=== PATIENT | female | born 1945 | race Caucasian/White ===

== ENCOUNTER 2019-11-27 15:28 | Outpatient (CLI) | payer MEDICARE, SELFPAY ==
--- NOTE | ~2019-11-27 | MR_ITS ---
EXAMINATION: MR brain/brain stem wo/w con EXAM DATE: 11/27/2019 17:00 INDICATION: Trigeminal neuralgia, right facial pain, symptoms 2 months. TECHNIQUE: Multi-sequential, multiplanar MR images of the brain, brainstem, internal auditory canals were obtained without contrast. Whole brain sagittal T1, axial diffusion, gradient echo (T2*), T1, T 2, FLAIR sequences obtained. High resolution coronal 3-D FIESTA, coronal T1 FSE, axial T1 FSPGR of t he internal auditory canals. Patient was then injected with 13 cc Multihance contrast intravenously. Postcontrast axial and coronal T1 weighted whole brain, axial and coronal high resolution T1 IAC seq uences obtained. There is no prior study for comparison. FINDINGS: No evidence of mastoid or middle ear opacification. Prepontine cistern and Meckel's caves are unremarkable. The trigeminal and 7th/8th cranial nerve complexes are symmetric, normal in course and caliber. No cerebellopontine angle masses. Posterior fossa unremarkable. There are no areas of restricted diffusion to suggest acute infarction. There is no acute hemorrhage seen on the T2*, a hemosiderin sensitive sequence. No intraparenchymal brain mass lesion. There is moderate periventricular and subcortical T2/FLAIR signal hyperintensity, nonspecific but probably rel ated to small vessel ischemic disease (microangiopathy). There is mild prominence of the sulci and ventricles related to cerebral atrophy. There are no extra-axial collections. Flow voids are seen in the cerebral arteries on the T2-weighted sequences consistent with their expected patency. Patien t has had bilateral ocular lens surgery. Soft tissue is unremarkable. There are no areas of abnorma l enhancement on the postcontrast images. IMPRESSION: 1. No acute intracranial findings. 2. Chronic age related findings. Reviewed, dictated and finalized at location B. SION TECHNICIAN
[2019-11-27 16:24] LABS: Blood Urea Nitrogen 14 mg/dL (8-26); Estimated Glomerular Filt Rate > 60
== END 2019-11-27 15:29 | disposition home or self-care (01) ==
LOC: ANHIMG 15:33
PROVIDERS: PCP Internal Medicine; Visit Provider Internal Medicine
DX: G50.0 Trigeminal neuralgia (principal)
CPT/HCPCS: 70553; A9577

== ENCOUNTER 2019-12-20 14:14 | Outpatient (CLI) | payer MEDICARE, SELFPAY ==
--- NOTE | ~2019-12-20 | XR_ITS ---
XR lumbar spine 2-3V DATE: 12/20/2019 14:48 INDICATION: Chronic low back pain for years TECHNIQUE: AP, lateral, coned lateral lumbosacral views COMPARISON: 07/16/2015 lumbar spine FINDINGS: There is extensive calcification of the abdominal aorta and iliac arteries. There is mild dextroscoliosis of the lumbar spine. There is degenerative spurring throughout the lowe r thoracic and lumbar spine, with moderate degenerative disc disease of the lumbar and lumbosacral sp ine. No fracture or bone destruction or spondylolisthesis. The lumbar pedicles are intact. The sacroiliac joints appear normal. IMPRESSION: Mild dextro scoliosis Moderate degenerative disc disease of the lumbar spine, degenerative spurring of the lower thoracic s pine Extensive abdominal aortic and iliac arterial calcifications Reviewed, dictated and finalized at location B. ICATION WORKER IMPRESSION: Mild dextro scoliosis Moderate degenerative disc disease of the lumbar spine, degenerative spurring o f the lower thoracic spine Extensive abdominal aortic and iliac arterial calcifications
--- NOTE | ~2019-12-20 | XR_ITS ---
XR hip BI wo pelvis 12/20/2019 14:49 Indication: Bilateral hip pain Procedure: 4 views of each hip Comparison: 07/16/2015 Findings: There is mild bilateral osteoarthritis of the hips. Small loose bodies adjacent to the join t space. There are extensive vascular calcifications. No acute fracture or traumatic malalignment. Pe lvic rings intact. Impression: 1: Mild bilateral symmetric osteoarthritis of the hips. Reviewed, dictated and finalized at location A. MACOLOGY ASSOCIATE Impression: 1: Mild bilateral symmetric osteoarthritis of the hips.
== END 2019-12-20 14:15 | disposition home or self-care (01) ==
LOC: CHSIMG 14:18
PROVIDERS: PCP Internal Medicine; Visit Provider Internal Medicine
DX: M25.512 Pain in left shoulder (principal); M25.511 Pain in right shoulder; J44.9 Chronic obstructive pulmonary disease, unspecified; M25.559 Pain in unspecified hip
CPT/HCPCS: 72100; 73521

== ENCOUNTER 2020-02-05 12:01 | Emergency (ER) | payer MEDICARE, SELFPAY ==
--- NOTE | ~2020-02-05 | XR_ITS ---
EXAMINATION: XR chest 2V EXAM DATE: 02/05/2020 12:43 INDICATION: Cough and congestion. Dyspnea. TECHNIQUE: Frontal and lateral projections of the chest obtained and reviewed. Comparison is made to prior examination from 07/15/2019. FINDINGS: Moderate hyperinflation. Partial right pneumonectomy. No confluent consolidation, pneumoth orax or pleural effusion suspected. Cardiomediastinal silhouette is normal. There is aortic arterial sclerosis. There is tortuosity of the aorta. There are bony degenerative changes. There is no signifi cant interval change. IMPRESSION: No acute cardiopulmonary findings. Reviewed, dictated and finalized at location B.
[2020-02-05 12:14] VITALS: BP 183/98; PULSE 98; RESP 16; TEMP 36.7; O2SAT 96
--- NOTE | 2020-02-05 12:36 | ED.SOB ---
HPI - SOB/Dyspnea General Chief Complaint: Upper Respiratory Infection Stated Complaint: ambulance Source: patient Mode of arrival: EMS Limitations: no limitations History of Present Illness HPI Narrative: 74 y.o. female with COPD has a two days of left anterior chest congestion, increased cough and sputum production- clear/yellow color has not changed. Usually produces 1 - 2 tablespoons/d. At 9:30 today felt more short of breath. She didn't want to be home alone if she was going to have respiratory symptoms. Paramedics describe talking patient into coming to the E.D. NO hx of home 02 use. Smokes 1/2 ppd. Gave herself neb. albuterol this AM; usually 3x/day. Uses Spiriva BID. Does not want to be on steroids. She denies chest/neck/arm pain, leg pain/swelling, fever/chills/sweats. Pt is hungry. has been sheltering at home; son visits periodically. None have been ill with fever/cough and have no known Covid-19 exposure. MD elicited complaint: pain with inspiration (minor left chest discomfort) Severity: mild Exacerbating factors: exertion Relieving factors: oxygen and bronchodilators Known history of: COPD Associated symptoms: denies other symptoms Treatment prior to arrival: oxygen Related Data Home oxygen amount: 2 liters Home Medications Medication Instructions Recorded Confirmed albuterol sulfate 90 mcg INHALATION Q4-5H 02/05/20 02/05/20 alprazolam 0.5 mg PO TID PRN 02/05/20 02/05/20 chlordiazepoxide-clidinium 1 cap PO BID 02/05/20 02/05/20 dicyclomine 10 mg PO BID 02/05/20 02/05/20 escitalopram oxalate 10 mg PO DAILY 02/05/20 02/05/20 montelukast 10 mg PO DAILY 02/05/20 02/05/20 tiotropium bromide [Spiriva with 1 cap INHALATION BID 02/05/20 02/05/20 HandiHaler] Allergies Allergy/AdvReac Type Severity Reaction Status Date / Time atorvastatin Allergy Unknown leg cramps Verified 11/04/17 21:20 ezetimibe Allergy Unknown drowsiness Verified 11/04/17 21:20 fluticasone Allergy Unknown Asthma Verified 11/04/17 21:20 pravastatin Allergy Unknown leg cramps Verified 11/04/17 21:20 rosuvastatin Allergy Unknown muscle Verified 11/04/17 21:20 cramps salmeterol [Advair Diskus] Allergy Unknown Asthma Verified 11/04/17 21:20 Review of Systems Constitutional: Constitutional: Reports no additional constitutional complaints ENT: Denies nasal congestion Cardiovascular: Cardiovascular: Reports no additional cardiovascular complaints Respiratory: Respiratory: Reports no additional respiratory complaints Gastrointestinal: Gastrointestinal: Denies diarrhea, Denies nausea and Denies vomiting Musculoskeletal: Musculoskeletal: Denies muscle cramps Comments: no leg pain or swelling Neurologic: Denies dizziness [facility] Past Medical History Medical History (Updated 02/05/20 @ 13:07 by Felipe Kwong MD) AAA (abdominal aortic aneurysm) COPD (chronic obstructive pulmonary disease) Social History Social History (Updated 02/05/20 @ 12:48 by Felipe Kwong MD) Smoking packs per day: 1 Smoking cigarettes per day: 20.0 Years smoked: 55 Smoking pack-years: 55.00 Smoking status: Current every day smoker Living arrangements: with family Exam Const: General: no acute distress and other (speaks in full sentences without dyspnea. Oxygen sat = 94%. ) Nutritional Appearance: average body habitus Orientation/consciousness: patient oriented x3 HENMT: General nose exam: no nasal discharge noted Throat: posterior oropharynx normal Eyes: Conjunctivae: conjunctivae normal Neck: Neck: no lymphadenopathy Chest: Chest palpation & inspection: normal inspection of the chest Other: no retraction Resp: Other: increased breath sounds left chest. scattered diffuse wheezes. No rales or rhonchi Cardio: Other: very distant heart sounds, unable to adequately auscultate. GI: GI Palp: Yes Soft to palpation and No Tenderness to palpation present (GI) Skin: General skin exam: normal color Neuro: General: patien
[2020-02-05] MEDS: ALPRAZOLAM 0.5 MG TABLET PO (12:55)
[2020-02-05] MEDS: AMOXICILLIN/CLAVULANATE K 875-125 MG TAB 1 TABLET PO (13:05)
[2020-02-05 13:15] VITALS: BP 166/94; O2SAT 94
== END 2020-02-05 13:17 | disposition home or self-care (01) ==
PROVIDERS: Emergency Provider Family Medicine; PCP Internal Medicine
DX: J44.1 Chronic obstructive pulmonary disease with (acute) exacerbation (principal); F17.200 Nicotine dependence, unspecified, uncomplicated
CPT/HCPCS: 71046; 99283; A9270

== ENCOUNTER 2020-04-01 14:45 | Outpatient (CLI) | payer MEDICARE, SELFPAY ==
--- NOTE | ~2020-04-01 | CT_ITS ---
EXAMINATION: CT chest abdomen pelvis w con EXAM DATE: 04/01/2020 15:39 INDICATION: Chronic abdominal pain. Thoracic abdominal aortic aneurysm. History of lung cancer. TECHNIQUE: Spiral CT of the chest, abdomen and pelvis was performed following intravenous injection o f 100 mL Omnipaque 350. Axial, coronal and sagittal images were reviewed. Coronal maximum intensity pixel images of chest reviewed. The dose-length product (DLP) for this examination was 560.75 mGy-c m. The exposure was tailored according to patient size (auto mA exposure control), and iterative rec onstruction (ASIR) was used as additional dose reduction technique. 09/12/2018 FINDINGS: AORTA: There is extensive aortic arterial sclerosis. There is descending thoracic aortic aneurysm abo ve the aortic hiatus measuring up to 6.1 x 4.0 cm in diameter (at this location previously measured 4 .5 x 4.0 cm). Small penetrating ulcers identified within atherosclerotic plaque on both sides lateral ly. Mildly aneurysmal dumbbell shaped mid abdominal aorta, with larger lobulation just below the keara l arteries measuring 3.0 x 2.7 cm and smaller lobulation 2.4 x 2.5 cm. Extensive bilateral iliac vania rial sclerosis as well without aneurysmal dilation. CHEST: Surgical changes from partial right-sided pneumonectomy well without evidence of local recurr ence. There is incidental aberrant right subclavian artery, a normal congenital variant. There is mod erate emphysema. There are no pleural or pericardial effusions. Tracheobronchial tree is patent. There is no mediastinal, hilar or axillary lymphadenopathy. There is no pneumothorax. Heart rebecca l in size. There is moderate coronary arterial calcification, arterial sclerosis. ABDOMEN PELVIS: Bilateral adrenal nodules previously determined to be adenomas, stable. Spleen, pancr eas are unremarkable. There is a 2 cm right liver lobe cyst centrally. Liver is otherwise unremarkabl e. Gallbladder is contracted but otherwise unremarkable. Portal and splenic veins are patent. Kidn eys enhance symmetrically. There is no hydronephrosis. The uterus is not identified and has likely been surgically resected. The bladder is unremarkable. There is no retroperitoneal or pelvic lymph adenopathy. Tiny umbilical fat-containing hernia. The appendix is not positively visualized. There is no pericecal inflammatory change to suggest appe ndicitis. The stomach and small bowel are unremarkable. There is expected amount of colonic stool. There is mild scattered colonic diverticulosis. There is no adjacent inflammatory change to suggest diverticulitis. No free intraperitoneal gas. There are no osteoblastic or osteolytic lesions iden tified. IMPRESSION: 1. Increase in size of lower thoracic descending aortic aneurysm from 5.5 to 6.1 cm 2. Smaller mid abdominal aortic dumbbell shaped aneurysm. 3. Partial right pneumonectomy. Moderate emphysema. 4. Mild colonic diverticulosis. 5. No evidence metastatic disease. Reviewed, dictated and finalized at location A. IMPRESSION: 1. Increase in size of lower thoracic descending aortic aneurysm from 5.5 to 6 .1 cm 2. Smaller mid abdominal aortic dumbbell shaped aneurysm. 3. Partial right pneumonectomy. Moderate emphysema. 4. Mild colonic diverticulosis. 5. No evidence metastatic disease.
== END 2020-04-01 14:46 | disposition home or self-care (01) ==
LOC: CHSIMG 14:46
PROVIDERS: PCP Internal Medicine; Visit Provider Internal Medicine
DX: I71.4 Abdominal aortic aneurysm, without rupture (principal); I71.2 Thoracic aortic aneurysm, without rupture; R10.9 Unspecified abdominal pain; Z85.118 Personal history of other malignant neoplasm of bronchus and lung
CPT/HCPCS: 71260; 74177; Q9965

== ENCOUNTER 2020-04-23 22:09 | Emergency (ER) | payer MEDICARE, SELFPAY ==
--- NOTE | ~2020-04-23 | XR_ITS ---
EXAMINATION: XR chest 2V EXAM DATE: 04/23/2020 22:42 INDICATION: Shortness of breath, productive cough. History COPD. TECHNIQUE: Frontal and lateral projections of the chest obtained and reviewed. Comparison is made to prior examination from 02/05/2020. FINDINGS: Surgical changes from partial right pneumonectomy with some volume loss. The lungs are ce ar. There are no pleural effusions. The cardiomediastinal silhouette is within normal limits. Ther e is no pneumothorax suspected. The bones and soft tissues are unremarkable. There is aortic arter iosclerosis. Mild to moderate thoracolumbar spondylosis. There is no significant interval change. IMPRESSION: No acute cardiopulmonary findings. Reviewed, dictated and finalized at location G.
--- NOTE | 2020-04-23 22:12 | ECG_ITS ---
Measurements Intervals [place] Rate: 90 P: 80 AR: 159 QRS: -16 QRSD: 125 T: 125 QT: 364 QTc: 447 Interpretive Statements SINUS RHYTHM POSSIBLE LEFT ATRIAL ENLARGEMENT LEFT BUNDLE BRANCH BLOCK BASELINE WANDER- I, II, AVR, AVL, V6 ABNORMAL ECG Electronically Signed On 04-24-2020 7:21:16 CDT by Todd Sam D.O.
[2020-04-23 22:17] VITALS: BP 209/112; PULSE 94; RESP 22; TEMP 37.1; O2SAT 94
[2020-04-23 22:41] LABS: Basophils Absolute Auto 0.1 K/mm3 (0.0-0.1); Basophils Percent Auto 0.7 % (0.2-1.2); Eosinophils Absolute Auto 0.1 K/mm3 (0-0.3); Eosinophils Percent Auto 0.8 % (0-4.4); Hematocrit 54.7 % (37.0-47.0); Hemoglobin 19.5 g/dL (12.0-15.0); Immature Granulocyte Absolute 0.03 K/mm3 (0.00-0.031); Immature Granulocyte Percent A 0.4 % (0-0.5); Lymphocytes Absolute Auto 1.64 K/mm3 (0.9-3.2); Lymphocytes Percent Auto 23.2 % (18.3-44.2); Mean Corpuscular HGB Conc 35.6 g/dl (32-36); Mean Corpuscular Hemoglobin 36.8 pg (26-34); Mean Corpuscular Volume 103.2 fl (80-100); Monocytes Absolute Auto 0.7 K/mm3 (0.1-0.6); Monocytes Percent Auto 10.2 % (2.6-8.5); Neutrophils Absolute Auto 4.6 K/mm3 (1.3-6.7); Neutrophils Percent Auto 64.7 % (45.5-73.1); Platelet Count Result 234 k/mm3 (150-375); Red Cell Distribution Width 14.1 % (11.5-14.5); White Blood Count 7.1 K/mm3 (4.5-10.0)
[2020-04-23 23:12] VITALS: BP 179/73; PULSE 89; RESP 18; O2SAT 95
[2020-04-23 23:19] LABS: Blood Urea Nitrogen 12 mg/dL (7-17); Calcium 9.1 mg/dL (8.4-10.2); Carbon Dioxide 29 mmol/L (22-30); Chloride 98 mmol/L (98-107); Estimated CRCL calculation 51 ml/min; Estimated Glomerular Filt Rate > 60; Glucose 103 mg/dL (65-105); Potassium 3.7 mmol/L (3.4-5.0); Sodium 133 mmol/L (137-145)
[2020-04-23] MEDS: methylPREDNISolone SOD SUCC 125 MG VIAL IV PUSH (23:20)
[2020-04-23 23:27] VITALS: O2SAT 95
[2020-04-23] MEDS: ALBUTEROL SULFATE NEB 2.5 MG/0.5 ML INH 10 MG INHALATION (23:28)
[2020-04-23] MEDS: IPRATROPIUM BR 0.02% INH SOLN 0.5 MG/2.5 ML VIAL 1 MG INHALATION (23:29)
[2020-04-23 23:34] VITALS: PULSE 75; RESP 16; O2SAT 94
[2020-04-24 00:45] VITALS: PULSE 82; RESP 18
[2020-04-24 01:08] VITALS: BP 185/83; PULSE 88; RESP 19; O2SAT 100
[2020-04-24 01:31] VITALS: BP 176/86; PULSE 103; RESP 24; O2SAT 93
--- NOTE | 2020-04-24 01:41 | ED.SOB ---
HPI - SOB/Dyspnea General Chief Complaint: Shortness of Breath/Dyspnea Stated Complaint: BREATHING, PROBLEMS IN L SIDE Time Seen by Provider: 04/23/20 23:04 Related Data Home Medications Medication Instructions Recorded Confirmed albuterol sulfate 90 mcg INHALATION Q4-5H 02/05/20 02/05/20 alprazolam 0.5 mg PO TID PRN 02/05/20 02/05/20 chlordiazepoxide-clidinium 1 cap PO BID 02/05/20 02/05/20 dicyclomine 10 mg PO BID 02/05/20 02/05/20 escitalopram oxalate 10 mg PO DAILY 02/05/20 02/05/20 montelukast 10 mg PO DAILY 02/05/20 02/05/20 tiotropium bromide [Spiriva with 1 cap INHALATION BID 02/05/20 02/05/20 HandiHaler] Allergies Allergy/AdvReac Type Severity Reaction Status Date / Time atorvastatin Allergy Unknown leg cramps Verified 11/04/17 21:20 ezetimibe Allergy Unknown drowsiness Verified 11/04/17 21:20 fluticasone Allergy Unknown Asthma Verified 11/04/17 21:20 pravastatin Allergy Unknown leg cramps Verified 11/04/17 21:20 rosuvastatin Allergy Unknown muscle Verified 11/04/17 21:20 cramps salmeterol [Advair Diskus] Allergy Unknown Asthma Verified 11/04/17 21:20 Review of Systems Review of Systems: All systems reviewed & are unremarkable except as noted in HPI and below Constitutional: Constitutional: Denies chills, Denies fever(s) and Denies weakness ENT: Denies nasal congestion and Denies sore throat Cardiovascular: Cardiovascular: Denies chest pain and Denies radiating jaw, neck or arm pain Respiratory: Respiratory: Reports cough, Reports dyspnea and Reports wheezing Gastrointestinal: Gastrointestinal: Reports abdominal pain (Chronic left lower abdominal pain moving into her upper abdomen x2 months), Denies nausea and Denies vomiting PMF Past Medical History Medical History (Updated 04/24/20 @ 02:18 by Levar Ornelas MD) AAA (abdominal aortic aneurysm) COPD (chronic obstructive pulmonary disease) Hypertension IBS (irritable bowel syndrome) Lung cancer Surgical History Surgical History (Updated 04/24/20 @ 01:43 by Levar Ornelas MD) History of appendectomy History of hysterectomy History of lobectomy of lung Social History Social History (Updated 02/05/20 @ 12:48 by Felipe Kwong MD) Smoking packs per day: 1 Smoking cigarettes per day: 20.0 Years smoked: 55 Smoking pack-years: 55.00 Smoking status: Current every day smoker Gender identity (if verbalized by the patient): Male Exam Narrative: Exam Narrative: GENERAL: Well-appearing, well-nourished, and in no acute distress. HEAD: Normocephalic, atraumatic. ENT: Mucous membranes moist. CHEST: Coarse rhonchi throughout. No respiratory distress. HEART: Regular rate and rhythm. Normal peripheral pulses. ABDOMEN: Soft, nontender, nondistended, no pulsatile mass.. EXTREMITIES: Normal range of motion. No edema. SKIN: Warm, dry, no rash. NEURO: Alert and oriented x3. Course Course Emergency Course: Patient up and ambulatory without significant dyspnea, sat 92% the entire time and speaking in full sentences. Still with some rhonchi. Discussed results. Also had a long discussion about her chronic illnesses. She seems to be suffering from depression due to the fact that she is not having limited mobility due to her lung disease and some chronic abdominal issues. Discussed methods to reduce her stress. Also discussed that she should talk to her PCP about potential evaluation and treatment of depression. Daughter present for conversation. Vital Signs Vital signs: Vital Signs Temperature 98.8 F 04/23/20 22:17 Pulse Rate 94 04/23/20 22:17 Respiratory Rate 22 H 04/23/20 22:17 Blood Pressure 209/112 H 04/23/20 22:17 Pulse Oximetry 94 04/23/20 22:17 Temperature 98.8 F 04/23/20 22:17 Pulse Rate 103 H 04/24/20 01:31 Respiratory Rate 24 H 04/24/20 01:31 Blood Pressure 176/86 H 04/24/20 01:31 Pulse Oximetry 93 04/24/20 01:31 MDM - SOB/Dyspnea Lab Data Result diagrams: 04/23/20
[2020-04-24 02:25] VITALS: BP 174/85; PULSE 81; RESP 19; TEMP 36.8; O2SAT 93
== END 2020-04-24 02:27 | disposition home or self-care (01) ==
PROVIDERS: Emergency Provider Emergency Medicine; PCP Internal Medicine
DX: J44.1 Chronic obstructive pulmonary disease with (acute) exacerbation (principal); F17.210 Nicotine dependence, cigarettes, uncomplicated; I10 Essential (primary) hypertension
CPT/HCPCS: 36415; 71046; 80048; 85025; 93005; 96374; 99284; J2930

== ENCOUNTER 2020-06-09 15:22 | Outpatient (CLI) | payer MEDICARE, SELFPAY ==
[2020-06-09 17:10] LABS: Basophils Percent Auto 0.1 % (0.2-1.2); Hematocrit 49.9 % (37.0-47.0); Hemoglobin 17.6 g/dL (12.0-15.0); Immature Granulocyte Absolute 0.04 K/mm3 (0.00-0.031); Immature Granulocyte Percent A 0.6 % (0-0.5); Lymphocytes Absolute Auto 0.58 K/mm3 (0.9-3.2); Lymphocytes Percent Auto 8.2 % (18.3-44.2); Mean Corpuscular HGB Conc 35.3 g/dl (32-36); Mean Corpuscular Hemoglobin 36.5 pg (26-34); Mean Corpuscular Volume 103.5 fl (80-100); Mean Platelet Volume 9.4 fl (7.4-10.4); Monocytes Absolute Auto 0.1 K/mm3 (0.1-0.6); Monocytes Percent Auto 1.8 % (2.6-8.5); Neutrophils Absolute Auto 6.3 K/mm3 (1.3-6.7); Neutrophils Percent Auto 89.3 % (45.5-73.1); Platelet Count Result 213 k/mm3 (150-375); Red Blood Count 4.82 M/mm3 (4.2-5.4); Red Cell Distribution Width 13.4 % (11.5-14.5); White Blood Count 7.1 K/mm3 (4.5-10.0)
[2020-06-09 17:18] LABS: Alanine Aminotransferase 22 U/L (4-35); Albumin Level 4.4 g/dL (3.5-5.1); Alkaline Phosphatase 102 U/L (38-126); Anion Gap 9 mmol/L (8-16); Aspartate Amino Transferase 31 U/L (14-36); Bilirubin,Total 0.9 mg/dL (0.2-1.3); Blood Urea Nitrogen 11 mg/dL (7-17); Calcium 9.4 mg/dL (8.4-10.2); Carbon Dioxide 29 mmol/L (22-30); Chloride 95 mmol/L (98-107); Cholesterol 186 mg/dL (0-200); Estimated Glomerular Filt Rate > 60; Glucose 136 mg/dL (65-105); HDL Direct 68 mg/dL; Sodium 133 mmol/L (137-145); Triglycerides 64 mg/dL (<150)
[2020-06-09 17:25] LABS: NT Pro B Type Natriuretic Pept 713 PG/ML (5-100)
[2020-06-09 17:29] LABS: LDL Cholesterol Direct 102 mg/dL
[2020-06-09 17:47] LABS: Thyroid Stimulating Hormone 0.324 uIU/mL (0.465-4.680)
[2020-06-09 18:06] LABS: Free T4 Free Thyroxine 1.03 ng/mL (0.78-2.19)
== END 2020-06-09 15:23 | disposition home or self-care (01) ==
PROVIDERS: PCP Internal Medicine; Visit Provider Internal Medicine Cardiovascular Disease
DX: I71.2 Thoracic aortic aneurysm, without rupture (principal); D75.1 Secondary polycythemia; R23.2 Flushing; F41.9 Anxiety disorder, unspecified; I20.0 Unstable angina; R06.00 Dyspnea, unspecified
CPT/HCPCS: 36415; 80053; 80061; 83880; 84439; 84443; 85025

== ENCOUNTER 2020-06-18 02:36 | Outpatient (CLI) | payer MEDICARE, SELFPAY ==
[2020-06-18 18:39] LABS: SARS-CoV-2 RNA PCR Negative
== END 2020-06-18 02:37 | disposition home or self-care (01) ==
LOC: ANHCOVIDDT 02:36
PROVIDERS: PCP Internal Medicine; Visit Provider Surgery
DX: Z01.812 Encounter for preprocedural laboratory examination (principal); Z20.828 Contact with and (suspected) exposure to other viral communicable diseases
CPT/HCPCS: 87635; C9803; U0003

== ENCOUNTER 2020-06-20 00:16 | Day surgery (SDC) | payer MEDICARE, SELFPAY ==
[2020-06-11 14:02] VITALS: BMI 26.8
[2020-06-20] VITALS (7 sets, daily range): BP systolic 147–194; BP diastolic 71–102; PULSE 56–96; RESP 16–26; O2SAT 95–98; BMI 26.5
--- NOTE | 2020-06-20 07:43 | WPDANESEPPF ---
Anes - Initial Pre Proc Eval Procedure: Operation Date: 06/20/20 12:00 Proposed Procedures p Esophagogastroduodenoscopy & Screening Colonoscopy - Isaias Hayes DO Date/Time: 06/20/20 07:43 Surgeon: Isaias Hayes DO Pre Op Diagnosis: Gerd/ Hx Of Polyps Patient Data Age: 74 Gender: F Height: 1.6 m Weight: 68.6 kg Allergies Allergy/AdvReac Type Severity Reaction Status Date / Time atorvastatin Allergy Unknown leg cramps Verified 06/11/20 14:00 ezetimibe Allergy Unknown drowsiness Verified 06/11/20 14:00 fluticasone Allergy Unknown Asthma Verified 06/11/20 14:00 pravastatin Allergy Unknown leg cramps Verified 06/11/20 14:00 rosuvastatin Allergy Unknown muscle Verified 06/11/20 14:00 cramps salmeterol [Advair Diskus] Allergy Unknown Asthma Verified 06/11/20 14:00 Home Medications Medication Instructions Recorded Confirmed Type albuterol sulfate 90 mcg INHALATION Q4-5H 02/05/20 06/11/20 History alprazolam 0.5 mg PO TID PRN 02/05/20 06/11/20 History amoxicillin-pot clavulanate 1 tablet PO Q12H #9 tablet 02/05/20 06/11/20 Rx chlordiazepoxide-clidinium 1 cap PO BID 02/05/20 06/11/20 History dicyclomine 10 mg PO BID 02/05/20 06/11/20 History escitalopram oxalate 10 mg PO DAILY 02/05/20 06/11/20 History montelukast 10 mg PO DAILY 02/05/20 06/11/20 History tiotropium bromide [Spiriva with 1 cap INHALATION BID 02/05/20 06/11/20 History HandiHaler] prednisone 20 mg PO BID #14 tablet 04/24/20 06/11/20 Rx aspirin [Adult Low Dose Aspirin] 81 mg PO DAILY 06/11/20 06/11/20 History clonidine HCl 0.1 mg PO DAILY 06/11/20 06/11/20 History metoprolol succinate 25 mg PO BID 06/11/20 06/11/20 History ECG: Date of Service: 04/23/20 Procedure(s): CA 12 lead EKG Accession Number(s): [id number] cc: ~ Measurements Intervals [place] Rate: 90 P: 80 [place]: 159 QRS: -16 QRSD: 125 T: 125 QT: 364 QTc: 447 Interpretive Statements SINUS RHYTHM POSSIBLE LEFT ATRIAL ENLARGEMENT LEFT BUNDLE BRANCH BLOCK BASELINE WANDER- I, II, AVR, AVL, V6 ABNORMAL ECG Electronically Signed On 04-24-2020 7:21:16 CDT by Todd Sam D.O. Dictated By: Todd Sam DO 04/23/20 2218 Other Studies: 04/19 CT: AORTA: There is extensive aortic arterial sclerosis. There is descending thoracic aortic aneurysm above the aortic hiatus measuring up to 6.1 x 4.0 cm in diameter (at this location previously measured 4.5 x 4.0 cm). Small penetrating ulcers identified within atherosclerotic plaque on both sides laterally. Mildly aneurysmal dumbbell shaped mid abdominal aorta, with larger lobulation just below the renal arteries measuring 3.0 x 2.7 cm and smaller lobulation 2.4 x 2.5 cm. Extensive bilateral iliac arterial sclerosis as well without aneurysmal dilation. Patient hx anesthesia problems: none Family hx anesthesia problems: none PMFSH Past Medical History Medical History (Updated 06/20/20 @ 07:46 by Fadi Ling MD) AAA (abdominal aortic aneurysm) Anxiety COPD (chronic obstructive pulmonary disease) emphysema Depression Hypertension IBS (irritable bowel syndrome) Lung cancer Surgical History Surgical History (Updated 04/24/20 @ 01:43 by Levar Ornelas MD) History of appendectomy History of hysterectomy History of lobectomy of lung Social History Social History (Updated 02/05/20 @ 12:48 by Felipe Kwong MD) Smoking packs per day: 1 Smoking cigarettes per day: 20.0 Years smoked: 55 Smoking pack-years: 55.00 Smoking status: Current every day smoker Gender identity (if verbalized by the patient): Female Anes - Eval Final PreProcedure Day of Procedure 06/20/20 07:43 Patient weight: overweight Heart: re
[2020-06-20] MEDS: LACTATED RINGERS 1,000 ML 150 ML IV CONT (11:02)
[2020-06-20] MEDS: LABETALOL HCL INJ 100 MG/20 ML VIAL 10 MG IV PUSH (11:48)
--- NOTE | 2020-06-20 11:53 | PM.IMHP ---
H&P: HPI History of Present Illness Date/Time: 06/20/20 11:53 Chief complaint: Gerd/ Hx Of Polyps Narrative: Hetal Stone is a 74 year old female who presents with LUQ and LLQ pain with nausea and occasional diarrhea. Workup so far has been negative. She denies hematochezia or melena. No fam hx colon cancer. Last colonoscopy done 5 years ago and polyps were removed. Review of Systems Review of Systems: All systems reviewed & are unremarkable except as noted in HPI and below Constitutional: Constitutional: Denies chills, Denies fever(s), Denies headache(s) and Denies weight loss Eyes: Eyes: Denies change in vision ENT: Denies dizziness, Denies headache(s), Denies neck mass and Denies throat swelling Cardiovascular: Cardiovascular: Denies chest pain, Denies lightheadedness and Denies dyspnea Respiratory: Respiratory: Denies cough, Denies dyspnea and Denies wheezing Gastrointestinal: Gastrointestinal: Reports abdominal pain (LLQ, LUQ), Reports change in bowel habits, Reports diarrhea, Reports nausea and Denies vomiting Genitourinary: Genitourinary: Denies hematuria and Denies dysuria Musculoskeletal: Musculoskeletal: Reports as per HPI Integumentary/Breasts: Skin/Breast: Reports as per HPI Neurologic: Denies dizziness and Denies headache(s) Allergic/Immunologic: Allergic/Immunologic: Denies throat swelling and Denies wheezing PMFSH Past Medical History Medical History AAA (abdominal aortic aneurysm) Anxiety COPD (chronic obstructive pulmonary disease) emphysema Depression Hypertension IBS (irritable bowel syndrome) Lung cancer Surgical History Surgical History History of appendectomy History of hysterectomy History of lobectomy of lung Social History Social History Smoking packs per day: 1 Smoking cigarettes per day: 20.0 Years smoked: 55 Smoking pack-years: 55.00 Smoking status: Current every day smoker Gender identity (if verbalized by the patient): Female Meds Home Medications and Allergies Home Medications Medication Instructions Recorded Confirmed Type albuterol sulfate 90 mcg INHALATION Q4-5H 02/05/20 06/11/20 History alprazolam 0.5 mg PO TID PRN 02/05/20 06/11/20 History amoxicillin-pot clavulanate 1 tablet PO Q12H #9 tablet 02/05/20 06/11/20 Rx chlordiazepoxide-clidinium 1 cap PO BID 02/05/20 06/11/20 History dicyclomine 10 mg PO BID 02/05/20 06/11/20 History escitalopram oxalate 10 mg PO DAILY 02/05/20 06/11/20 History montelukast 10 mg PO DAILY 02/05/20 06/11/20 History tiotropium bromide [Spiriva with 1 cap INHALATION BID 02/05/20 06/20/20 History HandiHaler] prednisone 20 mg PO BID #14 tablet 04/24/20 06/11/20 Rx aspirin [Adult Low Dose Aspirin] 81 mg PO DAILY 06/11/20 06/11/20 History clonidine HCl 0.1 mg PO DAILY 06/11/20 06/11/20 History metoprolol succinate 25 mg PO BID 06/11/20 06/11/20 History Allergies Allergy/AdvReac Type Severity Reaction Status Date / Time atorvastatin Allergy Unknown leg cramps Verified 06/20/20 11:50 ezetimibe Allergy Unknown drowsiness Verified 06/20/20 11:50 fluticasone Allergy Unknown Asthma Verified 06/20/20 11:50 pravastatin Allergy Unknown leg cramps Verified 06/20/20 11:50 rosuvastatin Allergy Unknown muscle Verified 06/20/20 11:50 cramps salmeterol [Advair Diskus] Allergy Unknown Asthma Verified 06/20/20 11:50 Vital Signs Vital Signs - 24 hr 06/20/20 10:40 06/20/20 11:48 Pulse Rate 96 96 Respiratory Rate 16 Blood Pressure 184/90 H Pulse Oximetry 95 Exam Const: General: no acute distress and alert Orientation/consciousness: patient oriented x3 HENMT: Head: normocephalic and atraumatic Ears: hearing grossly normal bilaterally General nose exam: Normal nares present Mouth: Yes Normal oral and palatal mucosa present Eyes: Per
== END 2020-06-20 13:39 | disposition home or self-care (01) ==
PROVIDERS: PCP Internal Medicine; Visit Provider Surgery
PROC: 0DJ08ZZ Inspection of Upper Intestinal Tract, Via Natural or Artificial Opening Endoscopic (ICD-10-PCS; CPT 43235; principal; 2020-06-20 12:00)
DX: Z12.11 Encounter for screening for malignant neoplasm of colon (principal); D12.4 Benign neoplasm of descending colon; D12.8 Benign neoplasm of rectum; K62.1 Rectal polyp; K29.80 Duodenitis without bleeding; K29.50 Unspecified chronic gastritis without bleeding; K25.7 Chronic gastric ulcer without hemorrhage or perforation; Z79.82 Long term (current) use of aspirin; I10 Essential (primary) hypertension; J44.9 Chronic obstructive pulmonary disease, unspecified; K58.9 Irritable bowel syndrome, unspecified; F41.8 Other specified anxiety disorders; I71.4 Abdominal aortic aneurysm, without rupture; Z90.2 Acquired absence of lung [part of]; F17.210 Nicotine dependence, cigarettes, uncomplicated
CPT/HCPCS: 45384; 43239; 87081; 88305; J2704; J7120

== ENCOUNTER 2020-06-23 00:42 | Emergency (ER) | payer MEDICARE, SELFPAY ==
--- NOTE | ~2020-06-23 | XR_ITS ---
EXAMINATION: XR chest 2V EXAM DATE: 06/23/2020 01:22 INDICATION: Shortness of breath. TECHNIQUE: Portable AP frontal chest x-ray was obtained. Comparison is made to prior examination from 04/23/2020. FINDINGS: Chronic surgical changes from partial right pneumonectomy. No confluent consolidation, pneu mothorax or pleural effusion suspected. Chronic hyperinflation. Moderate thoracic spondylosis. There is aortic arteriosclerosis. IMPRESSION: 1. No acute cardiopulmonary findings. Reviewed, dictated and finalized at location B.
--- NOTE | ~2020-06-23 | CT_ITS ---
EXAMINATION: CTA chest PE protocol DATE: 06/23/2020 02:25 INDICATION: Lung cancer. Elevated d-dimer. TECHNIQUE: Computed tomography angiography (CTA) of the chest was performed with 100 mL Omnipaque-350 intravenous contrast timed to evaluate the pulmonary arteries. Coronal maximum intensity projection 3D-reconstructions were created by the technologist. Automated exposure control and iterative reconst ruction technique were employed. The dose-length product was 232.52 mGy-cm. COMPARISON: Chest CT 04/01/2020 FINDINGS: There is moderate emphysema. There are changes of right upper lobectomy. A calcified left l larry nodule is consistent with old granulomatous disease. There is mild atelectasis in left lower lobe and lingula. No pleural effusion. The heart size is normal. There are coronary artery calcifications . No pericardial effusion. There is no pulmonary embolus. There is a 1.9 cm cyst in the liver. There is an aberrant right subclavian artery. There is a 4.9 cm fusiform aneurysm of descending thoracic ao rta. Partially visualized is a fusiform aneurysm of infrarenal aorta measuring at least 3.4 cm. There is thoracic levoscoliosis and severe spondylosis. IMPRESSION: 1. No pulmonary embolus. 2. Moderate emphysema. 3. 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 4. Fusiform aneurysm of infrarenal aorta measuring at least 3.4 cm, stable from 04/01/2020. Reviewed, dictated and finalized at location B.
[2020-06-23 00:41] VITALS: BP 197/104; PULSE 84; RESP 20; TEMP 36.2; O2SAT 97
--- NOTE | 2020-06-23 00:44 | ECG_ITS ---
Measurements Intervals [place] Rate: 85 P: 72 [place]: 181 QRS: -25 QRSD: 121 T: 93 QT: 405 QTc: 484 Interpretive Statements SINUS RHYTHM VENTRICULAR COUPLET POSSIBLE LEFT ATRIAL ENLARGEMENT LEFT BUNDLE BRANCH BLOCK BASELINE ARTIFACT- I, II, III, AVR, AVL, AVF, V4-V6 ABNORMAL ECG Electronically Signed On 06-23-2020 7:09:00 CDT by Todd Sam D.O.
[2020-06-23] MEDS: methylPREDNISolone SOD SUCC 125 MG VIAL IV PUSH (01:10)
[2020-06-23 01:11] LABS: Basophils Absolute Auto 0.04 K/mm3 (0.00-0.10); Basophils Percent Auto 0.6 % (0.0-1.0); Eosinophils Absolute Auto 0.02 K/mm3 (0.02-0.50); Eosinophils Percent Auto 0.3 % (1.0-6.0); Hematocrit 49.3 % (35.0-42.0); Hemoglobin 17.4 g/dL (11.7-13.8); Immature Granulocyte Absolute 0.03 K/mm3 (0.00-0.00); Immature Granulocyte Percent A 0.4 % (0.0-0.0); Lymphocytes Absolute Auto 0.91 K/mm3 (1.10-4.50); Mean Corpuscular HGB Conc 35.3 g/dL (32.0-36.0); Mean Corpuscular Hemoglobin 36.3 pg (27.0-31.0); Mean Corpuscular Volume 102.7 fL (78.0-102.0); Mean Platelet Volume 9.7 fl (9.2-11.8); Monocytes Absolute Auto 0.54 K/mm3 (0.10-0.90); Monocytes Percent Auto 7.7 % (2.0-11.0); Neutrophils Absolute Auto 5.5 K/mm3 (1.7-7.2); Platelet Count Result 209 K/mm3 (150-420); Red Cell Distribution Width 12.6 % (11.6-14.4)
[2020-06-23] MEDS: cloNIDine HCL 0.2 MG TABLET PO (01:11)
[2020-06-23 01:13] VITALS: BP 194/95; PULSE 85; RESP 20; O2SAT 97
--- NOTE | 2020-06-23 01:14 | PC.NURSE ---
pt states does not want to do head ct. increases her anxiety going into the machine. dr ochoa notified. ct head cancelled per dr ochoa pt to xray for chest xray per wheelchair with xray staff
--- NOTE | 2020-06-23 01:23 | PC.NURSE ---
pt tested negative for covid-19 last week prior to procedure colonoscopy
[2020-06-23 01:27] LABS: Partial Thromboplastin Time 29.1 SEC (22.3-31.6); Prothrombin Time 10.7 Seconds (9.64-11.0)
[2020-06-23 01:30] LABS: D Dimer 1.13 mg/L (0.19-0.50)
[2020-06-23 01:32] LABS: BNP 39 pg/mL (0-100)
--- NOTE | 2020-06-23 01:33 | PC.NURSE ---
0125 pt returned to room. feeling much better. call from lab related to elevated d-dimer , dr ochoa notified. new orders placed
[2020-06-23 01:34] LABS: Alanine Aminotransferase 27 U/L (14-59); Albumin Level 3.6 g/dL (3.4-5.0); Alkaline Phosphatase 91 U/L (46-116); Anion Gap 11 mmol/L (8-16); Aspartate Amino Transferase 30 U/L (15-37); Bilirubin,Total 0.8 mg/dL (0.00-1.00); Blood Urea Nitrogen 9 mg/dL (7-18); Calcium 8.7 mg/dL (8.5-10.1); Carbon Dioxide 29 mmol/L (21-32); Chloride 99 mmol/L (98-108); Estimated CRCL calculation 36 ml/min; Estimated Glomerular Filt Rate 55; Glucose 116 mg/dL (70-99); Osmolality Calculated 287 mOsm/kg (285-295); Potassium 3.2 mmol/L (3.5-5.1); Sodium 139 mmol/L (136-145); Total Protein 7.1 g/dL (6.4-8.2)
[2020-06-23 01:39] LABS: Troponin I < 0.02 ng/mL (0.00-0.056)
--- NOTE | 2020-06-23 01:50 | PC.NURSE ---
pt continues to decline ct head but agrees to ct chest.
--- NOTE | 2020-06-23 01:52 | PC.NURSE ---
pt to xray per wheelchair for ct of chest
--- NOTE | 2020-06-23 02:18 | PC.NURSE ---
pt returnes from xray. tolerated well. denies shortness of breath at this time
[2020-06-23 02:23] VITALS: BP 167/77; PULSE 92; RESP 20; O2SAT 94
--- NOTE | 2020-06-23 02:37 | PC.NURSE ---
pt sleeping, no respiratory distress. in room with patient
--- NOTE | 2020-06-23 02:39 | ED.SOB ---
HPI - SOB/Dyspnea General Chief Complaint: Shortness of Breath/Dyspnea Stated Complaint: 74 YO Female w/ known h/o DAKOTA, COPD, HTN brought into my ED via EMS c/o SOB and that she had run out of her medications for anxiety. Patient took a breathing treatment and was asymptomaic by the time EMS got to her home. Related Data Home Medications Medication Instructions Recorded Confirmed Spiriva with HandiHaler 1 cap INHALATION BID 02/05/20 06/23/20 albuterol sulfate 90 mcg INHALATION Q4-5H 02/05/20 06/23/20 alprazolam 0.5 mg PO TID PRN 02/05/20 06/23/20 montelukast 10 mg PO DAILY 02/05/20 06/23/20 aspirin [Adult Low Dose Aspirin] 81 mg PO DAILY 06/11/20 06/23/20 metoprolol succinate 12.5 mg PO BID 06/11/20 06/23/20 furosemide 20 mg PO DAILY 06/23/20 06/23/20 isosorbide mononitrate 15 mg PO DAILY 06/23/20 06/23/20 lisinopril 5 mg PO DAILY 06/23/20 06/23/20 Allergies Allergy/AdvReac Type Severity Reaction Status Date / Time atorvastatin Allergy Unknown leg cramps Verified 06/20/20 11:50 ezetimibe Allergy Unknown drowsiness Verified 06/20/20 11:50 fluticasone Allergy Unknown Asthma Verified 06/20/20 11:50 pravastatin Allergy Unknown leg cramps Verified 06/20/20 11:50 rosuvastatin Allergy Unknown muscle Verified 06/20/20 11:50 cramps salmeterol [Advair Diskus] Allergy Unknown Asthma Verified 06/20/20 11:50 Review of Systems Review of Systems: All systems reviewed & are unremarkable except as noted in HPI and below Constitutional: Constitutional: Reports as per HPI, Denies chills, Denies fatigue, Denies fever(s) and Denies weakness Eyes: Eyes: Reports as per HPI ENT: Reports system reviewed and no additional complaints, except as documented Cardiovascular: Cardiovascular: Reports as per HPI and Reports no additional cardiovascular complaints Respiratory: Respiratory: Reports as per HPI, Reports no additional respiratory complaints, Denies chest congestion, Denies cough, Reports dyspnea and Denies wheezing Gastrointestinal: Gastrointestinal: Reports as per HPI and Reports no additional gastrointestinal complaints Genitourinary: Genitourinary: Reports no additional female genitourinary complaints Musculoskeletal: Musculoskeletal: Reports no additional musculoskeletal complaints Integumentary/Breasts: Skin/Breast: Reports system reviewed and no additional complaints, except as docu Neurologic: Reports system reviewed and no additional complaints, except as documented Psychiatric: Psychiatric: Reports no additional psychiatric complaints Endocrine: Endocrine: Reports no additional endocrine complaints [facility] Past Medical History Medical History (Updated 06/23/20 @ 02:51 by Néstor Milner MD) AAA (abdominal aortic aneurysm) Anxiety COPD (chronic obstructive pulmonary disease) emphysema Depression Hypertension IBS (irritable bowel syndrome) Lung cancer Polycythemia Surgical History Surgical History History of appendectomy History of hysterectomy History of lobectomy of lung Social History Social History Smoking packs per day: 1 Smoking cigarettes per day: 20.0 Years smoked: 55 Smoking pack-years: 55.00 Smoking status: Current every day smoker Gender identity (if verbalized by the patient): Female Exam Const: General: healthy appearing, no acute distress and alert Orientation/consciousness: patient oriented x3 HENMT: Head: normal to inspection Eyes: Pupils: Equal, round and reactive pupils present Neck: Neck: normal visual inspection and no lymphadenopathy Chest: Chest palpation & inspection: normal inspection of the chest Resp: Effort & Inspection: normal respiratory effort, not labored, no retractions, not tachypneic and no use of accessory muscles Auscultation: clear to auscultation bilaterally, no crackles, no rales, no rhonchi, no wheezes, breath sounds present and l
[2020-06-23 03:00] VITALS: BP 140/69; PULSE 92; RESP 20; TEMP 36.6; O2SAT 92
--- NOTE | 2020-06-23 03:15 | PCDIET ---
pt assisted to car via wheelchair per rn. no respiratory distress noted
== END 2020-06-23 03:01 | disposition home or self-care (01) ==
PROVIDERS: Emergency Provider Family Medicine; PCP Internal Medicine
DX: F41.9 Anxiety disorder, unspecified (principal); E87.6 Hypokalemia; D75.1 Secondary polycythemia; R06.02 Shortness of breath
CPT/HCPCS: 36415; 71046; 71275; 80053; 83880; 84484; 85025; 85380; 85610; 85730; 93005; 96374; 96375; 99283; 99284; A9270; J2060; J2930; Q9965

== ENCOUNTER 2020-06-25 16:08 | Outpatient (CLI) | payer MEDICARE, SELFPAY ==
--- NOTE | ~2020-06-25 | US_ITS ---
EXAMINATION:US venous doppler LE BI INDICATION:Leg edema TECHNIQUE: Multiple grayscale, color flow and Doppler images of the right and left lower extremity de ep venous systems were obtained and reviewed. COMPARISON:No prior studies for comparison. FINDINGS: The common femoral, superficial femoral and popliteal veins demonstrate normal respiratory variation, augmentation and compressibility. Color flow is also seen within the posterior tibial, pe roneal, greater saphenous and profunda veins. IMPRESSION: 1: No lower extremity deep venous thrombosis. Reviewed, dictated and finalized at location A.
--- NOTE | ~2020-06-25 | US_ITS ---
US arterial ankle brachial ind INDICATION: Leg edema and peripheral arterial disease TECHNIQUE: Segmental pressures and plethysmographic and Doppler waveforms of the brachial and lower e xtremity arteries were obtained. COMPARISON: None. FINDINGS: Right and left brachial artery pressures of 165 mm Hg and 166 mm Hg, respectively, are concordant (no rmal difference <= 30 mmHg). The right ankle-brachial index (GELA) is 0.9 (normal >= 0.9-1.0). The left GELA is 0.58. Toe brachial indices are not performed. IMPRESSION: 1. Diminished left ankle brachial index consistent with moderate peripheral arterial disease. 2: Normal right ankle-brachial index. Reviewed, dictated and finalized at location A. IMPRESSION: 1. Diminished left ankle brachial index consistent with moderate peripheral art erial disease. 2: Normal right ankle-brachial index.
== END 2020-06-25 16:09 | disposition home or self-care (01) ==
LOC: CHSIMG 16:10
PROVIDERS: PCP Internal Medicine; Visit Provider Internal Medicine
DX: R60.0 Localized edema (principal); I73.9 Peripheral vascular disease, unspecified
CPT/HCPCS: 93922; 93970

== ENCOUNTER 2020-07-25 15:30 | Outpatient (CLI) | payer MEDICARE, SELFPAY ==
[2020-07-25 15:45] LABS: Basophils Absolute Auto 0.03 K/mm3 (0.00-0.10); Basophils Percent Auto 0.5 % (0.0-1.0); Eosinophils Absolute Auto 0.02 K/mm3 (0.02-0.50); Eosinophils Percent Auto 0.3 % (1.0-6.0); Hematocrit 51.3 % (35.0-42.0); Hemoglobin 17.9 g/dL (11.7-13.8); Immature Granulocyte Absolute 0.04 K/mm3 (0.00-0.00); Immature Granulocyte Percent A 0.6 % (0.0-0.0); Lymphocytes Percent Auto 20.4 % (18.0-42.0); Mean Corpuscular HGB Conc 34.9 g/dL (32.0-36.0); Mean Corpuscular Hemoglobin 35.4 pg (27.0-31.0); Mean Corpuscular Volume 101.6 fL (78.0-102.0); Mean Platelet Volume 9.6 fl (9.2-11.8); Monocytes Absolute Auto 0.58 K/mm3 (0.10-0.90); Monocytes Percent Auto 9.1 % (2.0-11.0); Neutrophils Absolute Auto 4.4 K/mm3 (1.7-7.2); Neutrophils Percent Auto 69.1 % (50.0-70.0); Platelet Count Result 183 K/mm3 (150-420); Red Blood Count 5.05 M/mm3 (4.20-5.40); Red Cell Distribution Width 12.7 % (11.6-14.4); White Blood Count 6.4 K/mm3 (4.8-10.8)
[2020-07-25 16:13] LABS: Anion Gap 7 mmol/L (8-16); Blood Urea Nitrogen 11 mg/dL (7-18); Calcium 8.8 mg/dL (8.5-10.1); Carbon Dioxide 33 mmol/L (21-32); Chloride 100 mmol/L (98-108); Estimated Glomerular Filt Rate > 60; Glucose 114 mg/dL (70-99); Osmolality Calculated 290 mOsm/kg (285-295); Potassium 3.9 mmol/L (3.5-5.1); Sodium 140 mmol/L (136-145)
== END 2020-07-25 15:31 | disposition home or self-care (01) ==
LOC: CHSLAB 15:31
PROVIDERS: PCP Internal Medicine; Visit Provider Internal Medicine Cardiovascular Disease
DX: R94.39 Abnormal result of other cardiovascular function study (principal)
CPT/HCPCS: 36415; 80048; 85025

== ENCOUNTER 2020-08-18 18:15 | Emergency (ER) | payer MEDICARE, SELFPAY ==
[2020-08-18] VITALS (7 sets, daily range): BP systolic 168–198; BP diastolic 81–87; PULSE 65–96; RESP 18–25; TEMP 36.7; O2SAT 96–97
--- NOTE | ~2020-08-18 | XR_ITS ---
EXAMINATION: XR chest 2V EXAM DATE: 08/18/2020 18:53 INDICATION: Sob/Wheezing, Cardiac Cath Last Week, lt Upper Back/Neck/Arm Pain . TECHNIQUE: Frontal and lateral projections of the chest obtained and reviewed. Comparison is made to prior examination from 06/23/2020. FINDINGS: Surgical changes from partial right-sided pneumonectomy, with some volume loss. There is n o pneumothorax suspected. There are no pleural effusions. Cardiomediastinal silhouette is normal. The arch There are bony degenerative changes. There is no focal acute air space disease. There is no sig nificant interval change. IMPRESSION: Chronic findings and surgical changes. Reviewed, dictated and finalized at location A.
--- NOTE | 2020-08-18 18:21 | ECG_ITS ---
Measurements Intervals [place] Rate: 64 P: 69 [place]: 147 QRS: -20 QRSD: 130 T: 127 QT: 417 QTc: 430 Interpretive Statements SINUS RHYTHM POSSIBLE LEFT ATRIAL ENLARGEMENT LEFT BUNDLE BRANCH BLOCK ABNORMAL ECG Electronically Signed On 08-18-2020 19:31:59 CDT by Todd Sam D.O.
--- NOTE | 2020-08-18 18:33 | ED.SOB ---
HPI - SOB/Dyspnea General Chief Complaint: Shortness of Breath/Dyspnea Stated Complaint: SOB Time Seen by Provider: 08/18/20 18:22 Source: patient Mode of arrival: wheelchair Limitations: no limitations History of Present Illness HPI Narrative: Patient is a 75 yo female who presents with complaints of shortness of breath. Patient has a history of COPD, continues smoking. History of lung cancer with lobectomy. She reports increased shortness of breath since 08/07 after cardiac cath. She reports generalized body aches and weakness. She denies fever, denies exposure to known Covid. She does not wear oxygen at home. Patient also reports headache and cough with thickened sputum. She reports using neb x 2 at home with moderate relief. Patient tearful and reports that everything hurts and no one wants to help me . Patient reports calling pcp today with no response. MD elicited complaint: shortness of breath Pertinent past history: COPD Related Data Home Medications Medication Instructions Recorded Confirmed Spiriva with HandiHaler 1 cap INHALATION BID 02/05/20 06/23/20 albuterol sulfate 90 mcg INHALATION Q4-5H 02/05/20 06/23/20 alprazolam 0.5 mg PO TID PRN 02/05/20 06/23/20 montelukast 10 mg PO DAILY 02/05/20 06/23/20 aspirin [Adult Low Dose Aspirin] 81 mg PO DAILY 06/11/20 06/23/20 metoprolol succinate 12.5 mg PO BID 06/11/20 06/23/20 furosemide 20 mg PO DAILY 06/23/20 06/23/20 isosorbide mononitrate 15 mg PO DAILY 06/23/20 06/23/20 lisinopril 5 mg PO DAILY 06/23/20 06/23/20 Allergies Allergy/AdvReac Type Severity Reaction Status Date / Time atorvastatin Allergy Unknown leg cramps Verified 06/20/20 11:50 ezetimibe Allergy Unknown drowsiness Verified 06/20/20 11:50 fluticasone Allergy Unknown Asthma Verified 06/20/20 11:50 pravastatin Allergy Unknown leg cramps Verified 06/20/20 11:50 rosuvastatin Allergy Unknown muscle Verified 06/20/20 11:50 cramps salmeterol [Advair Diskus] Allergy Unknown Asthma Verified 06/20/20 11:50 Review of Systems Review of Systems: Narrative: CONSTITUTIONAL: Denies fever, chills, or sweats. EYES: Denies visual changes, redness, or discharge. ENT: Denies rhinorrhea, congestion, sore throat, or otalgia. CARDIOVASCULAR: Denies chest pain, palpitations, or edema. RESPIRATORY: Denies cough, reports dyspnea. GASTROINTESTINAL: Denies abdominal pain, nausea, vomiting, or diarrhea. GENITOURINARY: Denies dysuria or hematuria. SKIN: Denies rash or itching. MUSCULOSKELETAL: Denies back pain, joint pain, or myalgia. NEUROLOGIC: Denies headache, numbness, dizziness, or weakness. PSYCHIATRIC: Denies anxiety or depression. [facility] Past Medical History Medical History AAA (abdominal aortic aneurysm) Anxiety COPD (chronic obstructive pulmonary disease) emphysema Depression Hypertension IBS (irritable bowel syndrome) Lung cancer Polycythemia Surgical History Surgical History History of appendectomy History of hysterectomy History of lobectomy of lung Social History Social History Smoking packs per day: 1 Smoking cigarettes per day: 20.0 Years smoked: 55 Smoking pack-years: 55.00 Smoking status: Current every day smoker Gender identity (if verbalized by the patient): Female Exam Narrative: Exam Narrative: GENERAL: Well-appearing, well-nourished, and in no acute distress. HEAD: Normocephalic, atraumatic. EYES: No redness or drainage. ENT: Mucous membranes pink and moist. CHEST: Expiratory wheezes noted bilaterally. HEART: Regular rate and rhythm. No murmur appreciated. Normal peripheral pulses. GI: Soft, nontender without rebound, or guarding. No distention. Bowel sounds normal in all quadrants. MUSCULOSKELETAL: No bony tenderness. EXTREMITIES: Normal range of motion. No edema. SKIN: Warm, dry, no rash. NEUR
[2020-08-18 18:39] LABS: Basophils Percent Auto 0.4 % (0.2-1.2); Eosinophils Percent Auto 0.4 % (0-4.4); Hematocrit 50.4 % (37.0-47.0); Hemoglobin 17.7 g/dL (12.0-15.0); Immature Granulocyte Absolute 0.03 K/mm3 (0.00-0.031); Immature Granulocyte Percent A 0.4 % (0-0.5); Lymphocytes Absolute Auto 1.44 K/mm3 (0.9-3.2); Lymphocytes Percent Auto 21.4 % (18.3-44.2); Mean Corpuscular HGB Conc 35.1 g/dl (32-36); Mean Corpuscular Hemoglobin 34.3 pg (26-34); Mean Corpuscular Volume 97.7 fl (80-100); Mean Platelet Volume 9.4 fl (7.4-10.4); Monocytes Absolute Auto 0.7 K/mm3 (0.1-0.6); Neutrophils Absolute Auto 4.5 K/mm3 (1.3-6.7); Neutrophils Percent Auto 67.4 % (45.5-73.1); Platelet Count Result 234 k/mm3 (150-375); Red Blood Count 5.16 M/mm3 (4.2-5.4); Red Cell Distribution Width 12.7 % (11.5-14.5); White Blood Count 6.7 K/mm3 (4.5-10.0)
--- NOTE | 2020-08-18 19:05 | PC.NURSE ---
REPORT TO МАРИЯ KING AT THIS TIME, HE HAS ASSUMED PT CARE.
[2020-08-18 19:22] LABS: Anion Gap 1 mmol/L (8-16); Blood Urea Nitrogen 10 mg/dL (7-17); Calcium 9.5 mg/dL (8.4-10.2); Carbon Dioxide 37 mmol/L (22-30); Chloride 98 mmol/L (98-107); Estimated CRCL calculation 49 ml/min; Estimated Glomerular Filt Rate > 60; Glucose 98 mg/dL (65-105); Potassium 4.7 mmol/L (3.4-5.0); Sodium 136 mmol/L (137-145)
[2020-08-18 19:35] LABS: NT Pro B Type Natriuretic Pept 323 PG/ML (5-100); Troponin I < 0.012 ng/mL (0.000-0.034)
[2020-08-18] MEDS: ALBUTEROL SULFATE NEB 2.5 MG/0.5 ML INH 5 MG INHALATION (20:11)
[2020-08-18] MEDS: IPRATROPIUM BR 0.02% INH SOLN 0.5 MG/2.5 ML VIAL INHALATION (20:11)
[2020-08-18] MEDS: methylPREDNISolone SOD SUCC 125 MG VIAL IV PUSH (20:17)
--- NOTE | 2020-08-18 20:18 | PCRCNOTE ---
Patient refused ABG. PEDRO Beth notified of refusal.
--- NOTE | 2020-08-18 20:28 | PCRCNOTE ---
Pt had improved air movement with nebulizer treatment but still had inspiratory & expiratory wheezes. I advised the patient that she would benefit from a continuous nebulizer treatment. She refused that treatment because she did not want to stay long enough for an additional treatment. PEDRO Beth was informed.
[2020-08-18] MEDS: IBUPROFEN 600 MG TABLET PO (21:12)
== END 2020-08-18 21:45 | disposition home or self-care (01) ==
PROVIDERS: Emergency Medicine; Emergency Provider Nurse Practitioner; PCP Internal Medicine
DX: J44.1 Chronic obstructive pulmonary disease with (acute) exacerbation (principal); Z85.118 Personal history of other malignant neoplasm of bronchus and lung; Z90.2 Acquired absence of lung [part of]; F17.210 Nicotine dependence, cigarettes, uncomplicated; Z79.82 Long term (current) use of aspirin; F41.9 Anxiety disorder, unspecified; K58.9 Irritable bowel syndrome, unspecified; D75.1 Secondary polycythemia; I44.7 Left bundle-branch block, unspecified
CPT/HCPCS: 36415; 71046; 80048; 83880; 84484; 85025; 93005; 94640; 96374; 96375; 99284; A9270; J0131; J2930

== ENCOUNTER 2020-09-02 16:02 | Outpatient (CLI) | payer MEDICARE, SELFPAY ==
[2020-09-02 16:18] LABS: Basophils Absolute Auto 0.03 K/mm3 (0.00-0.10); Basophils Percent Auto 0.4 % (0.0-1.0); Eosinophils Absolute Auto 0.06 K/mm3 (0.02-0.50); Eosinophils Percent Auto 0.8 % (1.0-6.0); Hematocrit 47.3 % (35.0-42.0); Hemoglobin 15.8 g/dL (11.7-13.8); Immature Granulocyte Absolute 0.04 K/mm3 (0.00-0.00); Immature Granulocyte Percent A 0.5 % (0.0-0.0); Lymphocytes Absolute Auto 1.56 K/mm3 (1.10-4.50); Lymphocytes Percent Auto 20.1 % (18.0-42.0); Mean Corpuscular HGB Conc 33.4 g/dL (32.0-36.0); Mean Corpuscular Hemoglobin 33.1 pg (27.0-31.0); Mean Platelet Volume 9.1 fl (9.2-11.8); Monocytes Absolute Auto 0.56 K/mm3 (0.10-0.90); Monocytes Percent Auto 7.2 % (2.0-11.0); Neutrophils Absolute Auto 5.5 K/mm3 (1.7-7.2); Platelet Count Result 231 K/mm3 (150-420); Red Blood Count 4.78 M/mm3 (4.20-5.40); White Blood Count 7.8 K/mm3 (4.8-10.8)
[2020-09-02 16:58] LABS: Anion Gap 6 mmol/L (8-16); Blood Urea Nitrogen 10 mg/dL (7-18); Calcium 9.1 mg/dL (8.5-10.1); Carbon Dioxide 36 mmol/L (21-32); Chloride 100 mmol/L (98-108); Estimated Glomerular Filt Rate > 60; Glucose 95 mg/dL (70-99); Osmolality Calculated 293 mOsm/kg (285-295); Potassium 3.9 mmol/L (3.5-5.1); Sodium 142 mmol/L (136-145)
== END 2020-09-02 16:03 | disposition home or self-care (01) ==
LOC: CHSLAB 16:05
PROVIDERS: PCP Internal Medicine; Visit Provider Internal Medicine Interventional Cardiology
DX: I20.9 Angina pectoris, unspecified (principal)
CPT/HCPCS: 36415; 80048; 85025

== ENCOUNTER 2020-09-07 00:15 | Emergency (ER) | payer MEDICARE, SELFPAY ==
[2020-09-07] VITALS (21 sets, daily range): BP systolic 140–161; BP diastolic 73–91; PULSE 73–92; RESP 14–26; O2SAT 91–100
--- NOTE | ~2020-09-07 | XR_ITS ---
EXAMINATION: XR chest 2V DATE: 09/07/2020 01:18 INDICATION: Shortness of breath. Chronic obstructive pulmonary disease exacerbation. TECHNIQUE: Frontal and lateral views of the chest were obtained. COMPARISON: Chest 2 views 08/18/2020, chest CT 06/23/2020 FINDINGS: There is volume loss of right lung from right upper lobectomy. A calcified left lung nodule s consistent with old granulomatous disease. There is mild scarring at right lung base. No pleural ef fusion or pneumothorax. The heart size is normal. IMPRESSION: 1. Stable mild scarring at right lung base status post right upper lobectomy. Reviewed, dictated and finalized at location A. 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
--- NOTE | 2020-09-07 00:01 | ED.ABDPAIN ---
HPI - Abdominal Pain General Chief Complaint: Shortness of Breath/Dyspnea Stated Complaint: SOB Source: patient and EMS Mode of arrival: EMS Limitations: no limitations History of Present Illness HPI narrative: The patient is a 75 year old female w/ known h/o DAKOTA, COPD, HTN who presented via EMS for evaluation of shortness of breath. Patient reportedly had some increasing shortness of breath this evening while at home, gave herself a nebulizer treatment which improved her breathing, however patient was still feeling mildly short of breath, that she called an ambulance. The time of their assessment, patient oxygen saturation was 95% on room air, however the ambulance crew states they did place the patient on 2 L oxygen via nasal cannula. Patient arrives in no respiratory distress. She does have some audible wheezing. She is denying any chest pain. Patient with recent stents to mid RCA and LAD on outpatient basis at [facility] for unstable angina. Patient did not require an admission with this. Patient denies any current abdominal pain. She denies fever, chills or increased sputum production. Patient states symptoms seem consistent with a COPD exacerbation. Related Data Home Medications Medication Instructions Recorded Confirmed Spiriva with HandiHaler 1 cap INHALATION BID 02/05/20 06/23/20 albuterol sulfate 90 mcg INHALATION Q4-5H 02/05/20 06/23/20 alprazolam 0.5 mg PO TID PRN 02/05/20 06/23/20 montelukast 10 mg PO DAILY 02/05/20 06/23/20 aspirin [Adult Low Dose Aspirin] 81 mg PO DAILY 06/11/20 06/23/20 metoprolol succinate 12.5 mg PO BID 06/11/20 06/23/20 furosemide 20 mg PO DAILY 06/23/20 06/23/20 isosorbide mononitrate 15 mg PO DAILY 06/23/20 06/23/20 lisinopril 5 mg PO DAILY 06/23/20 06/23/20 Allergies Allergy/AdvReac Type Severity Reaction Status Date / Time atorvastatin Allergy Unknown leg cramps Verified 06/20/20 11:50 ezetimibe Allergy Unknown drowsiness Verified 06/20/20 11:50 fluticasone Allergy Unknown Asthma Verified 06/20/20 11:50 pravastatin Allergy Unknown leg cramps Verified 06/20/20 11:50 rosuvastatin Allergy Unknown muscle Verified 06/20/20 11:50 cramps salmeterol [Advair Diskus] Allergy Unknown Asthma Verified 06/20/20 11:50 Review of Systems Review of Systems: Narrative: CONSTITUTIONAL: Denies fever, chills, or sweats. EYES: Denies visual changes, redness, or discharge. ENT: Denies rhinorrhea, congestion, sore throat, or otalgia. CARDIOVASCULAR: Denies chest pain, palpitations, or edema. RESPIRATORY: Reports cough and shortness of breath GASTROINTESTINAL: Denies abdominal pain, nausea, vomiting, or diarrhea. GENITOURINARY: Denies dysuria or hematuria. SKIN: Denies rash or itching. MUSCULOSKELETAL: Denies back pain, joint pain, or myalgia. NEUROLOGIC: Denies headache, numbness, or weakness. PSYCHIATRIC: Reports history of anxiety PMFSH Past Medical History Medical History AAA (abdominal aortic aneurysm) Anxiety COPD (chronic obstructive pulmonary disease) emphysema Depression Hypertension IBS (irritable bowel syndrome) Lung cancer Polycythemia Surgical History Surgical History History of appendectomy History of hysterectomy History of lobectomy of lung Social History Social History Smoking packs per day: 1 Smoking cigarettes per day: 20.0 Years smoked: 55 Smoking pack-years: 55.00 Smoking status: Current every day smoker Gender identity (if verbalized by the patient): Female Exam Narrative: Exam Narrative: GENERAL: Awake, alert, conversant HEAD: Normocephalic, atraumatic. EYES: PERRLA and EOMI. ENT: Nares clear, no rhinorrhea or epistaxis. Mucous membranes moist. NECK: Supple. CHEST: No respiratory distress, coarse breath sounds with expiratory wheezing at the mid and lower lung zones bilater
--- NOTE | 2020-09-07 00:27 | ECG_ITS ---
Measurements Intervals [place] Rate: 78 P: 76 [place]: 167 QRS: -9 QRSD: 135 T: 111 QT: 421 QTc: 480 Interpretive Statements SINUS RHYTHM POSSIBLE LEFT ATRIAL ENLARGEMENT LEFT BUNDLE BRANCH BLOCK BASELINE ARTIFACT- I, II, III, AVL, V5 ABNORMAL ECG Electronically Signed On 09-07-2020 7:58:18 CUSTOMER SERVICE AGENT by Todd Sam D.O.
[2020-09-07] MEDS: methylPREDNISolone SOD SUCC 125 MG VIAL IV PUSH (00:44)
[2020-09-07] MEDS: MAGNESIUM SULF 2 GM/WATER 50ML 2 GM/50 ML BAG IVPB (00:44)
[2020-09-07 00:51] LABS: Basophils Percent Auto 0.6 % (0.2-1.2); Eosinophils Absolute Auto 0.1 K/mm3 (0-0.3); Eosinophils Percent Auto 1.2 % (0-4.4); Hematocrit 45.5 % (37.0-47.0); Immature Granulocyte Absolute 0.03 K/mm3 (0.00-0.031); Immature Granulocyte Percent A 0.6 % (0-0.5); Lymphocytes Absolute Auto 1.48 K/mm3 (0.9-3.2); Lymphocytes Percent Auto 28.5 % (18.3-44.2); Mean Corpuscular HGB Conc 35.2 g/dl (32-36); Mean Corpuscular Volume 96.6 fl (80-100); Monocytes Absolute Auto 0.5 K/mm3 (0.1-0.6); Monocytes Percent Auto 10.4 % (2.6-8.5); Neutrophils Absolute Auto 3.1 K/mm3 (1.3-6.7); Neutrophils Percent Auto 58.7 % (45.5-73.1); Platelet Count Result 176 k/mm3 (150-375); Red Blood Count 4.71 M/mm3 (4.2-5.4); Red Cell Distribution Width 13.1 % (11.5-14.5); White Blood Count 5.2 K/mm3 (4.5-10.0)
[2020-09-07 01:09] LABS: Prothrombin Time 13.4 Seconds (11.1-14.7)
[2020-09-07 01:09] LABS: Anion Gap 1.99999 mmol/L (8-16); Blood Urea Nitrogen 9 mg/dL (7-17); Calcium 9.2 mg/dL (8.4-10.2); Carbon Dioxide > 40 mmol/L (22-30); Chloride 89 mmol/L (98-107); Estimated CRCL calculation 64 ml/min; Estimated Glomerular Filt Rate > 60; Glucose 96 mg/dL (65-105); Potassium 3.7 mmol/L (3.4-5.0); Sodium 131 mmol/L (137-145)
[2020-09-07 01:10] LABS: Partial Thromboplastin Time 32.8 SECONDS (22.3-36.8)
[2020-09-07 01:31] LABS: NT Pro B Type Natriuretic Pept 141 PG/ML (5-100)
[2020-09-07 01:34] LABS: Troponin I 0.073 ng/mL (0.000-0.034)
[2020-09-07] MEDS: ALBUTEROL SULFATE NEB 2.5 MG/0.5 ML INH 5 MG INHALATION (01:57)
[2020-09-07] MEDS: IPRATROPIUM BR 0.02% INH SOLN 0.5 MG/2.5 ML VIAL INHALATION (01:57)
[2020-09-07] MEDS: LORazepam INJ (*CRX) 2 MG/ML VIAL 0.5 MG IV PUSH (02:33)
[2020-09-07 03:07] LABS: Troponin I 0.066 ng/mL (0.000-0.034)
[2020-09-07] MEDS: ALBUTEROL SULFATE NEB 2.5 MG/0.5 ML INH 10 MG INHALATION (03:25)
== END 2020-09-07 04:26 | disposition home or self-care (01) ==
PROVIDERS: Emergency Provider Emergency Medicine; PCP Internal Medicine
DX: J44.1 Chronic obstructive pulmonary disease with (acute) exacerbation (principal); I10 Essential (primary) hypertension; Z79.82 Long term (current) use of aspirin; Z85.118 Personal history of other malignant neoplasm of bronchus and lung; K58.9 Irritable bowel syndrome, unspecified; F41.1 Generalized anxiety disorder; F32.9 Major depressive disorder, single episode, unspecified; Z90.2 Acquired absence of lung [part of]; F17.210 Nicotine dependence, cigarettes, uncomplicated; I44.7 Left bundle-branch block, unspecified; R94.31 Abnormal electrocardiogram [ECG] [EKG]
CPT/HCPCS: 36415; 71046; 80048; 83880; 84484; 85025; 85610; 85730; 93005; 94640; 96365; 96375; 99284; J2060; J2930; J3475

== ENCOUNTER 2020-10-08 17:41 | Emergency (ER) | payer MEDICARE, SELFPAY ==
--- NOTE | ~2020-10-08 | XR_ITS ---
EXAMINATION: XR chest 1V portable INDICATION: Shortness of breath TECHNIQUE: Portable AP chest at 1900 hours COMPARISON: 09/07/2020 FINDINGS: There are changes of right partial pneumonectomy which include right-sided volume loss, chr onic elevation of the right hemidiaphragm, and suture lines in the right upper lung zone and right hi lum. The lungs are free of acute opacities. There is no pleural effusion or pneumothorax. The heart s ize is normal. IMPRESSION: 1. No acute cardiopulmonary abnormality. Reviewed, dictated and finalized at location A. 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
[2020-10-08 17:44] VITALS: BP 182/84; PULSE 112; RESP 32; TEMP 36.4; O2SAT 92
--- NOTE | 2020-10-08 17:54 | ED.SOB ---
HPI - SOB/Dyspnea General Chief Complaint: Shortness of Breath/Dyspnea Stated Complaint: copd, trouble breathing Time Seen by Provider: 10/08/20 17:54 History of Present Illness HPI Narrative: 75 yo female w/ h/o COPD, CHF presents to the ED for SOB. She has been more SOB x1 day. This is associated with cough and wheezing. She does note increased swelling in the lower extremities, although this is more halfway. No CP, Fever, sick contacts. Related Data Home Medications Medication Instructions Recorded Confirmed Spiriva with HandiHaler 1 cap INHALATION BID 02/05/20 06/23/20 albuterol sulfate 90 mcg INHALATION Q4-5H 02/05/20 06/23/20 alprazolam 0.5 mg PO TID PRN 02/05/20 06/23/20 montelukast 10 mg PO DAILY 02/05/20 06/23/20 aspirin [Adult Low Dose Aspirin] 81 mg PO DAILY 06/11/20 06/23/20 metoprolol succinate 12.5 mg PO BID 06/11/20 06/23/20 furosemide 20 mg PO DAILY 06/23/20 06/23/20 isosorbide mononitrate 15 mg PO DAILY 06/23/20 06/23/20 lisinopril 5 mg PO DAILY 06/23/20 06/23/20 Allergies Allergy/AdvReac Type Severity Reaction Status Date / Time atorvastatin Allergy Unknown leg cramps Verified 06/20/20 11:50 ezetimibe Allergy Unknown drowsiness Verified 06/20/20 11:50 fluticasone Allergy Unknown Asthma Verified 06/20/20 11:50 pravastatin Allergy Unknown leg cramps Verified 06/20/20 11:50 rosuvastatin Allergy Unknown muscle Verified 06/20/20 11:50 cramps salmeterol [Advair Diskus] Allergy Unknown Asthma Verified 06/20/20 11:50 Review of Systems Review of Systems: All systems reviewed & are unremarkable except as noted in HPI and below Constitutional: Constitutional: Denies chills, Denies fever(s) and Denies weakness Cardiovascular: Cardiovascular: Denies chest pain Respiratory: Respiratory: Reports cough, Reports dyspnea and Reports wheezing Gastrointestinal: Gastrointestinal: Denies abdominal pain and Denies nausea Genitourinary: Genitourinary: Denies dysuria Musculoskeletal: Musculoskeletal: Denies back pain Neurologic: Denies confusion, Denies dizziness and Denies weakness [facility] Past Medical History Medical History AAA (abdominal aortic aneurysm) Anxiety COPD (chronic obstructive pulmonary disease) emphysema Depression Hypertension IBS (irritable bowel syndrome) Lung cancer Polycythemia Surgical History Surgical History History of appendectomy History of hysterectomy History of lobectomy of lung Social History Social History Smoking packs per day: 1 Smoking cigarettes per day: 20.0 Years smoked: 55 Smoking pack-years: 55.00 Smoking status: Current every day smoker Gender identity (if verbalized by the patient): Female Exam Const: General: no acute distress, alert and ill appearing chronically Orientation/consciousness: patient oriented x3 HENMT: Head: normal to inspection Neck: Neck: normal visual inspection and no lymphadenopathy Chest: Chest palpation & inspection: no tenderness Resp: Effort & Inspection: labored and tachypneic Auscultation: no rales, no rhonchi and wheezes Cardio: Jugular venous distension: no JVD Rate: regular rate Rhythm: regular rhythm Heart sounds: no murmurs GI: Inspection: non-distended GI Palp: Yes Soft to palpation and No Tenderness to palpation present (GI) Skin: General skin exam: normal color Neuro: General: patient oriented x3 and moves all extremities Speech: normal speech Extrem: General: edema bilateral (worse on the left) Psych: Appearance: well kempt Affect: normal affect Course Vital Signs Vital signs: Vital Signs Temperature 36.4 C L 10/08/20 17:44 Pulse Rate 112 H 10/08/20 17:44 Respiratory Rate 32 H 10/08/20 17:44 Blood Pressure 182/84 H 10/08/20 17:44 Pulse Oximetry 92 10/08/20 17:44 Temperature 36.4 C L 10/08/20
[2020-10-08 18:03] VITALS: BP 182/84; PULSE 112; RESP 20; TEMP 36.4; O2SAT 92
--- NOTE | 2020-10-08 18:17 | ECG_ITS ---
Measurements Intervals [place] Rate: 100 P: 80 [place]: 171 QRS: -17 QRSD: 136 T: 127 QT: 376 QTc: 486 Interpretive Statements SINUS TACHYCARDIA POSSIBLE LEFT ATRIAL ENLARGEMENT LEFT BUNDLE BRANCH BLOCK ABNORMAL ECG Electronically Signed On 10-09-2020 7:10:48 PROGRAM COUNSELOR by Todd Sam D.O.
[2020-10-08 18:35] VITALS: PULSE 112; RESP 20
[2020-10-08] MEDS: IPRATROPIUM BR 0.02% INH SOLN 0.5 MG/2.5 ML VIAL INHALATION (18:35)
[2020-10-08] MEDS: ALBUTEROL SULFATE NEB 2.5 MG/0.5 ML INH 5 MG INHALATION (18:35)
[2020-10-08] MEDS: methylPREDNISolone SOD SUCC 125 MG VIAL IV PUSH (18:40)
[2020-10-08 18:46] VITALS: PULSE 115; RESP 20
[2020-10-08] MEDS: FUROSEMIDE INJ 40 MG/4 ML VIAL IV PUSH (18:57)
[2020-10-08 19:24] LABS: Anion Gap 5 mmol/L (8-16); Blood Urea Nitrogen 7 mg/dL (7-17); Calcium 9.2 mg/dL (8.4-10.2); Carbon Dioxide 36 mmol/L (22-30); Chloride 94 mmol/L (98-107); Estimated CRCL calculation 56 ml/min; Estimated Glomerular Filt Rate > 60; Glucose 88 mg/dL (65-105); Sodium 135 mmol/L (137-145)
[2020-10-08 19:25] LABS: Prothrombin Time 13.8 Seconds (11.1-14.7)
[2020-10-08 19:26] LABS: Partial Thromboplastin Time 32.6 SECONDS (22.3-36.8)
[2020-10-08 19:35] LABS: NT Pro B Type Natriuretic Pept 273 PG/ML (5-100); Troponin I 0.014 ng/mL (0.000-0.034)
[2020-10-08] MEDS: POTASSIUM CHLORIDE 20 MEQ TABLET 40 MEQ PO (19:39)
[2020-10-08 19:42] VITALS: PULSE 98; RESP 20; O2SAT 98
[2020-10-08 19:47] LABS: Basophils Absolute Auto 0.1 K/mm3 (0.0-0.1); Eosinophils Percent Auto 0.7 % (0-4.4); Hematocrit 49.1 % (37.0-47.0); Hemoglobin 17.4 g/dL (12.0-15.0); Immature Granulocyte Absolute 0.03 K/mm3 (0.00-0.031); Immature Granulocyte Percent A 0.5 % (0-0.5); Lymphocytes Absolute Auto 1.52 K/mm3 (0.9-3.2); Lymphocytes Percent Auto 25.7 % (18.3-44.2); Mean Corpuscular HGB Conc 35.4 g/dl (32-36); Mean Corpuscular Hemoglobin 33.2 pg (26-34); Mean Corpuscular Volume 93.7 fl (80-100); Mean Platelet Volume 9.1 fl (7.4-10.4); Monocytes Absolute Auto 0.6 K/mm3 (0.1-0.6); Neutrophils Absolute Auto 3.7 K/mm3 (1.3-6.7); Neutrophils Percent Auto 62.1 % (45.5-73.1); Platelet Count Result 222 k/mm3 (150-375); Red Blood Count 5.24 M/mm3 (4.2-5.4); Red Cell Distribution Width 13.2 % (11.5-14.5); White Blood Count 5.9 K/mm3 (4.5-10.0)
[2020-10-08 20:37] VITALS: BP 182/96; PULSE 88; RESP 18; TEMP 36.4; O2SAT 96
== END 2020-10-08 20:38 | disposition home or self-care (01) ==
PROVIDERS: Emergency Provider Emergency Medicine; PCP Internal Medicine
DX: J44.1 Chronic obstructive pulmonary disease with (acute) exacerbation (principal); I11.0 Hypertensive heart disease with heart failure; I50.9 Heart failure, unspecified; F32.9 Major depressive disorder, single episode, unspecified; Z85.118 Personal history of other malignant neoplasm of bronchus and lung
CPT/HCPCS: 36415; 71045; 80048; 83880; 84484; 85025; 85610; 85730; 93005; 94640; 96374; 96375; 99284; A9270; J1940; J2930

== ENCOUNTER 2020-11-20 14:08 | Outpatient (CLI) | payer MEDICARE, SELFPAY ==
--- NOTE | ~2020-11-20 | CT_ITS ---
EXAMINATION: CTA abd aorta runoff DATE: 11/20/2020 15:27 INDICATION: Abdominal aortic aneurysm, peripheral arterial disease TECHNIQUE: Computed tomographic angiography (CTA) of the abdomen, pelvis, and both lower extremities was performed with 150 mL Omnipaque-350 intravenous contrast. The dose-length product (DLP) was 1064. 06 mGy-cm. Maximum intensity projection 3D-reconstructions of the arteries were created by the techno [employer] on a separate workstation. Automated exposure control and iterative reconstruction technique w ere employed. COMPARISON: 06/23/2020, 04/01/2020 FINDINGS: ABDOMINAL AORTA AND ITS BRANCHES: There is a 5.2 x 3.8 cm fusiform aneurysm of the distal descending thoracic aorta. There is a 3.3 x 2 .8 cm fusiform infrarenal abdominal aortic aneurysm. No aortic dissection is identified. There is mil d atherosclerosis of the celiac axis and superior mesenteric artery at their origins. Single renal ar teries are present. The inferior mesenteric artery is unremarkable. PELVIC VASCULATURE: There is calcified atherosclerosis without significant stenosis of the common iliac arteries. There i s calcified atherosclerosis and moderate stenosis of the bilateral external iliac arteries and mild s tenosis of the bilateral internal iliac arteries. RIGHT LOWER EXTREMITY VASCULATURE: There is calcified atherosclerosis with subsegmental areas of moderate stenosis in the superficial fe moral artery. The popliteal artery and tibioperoneal trunk demonstrate calcified atherosclerosis with out significant stenosis. There are areas of calcified atherosclerosis and mild stenosis in the anter ior tibial and posterior tibial arteries. The peroneal artery is unremarkable. There is a three-vesse l runoff at the ankle. LEFT LOWER EXTREMITY VASCULATURE: There is calcified atherosclerosis of the superficial femoral artery with a 10 cm occluded segment of the mid superficial femoral artery. The popliteal artery and tibial peroneal trunk demonstrate calci fied atherosclerosis without significant stenosis. There is a focal area of calcified atherosclerosis and mild stenosis in the anterior tibial artery. The posterior tibial artery and peroneal artery are unremarkable. There is a three-vessel runoff at the ankle. ADDITIONAL FINDINGS: There is a 1.8 cm cyst of the liver. The spleen, pancreas, and gallbladder are normal. There is chron ic mild nodularity of the adrenal glands. The kidneys are unremarkable. No pathologically enlarged ab dominal or pelvic lymph nodes are identified. There is no free intraperitoneal gas or evidence of bow el obstruction. There is moderate lumbar spondylosis. IMPRESSION: 1. Fusiform aneurysms of the distal descending thoracic aorta and infrarenal abdominal aorta. 2. Approximately 10 cm segment of occluded left superficial femoral artery with additional arterial d isease as detailed above. Reviewed, dictated and finalized at location A. NET AND TRIM INSTALLER IMPRESSION: 1. Fusiform aneurysms of the distal descending thoracic aorta and infrarenal ab dominal aorta. 2. Approximately 10 cm segment of occluded left superficial femoral artery with additional arterial disease as detailed above.
[2020-11-20 15:11] LABS: Estimated Glomerular Filt Rate > 60
== END 2020-11-20 14:09 | disposition home or self-care (01) ==
PROVIDERS: PCP Internal Medicine; Visit Provider Internal Medicine
DX: I73.9 Peripheral vascular disease, unspecified (principal); I71.4 Abdominal aortic aneurysm, without rupture; I77.1 Stricture of artery
CPT/HCPCS: 75635; Q9967

== ENCOUNTER 2020-12-15 | Emergency (ER) | payer MEDICARE, SELFPAY ==
--- NOTE | ~2020-12-15 | XR_ITS ---
EXAMINATION: XR chest 1V portable INDICATION: Shortness of breath TECHNIQUE: Portable AP chest at 0026 hours COMPARISON: 10/08/2020 FINDINGS: Again noted are changes of right partial pneumonectomy. The lungs are free of acute opaciti es. There is no pleural effusion or pneumothorax. The cardiomediastinal silhouette is normal. IMPRESSION: 1. No acute cardiopulmonary abnormality. Reviewed, dictated and finalized at location A. SHAPER
[2020-12-15 00:01] VITALS: BP 172/97; PULSE 103; RESP 24; TEMP 36.6; O2SAT 96
[2020-12-15 00:19] LABS: Basophils Percent Auto 0.5 % (0.2-1.2); Eosinophils Absolute Auto 0.1 K/mm3 (0-0.3); Eosinophils Percent Auto 0.7 % (0-4.4); Hematocrit 52.3 % (37.0-47.0); Hemoglobin 18.1 g/dL (12.0-15.0); Immature Granulocyte Absolute 0.02 K/mm3 (0.00-0.031); Immature Granulocyte Percent A 0.3 % (0-0.5); Lymphocytes Absolute Auto 1.38 K/mm3 (0.9-3.2); Lymphocytes Percent Auto 18.3 % (18.3-44.2); Mean Corpuscular HGB Conc 34.6 g/dl (32-36); Mean Corpuscular Hemoglobin 34.7 pg (26-34); Mean Corpuscular Volume 100.2 fl (80-100); Mean Platelet Volume 9.6 fl (7.4-10.4); Monocytes Absolute Auto 0.8 K/mm3 (0.1-0.6); Monocytes Percent Auto 10.4 % (2.6-8.5); Neutrophils Absolute Auto 5.3 K/mm3 (1.3-6.7); Neutrophils Percent Auto 69.8 % (45.5-73.1); Platelet Count Result 182 k/mm3 (150-375); Red Blood Count 5.22 M/mm3 (4.2-5.4); Red Cell Distribution Width 14.5 % (11.5-14.5); White Blood Count 7.5 K/mm3 (4.5-10.0)
[2020-12-15 00:35] LABS: Alanine Aminotransferase 16 U/L (4-35); Albumin Level 4.1 g/dL (3.5-5.1); Alkaline Phosphatase 102 U/L (38-126); Aspartate Amino Transferase 33 U/L (14-36); Bilirubin,Total 0.9 mg/dL (0.2-1.3); Blood Urea Nitrogen 14 mg/dL (7-17); Calcium 9.1 mg/dL (8.4-10.2); Carbon Dioxide > 40 mmol/L (22-30); Chloride 98 mmol/L (98-107); Estimated CRCL calculation 44 ml/min; Estimated Glomerular Filt Rate > 60; Glucose 99 mg/dL (65-105); Sodium 138 mmol/L (137-145)
[2020-12-15 00:40] LABS: Potassium 3.4 mmol/L (3.4-5.0)
--- NOTE | 2020-12-15 00:43 | ED.SOB ---
HPI - SOB/Dyspnea General Chief Complaint: Shortness of Breath/Dyspnea Stated Complaint: SOB Time Seen by Provider: 12/15/20 00:28 Source: patient Mode of arrival: ambulatory Limitations: no limitations and clinical condition History of Present Illness HPI Narrative: 75 years old white female presents with shortness of breath and swelling of the legs. Patient report edema of the lower extremities started February 2020, currently on Lasix 20 mg twice daily, patient also noticed shortness of breath mainly after eating intermittently for the last 2 to 3 months. Patient cardiology at [facility], scheduled to see him tomorrow. Patient requested a shot of Lasix because that is what she have every time when she come to our emergency room, also would like 1 tablet of Ativan because she ran out of it and currently feeling nervous Related Data Home Medications Medication Instructions Recorded Confirmed Spiriva with HandiHaler 1 cap INHALATION BID 02/05/20 06/23/20 albuterol sulfate 90 mcg INHALATION Q4-5H 02/05/20 06/23/20 alprazolam 0.5 mg PO TID PRN 02/05/20 06/23/20 montelukast 10 mg PO DAILY 02/05/20 06/23/20 aspirin [Adult Low Dose Aspirin] 81 mg PO DAILY 06/11/20 06/23/20 metoprolol succinate 12.5 mg PO BID 06/11/20 06/23/20 furosemide 20 mg PO DAILY 06/23/20 06/23/20 isosorbide mononitrate 15 mg PO DAILY 06/23/20 06/23/20 lisinopril 5 mg PO DAILY 06/23/20 06/23/20 Allergies Allergy/AdvReac Type Severity Reaction Status Date / Time atorvastatin Allergy Unknown leg cramps Verified 06/20/20 11:50 ezetimibe Allergy Unknown drowsiness Verified 06/20/20 11:50 fluticasone Allergy Unknown Asthma Verified 06/20/20 11:50 pravastatin Allergy Unknown leg cramps Verified 06/20/20 11:50 rosuvastatin Allergy Unknown muscle Verified 06/20/20 11:50 cramps salmeterol [Advair Diskus] Allergy Unknown Asthma Verified 06/20/20 11:50 Review of Systems Review of Systems: Narrative: CONSTITUTIONAL: Denies fever, chills, or sweats. EYES: Denies visual changes, redness, or discharge. ENT: Denies rhinorrhea, congestion, sore throat, or otalgia. CARDIOVASCULAR: Denies chest pain, palpitations, or edema. RESPIRATORY: Denies cough or dyspnea. GASTROINTESTINAL: Denies abdominal pain, nausea, vomiting, or diarrhea. GENITOURINARY: Denies dysuria or hematuria. SKIN: Denies rash or itching. MUSCULOSKELETAL: Denies back pain, joint pain, or myalgia. NEUROLOGIC: Denies headache, numbness, or weakness. PSYCHIATRIC: Denies anxiety or depression. [facility] Past Medical History Medical History AAA (abdominal aortic aneurysm) Anxiety COPD (chronic obstructive pulmonary disease) emphysema Depression Hypertension IBS (irritable bowel syndrome) Lung cancer Polycythemia Surgical History Surgical History History of appendectomy History of hysterectomy History of lobectomy of lung Social History Social History Smoking packs per day: 1 Smoking cigarettes per day: 20.0 Years smoked: 55 Smoking pack-years: 55.00 Smoking status: Current every day smoker Gender identity (if verbalized by the patient): Female Exam Narrative: Exam Narrative: General appearance: Well-developed, well-nourished Skin: Normal color, 2+ edema lower extremity up to the knee bilaterally Head: Normocephalic, nontraumatic Eyes: Clear conjunctiva ENT: Oropharynx normal, ears normal, nose normal Neck: Supple, nontender Chest and respiratory: Airway patent, no respiratory distress, no accessory muscle use, 3 L by nasal cannula on Heart: Irregular rhythm Abdomen: Soft, nontender, no organomegaly, quiet bowel sounds Vascular: Normal peripheral pulses, normal capillary refill. Musculoskeletal: Normal range of motion, nontender back Neurologic: Alert and oriented ?3, PHARMACY OPERATIONS SPECIALIST is normal as tested, no gross motor deficit
[2020-12-15 00:44] LABS: NT Pro B Type Natriuretic Pept 172 PG/ML (5-100)
[2020-12-15] MEDS: FUROSEMIDE INJ 40 MG/4 ML VIAL IV PUSH (01:02)
[2020-12-15] MEDS: LORazepam (*CRX) 0.5 MG TABLET PO (01:02)
[2020-12-15 01:07] VITALS: BP 139/84; PULSE 84; RESP 16; TEMP 36.7; O2SAT 96
[2020-12-15 01:29] VITALS: BP 139/84; PULSE 84; RESP 18; TEMP 36.7; O2SAT 96
== END 2020-12-15 01:29 | disposition home or self-care (01) ==
PROVIDERS: Emergency Provider Emergency Medicine; PCP Internal Medicine
DX: R60.0 Localized edema (principal); I50.9 Heart failure, unspecified; J44.9 Chronic obstructive pulmonary disease, unspecified; F32.9 Major depressive disorder, single episode, unspecified; F41.9 Anxiety disorder, unspecified; K58.9 Irritable bowel syndrome, unspecified; Z85.118 Personal history of other malignant neoplasm of bronchus and lung; Z90.2 Acquired absence of lung [part of]; F17.210 Nicotine dependence, cigarettes, uncomplicated
CPT/HCPCS: 36415; 71045; 80053; 83880; 85025; 96374; 99284; A9270; J1940

== ENCOUNTER 2020-12-17 04:04 | Emergency (ER) | payer MEDICARE, SELFPAY ==
--- NOTE | ~2020-12-17 | XR_ITS ---
EXAMINATION: XR chest 1V portable INDICATION: Shortness of breath TECHNIQUE: Portable AP chest at 0459 hours COMPARISON: 12/15/2020 FINDINGS: There are changes of right partial pneumonectomy with volume loss in the right hemithorax a nd elevation of the right hemidiaphragm. No acute airspace opacities are identified. The cardiomedias tinal silhouette is normal. There is no pleural effusion or pneumothorax. IMPRESSION: 1. No acute cardiopulmonary abnormality. Reviewed, dictated and finalized at location A. NAUTICAL RESEARCH ENGINEER
[2020-12-17 04:03] VITALS: PULSE 94; RESP 22; TEMP 36.5; O2SAT 99
--- NOTE | 2020-12-17 04:11 | ED.SOB ---
HPI - SOB/Dyspnea General Chief Complaint: Shortness of Breath/Dyspnea Stated Complaint: sob History of Present Illness HPI Narrative: 75 yo female w/ h/o COPD, CHF, CAD, anxiety presents to the ED for SOB. She is chronically SOB. On supplemental O2 at baseline. Became worse around 0600 today. Then she feels that she began to panic. Nebulizer treatment by EMS provided some relief. She does report increased LE swelling. No CP, fever. Related Data Home Medications Medication Instructions Recorded Confirmed Spiriva with HandiHaler 1 cap INHALATION BID 02/05/20 06/23/20 albuterol sulfate 90 mcg INHALATION Q4-5H 02/05/20 06/23/20 alprazolam 0.5 mg PO TID PRN 02/05/20 06/23/20 montelukast 10 mg PO DAILY 02/05/20 06/23/20 aspirin [Adult Low Dose Aspirin] 81 mg PO DAILY 06/11/20 06/23/20 metoprolol succinate 12.5 mg PO BID 06/11/20 06/23/20 furosemide 20 mg PO DAILY 06/23/20 06/23/20 isosorbide mononitrate 15 mg PO DAILY 06/23/20 06/23/20 lisinopril 5 mg PO DAILY 06/23/20 06/23/20 Allergies Allergy/AdvReac Type Severity Reaction Status Date / Time atorvastatin Allergy Unknown leg cramps Verified 12/17/20 04:14 ezetimibe Allergy Unknown drowsiness Verified 12/17/20 04:14 fluticasone Allergy Unknown Asthma Verified 12/17/20 04:14 pravastatin Allergy Unknown leg cramps Verified 12/17/20 04:14 rosuvastatin Allergy Unknown muscle Verified 12/17/20 04:14 cramps salmeterol [Advair Diskus] Allergy Unknown Asthma Verified 12/17/20 04:14 Review of Systems Review of Systems: All systems reviewed & are unremarkable except as noted in HPI and below Constitutional: Constitutional: Reports fatigue and Denies fever(s) ENT: Denies dizziness Cardiovascular: Cardiovascular: Denies chest pain Respiratory: Respiratory: Reports dyspnea and Reports wheezing Gastrointestinal: Gastrointestinal: Denies diarrhea and Denies nausea Genitourinary: Genitourinary: Denies hematuria and Denies dysuria Neurologic: Denies confusion and Reports weakness Psychiatric: Psychiatric: Reports anxiety PMFSH Past Medical History Medical History AAA (abdominal aortic aneurysm) Anxiety COPD (chronic obstructive pulmonary disease) emphysema Depression Hypertension IBS (irritable bowel syndrome) Lung cancer Polycythemia Surgical History Surgical History History of appendectomy History of hysterectomy History of lobectomy of lung Social History Social History Smoking packs per day: 1 Smoking cigarettes per day: 20.0 Years smoked: 55 Smoking pack-years: 55.00 Smoking status: Current every day smoker Gender identity (if verbalized by the patient): Female Exam Const: General: alert and ill appearing chronically Orientation/consciousness: patient oriented x3 Other: Mild distress HENMT: Head: normal to inspection Neck: Neck: normal visual inspection Chest: Chest palpation & inspection: normal inspection of the chest Resp: Effort & Inspection: tachypneic and uses accessory muscles Auscultation: wheezes throughout Cardio: Rate: regular rate Rhythm: regular rhythm Skin: General skin exam: normal color Neuro: General: patient oriented x3, moves all extremities, no focal motor deficits and CN's II-XI intact bilaterally Speech: normal speech Extrem: General: edema bilateral (2+) Course Vital Signs Vital signs: Vital Signs Temperature 36.5 C 12/17/20 04:03 Pulse Rate 94 12/17/20 04:03 Respiratory Rate 22 H 12/17/20 04:03 Pulse Oximetry 99 12/17/20 04:03 Temperature 36.5 C 12/17/20 04:03 Pulse Rate 100 12/17/20 06:15 Respiratory Rate 21 H 12/17/20 06:15 Blood Pressure 120/96 H 12/17/20 06:15 Pulse Oximetry 99 12/17/20 06:15 MDM - SOB/Dyspnea MDM Narrative Medical decision making narrative: After a breathing treame
[2020-12-17 04:12] VITALS: PULSE 88; O2SAT 97
--- NOTE | 2020-12-17 04:12 | ECG_ITS ---
Measurements Intervals [place] Rate: 89 P: 76 DE: 181 QRS: -29 QRSD: 138 T: 138 QT: 380 QTc: 464 Interpretive Statements SINUS RHYTHM POSSIBLE LEFT ATRIAL ENLARGEMENT LEFT BUNDLE BRANCH BLOCK ANTEROSEPTAL INFARCT OR DUE TO LBBB BASELINE ARTIFACT- I, II, III, AVR, AVL, AVF, V3-V6 ABNORMAL ECG Electronically Signed On 12-17-2020 7:12:55 ASSISTANT MEDIA PLANNER by Todd Sam D.O.
[2020-12-17] MEDS: methylPREDNISolone SOD SUCC 125 MG VIAL IV PUSH (04:19)
[2020-12-17 04:20] VITALS: PULSE 94; RESP 22
[2020-12-17] MEDS: ALBUTEROL SULFATE NEB 2.5 MG/0.5 ML INH 5 MG INHALATION (04:21)
[2020-12-17] MEDS: IPRATROPIUM BR 0.02% INH SOLN 0.5 MG/2.5 ML VIAL INHALATION (04:22)
[2020-12-17] MEDS: LORazepam INJ (*CRX) 2 MG/ML VIAL 0.5 MG IV PUSH (04:26)
--- NOTE | 2020-12-17 04:26 | PCRCNOTE ---
AT 04:24 pt is refusing ABG at this time. Said it hurts too bad. I explained the importance of the ABG pt she refusing.
--- NOTE | 2020-12-17 04:30 | PC.NURSE ---
Pt. refusing ABG. ERP notified.
[2020-12-17 04:35] VITALS: PULSE 88; RESP 21
[2020-12-17 04:45] LABS: Basophils Absolute Auto 0.1 K/mm3 (0.0-0.1); Basophils Percent Auto 0.8 % (0.2-1.2); Eosinophils Absolute Auto 0.1 K/mm3 (0-0.3); Eosinophils Percent Auto 1.1 % (0-4.4); Hematocrit 51.4 % (37.0-47.0); Hemoglobin 17.8 g/dL (12.0-15.0); Immature Granulocyte Absolute 0.02 K/mm3 (0.00-0.031); Immature Granulocyte Percent A 0.3 % (0-0.5); Lymphocytes Absolute Auto 1.55 K/mm3 (0.9-3.2); Lymphocytes Percent Auto 23.7 % (18.3-44.2); Mean Corpuscular HGB Conc 34.6 g/dl (32-36); Mean Corpuscular Hemoglobin 34.6 pg (26-34); Mean Platelet Volume 9.7 fl (7.4-10.4); Monocytes Absolute Auto 0.8 K/mm3 (0.1-0.6); Monocytes Percent Auto 11.8 % (2.6-8.5); Neutrophils Absolute Auto 4.1 K/mm3 (1.3-6.7); Neutrophils Percent Auto 62.3 % (45.5-73.1); Platelet Count Result 180 k/mm3 (150-375); Red Blood Count 5.14 M/mm3 (4.2-5.4); White Blood Count 6.6 K/mm3 (4.5-10.0)
[2020-12-17 04:56] LABS: INR 0.9; Prothrombin Time 13.2 Seconds (11.1-14.7)
[2020-12-17 04:57] LABS: Partial Thromboplastin Time 33.1 SECONDS (22.3-36.8)
[2020-12-17] MEDS: FUROSEMIDE INJ 40 MG/4 ML VIAL IV PUSH (04:57)
[2020-12-17 04:59] LABS: Alanine Aminotransferase 16 U/L (4-35); Alkaline Phosphatase 106 U/L (38-126); Anion Gap 5 mmol/L (8-16); Aspartate Amino Transferase 34 U/L (14-36); Bilirubin,Total 1.4 mg/dL (0.2-1.3); Blood Urea Nitrogen 9 mg/dL (7-17); Calcium 9.1 mg/dL (8.4-10.2); Carbon Dioxide 39 mmol/L (22-30); Chloride 91 mmol/L (98-107); Estimated Glomerular Filt Rate > 60; Glucose 100 mg/dL (65-105); Potassium 3.4 mmol/L (3.4-5.0); Sodium 135 mmol/L (137-145)
[2020-12-17 05:11] LABS: NT Pro B Type Natriuretic Pept 264 PG/ML (5-100); Troponin I 0.024 ng/mL (0.000-0.034)
[2020-12-17 05:13] VITALS: BP 169/87; PULSE 91; RESP 25; O2SAT 97
[2020-12-17 06:15] VITALS: BP 120/96; PULSE 100; RESP 21; O2SAT 99
== END 2020-12-17 06:20 | disposition home or self-care (01) ==
PROVIDERS: Emergency Provider Emergency Medicine; PCP Internal Medicine
DX: I11.0 Hypertensive heart disease with heart failure (principal); I50.9 Heart failure, unspecified; J44.9 Chronic obstructive pulmonary disease, unspecified; F41.9 Anxiety disorder, unspecified; I25.10 Atherosclerotic heart disease of native coronary artery without angina pectoris; K58.9 Irritable bowel syndrome, unspecified; D75.1 Secondary polycythemia; Z85.118 Personal history of other malignant neoplasm of bronchus and lung; Z90.2 Acquired absence of lung [part of]; F17.210 Nicotine dependence, cigarettes, uncomplicated; I44.7 Left bundle-branch block, unspecified; R94.31 Abnormal electrocardiogram [ECG] [EKG]
CPT/HCPCS: 36415; 71045; 80053; 83880; 84484; 85025; 85610; 85730; 93005; 94640; 96374; 96375; 99284; J1940; J2060; J2930

== ENCOUNTER 2021-01-23 00:44 | Emergency (ER) | payer MEDICARE, SELFPAY ==
[2021-01-23] VITALS (12 sets, daily range): BP systolic 137–175; BP diastolic 61–79; PULSE 67–85; RESP 14–22; TEMP 37; O2SAT 100
--- NOTE | ~2021-01-23 | CT_ITS ---
EXAMINATION: CT abdomen pelvis w con DATE: 01/23/2021 02:14 INDICATION: Abdominal pain TECHNIQUE: Computed tomography (CT) of the abdomen and pelvis was performed with 100 cc Omnipaque 350 intravenous contrast. Automated exposure control and iterative reconstruction technique were employe d. Exam dose: 530.22 mGy-cm total exam DLP. COMPARISON: 11/20/2020 CTA abdomen FINDINGS: Emphysematous changes are noted. There is scarring at the right lung base and elevation of the right leaf of the diaphragm. Normal heart size. No pericardial or pleural effusion. Distal descending thoracic aortic aneurysm and mild fusiform infrarenal abdominal aortic aneurysm or again noted. There is extensive calcification of the abdominal aorta and aortic branches. Approximately 1.8 cm hepatic cyst. The liver, gallbladder, bile ducts, pancreas and pancreatic duct a nd spleen are otherwise unremarkable. Approximately 1 cm left renal cyst. No intraperitoneal or retroperitoneal or pelvic mass lesion or adenopathy or ascites. The urinary bladder is unremarkable. Diverticulosis of the colon; no CT evidence of diverticulitis. No bowel obstruction, bowel wall thick ening, pneumatosis or intraperitoneal free air. Diffuse idiopathic skeletal hyperostosis of the thoracic spine. Moderate degenerative disc disease of lumbar and lumbosacral spine and prominent degenerative change at the apophyseal joints. IMPRESSION: Descending thoracic and abdominal aortic aneurysm again noted Emphysema 1.8 cm hepatic cyst 1 cm left renal cyst Diverticulosis of the colon Reviewed, dictated and finalized at Location A. Reviewed, dictated and finalized at location A.
--- NOTE | 2021-01-23 00:56 | ECG_ITS ---
Measurements Intervals [place] Rate: 74 P: 85 SD: 184 QRS: 21 QRSD: 146 T: 69 QT: 468 QTc: 520 Interpretive Statements SINUS RHYTHM POSSIBLE LEFT ATRIAL ENLARGEMENT LEFT BUNDLE BRANCH BLOCK ANTEROSEPTAL INFARCT OR DUE TO LBBB BASELINE ARTIFACT- I, II, III, AVR, AVL, AVF, V1-V5 ABNORMAL ECG Electronically Signed On 01-23-2021 6:41:20 CDT by Todd Sam D.O.
--- NOTE | 2021-01-23 01:07 | ED.GENADULT ---
HPI - General Adult General Chief complaint: Abdominal Pain Stated complaint: abd pain for months Time Seen by Provider: 01/23/21 00:49 History of Present Illness HPI narrative: Patient is a 75-year-old female presents to emergency department with chief complaint of epigastric discomfort and nausea. Patient reports she has history of gastric ulcers that she states were found on a colonoscopy. The patient states that she is on Protonix and has had continual nausea for months and that today she decided at 1:00 in the morning she could not handle it anymore and decided to come to the emergency department. Patient reports she was given Zofran by EMS and feels significantly better after receiving the dose of Zofran. Related Data Home Medications Medication Instructions Recorded Confirmed Spiriva with HandiHaler 1 cap INHALATION BID 02/05/20 06/23/20 albuterol sulfate 90 mcg INHALATION Q4-5H 02/05/20 06/23/20 alprazolam 0.5 mg PO TID PRN 02/05/20 06/23/20 montelukast 10 mg PO DAILY 02/05/20 06/23/20 aspirin [Adult Low Dose Aspirin] 81 mg PO DAILY 06/11/20 06/23/20 metoprolol succinate 12.5 mg PO BID 06/11/20 06/23/20 furosemide 20 mg PO DAILY 06/23/20 06/23/20 isosorbide mononitrate 15 mg PO DAILY 06/23/20 06/23/20 lisinopril 5 mg PO DAILY 06/23/20 06/23/20 Allergies Allergy/AdvReac Type Severity Reaction Status Date / Time atorvastatin Allergy Unknown leg cramps Verified 12/17/20 04:14 ezetimibe Allergy Unknown drowsiness Verified 12/17/20 04:14 fluticasone Allergy Unknown Asthma Verified 12/17/20 04:14 pravastatin Allergy Unknown leg cramps Verified 12/17/20 04:14 rosuvastatin Allergy Unknown muscle Verified 12/17/20 04:14 cramps salmeterol [Advair Diskus] Allergy Unknown Asthma Verified 12/17/20 04:14 Review of Systems Review of Systems: Narrative: A 10 system review of systems was completed on the patient and is negative except for what is stated in the HPI. Nursing and ancillary documentation was reviewed. [facility] Past Medical History Medical History AAA (abdominal aortic aneurysm) Anxiety COPD (chronic obstructive pulmonary disease) emphysema Depression Hypertension IBS (irritable bowel syndrome) Lung cancer Polycythemia Surgical History Surgical History History of appendectomy History of hysterectomy History of lobectomy of lung Social History Social History Smoking packs per day: 1 Smoking cigarettes per day: 20.0 Years smoked: 55 Smoking pack-years: 55.00 Smoking status: Current every day smoker Gender identity (if verbalized by the patient): Female Exam Narrative: Exam Narrative: GENERAL: Well-appearing, well-nourished, and in no acute distress. HEAD: Normocephalic, atraumatic. EYES: PERRLA and EOMI. ENT: Nares clear, no rhinorrhea or epistaxis. Mucous membranes moist. NECK: Supple. CHEST: Clear to auscultation. No respiratory distress. HEART: Regular rate and rhythm. No murmur heard. Normal peripheral pulses. ABDOMEN: Soft, nontender, nondistended, normal active bowel sounds. EXTREMITIES: Normal range of motion. No edema. SKIN: Warm, dry, no rash. NEURO: No focal deficits. Alert and oriented x3. PSYCH: Normal mood and affect. Course Vital Signs Vital signs: Vital Signs Pulse Rate 85 01/23/21 00:52 Respiratory Rate 18 01/23/21 00:52 Blood Pressure 175/79 H 01/23/21 00:52 Pulse Oximetry 100 01/23/21 00:52 Pulse Rate 81 01/23/21 02:31 Respiratory Rate 14 01/23/21 02:31 Blood Pressure 143/61 H 01/23/21 02:31 Pulse Oximetry 100 01/23/21 00:53 Medical Decision Making Vital Signs Vital Signs: Vital Signs Pulse Rate 85 01/23/21 00:52 Respiratory Rate 18 01/23/21 00:52 Blood Pressure 175/79 H 01/23/21 00:52 Pulse Oximetry 100 01/23/21 00:52
[2021-01-23 01:36] LABS: Basophils Percent Auto 0.3 % (0.2-1.2); Eosinophils Percent Auto 0.5 % (0-4.4); Hematocrit 44.4 % (37.0-47.0); Immature Granulocyte Absolute 0.02 K/mm3 (0.00-0.031); Immature Granulocyte Percent A 0.3 % (0-0.5); Lymphocytes Absolute Auto 1.15 K/mm3 (0.9-3.2); Lymphocytes Percent Auto 19.4 % (18.3-44.2); Mean Corpuscular Hemoglobin 34.1 pg (26-34); Mean Corpuscular Volume 94.7 fl (80-100); Mean Platelet Volume 9.7 fl (7.4-10.4); Monocytes Absolute Auto 0.6 K/mm3 (0.1-0.6); Monocytes Percent Auto 10.3 % (2.6-8.5); Neutrophils Absolute Auto 4.1 K/mm3 (1.3-6.7); Neutrophils Percent Auto 69.2 % (45.5-73.1); Platelet Count Result 193 k/mm3 (150-375); Red Blood Count 4.69 M/mm3 (4.2-5.4); White Blood Count 5.9 K/mm3 (4.5-10.0)
[2021-01-23] MEDS: ONDANSETRON INJ 4 MG/2 ML VIAL IV PUSH (01:39)
[2021-01-23] MEDS: SODIUM CHLORIDE 0.9% IV 1,000 ML 999 ML IV CONT (01:39)
[2021-01-23] MEDS: FAMOTIDINE 20 MG/2 ML VIAL IV PUSH (01:39)
[2021-01-23] MEDS: PANTOPRAZOLE SODIUM IV 40 MG VIAL IV PUSH (01:40)
[2021-01-23 01:42] LABS: INR 0.9; Prothrombin Time 12.5 Seconds (11.1-14.7)
[2021-01-23 01:43] LABS: Lactic Acid Reflex 1.3 mmol/L (0.7-2.1)
[2021-01-23 01:47] LABS: Alanine Aminotransferase 16 U/L (4-35); Albumin Level 3.6 g/dL (3.5-5.1); Alkaline Phosphatase 89 U/L (38-126); Aspartate Amino Transferase 34 U/L (14-36); Bilirubin,Total 0.9 mg/dL (0.2-1.3); Blood Urea Nitrogen 11 mg/dL (7-17); Calcium 8.8 mg/dL (8.4-10.2); Carbon Dioxide > 40 mmol/L (22-30); Chloride 78 mmol/L (98-107); Estimated CRCL calculation 59 ml/min; Estimated Glomerular Filt Rate > 60; Glucose 107 mg/dL (65-105); Lipase 110 U/L (23-300); Potassium 2.5 mmol/L (3.4-5.0); Sodium 128 mmol/L (137-145)
[2021-01-23 01:55] LABS: Troponin I 0.017 ng/mL (0.000-0.034)
[2021-01-23] MEDS: ALBUTEROL SULFATE (*SP) INHALER 2 PUFF INHALATION (02:14)
[2021-01-23] MEDS: POTASSIUM CHLORIDE 20 MEQ TABLET 40 MEQ PO (02:37)
[2021-01-23] MEDS: ONDANSETRON HCL ODT 4 MG TABLET PO (04:51)
== END 2021-01-23 05:00 | disposition home or self-care (01) ==
PROVIDERS: Emergency Provider Emergency Medicine; PCP Internal Medicine
DX: E87.6 Hypokalemia (principal); R11.2 Nausea with vomiting, unspecified; I10 Essential (primary) hypertension; J43.9 Emphysema, unspecified; K58.9 Irritable bowel syndrome, unspecified; D75.1 Secondary polycythemia; Z85.118 Personal history of other malignant neoplasm of bronchus and lung; Z90.2 Acquired absence of lung [part of]; F41.9 Anxiety disorder, unspecified; F32.9 Major depressive disorder, single episode, unspecified; F17.210 Nicotine dependence, cigarettes, uncomplicated; I44.7 Left bundle-branch block, unspecified; R94.31 Abnormal electrocardiogram [ECG] [EKG]; I71.4 Abdominal aortic aneurysm, without rupture; I71.2 Thoracic aortic aneurysm, without rupture; N28.1 Cyst of kidney, acquired; K76.89 Other specified diseases of liver; K57.90 Diverticulosis of intestine, part unspecified, without perforation or abscess without bleeding
CPT/HCPCS: 36415; 74177; 80053; 83605; 83690; 84484; 85025; 85610; 85730; 93005; 94640; 96361; 96365; 96366; 96375; 96376; 99284; A9270; C9113; J2405; J3480; J7030; J7060; Q9967

== ENCOUNTER 2021-02-25 17:13 | Emergency (ER) | payer MEDICARE, SELFPAY ==
--- NOTE | 2021-02-25 17:51 | ED.GENADULT ---
HPI - General Adult General Chief complaint: Epistaxis Stated complaint: nose bleed Source: patient Mode of arrival: ambulatory Limitations: no limitations History of Present Illness HPI narrative: Hetal is a pleasant 75F with a PMH of polycythemia, depression/anxiety, COPD, trigeminal neuralgia and a AAA that presented to the ER with a bloody nose. It started last night but then stopped. Later it started this morning. She has had a very dry nose with bloody clots in it lately. She has been shooting saline spray in to break it up. She has also not been using humidified oxygen. No trauma to the area reported. She is on asprin and plavix which were placed last May. Related Data Home Medications Medication Instructions Recorded Confirmed Spiriva with HandiHaler 1 cap INHALATION BID 02/05/20 06/23/20 albuterol sulfate 90 mcg INHALATION Q4-5H 02/05/20 06/23/20 alprazolam 0.5 mg PO TID PRN 02/05/20 06/23/20 aspirin [Adult Low Dose Aspirin] 81 mg PO DAILY 06/11/20 06/23/20 furosemide 20 mg PO DAILY 06/23/20 06/23/20 isosorbide mononitrate 15 mg PO DAILY 06/23/20 06/23/20 albuterol sulfate [ProAir HFA] 2 inh INHALATION Q4H PRN 02/25/21 02/25/21 clonidine HCl 0.1 mg PO HS 02/25/21 02/25/21 clopidogrel 75 mg PO DAILY 02/25/21 02/25/21 duloxetine 60 mg PO DAILY 02/25/21 02/25/21 guaifenesin 600 mg PO BID 02/25/21 02/25/21 ipratropium bromide 1.25 ml INHALATION TID 02/25/21 02/25/21 metolazone 2.5 mg PO EVERY OTHER DAY 02/25/21 02/25/21 pantoprazole 40 mg PO DAILY 02/25/21 02/25/21 rosuvastatin 20 mg PO DAILY 02/25/21 02/25/21 Allergies Allergy/AdvReac Type Severity Reaction Status Date / Time atorvastatin Allergy Unknown leg cramps Verified 02/25/21 18:03 ezetimibe Allergy Unknown drowsiness Verified 02/25/21 18:03 fluticasone Allergy Unknown Asthma Verified 02/25/21 18:03 pravastatin Allergy Unknown leg cramps Verified 02/25/21 18:03 rosuvastatin Allergy Unknown muscle Verified 02/25/21 18:03 cramps salmeterol [Advair Diskus] Allergy Unknown Asthma Verified 02/25/21 18:03 Review of Systems Constitutional: Constitutional: Reports no additional constitutional complaints, Denies chills and Denies fever(s) Eyes: Eyes: Reports no additional eye complaints ENT: Reports as per HPI Cardiovascular: Cardiovascular: Reports no additional cardiovascular complaints Respiratory: Respiratory: Reports no additional respiratory complaints Gastrointestinal: Gastrointestinal: Reports no additional gastrointestinal complaints Genitourinary: Genitourinary: Reports no additional female genitourinary complaints Musculoskeletal: Musculoskeletal: Reports no additional musculoskeletal complaints Integumentary/Breasts: Skin/Breast: Reports system reviewed and no additional complaints, except as docu Neurologic: Reports system reviewed and no additional complaints, except as documented Psychiatric: Psychiatric: Reports no additional psychiatric complaints Endocrine: Endocrine: Reports no additional endocrine complaints Hematologic/Lymphatic: Hematologic/Lymphatic: Reports no additional hematologic/lymphatic complaints Allergic/Immunologic: Allergic/Immunologic: Reports no additional allergic/immunologic complaints [facility] Past Medical History Medical History AAA (abdominal aortic aneurysm) Anxiety COPD (chronic obstructive pulmonary disease) emphysema Depression Hypertension IBS (irritable bowel syndrome) Lung cancer Polycythemia Surgical History Surgical History History of appendectomy History of hysterectomy History of lobectomy of lung Social History Social History Smoking packs per day: 1 Smoking cigarettes per day: 20.0 Years smoked: 55 Smoking pack-years: 55.00 Smoking status: Current every day smoker Gender identity (if verbalized by the patient):
[2021-02-25 17:52] VITALS: BP 123/63; PULSE 90; RESP 20; TEMP 36.7; O2SAT 99
[2021-02-25 18:51] VITALS: BP 128/65; PULSE 88; RESP 20; TEMP 36.8; O2SAT 98
== END 2021-02-25 18:53 | disposition home or self-care (01) ==
PROVIDERS: Emergency Provider Family Medicine; PCP Internal Medicine
DX: R04.0 Epistaxis (principal); J44.9 Chronic obstructive pulmonary disease, unspecified; I10 Essential (primary) hypertension; Z85.118 Personal history of other malignant neoplasm of bronchus and lung; F17.200 Nicotine dependence, unspecified, uncomplicated
CPT/HCPCS: 36415; 80048; 83880; 99282

== ENCOUNTER 2021-02-25 18:52 | Outpatient (CLI) | payer MEDICARE, SELFPAY ==
[2021-02-25 20:20] LABS: Anion Gap 1 mmol/L (8-16); Blood Urea Nitrogen 14 mg/dL (7-18); Calcium 9.8 mg/dL (8.5-10.1); Carbon Dioxide 43 mmol/L (21-32); Chloride 96 mmol/L (98-108); Estimated Glomerular Filt Rate 47; Glucose 112 mg/dL (70-99); NT Pro B Type Natriuretic Pept 251 pg/mL (0-450); Osmolality Calculated 291 mOsm/kg (285-295); Potassium 2.6 mmol/L (3.5-5.1); Sodium 140 mmol/L (136-145)
== END 2021-02-25 18:53 | disposition home or self-care (01) ==
LOC: CHSLAB 18:54
PROVIDERS: PCP Internal Medicine; Visit Provider Internal Medicine
DX: R79.89 Other specified abnormal findings of blood chemistry (principal); I51.9 Heart disease, unspecified; I50.9 Heart failure, unspecified
CPT/HCPCS: 36415; 80048; 83880

== ENCOUNTER 2021-04-18 10:09 | Outpatient (CLI) | payer MEDICARE, SELFPAY ==
--- NOTE | ~2021-04-18 | XR_ITS ---
XR chest 2V DATE: 04/18/2021 11:13 INDICATION: Shortness of breath. TECHNIQUE: PA and lateral views COMPARISON: December 17, 2020 portable AP chest FINDINGS: Status post partial right pneumonectomy. Normal heart size. There is aortic calcification and tortuosity. No hilar or mediastinal enlargement is evident. No pulmonary infiltrate or consolidation, pleural effusion or pulmonary vascular congestion or pneumo thorax is detected. Levoscoliosis and degenerative spurring of the thoracic spine. Osteopenia. IMPRESSION: Status post right partial pneumonectomy Aortic atherosclerosis No active cardiopulmonary disease or significant change since December 17, 2020 Reviewed, dictated and finalized at location A.
[2021-04-18 11:33] LABS: Basophils Percent Auto 0.7 % (0.2-1.2); Eosinophils Absolute Auto 0.1 K/mm3 (0-0.3); Eosinophils Percent Auto 1.3 % (0-4.4); Hemoglobin 13.3 g/dL (12.0-15.0); Immature Granulocyte Absolute 0.03 K/mm3 (0.00-0.031); Immature Granulocyte Percent A 0.5 % (0-0.5); Lymphocytes Absolute Auto 1.33 K/mm3 (0.9-3.2); Lymphocytes Percent Auto 21.7 % (18.3-44.2); Mean Corpuscular HGB Conc 34.1 g/dl (32-36); Mean Corpuscular Hemoglobin 32.3 pg (26-34); Mean Corpuscular Volume 94.7 fl (80-100); Mean Platelet Volume 9.5 fl (7.4-10.4); Monocytes Absolute Auto 0.7 K/mm3 (0.1-0.6); Monocytes Percent Auto 10.6 % (2.6-8.5); Neutrophils Percent Auto 65.2 % (45.5-73.1); Platelet Count Result 234 k/mm3 (150-375); Red Blood Count 4.12 M/mm3 (4.2-5.4); Red Cell Distribution Width 12.6 % (11.5-14.5); White Blood Count 6.1 K/mm3 (4.5-10.0)
[2021-04-18 11:52] LABS: Hemoglobin A1C 5.2 % (<5.7)
[2021-04-18 11:54] LABS: Alanine Aminotransferase 17 U/L (4-35); Albumin Level 3.8 g/dL (3.5-5.1); Alkaline Phosphatase 75 U/L (38-126); Anion Gap 6 mmol/L (8-16); Aspartate Amino Transferase 37 U/L (14-36); Bilirubin,Total 0.8 mg/dL (0.2-1.3); Blood Urea Nitrogen 14 mg/dL (7-17); Calcium 8.9 mg/dL (8.4-10.2); Carbon Dioxide 37 mmol/L (22-30); Chloride 86 mmol/L (98-107); Cholesterol 173 mg/dL (0-200); Estimated Glomerular Filt Rate > 60; Glucose 95 mg/dL (65-105); HDL Direct 59 mg/dL; Potassium 2.9 mmol/L (3.4-5.0); Sodium 129 mmol/L (137-145); Triglycerides 77 mg/dL (<150)
[2021-04-18 12:04] LABS: LDL Cholesterol Direct 78 mg/dL
[2021-04-18 12:55] LABS: Free T4 Free Thyroxine 1.32 ng/mL (0.78-2.19)
[2021-04-22 20:52] LABS: Insulin Level Total 3.5 uIU/mL (<=19.6)
[2021-04-24 19:57] LABS: Erythropoietin (EPO) 15.3 mIU/mL (2.6-18.5)
== END 2021-04-18 10:10 | disposition home or self-care (01) ==
LOC: ANHLAB 10:13
PROVIDERS: PCP Internal Medicine; Visit Provider Internal Medicine
DX: I50.20 Unspecified systolic (congestive) heart failure (principal); J44.9 Chronic obstructive pulmonary disease, unspecified; R53.83 Other fatigue; Z79.899 Other long term (current) drug therapy; R73.09 Other abnormal glucose; Z83.3 Family history of diabetes mellitus; E78.2 Mixed hyperlipidemia; D75.1 Secondary polycythemia; R09.02 Hypoxemia; F32.9 Major depressive disorder, single episode, unspecified; Z90.2 Acquired absence of lung [part of]; I70.0 Atherosclerosis of aorta
CPT/HCPCS: 36415; 71046; 80053; 80061; 82607; 82668; 82728; 82746; 83036; 83525; 84439; 85025

== ENCOUNTER 2021-04-20 13:01 | Outpatient (CLI) | payer MEDICARE, SELFPAY ==
--- NOTE | ~2021-04-20 | US_ITS ---
EXAMINATION: US venous doppler [facility] DATE: 04/20/2021 13:59 INDICATION: Bilateral lower limb swelling TECHNIQUE: Butler scale images without and with compression and Doppler images of the bilateral lower e xtremity veins were obtained. COMPARISON: 06/25/2020 FINDINGS: The right common femoral vein, profunda femoral vein, femoral vein, popliteal vein, peroneal trunk, p osterior tibial veins, and greater saphenous vein are patent. The left common femoral vein, profunda femoral vein, femoral vein, popliteal vein, peroneal trunk, po sterior tibial veins, and greater saphenous vein are patent. IMPRESSION: 1. Patent bilateral lower extremity veins. No evidence of deep venous thrombosis. Reviewed, dictated and finalized at location A. IMPRESSION: 1. Patent bilateral lower extremity veins. No evidence of deep venous thrombosi s.
== END 2021-04-20 13:02 | disposition home or self-care (01) ==
LOC: ANHIMG 13:03
PROVIDERS: PCP Internal Medicine; Visit Provider Internal Medicine
DX: R60.0 Localized edema (principal)
CPT/HCPCS: 93970

== ENCOUNTER 2021-04-25 03:30 | Inpatient (IN) | payer MEDICARE, SELFPAY ==
[2021-04-25] VITALS (21 sets, daily range): BP systolic 114–141; BP diastolic 52–74; PULSE 72–100; RESP 18–27; TEMP 36.3–36.8; O2SAT 92–100
--- NOTE | ~2021-04-25 | XR_ITS ---
XR chest 1V portable 04/25/2021 05:01 Indication: Shortness of breath Procedure: AP portable chest Comparison: Comparison to multiple prior studies sequentially, with oldest reviewed study dated 07/2020. Findings: Heart size normal. There is atherosclerosis and ectasia of the thoracic aorta. There are ch ronic surgical changes of the right lung. No acute focal pneumonia, edema or effusion. No significant change to mediastinal contour dating back to 10/08/2020. Impression: 1: No acute cardiopulmonary disease. Reviewed, dictated and finalized at location A. Impression: 1: No acute cardiopulmonary disease.
--- NOTE | ~2021-04-25 | XR_ITS ---
EXAMINATION: XR chest 1V portable DATE: 04/27/2021 06:22 INDICATION: Worsening shortness of breath TECHNIQUE: frontal view of the chest was obtained. COMPARISON: Chest radiograph dated 04/25/2021 FINDINGS: Again seen are postoperative change of prior partial right pneumonectomy with suture lines, volume lo ss and basilar pleural parenchymal scarring at the right hemithorax. Increased lucency and architectu ral distortion most prominent at the right lower and bilateral upper lung zones consistent with emphy sema. Small calcified nodule left upper lung zone consistent with old granulomatous disease. No other airspace opacities, pulmonary edema, pleural effusion or pneumothorax. Heart size is normal. Mild th oracic levocurvature with bridging osteophytes at multiple levels in the spine consistent with diffus e idiopathic skeletal hyperostosis (DISH). IMPRESSION: 1. Emphysema and postoperative changes of prior partial right pneumonectomy. No acute cardiopulmonary disease. Reviewed, dictated and finalized at location A.
--- NOTE | 2021-04-25 03:40 | ECG_ITS ---
Measurements Intervals [place] Rate: 66 P: [place]: 0 QRS: 2 QRSD: 129 T: 65 QT: 409 QTc: 431 Interpretive Statements SINUS RHYTHM LEFT BUNDLE BRANCH BLOCK BASELINE ARTIFACT- I, II, AVR, AVL, AVF, V3-V6 ABNORMAL ECG Electronically Signed On 04-25-2021 9:45:37 CDT by Todd Sam D.O.
--- NOTE | 2021-04-25 03:43 | ED.SOB ---
HPI - SOB/Dyspnea General Chief Complaint: Shortness of Breath/Dyspnea Stated Complaint: difficulty breathing since yesterday Time Seen by Provider: 04/25/21 03:32 History of Present Illness HPI Narrative: 75 yo female w/ h/o COPD presents to the ED for shortness of breath. SHe has chronic SOB which has been getting progressively worse for the past 2 days. She was started on antibiotics yesterday and has been using her rescue inhaler without relief. She does have chronic BLE edema. No fever chills, chest pain. Related Data Home Medications Medication Instructions Recorded Confirmed albuterol sulfate 90 mcg INHALATION Q4-5H PRN 02/05/20 04/20/21 alprazolam 0.5 mg PO TID PRN 02/05/20 04/20/21 aspirin [Adult Low Dose Aspirin] 81 mg PO DAILY 06/11/20 04/20/21 isosorbide mononitrate 60 mg PO DAILY 06/23/20 04/20/21 albuterol sulfate [ProAir HFA] 2 inh INHALATION Q4H PRN 02/25/21 04/20/21 clonidine HCl 0.1 mg PO HS 02/25/21 04/20/21 clopidogrel 75 mg PO DAILY 02/25/21 04/20/21 pantoprazole 40 mg PO DAILY 02/25/21 04/20/21 folic acid 800 mcg tablet 0.8 mg PO DAILY 04/20/21 04/20/21 furosemide 20 mg tablet 60 mg PO .bid qod tablet 04/20/21 04/20/21 mecobalamin (vitamin B12) 1,000 1,000 mcg SUBLINGUAL DAILY 04/20/21 04/20/21 mcg disintegrating tablet,sublingual nicotine 21 mg/24 hr daily 1 patch TRANSDERMAL DAILY 04/20/21 04/20/21 transdermal patch potassium chloride 20 mEq 40 meq PO BID tablet 04/20/21 04/20/21 tablet,extended release Allergies Allergy/AdvReac Type Severity Reaction Status Date / Time atorvastatin Allergy Unknown leg cramps Verified 04/25/21 03:53 ezetimibe Allergy Unknown drowsiness Verified 04/25/21 03:53 fluticasone Allergy Unknown Asthma Verified 04/25/21 03:53 pravastatin Allergy Unknown leg cramps Verified 04/25/21 03:53 rosuvastatin Allergy Unknown muscle Verified 04/25/21 03:53 cramps salmeterol [Advair Diskus] Allergy Unknown Asthma Verified 04/25/21 03:53 Review of Systems Review of Systems: All systems reviewed & are unremarkable except as noted in HPI and below Constitutional: Constitutional: Denies chills and Denies fever(s) Cardiovascular: Cardiovascular: Denies chest pain Respiratory: Respiratory: Reports cough, Reports dyspnea and Reports wheezing Gastrointestinal: Gastrointestinal: Denies abdominal pain and Denies nausea Neurologic: Denies dizziness and Denies weakness [facility] Past Medical History Medical History AAA (abdominal aortic aneurysm) Anxiety BMI 29.0-29.9,adult COPD (chronic obstructive pulmonary disease) emphysema Depression Edema Elevated glucose Encounter to establish care Family history of diabetes mellitus Fatigue Hypersomnia Hypertension Hypoxia 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 Lung cancer Mixed hyperlipidemia Obstructive sleep apnea On assisted drug therapy Polycythemia Systolic CHF Tobacco abuse Vitamin B12 deficiency Surgical History Surgical History History of appendectomy History of hysterectomy History of lobectomy of lung Social History Social History Smoking packs per day: 1 Smoking cigarettes per day: 20.0 Years smoked: 55 Smoking pack-years: 55.00 Smoking status: Current every day smoker Gender identity (if verbalized by the patient): Female Exam Const: General: alert and ill appearing Orientation/consciousness: patient oriented x3 Other: Mild distress HENMT: Head: normal to inspection Neck: Neck: normal visual inspection Resp: Effort & Inspection: labored and tachypneic Auscultation: wheezes and diminished lung sounds Cardio: Rate: regular rate Rhythm: regular rhythm GI: Inspection: non-distended GI Palp: No Soft to palpation and No Tenderness to palpation present (GI) Skin: General sk
[2021-04-25] MEDS: methylPREDNISolone SOD SUCC 125 MG VIAL IV PUSH (03:53)
[2021-04-25] MEDS: IPRATROPIUM BR 0.02% INH SOLN 0.5 MG/2.5 ML VIAL 1 MG INHALATION (03:56)
[2021-04-25] MEDS: ALBUTEROL SULFATE NEB 2.5 MG/0.5 ML INH 10 MG INHALATION (03:59)
[2021-04-25 04:09] LABS: Basophils Percent Auto 0.3 % (0.2-1.2); Eosinophils Absolute Auto 0.1 K/mm3 (0-0.3); Hematocrit 38.5 % (37.0-47.0); Hemoglobin 13.4 g/dL (12.0-15.0); Immature Granulocyte Absolute 0.04 K/mm3 (0.00-0.031); Immature Granulocyte Percent A 0.6 % (0-0.5); Lymphocytes Absolute Auto 1.06 K/mm3 (0.9-3.2); Lymphocytes Percent Auto 15.3 % (18.3-44.2); Mean Corpuscular HGB Conc 34.8 g/dl (32-36); Mean Corpuscular Hemoglobin 32.7 pg (26-34); Mean Corpuscular Volume 93.9 fl (80-100); Mean Platelet Volume 8.9 fl (7.4-10.4); Monocytes Absolute Auto 0.7 K/mm3 (0.1-0.6); Monocytes Percent Auto 10.5 % (2.6-8.5); Neutrophils Percent Auto 72.3 % (45.5-73.1); Platelet Count Result 229 k/mm3 (150-375); Red Cell Distribution Width 12.8 % (11.5-14.5); White Blood Count 6.9 K/mm3 (4.5-10.0)
--- NOTE | 2021-04-25 04:11 | PC.NURSE ---
Respiratory at bedside.
[2021-04-25 04:19] LABS: Anion Gap 8 mmol/L (8-16); Blood Urea Nitrogen 20 mg/dL (7-17); Calcium 9.3 mg/dL (8.4-10.2); Carbon Dioxide 36 mmol/L (22-30); Chloride 82 mmol/L (98-107); Estimated CRCL calculation 39 ml/min; Estimated Glomerular Filt Rate 48; Glucose 88 mg/dL (65-105); INR 0.9; Potassium 3.8 mmol/L (3.4-5.0); Prothrombin Time 12.9 Seconds (11.1-14.7); Sodium 126 mmol/L (137-145)
[2021-04-25 04:20] LABS: Partial Thromboplastin Time 32.7 SECONDS (22.3-36.8)
[2021-04-25 04:28] LABS: Alveolar/Arterial O2 Gradient 67.8 mmHg; Base Excess ABG 7.9 mEq/l (+/-2.0); Carboxyhemoglobin 3.9 % THb (0-2.0); Device NON-INVASIVE VENT; Fractional Inspired Oxygen 30 %; HCO3 ABG 33.4 mEq/l (22.0-26.0); Methemoglobin ABG 0.2 %THb (0-1.5); Modified Allen's Test Pass; Non-Invasive Expiratory Pressure 6 CMH2O; Non-Invasive Inspiratory Pressure 12 CMH2O; Non-Invasive Vent Rate 4 /MIN; Oxygen Content ABG 18.5 %vol (16.0-22.0); Oxygen Saturation ABG 96.9 % (95.0-100.0); Oxyhemoglobin 92.9 % THb (90.0-100.0); PCO2 ABG 49.7 mmHg (35.0-45.0); PO2 ABG 87.7 mmHg (80.0-100.0); PO2 FiO2 Ratio Arterial Blood 2.92 %; Site Drawn RIGHT RADIAL; Total Hemoglobin 14.1 g/dL (12.0-18.0); pH ABG 7.445 (7.350-7.450)
[2021-04-25 04:32] LABS: NT Pro B Type Natriuretic Pept 69 pg/mL (5-100); Troponin I < 0.012 ng/mL (0.000-0.034)
[2021-04-25] MEDS: diazePAM INJ (*CRX) 10 MG/2 ML SYRINGE 5 MG IV PUSH (06:08)
--- NOTE | 2021-04-25 06:59 | PC.NURSE ---
Attempted to give report to 3rd Med/Surg. Was informed that the receiving nurse was busy with a pt. Will call back.
--- NOTE | 2021-04-25 07:45 | ADMGEN ---
This patient, Hetal Stone, was admitted to [facility] Surg Room 303-01. Patient/family oriented to hospital policies and general routines including ID bracelet, bed and alarms, visiting hours, pain management, procedures, bathroom and other care routines, personal items, smoking policy, room service/diet, and visiting hours. Information on how to activate the Rapid Response Team has been discussed. Patient/Family are encouraged to report perceived risks to care and to ask questions if they do not understand what they are told or what they should do.
[2021-04-25 08:55] LABS: Magnesium 1.4 mg/dL (1.6-2.3)
[2021-04-25 09:07] LABS: Troponin I < 0.012 ng/mL (0.000-0.034)
[2021-04-25] MEDS: IPRATROPIUM BR 0.02% INH SOLN 0.5 MG/2.5 ML VIAL INHALATION ×3 (09:38→20:01)
[2021-04-25] MEDS: ALBUTEROL SULFATE NEB 2.5 MG/0.5 ML INH 5 MG INHALATION (09:39)
[2021-04-25] MEDS: FOLIC ACID 0.4 MG TABLET 0.8 MG PO (10:41)
[2021-04-25] MEDS: FUROSEMIDE 20 MG TABLET 60 MG PO ×2 (10:41→18:10)
[2021-04-25] MEDS: CLOPIDOGREL BISULFATE 75 MG TABLET PO (10:41)
[2021-04-25] MEDS: CYANOCOBALAMIN 1,000 MCG TABLET 1000 MCG PO (10:42)
[2021-04-25] MEDS: ASPIRIN 81 MG ENTERIC TABLET PO (10:42)
[2021-04-25] MEDS: SPIRONOLACTONE 50 MG TABLET PO ×2 (10:42→18:10)
[2021-04-25] MEDS: buPROPion HCL SR (12 HR) 150 MG TAB PO ×2 (12:26→21:18)
[2021-04-25] MEDS: methylPREDNISolone SOD SUCC 125 MG VIAL 60 MG IV PUSH (12:27)
[2021-04-25] MEDS: CYCLOBENZAPRINE HCL 5 MG TABLET PO ×2 (12:32→21:18)
--- NOTE | 2021-04-25 12:45 | PM.CNPUL ---
Assessment and Plan Assessment and plan (1) COPD exacerbation: Code(s): J44.1 - Chronic obstructive pulmonary disease with (acute) exacerbation Status: Acute Assessment and Plan: Patient with a history of COPD On home oxygen 2 L 24 hours a day, panlobular emphysema on her CT a from 06/23/2020. Patient also has a history of non-small cell lung cancer in 1987 status post right lobectomy. She is maintained on triple inhalers with breztri and PRN albuterol. Patient currently has a COPD exacerbation and she is improved and off BiPAP on Solu-Medrol 60 q.6h, inhaled budesonide 500 BID, and albuterol and ipratropium nebulizers. Patient has a change in her phlegm color and increased phlegm production along with shortness of breath and I will add azithromycin for COPD exacerbation with possible tracheobronchitis. patient still has wheezing but she has improved and I will decrease her Solu-Medrol to 40 Q 6 hours today, decrease albuterol dose to 2.5 mg q.6 hours. Patient wears 2 L nasal cannula at home and currently she is on 2 L cannula nasal cannula with saturations 94%. Patient has a blood gas on BiPAP 10/05 of 7.45/50/88 and she also has chronically elevated serum bicarbonate levels greater than 32 dating back to 07/25/2020. Patient does have chronic hypercarbic respiratory failure from her COPD and she would benefit from noninvasive ventilation at night. patient was placed on BiPAP and said she could not tolerate and would not wear BiPAP at home in the future. Diuresis per hospitalist. Patient with COPD exacerbation without complicating issues currently. Treat accordingly, as she improves change to oral prednisone, continue azithromycin for total 5 days and perform overnight oximetry on 2 L and home O2 assessment prior to discharge to determine oxygen needs. Will sign off, call with any questions. History of Present Illness History of Present Illness Consult date: 04/25/21 Reason for consult: COPD Chief complaint: COPD exacerbation Narrative: 75-year-old woman with a history of COPD for 10 years on 2 L oxygen 23/05 with moderate panlobular emphysema on CT scan 06/23/20, coronary artery disease status post stents, CHF who who presents with 2 days worsening cough, phlegm production and shortness of breath. Patient called her primary physician 1 day prior to admission and he prescribed an antibiotic. She does not know the name of this antibiotic. Patient continued to worsen and presented to the emergency department. Patient was in respiratory distress and placed on BiPAP and had a blood gas on BiPAP 12/630% with a pH of 7.45 / 50/88. Patient had a BNP of 69 and a negative troches. Patient had a chest x-ray with no active disease. Patient was started on Solu-Medrol, bronchodilators and admitted to the floor. 04/25 Patient is on 2 L nasal cannula and in no respiratory distress with saturations 94%. Patient states that she has improved cough, phlegm production but the same shit dyspnea on exertion. Patient states that she is 60-70% normal. Baseline patient states that she can walk 50 yd and then has dyspnea on exertion. Patient wears ox home oxygen 2 L nasal cannula 247, patient smoked tobacco 1 pack per day from age 19 to age 70 than half a pack a day for 2-3 years and she is now down to 1 cigarette a day. Patient is continue to try to quit. Patient denies any vaping, illicit drug use, sandblasting, welding, asbestos were, professional painting. 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 Patient was exposed to secondhand smoke from both parents. Patient's last hospitalization was January of 2021 but she has been in the emergency department multiple times with difficulty breathing. DATA: EXAMINATION: CTA chest PE protocol DATE: 06/23/2020 02:25 INDICATION: Lung cancer. Elevated d-dimer. TECHNIQUE: Computed tomography angiography (CTA) of the chest was performed with 100 mL Omnipaque-350 intravenous contrast timed to
[2021-04-25] MEDS: ALBUTEROL SULFATE NEB 2.5 MG/0.5 ML INH INHALATION ×2 (14:24→20:00)
--- NOTE | 2021-04-25 15:18 | PM.IMHP ---
H&P: HPI History of Present Illness Date/Time: 04/25/21 15:18 patient is 75-year-old female with chronic respiratory failure on home oxygen, history of COPD, history of a small cell carcinoma and unfortunately patient still smokes presented emergency department with complaint of cough shortness of breath and wheezing with exacerbation of COPD, emergency depart patient was started on Solu-Medrol and updraft, patient be seen physician office secretary and further recommendation to follow, patient also has history coronary artery disease her EKG abnormal concerning for atrial fibrillation we have consulted coin machine operator for further recommendation, patient left lower extremity with open sore and hyperemic concerning for cellulitics will continue to monitor patient once clinically stable will have a PT OT evaluate the patient. 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 Lung cancer Mixed hyperlipidemia Obstructive sleep apnea On custodial drug therapy Polycythemia Systolic CHF Tobacco abuse Vitamin B12 deficiency Surgical History Surgical History History of appendectomy History of hysterectomy History of lobectomy of lung Social History Social History Smoking packs per day: 0.5 Smoking cigarettes per day: 10.0 Years smoked: 55 Smoking pack-years: 27.50 Smoking status: Former smoker Tobacco type: cigarettes Second hand tobacco smoke exposure: No Alcohol intake: current Substance use: never Gender identity (if verbalized by the patient): Female Sexual Orientation (if Verbalized by the Patient): Straight or Heterosexual Spiritual care concerns: No Meds Home Medications and Allergies Home Medications Medication Instructions Recorded Confirmed Type aspirin [Adult Low Dose Aspirin] 81 mg PO DAILY 06/11/20 04/25/21 History albuterol sulfate [ProAir HFA] 2 inh INHALATION Q4H PRN 02/25/21 04/25/21 History clonidine HCl 0.1 mg PO HS 02/25/21 04/25/21 History clopidogrel 75 mg PO DAILY 02/25/21 04/25/21 History bupropion HCl 75 mg tablet 75 mg PO BID #60 tablet 04/20/21 04/25/21 Rx folic acid 800 mcg tablet 0.8 mg PO DAILY 04/20/21 04/25/21 History furosemide 20 mg tablet 60 mg PO BID tablet 04/20/21 04/25/21 History mecobalamin (vitamin B12) 1,000 1,000 mcg SUBLINGUAL DAILY 04/20/21 04/25/21 History mcg disintegrating tablet,sublingual nicotine 21 mg/24 hr daily 1 patch TRANSDERMAL DAILY 04/20/21 04/25/21 History transdermal patch potassium chloride 20 mEq 40 meq PO BID tablet 04/20/21 04/25/21 History tablet,extended release rosuvastatin 40 mg tablet 40 mg PO DAILY #90 tablet 04/20/21 04/25/21 Rx spironolactone 50 mg tablet 50 mg PO BID #180 tablet 04/20/21 04/25/21 Rx cefdinir 300 mg capsule 300 mg PO Q12H #20 cap 04/24/21 04/25/21 Rx losartan 100 mg tablet 100 mg PO DAILY #90 tablet 04/24/21 04/25/21 Rx [id number]-[id number] 2 inh INHALATION BID 04/25/21 04/25/21 History [[facility]] Allergies Allergy/AdvReac Type Severity Reaction Status Date / Time atorvastatin Allergy Unknown leg cramps Verified 04/25/21 07:59 ezetimibe Allergy Unknown drowsiness Verified 04/25/21 07:59 fluticasone Allergy Unknown Asthma Verified 04/25/21 07:59 pravastatin Allergy Unknown leg cramps Verified 04/25/21 07:59 rosuvastatin Allergy Unknown muscle Verifie
[2021-04-25] MEDS: methylPREDNISolone SOD SUCC 40 MG VIAL IV PUSH ×2 (18:10→23:02)
[2021-04-25] MEDS: NICOTINE (*PBKC) 7 MG PATCH 1 PATCH TRANSDERM (18:58)
[2021-04-25] MEDS: ONDANSETRON HCL ODT 4 MG TABLET PO (19:32)
[2021-04-25] MEDS: cloNIDine HCL 0.1 MG TABLET PO (21:18)
[2021-04-26] VITALS (13 sets, daily range): BP systolic 128–134; BP diastolic 58–63; PULSE 73–89; RESP 18–20; TEMP 36.2–36.6; O2SAT 91–100
--- NOTE | 2021-04-26 01:10 | PC.NURSE ---
patient complained of throbbing pain to neck, back and toes. Called [facility] around 23:00 and received no call back. Patient called nurses station 3+ times and I put out a call to Dr. Mendoza who ordered tylenol and a k-pad at this time
[2021-04-26] MEDS: ACETAMINOPHEN 325 MG TABLET 650 MG PO (01:13)
[2021-04-26] MEDS: ALBUTEROL SULFATE NEB 2.5 MG/0.5 ML INH INHALATION ×2 (01:58→19:35)
[2021-04-26] MEDS: IPRATROPIUM BR 0.02% INH SOLN 0.5 MG/2.5 ML VIAL INHALATION ×2 (01:58→19:36)
--- NOTE | 2021-04-26 02:56 | PC.NURSE ---
patient called nurses station to say she was panicking and that she couldn't catch her breath, patient visibly shaking but 02 sat was normal, patient clearly worked up and anxious, called Dr. Mendoza and she prescribed a one time dose of xanax to hopefully calm her down.
[2021-04-26] MEDS: ALPRAZolam (*CRX) 0.25 MG TABLET PO ×3 (03:01→16:10)
[2021-04-26] MEDS: methylPREDNISolone SOD SUCC 40 MG VIAL IV PUSH ×3 (06:07→18:01)
[2021-04-26] MEDS: CYCLOBENZAPRINE HCL 5 MG TABLET PO ×3 (06:07→21:01)
[2021-04-26 06:12] LABS: Hematocrit 36.3 % (37.0-47.0); Hemoglobin 13.1 g/dL (12.0-15.0); Mean Corpuscular HGB Conc 36.1 g/dl (32-36); Mean Corpuscular Hemoglobin 32.8 pg (26-34); Mean Corpuscular Volume 90.8 fl (80-100); Mean Platelet Volume 9.1 fl (7.4-10.4); Platelet Count Result 238 k/mm3 (150-375); Red Cell Distribution Width 12.1 % (11.5-14.5); White Blood Count 7.4 K/mm3 (4.5-10.0)
[2021-04-26 06:19] LABS: Anion Gap 9 mmol/L (8-16); Blood Urea Nitrogen 29 mg/dL (7-17); Calcium 9.1 mg/dL (8.4-10.2); Carbon Dioxide 37 mmol/L (22-30); Chloride 77 mmol/L (98-107); Estimated CRCL calculation 42 ml/min; Estimated Glomerular Filt Rate 54; Glucose 169 mg/dL (65-105); Magnesium 1.4 mg/dL (1.6-2.3); Potassium 2.9 mmol/L (3.4-5.0); Sodium 123 mmol/L (137-145)
[2021-04-26] MEDS: MAGNESIUM SULF 2 GM/WATER 50ML 2 GM/50 ML BAG IVPB (08:10)
[2021-04-26] MEDS: POTASSIUM CHLORIDE 20 MEQ TABLET 40 MEQ PO (08:15)
[2021-04-26] MEDS: SPIRONOLACTONE 50 MG TABLET PO ×2 (08:16→18:02)
[2021-04-26] MEDS: CLOPIDOGREL BISULFATE 75 MG TABLET PO (08:16)
[2021-04-26] MEDS: CYANOCOBALAMIN 1,000 MCG TABLET 1000 MCG PO (08:16)
[2021-04-26] MEDS: FUROSEMIDE 20 MG TABLET 60 MG PO ×2 (08:16→18:01)
[2021-04-26] MEDS: ASPIRIN 81 MG ENTERIC TABLET PO (08:16)
[2021-04-26] MEDS: FOLIC ACID 0.4 MG TABLET 0.8 MG PO (08:16)
[2021-04-26] MEDS: buPROPion HCL SR (12 HR) 150 MG TAB PO ×2 (08:16→21:01)
[2021-04-26] MEDS: NICOTINE (*PBKC) 7 MG PATCH 1 PATCH TRANSDERM (08:17)
[2021-04-26] MEDS: MAGNESIUM OXIDE 400 MG TABLET PO (08:21)
[2021-04-26] MEDS: guaiFENesin 12 HR 600 MG TABCR PO (08:21)
[2021-04-26] MEDS: BENZONATATE 100 MG CAPSULE 200 MG PO ×3 (08:21→18:01)
--- NOTE | 2021-04-26 10:18 | PCRCNOTE ---
Window of time for administration has passed. See next scheduled administration.
--- NOTE | 2021-04-26 11:27 | PM.IMPN ---
Progress Note: A&P Assessment and Plan (1) COPD exacerbation: Code(s): J44.1 - Chronic obstructive pulmonary disease with (acute) exacerbation Status: Acute Assessment and Plan: 04/26/21 11:27 04/25 patient is 75-year-old female with chronic respiratory failure on home oxygen, history of COPD, history of a small cell carcinoma and unfortunately patient still smokes presented emergency department with complaint of cough shortness of breath and wheezing with exacerbation of COPD, emergency depart patient was started on Solu-Medrol and updraft, patient be seen retail selling floor leader and further recommendation to follow, patient also has history coronary artery disease her EKG abnormal concerning for atrial fibrillation we have consulted production hardener for further recommendation, patient left lower extremity with open sore and hyperemic concerning for cellulitics will continue to monitor patient once clinically stable will have a PT OT evaluate the patient. 04/26 Patient with exacerbation of COPD being treated with Solu-Medrol updraft and azithromycin patient still complains of cough shortness of breath and wheezing denies any fever or chills, will CPM, patient be seen retail selling floor leader further recommendation to follow, patient with abnormal EKG suggesting atrial fibrillation discussed and reviewed the EKG with the cardiology did not suspect atrial fibrillation and no further workup is recommended, patient also complains difficulty breathing with left nostril chronic will give saline spray as will is Flonase, will consult ENT for further recommendation. (2) Edema: Qualifiers: Edema type: unspecified Qualified Code(s): R60.9 - Edema, unspecified Code(s): R60.9 - Edema, unspecified Status: Acute Assessment and Plan: patient appears euvolemic will continue to monitor (3) Tobacco abuse: Code(s): Z72.0 - Tobacco use Status: Acute Assessment and Plan: will start the patient on nicotine patch (4) Obstructive sleep apnea: Code(s): G47.33 - Obstructive sleep apnea (adult) (pediatric) Status: Acute Assessment and Plan: patient seen by retail selling floor leader and further recommendation to follow (5) Atrial fibrillation: Code(s): I48.91 - Unspecified atrial fibrillation Status: Acute Assessment and Plan: EKG showed atrial fibrillation will consult cardiology further recommendation, will do cardiac echo. Subjective Date/time seen: 04/26/21 11:27 04/25 patient is 75-year-old female with chronic respiratory failure on home oxygen, history of COPD, history of a small cell carcinoma and unfortunately patient still smokes presented emergency department with complaint of cough shortness of breath and wheezing with exacerbation of COPD, emergency depart patient was started on Solu-Medrol and updraft, patient be seen retail selling floor leader and further recommendation to follow, patient also has history coronary artery disease her EKG abnormal concerning for atrial fibrillation we have consulted production hardener for further recommendation, patient left lower extremity with open sore and hyperemic concerning for cellulitics will continue to monitor patient once clinically stable will have a PT OT evaluate the patient. 04/26 Patient with exacerbation of COPD being treated with Solu-Medrol updraft and azithromycin patient still complains of cough shortness of breath and wheezing denies any fever or chills, will CPM, patient be seen retail selling floor leader further recommendation to follow, patient with abnormal EKG suggesting atrial fibrillation discussed and reviewed the EKG with the cardiology did not suspect atrial fibrillation and no further workup is recommended, patient also complains difficulty breathing with left nostril chronic will give saline spray as will is Flonase, will consult ENT for further recommendation. Review of Systems Review of Systems: All systems reviewed & are unre
[2021-04-26 15:59] LABS: Anion Gap 10 mmol/L (8-16); Blood Urea Nitrogen 35 mg/dL (7-17); Calcium 9.2 mg/dL (8.4-10.2); Carbon Dioxide 37 mmol/L (22-30); Chloride 77 mmol/L (98-107); Estimated CRCL calculation 47 ml/min; Estimated Glomerular Filt Rate > 60; Glucose 198 mg/dL (65-105); Magnesium 1.8 mg/dL (1.6-2.3); Sodium 124 mmol/L (137-145)
[2021-04-26] MEDS: ONDANSETRON HCL ODT 4 MG TABLET PO (16:13)
[2021-04-26] MEDS: cloNIDine HCL 0.1 MG TABLET PO (21:00)
--- NOTE | 2021-04-26 21:02 | PC.NURSE ---
Patient called the desk and was screaming about how she was panicking. Walked in and patient SCREAMED that NOBODY IS HELPING ME and demanded xanax. I explained that her xanax is only every 8 hours and she cannot have it again until 00:00. She continued to yell and cry about how YOU ARE NOT LISTENING and swearing, telling me to shut up and that she was leaving. I offered to call her to help calm her down, and to get her AMA papers if that is the route she wants to go, and she continued to yell and cry. She took most of her 2100 meds (refused mucinex).. and I told her I would leave her alone to calm down. She was continually yelling bullshit and bullcrap into the hallway... Will allow her to calm down and then check on her. She is safe and in bed, has water and snacks at this time and in no physical distress.
[2021-04-27] VITALS (14 sets, daily range): BP systolic 104–147; BP diastolic 46–75; PULSE 65–101; RESP 18–24; TEMP 36.7–36.8; O2SAT 96–100
--- NOTE | 2021-04-27 | ECHO_ITS ---
Patient Info Name: Hetal Stone Age: 75 years : 1945 Gender: Female Ht: 63 in Wt: 169 lbs BSA: 1.87 m2 HR: 83 bpm BP: 128 / 60 mmHg Technical Quality: Fair Exam Date: 04/27/2021 8:12 AM Exam Location: [facility] Pulmonary Patient Status: Inpatient Admit Date: 04/25/2021 Staff Ordering Physician: Anjum Garcia MD [employer]: [employer] Attending Provider: oRsana Mendoza MD Exam Type: CA echo doppler color flow Study Info Indications R06.02 - Shortness of breath Complete two-dimensional, color flow and Doppler transthoracic echocardiogram is performed. Summary 1. Complete two-dimensional, color flow and Doppler transthoracic echocardiogram is performed. 2. Technically suboptimal study due to poor sonographic images. 3. Left ventricular chamber dimension is normal. 4. Left ventricular systolic function is hyperdynamic, estimated at >70%. 5. There is moderately increased left ventricular wall thickness. 6. Left ventricular septal wall motion is abnormal with septal motion related to bundle branch block. 7. The left ventricular diastolic function is grade I diastolic dysfunction. 8. E/e' 13 is mildly elevated. 9. There is mild aortic valve sclerosis. 10. No pulmonary hypertension, estimated pulmonary arterial systolic pressure is 34 mmHg. Left Ventricle E/e' 13 is mildly elevated. Technically suboptimal study due to poor sonographic images. Left ventricular chamber dimension is normal. Left ventricular systolic function is hyperdynamic, estimated at >70%. There is moderately increased left ventricular wall thickness. Left ventricular septal wall motion is abnormal with septal motion related to bundle branch block. The left ventricular diastolic function is grade I diastolic dysfunction. Right Ventricle Right ventricular systolic function is normal and with normal TAPSE 2.1 cm.. Right ventricular chamber dimension is normal. Left Atria Left atrial chamber dimension is normal. Right Atria Right atrial chamber dimension is normal. Aortic Valve The aortic valve is trileaflet. There is mild aortic valve sclerosis. There is no aortic valve stenosis. There is no aortic valve regurgitation. Pulmonic Valve There is no pulmonic regurgitation. Mitral Valve There is no mitral valve stenosis. There is no mitral valve regurgitation. Tricuspid Valve There is no tricuspid valve regurgitation. No pulmonary hypertension, estimated pulmonary arterial systolic pressure is 34 mmHg. Pericardium/Pleural There is no pericardial effusion. Inferior Vena Cava Normal inferior vena cava with >50% collapse upon inspiration consistent with normal right atrial pressure, 5 mmHg. Aorta The aortic root size at the sinus of Valsalva is normal. Left Ventricular Outflow Tract Name Value Normal LVOT 2D LVOT Diameter 1.6 cm LVOT Doppler LVOT Peak Velocity 149 cm/s LVOT Peak Gradient 9 mmHg LVOT Mean Gradient 5 mmHg LVOT VTI 30 cm LVOT VTI/AV VTI Ratio 0.9
[2021-04-27] MEDS: methylPREDNISolone SOD SUCC 40 MG VIAL IV PUSH ×2 (00:29→06:12)
[2021-04-27] MEDS: ALPRAZolam (*CRX) 0.25 MG TABLET PO ×2 (00:29→09:03)
--- NOTE | 2021-04-27 01:43 | PC.NURSE ---
Patient called for her xanax around 00:30, audibly mumbling they are fine with me dying in here etc.. I went into give her the medication shortly and she was visibly angry stating if you only knew how to read I would have my medication on time .. She was in no physical distress at this time so I left her to calm down and will continue to check in.
[2021-04-27] MEDS: ALBUTEROL SULFATE NEB 2.5 MG/0.5 ML INH INHALATION ×4 (01:54→20:47)
[2021-04-27] MEDS: IPRATROPIUM BR 0.02% INH SOLN 0.5 MG/2.5 ML VIAL INHALATION ×4 (01:55→20:47)
--- NOTE | 2021-04-27 06:06 | PC.NURSE ---
patient stated that she couldn't catch her breath this morning, 02 sat 98% on 3L. Called Dr. Mendoza and she ordered a stat ABG and chest xray to rule out further c02 retention
[2021-04-27 06:09] LABS: Hematocrit 37.9 % (37.0-47.0); Hemoglobin 13.5 g/dL (12.0-15.0); Mean Corpuscular HGB Conc 35.6 g/dl (32-36); Mean Corpuscular Hemoglobin 32.5 pg (26-34); Mean Corpuscular Volume 91.1 fl (80-100); Platelet Count Result 261 k/mm3 (150-375); Red Blood Count 4.16 M/mm3 (4.2-5.4); Red Cell Distribution Width 12.2 % (11.5-14.5); White Blood Count 8.9 K/mm3 (4.5-10.0)
[2021-04-27] MEDS: CYCLOBENZAPRINE HCL 5 MG TABLET PO ×3 (06:12→21:14)
[2021-04-27 06:30] LABS: Blood Urea Nitrogen 42 mg/dL (7-17); Calcium 8.6 mg/dL (8.4-10.2); Carbon Dioxide > 40 mmol/L (22-30); Chloride 76 mmol/L (98-107); Estimated CRCL calculation 47 ml/min; Estimated Glomerular Filt Rate > 60; Glucose 138 mg/dL (65-105); Potassium 3.7 mmol/L (3.4-5.0); Sodium 124 mmol/L (137-145)
[2021-04-27] MEDS: buPROPion HCL SR (12 HR) 150 MG TAB PO ×2 (09:03→20:16)
[2021-04-27] MEDS: guaiFENesin 12 HR 600 MG TABCR PO ×2 (09:03→20:16)
[2021-04-27] MEDS: FUROSEMIDE 20 MG TABLET 60 MG PO ×2 (09:03→16:20)
[2021-04-27] MEDS: ONDANSETRON HCL ODT 4 MG TABLET PO (09:03)
[2021-04-27] MEDS: BENZONATATE 100 MG CAPSULE 200 MG PO ×3 (09:03→16:20)
[2021-04-27] MEDS: MAGNESIUM OXIDE 400 MG TABLET PO (09:04)
[2021-04-27] MEDS: FOLIC ACID 0.4 MG TABLET 0.8 MG PO (09:04)
[2021-04-27] MEDS: CLOPIDOGREL BISULFATE 75 MG TABLET PO (09:04)
[2021-04-27] MEDS: ASPIRIN 81 MG ENTERIC TABLET PO (09:04)
[2021-04-27] MEDS: CYANOCOBALAMIN 1,000 MCG TABLET 1000 MCG PO (09:04)
[2021-04-27] MEDS: SPIRONOLACTONE 50 MG TABLET PO ×2 (09:04→16:20)
[2021-04-27] MEDS: NICOTINE (*PBKC) 7 MG PATCH 1 PATCH TRANSDERM (09:05)
[2021-04-27] MEDS: ROSUVASTATIN 10 MG TABLET 40 MG PO (09:05)
--- NOTE | 2021-04-27 11:49 | PM.IMPN ---
Progress Note: A&P Assessment and Plan (1) COPD exacerbation: Code(s): J44.1 - Chronic obstructive pulmonary disease with (acute) exacerbation Status: Acute Assessment and Plan: 04/27/21 11:49 04/25 patient is 75-year-old female with chronic respiratory failure on home oxygen, history of COPD, history of a small cell carcinoma and unfortunately patient still smokes presented emergency department with complaint of cough shortness of breath and wheezing with exacerbation of COPD, emergency depart patient was started on Solu-Medrol and updraft, patient be seen peanut farmer and further recommendation to follow, patient also has history coronary artery disease her EKG abnormal concerning for atrial fibrillation we have consulted sports health club membership advisors for further recommendation, patient left lower extremity with open sore and hyperemic concerning for cellulitics will continue to monitor patient once clinically stable will have a PT OT evaluate the patient. 04/26 Patient with exacerbation of COPD being treated with Solu-Medrol updraft and azithromycin patient still complains of cough shortness of breath and wheezing denies any fever or chills, will CPM, patient be seen peanut farmer further recommendation to follow, patient with abnormal EKG suggesting atrial fibrillation discussed and reviewed the EKG with the cardiology did not suspect atrial fibrillation and no further workup is recommended, patient also complains difficulty breathing with left nostril chronic will give saline spray as will is Flonase, will consult ENT for further recommendation. 04/27 Today patient states see history of anxiety is getting worse in the hospital, patient takes and 0.5 mg every 6 hours at home as needed patient has been given every 8 hours in the hospital will go ahead switch over to Xanax 0.5 mg every 6 hours as needed, patient breathing is improved will go end taper Solu-Medrol to prednisone 50 mg q.day, will continue to monitor patient, the PT OT evaluate the patient, will reassess tomorrow and possibly discharge the patient. upon arrival there was a concern of abnormal EKG which I reviewed with cardiology he does not suspect any cardiac pathology however cardiac echo has been ordered and is pending will follow-up. (2) Edema: Qualifiers: Edema type: unspecified Qualified Code(s): R60.9 - Edema, unspecified Code(s): R60.9 - Edema, unspecified Status: Acute Assessment and Plan: patient appears euvolemic will continue to monitor (3) Tobacco abuse: Code(s): Z72.0 - Tobacco use Status: Acute Assessment and Plan: will start the patient on nicotine patch (4) Obstructive sleep apnea: Code(s): G47.33 - Obstructive sleep apnea (adult) (pediatric) Status: Acute Assessment and Plan: patient seen by peanut farmer and further recommendation to follow (5) Atrial fibrillation: Code(s): I48.91 - Unspecified atrial fibrillation Status: Acute Assessment and Plan: EKG showed atrial fibrillation will consult cardiology further recommendation, will do cardiac echo. Subjective Date/time seen: 04/27/21 11:49 04/25 patient is 75-year-old female with chronic respiratory failure on home oxygen, history of COPD, history of a small cell carcinoma and unfortunately patient still smokes presented emergency department with complaint of cough shortness of breath and wheezing with exacerbation of COPD, emergency depart patient was started on Solu-Medrol and updraft, patient be seen peanut farmer and further recommendation to follow, patient also has history coronary artery disease her EKG abnormal concerning for atrial fibrillation we have consulted sports health club membership advisors for further recommendation, patient left lower extremity with open sore and hyperemic concerning for cellulitics will continue to monitor patient once clinically stable will have a PT OT evaluate the patient. 04/26 Patient with
[2021-04-27] MEDS: ALPRAZolam (*CRX) 0.5 MG TABLET PO ×2 (14:52→20:17)
[2021-04-27] MEDS: cloNIDine HCL 0.1 MG TABLET PO (20:16)
[2021-04-28] VITALS (17 sets, daily range): BP systolic 105–130; BP diastolic 52–79; PULSE 64–96; RESP 18–24; TEMP 36.1–36.8; O2SAT 93–100
[2021-04-28] MEDS: ALPRAZolam (*CRX) 0.5 MG TABLET PO ×3 (02:14→18:35)
[2021-04-28] MEDS: CYCLOBENZAPRINE HCL 5 MG TABLET PO ×3 (05:18→23:04)
[2021-04-28 06:26] LABS: Hematocrit 39.9 % (37.0-47.0); Hemoglobin 13.7 g/dL (12.0-15.0); Mean Corpuscular HGB Conc 34.3 g/dl (32-36); Mean Corpuscular Hemoglobin 32.3 pg (26-34); Mean Corpuscular Volume 94.1 fl (80-100); Mean Platelet Volume 8.9 fl (7.4-10.4); Platelet Count Result 253 k/mm3 (150-375); Red Blood Count 4.24 M/mm3 (4.2-5.4); Red Cell Distribution Width 12.6 % (11.5-14.5); White Blood Count 8.9 K/mm3 (4.5-10.0)
[2021-04-28 06:50] LABS: Blood Urea Nitrogen 47 mg/dL (7-17); Calcium 8.8 mg/dL (8.4-10.2); Carbon Dioxide > 40 mmol/L (22-30); Chloride 78 mmol/L (98-107); Estimated CRCL calculation 42 ml/min; Estimated Glomerular Filt Rate 54; Glucose 98 mg/dL (65-105); Magnesium 2.1 mg/dL (1.6-2.3); Potassium 2.7 mmol/L (3.4-5.0); Sodium 125 mmol/L (137-145)
--- NOTE | 2021-04-28 07:32 | P.CDI_ITS ---
CDI Query Clarification Request - patient left lower extremity with open sore and hyperemic concerning for cellulitis has been documented. -Pt is on Azithromycin and Ceftriaxone -Coders cannot code concerning for as a diagnosis. Please clarify if cellulitis has been: * Ruled in/possible * Ruled out * Unable to determine
--- NOTE | 2021-04-28 08:06 | PM.IMPN ---
Progress Note: A&P Assessment and Plan (1) COPD exacerbation: Code(s): J44.1 - Chronic obstructive pulmonary disease with (acute) exacerbation Status: Acute Assessment and Plan: 04/27/21 11:49 04/25 patient is 75-year-old female with chronic respiratory failure on home oxygen, history of COPD, history of a small cell carcinoma and unfortunately patient still smokes presented emergency department with complaint of cough shortness of breath and wheezing with exacerbation of COPD, emergency depart patient was started on Solu-Medrol and updraft, patient be seen nursing support worker and further recommendation to follow, patient also has history coronary artery disease her EKG abnormal concerning for atrial fibrillation we have consulted offbearer sewer pipe for further recommendation, patient left lower extremity with open sore and hyperemic concerning for cellulitics will continue to monitor patient once clinically stable will have a PT OT evaluate the patient. 04/26 Patient with exacerbation of COPD being treated with Solu-Medrol updraft and azithromycin patient still complains of cough shortness of breath and wheezing denies any fever or chills, will CPM, patient be seen nursing support worker further recommendation to follow, patient with abnormal EKG suggesting atrial fibrillation discussed and reviewed the EKG with the cardiology did not suspect atrial fibrillation and no further workup is recommended, patient also complains difficulty breathing with left nostril chronic will give saline spray as will is Flonase, will consult ENT for further recommendation. 04/27 Today patient states see history of anxiety is getting worse in the hospital, patient takes and 0.5 mg every 6 hours at home as needed patient has been given every 8 hours in the hospital will go ahead switch over to Xanax 0.5 mg every 6 hours as needed, patient breathing is improved will go end taper Solu-Medrol to prednisone 50 mg q.day, will continue to monitor patient, the PT OT evaluate the patient, will reassess tomorrow and possibly discharge the patient. upon arrival there was a concern of abnormal EKG which I reviewed with cardiology he does not suspect any cardiac pathology however cardiac echo has been ordered and is pending will follow-up. 04/28: patient feeling better on prednisone 50 mg daily which will continue she will hypokalemic today will replace and recheck and monitor . magnesium is normal. chronic hyponatremia which is stable. Continue inhaler. Alprazolam p.r.n. for anxiety vital signs stable continue diuretics. Chronic hypercapnic respiratory failure with compensated metabolic alkalosis. Continue azithromycin day 4 today continue ceftriaxone. Recheck labs in the morning . Reviewed echo (2) Edema: Qualifiers: Edema type: unspecified Qualified Code(s): R60.9 - Edema, unspecified Code(s): R60.9 - Edema, unspecified Status: Acute Assessment and Plan: patient appears euvolemic will continue to monitor (3) Tobacco abuse: Code(s): Z72.0 - Tobacco use Status: Acute Assessment and Plan: will start the patient on nicotine patch (4) Obstructive sleep apnea: Code(s): G47.33 - Obstructive sleep apnea (adult) (pediatric) Status: Acute Assessment and Plan: patient seen by nursing support worker and further recommendation to follow (5) Atrial fibrillation: Code(s): I48.91 - Unspecified atrial fibrillation Status: Acute Assessment and Plan: EKG showed atrial fibrillation will consult cardiology further recommendation, will do cardiac echo. Additional Plan 04/28: Labs today with severe hypokalemia being replaced. Recheck potassium in the evening and replace as needed. Hyponatremia chronic stable Metabolic alkalosis from chronic respiratory failure Chest x-ray with emphysema and postoperative changes at the prior partial right pneumonectomy with no acute cardiopulmonary disease done on 04/27/2021
[2021-04-28] MEDS: ROSUVASTATIN 10 MG TABLET 40 MG PO (08:17)
[2021-04-28] MEDS: MAGNESIUM OXIDE 400 MG TABLET PO (08:17)
[2021-04-28] MEDS: FUROSEMIDE 20 MG TABLET 60 MG PO ×2 (08:18→18:37)
[2021-04-28] MEDS: CLOPIDOGREL BISULFATE 75 MG TABLET PO (08:18)
[2021-04-28] MEDS: FOLIC ACID 0.4 MG TABLET 0.8 MG PO (08:18)
[2021-04-28] MEDS: buPROPion HCL SR (12 HR) 150 MG TAB PO ×2 (08:18→21:03)
[2021-04-28] MEDS: guaiFENesin 12 HR 600 MG TABCR PO ×2 (08:18→21:03)
[2021-04-28] MEDS: SPIRONOLACTONE 50 MG TABLET PO ×2 (08:18→18:36)
[2021-04-28] MEDS: ASPIRIN 81 MG ENTERIC TABLET PO (08:18)
[2021-04-28] MEDS: CYANOCOBALAMIN 1,000 MCG TABLET 1000 MCG PO (08:19)
[2021-04-28] MEDS: predniSONE 40 MG, predniSONE 10 MG 50 MG PO (08:19)
[2021-04-28] MEDS: BENZONATATE 100 MG CAPSULE 200 MG PO ×3 (08:20→18:36)
[2021-04-28] MEDS: NICOTINE (*PBKC) 7 MG PATCH 1 PATCH TRANSDERM (08:20)
[2021-04-28] MEDS: ALBUTEROL SULFATE NEB 2.5 MG/0.5 ML INH INHALATION ×3 (08:58→19:40)
[2021-04-28] MEDS: IPRATROPIUM BR 0.02% INH SOLN 0.5 MG/2.5 ML VIAL INHALATION ×3 (08:58→19:40)
[2021-04-28] MEDS: POTASSIUM CHLORIDE 20 MEQ TABLET 40 MEQ PO (16:40)
[2021-04-28 19:01] LABS: Potassium 3.7 mmol/L (3.4-5.0)
[2021-04-28] MEDS: ONDANSETRON HCL ODT 4 MG TABLET PO (20:06)
[2021-04-28] MEDS: cloNIDine HCL 0.1 MG TABLET PO (21:03)
[2021-04-29] VITALS (14 sets, daily range): BP systolic 124–148; BP diastolic 61–71; PULSE 77–103; RESP 16–22; TEMP 36.4–36.9; O2SAT 94–100
[2021-04-29] MEDS: ALPRAZolam (*CRX) 0.5 MG TABLET PO ×2 (00:53→08:58)
[2021-04-29] MEDS: ALBUTEROL SULFATE NEB 2.5 MG/0.5 ML INH INHALATION ×4 (02:23→19:34)
[2021-04-29] MEDS: IPRATROPIUM BR 0.02% INH SOLN 0.5 MG/2.5 ML VIAL INHALATION ×4 (02:24→19:34)
[2021-04-29] MEDS: CYCLOBENZAPRINE HCL 5 MG TABLET PO ×3 (05:42→21:01)
[2021-04-29 06:19] LABS: Basophils Percent Auto 0.1 % (0.2-1.2); Eosinophils Percent Auto 0.1 % (0-4.4); Hematocrit 40.4 % (37.0-47.0); Hemoglobin 14.3 g/dL (12.0-15.0); Immature Granulocyte Absolute 0.05 K/mm3 (0.00-0.031); Immature Granulocyte Percent A 0.6 % (0-0.5); Lymphocytes Absolute Auto 1.52 K/mm3 (0.9-3.2); Lymphocytes Percent Auto 18.6 % (18.3-44.2); Mean Corpuscular HGB Conc 35.4 g/dl (32-36); Mean Corpuscular Hemoglobin 32.5 pg (26-34); Mean Corpuscular Volume 91.8 fl (80-100); Mean Platelet Volume 8.8 fl (7.4-10.4); Monocytes Absolute Auto 0.6 K/mm3 (0.1-0.6); Monocytes Percent Auto 7.3 % (2.6-8.5); Neutrophils Percent Auto 73.3 % (45.5-73.1); Platelet Count Result 269 k/mm3 (150-375); Red Cell Distribution Width 12.2 % (11.5-14.5); White Blood Count 8.2 K/mm3 (4.5-10.0)
[2021-04-29 06:47] LABS: Alanine Aminotransferase 24 U/L (4-35); Alkaline Phosphatase 66 U/L (38-126); Aspartate Amino Transferase 36 U/L (14-36); Bilirubin,Total 0.3 mg/dL (0.2-1.3); Blood Urea Nitrogen 45 mg/dL (7-17); Calcium 8.8 mg/dL (8.4-10.2); Carbon Dioxide > 40 mmol/L (22-30); Chloride 80 mmol/L (98-107); Estimated CRCL calculation 42 ml/min; Estimated Glomerular Filt Rate 54; Glucose 134 mg/dL (65-105); Potassium 2.6 mmol/L (3.4-5.0); Sodium 129 mmol/L (137-145)
[2021-04-29] MEDS: POTASSIUM CHLORIDE 20 MEQ TABLET 80 MEQ PO (08:46)
[2021-04-29] MEDS: NICOTINE (*PBKC) 7 MG PATCH 1 PATCH TRANSDERM (08:46)
[2021-04-29] MEDS: ROSUVASTATIN 10 MG TABLET 40 MG PO (08:47)
[2021-04-29] MEDS: ASPIRIN 81 MG ENTERIC TABLET PO (08:49)
[2021-04-29] MEDS: predniSONE 40 MG, predniSONE 10 MG 50 MG PO (08:49)
[2021-04-29] MEDS: buPROPion HCL SR (12 HR) 150 MG TAB PO ×2 (08:49→21:01)
[2021-04-29] MEDS: CLOPIDOGREL BISULFATE 75 MG TABLET PO (08:50)
[2021-04-29] MEDS: SPIRONOLACTONE 50 MG TABLET PO ×2 (08:50→17:07)
[2021-04-29] MEDS: guaiFENesin 12 HR 600 MG TABCR PO ×2 (08:50→21:01)
[2021-04-29] MEDS: MAGNESIUM OXIDE 400 MG TABLET PO (08:50)
[2021-04-29] MEDS: FOLIC ACID 0.4 MG TABLET 0.8 MG PO (08:50)
[2021-04-29] MEDS: CYANOCOBALAMIN 1,000 MCG TABLET 1000 MCG PO (08:50)
[2021-04-29] MEDS: FUROSEMIDE 20 MG TABLET 60 MG PO ×2 (08:50→17:08)
[2021-04-29] MEDS: BENZONATATE 100 MG CAPSULE 200 MG PO ×3 (08:51→17:08)
[2021-04-29] MEDS: OLANZapine 5 MG TABLET PO (12:31)
[2021-04-29 13:27] LABS: Potassium 4.2 mmol/L (3.4-5.0)
--- NOTE | 2021-04-29 14:58 | PM.IMPN ---
Progress Note: A&P Assessment and Plan (1) COPD exacerbation: Code(s): J44.1 - Chronic obstructive pulmonary disease with (acute) exacerbation Status: Acute Assessment and Plan: 04/27/21 11:49 04/25 patient is 75-year-old female with chronic respiratory failure on home oxygen, history of COPD, history of a small cell carcinoma and unfortunately patient still smokes presented emergency department with complaint of cough shortness of breath and wheezing with exacerbation of COPD, emergency depart patient was started on Solu-Medrol and updraft, patient be seen mattress specialist and further recommendation to follow, patient also has history coronary artery disease her EKG abnormal concerning for atrial fibrillation we have consulted industrial designer for further recommendation, patient left lower extremity with open sore and hyperemic concerning for cellulitics will continue to monitor patient once clinically stable will have a PT OT evaluate the patient. 04/26 Patient with exacerbation of COPD being treated with Solu-Medrol updraft and azithromycin patient still complains of cough shortness of breath and wheezing denies any fever or chills, will CPM, patient be seen mattress specialist further recommendation to follow, patient with abnormal EKG suggesting atrial fibrillation discussed and reviewed the EKG with the cardiology did not suspect atrial fibrillation and no further workup is recommended, patient also complains difficulty breathing with left nostril chronic will give saline spray as will is Flonase, will consult ENT for further recommendation. 04/27 Today patient states see history of anxiety is getting worse in the hospital, patient takes and 0.5 mg every 6 hours at home as needed patient has been given every 8 hours in the hospital will go ahead switch over to Xanax 0.5 mg every 6 hours as needed, patient breathing is improved will go end taper Solu-Medrol to prednisone 50 mg q.day, will continue to monitor patient, the PT OT evaluate the patient, will reassess tomorrow and possibly discharge the patient. upon arrival there was a concern of abnormal EKG which I reviewed with cardiology he does not suspect any cardiac pathology however cardiac echo has been ordered and is pending will follow-up. 04/28: patient feeling better on prednisone 50 mg daily which will continue she will hypokalemic today will replace and recheck and monitor . magnesium is normal. chronic hyponatremia which is stable. Continue inhaler. Alprazolam p.r.n. for anxiety vital signs stable continue diuretics. Chronic hypercapnic respiratory failure with compensated metabolic alkalosis. Continue azithromycin day 4 today continue ceftriaxone. Recheck labs in the morning . Reviewed echo 04/29: Feeling better. Nasal obstruction noted already on Flonase and saline spray. Will add Afrin nasal spray for few days. After 3 days. Continue prednisone 50 mg a day. Hypokalemic severely on oral supplement. Magnesium level is normal. Hyponatremia has improved 129 today. Renal function is stable azithromycin Diederich 5 today will stop after finishing 5 days course. Continue ceftriaxone. Labs in a.m. (2) Edema: Qualifiers: Edema type: unspecified Qualified Code(s): R60.9 - Edema, unspecified Code(s): R60.9 - Edema, unspecified Status: Acute Assessment and Plan: patient appears euvolemic will continue to monitor (3) Tobacco abuse: Code(s): Z72.0 - Tobacco use Status: Acute Assessment and Plan: will start the patient on nicotine patch (4) Obstructive sleep apnea: Code(s): G47.33 - Obstructive sleep apnea (adult) (pediatric) Status: Acute Assessment and Plan: patient seen by mattress specialist and further recommendation to follow (5) Atrial fibrillation: Code(s): I48.91 - Unspecified atrial fibrillation Status: Acute Assessment and Plan: EKG showed atrial fibrillation will consult
[2021-04-29] MEDS: LOSARTAN POTASSIUM 100 MG TABLET PO (15:25)
[2021-04-29] MEDS: buPROPion HCL 75 MG TABLET PO (17:08)
[2021-04-29] MEDS: POTASSIUM CHLORIDE 20 MEQ TABLET.ER 40 MEQ PO (17:08)
[2021-04-29] MEDS: cloNIDine HCL 0.1 MG TABLET PO (21:01)
[2021-04-29] MEDS: OXYMETAZOLINE HCL 0.05% NAS 15 ML BTL (*BKC) 1 SPRAY NASAL (21:03)
[2021-04-30] VITALS (12 sets, daily range): BP systolic 127–142; BP diastolic 47–75; PULSE 53–92; RESP 14–20; TEMP 36.5–36.6; O2SAT 91–99
[2021-04-30] MEDS: ALPRAZolam (*CRX) 0.5 MG TABLET PO ×3 (00:38→22:02)
[2021-04-30] MEDS: IPRATROPIUM BR 0.02% INH SOLN 0.5 MG/2.5 ML VIAL INHALATION ×4 (01:30→20:05)
[2021-04-30] MEDS: ALBUTEROL SULFATE NEB 2.5 MG/0.5 ML INH INHALATION ×4 (01:30→20:05)
[2021-04-30] MEDS: CYCLOBENZAPRINE HCL 5 MG TABLET PO ×3 (05:55→21:03)
[2021-04-30 06:25] LABS: Alanine Aminotransferase 24 U/L (4-35); Albumin Level 3.9 g/dL (3.5-5.1); Alkaline Phosphatase 64 U/L (38-126); Aspartate Amino Transferase 31 U/L (14-36); Bilirubin,Total 0.4 mg/dL (0.2-1.3); Blood Urea Nitrogen 38 mg/dL (7-17); Calcium 9.3 mg/dL (8.4-10.2); Carbon Dioxide > 40 mmol/L (22-30); Chloride 87 mmol/L (98-107); Estimated CRCL calculation 39 ml/min; Estimated Glomerular Filt Rate 48; Glucose 89 mg/dL (65-105); Potassium 4.1 mmol/L (3.4-5.0); Sodium 133 mmol/L (137-145)
[2021-04-30 06:30] LABS: Eosinophils Percent Auto 0.5 % (0-4.4); Hematocrit 40.7 % (37.0-47.0); Hemoglobin 13.9 g/dL (12.0-15.0); Immature Granulocyte Absolute 0.04 K/mm3 (0.00-0.031); Immature Granulocyte Percent A 0.5 % (0-0.5); Lymphocytes Absolute Auto 1.46 K/mm3 (0.9-3.2); Lymphocytes Percent Auto 19.2 % (18.3-44.2); Mean Corpuscular HGB Conc 34.2 g/dl (32-36); Mean Corpuscular Hemoglobin 32.3 pg (26-34); Mean Corpuscular Volume 94.4 fl (80-100); Mean Platelet Volume 8.8 fl (7.4-10.4); Monocytes Absolute Auto 0.8 K/mm3 (0.1-0.6); Monocytes Percent Auto 10.4 % (2.6-8.5); Neutrophils Absolute Auto 5.3 K/mm3 (1.3-6.7); Neutrophils Percent Auto 69.4 % (45.5-73.1); Platelet Count Result 248 k/mm3 (150-375); Red Blood Count 4.31 M/mm3 (4.2-5.4); Red Cell Distribution Width 12.4 % (11.5-14.5); White Blood Count 7.6 K/mm3 (4.5-10.0)
[2021-04-30] MEDS: buPROPion HCL 75 MG TABLET PO ×2 (09:52→17:28)
[2021-04-30] MEDS: LOSARTAN POTASSIUM 100 MG TABLET PO (09:53)
[2021-04-30] MEDS: ROSUVASTATIN 10 MG TABLET 40 MG PO (09:54)
[2021-04-30] MEDS: NICOTINE (*PBKC) 7 MG PATCH 1 PATCH TRANSDERM (09:54)
[2021-04-30] MEDS: BENZONATATE 100 MG CAPSULE 200 MG PO ×3 (09:54→17:27)
[2021-04-30] MEDS: FOLIC ACID 0.4 MG TABLET 0.8 MG PO (09:55)
[2021-04-30] MEDS: FUROSEMIDE 20 MG TABLET 60 MG PO ×2 (09:55→17:25)
[2021-04-30] MEDS: OLANZapine 5 MG TABLET PO (09:55)
[2021-04-30] MEDS: POTASSIUM CHLORIDE 20 MEQ TABLET.ER 40 MEQ PO ×2 (09:56→17:28)
[2021-04-30] MEDS: CLOPIDOGREL BISULFATE 75 MG TABLET PO (09:56)
[2021-04-30] MEDS: MAGNESIUM OXIDE 400 MG TABLET PO (09:56)
[2021-04-30] MEDS: guaiFENesin 12 HR 600 MG TABCR PO ×2 (09:56→21:03)
[2021-04-30] MEDS: CYANOCOBALAMIN 1,000 MCG TABLET 1000 MCG PO (09:56)
[2021-04-30] MEDS: SPIRONOLACTONE 50 MG TABLET PO ×2 (09:56→17:26)
[2021-04-30] MEDS: predniSONE 40 MG, predniSONE 10 MG 50 MG PO (09:56)
[2021-04-30] MEDS: ASPIRIN 81 MG ENTERIC TABLET PO (09:57)
--- NOTE | 2021-04-30 15:14 | PM.IMPN ---
Progress Note: A&P Assessment and Plan (1) COPD exacerbation: Code(s): J44.1 - Chronic obstructive pulmonary disease with (acute) exacerbation Status: Acute Assessment and Plan: 04/27/21 11:49 04/25 patient is 75-year-old female with chronic respiratory failure on home oxygen, history of COPD, history of a small cell carcinoma and unfortunately patient still smokes presented emergency department with complaint of cough shortness of breath and wheezing with exacerbation of COPD, emergency depart patient was started on Solu-Medrol and updraft, patient be seen pest management supervisor and further recommendation to follow, patient also has history coronary artery disease her EKG abnormal concerning for atrial fibrillation we have consulted histology technologist for further recommendation, patient left lower extremity with open sore and hyperemic concerning for cellulitics will continue to monitor patient once clinically stable will have a PT OT evaluate the patient. 04/26 Patient with exacerbation of COPD being treated with Solu-Medrol updraft and azithromycin patient still complains of cough shortness of breath and wheezing denies any fever or chills, will CPM, patient be seen pest management supervisor further recommendation to follow, patient with abnormal EKG suggesting atrial fibrillation discussed and reviewed the EKG with the cardiology did not suspect atrial fibrillation and no further workup is recommended, patient also complains difficulty breathing with left nostril chronic will give saline spray as will is Flonase, will consult ENT for further recommendation. 04/27 Today patient states see history of anxiety is getting worse in the hospital, patient takes and 0.5 mg every 6 hours at home as needed patient has been given every 8 hours in the hospital will go ahead switch over to Xanax 0.5 mg every 6 hours as needed, patient breathing is improved will go end taper Solu-Medrol to prednisone 50 mg q.day, will continue to monitor patient, the PT OT evaluate the patient, will reassess tomorrow and possibly discharge the patient. upon arrival there was a concern of abnormal EKG which I reviewed with cardiology he does not suspect any cardiac pathology however cardiac echo has been ordered and is pending will follow-up. 04/28: patient feeling better on prednisone 50 mg daily which will continue she will hypokalemic today will replace and recheck and monitor . magnesium is normal. chronic hyponatremia which is stable. Continue inhaler. Alprazolam p.r.n. for anxiety vital signs stable continue diuretics. Chronic hypercapnic respiratory failure with compensated metabolic alkalosis. Continue azithromycin day 4 today continue ceftriaxone. Recheck labs in the morning . Reviewed echo 04/29: Feeling better. Nasal obstruction noted already on Flonase and saline spray. Will add Afrin nasal spray for few days. After 3 days. Continue prednisone 50 mg a day. Hypokalemic severely on oral supplement. Magnesium level is normal. Hyponatremia has improved 129 today. Renal function is stable azithromycin day 5 today will stop after finishing 5 days course. Continue ceftriaxone. Labs in a.m. 04/30 she is about the same as yesterday. Hypokalemia has resolved continue on prednisone apnea link was unremarkable last night will stop azithromycin today. Will add to her nasal inhalation for mucolytic action. Continue on benzonatate and guaifenesin. Continue Lasix and prednisone 50 mg a day. Start to taper at discharge will do oxygen evaluation with rest and activity today potential discharge is planned in the morning if remains stable discussed with patient about discharge. Home health arrangement implants (2) Edema: Qualifiers: Edema type: unspecified Qualified Code(s): R60.9 - Edema, unspecified Code(s): R60.9 - Edema, unspecified Status: Acute Assessment and Plan: patient appears euvolemic will continue to monitor (3) Tobacco abuse:
[2021-04-30] MEDS: DORNASE ALFA INH SOLN 1 MG/ML 2.5 ML AMP 2.5 MG INHALATION (20:06)
[2021-04-30] MEDS: DOCUSATE SODIUM 100 MG CAPSULE PO (21:03)
[2021-04-30] MEDS: cloNIDine HCL 0.1 MG TABLET PO (21:04)
[2021-05-01] VITALS (11 sets, daily range): BP systolic 125; BP diastolic 61; PULSE 67–92; RESP 18–20; TEMP 36.6; O2SAT 86–97
[2021-05-01] MEDS: IPRATROPIUM BR 0.02% INH SOLN 0.5 MG/2.5 ML VIAL INHALATION ×2 (02:05→07:46)
[2021-05-01] MEDS: ALBUTEROL SULFATE NEB 2.5 MG/0.5 ML INH INHALATION ×2 (02:05→07:46)
[2021-05-01] MEDS: CYCLOBENZAPRINE HCL 5 MG TABLET PO (05:37)
[2021-05-01 06:11] LABS: Basophils Percent Auto 0.1 % (0.2-1.2); Eosinophils Absolute Auto 0.1 K/mm3 (0-0.3); Eosinophils Percent Auto 1.2 % (0-4.4); Hematocrit 42.6 % (37.0-47.0); Hemoglobin 14.1 g/dL (12.0-15.0); Immature Granulocyte Absolute 0.04 K/mm3 (0.00-0.031); Immature Granulocyte Percent A 0.5 % (0-0.5); Lymphocytes Absolute Auto 1.53 K/mm3 (0.9-3.2); Lymphocytes Percent Auto 18.1 % (18.3-44.2); Mean Corpuscular HGB Conc 33.1 g/dl (32-36); Mean Corpuscular Hemoglobin 32.3 pg (26-34); Mean Corpuscular Volume 97.5 fl (80-100); Monocytes Absolute Auto 0.8 K/mm3 (0.1-0.6); Monocytes Percent Auto 9.8 % (2.6-8.5); Neutrophils Absolute Auto 5.9 K/mm3 (1.3-6.7); Neutrophils Percent Auto 70.3 % (45.5-73.1); Platelet Count Result 231 k/mm3 (150-375); Red Blood Count 4.37 M/mm3 (4.2-5.4); Red Cell Distribution Width 12.5 % (11.5-14.5); White Blood Count 8.4 K/mm3 (4.5-10.0)
[2021-05-01 06:23] LABS: Blood Urea Nitrogen 34 mg/dL (7-17); Calcium 9.8 mg/dL (8.4-10.2); Carbon Dioxide > 40 mmol/L (22-30); Chloride 89 mmol/L (98-107); Estimated CRCL calculation 42 ml/min; Estimated Glomerular Filt Rate 54; Glucose 91 mg/dL (65-105); Potassium 4.2 mmol/L (3.4-5.0); Sodium 133 mmol/L (137-145)
[2021-05-01] MEDS: DORNASE ALFA INH SOLN 1 MG/ML 2.5 ML AMP 2.5 MG INHALATION (07:45)
--- NOTE | 2021-05-01 09:30 | PM.DS ---
DS: Admitting Diagnosis Admitting Diagnosis Admitting Diagnosis: Shortness of breath DS: Discharge Diagnosis Discharge Diagnosis (1) Atrial fibrillation: Code(s): I48.91 - Unspecified atrial fibrillation Status: Acute (2) COPD exacerbation: Code(s): J44.1 - Chronic obstructive pulmonary disease with (acute) exacerbation Status: Acute (3) Anxiety: Code(s): F41.9 - Anxiety disorder, unspecified Status: Acute (4) Depression: Qualifiers: Depression Type: unspecified Qualified Code(s): F32.9 - Major depressive disorder, single episode, unspecified Code(s): F32.9 - Major depressive disorder, single episode, unspecified Status: Acute (5) Mixed hyperlipidemia: Code(s): E78.2 - Mixed hyperlipidemia Status: Acute (6) Edema: Qualifiers: Edema type: unspecified Qualified Code(s): R60.9 - Edema, unspecified Code(s): R60.9 - Edema, unspecified Status: Acute (7) Vitamin B12 deficiency: Code(s): E53.8 - Deficiency of other specified B group vitamins Status: Acute (8) Acute and chronic respiratory failure with hypoxia: Code(s): J96.21 - Acute and chronic respiratory failure with hypoxia Status: Acute DS: Summary Hospital Course Hospital Course: known this is a 75-year-old female with chronic respiratory failure on home oxygen, history of COPD, history of small cell carcinoma with continued smoking presented on 04/25/2021 with complaint of cough shortness of breath and wheezing. She was admitted with acute on chronic respiratory failure with exacerbation of COPD. She was given Solu-Medrol and bronchodilators. she was also started on antibiotics. Pulmonary was consulted. her her improvement was slow with added component of anxiety. There was a concern of abnormal EKG on admission which reviewed with cardiology and he did not suspect any cardiac path pathology. Cardiac echocardiogram was done which showed left ventricular systolic function hyperdynamic it more than 70%, moderately increased left ventricular wall thickness, left ventricular septal wall motion is normal related to bundle branch block, grade 1 diastolic dysfunction and mild aortic valve sclerosis, estimated pulmonary artery systolic pressure to be 34 mm Hg. She was also noted to have hypercapnia on ABG analysis. She also has chronic hyponatremia always remained stable. She also had intermittent high as severe hypo kalemia during the hospital stay which is managed with the potassium supplementation. She was given additional mucolytics with benzonatate go off a Kyrie and also Pulmozyme while hospital stay. She has albuterol and ipratropium nebulization at home and has a nebulizer at home. We also did an apnea link test to rule out sleep apnea which came back negative. She will be switched to antibiotic cefdinir at the time of discharge to continue for few more days along with slow taper of her prednisone at discharge. She was evaluated with home oxygen evaluation by respiratory therapy and she was at her baseline level by the time of discharge. She is advised to follow-up with primary care doctor in week. Status at Discharge Functional status at discharge: independent ambulation Overall status at discharge: patient is progressing back to baseline Time Spent with Patient Time attestation: Total time spent providing and/or coordinating discharge services: 50 minutes Exam Narrative: Exam Narrative: Exam Narrative: Patient is comfortable, NAD HEENT: eyes are clear and none icteric LUNGS: bilateral poor air entry with expiratory wheezing slightly improved from yesterday HEART: RR S1S2 ABD: BS+, Soft and nontender Lower extremities: no edema, left lower extremitiy along gallo open sore and hyperemic. SKIN: nonjaundiced Neuro: grossly intact. alert and oriented x 3 DS: Data Data Completed and Pending Labs on day of discharge: Labs from last 24 hours
[2021-05-01] MEDS: FOLIC ACID 0.4 MG TABLET 0.8 MG PO (10:27)
[2021-05-01] MEDS: DOCUSATE SODIUM 100 MG CAPSULE PO (10:27)
[2021-05-01] MEDS: BENZONATATE 100 MG CAPSULE 200 MG PO (10:27)
[2021-05-01] MEDS: NICOTINE (*PBKC) 7 MG PATCH 1 PATCH TRANSDERM (10:28)
[2021-05-01] MEDS: SPIRONOLACTONE 50 MG TABLET PO (10:28)
[2021-05-01] MEDS: predniSONE 40 MG, predniSONE 10 MG 50 MG PO (10:28)
[2021-05-01] MEDS: FUROSEMIDE 20 MG TABLET 60 MG PO (10:28)
[2021-05-01] MEDS: POTASSIUM CHLORIDE 20 MEQ TABLET.ER 40 MEQ PO (10:28)
[2021-05-01] MEDS: ROSUVASTATIN 10 MG TABLET 40 MG PO (10:28)
[2021-05-01] MEDS: CYANOCOBALAMIN 1,000 MCG TABLET 1000 MCG PO (10:29)
[2021-05-01] MEDS: MAGNESIUM OXIDE 400 MG TABLET PO (10:29)
[2021-05-01] MEDS: LOSARTAN POTASSIUM 100 MG TABLET PO (10:29)
[2021-05-01] MEDS: ASPIRIN 81 MG ENTERIC TABLET PO (10:29)
[2021-05-01] MEDS: CLOPIDOGREL BISULFATE 75 MG TABLET PO (10:29)
[2021-05-01] MEDS: guaiFENesin 12 HR 600 MG TABCR PO (10:29)
[2021-05-01] MEDS: buPROPion HCL 75 MG TABLET PO (10:30)
--- NOTE | 2021-05-01 11:11 | PCRCNOTE ---
HOME O2 EVAL COMPLETE, NO CHANGE IN HOME SETTINGS. 2 LITERS AT REST AND WITH ACTIVITY
[2021-05-01] MEDS: ALPRAZolam (*CRX) 0.5 MG TABLET PO (13:08)
== END 2021-05-01 13:20 | disposition home health service (06) | DRG 190 ==
LOC: ANHED 06:20 → ANH3MEDSUR 10:17
PROVIDERS: Family Medicine; Internal Medicine; Admitting Provider Internal Medicine; Emergency Provider Emergency Medicine; PCP Internal Medicine; Visit Provider Internal Medicine
DX: J43.9 Emphysema, unspecified (principal); J96.21 Acute and chronic respiratory failure with hypoxia; I50.22 Chronic systolic (congestive) heart failure; E87.1 Hypo-osmolality and hyponatremia; J96.12 Chronic respiratory failure with hypercapnia; I11.0 Hypertensive heart disease with heart failure; Z99.81 Dependence on supplemental oxygen; E87.6 Hypokalemia; F41.9 Anxiety disorder, unspecified; G47.33 Obstructive sleep apnea (adult) (pediatric); I25.10 Atherosclerotic heart disease of native coronary artery without angina pectoris; I48.91 Unspecified atrial fibrillation; R60.9 Edema, unspecified; F17.210 Nicotine dependence, cigarettes, uncomplicated; E78.2 Mixed hyperlipidemia; F32.9 Major depressive disorder, single episode, unspecified; E53.8 Deficiency of other specified B group vitamins; Z79.82 Long term (current) use of aspirin; Z79.899 Other long term (current) drug therapy; Z85.118 Personal history of other malignant neoplasm of bronchus and lung; Z90.2 Acquired absence of lung [part of]
CPT/HCPCS: 36415; 36600; 71045; 80048; 80053; 82375; 82805; 83050; 83735; 83880; 84132; 84484; 85025; 85027; 85610; 85730; 93005; 93306; 94618; 94640; 94762; 96374; 99285; A9270; J0456; J0696; J2920; J2930; J3360; J3475; J3480; J7060; J7512

== ENCOUNTER 2021-05-28 16:31 | Outpatient (CLI) | payer MEDICARE, SELFPAY ==
--- NOTE | ~2021-05-28 | CT_ITS ---
EXAMINATION: CT diagnostic chest wo con DATE: 05/28/2021 16:56 INDICATION: Thoracic aortic aneurysm TECHNIQUE: Computed tomography (CT) of the chest was performed without intravenous contrast. The dose -length product (DLP) was 184.26 mGy-cm. Automated exposure control and iterative reconstruction tech nique were employed. 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 There are changes of right upper lobectomy. Moderate emphysema is noted. Calcified pulmonary nodules are consistent with old gra nulomatous disease. There is no pleural effusion or pneumothorax. The heart size is normal. There is 1.7 cm cyst of the liver. An aberrant right subclavian artery is again noted. There is severe thoraci c spondylosis. IMPRESSION: 1. 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 Reviewed, dictated and finalized at location A. IMPRESSION: 1. 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
== END 2021-05-28 16:32 | disposition home or self-care (01) ==
LOC: ANHIMG 16:32
PROVIDERS: PCP Internal Medicine
DX: I71.2 Thoracic aortic aneurysm, without rupture (principal)
CPT/HCPCS: 71250

== ENCOUNTER 2021-06-04 17:37 | Inpatient (IN) | payer MEDICARE, SELFPAY ==
[2021-06-04] VITALS (13 sets, daily range): BP systolic 91–140; BP diastolic 58–83; PULSE 95–114; RESP 17–24; TEMP 36.6; O2SAT 98–100; BMI 27.4
--- NOTE | 2021-06-04 | ECG_ITS ---
Measurements Intervals [place] Rate: 103 P: 84 WI: 173 QRS: 17 QRSD: 126 T: 119 QT: 372 QTc: 489 Interpretive Statements SINUS TACHYCARDIA LEFT BUNDLE BRANCH BLOCK BASELINE ARTIFACT- AVR, AVL, AVF ABNORMAL ECG Electronically Signed On 06-05-2021 8:13:22 CDT by Todd Sam D.O.
--- NOTE | ~2021-06-04 | XR_ITS ---
EXAMINATION: XR chest 1V portable DATE: 06/04/2021 17:56 INDICATION: Shortness of breath. TECHNIQUE: A single frontal view of the chest was obtained. COMPARISON: Chest single view 04/27/2021, chest CT 05/28/2021 FINDINGS: There is volume loss of right lung with staple lines from right upper lobectomy. There is s table mild elevation of right hemidiaphragm. There are lucencies in the lungs, consistent with emphys jonathan. No pleural effusion or pneumothorax. The heart size is normal. IMPRESSION: 1. Emphysema. 2. Right upper lobectomy. Reviewed, dictated and finalized at location A.
[2021-06-04 17:48] LABS: Basophils Percent Auto 0.5 % (0.2-1.2); Eosinophils Percent Auto 0.5 % (0-4.4); Hemoglobin 11.9 g/dL (12.0-15.0); Immature Granulocyte Absolute 0.05 K/mm3 (0.00-0.031); Immature Granulocyte Percent A 0.6 % (0-0.5); Lymphocytes Absolute Auto 1.41 K/mm3 (0.9-3.2); Lymphocytes Percent Auto 18.2 % (18.3-44.2); Mean Corpuscular HGB Conc 33.1 g/dl (32-36); Mean Corpuscular Hemoglobin 31.4 pg (26-34); Mean Platelet Volume 9.2 fl (7.4-10.4); Monocytes Absolute Auto 1.1 K/mm3 (0.1-0.6); Monocytes Percent Auto 13.7 % (2.6-8.5); Neutrophils Absolute Auto 5.2 K/mm3 (1.3-6.7); Neutrophils Percent Auto 66.5 % (45.5-73.1); Platelet Count Result 269 k/mm3 (150-375); Red Blood Count 3.79 M/mm3 (4.2-5.4); Red Cell Distribution Width 15.3 % (11.5-14.5); White Blood Count 7.8 K/mm3 (4.5-10.0)
[2021-06-04 17:58] LABS: Anion Gap 6 mmol/L (8-16); Blood Urea Nitrogen 16 mg/dL (7-17); Calcium 9.3 mg/dL (8.4-10.2); Carbon Dioxide 36 mmol/L (22-30); Chloride 99 mmol/L (98-107); Estimated CRCL calculation 30 ml/min; Estimated Glomerular Filt Rate 37; Glucose 93 mg/dL (65-110); INR 0.9; Potassium 2.9 mmol/L (3.4-5.0); Prothrombin Time 12.5 Seconds (11.1-14.7); Sodium 141 mmol/L (137-145)
[2021-06-04 18:10] LABS: Troponin I < 0.012 ng/mL (0.000-0.034)
[2021-06-04] MEDS: IPRATROPIUM BR 0.02% INH SOLN 0.5 MG/2.5 ML VIAL INHALATION (18:12)
[2021-06-04] MEDS: ALBUTEROL SULFATE NEB 2.5 MG/0.5 ML INH 5 MG INHALATION (18:13)
[2021-06-04] MEDS: POTASSIUM CHLORIDE 20 MEQ TABLET 40 MEQ PO (18:23)
[2021-06-04 18:26] LABS: Magnesium 2.3 mg/dL (1.6-2.3)
--- NOTE | 2021-06-04 18:26 | PCRCNOTE ---
Patient refused ABG, provider is aware, stated order will be cancelled.
[2021-06-04 18:44] LABS: Alanine Aminotransferase 25 U/L (4-35); Albumin Level 3.9 g/dL (3.5-5.1); Alkaline Phosphatase 102 U/L (38-126); Aspartate Amino Transferase 34 U/L (14-36); Bilirubin,Total 0.8 mg/dL (0.2-1.3)
--- NOTE | 2021-06-04 18:46 | ED.CHESTPAIN ---
HPI - Chest Pain General Chief Complaint: Chest Pain Stated Complaint: CP Source: patient, RN notes reviewed and old records reviewed Mode of arrival: EMS Limitations: no limitations History of Present Illness HPI narrative: This is 75 year old female with history of COPD, home oxygen 2 L NC, CAD with stents who presents from home for evaluation of chest tightness. She reports earlier this afternoon she develop chest tightness across her chest when she was walking to the bathroom. She states she took her isosorbide and she waited on her to return home. Her chest tightness has been constant for a couple hours. She states her isosorbide did not help with her chest tightness. She reports worsening shortness of breath with her tightness. She denies previous history of angina but she does have coronary stents in place. She denies fever, chills, vomiting or worsening cough. She was given aspirin 324 mg by EMS. Related Data Home Medications Medication Instructions Recorded Confirmed aspirin [Adult Low Dose Aspirin] 81 mg PO DAILY 06/11/20 06/05/21 albuterol sulfate [ProAir HFA] 2 inh INHALATION Q4H PRN 02/25/21 06/05/21 clonidine HCl 0.1 mg PO HS 02/25/21 06/05/21 clopidogrel 75 mg PO DAILY 02/25/21 06/05/21 folic acid 800 mcg tablet 0.8 mg PO DAILY 04/20/21 06/05/21 mecobalamin (vitamin B12) 1,000 1,000 mcg SUBLINGUAL DAILY 04/20/21 06/05/21 mcg disintegrating tablet,sublingual potassium chloride 20 mEq 40 meq PO BID tablet 04/20/21 06/05/21 tablet,extended release Breztri Aerosphere 2 inh INHALATION BID 04/25/21 06/05/21 albuterol sulfate 2.5 mg INHALATION Q6H PRN 06/05/21 06/05/21 guaifenesin 600 mg PO BID PRN 06/05/21 06/05/21 ipratropium bromide 0.5 mg INHALATION Q6H PRN 06/05/21 06/05/21 ondansetron 4 mg TRANSLINGUAL Q8H PRN 06/05/21 06/05/21 plecanatide [Trulance] 3 mg PO DAILY PRN 06/05/21 06/05/21 spironolactone 50 mg PO BID 06/05/21 06/05/21 Allergies Allergy/AdvReac Type Severity Reaction Status Date / Time atorvastatin Allergy Unknown leg cramps Verified 06/04/21 17:47 ezetimibe Allergy Unknown drowsiness Verified 06/04/21 17:47 fluticasone Allergy Unknown Asthma Verified 06/04/21 17:47 pravastatin Allergy Unknown leg cramps Verified 06/04/21 17:47 salmeterol [Advair Diskus] Allergy Unknown Asthma Verified 06/04/21 17:47 rosuvastatin AdvReac Unknown muscle Verified 06/04/21 17:47 cramps Review of Systems Review of Systems: All systems reviewed & are unremarkable except as noted in HPI and below PMFSH Past Medical History Medical History AAA (abdominal aortic aneurysm) Abdominal pain Anxiety BMI 28.0-28.9,adult BMI 29.0-29.9,adult Constipation COPD (chronic obstructive pulmonary disease) emphysema Depression Edema Elevated glucose Encounter to establish care Family history of diabetes mellitus Fatigue History of gastric ulcer History of lung cancer Hospital discharge follow-up Hypersomnia Hypertension Hypoxia IBS (irritable bowel syndrome) alf current use of therapeutic drug Lung cancer Mixed hyperlipidemia Nausea Obstructive sleep apnea 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 Personal history of nicotine dependence Polycythemia Systolic CHF Tobacco abuse Vitamin B12 deficiency Surgical History Surgical History History of appendectomy History of hysterectomy History of lobectomy of lung Social History Social History Smoking packs per day: 0.5 Smoking cigarettes per day: 10.0 Years smoked: 55 Smoking pack-years: 27.50 Smoking status: Former smoker Tobacco type: cigarettes Second hand tobacco smoke exposure: Yes Additional smoking assessment comments: She states she quit 1 month ago Alcohol intake: former Drinks per week: 1 Substance use: never Gender identity (if verbalized by the patien
[2021-06-04 18:53] LABS: NT Pro B Type Natriuretic Pept 367 pg/mL (5-100)
[2021-06-04] MEDS: SODIUM CHLORIDE 0.9% IV 500 ML 999 ML IV CONT (19:26)
[2021-06-04] MEDS: ALPRAZolam (*CRX) 0.25 MG TABLET 0.5 MG PO (20:04)
[2021-06-04] MEDS: ALBUTEROL SULFATE NEB 2.5 MG/0.5 ML INH (21:24)
[2021-06-04] MEDS: IPRATROPIUM BR 0.02% INH SOLN 0.5 MG/2.5 ML VIAL (21:25)
[2021-06-04 21:58] LABS: Troponin I 0.015 ng/mL (0.000-0.034)
[2021-06-05] VITALS (22 sets, daily range): BP systolic 97–138; BP diastolic 54–75; PULSE 68–105; RESP 14–25; TEMP 36.4–36.9; O2SAT 92–100
[2021-06-05 00:10] LABS: Troponin I 0.017 ng/mL (0.000-0.034)
[2021-06-05] MEDS: ONDANSETRON HCL ODT 4 MG TABLET PO ×2 (00:20→17:31)
[2021-06-05] MEDS: guaiFENesin 12 HR 600 MG TABCR PO ×2 (00:35→20:12)
[2021-06-05] MEDS: FAMOTIDINE 20 MG TABLET 40 MG PO ×2 (00:36→08:33)
[2021-06-05] MEDS: IPRATROPIUM BR 0.02% INH SOLN 0.5 MG/2.5 ML VIAL INHALATION ×6 (01:22→23:11)
[2021-06-05] MEDS: ALBUTEROL SULFATE NEB 2.5 MG/0.5 ML INH 5 MG INHALATION (01:23)
--- NOTE | 2021-06-05 01:23 | PM.IMHP ---
H&P: HPI History of Present Illness Date/Time: 06/05/21 01:23 Chief Complaint: shortness of breath Narrative: This is a 75-year-old female with past medical history significant for COPD /emphysema, hypertension, congestive heart failure, grade 1 diastolic dysfunction,dyslipidemia, coronary artery disease, Former tobacco use. She presented to the emergency room due to shortness of breath, chest tightness wheezing. She denies any fevers ,rigors ,chills. her she uses 2 L by nasal cannula of supplemental oxygen at home. In emergency room patient received a breathing treatments at the time of my visit she denied any discomfort. preliminary workup has been pretty much unrevealing. she had a prior admission to the hospital does in March where she was treated for worsening respiratory failure and discharged home. she denies any cough with sputum production or changes in phlegm and quality no fevers no rigors no chills. patient states that she always wheezes. Decision has been made to place the patient in observation. Review of Systems Review of Systems: patient presented to emergency room via EMS due to acute shortness of breath and chest tightness Constitutional: Constitutional: Denies chills, Denies fatigue and Denies fever(s) Eyes: Eyes: Denies change in vision ENT: Denies dysphagia, Denies dizziness, Denies nasal congestion, Denies nasal discharge, Denies nasal obstruction and Denies odynophagia Cardiovascular: Cardiovascular: Denies chest pain, Denies leg edema, Denies radiating jaw, neck or arm pain, Denies palpitations and Reports dyspnea Respiratory: Respiratory: Denies cough, Reports dyspnea and Reports wheezing Gastrointestinal: Gastrointestinal: Denies dyspepsia, Denies nausea and Denies vomiting Genitourinary: Genitourinary: Reports no additional female genitourinary complaints Musculoskeletal: Musculoskeletal: Reports no additional musculoskeletal complaints Integumentary/Breasts: Skin/Breast: Reports system reviewed and no additional complaints, except as docu Neurologic: Reports system reviewed and no additional complaints, except as documented Psychiatric: Psychiatric: Reports no additional psychiatric complaints Endocrine: Endocrine: Reports no additional endocrine complaints Hematologic/Lymphatic: Hematologic/Lymphatic: Reports no additional hematologic/lymphatic complaints Allergic/Immunologic: Allergic/Immunologic: Reports no additional allergic/immunologic complaints PMFSH Past Medical History Medical History AAA (abdominal aortic aneurysm) Abdominal pain Anxiety BMI 28.0-28.9,adult BMI 29.0-29.9,adult Constipation COPD (chronic obstructive pulmonary disease) emphysema Depression Edema Elevated glucose Encounter to establish care Family history of diabetes mellitus Fatigue History of gastric ulcer History of lung cancer Hospital discharge follow-up Hypersomnia Hypertension Hypoxia IBS (irritable bowel syndrome) snf current use of therapeutic drug Lung cancer Mixed hyperlipidemia Nausea Obstructive sleep apnea 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 Personal history of nicotine dependence Polycythemia Systolic CHF Tobacco abuse Vitamin B12 deficiency Surgical History Surgical History History of appendectomy History of hysterectomy History of lobectomy of lung Social History Social History (Updated 06/04/21 @ 18:51 by Malena Velazco MD) Smoking packs per day: 0.5 Smoking cigarettes per day: 10.0 Years smoked: 55 Smoking pack-years: 27.50 Smoking status: Former smoker Tobacco type: cigarettes Second hand tobacco smoke exposure: Yes Additional smoking assessment comments: She states she quit 1 month ago Alcohol intake: former Drinks per week: 1 Substance use: never Gender identity (if verbalized by the patient): Female Spiritual care concerns: No Med
[2021-06-05] MEDS: ALPRAZolam (*CRX) 0.5 MG TABLET PO ×3 (02:52→23:36)
[2021-06-05] MEDS: methylPREDNISolone SOD SUCC 125 MG VIAL 60 MG IV PUSH ×4 (05:20→23:36)
[2021-06-05 05:24] LABS: Basophils Percent Auto 0.6 % (0.2-1.2); Eosinophils Percent Auto 0.7 % (0-4.4); Hematocrit 34.1 % (37.0-47.0); Hemoglobin 10.6 g/dL (12.0-15.0); Immature Granulocyte Absolute 0.03 K/mm3 (0.00-0.031); Immature Granulocyte Percent A 0.6 % (0-0.5); Lymphocytes Absolute Auto 1.22 K/mm3 (0.9-3.2); Lymphocytes Percent Auto 22.4 % (18.3-44.2); Mean Corpuscular HGB Conc 31.1 g/dl (32-36); Mean Corpuscular Hemoglobin 32.2 pg (26-34); Mean Corpuscular Volume 103.6 fl (80-100); Mean Platelet Volume 9.3 fl (7.4-10.4); Monocytes Absolute Auto 0.6 K/mm3 (0.1-0.6); Neutrophils Absolute Auto 3.5 K/mm3 (1.3-6.7); Neutrophils Percent Auto 64.7 % (45.5-73.1); Platelet Count Result 180 k/mm3 (150-375); Red Blood Count 3.29 M/mm3 (4.2-5.4); Red Cell Distribution Width 15.6 % (11.5-14.5); White Blood Count 5.4 K/mm3 (4.5-10.0)
[2021-06-05 05:32] LABS: Anion Gap 5 mmol/L (8-16); Blood Urea Nitrogen 20 mg/dL (7-17); Calcium 8.5 mg/dL (8.4-10.2); Carbon Dioxide 32 mmol/L (22-30); Chloride 98 mmol/L (98-107); Estimated CRCL calculation 31 ml/min; Estimated Glomerular Filt Rate 37; Glucose 86 mg/dL (65-110); Potassium 3.2 mmol/L (3.4-5.0); Sodium 135 mmol/L (137-145)
[2021-06-05] MEDS: ASPIRIN 81 MG ENTERIC TABLET PO (08:32)
[2021-06-05] MEDS: buPROPion HCL 75 MG TABLET 150 MG PO ×2 (08:33→17:34)
[2021-06-05] MEDS: POTASSIUM CHLORIDE 20 MEQ TABLET.ER 40 MEQ PO ×2 (08:33→17:34)
[2021-06-05] MEDS: CLOPIDOGREL BISULFATE 75 MG TABLET PO (08:33)
[2021-06-05] MEDS: POTASSIUM CHLORIDE 20 MEQ TABLET 40 MEQ PO (08:33)
[2021-06-05] MEDS: FOLIC ACID 0.4 MG TABLET 0.8 MG PO (08:33)
[2021-06-05] MEDS: CYANOCOBALAMIN 1,000 MCG TABLET 1000 MCG PO (08:33)
[2021-06-05] MEDS: DOCUSATE SODIUM 100 MG CAPSULE PO (08:33)
[2021-06-05] MEDS: MAGNESIUM OXIDE 400 MG TABLET PO (08:34)
[2021-06-05] MEDS: ROSUVASTATIN 10 MG TABLET 40 MG PO (08:34)
[2021-06-05] MEDS: NICOTINE (*PBKC) 21 MG PATCH 1 PATCH TRANSDERM (08:43)
[2021-06-05] MEDS: ALBUTEROL SULFATE NEB 2.5 MG/0.5 ML INH INHALATION ×5 (09:36→23:12)
--- NOTE | 2021-06-05 14:29 | WPDGICN ---
Assessment and Plan Assessment and plan (1) Abdominal pain: Code(s): R10.9 - Unspecified abdominal pain Status: Acute Assessment and Plan: her pain is chronic. Perhaps it is related to her constipation. I doubt mesenteric insufficiency, as it is not related to meals, although I am sure that she has some vascular compromise (2) Chronic respiratory failure with hypoxia: Code(s): J96.11 - Chronic respiratory failure with hypoxia Status: Acute Assessment and Plan: she had an exacerbation again yesterday but feels better now (3) Peptic ulcer disease: Code(s): K27.9 - Peptic ulcer, site unspecified, unspecified as acute or chronic, without hemorrhage or perforation Status: Acute Assessment and Plan: ulcers were found on endoscopy last year. She was to have been started on pantoprazole yesterday but apparently that prescription did not get to her pharmacy. We will schedule her for endoscopy in the near future to verify that the ulcers have or have not healed (4) Constipation: Qualifiers: Constipation type: unspecified constipation type Qualified Code(s): K59.00 - Constipation, unspecified Code(s): K59.00 - Constipation, unspecified Status: Acute Assessment and Plan: she has picked up her prescription for Trulance, but has not yet started it. GI Consult Note Consult date/time: 06/05/21 14:29 HPI: Hetal Stone is a 75 year old female Was admitted with shortness of breath and chest pressure. She does have a history of COPD. She stopped smoking about 2 months ago. She states that now her main complaint is her abdomen. In her words it all starts with my stomach . For the past couple years she has had a discomfort that seems to be constant but gets worse from time to time without any pattern. Is a pain across her stomach but primarily on the left side at the waistline and also in the left lower thorax near the costal margin. She had an EGD and colonoscopy 1 year ago which showed several small gastric antral ulcers. H pylori was negative. She was told by the physician who did the procedures rather curtly your problems are all because you smoke she took omeprazole for 2 months but did not feel that she got relief from that. Just yesterday she was seen by Ms. jasmine in our office regarding that pain and also her chronic constipation. She was to be started on pantoprazole but apparently that order was not received by her pharmacy. She was also started on Trulance for constipation. She states that she has use Linzess in the past but without any results. She is known have a abdominal aortic aneurysm and she states that recent CT was done to assess that. she has a thoracic aortic aneurysm and also an infrarenal aortic aneurysm. Her weight is stable. Her appetite is good. She does have polycythemia and because of that she would have phlebotomy every month for awhile but no longer needs that . 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
--- NOTE | 2021-06-05 15:02 | PHAR ---
PT'S HOME MED (Dhlzndjfdg-Kcuqmhls-Dyuacpatck [Breztri Aerosphere] 160-9-4.8 mcg/actuation verified by pharmacy
--- NOTE | 2021-06-05 15:36 | PHAR ---
RX [id number] IDENTIFIED TO CONTAIN DRUG NAME: MINDY INGREDIENTS: PLECANATIDE -- 3 MG RELATED DOCUMENTS: DRUGDEX EVALUATIONS - PLECANATIDE COLOR: WHITE TO OFF-WHITE SHAPE: [place] IMPRINT: 3 , SP FORM: ORAL TABLET
--- NOTE | 2021-06-05 16:05 | PC.NURSE ---
This patient, Hetal Stone, was transferred to [[id number]] on 06/05/21 at 1605. Personal belongings sent with patient. Report given to [Monique HSIEH]. Appropriate documentation sent with patient.
--- NOTE | 2021-06-05 16:16 | PM.IMPN ---
Progress Note: A&P Assessment and Plan (1) Acute exacerbation of chronic obstructive pulmonary disease: Code(s): J44.1 - Chronic obstructive pulmonary disease with (acute) exacerbation Status: Acute Assessment and Plan: breathing treatments continues pulse oximetry systemic steroids 06/05 patient with exacerbation of COPD being treated with Solu-Medrol and DuoNeb unfortunately patient is still smokes place the patient on nicotine patch, patient states feeling little better compared to when she arrived, patient clinically stable will transfer patient out of ICU, patient has a history of peptic ulcer disease seen by GI recommending Protonix, will continue to monitor the patient will have a PT OT evaluate the patient and further recommendation to follow. (2) Chronic respiratory failure with hypoxia: Code(s): J96.11 - Chronic respiratory failure with hypoxia Status: Acute Assessment and Plan: continue to monitor continue supplemental oxygen by nasal cannula (3) Tobacco abuse: Code(s): Z72.0 - Tobacco use Status: Acute Assessment and Plan: nicotine patch as needed (4) Diastolic heart failure: Code(s): I50.30 - Unspecified diastolic (congestive) heart failure Status: Acute Assessment and Plan: continue spironolactone and lasix monitor intake and output daily Subjective Date/time seen: 06/05/21 16:16 Chief Complaint: shortness of breath Narrative: This is a 75-year-old female with past medical history significant for COPD /emphysema, hypertension, congestive heart failure, grade 1 diastolic dysfunction,dyslipidemia, coronary artery disease, Former tobacco use. She presented to the emergency room due to shortness of breath, chest tightness wheezing. She denies any fevers ,rigors ,chills. her she uses 2 L by nasal cannula of supplemental oxygen at home. In emergency room patient received a breathing treatments at the time of my visit she denied any discomfort. preliminary workup has been pretty much unrevealing. she had a prior admission to the hospital does in March where she was treated for worsening respiratory failure and discharged home. she denies any cough with sputum production or changes in phlegm and quality no fevers no rigors no chills. patient states that she always wheezes. Decision has been made to place the patient in observation. 06/05 patient with exacerbation of COPD being treated with Solu-Medrol and DuoNeb unfortunately patient is still smokes place the patient on nicotine patch, patient states feeling little better compared to when she arrived, patient clinically stable will transfer patient out of ICU, patient has a history of peptic ulcer disease seen by GI recommending Protonix, will continue to monitor the patient will have a PT OT evaluate the patient and further recommendation to follow. Review of Systems Review of Systems: All systems reviewed & are unremarkable except as noted in HPI and below Exam Narrative: Patient is comfortable, NAD HEENT: eyes are clear and none icteric LUNGS: bilateral poor air entry with rhonchi and wheezing HEART: RR S1S2 ABD: BS+, Soft and nontender Lower extremities: no edema SKIN: nonjaundiced Neuro: grossly intact. Objective Data Vital Signs Vital Signs: Vital Signs - 24 hr 06/04/21 17:31 06/04/21 17:41 06/04/21 17:42 Temperature 97.8 F Pulse Rate 108 H 108 H 107 H Respiratory Rate 17 24 H Blood Pressure 140/83 140/83 Pulse Oximetry 99 99 100 06/04/21 18:01 06/04/21 18:13 06/04/21 18:20 Temperature Pulse Rate 107 H 108 H 100 Respiratory Rate 21 H 21 H 21 H Blood Pressure 102/76 Pulse Oximetry 98 06/04/21 18:31 06/04/21 18:46 06/04/21 19:01 Temperature Pulse Rate 102 H 100 104 H Respiratory Rate 20 23 H 20 Blood Pressure 103/63 95/63 L 91/64 L Pulse Oximetry 98 100 98 06/04/21 19:29 06/04/21 20:06 06/04/21 20:54 Temperature Pul
[2021-06-06] VITALS (10 sets, daily range): BP systolic 121–133; BP diastolic 58–75; PULSE 76–104; RESP 16–22; TEMP 36.4–36.7; O2SAT 92–100
[2021-06-06] MEDS: methylPREDNISolone SOD SUCC 125 MG VIAL 60 MG IV PUSH ×3 (06:18→21:15)
--- NOTE | 2021-06-06 09:04 | PCRCNOTE ---
PT. DOES NOT WANT BREATHING TX AT THIS TIME; STATES HER TELLS HER ONLY TO TAKE TXS WHEN HER BREATHING GETS BAD. WHEN COMES AROUND R.N. WILL ASK TO HAVE CHANGED TO PRN. PT. STATES SHE WILL CALL IF SHE NEEDS ONE.
[2021-06-06] MEDS: NICOTINE (*PBKC) 21 MG PATCH 1 PATCH TRANSDERM (09:28)
[2021-06-06] MEDS: ALPRAZolam (*CRX) 0.5 MG TABLET PO ×2 (09:29→16:55)
[2021-06-06] MEDS: buPROPion HCL 75 MG TABLET 150 MG PO ×2 (09:29→16:56)
[2021-06-06] MEDS: ROSUVASTATIN 10 MG TABLET 40 MG PO (09:29)
[2021-06-06] MEDS: CYANOCOBALAMIN 1,000 MCG TABLET 1000 MCG PO (09:30)
[2021-06-06] MEDS: POTASSIUM CHLORIDE 20 MEQ TABLET.ER 40 MEQ PO ×2 (09:30→16:57)
[2021-06-06] MEDS: BENZONATATE 100 MG CAPSULE 200 MG PO ×2 (09:30→23:56)
[2021-06-06] MEDS: CLOPIDOGREL BISULFATE 75 MG TABLET PO (09:31)
[2021-06-06] MEDS: ASPIRIN 81 MG ENTERIC TABLET PO (09:31)
[2021-06-06] MEDS: guaiFENesin 12 HR 600 MG TABCR PO ×2 (09:32→23:57)
[2021-06-06] MEDS: PANTOPRAZOLE 40 MG TABLET PO (09:32)
[2021-06-06] MEDS: FOLIC ACID 0.4 MG TABLET 0.8 MG PO (09:32)
[2021-06-06] MEDS: MAGNESIUM OXIDE 400 MG TABLET PO (09:32)
[2021-06-06] MEDS: IPRATROPIUM BR 0.02% INH SOLN 0.5 MG/2.5 ML VIAL INHALATION ×2 (12:41→19:35)
[2021-06-06] MEDS: ALBUTEROL SULFATE NEB 2.5 MG/0.5 ML INH INHALATION ×2 (12:41→19:35)
[2021-06-06 12:48] LABS: Hematocrit 34.2 % (37.0-47.0); Hemoglobin 11.4 g/dL (12.0-15.0); Mean Corpuscular HGB Conc 33.3 g/dl (32-36); Mean Corpuscular Hemoglobin 31.9 pg (26-34); Mean Corpuscular Volume 95.8 fl (80-100); Mean Platelet Volume 9.3 fl (7.4-10.4); Platelet Count Result 298 k/mm3 (150-375); Red Blood Count 3.57 M/mm3 (4.2-5.4); Red Cell Distribution Width 15.4 % (11.5-14.5); White Blood Count 15.4 K/mm3 (4.5-10.0)
[2021-06-06 13:00] LABS: Anion Gap 5 mmol/L (8-16); Blood Urea Nitrogen 25 mg/dL (7-17); Calcium 9.8 mg/dL (8.4-10.2); Carbon Dioxide 28 mmol/L (22-30); Chloride 102 mmol/L (98-107); Estimated CRCL calculation 36 ml/min; Estimated Glomerular Filt Rate 44; Glucose 126 mg/dL (65-110); Magnesium 2.5 mg/dL (1.6-2.3); Potassium 4.4 mmol/L (3.4-5.0); Sodium 135 mmol/L (137-145)
--- NOTE | 2021-06-06 14:33 | PM.IMPN ---
Progress Note: A&P Assessment and Plan (1) Acute exacerbation of chronic obstructive pulmonary disease: Code(s): J44.1 - Chronic obstructive pulmonary disease with (acute) exacerbation Status: Acute Assessment and Plan: Continue steroids, nebs Clincally improved. 06/06 Reduce IV methylprednisolone from 60 q 6h to 60mg q 12 hr D/w pt and Dr. Macario (latter by phone) 06/06 (2) Chronic respiratory failure with hypoxia: Code(s): J96.11 - Chronic respiratory failure with hypoxia Status: Acute Assessment and Plan: continue to monitor continue supplemental oxygen by nasal cannula (3) Tobacco abuse: Code(s): Z72.0 - Tobacco use Status: Acute Assessment and Plan: Quit smoking in 03/2021 Using nicotine patch (4) Diastolic heart failure: Code(s): I50.30 - Unspecified diastolic (congestive) heart failure Status: Acute Assessment and Plan: Clinically stable. continue spironolactone and lasix monitor intake and output daily (5) Peptic ulcer disease: Code(s): K27.9 - Peptic ulcer, site unspecified, unspecified as acute or chronic, without hemorrhage or perforation Status: Acute Assessment and Plan: Continue PPI Plan for f/u EGD 06/08 (6) CAD (coronary artery disease): Code(s): I25.10 - Atherosclerotic heart disease of [place] coronary artery without angina pectoris Status: Acute Assessment and Plan: Clinically stable (7) Stented coronary artery: Code(s): Z95.5 - Presence of coronary angioplasty implant and graft Status: Acute Assessment and Plan: Clincally stable (8) Chronic depression: Code(s): F32.9 - Major depressive disorder, single episode, unspecified Status: Acute Assessment and Plan: Continue bupropion Encouraged participation in outpatient CBT 06/06 as sleep is problematic, add low dose olanzapine 2.5mg at hs Subjective Date/time seen: 06/06/21 14:33 Interval history: Admitted 06/04 with SOB, COPD exacerbation. 06/06 visit: Breathing better. Less wheezing. Very anxious. No tears at this time but cries and gets angry easily. Eats small amounts several times per day. 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 Review of Systems Review of Systems: All systems reviewed & are unremarkable except as noted in HPI and below Exam Narrative: HEEENT: PERRL, sclerae nonicteric, pharyngeal mucosa pink and intact NECK: No JVD, adenopathy, or thyromegaly CHEST: DIMINISHED BS THROUGHOUT, INCR APD, MILD HYPERRROSONANCE Normal effort. HEART: NL S1/S2, regular, no murmur ABDOMEN: BS+, soft, nontender, no mass, no bruits EXTREMITIES: No cyanosis, edema, or clubbing NEUROLOGIC: CN intact and symmetric to inspection. MUSCULOSKELETAL: Tone and strength symmetric. PSYCH: Alert. Oriented to person, place, and time. Objective Data Vital Signs Vital Signs: Vital Signs - 24 hr 06/05/21 16:10 06/05/21 16:41 06/05/21 16:49 Temperature 97.6 F Pulse Rate 105 H 80 84 Respiratory Rate 18 18 18 Blood Pressure 138/75 Pulse Oximetry 100 06/05/21 20:00 06/05/21 20:33 06/05/21 20:47 Temperature Pulse Rate 86 89 Respiratory Rate 14 14 Blood Pressure Pulse Oximetry 92 06/05/21 22:00 06/05/21 23:13 06/05/21 23:29 Temperature 97.6 F Pulse Rate 105 H 74 79 Respiratory Rate 20 15 16 Blood Pressure 133/64 Pulse Oximetry 98 06/06/21 06:00 06/06/21 08:00 06/06/21 08:51 Temperature 97.7 F Pulse Rate 82 Respiratory Rate 20 Blood Pressure 121/58 L Pulse Oximetry 100 92 98 06/06/21 12:42 06/06/21 12:50 Temperature Pulse Rate 76 80 Respiratory Rate 16 16 Blood Pressure Pulse Oximetry Intake/Output Intake/Output: Intake & Output 06/03/21 06/04/21 06/05/21 06/06/21 23:59 23:59
[2021-06-06] MEDS: OLANZapine 2.5 MG TABLET PO (23:57)
[2021-06-07] VITALS (12 sets, daily range): BP systolic 97–141; BP diastolic 44–72; PULSE 73–95; RESP 16–22; TEMP 36.3–36.6; O2SAT 96–100
[2021-06-07 07:42] LABS: Hematocrit 31.9 % (37.0-47.0); Mean Corpuscular HGB Conc 31.3 g/dl (32-36); Mean Corpuscular Hemoglobin 30.6 pg (26-34); Mean Corpuscular Volume 97.6 fl (80-100); Mean Platelet Volume 9.3 fl (7.4-10.4); Platelet Count Result 249 k/mm3 (150-375); Red Blood Count 3.27 M/mm3 (4.2-5.4); Red Cell Distribution Width 15.9 % (11.5-14.5); White Blood Count 13.4 K/mm3 (4.5-10.0)
[2021-06-07 07:59] LABS: Anion Gap 6 mmol/L (8-16); Blood Urea Nitrogen 26 mg/dL (7-17); Calcium 8.9 mg/dL (8.4-10.2); Carbon Dioxide 24 mmol/L (22-30); Chloride 100 mmol/L (98-107); Estimated CRCL calculation 36 ml/min; Estimated Glomerular Filt Rate 44; Glucose 130 mg/dL (65-110); Potassium 4.8 mmol/L (3.4-5.0); Sodium 130 mmol/L (137-145)
[2021-06-07] MEDS: PANTOPRAZOLE 40 MG TABLET PO (08:05)
[2021-06-07] MEDS: ALBUTEROL SULFATE NEB 2.5 MG/0.5 ML INH INHALATION ×3 (09:15→20:42)
[2021-06-07] MEDS: IPRATROPIUM BR 0.02% INH SOLN 0.5 MG/2.5 ML VIAL INHALATION ×3 (09:16→20:42)
[2021-06-07] MEDS: POTASSIUM CHLORIDE 20 MEQ TABLET.ER 40 MEQ PO ×2 (09:59→17:16)
[2021-06-07] MEDS: DOCUSATE SODIUM 100 MG CAPSULE PO (10:00)
[2021-06-07] MEDS: guaiFENesin 12 HR 600 MG TABCR PO ×2 (10:00→21:56)
[2021-06-07] MEDS: MAGNESIUM OXIDE 400 MG TABLET PO (10:00)
[2021-06-07] MEDS: ROSUVASTATIN 10 MG TABLET 40 MG PO (10:00)
[2021-06-07] MEDS: FOLIC ACID 0.4 MG TABLET 0.8 MG PO (10:01)
[2021-06-07] MEDS: CLOPIDOGREL BISULFATE 75 MG TABLET PO (10:01)
[2021-06-07] MEDS: buPROPion HCL 75 MG TABLET 150 MG PO ×2 (10:01→17:17)
[2021-06-07] MEDS: CYANOCOBALAMIN 1,000 MCG TABLET 1000 MCG PO (10:01)
[2021-06-07] MEDS: ASPIRIN 81 MG ENTERIC TABLET PO (10:02)
[2021-06-07] MEDS: NICOTINE (*PBKC) 21 MG PATCH 1 PATCH TRANSDERM (10:02)
[2021-06-07] MEDS: methylPREDNISolone SOD SUCC 125 MG VIAL 60 MG IV PUSH ×2 (10:02→21:56)
[2021-06-07] MEDS: ALPRAZolam (*CRX) 0.5 MG TABLET PO ×2 (10:15→17:20)
[2021-06-07] MEDS: ONDANSETRON HCL ODT 4 MG TABLET PO (13:53)
--- NOTE | 2021-06-07 15:34 | PM.IMPN ---
Progress Note: A&P Assessment and Plan (1) Acute exacerbation of chronic obstructive pulmonary disease: Code(s): J44.1 - Chronic obstructive pulmonary disease with (acute) exacerbation Status: Acute Assessment and Plan: Continue steroids, nebs Clincally improved. 06/06 Reduce IV methylprednisolone from 60 q 6h to 60mg q 12 hr 06/07 Continue current therapy. (2) Chronic respiratory failure with hypoxia: Code(s): J96.11 - Chronic respiratory failure with hypoxia Status: Acute Assessment and Plan: continue to monitor continue supplemental oxygen by nasal cannula (3) Tobacco abuse: Code(s): Z72.0 - Tobacco use Status: Acute Assessment and Plan: Quit smoking in 03/2021 Using nicotine patch (4) Diastolic heart failure: Code(s): I50.30 - Unspecified diastolic (congestive) heart failure Status: Acute Assessment and Plan: Clinically stable. continue spironolactone and lasix monitor intake and output daily (5) Peptic ulcer disease: Code(s): K27.9 - Peptic ulcer, site unspecified, unspecified as acute or chronic, without hemorrhage or perforation Status: Acute Assessment and Plan: Continue PPI Multiple small feedings Plan for f/u EGD 06/08 (6) CAD (coronary artery disease): Code(s): I25.10 - Atherosclerotic heart disease of [place] coronary artery without angina pectoris Status: Acute Assessment and Plan: Clinically stable (7) Stented coronary artery: Code(s): Z95.5 - Presence of coronary angioplasty implant and graft Status: Acute Assessment and Plan: Clincally stable (8) Chronic depression: Code(s): F32.9 - Major depressive disorder, single episode, unspecified Status: Acute Assessment and Plan: Continue bupropion Encouraged participation in outpatient CBT 06/06 as sleep is problematic, add low dose olanzapine 2.5mg at hs Subjective Date/time seen: 06/07/21 15:34 Interval history: Admitted 06/04 with SOB, COPD exacerbation. 06/07 visit: Breathing better. Less wheezing. Continues to c/o abdominal bloating and discomfort. Worsened by food. To have f/u EGD 8/9 AM (per Dr. Nance and Dr. Macario). 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 Review of Systems Review of Systems: All systems reviewed & are unremarkable except as noted in HPI and below Exam Narrative: HEEENT: PERRL, sclerae nonicteric, pharyngeal mucosa pink and intact NECK: No JVD, adenopathy, or thyromegaly CHEST: DIMINISHED BS THROUGHOUT WITH ANT & POST EXPIRATORY WHEEZES AND PROLONGED EXPIRATORY PHASE, INCR APD HEART: NL S1/S2, regular, no murmur ABDOMEN: BS+, soft, nontender, no mass, no bruits EXTREMITIES: No cyanosis, edema, or clubbing NEUROLOGIC: CN intact and symmetric to inspection. MUSCULOSKELETAL: Tone and strength symmetric. PSYCH: Alert. Oriented to person, place, and time. Objective Data Vital Signs Vital Signs: Vital Signs - 24 hr 06/06/21 19:38 06/06/21 19:46 06/06/21 19:51 Temperature Pulse Rate 104 H 94 94 Respiratory Rate 16 16 16 Blood Pressure Pulse Oximetry 99 99 06/06/21 22:00 06/07/21 06:00 06/07/21 08:00 Temperature 98.0 F 97.3 F L Pulse Rate 104 H 82 95 Respiratory Rate 22 H 20 16 Blood Pressure 129/75 97/44 L Pulse Oximetry 95 100 96 06/07/21 09:18 06/07/21 09:23 06/07/21 09:26 Temperature Pulse Rate 86 95 Respiratory Rate 16 16 Blood Pressure Pulse Oximetry 96 06/07/21 14:00 06/07/21 14:28 06/07/21 14:30 Temperature 97.9 F Pulse Rate 73 89 Respiratory Rate 16 16 Blood Pressure 120/72 Pulse Oximetry 99 97 06/07/21 14:35 Temperature Pulse Rate 92 Respiratory Rate 16 Blood Pressure Pulse Oximetry Intake/Output Intake/Output: Intake & Output 08/0
[2021-06-07] MEDS: OLANZapine 2.5 MG TABLET PO (21:56)
[2021-06-08] VITALS (11 sets, daily range): BP systolic 102–159; BP diastolic 59–110; PULSE 60–102; RESP 16–28; TEMP 35.4–36.7; O2SAT 93–100
[2021-06-08 06:49] LABS: Hematocrit 35.2 % (37.0-47.0); Hemoglobin 11.1 g/dL (12.0-15.0); Mean Corpuscular HGB Conc 31.5 g/dl (32-36); Mean Corpuscular Hemoglobin 31.8 pg (26-34); Mean Corpuscular Volume 100.9 fl (80-100); Mean Platelet Volume 9.2 fl (7.4-10.4); Platelet Count Result 245 k/mm3 (150-375); Red Blood Count 3.49 M/mm3 (4.2-5.4); Red Cell Distribution Width 15.9 % (11.5-14.5)
[2021-06-08 07:09] LABS: Anion Gap 6 mmol/L (8-16); Blood Urea Nitrogen 25 mg/dL (7-17); Calcium 9.1 mg/dL (8.4-10.2); Carbon Dioxide 21 mmol/L (22-30); Chloride 105 mmol/L (98-107); Estimated CRCL calculation 36 ml/min; Estimated Glomerular Filt Rate 44; Glucose 137 mg/dL (65-110); Potassium 5.4 mmol/L (3.4-5.0); Sodium 132 mmol/L (137-145)
[2021-06-08] MEDS: IPRATROPIUM BR 0.02% INH SOLN 0.5 MG/2.5 ML VIAL INHALATION (08:26)
[2021-06-08] MEDS: ALBUTEROL SULFATE NEB 2.5 MG/0.5 ML INH INHALATION (08:26)
[2021-06-08] MEDS: PANTOPRAZOLE 40 MG TABLET PO (09:17)
[2021-06-08] MEDS: buPROPion HCL 75 MG TABLET 150 MG PO (09:17)
--- NOTE | 2021-06-08 11:09 | PC.NURSE ---
to GI lab per gonzalo. with patient
[2021-06-08] MEDS: LACTATED RINGERS 1,000 ML 150 ML IV CONT (11:25)
--- NOTE | 2021-06-08 11:26 | WPDANESEPPF ---
Anes - Initial Pre Proc Eval Procedure: Operation Date: 06/08/21 14:30 Proposed Procedures p Esophagogastroduodenoscopy - Bill Nance MD Date/Time: 06/08/21 11:26 Surgeon: Rosana Mendoza MD Pre Op Diagnosis: chest pain, COPD exacerbation, anxiety Patient Data Age: 75 Gender: F Height: 1.63 m Weight: 74.4 kg Last Vital Signs Temp 35.4 C L 06/08/21 11:20 Pulse 98 06/08/21 11:20 Resp 20 06/08/21 11:20 BP 102/84 06/08/21 11:20 Pulse Ox 96 06/08/21 11:20 Allergies Allergy/AdvReac Type Severity Reaction Status Date / Time atorvastatin Allergy Unknown leg cramps Verified 06/08/21 11:16 ezetimibe Allergy Unknown drowsiness Verified 06/08/21 11:16 fluticasone Allergy Unknown Asthma Verified 06/08/21 11:16 pravastatin Allergy Unknown leg cramps Verified 06/08/21 11:16 salmeterol [Advair Diskus] Allergy Unknown Asthma Verified 06/08/21 11:16 rosuvastatin AdvReac Unknown muscle Verified 06/08/21 11:16 cramps Home Medications Medication Instructions Recorded Confirmed Type aspirin [Adult Low Dose Aspirin] 81 mg PO DAILY 06/11/20 06/08/21 History albuterol sulfate [ProAir HFA] 2 inh INHALATION Q4H PRN 02/25/21 06/08/21 History clonidine HCl 0.1 mg PO HS 02/25/21 06/08/21 History clopidogrel 75 mg PO DAILY 02/25/21 06/08/21 History folic acid 800 mcg tablet 0.8 mg PO DAILY 04/20/21 06/08/21 History mecobalamin (vitamin B12) 1,000 1,000 mcg SUBLINGUAL DAILY 04/20/21 06/08/21 History mcg disintegrating tablet,sublingual potassium chloride 20 mEq 40 meq PO BID tablet 04/20/21 06/08/21 History tablet,extended release rosuvastatin 40 mg tablet 40 mg PO DAILY #90 tablet 04/20/21 06/08/21 Rx losartan 100 mg tablet 100 mg PO DAILY #90 tablet 04/24/21 06/08/21 Rx Breztri Aerosphere 2 inh INHALATION BID 04/25/21 06/08/21 History docusate sodium 100 mg PO Q12HR #60 cap 05/01/21 06/08/21 Rx magnesium oxide 400 mg PO QAM #30 tablet 05/01/21 06/08/21 Rx alprazolam 0.5 mg tablet 0.5 mg PO TID PRN #90 tablet 05/12/21 06/08/21 Rx bupropion HCl 75 mg tablet 150 mg PO BID #120 tablet 05/13/21 06/08/21 Rx famotidine 40 mg tablet 40 mg PO BID #180 tablet 05/13/21 06/08/21 Rx furosemide 40 mg tablet 60 mg PO BID #270 tablet 05/18/21 06/08/21 Rx albuterol sulfate 2.5 mg INHALATION Q6H PRN 06/05/21 06/08/21 History guaifenesin 600 mg PO BID PRN 06/05/21 06/08/21 History ipratropium bromide 0.5 mg INHALATION Q6H PRN 06/05/21 06/08/21 History ondansetron 4 mg TRANSLINGUAL Q8H PRN 06/05/21 06/08/21 History plecanatide [Trulance] 3 mg PO DAILY PRN 06/05/21 06/08/21 History spironolactone 50 mg PO BID 06/05/21 06/08/21 History Laboratory Tests 06/08/21 06/08/21 06:37 06:37 WBC 11.0 K/mm3 H K/mm3 (4.5-10.0) RBC 3.49 M/mm3 L M/mm3 (4.2-5.4) Hgb 11.1 g/dL L g/dL (12.0-15.0) Hct 35.2 % L % (37.0-47.0) MCV 100.9 fl H fl (80-100) MCH 31.8 pg pg (26-34) MCHC 31.5 g/dl L g/dl (32-36) RDW 15.9 % H % (11.5-14.5) Plt Count 245 k/mm3 k/mm3 (150-375) MPV 9.2 fl fl (7.4-10.4) Sodium 132 mmol/L L mmol/L (137-145) Potassium 5.4 mmol/L H mmol/L (3.4-5.0) Chloride 105 mmol/L mmol/L (98-107) Carbon Dioxide 21 mmol/L L mmol/L (22-30) Anion Gap 6 mmol/L L mmol/L (8-16) BUN 25 mg/dL H mg/dL (7-17) Creatinine 1.20 mg/dL H mg/dL (0.7-1.0) Estim Creat Clear Calc 36 ml/min ml/min Estimated GFR 44 L (59 - ) Glucose 137 mg/dL H mg/dL (65-110) Calcium 9.1 mg/dL mg/dL (8.4-10.2) Patient hx anesthesia problems: none Family hx anesthesia problems: none [facility] Past Medical History Medical History AAA (abdominal aortic aneurysm) Abdominal pain Anxiety BMI 28.0-28.9,adult BMI 29.0-29.9,adult CAD (coronary artery disease) Chronic depression Constipation COPD (chronic obstructive pulmonary d
[2021-06-08] MEDS: BENZOCAINE (*SP) 60 ML SPRAY CAN (HURRICAINE) 1 SPRAY MUCOUS MEM (12:03)
--- NOTE | 2021-06-08 13:36 | SUR.PHASEII ---
pt became very upset in postop after hearing results from dr gomes. pt crying, stating no one will listen to her, no one can found anything wrong with her and she wanted more answers. tried to reassure pt that having negative test results will rule out problems but she wanted definitive answers. spent several minutes with pt. bp was high but came back down to 140s over 80s prior to transfer. pulse ox remained in high 90s - 100 % on 2 liters of O2. pt taken back to floor, assisted her to bed. nurse rios came in room, updated report on pt. remains at bedside.
[2021-06-08] MEDS: ALPRAZolam (*CRX) 0.5 MG TABLET PO (13:39)
[2021-06-08] MEDS: methylPREDNISolone SOD SUCC 125 MG VIAL 60 MG IV PUSH (13:40)
[2021-06-08] MEDS: NICOTINE (*PBKC) 21 MG PATCH 1 PATCH TRANSDERM (13:40)
--- NOTE | 2021-06-08 14:55 | PM.DS ---
DS: Admitting Diagnosis Admitting Diagnosis Chief Complaint: shortness of breath DS: Discharge Diagnosis Discharge Diagnosis (1) Acute exacerbation of chronic obstructive pulmonary disease: Code(s): J44.1 - Chronic obstructive pulmonary disease with (acute) exacerbation Status: Acute Assessment and Plan: Continue steroids, nebs Clincally improved. 06/06 Reduce IV methylprednisolone from 60 q 6h to 60mg q 12 hr 06/07 Continue current therapy. (2) Chronic respiratory failure with hypoxia: Code(s): J96.11 - Chronic respiratory failure with hypoxia Status: Acute Assessment and Plan: continue to monitor continue supplemental oxygen by nasal cannula (3) Tobacco abuse: Code(s): Z72.0 - Tobacco use Status: Acute Assessment and Plan: Quit smoking in 03/2021 Using nicotine patch (4) Diastolic heart failure: Code(s): I50.30 - Unspecified diastolic (congestive) heart failure Status: Acute Assessment and Plan: Clinically stable. continue spironolactone and lasix monitor intake and output daily (5) Peptic ulcer disease: Code(s): K27.9 - Peptic ulcer, site unspecified, unspecified as acute or chronic, without hemorrhage or perforation Status: Acute Assessment and Plan: Continue PPI Multiple small feedings Plan for f/u EGD 06/08 (6) CAD (coronary artery disease): Code(s): I25.10 - Atherosclerotic heart disease of [place] coronary artery without angina pectoris Status: Acute Assessment and Plan: Clinically stable (7) Stented coronary artery: Code(s): Z95.5 - Presence of coronary angioplasty implant and graft Status: Acute Assessment and Plan: Clincally stable (8) Chronic depression: Code(s): F32.9 - Major depressive disorder, single episode, unspecified Status: Acute Assessment and Plan: Continue bupropion Encouraged participation in outpatient CBT 06/06 as sleep is problematic, add low dose olanzapine 2.5mg at hs DS: Summary Hospital Course Reason for hospitalization: Chief Complaint: shortness of breath Narrative: This is a 75-year-old female with past medical history significant for COPD /emphysema, hypertension, congestive heart failure, grade 1 diastolic dysfunction,dyslipidemia, coronary artery disease, Former tobacco use. She presented to the emergency room due to shortness of breath, chest tightness wheezing. She denies any fevers ,rigors ,chills. her she uses 2 L by nasal cannula of supplemental oxygen at home. In emergency room patient received a breathing treatments at the time of my visit she denied any discomfort. preliminary workup has been pretty much unrevealing. she had a prior admission to the hospital does in March where she was treated for worsening respiratory failure and discharged home. she denies any cough with sputum production or changes in phlegm and quality no fevers no rigors no chills. patient states that she always wheezes. Decision has been made to place the patient in observation. Hospital Course: Patient is discharged on 06/08/2021 patient with exacerbation of COPD being treated with Solu-Medrol and DuoNeb unfortunately patient is still smokes place the patient on nicotine patch, patient states feeling little better compared to when she arrived, patient clinically stable will transfer patient out of ICU, patient has a history of peptic ulcer disease seen by GI recommending Protonix, will continue to monitor the patient will have a PT OT evaluate the patient and further recommendation to follow. (2) Chronic respiratory failure with hypoxia: Patient remains clinically stable, her symptoms are improving and methylprednisone was tapered, seen by Dr. Craven suspect some of her symptoms are stemming from anxeity and recommended to change her medication, she discussed with her primary care. Status at Discharge Functional status at discharge: uses cane/walker
--- NOTE | 2021-06-08 15:17 | PM.CNPUL ---
Assessment and Plan Assessment and plan (1) Chronic respiratory failure with hypoxia: Code(s): J96.11 - Chronic respiratory failure with hypoxia Status: Acute Assessment and Plan: She has been on O2 since last year after stents, (2) COPD (chronic obstructive pulmonary disease): Qualifiers: COPD type: unspecified COPD Qualified Code(s): J44.9 - Chronic obstructive pulmonary disease, unspecified Code(s): J44.9 - Chronic obstructive pulmonary disease, unspecified Status: Acute Assessment and Plan: SHe has long standing COPD and chronic respiratory failure, COPD, is using nebulizer (3) Chronic depression: Code(s): F32.9 - Major depressive disorder, single episode, unspecified Status: Acute Assessment and Plan: I talked with Dr Macario about adding fluoxetine to her bupropion to treat depression and anxiety that is exacerbating her abdominal pain. He is going to do this after she is discharged, maybe at 10 mg a day. 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 I explained that abdominal pain is common and can increase with anxiety / depression. She has quite a bit. History of Present Illness History of Present Illness Consult date: 06/09/21 Requesting physician: Anjum Garcia MD Reason for consult: COPD Chief complaint: chest pain, COPD exacerbation, anxiety Narrative: NEW: Hetal Stone is a 75 year old female with COPD, chronic respiratory failure on O2 for a year, 2 L/min around the clock, 3 L/min with shortness of breath. She has CHF, history of polycythemia 6 years ago treated with phlebotomy Q 3 weeks x a year; has a 2 year history of constant left sided abdominal pain with extensive workup, had peptic ulcers in 2019, which have resolved. She was admitted She had an EGD today showing normal exam. She describes intense constant left sided abdominal pain that often works its way up her substernal area and around the left side of her chest causing increased shortness of breath and discomfort on the left chest. She has been worked up extensively, now un danita the care of Dr Macario who has seen her in t office once. 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 Lung cancer Mixed hyperlipidemia Nausea Obstructive sleep apnea 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 Personal history of nicotine dependence Polycythemia Systolic CHF Tobacco abuse Vitamin B12 deficiency Surgical History Surgical History History of appendectomy History of hysterectomy History of lobectomy of lung Stented coronary artery Social History Social History Smoking packs per day: 0.5 Smoking cigarettes per day: 10.0 Years smoked: 55 Smoking pack-years: 27.50 Smoking status: Former smoker Tobacco type: cigarettes Second hand tobacco smoke exposure: Yes Additional smoking assessment comments: She states she quit 1 month ago Alcohol intake: former Drinks per week: 1 Substance use: never Gender identity (if verbalized by the patient): Female Spiritual care concerns: No Meds Home Medications and Allergies Home Medicat
== END 2021-06-08 16:00 | disposition home health service (06) | DRG 191 ==
LOC: ANHED 20:17 → ANHICU 22:39 → ANH3MEDSUR 06-08 09:07 → ANHICU 06-10 13:52
PROVIDERS: Emergency Medicine; Internal Medicine; Internal Medicine Gastroenterology; Admitting Provider Internal Medicine; Emergency Provider General Practice; PCP Internal Medicine; Visit Provider Family Medicine
PROC: 0DJ08ZZ Inspection of Upper Intestinal Tract, Via Natural or Artificial Opening Endoscopic (ICD-10-PCS; CPT 43235; principal; 2021-06-08 14:30)
DX: J43.9 Emphysema, unspecified (principal); I50.30 Unspecified diastolic (congestive) heart failure; J96.11 Chronic respiratory failure with hypoxia; I11.0 Hypertensive heart disease with heart failure; K29.70 Gastritis, unspecified, without bleeding; K27.9 Peptic ulcer, site unspecified, unspecified as acute or chronic, without hemorrhage or perforation; K21.9 Gastro-esophageal reflux disease without esophagitis; Z99.81 Dependence on supplemental oxygen; F17.210 Nicotine dependence, cigarettes, uncomplicated; I25.10 Atherosclerotic heart disease of native coronary artery without angina pectoris; E78.2 Mixed hyperlipidemia; E87.6 Hypokalemia; G47.33 Obstructive sleep apnea (adult) (pediatric); K59.00 Constipation, unspecified; F41.8 Other specified anxiety disorders; F32.9 Major depressive disorder, single episode, unspecified; Z79.82 Long term (current) use of aspirin; Z79.899 Other long term (current) drug therapy; Z95.5 Presence of coronary angioplasty implant and graft
CPT/HCPCS: 36415; 71045; 80048; 80076; 83735; 83880; 84484; 85025; 85027; 85610; 85730; 87081; 93005; 94640; 96374; 96376; 99285; A9270; G0378; J2704; J2930; J7040; J7120

== ENCOUNTER 2021-07-30 11:36 | Outpatient (CLI) | payer MEDICARE, SELFPAY ==
[2021-07-30 12:11] LABS: Blood Urea Nitrogen 11 mg/dL (7-17)
[2021-07-30 12:22] LABS: Anion Gap 5 mmol/L (8-16); Calcium 9.7 mg/dL (8.4-10.2); Carbon Dioxide 34 mmol/L (22-30); Chloride 92 mmol/L (98-107); Estimated Glomerular Filt Rate 48; Glucose 104 mg/dL (65-110); Potassium 4.4 mmol/L (3.4-5.0); Sodium 131 mmol/L (137-145)
== END 2021-07-30 11:37 | disposition home or self-care (01) ==
LOC: ANHLAB 11:39
PROVIDERS: PCP Internal Medicine; Visit Provider Internal Medicine
DX: I10 Essential (primary) hypertension (principal); Z79.899 Other long term (current) drug therapy
CPT/HCPCS: 36415; 80048

== ENCOUNTER 2021-08-27 13:27 | Outpatient (CLI) | payer MEDICARE, SELFPAY ==
--- NOTE | 2021-08-28 08:33 | WPDPFTINT ---
PFT Procedure Performed PFT Procedure Performed Spirometry with Pre/Post Bronchodilator Plethysmography (Lung Vol) Diffusing Cap (DLCO) Flow Vol Loop PFT Interpretation This is a pulmonary function test with pre and post-bronchodilator spirometry, plethysmography and diffusing capacity. The test was performed and results interpreted in accordance with the 2019 and 2005 ATS/ERS Task Force guidelines respectively using the Global Lung Function Initiative-2012 reference equations. Patient demonstrated good effort and cooperation. Reproducibility criteria were met. The quality of the pre bronchodilator spirometry maneuver was Grade A and post bronchodilator spirometry maneuver was Grade A. of note the patient was on her 2 L nasal cannula oxygen continuously. Patient was very short of breath and had audible wheezing throughout the testing. Findings: Spirometry: There is decreased maximal expiratory airflow at all lung volumes with concave expiratory flow tracing. The contour the inspiratory flow tracing is normal. The pre bronchodilator FVC is 1.74 L, 68% predicted. The pre bronchodilator FEV1 is 0.61 L, 31% predicted. The FEV1: FVC ratio is 35%. The post bronchodilator FVC is 1.86 L, representing a 7% increase. The post bronchodilator FEV1 is 0.57 L, representing a 6% decrease. Plethysmography: The total lung capacity is 7.67 L, 156% predicted. the functional residual capacity is 6.39 L, 227% predicted. The residual volume is 5.93 L, 263% predicted. Diffusing capacity: The absolute diffusion capacity is 9.3, 48% predicted. Diffusing capacity corrected for alveolar volume is 2.69, 63% predicted. Impression: There is a very severe obstructive abnormality without significant improvement after inhaling a single dose of albuterol. The increase in residual volume is consistent with air trapping from an obstructive abnormality. Hyperinflation is present is demonstrated by the increase in functional residual capacity and total lung capacity and is consistent with an obstructive abnormality. The absolute diffusing capacity is moderately decreased and remains mildly decreased when corrected for alveolar volume. There are no prior studies for comparison
== END 2021-08-27 13:28 | disposition home or self-care (01) ==
LOC: ANHPFT 13:29
PROVIDERS: PCP Internal Medicine; Visit Provider Internal Medicine
DX: I27.20 Pulmonary hypertension, unspecified (principal); R94.2 Abnormal results of pulmonary function studies
CPT/HCPCS: 94060; 94726; 94729

== ENCOUNTER 2021-09-27 19:54 | Inpatient (IN) | payer MEDICARE, SELFPAY ==
--- NOTE | ~2021-09-27 | US_ITS ---
EXAMINATION: US retroperitoneal duplex ltd DATE: 10/02/2021 16:23 [facility]OROR[facility] MOTHER INDICATION: Acute renal insufficiency TECHNIQUE: Sonographic imaging of the kidneys was performed with a 3.5 MHz transducer. Retroperitone al duplex sonogram of the renal arteries also obtained. FINDINGS: No focal flow abnormalities are seen in the renal arteries on color Doppler. The peak syst olic velocity ranges of the right and left renal arteries and aorta are 128 cm per second, 123 cm per second, and 96 cm per second, respectively. The velocities and renal to aortic ratios are within nor mal limits. IMPRESSION: 1. No Doppler evidence of renal artery stenosis. Reviewed, dictated and finalized at location A. [facility]
--- NOTE | ~2021-09-27 | CT_ITS ---
EXAMINATION: CTA chest PE protocol EXAM DATE: 09/29/2021 09:46 INDICATION: R pleuritic chest pain. TECHNIQUE: Spiral CTA of the chest (pulmonary arteries) was performed with 100 cc Omnipaque 350 intr avenous contrast injection. Images were acquired during the pulmonary arterial phase. Coronal maxi mum intensity projection 3D-reconstructions were created by the technologist on dedicated workstation . Axial, coronal and sagittal reformatted images were reviewed. The dose-length product (DLP) for t his examination was 830.54 mGy-cm. The exposure was tailored according to patient size (auto mA exp osure control), and iterative reconstruction (ASIR) was used as additional dose reduction technique. Comparison is made to prior examination from 06/23/2020. FINDINGS: The main, central pulmonary arteries are dilated which can indicate elevated pulmonary vania rial pressure, pulmonary arterial hypertension. There are no pulmonary emboli in the 1st through 3rd order (central and interlobar) pulmonary arteries. Some loss of attenuation in the segmental pulmon shalini arteries from respiratory motion, some segmental regions not confidently evaluated. No intralumin al filling defects identified. There is descending thoracic aortic aneurysm above the hiatus which is difficult to measure due to it s tortuosity, but between 5 and 6 cm. This has demonstrated mild interval increase in size compared t o 06/23/2020, is large enough to consider vascular intervention. No thoracic aortic dissection. There is an aberrant right subclavian artery, congenital variant. There is moderate emphysema. No acute airspace disease. There are no pleural or pericardial effusions . Tracheobronchial tree is patent. There is no mediastinal, hilar or axillary lymphadenopathy. There is no pneumothorax. Heart normal in size. There is mild coronary arterial calcification, ar terial sclerosis. Small cyst in the liver medially. There is moderate thoracic spondylosis without osteoblastic or osteolytic lesions identified. IMPRESSION: 1. Limited segmental evaluation. No central pulmonary emboli. 2. Descending thoracic aortic aneurysm with mild interval increase in size suspected. Consider nonem ergent vascular consult. 3. Emphysema. Reviewed, dictated and finalized at location A. HER EARLY CHILDHOOD DEVELOPMENT IMPRESSION: 1. Limited segmental evaluation. No central pulmonary emboli. 2. Descending thoracic aortic aneurysm with mild interval increase in size noble pected. Consider nonemergent vascular consult. 3. Emphysema.
--- NOTE | ~2021-09-27 | XR_ITS ---
EXAMINATION: XR chest 1V portable DATE: 10/03/2021 12:06 INDICATION: Shortness of breath TECHNIQUE: frontal view of the chest was obtained. COMPARISON: Chest radiograph and CT dated 09/29/2021 FINDINGS: Volume loss the right hemithorax with elevation the right hemidiaphragm and suture lines at the later al right upper lung zone and at the right hilum consistent with prior partial right upper lobectomy. Unchanged mild bibasilar opacities and favor atelectasis over pneumonia. Small calcified nodules in t he left upper lung zone consistent with old granulomatous disease. The cardiomediastinal silhouette i s within normal limits for AP technique. Tortuous and atherosclerotic thoracic aorta. IMPRESSION: 1. No significant change in mild bibasilar atelectasis/scarring. 2. Postoperative change of prior partial right upper lobectomy. Reviewed, dictated and finalized at location A. ERY STOCK CLERK
--- NOTE | ~2021-09-27 | US_ITS ---
EXAMINATION: US art doppler w press LE BI DATE: 10/02/2021 16:08 INDICATION: Arterial occlusive disease. TECHNIQUE: Segmental pressures and plethysmographic and Doppler waveforms of the brachial and lower e xtremity arteries were obtained. COMPARISON: ABIs 06/25/2020 FINDINGS: Left brachial artery pressure is 145 mm Hg. The right brachial artery pressure was not measured. The right ankle-brachial index (GELA) is 0.65 (normal >= 0.9-1.0). The right great toe-brachial index (TBI) is 0.71 (normal >= 0.65). Arterial Doppler waveforms are biphasic from common femoral artery to the ankle. The left GELA is 0.42. The left TBI is 0.86. Arterial Doppler waveforms are biphasic from common femor al artery to the ankle. IMPRESSION: 1. Moderately decreased right GELA and severely decreased left GELA, consistent with arterial occlusive disease, worsened from 06/25/2020. Reviewed, dictated and finalized at location A. LABORER IMPRESSION: 1. Moderately decreased right GELA and severely decreased left GELA, consistent w ith arterial occlusive disease, worsened from 06/25/2020.
--- NOTE | ~2021-09-27 | XR_ITS ---
XR chest 1V portable 09/29/2021 00:35 Indication: Right pleuritic chest pain Procedure: AP portable chest Comparison: Comparison to multiple prior studies sequentially, with oldest reviewed study dated 04/25. Findings: Chronic surgical changes of the right thorax, consistent with partial pneumonectomy. There is chronic scarring of the right lung base. No acute focal pneumonia, edema, effusion or pneumothorax . Heart size is normal. There is atherosclerosis. Impression: 1: No acute cardiopulmonary disease. No significant interval change allowing for differences of techn ique. Reviewed, dictated and finalized at location D. R HAND Impression: 1: No acute cardiopulmonary disease. No significant interval change allowing fo r differences of technique.
--- NOTE | ~2021-09-27 | US_ITS ---
EXAMINATION: US renal BI EXAM DATE: 09/30/2021 12:42 INDICATION: Acute kidney insufficiency. TECHNIQUE: Multiple grayscale and Doppler images of the kidneys were obtained (by a technologist who performed the scan) and subsequently reviewed. Comparison is made to prior examination from 08/02/2015 . FINDINGS: Right kidney: There is normal contour and echogenicity. It measures 9.3 x 4.1 x 5.7 centimeters. Th ere are no focal renal lesions identified. There is no hydronephrosis. Left kidney: There is normal contour and echogenicity. It measures 10.0 x 5.1 x 5.5 centimeters. Th ere are no focal renal lesions identified. There is no hydronephrosis. Bladder unremarkable. IMPRESSION: 1. Sonographically unremarkable kidneys. Reviewed, dictated and finalized at location A. POND OPERATOR
--- NOTE | ~2021-09-27 | US_ITS ---
EXAMINATION:US venous doppler LE BI INDICATION:Leg pain and edema TECHNIQUE: Multiple grayscale, color flow and Doppler images of the right and left lower extremity de ep venous systems were obtained and reviewed. COMPARISON:04/20/2021 FINDINGS: The common femoral, superficial femoral and popliteal veins demonstrate normal respiratory variation, augmentation and compressibility. Color flow is also seen within the posterior tibial, pe roneal, greater saphenous and profunda veins. IMPRESSION: 1: No lower extremity deep venous thrombosis. Reviewed, dictated and finalized at location A. THOLOGY TEACHER
--- NOTE | ~2021-09-27 | CT_ITS ---
EXAMINATION: CT brain wo con EXAM DATE: 10/05/2021 15:04 INDICATION: Right lower extremity weakness. TECHNIQUE: Spiral CT of the head was performed without contrast. Axial, coronal and sagittal images were reviewed. The dose-length product (DLP) for this examination was 681.00 mGy-cm. The exposure w as tailored according to patient size, and iterative reconstruction (ASIR) was used as additional dos e reduction technique. There is no prior study for comparison. FINDINGS: There is no acute intraparenchymal hemorrhage. No evidence of intraparenchymal brain mass lesion. No evidence of acute infarction. Please note that initial head CT has limited sensitivity f or small or acute infarctions. There is moderate periventricular and subcortical hypodensity, nonspe cific but probably related to small vessel ischemic disease. There is moderate prominence of the lopez lci and ventricles related to cerebral atrophy. There is intracranial carotid arteriosclerosis. Th ere are no extra-axial collections. There is no mass effect or midline shift. Patient has had bilat eral ocular lens surgery. Soft tissue is unremarkable. The visualized sinuses and mastoid air cells are well aerated. IMPRESSION: 1. No acute intracranial findings. 2. Chronic age related findings. Reviewed, dictated and finalized at location A. ENT AMBASSADOR
--- NOTE | ~2021-09-27 | XR_ITS ---
XR chest 1V portable 09/27/2021 20:42 Indication: Shortness of breath and wheezing. COPD. CHF. Lung cancer. Procedure: AP portable chest Comparison: Comparison to multiple prior studies sequentially, with oldest reviewed study dated 04/18. Findings: There are surgical changes of partial right pneumonectomy. Chronic blunting right lateral c ostophrenic recess. Heart size normal. No focal air space disease, pulmonary edema, pleural effusion or suspected pneumothorax. Impression: 1: No acute cardiopulmonary disease. Reviewed, dictated and finalized at location A. AL CLERK Impression: 1: No acute cardiopulmonary disease.
[2021-09-27 19:53] VITALS: BP 150/97; PULSE 98; RESP 22; O2SAT 96
[2021-09-27 20:00] VITALS: O2SAT 97
--- NOTE | 2021-09-27 20:01 | ECG_ITS ---
Measurements Intervals [place] Rate: 95 P: 65 [place]: 177 QRS: -14 QRSD: 126 T: 118 QT: 351 QTc: 442 Interpretive Statements SINUS RHYTHM VENTRICULAR PREMATURE COMPLEXES POSSIBLE LEFT ATRIAL ENLARGEMENT LEFT BUNDLE BRANCH BLOCK ANTEROSEPTAL INFARCT OR DUE TO LBBB BASELINE ARTIFACT- V1-V2 ABNORMAL ECG Electronically Signed On 09-28-2021 6:52:44 CAN PILER by Todd Sam D.O.
--- NOTE | 2021-09-27 20:02 | ECG_ITS ---
Measurements Intervals [place] Rate: 91 P: 12 [place]: 140 QRS: 75 QRSD: 129 T: -58 QT: 374 QTc: 461 Interpretive Statements SINUS RHYTHM VENTRICULAR TRIGEMINY LEFT BUNDLE BRANCH BLOCK ANTEROSEPTAL INFARCT OR DUE TO LBBB BASELINE ARTIFACT- V2-V6 ABNORMAL ECG Electronically Signed On 09-28-2021 6:51:07 ATTENDING RADIOLOGIST by Todd Sam D.O.
[2021-09-27] MEDS: ALBUTEROL SULFATE NEB 2.5 MG/0.5 ML INH 15 MG INHALATION (20:11)
[2021-09-27] MEDS: IPRATROPIUM BR 0.02% INH SOLN 0.5 MG/2.5 ML VIAL 1.5 MG INHALATION (20:12)
[2021-09-27 20:16] LABS: Basophils Percent Auto 0.5 % (0.2-1.2); Eosinophils Percent Auto 0.3 % (0-4.4); Hematocrit 44.8 % (37.0-47.0); Hemoglobin 15.6 g/dL (12.0-15.0); Immature Granulocyte Absolute 0.05 K/mm3 (0.00-0.031); Immature Granulocyte Percent A 0.6 % (0-0.5); Lymphocytes Absolute Auto 1.09 K/mm3 (0.9-3.2); Lymphocytes Percent Auto 13.9 % (18.3-44.2); Mean Corpuscular HGB Conc 34.8 g/dl (32-36); Mean Corpuscular Hemoglobin 32.2 pg (26-34); Mean Corpuscular Volume 92.4 fl (80-100); Mean Platelet Volume 9.4 fl (7.4-10.4); Monocytes Percent Auto 12.5 % (2.6-8.5); Neutrophils Absolute Auto 5.7 K/mm3 (1.3-6.7); Neutrophils Percent Auto 72.2 % (45.5-73.1); Platelet Count Result 220 k/mm3 (150-375); Red Blood Count 4.85 M/mm3 (4.2-5.4); Red Cell Distribution Width 13.7 % (11.5-14.5); White Blood Count 7.8 K/mm3 (4.5-10.0)
[2021-09-27 20:19] VITALS: PULSE 97; RESP 24
[2021-09-27 20:53] LABS: Alanine Aminotransferase 22 U/L (4-35); Albumin Level 4.3 g/dL (3.5-5.1); Alkaline Phosphatase 95 U/L (38-126); Anion Gap 6 mmol/L (8-16); Aspartate Amino Transferase 35 U/L (14-36); Blood Urea Nitrogen 9 mg/dL (7-17); Calcium 9.6 mg/dL (8.4-10.2); Carbon Dioxide 28 mmol/L (22-30); Chloride 88 mmol/L (98-107); Estimated CRCL calculation 65 ml/min; Estimated Glomerular Filt Rate > 60; Glucose 109 mg/dL (65-110); Potassium 4.5 mmol/L (3.4-5.0); Sodium 122 mmol/L (137-145)
[2021-09-27 21:02] LABS: NT Pro B Type Natriuretic Pept 331 pg/mL (5-100)
--- NOTE | 2021-09-27 21:53 | ED.SOB ---
HPI - SOB/Dyspnea General Chief Complaint: Shortness of Breath/Dyspnea Stated Complaint: DIFFICULTY BREATHING Time Seen by Provider: 09/27/21 19:54 History of Present Illness HPI Narrative: Patient is a 76-year-old female who presents ER with shortness of breath. Has chronic shortness of breath related to COPD and wears 3 L of oxygen at baseline. Over the last 2 weeks she has had more difficulty breathing. She has been using nebulizers without improvement. EMS came out to her house a few days ago and help stabilize her but she was worsening today and came in. No fevers or chills. Reports persistent cough that is worsening. No nausea or vomiting. Related Data Home Medications Medication Instructions Recorded Confirmed aspirin [Adult Low Dose Aspirin] 81 mg PO DAILY 06/11/20 07/31/21 albuterol sulfate [ProAir HFA] 2 inh INHALATION Q4H PRN 02/25/21 07/31/21 clopidogrel 75 mg PO DAILY 02/25/21 07/31/21 folic acid 800 mcg tablet 0.8 mg PO DAILY 04/20/21 07/31/21 mecobalamin (vitamin B12) 1,000 1,000 mcg SUBLINGUAL DAILY 04/20/21 07/31/21 mcg disintegrating tablet,sublingual potassium chloride 20 mEq 40 meq PO BID tablet 04/20/21 07/31/21 tablet,extended release Trulance 3 mg PO DAILY PRN 06/05/21 07/31/21 albuterol sulfate 2.5 mg INHALATION Q6H PRN 06/05/21 07/31/21 ipratropium bromide 0.5 mg INHALATION Q6H PRN 06/05/21 07/31/21 ondansetron 4 mg TRANSLINGUAL Q8H PRN 06/05/21 07/31/21 spironolactone 50 mg PO BID 06/05/21 07/31/21 Allergies Allergy/AdvReac Type Severity Reaction Status Date / Time atorvastatin Allergy Unknown leg cramps Verified 07/30/21 10:58 ezetimibe Allergy Unknown drowsiness Verified 07/30/21 10:58 fluticasone Allergy Unknown Asthma Verified 07/30/21 10:58 pravastatin Allergy Unknown leg cramps Verified 07/30/21 10:58 salmeterol [Advair Diskus] Allergy Unknown Asthma Verified 07/30/21 10:58 rosuvastatin AdvReac Unknown muscle Verified 07/30/21 10:58 cramps Review of Systems Review of Systems: All systems reviewed & are unremarkable except as noted in HPI and below Constitutional: Constitutional: Denies chills, Denies fever(s) and Denies weakness ENT: Denies nasal congestion and Denies sore throat Cardiovascular: Cardiovascular: Denies chest pain, Denies rapid heart rate and Denies radiating jaw, neck or arm pain Respiratory: Respiratory: Denies chest congestion, Reports cough, Reports dyspnea and Reports wheezing Gastrointestinal: Gastrointestinal: Denies abdominal pain, Denies nausea and Denies vomiting [facility] Past Medical History Medical History AAA (abdominal aortic aneurysm) Abdominal pain Anxiety ASHD (arteriosclerotic heart disease) Benign essential hypertension BMI 27.0-27.9,adult BMI 28.0-28.9,adult BMI 29.0-29.9,adult CAD (coronary artery disease) Chronic depression Constipation COPD (chronic obstructive pulmonary disease) emphysema Depression Edema Elevated glucose Encounter to establish care Family history of diabetes mellitus Fatigue GERD (gastroesophageal reflux disease) History of gastric ulcer History of lung cancer History of tobacco abuse Hospital discharge follow-up Hypersomnia Hypertension Hypoxia IBS (irritable bowel syndrome) retirement current use of therapeutic drug Lung cancer Mixed hyperlipidemia Nausea Need for influenza vaccination Obstructive sleep apnea 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
[2021-09-27 22:10] VITALS: PULSE 106; RESP 24
--- NOTE | 2021-09-27 22:37 | PM.IMHP ---
H&P: HPI History of Present Illness Date/Time: 09/27/21 22:37 Chief Complaint: Shortness of breath Narrative: This is a 76-year-old female with past medical history significant for COPD patient with severe obstructive disease sees on 2 L of oxygen by nasal cannula continuous. Patient presented to the emergency room due to worsening shortness of breath increasingly progressive in the last 3 days or so had been increasing her usual oxygen to 6 L and was much worse with activity like walking to her bathroom walking short distances within the house she has also noticed no change in her sputum states that is about the same amount and is of whitish phlegm. She denies any rigors, any chills, any fevers, any nausea, vomiting,abdominal pain or diarrhea, no leg swelling, she has had a persistent cough as well and out evil wheezing however patient states that she always has audible wheezing she was recently started on a new medication Trelegy Ellipta but states that so far no changes. Preliminary workup was significant for chest x-ray showed no acute cardiopulmonary abnormality. Patient has been admitted for further management assessment and treatment. Review of Systems Review of Systems: Worsening shortness of breath, increase oxygen supplementation by nasal cannula, persistent cough ,audible wheezing, decreased stamina, fatigue, worse with minimal exertion. Constitutional: Constitutional: Denies chills, Denies fatigue, Denies fever(s) and Denies weakness Eyes: Eyes: Denies change in vision ENT: Denies dysphagia, Denies nasal congestion, Denies nasal discharge, Reports nasal obstruction (Left-sided) and Denies odynophagia Cardiovascular: Cardiovascular: Denies chest pain, Denies irregular heart rhythm, Denies claudication, Denies leg ulcers, Denies leg edema, Denies lightheadedness, Denies radiating jaw, neck or arm pain and Denies palpitations Respiratory: Respiratory: Denies change in phlegm color, Reports cough, Denies excessive phlegm production, Reports dyspnea, Reports dyspnea on exertion and Reports wheezing Gastrointestinal: Gastrointestinal: Denies abdominal pain, Denies dyspepsia, Denies heartburn, Denies diarrhea, Denies nausea and Denies vomiting Genitourinary: Genitourinary: Denies dysuria Musculoskeletal: Musculoskeletal: Denies arthralgias, Denies joint swelling and Denies muscle weakness Integumentary/Breasts: Skin/Breast: Denies rash Neurologic: Denies focal weakness and Denies Sensory deficit (Neuro) Psychiatric: Psychiatric: Reports no additional psychiatric complaints and Reports as per HPI Endocrine: Endocrine: Reports no additional endocrine complaints and Reports as per HPI Hematologic/Lymphatic: Hematologic/Lymphatic: Reports no additional hematologic/lymphatic complaints and Reports as per HPI [facility] Past Medical History Medical History AAA (abdominal aortic aneurysm) Abdominal pain Anxiety ASHD (arteriosclerotic heart disease) Benign essential hypertension BMI 27.0-27.9,adult BMI 28.0-28.9,adult BMI 29.0-29.9,adult CAD (coronary artery disease) Chronic depression Constipation COPD (chronic obstructive pulmonary disease) emphysema Depression Edema Elevated glucose Encounter to establish care Family history of diabetes mellitus Fatigue GERD (gastroesophageal reflux disease) History of gastric ulcer History of lung cancer History of tobacco abuse Hospital discharge follow-up Hypersomnia Hypertension Hypoxia IBS (irritable bowel syndrome) snf current use of therapeutic drug Lung cancer Mixed hyperlipidemia Nausea Need for influenza vaccination Obstructive sleep apnea On residential drug therapy Personal history of nicotine dependence Polycythemia Pulmonary hypertension Systolic CHF Tobacco abuse Vitamin B12 deficiency Weakness Surgical History Surgical History History of appendectomy
[2021-09-28] VITALS (17 sets, daily range): BP systolic 116–152; BP diastolic 46–73; PULSE 73–97; RESP 18–22; TEMP 35.9–36.3; O2SAT 93–99; BMI 29.5
--- NOTE | 2021-09-28 01:06 | PC.NURSE ---
This patient, Hetal Stone, was admitted to 3 Med Surg Room 322-01 @ 0105. Patient/family oriented to hospital policies and general routines including ID bracelet, bed and alarms, visiting hours, pain management, procedures, bathroom and other care routines, personal items, smoking policy, room service/diet, and visiting hours. Information on how to activate the Rapid Response Team has been discussed. Patient/Family are encouraged to report perceived risks to care and to ask questions if they do not understand what they are told or what they should do.
[2021-09-28] MEDS: HYDROcodone/acetaminophen (*CRX) 5-325 MG TABLET 1 TAB PO (02:23)
[2021-09-28] MEDS: methylPREDNISolone SOD SUCC 125 MG VIAL 60 MG IV PUSH ×4 (02:23→17:00)
--- NOTE | 2021-09-28 03:07 | PCRCNOTE ---
pt refusing UPD stating that her headache is too bad to take the treatment currently. therapist reminded pt of PRN order and told pt to call nurse if she needed treatment in the near future.
--- NOTE | 2021-09-28 03:40 | PHAR ---
KIANA LOTT D/C XOPENEX ALBUTEROL NEB Q4H JOSE. ALBUTEROL MDI [id number] D/[facility]
[2021-09-28] MEDS: ONDANSETRON INJ 4 MG/2 ML VIAL IV PUSH (06:09)
[2021-09-28] MEDS: MORPHINE SULFATE (*CRX) 4 MG/ML INJ IV PUSH ×3 (06:09→21:42)
[2021-09-28] MEDS: ENOXAPARIN 40 MG/0.4 ML SYRINGE SUB-Q (08:28)
[2021-09-28] MEDS: FLUTICASONE/UMECLIDIN/VILANTER 200-62.5-25 MCG ELLIPTA 1 PUFF INHALATION (08:28)
[2021-09-28] MEDS: NICOTINE (*PBKC) 21 MG PATCH 1 PATCH TRANSDERM (08:29)
[2021-09-28] MEDS: CLOPIDOGREL BISULFATE 75 MG TABLET PO (08:29)
[2021-09-28] MEDS: LOSARTAN POTASSIUM 100 MG TABLET PO (08:29)
[2021-09-28] MEDS: buPROPion HCL 75 MG TABLET 150 MG PO ×2 (08:30→21:47)
[2021-09-28] MEDS: ROSUVASTATIN 10 MG TABLET 40 MG PO (08:30)
[2021-09-28] MEDS: ALBUTEROL SULFATE NEB 2.5 MG/3 ML INH INHALATION ×5 (08:48→20:56)
--- NOTE | 2021-09-28 12:56 | PM.IMPN ---
Progress Note: A&P Assessment and Plan (1) Acute and chronic respiratory failure with hypoxia: Code(s): J96.21 - Acute and chronic respiratory failure with hypoxia Status: Acute Assessment and Plan: Patient with chronic respiratory on 2-3L at rest and up to 4L with exertion. She presents with SOB with ABG 7.44/50/88 on BiPAP. She had elevated carboxyhemo 3.9%. She said she no longer smokes since March. She has been weaned to 2.5L but still wheezing and without the sense of improvement. Will continue Albuterol, Trelegy and Daliresp. Continue Solu-Medrol. Pulmonary consult. (2) COPD exacerbation: Code(s): J44.1 - Chronic obstructive pulmonary disease with (acute) exacerbation Status: Acute Assessment and Plan: As above. PFTs in July 2021 showing very severe obstructive abnormality without significant improvement after inhaling a single dose of albuterol. Probably nearing end-stage. Continue Albuterol, Trelegy, Daliresp and Solu-Medrol. (3) Hyponatremia: Code(s): E87.1 - Hypo-osmolality and hyponatremia Status: Acute Assessment and Plan: Sodium 122 on admission. Repeat now and check urine Na. Suspect SIADH from her lung disease but consider from dehydration (4) Obstructive sleep apnea: Code(s): G47.33 - Obstructive sleep apnea (adult) (pediatric) Status: Acute Assessment and Plan: Patient denies that she has obstructive sleep apnea. (5) Polycythemia: Code(s): D75.1 - Secondary polycythemia Status: Acute Assessment and Plan: Patient has chronic polycythemia. She has been told it related to chronic hypoxia from her COPD. Hemoglobin is Fifteen. Continue to monitor. (6) AAA (abdominal aortic aneurysm): Qualifiers: Presence of rupture: without rupture Qualified Code(s): I71.4 - Abdominal aortic aneurysm, without rupture Code(s): I71.4 - Abdominal aortic aneurysm, without rupture Status: Acute Assessment and Plan: Noted to have AAA. CTA abd and LE Oct 2020 showing a 5.2 x 3.8 cm fusiform aneurysm of the distal descending thoracic aorta and a 3.3 x 2.8 cm fusiform infrarenal abdominal aortic aneurysm. She also has PAD with CTA showing: -- moderate stenosis of the bilateral external iliac arteries and mild stenosis of the bilateral internal iliac arteries. -- moderate stenosis in the Right superficial femoral artery. The popliteal artery and tibioperoneal trunk demonstrate calcified atherosclerosis without significant stenosis. There is a three-vessel runoff at the ankle. -- there is a 10 cm occluded segment of the Left mid superficial femoral artery. The popliteal artery and tibial peroneal trunk demonstrate calcified atherosclerosis without significant stenosis. There is a three-vessel runoff at the ankle. Continue Plavix/ASA. No smoking is imperative. Contiue Crestor. (7) GERD (gastroesophageal reflux disease): Qualifiers: Esophagitis presence: esophagitis presence not specified Qualified Code(s): K21.9 - Gastro-esophageal reflux disease without esophagitis Code(s): K21.9 - Gastro-esophageal reflux disease without esophagitis Status: Acute Assessment and Plan: She is having bloating which is probably inhibiting diaphragmatic excursion resulting in SOB. Start PPI (8) Tobacco abuse: Code(s): Z72.0 - Tobacco use Status: Acute Assessment and Plan: Patient states she quit tobacco in March 2021. Nicotine patch available. (9) DVT prophylaxis: Code(s): Z29.9 - Encounter for prophylactic measures, unspecified Status: Acute Assessment and Plan: Lovenox Subjective Date/time seen: 09/28/21 12:56 Interval history: 76yo female with COPD and chronic respiratory failure here for increasing SOB. Assuming care. Chart reviewed. She does no feel much better. She has many complaints. She complains of left nares congested that
[2021-09-28 15:39] LABS: Sodium 119 mmol/L (137-145)
[2021-09-28] MEDS: ALPRAZolam (*CRX) 0.5 MG TABLET PO ×2 (15:49→21:42)
--- NOTE | 2021-09-28 15:53 | PM.CNPUL ---
Assessment and Plan Assessment and plan (1) COPD exacerbation: Code(s): J44.1 - Chronic obstructive pulmonary disease with (acute) exacerbation Status: Acute Assessment and Plan: 76-year-old female with a history of very severe COPD chronic hypoxemic respiratory failure on supplemental oxygen, history of frequent COPD exacerbations, is being treated for another exacerbation. Patient stated that breathing seems to be getting better. She is on appropriate treatment; I would continue with current regimen, consisting of IV steroids, short-acting bronchodilators and her maintenance bronchodilators. Continue DVT prophylaxis, out of bed to chair. (2) Oxygen dependent: Code(s): Z99.81 - Dependence on supplemental oxygen Status: Acute (3) History of tobacco abuse: Code(s): Z87.891 - Personal history of nicotine dependence Status: Acute (4) Chronic respiratory failure with hypoxia: Code(s): J96.11 - Chronic respiratory failure with hypoxia Status: Acute (5) Acute and chronic respiratory failure with hypoxia: Code(s): J96.21 - Acute and chronic respiratory failure with hypoxia Status: Acute (6) History of lung cancer: Code(s): Z85.118 - Personal history of other malignant neoplasm of bronchus and lung Status: Acute History of Present Illness History of Present Illness Consult date: 09/28/21 Chief complaint: COPD Exacerbation Narrative: this 76-year-old female presented with 1 week of progressively increasing shortness of breath the patient has history of COPD and chronic hypoxemic respiratory failure on supplemental oxygen 2 liters/minute. She was in her usual state of health until approximately 1 week ago when she started having cough productive of clear sputum and shortness of breath along with wheezing. Shortness of breast progressively increased over the ensuing days and patient was brought into the emergency room. She denied having fever chills hemoptysis chest pain palpitations or lower extremity edema. Her past medical history significant for lung resection surgery 1986 for cancer. She has been on Trelegy short-acting bronchodilators and Daliresp. She has had approximately 2-3 COPD exacerbations over the last year. She quit smoking in March of 2021. Pulmonary function testing 1 month ago showed FEV1 of 0.61 L or 31% predicted FEV1 to FVC ratio 35%, with evidence of hyperinflation and air trapping on lung volumes and severely reduced lung diffusion capacity 48% predicted. She had no response to bronchodilators. Review of Systems Review of Systems: patient reports no significant weight changes. She has some eye problems for which she is seeing nothing maladies. She sleeps on 3 pillows at night. She has no acid reflux disease. She denied having nausea vomiting diarrhea constipation or abdominal pain. She has no urinary complaints. She has been complaining of knee and left elbow pain. She has history of lower extremity edema and has been on a diuretic. She has history of depression. She was treated in the past for polycythemia with frequent venesections. The remainder of the 12 point system review is negative. [facility] Past Medical History Medical History AAA (abdominal aortic aneurysm) Abdominal pain Anxiety ASHD (arteriosclerotic heart disease) Benign essential hypertension BMI 27.0-27.9,adult BMI 28.0-28.9,adult BMI 29.0-29.9,adult CAD (coronary artery disease) Chronic depression Constipation COPD (chronic obstructive pulmonary disease) emphysema Depression Edema Elevated glucose Encounter to establish care Family history of diabetes mellitus Fatigue GERD (gastroesophageal reflux disease) History of gastric ulcer History of lung cancer History of tobacco abuse Hospital discharge follow-up Hypersomnia Hypertension Hypoxia IBS (irritable bowel syndrome) jail current use of thera
[2021-09-28 18:39] LABS: Creatinine Urine 221.7 mg/dL
[2021-09-28 18:40] LABS: Sodium Urine Random 6 meq/L
[2021-09-28] MEDS: SODIUM CHLORIDE 0.9% IV 1,000 ML 70 ML IV CONT (18:59)
[2021-09-28 20:02] LABS: Sodium 117 mmol/L (137-145)
--- NOTE | 2021-09-28 21:01 | PCRCNOTE ---
Pt states they do not woke up for treatments. they say they do not sleep good so when they actually sleep they do not woke up for treatments.
[2021-09-28] MEDS: BENZONATATE 100 MG CAPSULE 200 MG PO (21:47)
[2021-09-29] VITALS (11 sets, daily range): BP systolic 102–129; BP diastolic 55–65; PULSE 76–92; RESP 16–20; TEMP 35.8–36.2; O2SAT 91–96
[2021-09-29] MEDS: methylPREDNISolone SOD SUCC 125 MG VIAL 60 MG IV PUSH ×4 (00:17→20:00)
[2021-09-29 02:06] LABS: Sodium 120 mmol/L (137-145)
[2021-09-29] MEDS: FUROSEMIDE INJ 40 MG/4 ML VIAL 20 MG IV PUSH (02:36)
[2021-09-29] MEDS: MORPHINE SULFATE (*CRX) 4 MG/ML INJ IV PUSH ×6 (02:36→19:56)
[2021-09-29] MEDS: LEVALBUTEROL NEB 1.25 MG/3 ML 0.63 MG INHALATION ×3 (03:50→20:41)
[2021-09-29 07:36] LABS: Albumin Level 4.7 g/dL (3.5-5.1); Anion Gap 11 mmol/L (8-16); Blood Urea Nitrogen 30 mg/dL (7-17); Calcium 9.7 mg/dL (8.4-10.2); Carbon Dioxide 25 mmol/L (22-30); Chloride 84 mmol/L (98-107); Estimated CRCL calculation 46 ml/min; Estimated Glomerular Filt Rate 54; Glucose 153 mg/dL (65-110); Phosphorus 5.2 mg/dL (2.5-4.5); Potassium 4.5 mmol/L (3.4-5.0); Sodium 120 mmol/L (137-145)
--- NOTE | 2021-09-29 08:10 | PM.PNPUL ---
Subjective Date/time seen: 09/29/21 08:10 Objective Data Vital Signs Vital Signs: Vital Signs - 24 hr 09/28/21 08:49 09/28/21 08:50 09/28/21 08:55 Temperature Pulse Rate 88 91 Respiratory Rate 20 22 H Blood Pressure Pulse Oximetry 96 09/28/21 14:00 09/28/21 14:13 09/28/21 14:20 Temperature 36.3 C L Pulse Rate 73 85 88 Respiratory Rate 20 20 20 Blood Pressure 116/46 L Pulse Oximetry 97 96 09/28/21 16:23 09/28/21 16:35 09/28/21 20:56 Temperature Pulse Rate 77 80 81 Respiratory Rate 20 20 20 Blood Pressure Pulse Oximetry 09/28/21 21:04 09/28/21 21:50 09/28/21 22:00 Temperature 35.9 C L Pulse Rate 76 85 Respiratory Rate 20 18 Blood Pressure 130/56 L Pulse Oximetry 93 93 09/29/21 03:51 09/29/21 04:00 09/29/21 06:00 Temperature 36.2 C L Pulse Rate 84 79 76 Respiratory Rate 20 20 18 Blood Pressure 123/55 L Pulse Oximetry 93 Intake/Output Intake/Output: Intake & Output 09/26/21 09/27/21 09/28/21 09/29/21 23:59 23:59 23:59 23:59 Intake Total 1360 750 Output Total 100 900 Balance 1260 -150 Meds/Results Medications: Active Medications Generic Name Dose Route Start Last Admin Trade Name Freq PRN Reason Stop Dose Admin Albuterol 2 puff 09/28/21 02:39 Albuterol Sulfate (*Sp) Aerosol 1 Puff INHALATION Q2HRT PRN Shortness Of Breath Alprazolam 0.5 mg 09/28/21 02:39 09/28/21 21:42 Alprazolam (*Crx) 0.5 Mg Tablet PO 0.5 mg TID PRN Administration anxiety Benzonatate 200 mg 09/28/21 02:39 09/28/21 21:47 Benzonatate 100 Mg Capsule PO 200 mg TID PRN Administration Cough Bupropion HCl 150 mg 09/28/21 09:00 09/28/21 21:47 Bupropion Hcl 75 Mg Tablet PO 150 mg Q12HR JOSE Administration Clopidogrel Bisulfate 75 mg 09/28/21 09:00 09/28/21 08:29 Clopidogrel Bisulfate 75 Mg Tablet PO 75 mg DAILY JOSE Administration Enoxaparin Sodium 40 mg 09/28/21 09:00 09/28/21 08:28 Enoxaparin 40 Mg/0.4 Ml Syringe SUB-Q 40 mg DAILY JOSE Administration Fluticasone Propionate 1 spray 09/28/21 21:00 09/28/21 21:20 Fluticasone Propionate 0.05% Na Spr 16 Gm Btl (*Bkc) NASAL Not Given Q12HR JOSE Fluticasone/Umeclidinium/Vilanterol 1 puff 09/28/21 08:00 09/28/21 08:28 Fluticasone/Umeclidin/Vilanter 200-62.5-25 Mcg Ellipta INHALATION 1 puff DAILYRT JOSE Administration Guaifenesin 200 mg 09/28/21 02:39 Guaifenesin 200 Mg/10 Ml Udc PO Q4H PRN Cough Sodium Chloride 1,000 mls @ 70 mls/hr 09/28/21 17:45 09/28/21 18:59 Normal Saline Iv IV CONT 70 mls/hr .[id number] JOSE Administration Ipratropium [place] 0.5 mg 09/28/21 08:00 Ipratropium Br 0.02% Inh Soln 0.5 Mg/2.5 Ml Vial INHALATION Q6HRT PRN Shortness Of Breath Or Wheezin Levalbuterol HCl 0.63 mg 09/29/21 04:00 09/29/21 03:50 Levalbuterol Neb 1.25 Mg/3 Ml INHALATION 0.63 mg Q6HRT JOSE Administration Losartan Potassium 100 mg 09/28/21 09:00 09/28/21 08:29 Losartan Potassium 100 Mg Tablet PO 100 mg DAILY JOSE Administration Methylprednisolone Sodium Succinate 60 mg 09/28/21 00:00 09/29/21 06:19 Methylprednisolone Sod Succ 125 Mg Vial IV PUSH 60 mg Q6HR JOSE Administration Miscellaneous Information 0 each 09/28/21 00:01 Plecanatide Nonform Can Pt Bring From Home? XX 10/28/21 00:00 CLARIFY JOSE Morphine Sulfate 4 mg 09/27/21 22:57 09/29/21 06:17 Morphine Sulfate (*Crx) 4 Mg/Ml Inj IV PUSH 4 mg Q2H PRN Administration Pain Rated 7-10 Nicotine 1 patch 09/28/21 09:00 09/28/21 08:29 Nicotine (*Adal) 21 Mg Patch TRANSDERM 1 patch DAILY JOSE Administration Non-Formulary Medication 3 mg 09/28/21 02:39 Plecanatide [Trulance] PO DAILY PRN Constipation Nonformulary Drug 250 mcg 09/28/21 09:00 09/28/21 08:29 Roflumilast [ PO 10/28/21 08:59 250 mcg Daliresp] 250 Mcg DAILY JOSE Administration Tablet Ondanset
--- NOTE | 2021-09-29 08:11 | PM.PNPUL ---
Progress Note: A&P Assessment and Plan (1) Acute exacerbation of chronic obstructive pulmonary disease: Code(s): J44.1 - Chronic obstructive pulmonary disease with (acute) exacerbation Status: Acute Assessment and Plan: patient has had right chest pain since last night, received morphine for pain control. Patient's chest x-ray today showed small effusion on right, question right lower lobe infiltrate. physical exam essentially unchanged showing expiratory wheezing as yesterday. Will proceed with a chest CT to exclude pulmonary embolus. Would recommend a tranquilizer p.r.n. to control anxiety. I have decreased IV steroids. further recommendations following chest CT PA. (2) Chronic respiratory failure with hypoxia: Code(s): J96.11 - Chronic respiratory failure with hypoxia Status: Acute (3) Pleural effusion: Code(s): J90 - Pleural effusion, not elsewhere classified Status: Acute Subjective Date/time seen: 09/29/21 08:11 Patient complaining of right chest pain with some worsening with deep inspirations since last night. Shortness of breath about the same. She has no other respiratory symptoms such as fever chills or change in cough. She received morphine for chest pain. She is very anxious this a.m. Review of Systems Review of Systems: All systems reviewed & are unremarkable except as noted in HPI and below (H and P and below) Exam Narrative: GENERAL APPEARANCE: Well developed, well nourished, alert and cooperative, and appears to be in in mild respiratory distress while on supplemental oxygen. SKIN: Inspection of the skin reveals no rashes, ulcerations or petechiae. HEENT: Sclerae anicteric and conjunctivae pink and moist. Extraocular movements were intact and pupils were equal, round; Dry oral mucosa NECK: Supple. There was no thyroid enlargement, and no tenderness, or masses were felt. CHEST: increased AP diameter and normal contour without any kyphoscoliosis. LUNGS: Auscultation of the lungs revealed distant breath sounds with expiratory wheezing bilaterally. CARDIAC: There was a regular rate and rhythm without any murmurs, gallops, rubs. ABDOMEN: Soft and nontender with normal bowel sounds. EXTREMITIES: No cyanosis, clubbing or edema. NEUROLOGIC: Alert and oriented x 3. Normal affect. Objective Data Vital Signs Vital Signs: Vital Signs - 24 hr 09/28/21 08:49 09/28/21 08:50 09/28/21 08:55 Temperature Pulse Rate 88 91 Respiratory Rate 20 22 H Blood Pressure Pulse Oximetry 96 09/28/21 14:00 09/28/21 14:13 09/28/21 14:20 Temperature 36.3 C L Pulse Rate 73 85 88 Respiratory Rate 20 20 20 Blood Pressure 116/46 L Pulse Oximetry 97 96 09/28/21 16:23 09/28/21 16:35 09/28/21 20:56 Temperature Pulse Rate 77 80 81 Respiratory Rate 20 20 20 Blood Pressure Pulse Oximetry 09/28/21 21:04 09/28/21 21:50 09/28/21 22:00 Temperature 35.9 C L Pulse Rate 76 85 Respiratory Rate 20 18 Blood Pressure 130/56 L Pulse Oximetry 93 93 09/29/21 03:51 09/29/21 04:00 09/29/21 06:00 Temperature 36.2 C L Pulse Rate 84 79 76 Respiratory Rate 20 20 18 Blood Pressure 123/55 L Pulse Oximetry 93 Intake/Output Intake/Output: Intake & Output 09/26/21 09/27/21 09/28/21 09/29/21 23:59 23:59 23:59 23:59 Intake Total 1360 750 Output Total 100 900 Balance 1260 -150 Meds/Results Medications: Active Medications Generic Name Dose Route Start Last Admin Trade Name Freq PRN Reason Stop Dose Admin Albuterol 2 puff 09/28/21 02:39 Albuterol Sulfate (*Sp) Aerosol 1 Puff INHALATION Q2HRT PRN Shortness Of Breath Alprazolam 0.5 mg 09/28/21 02:39 09/28/21 21:42 Alprazolam (*Crx) 0.5 Mg Tablet PO 0.5 mg TID PRN Administration anxiety Benzonatate 200 mg 09/28/21 02:39 09/28/21 21:47 Benzonatate 100 Mg Capsule PO 200 mg TID PRN Administration Cough Bupropion HCl 150 mg
[2021-09-29] MEDS: ALPRAZolam (*CRX) 0.5 MG TABLET PO ×2 (08:39→19:56)
[2021-09-29] MEDS: NICOTINE (*PBKC) 21 MG PATCH 1 PATCH TRANSDERM (08:40)
[2021-09-29] MEDS: ENOXAPARIN 40 MG/0.4 ML SYRINGE SUB-Q (08:41)
[2021-09-29] MEDS: buPROPion HCL 75 MG TABLET 150 MG PO ×2 (08:41→19:59)
[2021-09-29] MEDS: ROSUVASTATIN 10 MG TABLET 40 MG PO (08:41)
[2021-09-29] MEDS: CLOPIDOGREL BISULFATE 75 MG TABLET PO (08:41)
[2021-09-29] MEDS: PANTOPRAZOLE 40 MG TABLET PO ×2 (08:41→20:01)
[2021-09-29] MEDS: LOSARTAN POTASSIUM 100 MG TABLET PO (08:41)
[2021-09-29] MEDS: SALINE 0.65% NAS SOLN 44 ML BTL 1 SPRAY NASAL (08:42)
[2021-09-29] MEDS: BENZONATATE 100 MG CAPSULE 200 MG PO (08:42)
[2021-09-29] MEDS: FLUTICASONE/UMECLIDIN/VILANTER 200-62.5-25 MCG ELLIPTA 1 PUFF INHALATION (09:00)
[2021-09-29] MEDS: SODIUM CHLORIDE 0.9% IV 1,000 ML 70 ML IV CONT (10:46)
--- NOTE | 2021-09-29 12:01 | PM.IMPN ---
Progress Note: A&P Assessment and Plan (1) Acute and chronic respiratory failure with hypoxia: Code(s): J96.21 - Acute and chronic respiratory failure with hypoxia Status: Acute Assessment and Plan: Patient with chronic respiratory on 2-3L at rest and up to 4L with exertion. She presents with SOB with ABG 7.44/50/88 on BiPAP. She had elevated carboxyhemo 3.9%. She said she no longer smokes since March and has electric furnace and a working CO monitor. She has been weaned to 2L but still wheezing and without the sense of improvement. CTA chest negative for PE. Solu-Medrol dose decreased. Will continue Albuterol, Trelegy and Daliresp. Pulmonary following and appreciate their input. (2) COPD exacerbation: Code(s): J44.1 - Chronic obstructive pulmonary disease with (acute) exacerbation Status: Acute Assessment and Plan: As above. PFTs in July 2021 showing very severe obstructive abnormality without significant improvement after inhaling a single dose of albuterol. Probably nearing end-stage COPD. Continue Albuterol, Trelegy, Daliresp and Solu-Medrol. Chest pain probably musculoskeletal pain from coughing. No rash to suggest shingles. Heating pad (3) Hyponatremia: Code(s): E87.1 - Hypo-osmolality and hyponatremia Status: Acute Assessment and Plan: Sodium 122 on admission. Urine Na 6 with FEN1 0.016%. Probably dehydration related to Lasix and insensible losses. Lasix on hold. Na dropped to 117 but improved to 120 with IV fluids. Continue to monitor closely. (4) Obstructive sleep apnea: Code(s): G47.33 - Obstructive sleep apnea (adult) (pediatric) Status: Acute Assessment and Plan: Patient denies that she has obstructive sleep apnea. (5) Polycythemia: Code(s): D75.1 - Secondary polycythemia Status: Acute Assessment and Plan: Patient has chronic polycythemia. She has been told it related to chronic hypoxia from her COPD. Hemoglobin is Fifteen. Continue to monitor. (6) AAA (abdominal aortic aneurysm): Qualifiers: Presence of rupture: without rupture Qualified Code(s): I71.4 - Abdominal aortic aneurysm, without rupture Code(s): I71.4 - Abdominal aortic aneurysm, without rupture Status: Acute Assessment and Plan: Noted to have AAA. CTA abd and LE Oct 2020 showing a 5.2 x 3.8 cm fusiform aneurysm of the distal descending thoracic aorta and a 3.3 x 2.8 cm fusiform infrarenal abdominal aortic aneurysm. She also has PAD with CTA showing: -- moderate stenosis of the bilateral external iliac arteries and mild stenosis of the bilateral internal iliac arteries. -- moderate stenosis in the Right superficial femoral artery. The popliteal artery and tibioperoneal trunk demonstrate calcified atherosclerosis without significant stenosis. There is a three-vessel runoff at the ankle. -- there is a 10 cm occluded segment of the Left mid superficial femoral artery. The popliteal artery and tibial peroneal trunk demonstrate calcified atherosclerosis without significant stenosis. There is a three-vessel runoff at the ankle. CTA of the chest today showing enlarging aneurysm. She received contrast today so will plan to repeat the CT A/P tomorrow. Continue Plavix/ASA. No smoking is imperative. Continue Crestor. (7) GERD (gastroesophageal reflux disease): Qualifiers: Esophagitis presence: esophagitis presence not specified Qualified Code(s): K21.9 - Gastro-esophageal reflux disease without esophagitis Code(s): K21.9 - Gastro-esophageal reflux disease without esophagitis Status: Acute Assessment and Plan: She is having bloating which is probably inhibiting diaphragmatic excursion resulting in SOB. Continue PPI (8) Tobacco abuse: Code(s): Z72.0 - Tobacco use Status: Acute Assessment and Plan: Patient states she quit tobacco in March 2021. Nicotine patch available. (9)
[2021-09-29] MEDS: SODIUM CHLORIDE 500 MG TABLET PO ×2 (12:55→19:59)
[2021-09-29 12:56] LABS: Sodium 119 mmol/L (137-145)
--- NOTE | 2021-09-29 15:32 | PC.NURSE ---
On 09/29/21, the student, [Analia Hurley ], provided care and completed [facility] documentation on this patient. I have reviewed the student's documentation and agree with the findings.
--- NOTE | 2021-09-29 18:08 | PCRCNOTE ---
Window of time for administration has passed. See next scheduled administration.
[2021-09-29 18:54] LABS: Sodium 118 mmol/L (137-145)
--- NOTE | 2021-09-29 18:57 | PC.NURSE ---
Awaiting call back regarding critical sodium 118, called MD Omer.
[2021-09-29] MEDS: FLUTICASONE PROPIONATE 0.05% NA SPR 16 GM BTL (*BKC) 1 SPRAY NASAL (20:00)
[2021-09-30] VITALS (11 sets, daily range): BP systolic 121–144; BP diastolic 55–72; PULSE 58–112; RESP 16–20; TEMP 35.5–36.6; O2SAT 90–100
[2021-09-30 00:45] LABS: Sodium 118 mmol/L (137-145)
[2021-09-30] MEDS: SODIUM CHLORIDE 0.9% IV 1,000 ML 70 ML IV CONT (02:31)
[2021-09-30] MEDS: LEVALBUTEROL NEB 1.25 MG/3 ML 0.63 MG INHALATION ×3 (03:42→14:49)
[2021-09-30] MEDS: MORPHINE SULFATE (*CRX) 4 MG/ML INJ IV PUSH ×2 (05:02→21:03)
[2021-09-30] MEDS: ALPRAZolam (*CRX) 0.5 MG TABLET PO ×2 (05:06→17:42)
[2021-09-30 06:39] LABS: Basophils Percent Auto 0.1 % (0.2-1.2); Hemoglobin 14.2 g/dL (12.0-15.0); Immature Granulocyte Absolute 0.29 K/mm3 (0.00-0.031); Immature Granulocyte Percent A 1.9 % (0-0.5); Lymphocytes Absolute Auto 0.35 K/mm3 (0.9-3.2); Lymphocytes Percent Auto 2.3 % (18.3-44.2); Mean Corpuscular Hemoglobin 32.6 pg (26-34); Mean Corpuscular Volume 98.6 fl (80-100); Monocytes Absolute Auto 1.2 K/mm3 (0.1-0.6); Monocytes Percent Auto 7.8 % (2.6-8.5); Neutrophils Absolute Auto 13.2 K/mm3 (1.3-6.7); Neutrophils Percent Auto 87.9 % (45.5-73.1); Platelet Count Result 250 k/mm3 (150-375); Red Blood Count 4.36 M/mm3 (4.2-5.4); Red Cell Distribution Width 15.2 % (11.5-14.5)
[2021-09-30 07:15] LABS: Albumin Level 4.4 g/dL (3.5-5.1); Anion Gap 11 mmol/L (8-16); Blood Urea Nitrogen 51 mg/dL (7-17); Carbon Dioxide 20 mmol/L (22-30); Chloride 88 mmol/L (98-107); Estimated CRCL calculation 22 ml/min; Estimated Glomerular Filt Rate 22; Glucose 122 mg/dL (65-110); Magnesium 2.2 mg/dL (1.6-2.3); Phosphorus 7.5 mg/dL (2.5-4.5); Sodium 119 mmol/L (137-145)
[2021-09-30 08:33] LABS: CRP < 0.5 mg/dL (<1.0); Creatine Kinase 1483 U/L (30-135)
[2021-09-30 08:42] LABS: Complement C3 93 mg/dL (88-165)
[2021-09-30] MEDS: SODIUM CHLORIDE 500 MG TABLET PO (09:36)
[2021-09-30] MEDS: buPROPion HCL 75 MG TABLET 150 MG PO ×2 (09:36→21:01)
[2021-09-30] MEDS: CLOPIDOGREL BISULFATE 75 MG TABLET PO (09:36)
[2021-09-30] MEDS: ENOXAPARIN 30 MG/0.3 ML SYRINGE SUB-Q (09:37)
[2021-09-30] MEDS: ROSUVASTATIN 10 MG TABLET 40 MG PO (09:38)
[2021-09-30] MEDS: PANTOPRAZOLE 40 MG TABLET PO ×2 (09:39→21:01)
[2021-09-30] MEDS: methylPREDNISolone SOD SUCC 125 MG VIAL 60 MG IV PUSH (09:40)
[2021-09-30] MEDS: FLUTICASONE PROPIONATE 0.05% NA SPR 16 GM BTL (*BKC) 1 SPRAY NASAL ×2 (09:41→21:00)
[2021-09-30] MEDS: NICOTINE (*PBKC) 21 MG PATCH 1 PATCH TRANSDERM (09:49)
[2021-09-30 10:55] LABS: Add Urine Microscopic? YES; Appearance Urine Cloudy (Clear); Bacteria Urine Trace /hpf; Bilirubin Urine Negative (Negative); Blood Urine Negative (Negative); Color Urine Yellow (Yellow); Glucose Urine UA Negative (Negative); Ketones Urine Negative (Negative); Leukocyte Esterase Ur Negative LEU/UL (Negative); Mucus Urine Rare /lpf; Nitrate Urine Negative (Negative); Protein Urine Negative (Negative); Squamous Epithelial Cell Urine Rare /hpf (Few); Urobilinogen Urine Negative mg/dL (<2.0); WBC Urine 0-3 /hpf
[2021-09-30 11:02] LABS: Specific Grav Ur 1.042 (1.001-1.035)
[2021-09-30 11:13] LABS: Sodium Urine Random < 5 meq/L
[2021-09-30 11:53] LABS: Eosinophil Urine None Seen % (None Seen)
--- NOTE | 2021-09-30 12:06 | PM.PNPUL ---
Progress Note: A&P Assessment and Plan (1) Acute exacerbation of chronic obstructive pulmonary disease: Code(s): J44.1 - Chronic obstructive pulmonary disease with (acute) exacerbation Status: Acute Assessment and Plan: Respiratory status unchanged over the last 24 hours. Right chest pleuritic pain abated. No pulmonary embolism on chest CT. Continue with same treatment for COPD exacerbation. IV steroids were decreased to 60 mg Solu-Medrol daily. Adjust lovenox sc to GFR. (2) Chronic respiratory failure with hypoxia: Code(s): J96.11 - Chronic respiratory failure with hypoxia Status: Acute (3) Acute renal failure: Qualifiers: Acute renal failure type: unspecified Qualified Code(s): N17.9 - Acute kidney failure, unspecified Code(s): N17.9 - Acute kidney failure, unspecified Status: Acute Assessment and Plan: Probably related to IV contrast she received for CT PA. no recent drop in blood pressure. Patient currently on IV fluids. CPK elevated for unclear etiology. check troponin. Subjective Date/time seen: 09/30/21 12:06 Patient doing any better. Continues to have shortness of breath. No longer complaining of right chest pleuritic chest pain. Creatinine and BUN elevated today. Started on IV fluids. Review of Systems Review of Systems: All systems reviewed & are unremarkable except as noted in HPI and below (H and P and below) Exam Narrative: GENERAL APPEARANCE: Well developed, well nourished, alert and cooperative, and appears to be in in mild respiratory distress while on supplemental oxygen. SKIN: Inspection of the skin reveals no rashes, ulcerations or petechiae. HEENT: Sclerae anicteric and conjunctivae pink and moist. Extraocular movements were intact and pupils were equal, round; Dry oral mucosa NECK: Supple. There was no thyroid enlargement, and no tenderness, or masses were felt. CHEST: increased AP diameter and normal contour without any kyphoscoliosis. LUNGS: Auscultation of the lungs revealed distant breath sounds with expiratory wheezing bilaterally. CARDIAC: There was a regular rate and rhythm without any murmurs, gallops, rubs. ABDOMEN: Soft and nontender with normal bowel sounds. EXTREMITIES: No cyanosis, clubbing or edema. NEUROLOGIC: Alert and oriented x 3. Normal affect. Objective Data Vital Signs Vital Signs: Vital Signs - 24 hr 09/29/21 14:00 09/29/21 20:00 09/29/21 20:41 Temperature 36.2 C L Pulse Rate 92 81 Respiratory Rate 16 20 Blood Pressure 129/65 Pulse Oximetry 91 91 09/29/21 20:42 09/29/21 20:51 09/29/21 22:00 Temperature 35.8 C L Pulse Rate 76 90 Respiratory Rate 20 18 Blood Pressure 102/55 L Pulse Oximetry 94 95 09/30/21 03:40 09/30/21 06:00 09/30/21 08:00 Temperature 35.5 C L Pulse Rate 80 58 L Respiratory Rate 20 16 Blood Pressure 121/65 Pulse Oximetry 100 100 09/30/21 11:06 09/30/21 11:17 Temperature Pulse Rate 84 84 Respiratory Rate 20 20 Blood Pressure Pulse Oximetry 91 Intake/Output Intake/Output: Intake & Output 09/27/21 09/28/21 09/29/21 09/30/21 23:59 23:59 23:59 23:59 Intake Total 1360 2530 1500 Output Total 100 1100 100 Balance 1260 1430 1400 Meds/Results Medications: Active Medications Generic Name Dose Route Start Last Admin Trade Name Freq PRN Reason Stop Dose Admin Albuterol 2 puff 09/28/21 02:39 Albuterol Sulfate (*Sp) Aerosol 1 Puff INHALATION Q2HRT PRN Shortness Of Breath Alprazolam 0.5 mg 09/28/21 02:39 09/30/21 05:06 Alprazolam (*Crx) 0.5 Mg Tablet PO 0.5 mg TID PRN Administration anxiety Benzonatate 200 mg 09/28/21 02:39 09/29/21 08:42 Benzonatate 100 Mg Capsule PO 200 mg TID PRN Administration Cough Bupropion HCl 150 mg 09/28/21 09:00 09/30/21 09:36 Bupropion Hcl 75 Mg Tablet PO 150 mg Q12HR JOSE Administration Clopidogrel Bisulfate 75 mg 09/28/21 09:00 12
--- NOTE | 2021-09-30 12:16 | PM.IMPN ---
Progress Note: A&P Assessment and Plan (1) Acute renal failure: Qualifiers: Acute renal failure type: unspecified Qualified Code(s): N17.9 - Acute kidney failure, unspecified Code(s): N17.9 - Acute kidney failure, unspecified Status: Acute Assessment and Plan: Patient's renal function with BUN 9, Cr 0.7 and CrCl 65 on admission. Yesterday, BUN 30,Cr 1.0 and CrCl 46 despite IV fluids. BUN elevation from steroids. Crestor resumed on admission. She had a CTA yesterday as well. BUN 51 and Cr now 2.2. Probably multifactorial from rhabdomyolysis, dehydration, contrast and/or Lasix dose overnight. Will advance IV fluids. Urine studies consistent with pre-renal and Ueos negative; complement normal; UA clear except for 3-5 RBC (from the rhabdo). Nephrology consult. Hold Cozaar. Place [place] (no evidence of urine retention). Check Renal US. (2) Rhabdomyolysis: Code(s): M62.82 - Rhabdomyolysis Status: Acute Assessment and Plan: Patient with ANEL as above. TCK ordered and elevated to 1483. Possibly playing a part in her ANEL. Will increase IV fluid rate. Daily TCK levels. Stop Crestor (3) Acute and chronic respiratory failure with hypoxia: Code(s): J96.21 - Acute and chronic respiratory failure with hypoxia Status: Acute Assessment and Plan: Patient with chronic respiratory failure on 2-3L at rest and up to 4L with exertion. She presents with SOB with ABG 7.44/50/88 on BiPAP. She had elevated carboxyhemo 3.9%. She said she no longer smokes since March and has electric furnace and a working CO monitor. She has been weaned to 2-3L but still wheezing and without the sense of improvement. CTA chest negative for PE. Continue Solu-Medrol and neb treatments. Pulmonary following and appreciate their input. (4) COPD exacerbation: Code(s): J44.1 - Chronic obstructive pulmonary disease with (acute) exacerbation Status: Acute Assessment and Plan: As above. PFTs in July 2021 showing very severe obstructive abnormality without significant improvement after inhaling a single dose of albuterol. Probably nearing end-stage COPD. Continue Albuterol, Trelegy, Daliresp and Solu-Medrol. Still with extensive wheezing and feeling poorly. Follow. Appreciate Pulmonary input. (5) Hyponatremia: Code(s): E87.1 - Hypo-osmolality and hyponatremia Status: Acute Assessment and Plan: Sodium 122 on admission. Urine Na 6 with FEN1 0.016%. Probably dehydration related to Lasix and insensible losses. Lasix on hold. Na dropped to 117 but improved to 123 with IV fluids and NaCl tablets. Repeat Urine Na still low. Continue to monitor closely. (6) Obstructive sleep apnea: Code(s): G47.33 - Obstructive sleep apnea (adult) (pediatric) Status: Acute Assessment and Plan: Patient denies that she has obstructive sleep apnea. Pulmonary following. (7) Polycythemia: Code(s): D75.1 - Secondary polycythemia Status: Acute Assessment and Plan: Patient has chronic polycythemia. She has been told it related to chronic hypoxia from her COPD. Hemoglobin is 14. Continue to monitor. (8) AAA (abdominal aortic aneurysm): Qualifiers: Presence of rupture: without rupture Qualified Code(s): I71.4 - Abdominal aortic aneurysm, without rupture Code(s): I71.4 - Abdominal aortic aneurysm, without rupture Status: Acute Assessment and Plan: Noted to have AAA. CTA abd and LE Oct 2020 showing a 5.2 x 3.8 cm fusiform aneurysm of the distal descending thoracic aorta and a 3.3 x 2.8 cm fusiform infrarenal abdominal aortic aneurysm. She also has PAD with CTA showing: -- moderate stenosis of the bilateral external iliac arteries and mild stenosis of the bilateral internal iliac arteries. -- moderate stenosis in the Right superficial femoral artery. The popliteal artery and tibioperoneal trunk demonstrate calcified atherosclerosi
--- NOTE | 2021-09-30 12:17 | PC.NURSE ---
patient to ultrasound per stretcher with oxygen
[2021-09-30 12:26] LABS: Sodium 123 mmol/L (137-145)
--- NOTE | 2021-09-30 12:51 | PC.NURSE ---
patient returning to bed from ultrasound
[2021-09-30 13:56] LABS: Troponin I 0.022 ng/mL (0.000-0.034)
[2021-09-30] MEDS: SODIUM CHLORIDE 0.9% IV 1,000 ML 125 ML IV CONT (14:52)
[2021-09-30 20:22] LABS: Sodium 119 mmol/L (137-145)
--- NOTE | 2021-09-30 21:13 | PM.CNNEP ---
Assessment and Plan Assessment and plan (1) Acute renal failure: Qualifiers: Acute renal failure type: unspecified Qualified Code(s): N17.9 - Acute kidney failure, unspecified Code(s): N17.9 - Acute kidney failure, unspecified Status: Acute Assessment and Plan: The patient has acute renal failure. This is probably multifactorial. She has an elevated CPK. Although usually takes a higher CK to affect the kidneys, this may be additive. Will repeat the CK to see which direction it is going. The patient has received contrast. Her creatinine was normal when she received the contrast. The patient may be pre renal. Urine sodium is low. Renal ultrasound is normal which rules out obstruction. I doubt if she has glomerulonephritis or interstitial nephritis in this clinical scenario. The patient has received some IV fluids. Unfortunately her IV is not working very well right now and keeps alarming. She did already receive 3L of fluid yesterday and 4L of fluid today so I think she has had enough IV fluids. Will hold off on the IV fluids and repeat her creatinine tomorrow. (2) Hyponatremia: Code(s): E87.1 - Hypo-osmolality and hyponatremia Status: Acute Assessment and Plan: The patient has hyponatremia. 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 I would guess that her severe emphysema is the reason for this. She also has had several cancers in the past. Other things cause hyponatremia as well: Hormonal: Will check a TSH and cortisol. Medicines: She is on furosemide as an outpatient. Perhaps this is contributing. It does not look like she is on any other medicines as an outpatient that would cause hyponatremia. Cancer: She does not have any active cancers right now but she has had cancers in the past. Pulmonary disease: This is the most likely cause of her hyponatremia [employer]PER[employer]ENT: She had a brain MRI in the past which was okay. She does not have any neurologic symptoms. Her acute hyponatremia could be from the pre renal azotemia that she had on admission. She has been getting IV fluids. Even though the these are isotonic fluids, her SIADH may allow her sodium to fall in spite of the fluids. So I am going to fluid restrict her, give her some Lasix, and give her salt tablets to help bring her sodium level up. The Lasix helps by reducing her urine osmolality.. (3) Rhabdomyolysis: Code(s): M62.82 - Rhabdomyolysis Status: Acute Assessment and Plan: The patient has an elevated CK. Mentioned above I do not think this is high enough to affect her kidneys. Will repeat a CK in the morning. (4) Benign essential hypertension: Code(s): I10 - Essential (primary) hypertension Status: Acute Assessment and Plan: Patient has chronic hypertension. Her blood pressure is under good control. (5) Chronic respiratory failure with hypoxia: Code(s): J96.11 - Chronic respiratory failure with hypoxia Status: Acute Assessment and Plan: She is getting inhalers, steroids, and supportive care. (6) ASHD (arteriosclerotic heart disease): Code(s): I25.10 - Atherosclerotic heart disease of [place] coronary artery without angina pectoris Status: Acute Assessment and Plan: She is not having any chest pain (7) Atrial fibrillation: Code(s): I48.91 - Unspecified atrial fibrillation Status: Acute Assessment and Plan: She is in sinus rhythm now. Heart rate is good. History of Present Illness Reason for Consult Consult date: 09/30/21 Chief Complaint Chief complaint: COPD Exacerbation History of Present Illness Narrative: Hetal is a very pleasant and very anxious 76-year-old lady who has multiple medical problems including COPD, pulmonary hypertension, sleep apnea, anxiety, depression, edema, GERD, gastric ulcer, irritable bowel syndrome, B12 deficiency. AAA, atherosclerot
[2021-10-01] VITALS (9 sets, daily range): BP systolic 111–152; BP diastolic 56–88; PULSE 92–114; RESP 16–22; TEMP 36.7–36.9; O2SAT 94–100
[2021-10-01] MEDS: SODIUM CHLORIDE 1 GM TABLET PO ×3 (00:03→21:23)
[2021-10-01] MEDS: FUROSEMIDE 10 MG TABLET PO ×3 (00:03→13:48)
--- NOTE | 2021-10-01 01:27 | PCRCNOTE ---
Window of time for administration has passed. See next scheduled administration.
[2021-10-01] MEDS: LEVALBUTEROL NEB 1.25 MG/3 ML 0.63 MG INHALATION ×3 (01:28→20:53)
[2021-10-01 02:35] LABS: Sodium 125 mmol/L (137-145)
[2021-10-01 07:02] LABS: Alanine Aminotransferase 52 U/L (4-35); Albumin Level 4.6 g/dL (3.5-5.1); Alkaline Phosphatase 61 U/L (38-126); Anion Gap 14 mmol/L (8-16); Aspartate Amino Transferase 126 U/L (14-36); Blood Urea Nitrogen 64 mg/dL (7-17); Calcium 8.9 mg/dL (8.4-10.2); Carbon Dioxide 18 mmol/L (22-30); Chloride 90 mmol/L (98-107); Creatine Kinase 2314 U/L (30-135); Estimated CRCL calculation 16 ml/min; Estimated Glomerular Filt Rate 16; Glucose 91 mg/dL (65-110); Magnesium 2.4 mg/dL (1.6-2.3); Potassium 5.3 mmol/L (3.4-5.0); Sodium 122 mmol/L (137-145)
--- NOTE | 2021-10-01 08:41 | PM.IMPN ---
Progress Note: A&P Assessment and Plan (1) Acute renal failure: Qualifiers: Acute renal failure type: unspecified Qualified Code(s): N17.9 - Acute kidney failure, unspecified Code(s): N17.9 - Acute kidney failure, unspecified Status: Acute Assessment and Plan: Patient's renal function normal with BUN 9, Cr 0.7 and CrCl 65 on admission. BUN elevation from steroids. Crestor resumed on admission. She had a CTA 09/29. Probably multifactorial from rhabdomyolysis, dehydration, contrast and/or Lasix. Urine studies consistent with pre-renal and Ueos negative; complement normal; UA clear except for 3-5 RBC (from the rhabdo); Renal US normal. Nephrology consulted. Cozaar held. Treated with IV fluids but stopped; low dose Lasix IV started 09/30. BUN 64 and Cr 2.9 now; UOP 100; metabolic acidosis with plasma bicarb at 18 and normal gap. Will continue Lasix. Consider ischemic changes to the kidneys from her vascular disease and/or aortic anerysm given now her thigh pain and worsening renal function. Discussed case with radiology who reviewed old CTA from October and recent CTA chest 09/29/21. No signifincat change in the atherosclerotic findings of the renal arteries. He felt the biggest aortic aneurysmal changes was seen by the CTA on 09/29 and that it was only slightly worsened. He did not recommend further imaging since felt to be low yield. Will continue to treat as outlined for now. (2) Rhabdomyolysis: Code(s): M62.82 - Rhabdomyolysis Status: Acute Assessment and Plan: Patient with ANEL as above. TCK climbing still to 2314. Related to Crestor? Related to ischemia? Rhabdo possibly playing a part in her ANEL. IV fluids stopped. LFTs higher felt related to the rhabdo and less likely relatd to liver pathology. Continue daily TCK levels and LFTs.. (3) Acute and chronic respiratory failure with hypoxia: Code(s): J96.21 - Acute and chronic respiratory failure with hypoxia Status: Acute Assessment and Plan: Patient with chronic respiratory failure on 2-3L at rest and up to 4L with exertion. She presents with SOB with ABG 7.44/50/88 on BiPAP. She had elevated carboxyhemo 3.9%. She said she no longer smokes since March and has electric furnace and a working CO monitor. She has been weaned to 2-3L but still wheezing with improved air exchange but without the sense of improvement. CTA chest negative for PE. Continue Solu-Medrol and neb treatments. Pulmonary following and appreciate their input. Discussed with pulmonary. (4) COPD exacerbation: Code(s): J44.1 - Chronic obstructive pulmonary disease with (acute) exacerbation Status: Acute Assessment and Plan: As above. PFTs in July 2021 showing very severe obstructive abnormality without significant improvement after a dose of albuterol. Probably nearing end-stage COPD. Continue Albuterol, Trelegy, Daliresp and Solu-Medrol. Still with extensive wheezing but improved air exchange Follow. Appreciate Pulmonary input. (5) Hyponatremia: Code(s): E87.1 - Hypo-osmolality and hyponatremia Status: Acute Assessment and Plan: Sodium 122 on admission. Urine Na 6 with FEN1 0.016%. Probably dehydration related to Lasix and insensible losses. Lasix was on hold. Na level up and down. Could be related to obstructive process if aneurysm has expanded. IV fluids stopped. Continue NaCl tablets. Follow (6) Obstructive sleep apnea: Code(s): G47.33 - Obstructive sleep apnea (adult) (pediatric) Status: Acute Assessment and Plan: Patient denies that she has obstructive sleep apnea. Pulmonary following. (7) Polycythemia: Code(s): D75.1 - Secondary polycythemia Status: Acute Assessment and Plan: Patient has chronic polycythemia. She has been told it related to chronic hypoxia from her COPD. Continue to monitor. (8) AAA (abdominal aortic aneurysm): Qualifiers:
[2021-10-01] MEDS: MORPHINE SULFATE (*CRX) 4 MG/ML INJ IV PUSH ×2 (08:50→13:54)
[2021-10-01] MEDS: FLUTICASONE PROPIONATE 0.05% NA SPR 16 GM BTL (*BKC) 1 SPRAY NASAL ×2 (08:51→21:23)
[2021-10-01] MEDS: buPROPion HCL 75 MG TABLET 150 MG PO ×2 (08:51→21:23)
[2021-10-01] MEDS: ENOXAPARIN 30 MG/0.3 ML SYRINGE SUB-Q (08:51)
[2021-10-01] MEDS: CLOPIDOGREL BISULFATE 75 MG TABLET PO (08:52)
[2021-10-01] MEDS: NICOTINE (*PBKC) 21 MG PATCH 1 PATCH TRANSDERM (08:53)
[2021-10-01] MEDS: PANTOPRAZOLE 40 MG TABLET PO ×2 (08:53→21:23)
[2021-10-01] MEDS: methylPREDNISolone SOD SUCC 125 MG VIAL 60 MG IV PUSH (08:53)
--- NOTE | 2021-10-01 09:05 | PM.PNPUL ---
Progress Note: A&P Assessment and Plan (1) Acute exacerbation of chronic obstructive pulmonary disease: Code(s): J44.1 - Chronic obstructive pulmonary disease with (acute) exacerbation Status: Acute Assessment and Plan: Respiratory status unchanged over the last 24 hours. Right chest pleuritic pain abated. No pulmonary embolism on chest CT. Expiratory wheezing less on today's auscultation. IV steroids were discontinued patient was placed on oral prednisone. Continue with same treatment for COPD exacerbation. (2) Chronic respiratory failure with hypoxia: Code(s): J96.11 - Chronic respiratory failure with hypoxia Status: Acute (3) Acute renal failure: Qualifiers: Acute renal failure type: unspecified Qualified Code(s): N17.9 - Acute kidney failure, unspecified Code(s): N17.9 - Acute kidney failure, unspecified Status: Acute Assessment and Plan: Urinary output has decreased over the last 24 hours. CK higher today. patient was evaluated by fuse cup expander. (4) Peripheral vascular disease: Code(s): I73.9 - Peripheral vascular disease, unspecified Status: Acute Assessment and Plan: Patient has on clinical grounds peripheral vascular disease with worsening of bluish discoloration of lower extremities from mid thighs down to toes. This is probably the source of the elevated CK. Discussed with Dr. Omer the need to get vascular surgery consultation. Subjective Date/time seen: 10/01/21 09:05 Patient without any new respiratory symptoms. Still complaining of shortness of breath. No fever chills. Shortness of breath worse with any activity. Undergoing workup for acute renal failure. Complaining of thigh pain. She no longer has chest pain. Review of Systems Review of Systems: Patient complaining of some thigh pain. Discoloration of lower extremities with worsening over the last couple days. Exam Narrative: GENERAL APPEARANCE: Well developed, well nourished, alert and cooperative, and appears to be in in mild respiratory distress while on supplemental oxygen. HEENT: Sclerae anicteric and conjunctivae pink and moist. Extraocular movements were intact and pupils were equal, round; Dry oral mucosa NECK: Supple. There was no thyroid enlargement, and no tenderness, or masses were felt. CHEST: increased AP diameter and normal contour without any kyphoscoliosis. LUNGS: Auscultation of the lungs revealed distant breath sounds with expiratory wheezing bilaterally. Less wheezing than before. CARDIAC: There was a regular rate and rhythm without any murmurs, gallops, rubs. ABDOMEN: Soft and nontender with normal bowel sounds. EXTREMITIES: Bluish discoloration of lower extremities from mid thigh down to toes. Extremities feel cold. NEUROLOGIC: Alert and oriented x 3. Normal affect. Objective Data Vital Signs Vital Signs: Vital Signs - 24 hr 09/30/21 11:06 09/30/21 11:17 09/30/21 12:51 Temperature 36.6 C Pulse Rate 84 84 Respiratory Rate 20 20 Blood Pressure Pulse Oximetry 91 09/30/21 14:00 09/30/21 14:49 09/30/21 14:54 Temperature 36.2 C L Pulse Rate 96 112 H 102 H Respiratory Rate 20 16 16 Blood Pressure 126/72 Pulse Oximetry 90 09/30/21 21:00 09/30/21 21:36 10/01/21 01:30 Temperature 36.6 C Pulse Rate 99 96 Respiratory Rate 20 16 Blood Pressure 144/55 H Pulse Oximetry 92 92 10/01/21 05:31 Temperature 36.7 C Pulse Rate 95 Respiratory Rate 18 Blood Pressure 111/88 Pulse Oximetry 100 Intake/Output Intake/Output: Intake & Output 09/28/21 09/29/21 09/30/21 10/01/21 23:59 23:59 23:59 23:59 Intake Total 1360 2530 3675 Output Total 100 1100 200 200 Balance 1260 1430 3475 -200 Meds/Results Medications: Active Medications Generic Name Dose Route Start Last Admin Trade Name Freq PRN Reason Stop Dose Admin Albuterol 2 puff 09/28/21 02:39 Albuterol Sulfate (*Sp) Aerosol 1
[2021-10-01 10:22] LABS: Basophils Percent Auto 0.1 % (0.2-1.2); Hematocrit 40.1 % (37.0-47.0); Hemoglobin 13.6 g/dL (12.0-15.0); Immature Granulocyte Absolute 0.18 K/mm3 (0.00-0.031); Lymphocytes Absolute Auto 0.51 K/mm3 (0.9-3.2); Lymphocytes Percent Auto 2.9 % (18.3-44.2); Mean Corpuscular HGB Conc 33.9 g/dl (32-36); Mean Corpuscular Hemoglobin 31.8 pg (26-34); Mean Corpuscular Volume 93.7 fl (80-100); Mean Platelet Volume 8.5 fl (7.4-10.4); Monocytes Absolute Auto 2.2 K/mm3 (0.1-0.6); Monocytes Percent Auto 12.4 % (2.6-8.5); Neutrophils Absolute Auto 14.7 K/mm3 (1.3-6.7); Neutrophils Percent Auto 83.6 % (45.5-73.1); Platelet Count Result 261 k/mm3 (150-375); Red Blood Count 4.28 M/mm3 (4.2-5.4); Red Cell Distribution Width 15.5 % (11.5-14.5); White Blood Count 17.6 K/mm3 (4.5-10.0)
--- NOTE | 2021-10-01 11:22 | PCRCNOTE ---
Window of time for administration has passed. See next scheduled administration.
--- NOTE | 2021-10-01 11:25 | PCRCNOTE ---
Window of time for administration has passed. See next scheduled administration.
[2021-10-01] MEDS: DOCUSATE SODIUM 100 MG CAPSULE PO ×2 (11:31→21:23)
--- NOTE | 2021-10-01 13:54 | PM.PNNEP ---
Progress Note: A&P Assessment and Plan (1) Acute renal failure: Qualifiers: Acute renal failure type: unspecified Qualified Code(s): N17.9 - Acute kidney failure, unspecified Code(s): N17.9 - Acute kidney failure, unspecified Status: Acute Assessment and Plan: The patient has acute renal failure. CK is elevated at 2314 urine electrolytes are pre renal renal sonogram is unremarkable This is probably multifactorial., due to contrast, possibly CPK, pre renal factors. Will try fluids once again. Will use bicarbonate in the fluid. Because she has some swelling I am going to nikki that with Lasix. This will also help with her sodium. (2) Hyponatremia: Code(s): E87.1 - Hypo-osmolality and hyponatremia Status: Acute Assessment and Plan: The patient has hyponatremia. she has had this in the past frequently. Cortisol level is low but she is on steroids TSH was not done. Will reorder. Serum, urine osmolality and SPEP are pending urine electrolytes are pre renal Sodium level is up to 125. Will try fluids plus diuretics. (3) Rhabdomyolysis: Code(s): M62.82 - Rhabdomyolysis Status: Acute Assessment and Plan: The patient has an elevated CK. Since this judy will give her bicarbonate fluids. (4) Benign essential hypertension: Code(s): I10 - Essential (primary) hypertension Status: Acute Assessment and Plan: Patient has chronic hypertension. Her blood pressure is under good control. (5) Chronic respiratory failure with hypoxia: Code(s): J96.11 - Chronic respiratory failure with hypoxia Status: Acute Assessment and Plan: She is getting inhalers, steroids, and supportive care. (6) ASHD (arteriosclerotic heart disease): Code(s): I25.10 - Atherosclerotic heart disease of [place] coronary artery without angina pectoris Status: Acute Assessment and Plan: She is not having any chest pain (7) Atrial fibrillation: Code(s): I48.91 - Unspecified atrial fibrillation Status: Acute Assessment and Plan: She is in sinus rhythm now. Heart rate is good. Subjective Date/time seen: 10/01/21 13:54 Interval history: Patient is feeling about the same. She has a little bit of swelling. No chest pain. She is confused about fluids. I try to clarify the situation. Fluid restriction is appropriate currently because of the low sodium. Review of Systems Cardiovascular: Cardiovascular: Reports no additional cardiovascular complaints Respiratory: Respiratory: Reports no additional respiratory complaints Gastrointestinal: Gastrointestinal: Reports no additional gastrointestinal complaints Genitourinary: Genitourinary: Reports no additional female genitourinary complaints Exam Narrative: WDWN in NAD skin no rash head ncat lungs symmetric and wheezy cor reg no rub abd BS+ nontender and soft ext no edema. Objective Data Vital Signs Vital Signs: Vital Signs - 24 hr 09/30/21 14:00 09/30/21 14:49 09/30/21 14:54 Temperature 36.2 C L Pulse Rate 96 112 H 102 H Respiratory Rate 20 16 16 Blood Pressure 126/72 Pulse Oximetry 90 09/30/21 21:00 09/30/21 21:36 10/01/21 01:30 Temperature 36.6 C Pulse Rate 99 96 Respiratory Rate 20 16 Blood Pressure 144/55 H Pulse Oximetry 92 92 10/01/21 05:31 10/01/21 10:36 10/01/21 11:43 Temperature 36.7 C Pulse Rate 95 92 Respiratory Rate 18 18 Blood Pressure 111/88 Pulse Oximetry 100 100 10/01/21 11:54 Temperature Pulse Rate 96 Respiratory Rate 18 Blood Pressure Pulse Oximetry Intake/Output Intake/Output: Intake & Output 09/28/21 09/29/21 09/30/21 10/01/21 23:59 23:59 23:59 23:59 Intake Total 1360 2530 3675 120 Output Total 100 1100 200 200 Balance 1260 1430 3475 -80 Meds/Results Medications: Active Medications Generic Name Dose Route Start Last A
[2021-10-01] MEDS: SODIUM BICARBONATE 8.4% 150 MEQ in DEXTROSE 5% 1,000 ML 950 ML 50 MEQ IV CONT (15:00)
[2021-10-01] MEDS: ALBUTEROL SULFATE (*SP) AEROSOL 1 PUFF 2 PUFF INHALATION (15:00)
[2021-10-01 16:00] LABS: Sodium 119 mmol/L (137-145)
[2021-10-01 17:16] LABS: Thyroid Stimulating Hormone Reflex 0.832 uIU/mL (0.465-4.68)
--- NOTE | 2021-10-01 20:31 | PHAR ---
HOME MED VERIFIED BY PHARMACY TRULANCE 3MG TABLET TAKE 1 TABLET PO DAILY PRN CONSTIPATION RX#[id number]
[2021-10-01] MEDS: ALPRAZolam (*CRX) 0.5 MG TABLET PO (21:23)
[2021-10-01] MEDS: FUROSEMIDE 20 MG TABLET PO (21:24)
[2021-10-01 21:27] LABS: Sodium 120 mmol/L (137-145)
[2021-10-02] MEDS: LEVALBUTEROL NEB 1.25 MG/3 ML 0.63 MG INHALATION ×4 (03:16→22:41)
[2021-10-02 05:28] VITALS: BP 144/70; PULSE 97; RESP 20; TEMP 36.9; O2SAT 91
[2021-10-02] MEDS: FUROSEMIDE 20 MG TABLET PO ×3 (06:29→20:12)
[2021-10-02 06:53] LABS: Basophils Percent Auto 0.2 % (0.2-1.2); Hematocrit 39.1 % (37.0-47.0); Hemoglobin 13.1 g/dL (12.0-15.0); Immature Granulocyte Absolute 0.11 K/mm3 (0.00-0.031); Immature Granulocyte Percent A 0.9 % (0-0.5); Lymphocytes Percent Auto 3.9 % (18.3-44.2); Mean Corpuscular HGB Conc 33.5 g/dl (32-36); Mean Corpuscular Hemoglobin 32.2 pg (26-34); Mean Corpuscular Volume 96.1 fl (80-100); Mean Platelet Volume 8.7 fl (7.4-10.4); Monocytes Absolute Auto 1.7 K/mm3 (0.1-0.6); Monocytes Percent Auto 13.7 % (2.6-8.5); Neutrophils Absolute Auto 10.4 K/mm3 (1.3-6.7); Neutrophils Percent Auto 81.3 % (45.5-73.1); Platelet Count Result 195 k/mm3 (150-375); Red Blood Count 4.07 M/mm3 (4.2-5.4); Red Cell Distribution Width 15.4 % (11.5-14.5); White Blood Count 12.7 K/mm3 (4.5-10.0)
[2021-10-02 07:22] LABS: Alanine Aminotransferase 59 U/L (4-35); Albumin Level 4.4 g/dL (3.5-5.1); Alkaline Phosphatase 61 U/L (38-126); Anion Gap 9 mmol/L (8-16); Aspartate Amino Transferase 126 U/L (14-36); Bilirubin,Total 0.9 mg/dL (0.2-1.3); Blood Urea Nitrogen 82 mg/dL (7-17); Calcium 8.8 mg/dL (8.4-10.2); Carbon Dioxide 27 mmol/L (22-30); Chloride 88 mmol/L (98-107); Creatine Kinase 1380 U/L (30-135); Estimated CRCL calculation 18 ml/min; Estimated Glomerular Filt Rate 17; Glucose 102 mg/dL (65-110); Phosphorus 6.5 mg/dL (2.5-4.5); Potassium 4.6 mmol/L (3.4-5.0); Sodium 124 mmol/L (137-145)
[2021-10-02] MEDS: MORPHINE SULFATE (*CRX) 4 MG/ML INJ IV PUSH ×2 (08:38→20:12)
[2021-10-02] MEDS: ALPRAZolam (*CRX) 0.5 MG TABLET PO ×3 (08:38→23:10)
--- NOTE | 2021-10-02 09:11 | PM.IMPN ---
Progress Note: A&P Assessment and Plan (1) Acute renal failure: Qualifiers: Acute renal failure type: unspecified Qualified Code(s): N17.9 - Acute kidney failure, unspecified Code(s): N17.9 - Acute kidney failure, unspecified Status: Acute Assessment and Plan: Patient's renal function normal with BUN 9, Cr 0.7 and CrCl 65 on admission. She had a CTA 09/29. Her oliguric ANEL probably multifactorial from rhabdomyolysis, dehydration, contrast, Lasix and/or renal artery stenosis. Urine studies consistent with pre-renal and Ueos negative; complement normal; UA clear except for 3-5 RBC (from the rhabdo); Renal US normal. Nephrology consulted. Cozaar and Crestor held. Treated with IV fluids initially, held initially then resumed with bicarb. Lasix IV started. BUN higher at 82 but Cr slightly better at 2.7 now; UOP 400; metabolic acidosis with plasma bicarb at 18 that has improved with bicarb. Will continue Lasix. Consider ischemic changes to the kidneys so will add renal artery US. (2) Rhabdomyolysis: Code(s): M62.82 - Rhabdomyolysis Status: Acute Assessment and Plan: Patient with ANEL as above. TCK peaked at 2314. Related to Crestor? Related to ischemia? Rhabdo possibly playing a part in her ANEL. IV fluids were stopped but now resumed with bicarb added. LFTs about the same and related to the rhabdo and less likely related to liver pathology. Continue daily TCK levels and LFTs. Continue to hold Crestor (3) Acute and chronic respiratory failure with hypoxia: Code(s): J96.21 - Acute and chronic respiratory failure with hypoxia Status: Acute Assessment and Plan: Patient with chronic respiratory failure on 2-3L at rest and up to 4L with exertion at home. She presents with SOB with ABG 7.44/50/88 on BiPAP. She had elevated carboxyhemo 3.9%. She said she no longer smokes since March and has electric furnace and a working CO monitor. She was weaned to 2-3L but now up to 4L; wheezing improved. CTA chest negative for PE. Continue steroids and neb treatments. Pulmonary following and appreciate their input. (4) AAA (abdominal aortic aneurysm): Qualifiers: Presence of rupture: without rupture Qualified Code(s): I71.4 - Abdominal aortic aneurysm, without rupture Code(s): I71.4 - Abdominal aortic aneurysm, without rupture Status: Acute Assessment and Plan: Noted to have AAA. CTA abd and LE Oct 2020 showing a 5.2 x 3.8 cm fusiform aneurysm of the distal descending thoracic aorta and a 3.3 x 2.8 cm fusiform infrarenal abdominal aortic aneurysm. She also has PAD with CTA showing: -- moderate stenosis of the bilateral external iliac arteries and mild stenosis of the bilateral internal iliac arteries. -- moderate stenosis in the Right superficial femoral artery. The popliteal artery and tibioperoneal trunk demonstrate calcified atherosclerosis without significant stenosis. There is a three-vessel runoff at the ankle. -- there is a 10 cm occluded segment of the Left mid superficial femoral artery. The popliteal artery and tibial peroneal trunk demonstrate calcified atherosclerosis without significant stenosis. There is a three-vessel runoff at the ankle. CTA of the chest 09/29/21 showing enlarging aneurysm. She now has ANEL so no plans to check aorta until ANEL resolves. Continue Plavix/ASA. No smoking is imperative. Hold Crestor due to rhabdo. Anup discuss with radiology about best test to see if aneurysm is affecting the kidneys. Discussed case with radiology who reviewed old CTA from October and recent CTA chest 09/29/21. No significant change in the atherosclerotic findings of the renal arteries. He felt the biggest aortic aneurysmal changes was seen by the CTA on 09/29 and that it was only slightly worsened. Legs look worse possibly related to them being dependent but having more pain now. Will check arterial US LE. (5) COPD exacerbation: Code(s): J44.1 - Chronic obst
[2021-10-02] MEDS: PANTOPRAZOLE 40 MG TABLET PO ×2 (09:44→20:11)
[2021-10-02] MEDS: predniSONE 20 MG TABLET 40 MG PO (09:44)
[2021-10-02] MEDS: buPROPion HCL 75 MG TABLET 150 MG PO ×2 (09:44→20:11)
[2021-10-02] MEDS: DOCUSATE SODIUM 100 MG CAPSULE PO ×2 (09:45→20:11)
[2021-10-02] MEDS: ENOXAPARIN 30 MG/0.3 ML SYRINGE SUB-Q (09:45)
[2021-10-02] MEDS: SODIUM CHLORIDE 1 GM TABLET PO ×2 (09:45→20:12)
[2021-10-02] MEDS: CLOPIDOGREL BISULFATE 75 MG TABLET PO (09:45)
[2021-10-02] MEDS: FLUTICASONE PROPIONATE 0.05% NA SPR 16 GM BTL (*BKC) 1 SPRAY NASAL ×2 (09:45→20:11)
[2021-10-02] MEDS: NICOTINE (*PBKC) 21 MG PATCH 1 PATCH TRANSDERM (09:45)
--- NOTE | 2021-10-02 09:52 | PM.PNPUL ---
Progress Note: A&P Assessment and Plan (1) Acute exacerbation of chronic obstructive pulmonary disease: Code(s): J44.1 - Chronic obstructive pulmonary disease with (acute) exacerbation Status: Acute Assessment and Plan: Respiratory status unchanged over the last 24 hours. Expiratory wheezing less on today's auscultation. IV steroids were discontinued, patient was placed on oral prednisone. Continue with same treatment for COPD exacerbation. (2) Chronic respiratory failure with hypoxia: Code(s): J96.11 - Chronic respiratory failure with hypoxia Status: Acute (3) Acute renal failure: Qualifiers: Acute renal failure type: unspecified Qualified Code(s): N17.9 - Acute kidney failure, unspecified Code(s): N17.9 - Acute kidney failure, unspecified Status: Acute Assessment and Plan: Urinary output has decreased over the last 24 hours. CK higher today. patient was evaluated by product marketing engineer. (4) Peripheral vascular disease: Code(s): I73.9 - Peripheral vascular disease, unspecified Status: Acute Assessment and Plan: Patient has on clinical grounds peripheral vascular disease with worsening of bluish discoloration of lower extremities from mid thighs down to toes. This is probably the source of the elevated CK. Discussed with Dr. Omer the need to get vascular surgery consultation. Subjective Date/time seen: 10/02/21 09:52 Patient without any new respiratory symptoms. Afebrile, with less shortness of breath. complaining of pain around her knees bilaterally. Lower extremities still with bluish discoloration, especially when seated Review of Systems Review of Systems: All systems reviewed & are unremarkable except as noted in HPI and below (H and P and below) Exam Narrative: GENERAL APPEARANCE: Well developed, well nourished, alert and cooperative, and appears to be in in mild respiratory distress while on supplemental oxygen. HEENT: Sclerae anicteric and conjunctivae pink and moist. Extraocular movements were intact and pupils were equal, round; Dry oral mucosa NECK: Supple. There was no thyroid enlargement, and no tenderness, or masses were felt. CHEST: increased AP diameter and normal contour without any kyphoscoliosis. LUNGS: Auscultation of the lungs revealed distant breath sounds with expiratory wheezing bilaterally. Less wheezing than before. CARDIAC: There was a regular rate and rhythm without any murmurs, gallops, rubs. ABDOMEN: Soft and nontender with normal bowel sounds. EXTREMITIES: Bluish discoloration of lower extremities from mid thigh down to toes. Extremities feel cold. NEUROLOGIC: Alert and oriented x 3. Normal affect. Objective Data Vital Signs Vital Signs: Vital Signs - 24 hr 10/01/21 10:36 10/01/21 11:43 10/01/21 11:54 Temperature Pulse Rate 92 96 Respiratory Rate 18 18 Blood Pressure Pulse Oximetry 100 10/01/21 14:38 10/01/21 20:00 10/01/21 20:53 Temperature 36.9 C Pulse Rate 92 114 H Respiratory Rate 22 H 18 Blood Pressure 126/56 L Pulse Oximetry 95 94 94 10/01/21 21:43 10/02/21 05:28 Temperature 36.7 C 36.9 C Pulse Rate 113 H 97 Respiratory Rate 20 20 Blood Pressure 152/78 H 144/70 H Pulse Oximetry 94 91 Intake/Output Intake/Output: Intake & Output 09/29/21 09/30/21 10/01/21 10/02/21 23:59 23:59 23:59 23:59 Intake Total 2530 3675 600 Output Total 1100 200 400 200 Balance 1430 3475 200 -200 Meds/Results Medications: Active Medications Generic Name Dose Route Start Last Admin Trade Name Freq PRN Reason Stop Dose Admin Albuterol 2 puff 09/28/21 02:39 10/01/21 15:00 Albuterol Sulfate (*Sp) Aerosol 1 Puff INHALATION 2 puff Q2HRT PRN Administration Shortness Of Breath Alprazolam 0.5 mg 09/28/21 02:39 10/02/21 08:38 Alprazolam (*Crx) 0.5 Mg Tablet PO 0.5 mg TID PRN Administration anxiety Benzonatate 200 mg 09/28/21 02:3
[2021-10-02 10:00] VITALS: O2SAT 92
[2021-10-02 10:20] VITALS: PULSE 108; RESP 20
[2021-10-02] MEDS: FLUTICASONE/UMECLIDIN/VILANTER 200-62.5-25 MCG ELLIPTA 1 PUFF INHALATION (10:20)
[2021-10-02 12:35] LABS: Sodium 122 mmol/L (137-145)
--- NOTE | 2021-10-02 12:59 | PCPTNOTE ---
Patient declined PT stating she had increased SOB today. PT will continue to follow per plan of care.
--- NOTE | 2021-10-02 13:30 | WPDCDIQUERY2 ---
CDI Query Clarification Request -Rhabdomyolysis has been documented Please further specify if rhabdomyolysis is traumatic, non traumatic or unable to determine.
--- NOTE | 2021-10-02 14:46 | PM.PNNEP ---
Progress Note: A&P Assessment and Plan (1) Acute renal failure: Qualifiers: Acute renal failure type: unspecified Qualified Code(s): N17.9 - Acute kidney failure, unspecified Code(s): N17.9 - Acute kidney failure, unspecified Status: Acute Assessment and Plan: The patient has acute renal failure. CK is elevated at 2314 yesterday, but now down to 13 80. urine electrolytes are pre renal renal sonogram is unremarkable This is probably multifactorial., due to contrast, possibly CPK, pre renal factors. Getting IV fluids with bicarb now. Swelling seems to be about the same. (2) Hyponatremia: Code(s): E87.1 - Hypo-osmolality and hyponatremia Status: Acute Assessment and Plan: The patient has hyponatremia. she has had this in the past frequently. Cortisol level is low but she is on steroids TSH was not done. Will reorder. Serum, urine osmolality and SPEP are pending urine electrolytes are pre renal Sodium level is up and down in the low 20s. She is getting fluids plus diuretics. (3) Rhabdomyolysis: Code(s): M62.82 - Rhabdomyolysis Status: Acute Assessment and Plan: The patient has an elevated CK. This is better. (4) Benign essential hypertension: Code(s): I10 - Essential (primary) hypertension Status: Acute Assessment and Plan: Patient has chronic hypertension. Her blood pressure is under good control. (5) Chronic respiratory failure with hypoxia: Code(s): J96.11 - Chronic respiratory failure with hypoxia Status: Acute Assessment and Plan: She is getting inhalers, steroids, and supportive care. (6) ASHD (arteriosclerotic heart disease): Code(s): I25.10 - Atherosclerotic heart disease of [place] coronary artery without angina pectoris Status: Acute Assessment and Plan: She is not having any chest pain (7) Atrial fibrillation: Code(s): I48.91 - Unspecified atrial fibrillation Status: Acute Assessment and Plan: She is in sinus rhythm now. Heart rate is good. Subjective Date/time seen: 10/02/21 14:46 Interval history: Patient is feeling about the same. Generally uncomfortable. Frequently short of breath. She has a little bit of swelling. No chest pain. Exam Narrative: WDWN in NAD skin no rash or subQ nodules. Violaceous hands and feet head ncat lungs symmetric and wheezy cor reg no rub or gallop abd BS+ nontender and soft ext 1+ edema. Objective Data Vital Signs Vital Signs: Vital Signs - 24 hr 10/01/21 20:00 10/01/21 20:53 10/01/21 21:43 Temperature 36.7 C Pulse Rate 114 H 113 H Respiratory Rate 18 20 Blood Pressure 152/78 H Pulse Oximetry 94 94 94 10/02/21 05:28 10/02/21 10:00 10/02/21 10:20 Temperature 36.9 C Pulse Rate 97 108 H Respiratory Rate 20 20 Blood Pressure 144/70 H Pulse Oximetry 91 92 Intake/Output Intake/Output: Intake & Output 09/29/21 09/30/21 10/01/21 10/02/21 23:59 23:59 23:59 23:59 Intake Total 2530 3675 600 200 Output Total 1100 200 400 200 Balance 1430 3475 200 0 Meds/Results Medications: Active Medications Generic Name Dose Route Start Last Admin Trade Name Freq PRN Reason Stop Dose Admin Albuterol 2 puff 09/28/21 02:39 10/01/21 15:00 Albuterol Sulfate (*Sp) Aerosol 1 Puff INHALATION 2 puff Q2HRT PRN Administration Shortness Of Breath Alprazolam 0.5 mg 09/28/21 02:39 10/02/21 08:38 Alprazolam (*Crx) 0.5 Mg Tablet PO 0.5 mg TID PRN Administration anxiety Benzonatate 200 mg 09/28/21 02:39 09/29/21 08:42 Benzonatate 100 Mg Capsule PO 200 mg TID PRN Administration Cough Bisacodyl 10 mg 10/01/21 09:27 Bisacodyl 10 Mg Suppository RECTAL QAM PRN Constipation Bupropion HCl 150 mg 09/28/21 09:00 10/02/21 09:44 Bupropion Hcl 75 Mg Tablet PO 150 mg Q12HR JOSE Administration
[2021-10-02 16:29] VITALS: BP 154/74; PULSE 100; RESP 24; TEMP 36.1; O2SAT 92
[2021-10-02 18:44] LABS: Sodium 126 mmol/L (137-145)
[2021-10-02 20:00] VITALS: O2SAT 92
[2021-10-02 22:00] VITALS: BP 143/90; PULSE 100; RESP 22; TEMP 36; O2SAT 91
[2021-10-02] MEDS: SODIUM BICARBONATE 8.4% 150 MEQ in DEXTROSE 5% 1,000 ML 950 ML 50 MEQ IV CONT (23:36)
[2021-10-03] VITALS (12 sets, daily range): BP systolic 144–160; BP diastolic 62–69; PULSE 78–106; RESP 18–22; TEMP 35.5–36.4; O2SAT 91–98
[2021-10-03 01:05] LABS: Sodium 127 mmol/L (137-145)
[2021-10-03] MEDS: MORPHINE SULFATE (*CRX) 4 MG/ML INJ IV PUSH ×5 (03:35→19:00)
[2021-10-03] MEDS: LEVALBUTEROL NEB 1.25 MG/3 ML 0.63 MG INHALATION ×3 (03:38→20:43)
[2021-10-03] MEDS: ALPRAZolam (*CRX) 0.5 MG TABLET PO ×3 (05:40→21:10)
[2021-10-03] MEDS: FUROSEMIDE 20 MG TABLET PO ×3 (05:40→21:10)
[2021-10-03 07:24] LABS: Basophils Percent Auto 0.1 % (0.2-1.2); Eosinophils Percent Auto 0.2 % (0-4.4); Hematocrit 38.7 % (37.0-47.0); Hemoglobin 12.9 g/dL (12.0-15.0); Immature Granulocyte Absolute 0.05 K/mm3 (0.00-0.031); Immature Granulocyte Percent A 0.5 % (0-0.5); Lymphocytes Absolute Auto 0.65 K/mm3 (0.9-3.2); Lymphocytes Percent Auto 6.3 % (18.3-44.2); Mean Corpuscular HGB Conc 33.3 g/dl (32-36); Mean Corpuscular Hemoglobin 31.7 pg (26-34); Mean Corpuscular Volume 95.1 fl (80-100); Mean Platelet Volume 9.1 fl (7.4-10.4); Monocytes Absolute Auto 1.5 K/mm3 (0.1-0.6); Monocytes Percent Auto 14.5 % (2.6-8.5); Neutrophils Absolute Auto 8.1 K/mm3 (1.3-6.7); Neutrophils Percent Auto 78.4 % (45.5-73.1); Platelet Count Result 196 k/mm3 (150-375); Red Blood Count 4.07 M/mm3 (4.2-5.4); Red Cell Distribution Width 14.7 % (11.5-14.5); White Blood Count 10.4 K/mm3 (4.5-10.0)
[2021-10-03 07:35] LABS: Alanine Aminotransferase 69 U/L (4-35); Albumin Level 4.2 g/dL (3.5-5.1); Alkaline Phosphatase 74 U/L (38-126); Anion Gap 8 mmol/L (8-16); Aspartate Amino Transferase 130 U/L (14-36); Bilirubin,Total 0.9 mg/dL (0.2-1.3); Blood Urea Nitrogen 65 mg/dL (7-17); Calcium 8.9 mg/dL (8.4-10.2); Carbon Dioxide 30 mmol/L (22-30); Chloride 89 mmol/L (98-107); Creatine Kinase 1478 U/L (30-135); Estimated CRCL calculation 33 ml/min; Estimated Glomerular Filt Rate 37; Glucose 112 mg/dL (65-110); Magnesium 2.5 mg/dL (1.6-2.3); Phosphorus 3.5 mg/dL (2.5-4.5); Potassium 3.6 mmol/L (3.4-5.0); Sodium 127 mmol/L (137-145)
[2021-10-03] MEDS: ENOXAPARIN 30 MG/0.3 ML SYRINGE SUB-Q (08:59)
[2021-10-03] MEDS: DOCUSATE SODIUM 100 MG CAPSULE PO ×2 (08:59→21:10)
[2021-10-03] MEDS: CLOPIDOGREL BISULFATE 75 MG TABLET PO (08:59)
[2021-10-03] MEDS: FLUTICASONE PROPIONATE 0.05% NA SPR 16 GM BTL (*BKC) 1 SPRAY NASAL (09:00)
[2021-10-03] MEDS: predniSONE 20 MG TABLET 40 MG PO (09:00)
[2021-10-03] MEDS: buPROPion HCL 75 MG TABLET 150 MG PO ×2 (09:00→21:10)
[2021-10-03] MEDS: NICOTINE (*PBKC) 21 MG PATCH 1 PATCH TRANSDERM (09:00)
[2021-10-03] MEDS: PANTOPRAZOLE 40 MG TABLET PO ×2 (09:01→21:10)
[2021-10-03] MEDS: SODIUM CHLORIDE 1 GM TABLET PO ×2 (09:01→21:10)
--- NOTE | 2021-10-03 09:51 | PM.IMPN ---
Progress Note: A&P Assessment and Plan (1) Acute renal failure: Qualifiers: Acute renal failure type: unspecified Qualified Code(s): N17.9 - Acute kidney failure, unspecified Code(s): N17.9 - Acute kidney failure, unspecified Status: Acute Assessment and Plan: Probably multifactorial related to contrast induced and rhabdomyolysis treated with bicarb drip currently also on oral Lasix Nephrology follow-up Ultrasound renal no significant finding. (2) Rhabdomyolysis: Code(s): M62.82 - Rhabdomyolysis Status: Acute Assessment and Plan: Patient with ANEL as above. TCK peaked at 2314. Most likely related to rhabdomyolysis probably worsened by Crestor Continue to hold Crestor (3) Acute and chronic respiratory failure with hypoxia: Code(s): J96.21 - Acute and chronic respiratory failure with hypoxia Status: Acute Assessment and Plan: Was likely related to COPD exacerbation Patient with chronic respiratory failure on 2-3L at rest and up to 4L with exertion at home. She presents with SOB with ABG 7.44/50/88 on BiPAP. She had elevated carboxyhemo 3.9%. She said she no longer smokes since March and has electric furnace and a working CO monitor. She was weaned to 2-3L but now up to 4L; wheezing improved. CTA chest negative for PE. Continue steroids and neb treatments. Pulmonary following and appreciate their input. (4) AAA (abdominal aortic aneurysm): Qualifiers: Presence of rupture: without rupture Qualified Code(s): I71.4 - Abdominal aortic aneurysm, without rupture Code(s): I71.4 - Abdominal aortic aneurysm, without rupture Status: Acute Assessment and Plan: Noted to have AAA. CTA abd and LE Oct 2020 showing a 5.2 x 3.8 cm fusiform aneurysm of the distal descending thoracic aorta and a 3.3 x 2.8 cm fusiform infrarenal abdominal aortic aneurysm. She also has PAD with CTA showing: -- moderate stenosis of the bilateral external iliac arteries and mild stenosis of the bilateral internal iliac arteries. -- moderate stenosis in the Right superficial femoral artery. The popliteal artery and tibioperoneal trunk demonstrate calcified atherosclerosis without significant stenosis. There is a three-vessel runoff at the ankle. -- there is a 10 cm occluded segment of the Left mid superficial femoral artery. The popliteal artery and tibial peroneal trunk demonstrate calcified atherosclerosis without significant stenosis. There is a three-vessel runoff at the ankle. CTA of the chest 09/29/21 showing enlarging aneurysm. She now has ANEL so no plans to check aorta until ANEL resolves. Continue Plavix/ASA. No smoking is imperative. Hold Crestor due to rhabdo. Anup discuss with radiology about best test to see if aneurysm is affecting the kidneys. Discussed case with radiology who reviewed old CTA from October and recent CTA chest 09/29/21. No significant change in the atherosclerotic findings of the renal arteries. He felt the biggest aortic aneurysmal changes was seen by the CTA on 09/29 and that it was only slightly worsened. Legs look worse possibly related to them being dependent but having more pain now. Will check arterial US LE. (5) COPD exacerbation: Code(s): J44.1 - Chronic obstructive pulmonary disease with (acute) exacerbation Status: Acute Assessment and Plan: Probably nearing end-stage COPD. Continue Xopenex, Trelegy, Daliresp and Prednisone. No feeling of improvement but less wheezing today with improved air exchange. Follow. Appreciate Pulmonary input. (6) Hyponatremia: Code(s): E87.1 - Hypo-osmolality and hyponatremia Status: Acute Assessment and Plan: Sodium 122 on admission. Probably related to dehydration treated with IV fluid nephrology following. (7) Obstructive sleep apnea: Code(s): G47.33 - Obstructive sleep apnea (adult) (pediatric) Status: Acute Assessment and Plan: Patient
--- NOTE | 2021-10-03 10:17 | PCRCNOTE ---
Window of time for administration has passed. See next scheduled administration.
--- NOTE | 2021-10-03 13:27 | P.PNNP_ITS ---
Progress Note: A&P Assessment and Plan (1) Acute renal failure: Qualifiers: Acute renal failure type: unspecified Qualified Code(s): N17.9 - Acute kidney failure, unspecified Code(s): N17.9 - Acute kidney failure, unspecified Status: Acute Assessment and Plan: * improving * multifactorial etiology: * contrast exposure * pre-renal factors * elevated CPK * evaluation to date: * urine electrolytes are pre-renal * mildly elevated CPK (but down trending) * renal ultrasound normal * s/p bicarb IVFs * follow repeat labs and UOP (2) Hyponatremia: Code(s): E87.1 - Hypo-osmolality and hyponatremia Status: Chronic Assessment and Plan: * somewhat of a chronic issue/problem * testing to date: * cortisol low but on steroids * TSH okay * urine electrolytes prerenal * SPEP/UPEP/serum + urine osmolality pending * on low dose diuretics and salt tablets * holding IVFs given concerns of volume overload * follow trend of sodium level (3) Rhabdomyolysis: Code(s): M62.82 - Rhabdomyolysis Status: Acute Assessment and Plan: * improving * CPK elevated but trending down * follow trend (4) Chronic respiratory failure with hypoxia: Code(s): J96.11 - Chronic respiratory failure with hypoxia Status: Chronic Assessment and Plan: * conitnue inhalers and steroids * continue supportive therapy (5) Benign essential hypertension: Code(s): I10 - Essential (primary) hypertension Status: Chronic Assessment and Plan: * reasonable control at this time * follow trend of hemodynamics Will continue to follow. Subjective Date/time seen: 10/03/21 13:27 Major complaints is that of swelling/edema in upper arms and lower extremities; sodium seems to be doing better; respiratory status seems stable (albeit tenuous); no other acute issues/events overnight or earlier this morning; no acute distress voiced. Exam Narrative: General: elderly female in NAD Heart: normal S1 and S2; no rub Lungs: coarse with wheezes noted Abdomen: soft, nontender, nondistended, positive bowel sounds Extremities: no cyanosis or clubbing; 1 - 2+ edema Skin: warm and dry Objective Data Vital Signs Vital Signs: Vital Signs Temp Pulse Resp BP Pulse Ox 10/03/21 08:00 100 22 H 91 10/03/21 06:00 36.4 C 100 22 H 160/62 H 91 10/03/21 03:48 100 18 10/03/21 03:38 96 18 10/02/21 22:00 36.0 C L 100 22 H 143/90 H 91 10/02/21 20:00 92 10/02/21 16:29 36.1 C L 100 24 H 154/74 H 92 Intake/Output Intake/Output: Intake & Output 09/30/21 10/01/21 10/02/21 10/03/21 23:59 23:59 23:59 23:59 Intake Total 3675 600 1680 140 Output Total 377 500 7174 1600 Balance 3475 200 680 -1460 Meds/Results Medications: Active Medications Generic Name Dose Route Start Last Admin Trade Name Freq PRN Reason Stop Dose Admin Albuterol 2 puff 09/28/21 02:39 10/01/21 15:00 Albuterol Sulfate (*Sp) Aerosol 1 Puff INHALATION 2 puff Q2HRT PRN Administration Shortness Of Breath Alprazolam 0.5 mg 09/28/21 02:39 10/03/21 05:40 Alprazolam (*Crx) 0.5 Mg
--- NOTE | 2021-10-03 13:27 | PM.PNNEP ---
Progress Note: A&P Assessment and Plan (1) Acute renal failure: Qualifiers: Acute renal failure type: unspecified Qualified Code(s): N17.9 - Acute kidney failure, unspecified Code(s): N17.9 - Acute kidney failure, unspecified Status: Acute Assessment and Plan: improving multifactorial etiology: contrast exposure pre-renal factors elevated CPK evaluation to date: urine electrolytes are pre-renal mildly elevated CPK (but down trending) renal ultrasound normal s/p bicarb IVFs follow repeat labs and UOP (2) Hyponatremia: Code(s): E87.1 - Hypo-osmolality and hyponatremia Status: Chronic Assessment and Plan: somewhat of a chronic issue/problem testing to date: cortisol low but on steroids TSH okay urine electrolytes prerenal SPEP/UPEP/serum + urine osmolality pending on low dose diuretics and salt tablets holding IVFs given concerns of volume overload follow trend of sodium level (3) Rhabdomyolysis: Code(s): M62.82 - Rhabdomyolysis Status: Acute Assessment and Plan: improving CPK elevated but trending down follow trend (4) Chronic respiratory failure with hypoxia: Code(s): J96.11 - Chronic respiratory failure with hypoxia Status: Chronic Assessment and Plan: conitnue inhalers and steroids continue supportive therapy (5) Benign essential hypertension: Code(s): I10 - Essential (primary) hypertension Status: Chronic Assessment and Plan: reasonable control at this time follow trend of hemodynamics Will continue to follow. Subjective Date/time seen: 10/03/21 13:27 Major complaints is that of swelling/edema in upper arms and lower extremities; sodium seems to be doing better; respiratory status seems stable (albeit tenuous); no other acute issues/events overnight or earlier this morning; no acute distress voiced. Exam Narrative: General: elderly female in NAD Heart: normal S1 and S2; no rub Lungs: coarse with wheezes noted Abdomen: soft, nontender, nondistended, positive bowel sounds Extremities: no cyanosis or clubbing; 1 - 2+ edema Skin: warm and dry Objective Data Vital Signs Vital Signs: Vital Signs Temp Pulse Resp BP Pulse Ox 10/03/21 08:00 100 22 H 91 10/03/21 06:00 36.4 C 100 22 H 160/62 H 91 10/03/21 03:48 100 18 10/03/21 03:38 96 18 10/02/21 22:00 36.0 C L 100 22 H 143/90 H 91 10/02/21 20:00 92 10/02/21 16:29 36.1 C L 100 24 H 154/74 H 92 Intake/Output Intake/Output: Intake & Output 09/30/21 10/01/21 10/02/21 10/03/21 23:59 23:59 23:59 23:59 Intake Total 3675 600 1680 140 Output Total 737 530 9742 1600 Balance 3475 200 680 -1460 Meds/Results Medications: Active Medications Generic Name Dose Route Start Last Admin Trade Name Freq PRN Reason Stop Dose Admin Albuterol 2 puff 09/28/21 02:39 10/01/21 15:00 Albuterol Sulfate (*Sp) Aerosol 1 Puff INHALATION 2 puff Q2HRT PRN Administration Shortness Of Breath Alprazolam 0.5 mg 09/28/21 02:39 10/03/21 05:40 Alprazolam (*Crx) 0.5 Mg Tablet PO 0.5 mg TID PRN Administration anxiety Benzonatate 200 mg 09/28/21 02:39 09/29/21 08:42 Benzonatate 100 Mg Capsule PO 200 mg TID PRN Administration Cough Bisacodyl 10 mg 10/01/21 09:27 Bisacodyl 10 Mg Suppository RECTAL QAM PRN Constipation Bupropion HCl 150 mg 09/28/21 09:00 10/03/21 09:00 Bupropion Hcl 75 Mg Tablet PO 150 mg Q12HR JOSE Administration Clopidogrel Bisulfate 75 mg 09/28/21 09:00 10/03/21 08:59 Clopidogrel Bisulfate 75 Mg Tablet PO 75 mg DAILY JOSE Administration Docusate Sodium 100 mg 10/01/21 09:30 10/03/21 08:59 Docusate Sodium 100 Mg Capsule PO 100 mg Q12HR JOSE Administration Enoxaparin Sodium 30 mg 09/30/21 09:00 10/03/21 08:59 Enoxaparin 30 Mg/0.3 Ml Syringe
--- NOTE | 2021-10-03 19:59 | PM.PNPUL ---
Progress Note: A&P Assessment and Plan (1) Acute exacerbation of chronic obstructive pulmonary disease: Code(s): J44.1 - Chronic obstructive pulmonary disease with (acute) exacerbation Status: Acute Assessment and Plan: Respiratory status unchanged over the last 2 days. Expiratory wheezing is still present. V steroids were discontinued, patient was placed on oral prednisone. Continue with same treatment for COPD exacerbation. (2) Chronic respiratory failure with hypoxia: Code(s): J96.11 - Chronic respiratory failure with hypoxia Status: Chronic Assessment and Plan: Has been on O2 prior to this admission. (3) Acute renal failure: Qualifiers: Acute renal failure type: unspecified Qualified Code(s): N17.9 - Acute kidney failure, unspecified Code(s): N17.9 - Acute kidney failure, unspecified Status: Acute Assessment and Plan: Urinary output has decreased over the last 24 hours. CK similar, 1380-->1478; BUN is lower now 65; patient was evaluated by engine house helper. Rhabdomyolysis is better. (4) Peripheral vascular disease: Code(s): I73.9 - Peripheral vascular disease, unspecified Status: Acute Assessment and Plan: Patient has on clinical grounds peripheral vascular disease with worsening of bluish discoloration of lower extremities from mid thighs down to toes. This is probably the source of the elevated CK. Discussed with Dr. Omer the need to get vascular surgery consultation. Subjective Date/time seen: 10/03/21 19:59 76 yo female seen in f/u for COPD exacerbation; has anxiety. Patient without any new respiratory symptoms. Afebrile, with less shortness of breath. complaining of pain around her knees bilaterally. Lower extremities still with bluish discoloration, especially when seated. Review of Systems Review of Systems: Anxious, short of breath, not feeling well at all. Exam Narrative: GENERAL APPEARANCE: Well developed, well nourished, alert and cooperative, and appears to be in in mild respiratory distress while on supplemental oxygen. HEENT: Sclerae anicteric and conjunctivae pink and moist. Extraocular movements were intact and pupils were equal, round; Dry oral mucosa CHEST: increased AP diameter and normal contour without any kyphoscoliosis. LUNGS: Auscultation of the lungs revealed distant breath sounds with expiratory wheezing bilaterally. Less wheezing than before. CARDIAC: There was a regular rate and rhythm without any murmurs, gallops, rubs. EXTREMITIES: Bluish discoloration of lower extremities from mid thigh down to toes. Extremities feel cold. NEUROLOGIC: Alert and oriented x 3. Normal affect. Objective Data Vital Signs Vital Signs: Vital Signs - 24 hr 10/02/21 20:00 10/02/21 22:00 10/03/21 03:38 Temperature 36.0 C L Pulse Rate 100 96 Respiratory Rate 22 H 18 Blood Pressure 143/90 H Pulse Oximetry 92 91 10/03/21 03:48 10/03/21 06:00 10/03/21 08:00 Temperature 36.4 C Pulse Rate 100 100 100 Respiratory Rate 18 22 H 22 H Blood Pressure 160/62 H Pulse Oximetry 91 91 10/03/21 14:15 10/03/21 14:17 10/03/21 16:28 Temperature 36.4 C Pulse Rate 78 98 Respiratory Rate 18 18 Blood Pressure 144/69 H Pulse Oximetry 95 94 Intake/Output Intake/Output: Intake & Output 09/30/21 10/01/21 10/02/21 10/03/21 23:59 23:59 23:59 23:59 Intake Total 3675 600 1680 700 Output Total 762 931 8836 1600 Balance 3475 200 680 -900 Meds/Results Medications: Active Medications Generic Name Dose Route Start Last Admin Trade Name Freq PRN Reason Stop
[2021-10-04] VITALS (9 sets, daily range): BP systolic 137–168; BP diastolic 63–73; PULSE 58–101; RESP 16–22; TEMP 36–36.1; O2SAT 94–100
[2021-10-04] MEDS: MORPHINE SULFATE (*CRX) 4 MG/ML INJ IV PUSH ×5 (02:32→21:48)
[2021-10-04] MEDS: LEVALBUTEROL NEB 1.25 MG/3 ML 0.63 MG INHALATION (02:43)
[2021-10-04 05:05] LABS: Osmolality, Urine 376 mOsm/kg (50-1200)
[2021-10-04] MEDS: FUROSEMIDE 20 MG TABLET PO ×3 (06:34→21:23)
[2021-10-04 07:25] LABS: Creatine Kinase 780 U/L (30-135)
[2021-10-04] MEDS: ONDANSETRON INJ 4 MG/2 ML VIAL IV PUSH (08:29)
[2021-10-04] MEDS: ALPRAZolam (*CRX) 0.5 MG TABLET PO ×3 (08:29→21:44)
[2021-10-04] MEDS: NICOTINE (*PBKC) 21 MG PATCH 1 PATCH TRANSDERM (08:45)
[2021-10-04] MEDS: predniSONE 20 MG TABLET 40 MG PO (08:46)
[2021-10-04] MEDS: PANTOPRAZOLE 40 MG TABLET PO ×2 (08:46→21:20)
[2021-10-04] MEDS: CLOPIDOGREL BISULFATE 75 MG TABLET PO (08:47)
[2021-10-04] MEDS: buPROPion HCL 75 MG TABLET 150 MG PO ×2 (08:47→21:21)
[2021-10-04] MEDS: DOCUSATE SODIUM 100 MG CAPSULE PO ×2 (08:47→21:20)
[2021-10-04] MEDS: SODIUM CHLORIDE 1 GM TABLET PO ×2 (08:47→21:23)
[2021-10-04] MEDS: FLUTICASONE/UMECLIDIN/VILANTER 200-62.5-25 MCG ELLIPTA 1 PUFF INHALATION (09:39)
[2021-10-04 10:12] LABS: Anion Gap 8 mmol/L (8-16); Blood Urea Nitrogen 45 mg/dL (7-17); Carbon Dioxide 37 mmol/L (22-30); Chloride 84 mmol/L (98-107); Estimated CRCL calculation 51 ml/min; Estimated Glomerular Filt Rate > 60; Glucose 110 mg/dL (65-110); Potassium 3.2 mmol/L (3.4-5.0); Sodium 129 mmol/L (137-145)
--- NOTE | 2021-10-04 10:37 | PM.IMPN ---
Progress Note: A&P Assessment and Plan (1) Acute renal failure: Qualifiers: Acute renal failure type: unspecified Qualified Code(s): N17.9 - Acute kidney failure, unspecified Code(s): N17.9 - Acute kidney failure, unspecified Status: Acute Assessment and Plan: Probably multifactorial related to contrast induced and rhabdomyolysis treated with bicarb drip currently also on oral Lasix Discussed with nephrology bicarb drip was discontinued Ultrasound renal no significant finding. (2) Rhabdomyolysis: Code(s): M62.82 - Rhabdomyolysis Status: Acute Assessment and Plan: Patient with ANEL as above. TCK peaked at 2314. Most likely related to rhabdomyolysis probably worsened by Crestor Continue to hold Crestor improved (3) Acute and chronic respiratory failure with hypoxia: Code(s): J96.21 - Acute and chronic respiratory failure with hypoxia Status: Acute Assessment and Plan: Most likely likely related to COPD exacerbation Patient with chronic respiratory failure on 2-3L at rest and up to 4L with exertion at home. She presents with SOB with ABG 7.44/50/88 on BiPAP. She had elevated carboxyhemo 3.9%. She said she no longer smokes since March and has electric furnace and a working CO monitor. She was weaned to 2-3L but now up to 4L; wheezing improved. CTA chest negative for PE. Continue steroids and neb treatments. Pulmonary following and appreciate their input. (4) AAA (abdominal aortic aneurysm): Qualifiers: Presence of rupture: without rupture Qualified Code(s): I71.4 - Abdominal aortic aneurysm, without rupture Code(s): I71.4 - Abdominal aortic aneurysm, without rupture Status: Acute Assessment and Plan: Noted to have AAA. CTA abd and LE Oct 2020 showing a 5.2 x 3.8 cm fusiform aneurysm of the distal descending thoracic aorta and a 3.3 x 2.8 cm fusiform infrarenal abdominal aortic aneurysm. She also has PAD with CTA showing: -- moderate stenosis of the bilateral external iliac arteries and mild stenosis of the bilateral internal iliac arteries. -- moderate stenosis in the Right superficial femoral artery. The popliteal artery and tibioperoneal trunk demonstrate calcified atherosclerosis without significant stenosis. There is a three-vessel runoff at the ankle. -- there is a 10 cm occluded segment of the Left mid superficial femoral artery. The popliteal artery and tibial peroneal trunk demonstrate calcified atherosclerosis without significant stenosis. There is a three-vessel runoff at the ankle. CTA of the chest 09/29/21 showing enlarging aneurysm. She now has ANEL so no plans to check aorta until ANEL resolves. Continue Plavix/ASA. No smoking is imperative. Hold Crestor due to rhabdo. Anup discuss with radiology about best test to see if aneurysm is affecting the kidneys. Discussed case with radiology who reviewed old CTA from October and recent CTA chest 09/29/21. No significant change in the atherosclerotic findings of the renal arteries. He felt the biggest aortic aneurysmal changes was seen by the CTA on 09/29 and that it was only slightly worsened. Legs look worse possibly related to them being dependent but having more pain now. Will check arterial US LE. (5) COPD exacerbation: Code(s): J44.1 - Chronic obstructive pulmonary disease with (acute) exacerbation Status: Acute Assessment and Plan: Probably nearing end-stage COPD. Continue Xopenex, Trelegy, Daliresp and Prednisone. No feeling of improvement but less wheezing today with improved air exchange. Follow. Appreciate Pulmonary input. (6) Hyponatremia: Code(s): E87.1 - Hypo-osmolality and hyponatremia Status: Chronic Assessment and Plan: Sodium 122 on admission. Probably related to dehydration treated with IV bicarb drip which was discontinued on 10/03/2021 nephrology following. (7) Obstructive sleep apnea: Code(s): G47.33 - Obstruc
--- NOTE | 2021-10-04 12:53 | PM.PNNEP ---
Progress Note: A&P Assessment and Plan (1) Acute renal failure: Qualifiers: Acute renal failure type: unspecified Qualified Code(s): N17.9 - Acute kidney failure, unspecified Code(s): N17.9 - Acute kidney failure, unspecified Status: Acute Assessment and Plan: resolved multifactorial etiology: contrast exposure pre-renal factors elevated CPK evaluation to date: urine electrolytes are pre-renal mildly elevated CPK (but down trending) renal ultrasound normal follow repeat labs and UOP (2) Hyponatremia: Code(s): E87.1 - Hypo-osmolality and hyponatremia Status: Chronic Assessment and Plan: somewhat of a chronic issue/problem testing to date: cortisol low but on steroids TSH okay urine electrolytes prerenal SPEP/UPEP/serum + urine osmolality pending on low dose diuretics and salt tablets follow trend of sodium level (3) Rhabdomyolysis: Code(s): M62.82 - Rhabdomyolysis Status: Acute Assessment and Plan: improving due to statin(?) CPK elevated but trending down s/p bicarb IVFs follow trend (4) Chronic respiratory failure with hypoxia: Code(s): J96.11 - Chronic respiratory failure with hypoxia Status: Chronic Assessment and Plan: conitnue inhalers and steroids Pulmonary following continue supportive therapy (5) Benign essential hypertension: Code(s): I10 - Essential (primary) hypertension Status: Chronic Assessment and Plan: reasonable control at this time follow trend of hemodynamics Will continue to follow. Subjective Date/time seen: 10/04/21 12:53 Sodium seems to be slowly improving with current interventions to date and renal function now normal; still complaining of terrible swelling in upper and lower extremities (upper extremity edema seems secondary severe bruising/ecchymoses; lower extremity edema seems more dependent); breathing/respiratory status seems stable at the time of my visit. Exam Narrative: General: elderly female in NAD Heart: normal S1 and S2; no rub Lungs: coarse with wheezes noted Abdomen: soft, nontender, nondistended, positive bowel sounds Extremities: no cyanosis or clubbing; 1 - 2+ edema Skin: warm and dry Objective Data Vital Signs Vital Signs: Vital Signs Temp Pulse Resp BP Pulse Ox 10/04/21 09:40 95 10/04/21 08:00 100 22 H 95 10/04/21 06:00 36.1 C L 100 22 H 168/71 H 100 10/04/21 02:52 98 18 10/04/21 02:43 101 H 20 10/03/21 22:00 35.5 C L 106 H 20 145/69 H 98 10/03/21 20:57 96 18 10/03/21 20:48 92 18 10/03/21 20:44 93 10/03/21 20:00 98 Intake/Output Intake/Output: Intake & Output 10/01/21 10/02/21 10/03/21 10/04/21 23:59 23:59 23:59 23:59 Intake Total 600 1680 700 620 Output Total 400 1000 1600 2500 Balance 200 658 -900 1880 Meds/Results Medications: Active Medications Generic Name Dose Route Start Last Admin Trade Name Freq PRN Reason Stop Dose Admin Albuterol 2 puff 09/28/21 02:39 10/01/21 15:00 Albuterol Sulfate (*Sp) Aerosol 1 Puff INHALATION 2 puff Q2HRT PRN Administration Shortness Of Breath Alprazolam 0.5 mg 09/28/21 02:39 10/04/21 15:42 Alprazolam (*Crx) 0.5 Mg Tablet PO 0.5 mg TID PRN Administration anxiety Benzonatate 200 mg 09/28/21 02:39 09/29/21 08:42 Benzonatate 100 Mg Capsule PO 200 mg TID PRN Administration Cough Bisacodyl 10 mg 10/01/21 09:27 Bisacodyl 10 Mg Suppository RECTAL QAM PRN Constipation Bupropion HCl 150 mg 09/28/21 09:00 10/04/21 08:47 Bupropion Hcl 75 Mg Tablet PO 150 mg Q12HR JOSE Administration Clopidogrel Bisulfate 75 mg 09/28/21 09:00 10/04/21 08:47 Clopidogrel Bisulfate 75 Mg Tablet PO 75 mg DAILY JOSE Administration Docusate Sodium 100 mg 10/01/21 09:30 10/04/21 08:47 Docusate Sodium 10
--- NOTE | 2021-10-04 12:53 | P.PNNP_ITS ---
Progress Note: A&P Assessment and Plan (1) Acute renal failure: Qualifiers: Acute renal failure type: unspecified Qualified Code(s): N17.9 - Acute kidney failure, unspecified Code(s): N17.9 - Acute kidney failure, unspecified Status: Acute Assessment and Plan: * resolved * multifactorial etiology: * contrast exposure * pre-renal factors * elevated CPK * evaluation to date: * urine electrolytes are pre-renal * mildly elevated CPK (but down trending) * renal ultrasound normal * follow repeat labs and UOP (2) Hyponatremia: Code(s): E87.1 - Hypo-osmolality and hyponatremia Status: Chronic Assessment and Plan: * somewhat of a chronic issue/problem * testing to date: * cortisol low but on steroids * TSH okay * urine electrolytes prerenal * SPEP/UPEP/serum + urine osmolality pending * on low dose diuretics and salt tablets * follow trend of sodium level (3) Rhabdomyolysis: Code(s): M62.82 - Rhabdomyolysis Status: Acute Assessment and Plan: * improving * due to statin(?) * CPK elevated but trending down * s/p bicarb IVFs * follow trend (4) Chronic respiratory failure with hypoxia: Code(s): J96.11 - Chronic respiratory failure with hypoxia Status: Chronic Assessment and Plan: * conitnue inhalers and steroids * Pulmonary following * continue supportive therapy (5) Benign essential hypertension: Code(s): I10 - Essential (primary) hypertension Status: Chronic Assessment and Plan: * reasonable control at this time * follow trend of hemodynamics Will continue to follow. Subjective Date/time seen: 10/04/21 12:53 Sodium seems to be slowly improving with current interventions to date and renal function now normal; still complaining of terrible swelling in upper and lower extremities (upper extremity edema seems secondary severe bruising/ecchymoses; lower extremity edema seems more dependent); breathing/respiratory status seems stable at the time of my visit. Exam Narrative: General: elderly female in NAD Heart: normal S1 and S2; no rub Lungs: coarse with wheezes noted Abdomen: soft, nontender, nondistended, positive bowel sounds Extremities: no cyanosis or clubbing; 1 - 2+ edema Skin: warm and dry Objective Data Vital Signs Vital Signs: Vital Signs Temp Pulse Resp BP Pulse Ox 10/04/21 09:40 95 12/05/21 08:00 100 22 H 95 10/04/21 06:00 36.1 C L 100 22 H 168/71 H 100 10/04/21 02:52 98 18 10/04/21 02:43 101 H 20 10/03/21 22:00 35.5 C L 106 H 20 145/69 H 98 10/03/21 20:57 96 18 10/03/21 20:48 92 18 10/03/21 20:44 93 10/03/21 20:00 98 Intake/Output Intake/Output: Intake & Output 10/01/21 10/02/21 10/03/21 10/04/21 23:59 23:59 23:59 23:59 Intake Total 600 1680 700 620 Output Total 400 1000 1600 2500 Balance 200 680 900 -1880 Meds/Results Medications: Active Medications Generic Name Dose Route Start Last Admin Trade Name Freq PRN Reason Stop Dose Admin Albuterol 2 puff 09/28/21 02:39 10/01/21 15:00 Albuterol Sulfate (*Sp) Aerosol 1 Puff INHAL
--- NOTE | 2021-10-04 14:00 | PCPTNOTE ---
Attempted to see patient for Physical Therapy treatment. Patient refused at this time. Will attempt at a later date/time.
[2021-10-04] MEDS: MAGNES & ALUM HYD/SIMETH/DIPHENHYD/LIDOCAINE 119 ML MOUTHWASH BY MOUTH ×3 (15:42→21:28)
[2021-10-04] MEDS: MAGNESIUM CITRATE 300 ML BTL 150 ML PO (15:42)
[2021-10-04] MEDS: NEOMYCIN/POLYMYXIN/BACITRACIN OINTMENT 15 GM TUBE 1 APPLIC TOPICAL ×2 (15:42→16:49)
--- NOTE | 2021-10-04 16:35 | PM.PNPUL ---
Progress Note: A&P Assessment and Plan (1) Acute exacerbation of chronic obstructive pulmonary disease: Code(s): J44.1 - Chronic obstructive pulmonary disease with (acute) exacerbation Status: Acute Assessment and Plan: Respiratory status unchanged over the last 2 days. Decreased expiratory wheezing is still present. IV steroids were discontinued, patient was placed on oral prednisone. Continue with same treatment for COPD exacerbation. She is on bupropion, and this can have a stimulant effect. She may be better on SSRI or SNRI. She is on alprazolam, and may be better on clonazepam, lasts longer, less abuse potential. She is a bag of nerves. This is a huge part of her issues. She is restless and anxious. (2) Chronic respiratory failure with hypoxia: Code(s): J96.11 - Chronic respiratory failure with hypoxia Status: Chronic Assessment and Plan: Has been on O2 prior to this admission. (3) Acute renal failure: Qualifiers: Acute renal failure type: unspecified Qualified Code(s): N17.9 - Acute kidney failure, unspecified Code(s): N17.9 - Acute kidney failure, unspecified Status: Acute Assessment and Plan: Urinary output has decreased over the last 24 hours. CK similar, 1380-->1478; BUN is lower now 65; patient was evaluated by manufacturing machine operator. Rhabdomyolysis is better. (4) Peripheral vascular disease: Code(s): I73.9 - Peripheral vascular disease, unspecified Status: Acute Assessment and Plan: Patient has on clinical grounds peripheral vascular disease with worsening of bluish discoloration of lower extremities from mid thighs down to toes. This is probably the source of the elevated CK. Subjective Date/time seen: 10/04/21 16:35 76 yo female seen in f/u for COPD exacerbation; has anxiety. She is not as distressed. Patient without any new respiratory symptoms. Afebrile, with less shortness of breath. Lower extremities still with bluish discoloration. She says that she does not feel well enough to go home, does not want to go home too early. Exam Narrative: GENERAL APPEARANCE: Well developed, well nourished, alert and cooperative, and appears to be in in mild respiratory distress while on supplemental oxygen. HEENT: Sclerae anicteric and conjunctivae pink and moist. Extraocular movements were intact and pupils were equal, round; Dry oral mucosa CHEST: increased AP diameter and normal contour without any kyphoscoliosis. LUNGS: Auscultation of the lungs revealed distant breath sounds with expiratory wheezing bilaterally. Less wheezing than before. CARDIAC: There was a regular rate and rhythm without any murmurs, gallops, rubs. EXTREMITIES: Bluish discoloration of lower extremities from mid thigh down to toes. Extremities feel cold. NEUROLOGIC: Alert and oriented x 3. Normal affect. Objective Data Vital Signs Vital Signs: Vital Signs - 24 hr 10/03/21 20:00 10/03/21 20:44 10/03/21 20:48 Temperature Pulse Rate 92 Respiratory Rate 18 Blood Pressure Pulse Oximetry 98 93 10/03/21 20:57 10/03/21 22:00 10/04/21 02:43 Temperature 35.5 C L Pulse Rate 96 106 H 101 H Respiratory Rate 18 20 20 Blood Pressure 145/69 H Pulse Oximetry 98 10/04/21 02:52 10/04/21 06:00 10/04/21 08:00 Temperature 36.1 C L Pulse Rate 98 100 100 Respiratory Rate 18 22 H 22 H Blood Pressure 168/71 H Pulse Oximetry 100 95 10/04/21 09:40 10/04/21 15:24 Temperature 36.0 C L Pulse Rate 58 L Respiratory Rate 16 Blood Pressure 137/73 Pulse Oximetry 95 94 Intake/Output Intake/Output: Intake & Output 10/01/21 10/02/21 10/03/21 10/04/21 23:59 23:59 23:59 23:59
[2021-10-04] MEDS: FLUTICASONE PROPIONATE 0.05% NA SPR 16 GM BTL (*BKC) 1 SPRAY NASAL (21:19)
[2021-10-04] MEDS: OXYMETAZOLINE HCL 0.05% NAS 15 ML BTL (*BKC) 1 SPRAY NASAL (21:22)
[2021-10-05] MEDS: MAGNES & ALUM HYD/SIMETH/DIPHENHYD/LIDOCAINE 119 ML MOUTHWASH BY MOUTH ×6 (01:24→21:45)
[2021-10-05] MEDS: FUROSEMIDE 20 MG TABLET PO ×3 (04:51→21:45)
[2021-10-05] MEDS: ALBUTEROL SULFATE (*SP) AEROSOL 1 PUFF 2 PUFF INHALATION ×3 (05:12→14:25)
[2021-10-05 05:19] VITALS: BP 168/72; PULSE 107; RESP 20; TEMP 36.3; O2SAT 98
[2021-10-05 07:12] LABS: Basophils Percent Auto 0.1 % (0.2-1.2); Eosinophils Percent Auto 0.3 % (0-4.4); Hematocrit 40.6 % (37.0-47.0); Hemoglobin 13.4 g/dL (12.0-15.0); Immature Granulocyte Absolute 0.04 K/mm3 (0.00-0.031); Immature Granulocyte Percent A 0.5 % (0-0.5); Lymphocytes Percent Auto 12.6 % (18.3-44.2); Mean Corpuscular Hemoglobin 31.9 pg (26-34); Mean Corpuscular Volume 96.7 fl (80-100); Mean Platelet Volume 9.3 fl (7.4-10.4); Monocytes Absolute Auto 1.6 K/mm3 (0.1-0.6); Monocytes Percent Auto 18.3 % (2.6-8.5); Neutrophils Percent Auto 68.2 % (45.5-73.1); Platelet Count Result 224 k/mm3 (150-375); Red Cell Distribution Width 14.5 % (11.5-14.5); White Blood Count 8.8 K/mm3 (4.5-10.0)
[2021-10-05 07:50] LABS: Alanine Aminotransferase 68 U/L (4-35); Albumin Level 3.9 g/dL (3.5-5.1); Alkaline Phosphatase 69 U/L (38-126); Aspartate Amino Transferase 80 U/L (14-36); Bilirubin,Total 1.2 mg/dL (0.2-1.3); Blood Urea Nitrogen 29 mg/dL (7-17); Calcium 9.1 mg/dL (8.4-10.2); Carbon Dioxide > 40 mmol/L (22-30); Chloride 81 mmol/L (98-107); Estimated CRCL calculation 51 ml/min; Estimated Glomerular Filt Rate > 60; Glucose 93 mg/dL (65-110); Phosphorus 1.1 mg/dL (2.5-4.5); Potassium 3.2 mmol/L (3.4-5.0); Sodium 134 mmol/L (137-145)
[2021-10-05 08:00] VITALS: O2SAT 98
[2021-10-05] MEDS: buPROPion HCL 75 MG TABLET 150 MG PO ×2 (08:08→21:46)
[2021-10-05] MEDS: ENOXAPARIN 30 MG/0.3 ML SYRINGE SUB-Q (08:08)
[2021-10-05] MEDS: CLOPIDOGREL BISULFATE 75 MG TABLET PO (08:08)
[2021-10-05] MEDS: NICOTINE (*PBKC) 21 MG PATCH 1 PATCH TRANSDERM (08:09)
[2021-10-05] MEDS: SODIUM CHLORIDE 1 GM TABLET PO ×2 (08:09→21:45)
[2021-10-05] MEDS: OXYMETAZOLINE HCL 0.05% NAS 15 ML BTL (*BKC) 1 SPRAY NASAL ×2 (08:10→21:45)
[2021-10-05] MEDS: DOCUSATE SODIUM 100 MG CAPSULE PO ×2 (08:10→21:45)
[2021-10-05] MEDS: predniSONE 20 MG TABLET 40 MG PO (08:11)
[2021-10-05] MEDS: NEOMYCIN/POLYMYXIN/BACITRACIN OINTMENT 15 GM TUBE 1 APPLIC TOPICAL ×2 (08:11→17:25)
[2021-10-05] MEDS: FLUTICASONE PROPIONATE 0.05% NA SPR 16 GM BTL (*BKC) 1 SPRAY NASAL ×2 (08:11→21:45)
[2021-10-05] MEDS: PANTOPRAZOLE 40 MG TABLET PO ×2 (08:11→21:45)
[2021-10-05] MEDS: ALPRAZolam (*CRX) 0.5 MG TABLET PO ×3 (08:19→21:45)
[2021-10-05] MEDS: MORPHINE SULFATE (*CRX) 4 MG/ML INJ IV PUSH ×4 (08:19→21:47)
[2021-10-05] MEDS: FLUTICASONE/UMECLIDIN/VILANTER 200-62.5-25 MCG ELLIPTA 1 PUFF INHALATION (08:46)
[2021-10-05 08:47] VITALS: O2SAT 94
--- NOTE | 2021-10-05 10:48 | PM.IMPN ---
Progress Note: A&P Assessment and Plan (1) Acute renal failure: Qualifiers: Acute renal failure type: unspecified Qualified Code(s): N17.9 - Acute kidney failure, unspecified Code(s): N17.9 - Acute kidney failure, unspecified Status: Acute Assessment and Plan: Patient's renal function normal with BUN 9, Cr 0.7 and CrCl 65 on admission. She had a CTA 09/29. Her oliguric ANEL probably multifactorial from rhabdomyolysis, dehydration, contrast, Lasix. Urine studies consistent with pre-renal and Ueos negative; complement normal; UA clear except for 3-5 RBC (from the rhabdo); Renal US normal. Nephrology consulted. Cozaar and Crestor held. Treated with IV fluids but stopped now. Lasix resumed. BUN peaked at 82 and Cr at 2.9. ANEL has now resolved. Potassium and Phos low and replacement has been ordered. Plan for discharge tomorrow. Okay to remove Timmons. (2) Rhabdomyolysis: Code(s): M62.82 - Rhabdomyolysis Status: Acute Assessment and Plan: Patient with ANEL as above. TCK peaked at 2314. Related to Crestor? Related to ischemia? Rhabdo possibly playing a part in her ANEL. Treated with IV fluids with bicarb but stopped now. Mildly elevated LFTs felt related to the rhabdo. Complains of right hip pain and RLE weakness. Probably related to the rhabdo. TCK has dropped to 780. Continue to hold Crestor. Check CT brain to exclude new CVA. (3) Acute and chronic respiratory failure with hypoxia: Code(s): J96.21 - Acute and chronic respiratory failure with hypoxia Status: Acute Assessment and Plan: Patient with chronic respiratory failure on 2-3L at rest and up to 4L with exertion at home. She presents with SOB with ABG 7.44/50/88 on BiPAP. She had elevated carboxyhemo 3.9%. CTA chest negative for PE. She said she no longer smokes since March and has electric furnace and a working CO monitor. She was weaned to 3L now. Continue steroids and neb treatments. Pulmonary following and appreciate their input. (4) AAA (abdominal aortic aneurysm): Qualifiers: Presence of rupture: without rupture Qualified Code(s): I71.4 - Abdominal aortic aneurysm, without rupture Code(s): I71.4 - Abdominal aortic aneurysm, without rupture Status: Acute Assessment and Plan: Noted to have AAA. CTA abd and LE Oct 2020 showing a 5.2 x 3.8 cm fusiform aneurysm of the distal descending thoracic aorta and a 3.3 x 2.8 cm fusiform infrarenal abdominal aortic aneurysm. She also has PAD with CTA showing: -- moderate stenosis of the bilateral external iliac arteries and mild stenosis of the bilateral internal iliac arteries. -- moderate stenosis in the Right superficial femoral artery. The popliteal artery and tibioperoneal trunk demonstrate calcified atherosclerosis without significant stenosis. There is a three-vessel runoff at the ankle. -- there is a 10 cm occluded segment of the Left mid superficial femoral artery. The popliteal artery and tibial peroneal trunk demonstrate calcified atherosclerosis without significant stenosis. There is a three-vessel runoff at the ankle. CTA of the chest 09/29/21 showing enlarging aneurysm. Continue Plavix/ASA. No smoking is imperative. Crestor held due to rhabdo. Discussed case with radiology who felt no significant change in the atherosclerotic findings of the renal arteries. He felt the biggest aortic aneurysmal changes that was seen by the CTA on 09/29 was only slightly worsened. Legs look worse possibly related to them being dependent. Arterial US LE showing minimal changes on the left. Will need to see vascular surgeon after discharge. (5) COPD exacerbation: Code(s): J44.1 - Chronic obstructive pulmonary disease with (acute) exacerbation Status: Acute Assessment and Plan: As above. PFTs in July 2021 showing very severe obstructive abnormality without significant improvement after a dose of albuterol. Probably nearing end-stage COPD. Contin
--- NOTE | 2021-10-05 10:55 | PCNWS ---
Weekly nutritional screen. Patient is tolerating current diet with adequate intake of at least 50% of meals. BMI of 29.5. No weight loss reported. No nutritional needs at this time.
--- NOTE | 2021-10-05 11:06 | P.PNNP_ITS ---
Progress Note: A&P Assessment and Plan (1) Acute renal failure: Qualifiers: Acute renal failure type: unspecified Qualified Code(s): N17.9 - Acute kidney failure, unspecified Code(s): N17.9 - Acute kidney failure, unspecified Status: Acute Assessment and Plan: * resolved (2) Hyponatremia: Code(s): E87.1 - Hypo-osmolality and hyponatremia Status: Chronic Assessment and Plan: * somewhat of a chronic issue/problem * testing to date: * cortisol low but on steroids * TSH okay * urine electrolytes prerenal * SPEP/UPEP/serum + urine osmolality pending * on low dose diuretics and salt tablets * sodium level has improved. * Will increase free water a lot meant [id number] (3) Rhabdomyolysis: Code(s): M62.82 - Rhabdomyolysis Status: Acute Assessment and Plan: * improving * less level down to 780. * due to statin(?) * CPK elevated but trending down * Off the fluids now. * follow trend (4) Chronic respiratory failure with hypoxia: Code(s): J96.11 - Chronic respiratory failure with hypoxia Status: Chronic Assessment and Plan: * conitnue inhalers and steroids * Pulmonary following * continue supportive therapy (5) Benign essential hypertension: Code(s): I10 - Essential (primary) hypertension Status: Chronic Assessment and Plan: * SBP 140-160. * follow trend of hemodynamics Will continue to follow. Subjective Date/time seen: 10/05/21 11:06 Interval history: Patient is feeling about the same. Generally uncomfortable. still has shortness of breath with any movement. Still has swelling. Exam Narrative: General: elderly female in NAD Heart: normal S1 and S2; no rub or gallop Lungs: coarse with wheezes noted Abdomen: soft, nontender, nondistended, positive bowel sounds Extremities: no cyanosis or clubbing; 1 - 2+ edema Skin: No rash although extremities still somewhat violaceous Objective Data Vital Signs Vital Signs: Vital Signs - 24 hr 10/04/21 15:24 10/04/21 20:08 10/04/21 20:45 Temperature 36.0 C L Pulse Rate 58 L 101 H Respiratory Rate 16 18 Blood Pressure 137/73 Pulse Oximetry 94 94 100 10/04/21 22:00 10/05/21 05:19 10/05/21 08:00 Temperature 36.0 C L 36.3 C L Pulse Rate 101 H 107 H Respiratory Rate 18 20 Blood Pressure 151/63 H 168/72 H Pulse Oximetry 100 98 98 10/05/21 08:47 Temperature Pulse Rate Respiratory Rate Blood Pressure Pulse Oximetry 94 Intake/Output Intake/Output: Intake & Output 10/02/21 10/03/21 10/04/21 10/05/21 23:59 23:59 23:59 23:59 Intake Total 1680 700 860 340 Output Total 1000 1600 3300 Balance 351 -726 -4574 340 Meds/Results Medications: Active Medications Generic Name Dose Route Start Last Admin Trade Name Freq PRN Reason Stop Dose Admin Albuterol 2 puff 09/28/21 02:39 10/05/21 05:12 Albuterol Sulfate (*Sp) Aerosol 1 Puff INHALATION 2 puff Q2HRT PRN Administration Shortness Of Breath Alprazolam 0.5 mg 09/28/21 02:39 10/05/21 08:19
--- NOTE | 2021-10-05 11:06 | PM.PNNEP ---
Progress Note: A&P Assessment and Plan (1) Acute renal failure: Qualifiers: Acute renal failure type: unspecified Qualified Code(s): N17.9 - Acute kidney failure, unspecified Code(s): N17.9 - Acute kidney failure, unspecified Status: Acute Assessment and Plan: resolved (2) Hyponatremia: Code(s): E87.1 - Hypo-osmolality and hyponatremia Status: Chronic Assessment and Plan: somewhat of a chronic issue/problem testing to date: cortisol low but on steroids TSH okay urine electrolytes prerenal SPEP/UPEP/serum + urine osmolality pending on low dose diuretics and salt tablets sodium level has improved. Will increase free water a lot meant [id number] (3) Rhabdomyolysis: Code(s): M62.82 - Rhabdomyolysis Status: Acute Assessment and Plan: improving less level down to 780. due to statin(?) CPK elevated but trending down Off the fluids now. follow trend (4) Chronic respiratory failure with hypoxia: Code(s): J96.11 - Chronic respiratory failure with hypoxia Status: Chronic Assessment and Plan: conitnue inhalers and steroids Pulmonary following continue supportive therapy (5) Benign essential hypertension: Code(s): I10 - Essential (primary) hypertension Status: Chronic Assessment and Plan: SBP 140-160. follow trend of hemodynamics Will continue to follow. Subjective Date/time seen: 10/05/21 11:06 Interval history: Patient is feeling about the same. Generally uncomfortable. still has shortness of breath with any movement. Still has swelling. Exam Narrative: General: elderly female in NAD Heart: normal S1 and S2; no rub or gallop Lungs: coarse with wheezes noted Abdomen: soft, nontender, nondistended, positive bowel sounds Extremities: no cyanosis or clubbing; 1 - 2+ edema Skin: No rash although extremities still somewhat violaceous Objective Data Vital Signs Vital Signs: Vital Signs - 24 hr 10/04/21 15:24 10/04/21 20:08 10/04/21 20:45 Temperature 36.0 C L Pulse Rate 58 L 101 H Respiratory Rate 16 18 Blood Pressure 137/73 Pulse Oximetry 94 94 100 10/04/21 22:00 10/05/21 05:19 10/05/21 08:00 Temperature 36.0 C L 36.3 C L Pulse Rate 101 H 107 H Respiratory Rate 18 20 Blood Pressure 151/63 H 168/72 H Pulse Oximetry 100 98 98 10/05/21 08:47 Temperature Pulse Rate Respiratory Rate Blood Pressure Pulse Oximetry 94 Intake/Output Intake/Output: Intake & Output 10/02/21 10/03/21 10/04/21 10/05/21 23:59 23:59 23:59 23:59 Intake Total 1680 700 860 340 Output Total 1000 1600 3300 Balance 003 -168 -7275 340 Meds/Results Medications: Active Medications Generic Name Dose Route Start Last Admin Trade Name Freq PRN Reason Stop Dose Admin Albuterol 2 puff 09/28/21 02:39 10/05/21 05:12 Albuterol Sulfate (*Sp) Aerosol 1 Puff INHALATION 2 puff Q2HRT PRN Administration Shortness Of Breath Alprazolam 0.5 mg 09/28/21 02:39 10/05/21 08:19 Alprazolam (*Crx) 0.5 Mg Tablet PO 0.5 mg TID PRN Administration anxiety Benzonatate 200 mg 09/28/21 02:39 09/29/21 08:42 Benzonatate 100 Mg Capsule PO 200 mg TID PRN Administration Cough Bisacodyl 10 mg 10/01/21 09:27 Bisacodyl 10 Mg Suppository RECTAL QAM PRN Constipation Bupropion HCl 150 mg 09/28/21 09:00 10/05/21 08:08 Bupropion Hcl 75 Mg Tablet PO 150 mg Q12HR JOSE Administration Clopidogrel Bisulfate 75 mg 09/28/21 09:00 10/05/21 08:08 Clopidogrel Bisulfate 75 Mg Tablet PO 75 mg DAILY JOSE Administration Docusate Sodium 100 mg 10/01/21 09:30 10/05/21 08:10 Docusate Sodium 100 Mg Capsule PO 100 mg Q12HR JOSE Administration Enoxaparin Sodium 30 mg 09/30/21 09:00 10/05/21 08:08 Enoxaparin 30 Mg/0.3 Ml Syringe SUB-Q 30 mg DAILY JOSE Administration Fluticasone
[2021-10-05] MEDS: POTASSIUM PHOS/SODIUM PHOS 250 MG TABLET PO ×3 (11:08→17:25)
[2021-10-05] MEDS: POTASSIUM CHLORIDE 20 MEQ TABLET 40 MEQ PO (11:08)
--- NOTE | 2021-10-05 13:59 | PM.PNPUL ---
Progress Note: A&P Assessment and Plan (1) Acute exacerbation of chronic obstructive pulmonary disease: Code(s): J44.1 - Chronic obstructive pulmonary disease with (acute) exacerbation Status: Acute Assessment and Plan: 10/04 Respiratory status unchanged over the last 2 days. Decreased expiratory wheezing is still present. IV steroids were discontinued, patient was placed on oral prednisone. Continue with same treatment for COPD exacerbation. She is on bupropion, and this can have a stimulant effect. She may be better on SSRI or SNRI. She is on alprazolam, and may be better on clonazepam, lasts longer, less abuse potential. She is a bag of nerves. This is a huge part of her issues. She is restless and anxious. 10/05 patient is slowly improving. patient is on prednisone 40 mg p.o. q.day, trilogy 200-60 2.5-25 at 1 puff q.day and daliresp 250 mg PO Q day. Will add levalbuterol 1.25 mg nebs q.6 hours standing and ipratropium 0.5 mg nebs q.6 hours standing to for her wheezing. (2) Chronic respiratory failure with hypoxia: Code(s): J96.11 - Chronic respiratory failure with hypoxia Status: Chronic Assessment and Plan: Has been on O2 prior to this admission At 2 L nasal cannula 24-7. 10/05 currently patient is on 3 L nasal cannula saturations 98%. (3) Peripheral vascular disease: Code(s): I73.9 - Peripheral vascular disease, unspecified Status: Acute Assessment and Plan: Patient has on clinical grounds peripheral vascular disease with worsening of bluish discoloration of lower extremities from mid thighs down to toes. This is probably the source of the elevated CK. Subjective Date/time seen: 10/05/21 13:59 Interval history: 10/04/21 16:35 76 yo female seen in f/u for COPD exacerbation; has anxiety. She is not as distressed. Patient without any new respiratory symptoms. Afebrile, with less shortness of breath. Lower extremities still with bluish discoloration. She says that she does not feel well enough to go home, does not want to go home too early. 10/05 Patient states that she is slowly improving but not ready to go home today. Patient does 3 L nasal cannula saturation 98%. At home she wears 2 L 24-7. She does have expiratory wheezes today. She is on prednisone 40 mg q.day. she does have lower extremity edema with negative lower extremity Dopplers and she is on Lasix per the hospitalist and renal teams. Review of Systems Review of Systems: All systems reviewed & are unremarkable except as noted in HPI and below Eyes: Eyes: Reports no additional eye complaints ENT: Reports system reviewed and no additional complaints, except as documented Cardiovascular: Cardiovascular: Reports no additional cardiovascular complaints Respiratory: Respiratory: Reports no additional respiratory complaints Gastrointestinal: Gastrointestinal: Reports no additional gastrointestinal complaints Musculoskeletal: Musculoskeletal: Reports no additional musculoskeletal complaints Integumentary/Breasts: Skin/Breast: Reports system reviewed and no additional complaints, except as docu Neurologic: Reports system reviewed and no additional complaints, except as documented and Reports behavioral changes Psychiatric: Psychiatric: Reports no additional psychiatric complaints Endocrine: Endocrine: Reports no additional endocrine complaints Exam Const: General: cooperative and healthy appearing Orientation/consciousness: oriented to person, oriented to place and oriented to time HENMT: Head: normal to inspection Ears: hearing grossly normal bilaterally Mouth: Yes Normal oral and palatal mucosa present Throat: tonsils absent Eyes: General: appearance normal, both eyes and all related stru
--- NOTE | 2021-10-05 14:03 | PCNSR ---
On 10/05/21, the student,Jaquelin Peterson, provided care and completed [facility] documentation on this patient. I have reviewed the student's documentation and agree with the findings.
[2021-10-05 14:15] VITALS: BP 147/81; PULSE 99; RESP 14; TEMP 36.6; O2SAT 94
--- NOTE | 2021-10-05 14:44 | PC.NURSE ---
patient to ct per w/c
--- NOTE | 2021-10-05 15:53 | PCPTNOTE ---
Patient declined PT this afternoon. Patient states her legs hurt after walking and does not want to do therapy at this time. She states I have been moving around by my bed today many times. PT will continue to follow per plan of care.
[2021-10-05 20:00] VITALS: O2SAT 3
[2021-10-05 21:16] VITALS: BP 177/81; PULSE 102; RESP 18; TEMP 36.3; O2SAT 96
--- NOTE | 2021-10-06 05:12 | PCRCNOTE ---
Patient refuses nebulizer treatments stating they give her nose bleeds.
[2021-10-06 06:00] VITALS: BP 175/72; PULSE 102; RESP 20; TEMP 36.4; O2SAT 93
[2021-10-06 07:13] LABS: Basophils Percent Auto 0.2 % (0.2-1.2); Eosinophils Percent Auto 0.5 % (0-4.4); Hematocrit 37.9 % (37.0-47.0); Hemoglobin 12.7 g/dL (12.0-15.0); Immature Granulocyte Absolute 0.05 K/mm3 (0.00-0.031); Immature Granulocyte Percent A 0.8 % (0-0.5); Lymphocytes Absolute Auto 1.31 K/mm3 (0.9-3.2); Lymphocytes Percent Auto 21.1 % (18.3-44.2); Mean Corpuscular HGB Conc 33.5 g/dl (32-36); Mean Corpuscular Hemoglobin 31.8 pg (26-34); Mean Corpuscular Volume 94.8 fl (80-100); Mean Platelet Volume 8.9 fl (7.4-10.4); Monocytes Absolute Auto 0.9 K/mm3 (0.1-0.6); Monocytes Percent Auto 15.2 % (2.6-8.5); Neutrophils Absolute Auto 3.9 K/mm3 (1.3-6.7); Neutrophils Percent Auto 62.2 % (45.5-73.1); Platelet Count Result 211 k/mm3 (150-375); Red Cell Distribution Width 14.6 % (11.5-14.5); White Blood Count 6.2 K/mm3 (4.5-10.0)
[2021-10-06 07:30] VITALS: PULSE 90; RESP 24; O2SAT 97
[2021-10-06 07:41] LABS: Alanine Aminotransferase 59 U/L (4-35); Albumin Level 3.4 g/dL (3.5-5.1); Alkaline Phosphatase 57 U/L (38-126); Aspartate Amino Transferase 61 U/L (14-36); Blood Urea Nitrogen 21 mg/dL (7-17); Calcium 8.5 mg/dL (8.4-10.2); Carbon Dioxide > 40 mmol/L (22-30); Chloride 81 mmol/L (98-107); Estimated CRCL calculation 57 ml/min; Estimated Glomerular Filt Rate > 60; Glucose 95 mg/dL (65-110); Phosphorus 1.6 mg/dL (2.5-4.5); Potassium 2.7 mmol/L (3.4-5.0); Sodium 130 mmol/L (137-145)
[2021-10-06] MEDS: ENOXAPARIN 30 MG/0.3 ML SYRINGE SUB-Q (08:55)
[2021-10-06] MEDS: DOCUSATE SODIUM 100 MG CAPSULE PO (08:56)
[2021-10-06] MEDS: FUROSEMIDE 20 MG TABLET PO (08:56)
[2021-10-06] MEDS: CLOPIDOGREL BISULFATE 75 MG TABLET PO (08:56)
[2021-10-06] MEDS: POTASSIUM PHOS/SODIUM PHOS 250 MG TABLET PO ×3 (08:56→17:49)
[2021-10-06] MEDS: PANTOPRAZOLE 40 MG TABLET PO ×2 (08:56→21:16)
[2021-10-06] MEDS: predniSONE 20 MG TABLET 40 MG PO (08:56)
[2021-10-06] MEDS: buPROPion HCL 75 MG TABLET 150 MG PO ×2 (08:56→21:15)
[2021-10-06] MEDS: SODIUM CHLORIDE 1 GM TABLET PO ×2 (08:57→21:16)
[2021-10-06] MEDS: FLUTICASONE PROPIONATE 0.05% NA SPR 16 GM BTL (*BKC) 1 SPRAY NASAL ×2 (08:59→21:15)
[2021-10-06] MEDS: NICOTINE (*PBKC) 21 MG PATCH 1 PATCH TRANSDERM (09:00)
[2021-10-06] MEDS: MAGNES & ALUM HYD/SIMETH/DIPHENHYD/LIDOCAINE 119 ML MOUTHWASH BY MOUTH ×4 (09:00→21:17)
[2021-10-06] MEDS: FLUTICASONE/UMECLIDIN/VILANTER 200-62.5-25 MCG ELLIPTA 1 PUFF INHALATION (09:04)
[2021-10-06 09:07] VITALS: O2SAT 95
[2021-10-06 09:37] LABS: Magnesium 2.3 mg/dL (1.6-2.3)
[2021-10-06] MEDS: KCL 20 MEQ/SW 100 ML 100 ML 50 MEQ IVPB ×2 (09:51→11:06)
[2021-10-06] MEDS: ALPRAZolam (*CRX) 0.5 MG TABLET PO ×2 (09:59→21:26)
--- NOTE | 2021-10-06 09:59 | P.PNNP_ITS ---
Progress Note: A&P Assessment and Plan (1) Acute renal failure: Qualifiers: Acute renal failure type: unspecified Qualified Code(s): N17.9 - Acute kidney failure, unspecified Code(s): N17.9 - Acute kidney failure, unspecified Status: Acute Assessment and Plan: * resolved (2) Hyponatremia: Code(s): E87.1 - Hypo-osmolality and hyponatremia Status: Chronic Assessment and Plan: * somewhat of a chronic issue/problem * testing to date: * cortisol low but on steroids * TSH okay * urine electrolytes prerenal * SPEP/UPEP/serum + urine osmolality pending * Most likely due to severe COPD. * She is on morphine as well which could contribute. * On low dose diuretics and salt tablets as well as fluid restriction of 1200cc. * sodium level is up and down in the low 130s. * This may be a chronic baseline for her. Will just continue what we are doing. (3) Rhabdomyolysis: Code(s): M62.82 - Rhabdomyolysis Status: Acute Assessment and Plan: * improving * less level down to 780. * due to statin(?) * Check a CK in the morning (4) Chronic respiratory failure with hypoxia: Code(s): J96.11 - Chronic respiratory failure with hypoxia Status: Chronic Assessment and Plan: * conitnue inhalers and steroids * Pulmonary following * continue supportive therapy (5) Benign essential hypertension: Code(s): I10 - Essential (primary) hypertension Status: Chronic Assessment and Plan: * SBP 140-175 * Anxiety may be playing a role here. * She is on losartan, and Lasix may be helping also. * Will add low-dose diltiazem. Will continue to follow. Subjective Date/time seen: 10/06/21 09:59 Interval history: Patient is feeling about the same. Anxious. Still has swelling. Exam Narrative: General: elderly anxious female in NAD Heart: normal S1 and S2; no rub or gallop Lungs: coarse with wheezes noted Abdomen: soft, nontender, nondistended, positive bowel sounds Extremities: no cyanosis or clubbing; 1+ edema Skin: No rash although extremities still somewhat violaceous Objective Data Vital Signs Vital Signs: Vital Signs - 24 hr 10/05/21 14:15 10/05/21 20:00 10/05/21 21:16 Temperature 36.6 C 36.3 C L Pulse Rate 99 102 H Respiratory Rate 14 18 Blood Pressure 147/81 H 177/81 H Pulse Oximetry 94 3 L 96 10/06/21 06:00 10/06/21 09:07 Temperature 36.4 C L Pulse Rate 102 H Respiratory Rate 20 Blood Pressure 175/72 H Pulse Oximetry 93 95 Intake/Output Intake/Output: Intake & Output 10/03/21 10/04/21 10/05/21 10/06/21 23:59 23:59 23:59 23:59 Intake Total 461 726 0269 Output Total 1600 3300 Balance -900 -2440 1920 Meds/Results Medications: Active Medications Generic Name Dose Route Start Last Admin Trade Name Freq PRN Reason Stop Dose Admin Albuterol 2 puff 09/28/21 02:39 10/05/21 14:25 Albuterol Sulfate (*Sp) Aerosol 1 Puff INHALATION 2 puff Q2HRT PRN Administration Shortness Of Breath Alprazolam 0.5 mg 09/28/21 02:39 10/05/21 21:45 Alprazolam (*Crx) 0.5 Mg Tablet PO 0.5 mg
--- NOTE | 2021-10-06 09:59 | PM.PNNEP ---
Progress Note: A&P Assessment and Plan (1) Acute renal failure: Qualifiers: Acute renal failure type: unspecified Qualified Code(s): N17.9 - Acute kidney failure, unspecified Code(s): N17.9 - Acute kidney failure, unspecified Status: Acute Assessment and Plan: resolved (2) Hyponatremia: Code(s): E87.1 - Hypo-osmolality and hyponatremia Status: Chronic Assessment and Plan: somewhat of a chronic issue/problem testing to date: cortisol low but on steroids TSH okay urine electrolytes prerenal SPEP/UPEP/serum + urine osmolality pending Most likely due to severe COPD. She is on morphine as well which could contribute. On low dose diuretics and salt tablets as well as fluid restriction of 1200cc. sodium level is up and down in the low 130s. This may be a chronic baseline for her. Will just continue what we are doing. (3) Rhabdomyolysis: Code(s): M62.82 - Rhabdomyolysis Status: Acute Assessment and Plan: improving less level down to 780. due to statin(?) Check a CK in the morning (4) Chronic respiratory failure with hypoxia: Code(s): J96.11 - Chronic respiratory failure with hypoxia Status: Chronic Assessment and Plan: conitnue inhalers and steroids Pulmonary following continue supportive therapy (5) Benign essential hypertension: Code(s): I10 - Essential (primary) hypertension Status: Chronic Assessment and Plan: SBP 140-175 Anxiety may be playing a role here. She is on losartan, and Lasix may be helping also. Will add low-dose diltiazem. Will continue to follow. Subjective Date/time seen: 10/06/21 09:59 Interval history: Patient is feeling about the same. Anxious. Still has swelling. Exam Narrative: General: elderly anxious female in NAD Heart: normal S1 and S2; no rub or gallop Lungs: coarse with wheezes noted Abdomen: soft, nontender, nondistended, positive bowel sounds Extremities: no cyanosis or clubbing; 1+ edema Skin: No rash although extremities still somewhat violaceous Objective Data Vital Signs Vital Signs: Vital Signs - 24 hr 10/05/21 14:15 10/05/21 20:00 10/05/21 21:16 Temperature 36.6 C 36.3 C L Pulse Rate 99 102 H Respiratory Rate 14 18 Blood Pressure 147/81 H 177/81 H Pulse Oximetry 94 3 L 96 10/06/21 06:00 10/06/21 09:07 Temperature 36.4 C L Pulse Rate 102 H Respiratory Rate 20 Blood Pressure 175/72 H Pulse Oximetry 93 95 Intake/Output Intake/Output: Intake & Output 10/03/21 10/04/21 10/05/21 10/06/21 23:59 23:59 23:59 23:59 Intake Total 920 094 5648 Output Total 1600 3300 Balance -900 -2440 1920 Meds/Results Medications: Active Medications Generic Name Dose Route Start Last Admin Trade Name Freq PRN Reason Stop Dose Admin Albuterol 2 puff 09/28/21 02:39 10/05/21 14:25 Albuterol Sulfate (*Sp) Aerosol 1 Puff INHALATION 2 puff Q2HRT PRN Administration Shortness Of Breath Alprazolam 0.5 mg 09/28/21 02:39 10/05/21 21:45 Alprazolam (*Crx) 0.5 Mg Tablet PO 0.5 mg TID PRN Administration anxiety Benzonatate 200 mg 09/28/21 02:39 09/29/21 08:42 Benzonatate 100 Mg Capsule PO 200 mg TID PRN Administration Cough Bisacodyl 10 mg 10/01/21 09:27 Bisacodyl 10 Mg Suppository RECTAL QAM PRN Constipation Bupropion HCl 150 mg 09/28/21 09:00 10/06/21 08:56 Bupropion Hcl 75 Mg Tablet PO 150 mg Q12HR JOSE Administration Clopidogrel Bisulfate 75 mg 09/28/21 09:00 10/06/21 08:56 Clopidogrel Bisulfate 75 Mg Tablet PO 75 mg DAILY JOSE Administration Docusate Sodium 100 mg 10/01/21 09:30 10/06/21 08:56 Docusate Sodium 100 Mg Capsule PO 100 mg Q12HR JOSE Administration Enoxaparin Sodium 30 mg 09/30/21 09:00 10/06/21 08:55 Enoxaparin 30 Mg/0.3 Ml Syringe SUB-Q 30 mg DAILY JOSE Administr
--- NOTE | 2021-10-06 10:53 | PM.PNPUL ---
Progress Note: A&P Assessment and Plan (1) Acute exacerbation of chronic obstructive pulmonary disease: Code(s): J44.1 - Chronic obstructive pulmonary disease with (acute) exacerbation Status: Acute Assessment and Plan: 10/04 Respiratory status unchanged over the last 2 days. Decreased expiratory wheezing is still present. IV steroids were discontinued, patient was placed on oral prednisone. Continue with same treatment for COPD exacerbation. She is on bupropion, and this can have a stimulant effect. She may be better on SSRI or SNRI. She is on alprazolam, and may be better on clonazepam, lasts longer, less abuse potential. She is a bag of nerves. This is a huge part of her issues. She is restless and anxious. 10/05 patient is slowly improving. patient is on prednisone 40 mg p.o. q.day, trilogy 200-60 2.5-25 at 1 puff q.day and daliresp 250 mg PO Q day. Will add levalbuterol 1.25 mg nebs q.6 hours standing and ipratropium 0.5 mg nebs q.6 hours standing to for her wheezing. 10/06 Patient states that she has had minimal improvement today and overall has minimal improvement since admission. On further examination patient has been deteriorating at home and is currently only able to walk around her house and requires almost full care from her . When she was admitted she had no fever no chills no rigors and had 2 days worsening dyspnea on exertion with no change in her cough and no change in her chronic phlegm production. She is refusing her nebulization treatments as she states they gave her nose bleed. She has received 7 days of glucocorticoids and She received her prednisone 40 today and I will discontinue it at this time. Will discontinue her lev albuterol and ipratropium nebulizers as she is refusing them. Will continue her trilogy and her Daliresp and order rescue albuterol 2 puffs q.2 hours PRN. She does not want to have a blood gas drawn and states that she would not wear a CPAP or BiPAP mask at night even if she needed at to help her breathe. We had a lengthy discussion and she has had minimal improvement despite maximal treatment and no evidence of pulmonary edema, congestive heart failure (grade 1 diastolic dysfunction),no pulonary hypertension, pneumonia or tracheobronchitis at this time. She has worsening dyspnea on exertion for many years but more so in the last few months and is now very debilitated and relies on her for most of her care. 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 I recommended that she go to inpatient rehabilitation in order to increase her endurance and she adamantly refuses this. She is anxious, she did cry when I told her this. Discussed with Dr. Omer (2) Chronic respiratory failure with hypoxia: Code(s): J96.11 - Chronic respiratory failure with hypoxia Status: Chronic Assessment and Plan: Has been on O2 prior to this admission At 2 L nasal cannula 24-7. 10/05 currently patient is on 3 L nasal cannula saturations 98%. 10/06 Currently she is on 3 L nasal cannula saturations 95% (3) Peripheral vascular disease: Code(s): I73.9 - Peripheral vascular disease, unspecified Status: Acute Assessment and Plan: Patient has on clinical grounds peripheral vascular disease with worsening of bluish discoloration of lower extremities from mid thighs down to toes. This is probably the source of the elevated CK. 10/06 have discussed with hospitalist increasing her dose of diuretics now that her acute renal failure has resolved. Subjective Date/time seen: 10/06/21 10:53 Interval history: 10/04/21 16:35 76 yo female seen in f/u for COPD exacerbation; has anxiety. She is not as distressed. Patient without any new respiratory symptoms. Afebrile, with less shortness of breath. Lower extremitie
[2021-10-06] MEDS: MORPHINE SULFATE (*CRX) 4 MG/ML INJ IV PUSH (11:03)
[2021-10-06 11:52] LABS: Potassium 3.2 mmol/L (3.4-5.0)
--- NOTE | 2021-10-06 11:59 | PM.IMPN ---
Progress Note: A&P Assessment and Plan (1) Acute renal failure: Qualifiers: Acute renal failure type: unspecified Qualified Code(s): N17.9 - Acute kidney failure, unspecified Code(s): N17.9 - Acute kidney failure, unspecified Status: Acute Assessment and Plan: Patient's renal function normal with BUN 9, Cr 0.7 and CrCl 65 on admission. She had a CTA 09/29. Her oliguric ANEL probably multifactorial from rhabdomyolysis, dehydration, contrast, Lasix. Urine studies consistent with pre-renal and Ueos negative; complement normal; UA clear except for 3-5 RBC (from the rhabdo); Renal US and renal doppler normal. Nephrology consulted. Cozaar and Crestor held. Treated with IV fluids but stopped now. Lasix resumed. BUN peaked at 82 and Cr at 2.9 but now ANEL has resolved. Potassium low and IV replacement ordered. Mag normal. Scheduled potassium ordered and will also resume Cozaar. Phos also low but better and remains on oral replacement. Follow. Increase Lasix for the edema back to home dose. (2) Rhabdomyolysis: Code(s): M62.82 - Rhabdomyolysis Status: Acute Assessment and Plan: Patient with ANEL as above. TCK peaked at 2314. Related to Crestor? Related to ischemia? Rhabdo possibly playing a part in her ANEL. Treated with IV fluids with bicarb but stopped now. Mildly elevated LFTs felt related to the rhabdo. Complains of right hip pain and RLE weakness. CT brain showing no acute findings. Probably related to the rhabdo. TCK has dropped to 780. Continue to hold Crestor. Contineu PT/OT (3) Acute and chronic respiratory failure with hypoxia: Code(s): J96.21 - Acute and chronic respiratory failure with hypoxia Status: Acute Assessment and Plan: Patient with chronic respiratory failure on 2-3L at rest and up to 4L with exertion at home. She presents with SOB with ABG 7.44/50/88 on BiPAP. She had elevated carboxyhemo 3.9%. CTA chest negative for PE. She said she no longer smokes since March and has electric furnace and a working CO monitor. She was weaned to 3L now. Continue current treatment plan. Pulmonary following and appreciate their input. (4) AAA (abdominal aortic aneurysm): Qualifiers: Presence of rupture: without rupture Qualified Code(s): I71.4 - Abdominal aortic aneurysm, without rupture Code(s): I71.4 - Abdominal aortic aneurysm, without rupture Status: Acute Assessment and Plan: Noted to have AAA. CTA abd and LE Oct 2020 showing a 5.2 x 3.8 cm fusiform aneurysm of the distal descending thoracic aorta and a 3.3 x 2.8 cm fusiform infrarenal abdominal aortic aneurysm. She also has PAD with CTA showing: -- moderate stenosis of the bilateral external iliac arteries and mild stenosis of the bilateral internal iliac arteries. -- moderate stenosis in the Right superficial femoral artery. The popliteal artery and tibioperoneal trunk demonstrate calcified atherosclerosis without significant stenosis. There is a three-vessel runoff at the ankle. -- there is a 10 cm occluded segment of the Left mid superficial femoral artery. The popliteal artery and tibial peroneal trunk demonstrate calcified atherosclerosis without significant stenosis. There is a three-vessel runoff at the ankle. CTA of the chest 09/29/21 showing enlarging aneurysm. Continue Plavix/ASA. No smoking is imperative. Crestor held due to rhabdo. Discussed case with radiology who felt no significant change in the atherosclerotic findings of the renal arteries. He felt the biggest aortic aneurysmal changes that was seen by the CTA on 09/29 was only slightly worsened. Legs look worse possibly related to them being dependent. Arterial US LE 10/02 showing minimal changes on the left. Will need to see vascular surgeon after discharge. (5) COPD exacerbation: Code(s): J44.1 - Chronic obstructive pulmonary disease with (acute) exacerbation Status: Acute Assessment and Plan: As above. PFTs in [facility]
--- NOTE | 2021-10-06 13:09 | PC.NURSE ---
On 10/06/21, the student, [Nir Cole ], provided care and completed [facility] documentation on this patient. I have reviewed the student's documentation and agree with the findings.
[2021-10-06] MEDS: FUROSEMIDE 40 MG TABLET PO ×2 (13:23→21:16)
[2021-10-06 14:00] VITALS: BP 161/78; PULSE 103; RESP 22; TEMP 36.1; O2SAT 100
--- NOTE | 2021-10-06 15:05 | PCPTNOTE ---
Patient refused treatment this session due to c/o fatigue, SOB, leg weakness, and LE discomfort following activity. Educated patient in the importance of participating in therapy to improve mobility, strength, and endurance. Patient continue to decline stating she was not ready for rehab. Patient also states that she does not want to go to a rehab facility and plans to return home with her at discharge.
[2021-10-06] MEDS: POTASSIUM CHLORIDE 20 MEQ TABLET.ER PO (17:49)
[2021-10-06 20:00] VITALS: O2SAT 97
[2021-10-06] MEDS: ALBUTEROL SULFATE (*SP) AEROSOL 1 PUFF 2 PUFF INHALATION (20:09)
[2021-10-06] MEDS: MORPHINE SULFATE (*CRX) 2 MG/ML INJ IV PUSH (21:25)
[2021-10-06 22:00] VITALS: BP 149/69; PULSE 88; RESP 20; TEMP 37.8; O2SAT 99
[2021-10-07] VITALS (13 sets, daily range): BP systolic 138–164; BP diastolic 68–77; PULSE 84–108; RESP 18–24; TEMP 36.4–36.6; O2SAT 86–100
[2021-10-07] MEDS: ALBUTEROL SULFATE (*SP) AEROSOL 1 PUFF 2 PUFF INHALATION (00:52)
--- NOTE | 2021-10-07 02:22 | PCRCNOTE ---
pt refusing nebulizers stating they have made her nose bleed. pt will call for PRN if needed
[2021-10-07] MEDS: ALPRAZolam (*CRX) 0.5 MG TABLET PO ×2 (06:17→20:51)
[2021-10-07] MEDS: MAGNES & ALUM HYD/SIMETH/DIPHENHYD/LIDOCAINE 119 ML MOUTHWASH BY MOUTH ×5 (06:19→20:55)
[2021-10-07] MEDS: FUROSEMIDE 40 MG TABLET PO ×2 (08:53→13:36)
[2021-10-07] MEDS: ENOXAPARIN 40 MG/0.4 ML SYRINGE SUB-Q (08:53)
[2021-10-07] MEDS: DOCUSATE SODIUM 100 MG CAPSULE PO (08:53)
[2021-10-07] MEDS: PANTOPRAZOLE 40 MG TABLET PO ×2 (08:53→20:55)
[2021-10-07] MEDS: FLUTICASONE PROPIONATE 0.05% NA SPR 16 GM BTL (*BKC) 1 SPRAY NASAL ×2 (08:53→20:54)
[2021-10-07] MEDS: buPROPion HCL 75 MG TABLET 150 MG PO ×2 (08:54→20:54)
[2021-10-07] MEDS: SODIUM CHLORIDE 1 GM TABLET PO ×2 (08:54→20:56)
[2021-10-07] MEDS: POTASSIUM CHLORIDE 20 MEQ TABLET.ER PO (08:54)
[2021-10-07] MEDS: CLOPIDOGREL BISULFATE 75 MG TABLET PO (08:54)
[2021-10-07] MEDS: NICOTINE (*PBKC) 21 MG PATCH 1 PATCH TRANSDERM (08:55)
[2021-10-07] MEDS: FLUTICASONE/UMECLIDIN/VILANTER 200-62.5-25 MCG ELLIPTA 1 PUFF INHALATION (09:11)
--- NOTE | 2021-10-07 10:16 | PM.PNPUL ---
Progress Note: A&P Assessment and Plan (1) Acute exacerbation of chronic obstructive pulmonary disease: Code(s): J44.1 - Chronic obstructive pulmonary disease with (acute) exacerbation Status: Acute Assessment and Plan: 10/04 Respiratory status unchanged over the last 2 days. Decreased expiratory wheezing is still present. IV steroids were discontinued, patient was placed on oral prednisone. Continue with same treatment for COPD exacerbation. She is on bupropion, and this can have a stimulant effect. She may be better on SSRI or SNRI. She is on alprazolam, and may be better on clonazepam, lasts longer, less abuse potential. She is a bag of nerves. This is a huge part of her issues. She is restless and anxious. 10/05 patient is slowly improving. patient is on prednisone 40 mg p.o. q.day, trilogy 200-60 2.5-25 at 1 puff q.day and daliresp 250 mg PO Q day. Will add levalbuterol 1.25 mg nebs q.6 hours standing and ipratropium 0.5 mg nebs q.6 hours standing to for her wheezing. 10/06 Patient states that she has had minimal improvement today and overall has minimal improvement since admission. On further examination patient has been deteriorating at home and is currently only able to walk around her house and requires almost full care from her . When she was admitted she had no fever no chills no rigors and had 2 days worsening dyspnea on exertion with no change in her cough and no change in her chronic phlegm production. She is refusing her nebulization treatments as she states they gave her nose bleed. She has received 7 days of glucocorticoids and She received her prednisone 40 today and I will discontinue it at this time. Will discontinue her lev albuterol and ipratropium nebulizers as she is refusing them. Will continue her trilogy and her Daliresp and order rescue albuterol 2 puffs q.2 hours PRN. She does not want to have a blood gas drawn and states that she would not wear a CPAP or BiPAP mask at night even if she needed at to help her breathe. We had a lengthy discussion and she has had minimal improvement despite maximal treatment and no evidence of pulmonary edema, congestive heart failure (grade 1 diastolic dysfunction),no pulonary hypertension, pneumonia or tracheobronchitis at this time. She has worsening dyspnea on exertion for many years but more so in the last few months and is now very debilitated and relies on her for most of her care. 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 I recommended that she go to inpatient rehabilitation in order to increase her endurance and she adamantly refuses this. She is anxious, she did cry when I told her this. Discussed with Dr. Omer. 10/07 Patient remains stable overnight from a pulmonary perspective on trelegy, dalirap and only used her rescue albuterol 1 time in the last 24 hours. She has no wheezes on exam. She is severely limited but refusing inpatient rehabilitation. Care coordination should talk to her about in-home services. Patient has refused arterial blood gas to determine if she is hypercarbic. Patient states she would not wear CPAP or BiPAP mask at home even if she were hypercarbic and even if this would help her breathe in the future. If she remains in the hospital today I will perform an overnight oximetry on 3 L nasal cannula. Patient is suitable for discharge from a pulmonary perspective on these pulmonary medications. Trelegy 200-62.5-25 at 1 puff q.day. Daliresp 500 mcg p.o. q.day rescue albuterol 2 puffs q.4 hours p.r.n. shortness of breath and wheezing rescue albuterol nebulized 2.5 mg Q 4 hours p.r.n. shortness of breath or wheezing home O2 oxygen per formal assessment which I have ordered for today. Oxygen at night at the same level as required with ambulation or If remains in hospital tonight will perform overnight oximetry on 3 L (2) Ch
--- NOTE | 2021-10-07 11:02 | PCRCNOTE ---
Addendum entered by Kristan English CRTT 10/07/21 11:34: O2 AT 2 LITERS AT REST AND WITH ACTIVITY Original Note: HOME O2 EVAL COMPLETE, NO CHANGES IN HOME SETTING. PT HAS HOME CONCENTRATOR FOR DISCHARGE.
[2021-10-07 11:53] LABS: Basophils Percent Auto 0.1 % (0.2-1.2); Eosinophils Percent Auto 0.2 % (0-4.4); Hematocrit 38.1 % (37.0-47.0); Hemoglobin 13.1 g/dL (12.0-15.0); Immature Granulocyte Absolute 0.09 K/mm3 (0.00-0.031); Lymphocytes Absolute Auto 0.91 K/mm3 (0.9-3.2); Lymphocytes Percent Auto 10.1 % (18.3-44.2); Mean Corpuscular HGB Conc 34.4 g/dl (32-36); Mean Corpuscular Hemoglobin 31.9 pg (26-34); Mean Corpuscular Volume 92.7 fl (80-100); Mean Platelet Volume 8.9 fl (7.4-10.4); Monocytes Absolute Auto 0.9 K/mm3 (0.1-0.6); Monocytes Percent Auto 9.6 % (2.6-8.5); Neutrophils Absolute Auto 7.1 K/mm3 (1.3-6.7); Platelet Count Result 230 k/mm3 (150-375); Red Blood Count 4.11 M/mm3 (4.2-5.4); Red Cell Distribution Width 14.1 % (11.5-14.5)
[2021-10-07 12:07] LABS: Alanine Aminotransferase 57 U/L (4-35); Albumin Level 3.6 g/dL (3.5-5.1); Alkaline Phosphatase 66 U/L (38-126); Aspartate Amino Transferase 50 U/L (14-36); Bilirubin,Total 1.1 mg/dL (0.2-1.3); Blood Urea Nitrogen 18 mg/dL (7-17); Calcium 8.7 mg/dL (8.4-10.2); Carbon Dioxide > 40 mmol/L (22-30); Chloride 83 mmol/L (98-107); Creatine Kinase 161 U/L (30-135); Estimated CRCL calculation 57 ml/min; Estimated Glomerular Filt Rate > 60; Glucose 134 mg/dL (65-110); Phosphorus 1.3 mg/dL (2.5-4.5); Potassium 2.9 mmol/L (3.4-5.0); Sodium 127 mmol/L (137-145)
[2021-10-07] MEDS: LOSARTAN POTASSIUM 100 MG TABLET PO (13:35)
--- NOTE | 2021-10-07 15:06 | PM.IMPN ---
Progress Note: A&P Assessment and Plan (1) Acute renal failure: Qualifiers: Acute renal failure type: unspecified Qualified Code(s): N17.9 - Acute kidney failure, unspecified Code(s): N17.9 - Acute kidney failure, unspecified Status: Acute Assessment and Plan: Patient's renal function normal with BUN 9, Cr 0.7 and CrCl 65 on admission. She had a CTA 09/29. Her oliguric ANEL probably multifactorial from rhabdomyolysis, dehydration, contrast, and/or Lasix. Urine studies consistent with pre-renal and Ueos negative; complement normal; UA clear except for 3-5 RBC (from the rhabdo); Renal US and renal doppler normal. Nephrology consulted. Cozaar and Crestor held. BUN peaked at 82 and Cr at 2.9. Treated with IV fluids but stopped now. ANEL resolved. Lasix resumed. Potassium low and IV replacement ordered but she resumed. Phos still low. Continue scheduled potassium ordered. Replace with Phos IV. Follow. Change Lasix back to home regiment 60mg IV bid. Repeat electrolytes later tonight and continue to replace. Check UA with complaints of dysuria. (2) Rhabdomyolysis: Code(s): M62.82 - Rhabdomyolysis Status: Acute Assessment and Plan: Patient with ANEL as above. TCK peaked at 2314. Related to Crestor? Related to ischemia? Rhabdo possibly playing a part in her ANEL. Treated with IV fluids with bicarb but stopped now. Mildly elevated LFTs felt related to the rhabdo. Complains of right hip pain and RLE weakness. CT brain showing no acute findings. Probably related to the rhabdo. TCK has dropped to 161. Continue to hold Crestor. Continue PT/OT (3) Acute and chronic respiratory failure with hypoxia: Code(s): J96.21 - Acute and chronic respiratory failure with hypoxia Status: Acute Assessment and Plan: Patient with chronic respiratory failure on 2-3L at rest and up to 4L with exertion at home. She presents with SOB with ABG 7.44/50/88 on BiPAP. She had elevated carboxyhemo 3.9%. CTA chest negative for PE. She said she no longer smokes since March and has electric furnace and a working CO monitor. She was weaned to 1-2L now. Continue current treatment plan. Pulmonary following and appreciate their input. (4) AAA (abdominal aortic aneurysm): Qualifiers: Presence of rupture: without rupture Qualified Code(s): I71.4 - Abdominal aortic aneurysm, without rupture Code(s): I71.4 - Abdominal aortic aneurysm, without rupture Status: Acute Assessment and Plan: Noted to have AAA. CTA abd and LE Oct 2020 showing a 5.2 x 3.8 cm fusiform aneurysm of the distal descending thoracic aorta and a 3.3 x 2.8 cm fusiform infrarenal abdominal aortic aneurysm. She also has PAD with CTA showing: -- moderate stenosis of the bilateral external iliac arteries and mild stenosis of the bilateral internal iliac arteries. -- moderate stenosis in the Right superficial femoral artery. The popliteal artery and tibioperoneal trunk demonstrate calcified atherosclerosis without significant stenosis. There is a three-vessel runoff at the ankle. -- there is a 10 cm occluded segment of the Left mid superficial femoral artery. The popliteal artery and tibial peroneal trunk demonstrate calcified atherosclerosis without significant stenosis. There is a three-vessel runoff at the ankle. CTA of the chest 09/29/21 showing enlarging aneurysm. Discussed case with radiology who felt no significant change in the atherosclerotic findings of the renal arteries. He felt the biggest aortic aneurysmal changes that was seen by the CTA on 09/29 was only slightly worsened. Legs clinically look worse possibly related to them being dependent. Arterial US LE 10/02 showing minimal changes on the left. Continue Plavix/ASA. No smoking is imperative. Crestor held due to rhabdo. Will need to see vascular surgeon after discharge. (5) COPD exacerbation: Code(s): J44.1 - Chronic obstructive pulmonary disease with (acute) exacerbatio
[2021-10-07] MEDS: SODIUM PHOSPHATE 20 MM in DEXTROSE 5% IN WATER 250 ML 50 MM IVPB (16:54)
[2021-10-07] MEDS: POTASSIUM CHLORIDE 20 MEQ TABLET 40 MEQ PO (16:57)
[2021-10-07 19:14] LABS: Add Urine Microscopic? YES; Appearance Urine Clear (Clear); Bilirubin Urine Negative (Negative); Blood Urine Negative (Negative); Color Urine Yellow (Yellow); Glucose Urine UA Negative (Negative); Ketones Urine Negative (Negative); Leukocyte Esterase Ur Negative LEU/UL (Negative); Mucus Urine Rare /lpf; Nitrate Urine Negative (Negative); Protein Urine Negative (Negative); Squamous Epithelial Cell Urine Rare /hpf (Few)
[2021-10-07 20:03] LABS: Magnesium 2.1 mg/dL (1.6-2.3); Phosphorus 2.1 mg/dL (2.5-4.5)
[2021-10-07 20:08] LABS: Potassium 2.7 mmol/L (3.4-5.0)
[2021-10-07] MEDS: MORPHINE SULFATE (*CRX) 2 MG/ML INJ IV PUSH (20:52)
[2021-10-08] MEDS: MAGNES & ALUM HYD/SIMETH/DIPHENHYD/LIDOCAINE 119 ML MOUTHWASH BY MOUTH ×5 (01:21→23:10)
[2021-10-08 06:50] VITALS: BP 158/72; PULSE 97; RESP 18; TEMP 36.6; O2SAT 98
[2021-10-08 07:06] LABS: Hematocrit 41.8 % (37.0-47.0); Hemoglobin 14.2 g/dL (12.0-15.0); Mean Corpuscular Hemoglobin 31.9 pg (26-34); Mean Corpuscular Volume 93.9 fl (80-100); Mean Platelet Volume 9.1 fl (7.4-10.4); Platelet Count Result 277 k/mm3 (150-375); Red Blood Count 4.45 M/mm3 (4.2-5.4); Red Cell Distribution Width 14.1 % (11.5-14.5)
[2021-10-08 07:22] LABS: Albumin Level 3.9 g/dL (3.5-5.1); Anion Gap 7 mmol/L (8-16); Blood Urea Nitrogen 17 mg/dL (7-17); Calcium 8.9 mg/dL (8.4-10.2); Carbon Dioxide 38 mmol/L (22-30); Chloride 88 mmol/L (98-107); Estimated CRCL calculation 46 ml/min; Estimated Glomerular Filt Rate 54; Glucose 112 mg/dL (65-110); Magnesium 2.1 mg/dL (1.6-2.3); Phosphorus 2.3 mg/dL (2.5-4.5); Potassium 2.9 mmol/L (3.4-5.0); Sodium 133 mmol/L (137-145)
[2021-10-08 08:00] VITALS: O2SAT 94
--- NOTE | 2021-10-08 08:52 | PM.PNPUL ---
Progress Note: A&P Assessment and Plan (1) Acute exacerbation of chronic obstructive pulmonary disease: Code(s): J44.1 - Chronic obstructive pulmonary disease with (acute) exacerbation Status: Acute Assessment and Plan: 10/04 Respiratory status unchanged over the last 2 days. Decreased expiratory wheezing is still present. IV steroids were discontinued, patient was placed on oral prednisone. Continue with same treatment for COPD exacerbation. She is on bupropion, and this can have a stimulant effect. She may be better on SSRI or SNRI. She is on alprazolam, and may be better on clonazepam, lasts longer, less abuse potential. She is a bag of nerves. This is a huge part of her issues. She is restless and anxious. 10/05 patient is slowly improving. patient is on prednisone 40 mg p.o. q.day, trilogy 200-60 2.5-25 at 1 puff q.day and daliresp 250 mg PO Q day. Will add levalbuterol 1.25 mg nebs q.6 hours standing and ipratropium 0.5 mg nebs q.6 hours standing to for her wheezing. 10/06 Patient states that she has had minimal improvement today and overall has minimal improvement since admission. On further examination patient has been deteriorating at home and is currently only able to walk around her house and requires almost full care from her . When she was admitted she had no fever no chills no rigors and had 2 days worsening dyspnea on exertion with no change in her cough and no change in her chronic phlegm production. She is refusing her nebulization treatments as she states they gave her nose bleed. She has received 7 days of glucocorticoids and She received her prednisone 40 today and I will discontinue it at this time. Will discontinue her lev albuterol and ipratropium nebulizers as she is refusing them. Will continue her trilogy and her Daliresp and order rescue albuterol 2 puffs q.2 hours PRN. She does not want to have a blood gas drawn and states that she would not wear a CPAP or BiPAP mask at night even if she needed at to help her breathe. We had a lengthy discussion and she has had minimal improvement despite maximal treatment and no evidence of pulmonary edema, congestive heart failure (grade 1 diastolic dysfunction),no pulonary hypertension, pneumonia or tracheobronchitis at this time. She has worsening dyspnea on exertion for many years but more so in the last few months and is now very debilitated and relies on her for most of her care. 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 I recommended that she go to inpatient rehabilitation in order to increase her endurance and she adamantly refuses this. She is anxious, she did cry when I told her this. Discussed with Dr. Omer. 10/07 Patient remains stable overnight from a pulmonary perspective on [facility] and only used her rescue albuterol 1 time in the last 24 hours. She has no wheezes on exam. She is severely limited but refusing inpatient rehabilitation. Care coordination should talk to her about in-home services. Patient has refused arterial blood gas to determine if she is hypercarbic. Patient states she would not wear CPAP or BiPAP mask at home even if she were hypercarbic and even if this would help her breathe in the future. If she remains in the hospital today I will perform an overnight oximetry on 3 L nasal cannula. 10/08 Patient tells me that she is breathing back at her baseline. She has few end expiratory wheezes and her left lung but none on the right. The lung she states she had trouble sleeping last night due to frequent urination and dry mouth. Being diuresed and states that her edema is better. Patient had an overnight oximetry on 3 L nasal cannula with an average saturation 98%, lowest saturation 88%. Time with saturation less than or equal to 88% was 0 minutes.home O2 assessment demonstrated patient requires 2 L nasal cannula with rest and with ambulation. Patient is suitable for discharge from a
[2021-10-08] MEDS: FLUTICASONE PROPIONATE 0.05% NA SPR 16 GM BTL (*BKC) 1 SPRAY NASAL ×2 (10:21→21:00)
[2021-10-08] MEDS: ENOXAPARIN 40 MG/0.4 ML SYRINGE SUB-Q (10:21)
[2021-10-08] MEDS: busPIRone HCL 5 MG TABLET PO ×2 (10:22→21:30)
[2021-10-08] MEDS: CLOPIDOGREL BISULFATE 75 MG TABLET PO (10:22)
[2021-10-08] MEDS: clonazePAM (*CRX) 0.25 MG TABLET PO (10:22)
[2021-10-08] MEDS: NICOTINE (*PBKC) 21 MG PATCH 1 PATCH TRANSDERM (10:23)
[2021-10-08] MEDS: FUROSEMIDE 20 MG TABLET 60 MG PO (10:23)
[2021-10-08] MEDS: LOSARTAN POTASSIUM 100 MG TABLET PO (10:25)
[2021-10-08] MEDS: buPROPion HCL 75 MG TABLET 150 MG PO ×2 (10:25→21:31)
[2021-10-08] MEDS: SODIUM CHLORIDE 1 GM TABLET PO ×2 (10:26→21:30)
[2021-10-08] MEDS: PANTOPRAZOLE 40 MG TABLET PO ×2 (10:26→21:30)
[2021-10-08] MEDS: POTASSIUM/PHOSPHORUS/SODIUM 1.5 GM PACKET 1 PACKET PO (10:27)
[2021-10-08] MEDS: POTASSIUM CHLORIDE 20 MEQ TABLET.ER 40 MEQ PO ×2 (10:32→16:58)
[2021-10-08 11:43] LABS: Potassium 2.7 mmol/L (3.4-5.0)
--- NOTE | 2021-10-08 11:48 | PCRCNOTE ---
Window of time for administration has passed. See next scheduled administration.
--- NOTE | 2021-10-08 12:07 | P.PNNP_ITS ---
Progress Note: A&P Assessment and Plan (1) Acute renal failure: Qualifiers: Acute renal failure type: unspecified Qualified Code(s): N17.9 - Acute kidney failure, unspecified Code(s): N17.9 - Acute kidney failure, unspecified Status: Acute Assessment and Plan: * resolved (2) Hyponatremia: Code(s): E87.1 - Hypo-osmolality and hyponatremia Status: Chronic Assessment and Plan: * somewhat of a chronic issue/problem * testing to date: * cortisol low but on steroids * TSH okay * urine electrolytes prerenal * SPEP/UPEP/serum + urine osmolality pending * Most likely due to severe COPD. * She is on morphine as well which could contribute. * On low dose diuretics and salt tablets as well as fluid restriction of 1200cc. * for some reason the sodium dropped to 127. * She is tired of the fluid restriction. * Will decrease diuretics. The chest x-ray does not look a lot like fluid. Her swelling may just be because of her right-sided failure because of her severe COPD. * I will add demeclocycline as well. (3) Rhabdomyolysis: Code(s): M62.82 - Rhabdomyolysis Status: Acute Assessment and Plan: * improving * less level down to One [place]-one (4) Chronic respiratory failure with hypoxia: Code(s): J96.11 - Chronic respiratory failure with hypoxia Status: Chronic Assessment and Plan: * conitnue inhalers and steroids * Pulmonary following * continue supportive therapy (5) Benign essential hypertension: Code(s): I10 - Essential (primary) hypertension Status: Chronic Assessment and Plan: * SBP 130-175 * Anxiety may be playing a role here. * patient is back on losartan. Subjective Date/time seen: 10/08/21 12:07 Interval history: Patient is feeling about the same. Still very anxious and very frustrated with her situation. She is very thirsty. Still has swelling. This is about the same Exam Narrative: General: elderly anxious female in NAD Heart: normal S1 and S2; no rub or gallop Lungs: coarse with wheezes noted Abdomen: soft, nontender, nondistended, positive bowel sounds Extremities: 1+ edema Skin: No rash although extremities still somewhat violaceous Objective Data Vital Signs Vital Signs: Vital Signs - 24 hr 10/07/21 14:00 10/07/21 20:00 10/07/21 22:00 Temperature 36.4 C L 36.6 C Pulse Rate 108 H 88 Respiratory Rate 24 H 18 Blood Pressure 164/70 H 138/68 Pulse Oximetry 99 97 100 10/07/21 22:24 10/08/21 06:50 10/08/21 08:00 Temperature 36.6 C Pulse Rate 97 Respiratory Rate 18 Blood Pressure 158/72 H Pulse Oximetry 94 98 94 Intake/Output Intake/Output: Intake & Output 10/05/21 10/06/21 10/07/21 10/08/21 23:59 23:59 23:59 23:59 Intake Total 2249 656 0533 240 Output Total 1999 Balance 1920 920 -176 240 Meds/Results Medications: Active Medications Generic Name Dose Route Start Last Admin Trade Name Freq PRN Reason Stop Dose Admin Albuterol 2 puff 09/28/21 02:39 10/07/21 00:52 Albuterol Sulfate (*Sp) Aerosol 1 Puff INHALATION 2 puff Q2HRT PRN Administration
--- NOTE | 2021-10-08 12:07 | PM.PNNEP ---
Progress Note: A&P Assessment and Plan (1) Acute renal failure: Qualifiers: Acute renal failure type: unspecified Qualified Code(s): N17.9 - Acute kidney failure, unspecified Code(s): N17.9 - Acute kidney failure, unspecified Status: Acute Assessment and Plan: resolved (2) Hyponatremia: Code(s): E87.1 - Hypo-osmolality and hyponatremia Status: Chronic Assessment and Plan: somewhat of a chronic issue/problem testing to date: cortisol low but on steroids TSH okay urine electrolytes prerenal SPEP/UPEP/serum + urine osmolality pending Most likely due to severe COPD. She is on morphine as well which could contribute. On low dose diuretics and salt tablets as well as fluid restriction of 1200cc. for some reason the sodium dropped to 127. She is tired of the fluid restriction. Will decrease diuretics. The chest x-ray does not look a lot like fluid. Her swelling may just be because of her right-sided failure because of her severe COPD. I will add demeclocycline as well. (3) Rhabdomyolysis: Code(s): M62.82 - Rhabdomyolysis Status: Acute Assessment and Plan: improving less level down to One hundred sixty-one (4) Chronic respiratory failure with hypoxia: Code(s): J96.11 - Chronic respiratory failure with hypoxia Status: Chronic Assessment and Plan: conitnue inhalers and steroids Pulmonary following continue supportive therapy (5) Benign essential hypertension: Code(s): I10 - Essential (primary) hypertension Status: Chronic Assessment and Plan: SBP 130-175 Anxiety may be playing a role here. patient is back on losartan. Subjective Date/time seen: 10/08/21 12:07 Interval history: Patient is feeling about the same. Still very anxious and very frustrated with her situation. She is very thirsty. Still has swelling. This is about the same Exam Narrative: General: elderly anxious female in NAD Heart: normal S1 and S2; no rub or gallop Lungs: coarse with wheezes noted Abdomen: soft, nontender, nondistended, positive bowel sounds Extremities: 1+ edema Skin: No rash although extremities still somewhat violaceous Objective Data Vital Signs Vital Signs: Vital Signs - 24 hr 10/07/21 14:00 10/07/21 20:00 10/07/21 22:00 Temperature 36.4 C L 36.6 C Pulse Rate 108 H 88 Respiratory Rate 24 H 18 Blood Pressure 164/70 H 138/68 Pulse Oximetry 99 97 100 10/07/21 22:24 10/08/21 06:50 10/08/21 08:00 Temperature 36.6 C Pulse Rate 97 Respiratory Rate 18 Blood Pressure 158/72 H Pulse Oximetry 94 98 94 Intake/Output Intake/Output: Intake & Output 10/05/21 10/06/21 10/07/21 10/08/21 23:59 23:59 23:59 23:59 Intake Total 1728 178 2895 240 Output Total 1999 Balance 1920 920 -730 240 Meds/Results Medications: Active Medications Generic Name Dose Route Start Last Admin Trade Name Freq PRN Reason Stop Dose Admin Albuterol 2 puff 09/28/21 02:39 10/07/21 00:52 Albuterol Sulfate (*Sp) Aerosol 1 Puff INHALATION 2 puff Q2HRT PRN Administration Shortness Of Breath Benzonatate 200 mg 09/28/21 02:39 09/29/21 08:42 Benzonatate 100 Mg Capsule PO 200 mg TID PRN Administration Cough Bisacodyl 10 mg 10/01/21 09:27 Bisacodyl 10 Mg Suppository RECTAL QAM PRN Constipation Bupropion HCl 150 mg 09/28/21 09:00 10/08/21 10:25 Bupropion Hcl 75 Mg Tablet PO 150 mg Q12HR JOSE Administration Buspirone HCl 5 mg 10/08/21 09:00 10/08/21 10:22 Buspirone Hcl 5 Mg Tablet PO 5 mg Q12HR JOSE Administration Clonazepam 0.25 mg 10/08/21 09:00 10/08/21 10:22 Clonazepam (*Crx) 0.25 Mg Tablet PO 0.25 mg Q12HR JOSE Administration Clopidogrel Bisulfate 75 mg 09/28/21 09:00 10/08/21 10:22 Clopidogrel Bisulfate 75 Mg Tablet PO 75 mg DAILY JOSE Administrati
[2021-10-08 14:00] VITALS: BP 144/91; PULSE 106; RESP 24; TEMP 36.6; O2SAT 98
--- NOTE | 2021-10-08 14:21 | PM.IMPN ---
Progress Note: A&P Assessment and Plan (1) Hypokalemia: Code(s): E87.6 - Hypokalemia Status: Acute Assessment and Plan: Potassium low and IV replacement ordered but she refused IV. Phos still low and this is being replaced. Continue scheduled potassium ordered but increase frequency and dose. Repeat level tonight. (2) Acute renal failure: Qualifiers: Acute renal failure type: unspecified Qualified Code(s): N17.9 - Acute kidney failure, unspecified Code(s): N17.9 - Acute kidney failure, unspecified Status: Acute Assessment and Plan: Patient's renal function normal with BUN 9, Cr 0.7 and CrCl 65 on admission. She had a CTA 09/29. Her oliguric ANEL probably multifactorial from rhabdomyolysis, dehydration, contrast, and/or Lasix. Urine studies consistent with pre-renal and Ueos negative; complement normal; UA clear except for 3-5 RBC (from the rhabdo); Renal US and renal doppler normal. Nephrology consulted. Cozaar and Crestor held. BUN peaked at 82 and Cr at 2.9. Treated with IV fluids but stopped now. ANEL resolved. Lasix resumed. Potassium and Phos still low. UA clear. As above. Continue Lasix home regiment 60mg IV bid. (3) Rhabdomyolysis: Code(s): M62.82 - Rhabdomyolysis Status: Acute Assessment and Plan: Patient with ANEL as above. TCK peaked at 2314. Related to Crestor? Related to ischemia? Rhabdo possibly playing a part in her ANEL. Treated with IV fluids with bicarb but stopped now. Mildly elevated LFTs felt related to the rhabdo. Complains of right hip pain and RLE weakness. CT brain showing no acute findings. Probably related to the rhabdo. TCK has dropped to 161. Continue to hold Crestor. Continue PT/OT. Resolved (4) Acute and chronic respiratory failure with hypoxia: Code(s): J96.21 - Acute and chronic respiratory failure with hypoxia Status: Acute Assessment and Plan: Patient with chronic respiratory failure on 2-3L at rest and up to 4L with exertion at home. She presents with SOB with ABG 7.44/50/88 on BiPAP. She had elevated carboxyhemo 3.9%. CTA chest negative for PE. She said she no longer smokes since March and has electric furnace and a working CO monitor. She was weaned to 2L now. Continue current treatment plan. Pulmonary following and appreciate their input. (5) Anxiety and depression: Code(s): F41.9 - Anxiety disorder, unspecified; F32.9 - Major depressive disorder, single episode, unspecified Status: Acute Assessment and Plan: patient takes alprazolam and WB at home. Pulmonary recommnends clonazepam and possibly changing off of WB. Her alprazolam fell off the DEC so will start clonazepam today. Continue WB but add Buspar. (6) AAA (abdominal aortic aneurysm): Qualifiers: Presence of rupture: without rupture Qualified Code(s): I71.4 - Abdominal aortic aneurysm, without rupture Code(s): I71.4 - Abdominal aortic aneurysm, without rupture Status: Acute Assessment and Plan: Noted to have AAA. CTA abd and LE Oct 2020 showing a 5.2 x 3.8 cm fusiform aneurysm of the distal descending thoracic aorta and a 3.3 x 2.8 cm fusiform infrarenal abdominal aortic aneurysm. She also has PAD with CTA showing: -- moderate stenosis of the bilateral external iliac arteries and mild stenosis of the bilateral internal iliac arteries. -- moderate stenosis in the Right superficial femoral artery. The popliteal artery and tibioperoneal trunk demonstrate calcified atherosclerosis without significant stenosis. There is a three-vessel runoff at the ankle. -- there is a 10 cm occluded segment of the Left mid superficial femoral artery. The popliteal artery and tibial peroneal trunk demonstrate calcified atherosclerosis without significant stenosis. There is a three-vessel runoff at the ankle. CTA of the chest 09/29/21 showing enlarging aneurysm. Discussed case with radiology who felt no significant change in the ather
[2021-10-08] MEDS: POTASSIUM CHLORIDE 20 MEQ TABLET 40 MEQ PO (15:56)
[2021-10-08] MEDS: DEMECLOCYCLINE HCL 150 MG TABLET PO ×3 (15:56→21:30)
[2021-10-08] MEDS: ALPRAZolam (*CRX) 0.5 MG TABLET PO (16:58)
[2021-10-08] MEDS: FUROSEMIDE 20 MG TABLET PO (16:58)
[2021-10-08 19:23] LABS: Potassium 3.4 mmol/L (3.4-5.0)
[2021-10-08 20:00] VITALS: O2SAT 97
[2021-10-08 20:54] VITALS: BP 152/90; PULSE 64; RESP 22; TEMP 36; O2SAT 100
[2021-10-08] MEDS: MORPHINE SULFATE (*CRX) 2 MG/ML INJ IV PUSH (21:31)
[2021-10-09] MEDS: ALBUTEROL SULFATE (*SP) AEROSOL 1 PUFF 2 PUFF INHALATION ×2 (01:43→06:18)
[2021-10-09 04:12] VITALS: BP 154/67; PULSE 93; RESP 18; TEMP 36; O2SAT 100
[2021-10-09] MEDS: MAGNES & ALUM HYD/SIMETH/DIPHENHYD/LIDOCAINE 119 ML MOUTHWASH BY MOUTH ×3 (05:55→16:47)
--- NOTE | 2021-10-09 06:19 | PCRCNOTE ---
Debbie Garcia, RCT gave treatment. Unable to document due to computer issues.
[2021-10-09 07:55] LABS: Albumin Level 3.5 g/dL (3.5-5.1); Anion Gap 5 mmol/L (8-16); Blood Urea Nitrogen 17 mg/dL (7-17); Calcium 8.9 mg/dL (8.4-10.2); Carbon Dioxide 38 mmol/L (22-30); Chloride 94 mmol/L (98-107); Estimated CRCL calculation 51 ml/min; Estimated Glomerular Filt Rate > 60; Glucose 109 mg/dL (65-110); Magnesium 1.9 mg/dL (1.6-2.3); Phosphorus 2.4 mg/dL (2.5-4.5); Sodium 137 mmol/L (137-145)
[2021-10-09] MEDS: FLUTICASONE/UMECLIDIN/VILANTER 200-62.5-25 MCG ELLIPTA 1 PUFF INHALATION (08:54)
[2021-10-09 08:55] VITALS: O2SAT 95
[2021-10-09] MEDS: POTASSIUM CHLORIDE 20 MEQ TABLET PO (10:31)
[2021-10-09] MEDS: FUROSEMIDE 20 MG TABLET PO ×2 (10:31→16:47)
[2021-10-09] MEDS: PANTOPRAZOLE 40 MG TABLET PO (10:32)
[2021-10-09] MEDS: FLUTICASONE PROPIONATE 0.05% NA SPR 16 GM BTL (*BKC) 1 SPRAY NASAL (10:32)
[2021-10-09] MEDS: POTASSIUM CHLORIDE 20 MEQ TABLET.ER 40 MEQ PO ×2 (10:32→16:47)
[2021-10-09] MEDS: NICOTINE (*PBKC) 21 MG PATCH 1 PATCH TRANSDERM (10:32)
[2021-10-09] MEDS: SODIUM CHLORIDE 1 GM TABLET PO (10:33)
[2021-10-09] MEDS: busPIRone HCL 5 MG TABLET PO (10:33)
[2021-10-09] MEDS: CLOPIDOGREL BISULFATE 75 MG TABLET PO (10:33)
[2021-10-09] MEDS: DEMECLOCYCLINE HCL 150 MG TABLET PO ×2 (10:33→16:46)
[2021-10-09] MEDS: LOSARTAN POTASSIUM 100 MG TABLET PO (10:34)
[2021-10-09] MEDS: buPROPion HCL 75 MG TABLET 150 MG PO (10:34)
[2021-10-09] MEDS: ENOXAPARIN 40 MG/0.4 ML SYRINGE SUB-Q (10:34)
[2021-10-09] MEDS: POTASSIUM/PHOSPHORUS/SODIUM 1.5 GM PACKET 1 PACKET PO (10:38)
[2021-10-09] MEDS: MORPHINE SULFATE (*CRX) 2 MG/ML INJ IV PUSH (10:46)
--- NOTE | 2021-10-09 12:27 | PM.PNNEP ---
Progress Note: A&P Assessment and Plan (1) Acute renal failure: Qualifiers: Acute renal failure type: unspecified Qualified Code(s): N17.9 - Acute kidney failure, unspecified Code(s): N17.9 - Acute kidney failure, unspecified Status: Acute Assessment and Plan: resolved (2) Hyponatremia: Code(s): E87.1 - Hypo-osmolality and hyponatremia Status: Chronic Assessment and Plan: somewhat of a chronic issue/problem testing to date: cortisol low but on steroids TSH okay urine electrolytes prerenal SPEP/UPEP/serum + urine osmolality pending Most likely due to severe COPD. She is on morphine as well which could contribute. On demeclocycline, low dose diuretics and salt tablets as well as fluid restriction of 1800cc. her sodium judy to 137. According to Dr. Macario note, she is on Lasix 60 mg twice a day, potassium 40 mEq twice a day, spironolactone 50 mg twice a day and her sodium was ranging in the low 130s. I think would be reasonable to discharge her on this. I told her to drink if she is thirsty but not if she is not. She says that she has a tiny bottle of water at home which she sips on so she does not really drink all that much fluid at home anyway. I asked her to see Dr. Macario next week and have some blood work done so He knows how her sodium and potassium are. I discussed with Dr. Omer. I agree with him that the acute kidney injury and adjustments of Medicine in response there to is what messed up the electrolytes. He is calling the to make sure of what meds the patient was on before she came in. (3) Rhabdomyolysis: Code(s): M62.82 - Rhabdomyolysis Status: Acute Assessment and Plan: improved less level down to One hundred sixty-one (4) Chronic respiratory failure with hypoxia: Code(s): J96.11 - Chronic respiratory failure with hypoxia Status: Chronic Assessment and Plan: conitnue inhalers and steroids Pulmonary following continue supportive therapy (5) Benign essential hypertension: Code(s): I10 - Essential (primary) hypertension Status: Chronic Assessment and Plan: SBP 130-175 Anxiety may be playing a role here. patient is back on losartan. Subjective Date/time seen: 10/09/21 12:27 Interval history: Patient is feeling about the same. She is very excited about going home today. Exam Narrative: General: elderly anxious female in NAD Heart: normal S1 and S2; no rub or gallop Lungs: coarse with wheezes noted Abdomen: soft, nontender, nondistended, positive bowel sounds Extremities: 1+ edema Skin: No acute rash Objective Data Vital Signs Vital Signs: Vital Signs - 24 hr 10/08/21 14:00 10/08/21 20:00 10/08/21 20:54 Temperature 36.6 C 36.0 C L Pulse Rate 106 H 64 Respiratory Rate 24 H 22 H Blood Pressure 144/91 H 152/90 H Pulse Oximetry 98 97 100 10/09/21 04:12 10/09/21 08:55 Temperature 36.0 C L Pulse Rate 93 Respiratory Rate 18 Blood Pressure 154/67 H Pulse Oximetry 100 95 Intake/Output Intake/Output: Intake & Output 10/06/21 10/07/21 10/08/21 10/09/21 23:59 23:59 23:59 23:59 Intake Total 920 1322 1260 120 Output Total 2000 900 300 Balance 920 -258 360 -180 Meds/Results Medications: Active Medications Generic Name Dose Route Start Last Admin Trade Name Freq PRN Reason Stop Dose Admin Albuterol 2 puff 09/28/21 02:39 10/09/21 06:18 Albuterol Sulfate (*Sp) Aerosol 1 Puff INHALATION 2 puff Q2HRT PRN Administration Shortness Of Breath Alprazolam 0.5 mg 10/08/21 14:52 10/08/21 16:58 Alprazolam (*Crx) 0.5 Mg Tablet PO 0.5 mg TID PRN Administration Anxiety Benzonatate 200 mg 09/28/21 02:39 09/29/21 08:42 Benzonatate 100 Mg Capsule PO 200 mg TID PRN Administration Cough Bisacodyl 10 mg 10/01/21 09:27 Bisacodyl 10 Mg Suppository
[2021-10-09] MEDS: ALPRAZolam (*CRX) 0.5 MG TABLET PO ×2 (12:38→16:46)
--- NOTE | 2021-10-09 14:33 | PM.DS ---
DS: Admitting Diagnosis Discharge Date 10/09/21 Admitting Diagnosis Shortness of breath DS: Discharge Diagnosis Discharge Diagnosis (1) Hypokalemia: Code(s): E87.6 - Hypokalemia Status: Acute Assessment and Plan: Potassium became low during her hospital course and IV replacement ordered but she refused IV. Phosphorous was also low and this was replaced. Levels improved. (2) Acute renal failure: Qualifiers: Acute renal failure type: unspecified Qualified Code(s): N17.9 - Acute kidney failure, unspecified Code(s): N17.9 - Acute kidney failure, unspecified Status: Acute Assessment and Plan: Patient's renal function normal with BUN 9, Cr 0.7 and CrCl 65 on admission. She had a CTA 09/29. Her oliguric ANEL probably multifactorial from rhabdomyolysis, dehydration, contrast, and/or Lasix. Urine studies consistent with pre-renal and Ueos negative; complement normal; UA clear except for 3-5 RBC (from the rhabdo); Renal US and renal doppler normal. Nephrology consulted. Cozaar and Crestor held. BUN peaked at 82 and Cr at 2.9. Treated with IV fluids. ANEL resolved. IV fluids stopped and Lasix was ultimately resumed. UA was repeated close to discharge and was clear. Her Lasix home regiment was 60mg IV bid but last filled in March for 3 months so concern for noncompliance. Will use Lasix 40mg daily and potassium 20mEq and repeat renal panel in 1 week with further adjustment per primary care provider (3) Rhabdomyolysis: Code(s): M62.82 - Rhabdomyolysis Status: Acute Assessment and Plan: Patient with ANEL as above. TCK peaked at 2314. Related to Crestor? Related to ischemia? Rhabdo possibly playing a part in her ANEL. Treated with IV fluids with bicarb but stopped now. Mildly elevated LFTs felt related to the rhabdo. Complains of right hip pain and RLE weakness but CT brain showing no acute findings. Pain probably related to the rhabdo. TCK has dropped to 161. She worked with PT/OT and was walking to the door. Continue to hold Crestor. (4) Acute and chronic respiratory failure with hypoxia: Code(s): J96.21 - Acute and chronic respiratory failure with hypoxia Status: Acute Assessment and Plan: Patient with chronic respiratory failure on 2-3L at rest and up to 4L with exertion at home. She presents with SOB with ABG 7.44/50/88 on BiPAP. She had elevated carboxyhemo 3.9%. CTA chest negative for PE. She said she no longer smokes since March and has electric furnace and a working CO monitor. She was weaned to 2L now. Pulmonary followed along and appreciate their input. (5) Anxiety and depression: Code(s): F41.9 - Anxiety disorder, unspecified; F32.9 - Major depressive disorder, single episode, unspecified Status: Acute Assessment and Plan: Patient takes alprazolam and WB at home. Pulmonary recommended clonazepam and possibly changing off of WB. Her alprazolam fell off the DEC so we started clonazepam but patient had a serious panic attack. She was changed back to alprazolam. We continued wellbutrin. We did add Buspar which she seemed to tolerate. (6) AAA (abdominal aortic aneurysm): Qualifiers: Presence of rupture: without rupture Qualified Code(s): I71.4 - Abdominal aortic aneurysm, without rupture Code(s): I71.4 - Abdominal aortic aneurysm, without rupture Status: Acute Assessment and Plan: Noted to have AAA and PVD. CTA abd and LE Oct 2020 showing a 5.2 x 3.8 cm fusiform aneurysm of the distal descending thoracic aorta and a 3.3 x 2.8 cm fusiform infrarenal abdominal aortic aneurysm. She also has PAD with CTA showing: -- moderate stenosis of the bilateral external iliac arteries and mild stenosis of the bilateral internal iliac arteries. -- moderate stenosis in the Right superficial femoral artery. The popliteal artery and tibioperoneal trunk demonstrate calcified atherosclerosis without significant stenosis.
[2021-10-09 15:11] VITALS: BP 74/61; PULSE 92; RESP 18; TEMP 36.6; O2SAT 100
[2021-10-09 15:32] VITALS: BP 157/64
== END 2021-10-09 17:45 | disposition home health service (06) | DRG 191 ==
LOC: ANHED 20:16 → ANH3MEDSUR 23:41
PROVIDERS: Internal Medicine; Internal Medicine Nephrology; Internal Medicine Pulmonary Disease; Admitting Provider Internal Medicine; Emergency Provider Emergency Medicine; PCP Internal Medicine; Visit Provider Internal Medicine
DX: J44.1 Chronic obstructive pulmonary disease with (acute) exacerbation (principal); J96.11 Chronic respiratory failure with hypoxia; N17.9 Acute kidney failure, unspecified; I50.22 Chronic systolic (congestive) heart failure; E87.1 Hypo-osmolality and hyponatremia; I11.0 Hypertensive heart disease with heart failure; E87.6 Hypokalemia; G47.33 Obstructive sleep apnea (adult) (pediatric); D75.1 Secondary polycythemia; I25.10 Atherosclerotic heart disease of native coronary artery without angina pectoris; I48.91 Unspecified atrial fibrillation; I71.4 Abdominal aortic aneurysm, without rupture; G50.0 Trigeminal neuralgia; K21.9 Gastro-esophageal reflux disease without esophagitis; E78.2 Mixed hyperlipidemia; I73.9 Peripheral vascular disease, unspecified; F41.9 Anxiety disorder, unspecified; F32.9 Major depressive disorder, single episode, unspecified; Z99.81 Dependence on supplemental oxygen; Z79.82 Long term (current) use of aspirin; Z79.899 Other long term (current) drug therapy; Z85.118 Personal history of other malignant neoplasm of bronchus and lung; Z87.891 Personal history of nicotine dependence
CPT/HCPCS: 36415; 70450; 71045; 71275; 76775; 80053; 80069; 81001; 82533; 82550; 82570; 82607; 83605; 83735; 83880; 83930; 83935; 84100; 84132; 84295; 84300; 84443; 84484; 85025; 85027; 85999; 86140; 86160; 93005; 93923; 93970; 93976; 94618; 94640; 94762; 96365; 96372; 96375; 96376; 97110; 97116; 97162; 97165; 97530; 99285; A9270; G0378; J0131; J1650; J1940; J2270; J2405; J2930; J3480; J7030; J7050; J7060; J7070; J7512; Q9967

== ENCOUNTER 2021-11-03 17:47 | Outpatient (NON) | payer MEDICARE, SELFPAY ==
[2021-11-03 18:09] LABS: Hematocrit 38.5 % (37.0-47.0); Hemoglobin 12.4 g/dL (12.0-15.0); Mean Corpuscular HGB Conc 32.2 g/dl (32-36); Mean Corpuscular Hemoglobin 32.5 pg (26-34); Mean Corpuscular Volume 100.8 fl (80-100); Mean Platelet Volume 9.5 fl (7.4-10.4); Platelet Count Result 266 k/mm3 (150-375); Red Blood Count 3.82 M/mm3 (4.2-5.4); White Blood Count 7.1 K/mm3 (4.5-10.0)
[2021-11-03 18:19] LABS: Alanine Aminotransferase 13 U/L (4-35); Alkaline Phosphatase 105 U/L (38-126); Anion Gap 8 mmol/L (8-16); Aspartate Amino Transferase 28 U/L (14-36); Bilirubin,Total 1.4 mg/dL (0.2-1.3); Blood Urea Nitrogen 13 mg/dL (7-17); Calcium 9.4 mg/dL (8.4-10.2); Carbon Dioxide 35 mmol/L (22-30); Chloride 95 mmol/L (98-107); Cholesterol 196 mg/dL (0-200); Estimated Glomerular Filt Rate 54; Glucose 92 mg/dL (65-110); HDL Direct 56 mg/dL; Potassium 3.4 mmol/L (3.4-5.0); Sodium 138 mmol/L (137-145); Triglycerides 104 mg/dL (<150)
[2021-11-03 18:30] LABS: LDL Cholesterol Direct 109 mg/dL
[2021-11-03 18:50] LABS: Free T4 Free Thyroxine 1.53 ng/mL (0.78-2.19)
[2021-11-03 18:53] LABS: Hemoglobin A1C 5.1 % (<5.7)
== END 2021-11-03 17:48 | disposition home or self-care (01) ==
LOC: HOME HLTH 17:57
PROVIDERS: PCP Internal Medicine; Visit Provider Internal Medicine
DX: N17.9 Acute kidney failure, unspecified (principal); M62.82 Rhabdomyolysis; J96.21 Acute and chronic respiratory failure with hypoxia; J44.1 Chronic obstructive pulmonary disease with (acute) exacerbation; I71.4 Abdominal aortic aneurysm, without rupture; E87.1 Hypo-osmolality and hyponatremia; D75.1 Secondary polycythemia; I25.10 Atherosclerotic heart disease of native coronary artery without angina pectoris; I48.91 Unspecified atrial fibrillation; I10 Essential (primary) hypertension; I73.9 Peripheral vascular disease, unspecified; G47.33 Obstructive sleep apnea (adult) (pediatric); K21.9 Gastro-esophageal reflux disease without esophagitis; Z99.81 Dependence on supplemental oxygen; Z85.118 Personal history of other malignant neoplasm of bronchus and lung; Z87.891 Personal history of nicotine dependence; Z51.81 Encounter for therapeutic drug level monitoring; Z79.891 Long term (current) use of opiate analgesic; Z79.82 Long term (current) use of aspirin; Z79.02 Long term (current) use of antithrombotics/antiplatelets
CPT/HCPCS: 80053; 80061; 83036; 84439; 84443; 85027

== ENCOUNTER 2022-01-23 18:49 | Emergency (ER) | payer MEDICARE, SELFPAY ==
[2022-01-23] VITALS (11 sets, daily range): BP systolic 101–135; BP diastolic 55–116; PULSE 78–114; RESP 16–27; TEMP 36.4–36.5; O2SAT 99–100
--- NOTE | ~2022-01-23 | CT_ITS ---
EXAMINATION: CT abdomen pelvis w con EXAM DATE: 01/23/2022 20:16 INDICATION: Abdominal pain. TECHNIQUE: Spiral CT of the abdomen and pelvis was performed following intravenous injection of 100 m L Omnipaque 350. Axial, coronal and sagittal images of the abdomen and pelvis were reviewed. The do se-length product (DLP) for this examination was 1082.51 mGy-cm. The exposure was tailored according to patient size (auto mA exposure control), and iterative reconstruction (ASIR) was used as addition al dose reduction technique. Comparison is made to prior examination from 01/23/2021. FINDINGS: There is distal thoracic aortic aneurysm, measuring up to 6.0 cm transverse by 4.0 cm AP, a ppears unchanged compared to prior study. Again there is mild uniform dilation of the infrarenal abdo temitope aorta up to 3.4 cm. There is bilateral adrenal gland hyperplasia unchanged. Small right liver lobe cyst. Pancreas, spleen are unremarkable. Gallbladder is unremarkable. No biliary obstruction. Portal and splenic veins a re patent. Kidneys enhance symmetrically. There is no hydronephrosis. The uterus is not identifie d and has likely been surgically resected. The bladder is unremarkable. There is no retroperitoneal or pelvic lymphadenopathy. There is extensive scattered arterial sclerotic disease. Small umbilica l fat-containing hernia. The appendix is not positively visualized. There is no pericecal inflammatory change to suggest appe ndicitis. There is mild sigmoid colonic diverticulosis. There is no adjacent inflammatory change to suggest diverticulitis. The stomach and small bowel are unremarkable. There is expected amount of c olonic stool. No free intraperitoneal gas. The heart is normal in size. There are no pericardial or pleural effusions. The lung bases are unremarkable. There are no osteoblastic or osteolytic les ions identified. IMPRESSION: 1. No acute intra-abdominal findings. 2. Descending thoracic aortic 6 x 4 cm aneurysm. 3. Infrarenal 3.4 cm aneurysm. 4. Mild sigmoid diverticulosis. 5. Adrenal hyperplasia. 6. Small umbilical fat-containing hernia. Reviewed, dictated and finalized at location G.
[2022-01-23 19:09] LABS: Basophils Percent Auto 0.4 % (0.2-1.2); Eosinophils Absolute Auto 0.1 K/mm3 (0-0.3); Eosinophils Percent Auto 0.4 % (0-4.4); Hematocrit 34.5 % (37.0-47.0); Hemoglobin 10.3 g/dL (12.0-15.0); Immature Granulocyte Absolute 0.08 K/mm3 (0.00-0.031); Immature Granulocyte Percent A 0.7 % (0-0.5); Lymphocytes Absolute Auto 0.96 K/mm3 (0.9-3.2); Lymphocytes Percent Auto 8.4 % (18.3-44.2); Mean Corpuscular HGB Conc 29.9 g/dl (32-36); Mean Corpuscular Hemoglobin 27.8 pg (26-34); Mean Corpuscular Volume 93.2 fl (80-100); Mean Platelet Volume 9.3 fl (7.4-10.4); Monocytes Absolute Auto 1.1 K/mm3 (0.1-0.6); Monocytes Percent Auto 9.4 % (2.6-8.5); Neutrophils Absolute Auto 9.2 K/mm3 (1.3-6.7); Neutrophils Percent Auto 80.7 % (45.5-73.1); Platelet Count Result 330 k/mm3 (150-375); Red Cell Distribution Width 15.7 % (11.5-14.5); White Blood Count 11.4 K/mm3 (4.5-10.0)
--- NOTE | 2022-01-23 19:16 | PC.NURSE ---
Report received from МАРИЯ Remy. This nurse assumed care of patient at this time.
[2022-01-23] MEDS: LACTATED RINGERS 1,000 ML 250 ML IV CONT (19:17)
[2022-01-23 19:18] LABS: Alanine Aminotransferase 15 U/L (4-35); Albumin Level 3.8 g/dL (3.5-5.1); Alkaline Phosphatase 112 U/L (38-126); Anion Gap 6 mmol/L (8-16); Aspartate Amino Transferase 31 U/L (14-36); Bilirubin,Total 0.7 mg/dL (0.2-1.3); Blood Urea Nitrogen 25 mg/dL (7-17); Calcium 8.5 mg/dL (8.4-10.2); Carbon Dioxide 32 mmol/L (22-30); Chloride 99 mmol/L (98-107); Estimated CRCL calculation 42 ml/min; Estimated Glomerular Filt Rate 54; Glucose 111 mg/dL (65-110); Lipase 115 U/L (23-300); Potassium 3.6 mmol/L (3.4-5.0); Sodium 137 mmol/L (137-145)
[2022-01-23 19:25] LABS: INR 1.1; Prothrombin Time 13.3 Seconds (11.1-14.7)
[2022-01-23 19:26] LABS: Partial Thromboplastin Time 28.4 SECONDS (22.3-36.8)
--- NOTE | 2022-01-23 19:27 | ED.ABDPAIN ---
HPI - Abdominal Pain General Chief Complaint: Abdominal Pain Stated Complaint: abd pain Time Seen by Provider: 01/23/22 19:02 Source: patient Mode of arrival: ambulatory Limitations: no limitations History of Present Illness HPI narrative: Patient is a seven 6-year-old female complaining of left lower quadrant pain, sharp, was 8 out of 10 yesterday but now down to 2 out of 10, nonradiating, started yesterday. Patient also states that she had 2 bouts of nausea and vomiting, nonbilious nonbloody yesterday but none today. Patient denies any chest pain, shortness of breath, diarrhea, urinary symptoms, fever or chills. Related Data Home Medications Medication Instructions Recorded Confirmed aspirin [Adult Low Dose Aspirin] 81 mg PO DAILY 06/11/20 11/16/21 Trulance 3 mg PO DAILY PRN 06/05/21 11/16/21 albuterol sulfate 2.5 mg INHALATION Q6H PRN 06/05/21 11/16/21 guaifenesin 200 mg PO Q4H PRN 09/28/21 11/16/21 guaifenesin [Mucus Relief ER] 600 mg PO Q12HR PRN 09/28/21 11/16/21 Allergies Allergy/AdvReac Type Severity Reaction Status Date / Time atorvastatin Allergy Unknown leg cramps Verified 01/23/22 18:59 ezetimibe Allergy Unknown drowsiness Verified 01/23/22 18:59 fluticasone Allergy Unknown Asthma Verified 01/23/22 18:59 pravastatin Allergy Unknown leg cramps Verified 01/23/22 18:59 salmeterol [Advair Diskus] Allergy Unknown Asthma Verified 01/23/22 18:59 rosuvastatin AdvReac Unknown muscle Verified 01/23/22 18:59 cramps hydrocodone AdvReac Vomiting Verified 01/23/22 18:59 Review of Systems Review of Systems: All systems reviewed & are unremarkable except as noted in HPI and below Constitutional: Constitutional: Denies body ache(s), Denies chills, Denies excessive sweating, Denies fatigue, Denies fever(s), Denies headache(s), Denies lethargy, Denies malaise, Denies weakness and Denies weight loss Eyes: Eyes: Denies blurry vision, Denies change in vision and Denies loss of vision ENT: Denies dizziness, Denies ear discharge, Denies headache(s), Denies lip swelling, Denies epistaxis, Denies nasal congestion, Denies neck pain, Denies throat swelling and Denies tongue swelling Cardiovascular: Cardiovascular: Denies chest pain, Denies chest pain at rest, Denies chest pain with activity, Denies diaphoresis, Denies rapid heart rate, Denies edema, Denies irregular heart rhythm, Denies lightheadedness, Denies palpitations, Denies dyspnea and Denies dyspnea on exertion Respiratory: Respiratory: Denies chest congestion, Denies cough, Denies hemoptysis, Denies dyspnea and Denies dyspnea on exertion Gastrointestinal: Gastrointestinal: Denies melena, Denies hematochezia, Denies diarrhea, Denies nausea, Denies vomiting and Denies hematemesis Musculoskeletal: Musculoskeletal: Denies abnormal gait, Denies deformity, Denies joint swelling, Denies limited range of motion, Denies neck pain and Denies numbness Neurologic: Denies Abnormal speech present, Denies abnormal gait, Denies confusion, Denies dizziness, Denies headache(s), Denies focal weakness, Denies loss of vision, Denies numbness, Denies Other visual disturbances, Denies Sensory deficit (Neuro) and Denies weakness Psychiatric: Psychiatric: Denies confusion, Denies depression, Denies auditory hallucinations, Denies homicidal ideation and Denies suicidal ideation Endocrine: Endocrine: Denies cold intolerance, Denies excessive sweating, Denies fatigue, Denies heat intolerance and Denies palpitations Hematologic/Lymphatic: Hematologic/Lymphatic: Denies easy bleeding and Denies easy bruising Allergic/Immunologic: Allergic/Immunologic: Denies lip swelling, Denies throat swelling and Denies tongue swelling [facility] Past Medical History Medical History AAA (abdominal aortic aneurysm) Abdominal pain ASHD (arteriosclerotic heart disease) Benign essential hypertension BMI 27.0-27.9,adult BMI 28.0-28.9,adult BMI 29.0-29.9,adult CAD (coronary
[2022-01-23 19:28] LABS: Platelet Estimate Adequate (Adequate)
[2022-01-23 19:29] LABS: Anisocytosis 1+ (NORMAL); Hypochromasia 1+ (NORMAL); Stomatocytes 1+ (NORMAL)
[2022-01-23 19:33] LABS: Lactic Acid Reflex 1.2 mmol/L (0.7-2.1)
[2022-01-23] MEDS: LORazepam (*CRX) 1 MG TABLET PO (19:34)
[2022-01-23 19:51] LABS: Add Urine Microscopic? YES; Appearance Urine Cloudy (Clear); Bilirubin Urine Negative (Negative); Blood Urine Negative (Negative); Color Urine Amber (Yellow); Glucose Urine UA Negative (Negative); Ketones Urine Negative (Negative); Leukocyte Esterase Ur Negative LEU/UL (Negative); Mucus Urine Moderate /lpf; Nitrate Urine Negative (Negative); Protein Urine Negative (Negative); RBC Urine 0-2 /hpf (0-2); Specific Grav Ur 1.025 (1.001-1.035); Squamous Epithelial Cell Urine Few /hpf (Few); WBC Urine 0-3 /hpf
--- NOTE | 2022-01-23 19:53 | PC.NURSE ---
Patient taken to CT via stretcher at this time.
== END 2022-01-23 21:14 | disposition home or self-care (01) ==
PROVIDERS: Emergency Provider Emergency Medicine; PCP Internal Medicine
DX: R10.32 Left lower quadrant pain (principal); I25.10 Atherosclerotic heart disease of native coronary artery without angina pectoris; J43.9 Emphysema, unspecified; K21.9 Gastro-esophageal reflux disease without esophagitis; Z85.118 Personal history of other malignant neoplasm of bronchus and lung; K58.9 Irritable bowel syndrome, unspecified; G47.33 Obstructive sleep apnea (adult) (pediatric); I27.20 Pulmonary hypertension, unspecified; I50.20 Unspecified systolic (congestive) heart failure; I11.0 Hypertensive heart disease with heart failure; E53.8 Deficiency of other specified B group vitamins; E55.9 Vitamin D deficiency, unspecified; Z90.2 Acquired absence of lung [part of]; Z95.5 Presence of coronary angioplasty implant and graft; Z79.82 Long term (current) use of aspirin; Z87.891 Personal history of nicotine dependence; I71.2 Thoracic aortic aneurysm, without rupture; I71.4 Abdominal aortic aneurysm, without rupture; K57.30 Diverticulosis of large intestine without perforation or abscess without bleeding; E27.8 Other specified disorders of adrenal gland; K42.9 Umbilical hernia without obstruction or gangrene
CPT/HCPCS: 36415; 74177; 80053; 81001; 83605; 83690; 85025; 85610; 85730; 96360; 96361; 99284; A9270; J7120; Q9967

== ENCOUNTER 2022-04-30 07:36 | Inpatient (IN) | payer MEDICARE, SELFPAY ==
[2022-04-30] VITALS (21 sets, daily range): BP systolic 109–157; BP diastolic 43–93; PULSE 75–100; RESP 17–32; TEMP 36.1–36.9; O2SAT 94–100; BMI 34.3; BMI 28.5
--- NOTE | ~2022-04-30 | XR_ITS ---
XR chest 2V 04/30/2022 09:43 Indication: Shortness of breath Procedure: 2 view chest Comparison: Comparison to multiple prior studies sequentially, with oldest reviewed study dated 02/2021. Findings: Borderline heart size. There is a hiatal hernia. There is chronic right basilar scarring wi th blunting right lateral costophrenic recess which may represent pleural thickening or small effusio n. There are surgical changes consistent with partial right pneumonectomy. No acute focal pneumonia, edema or effusion. No acute osseous abnormality. Impression: 1: No acute cardiopulmonary disease. Reviewed, dictated and finalized at location A. Impression: 1: No acute cardiopulmonary disease.
--- NOTE | 2022-04-30 07:42 | ED.SOB ---
HPI - SOB/Dyspnea General Chief Complaint: Shortness of Breath/Dyspnea Stated Complaint: labored breathing Time Seen by Provider: 04/30/22 07:42 Source: patient History of Present Illness HPI Narrative: 76 years old white female came to the ED from home by ambulance with her complaining of increased shortness of breath over the last 24 hours. Similar to her previous history of COPD exacerbation and on exam. Patient denies any fever, chills, nausea, vomiting, chest pain, leg pain. Last nebulizer treatment 2 PM yesterday. Patient denies increased the frequency and amount of coughing. Related Data Home Medications Medication Instructions Recorded Confirmed aspirin 81 mg tablet,delayed 81 mg PO DAILY 06/11/20 03/17/22 release (Adult Low Dose Aspirin) albuterol sulfate 2.5 mg/3 mL 2.5 mg inhalation Q6H PRN 06/05/21 03/17/22 (0.083 %) solution for nebulization Shortness Of Breath Or Wheezing plecanatide 3 mg tablet (Trulance) 3 mg PO DAILY PRN Constipation 06/05/21 03/17/22 guaifenesin 600 mg tablet, 600 mg PO Q12HR PRN Allergy 09/28/21 03/17/22 extended release 12 hr (Mucus Symptoms Relief ER) Allergies Allergy/AdvReac Type Severity Reaction Status Date / Time atorvastatin Allergy Unknown leg cramps Verified 04/30/22 08:30 ezetimibe Allergy Unknown drowsiness Verified 04/30/22 08:30 fluticasone Allergy Unknown Asthma Verified 04/30/22 08:30 pravastatin Allergy Unknown leg cramps Verified 04/30/22 08:30 salmeterol [Advair Diskus] Allergy Unknown Asthma Verified 04/30/22 08:30 rosuvastatin AdvReac Unknown muscle Verified 04/30/22 08:30 cramps hydrocodone AdvReac Vomiting Verified 04/30/22 08:30 melatonin AdvReac Unknown Verified 04/30/22 08:30 Review of Systems Review of Systems: All systems reviewed & are unremarkable except as noted in HPI and below PMFSH Past Medical History Medical History AAA (abdominal aortic aneurysm) Abdominal pain ASHD (arteriosclerotic heart disease) Benign essential hypertension BMI 27.0-27.9,adult BMI 28.0-28.9,adult BMI 29.0-29.9,adult CAD (coronary artery disease) Cataract Cervical radiculopathy Cervicalgia Chronic depression Constipation COPD (chronic obstructive pulmonary disease) emphysema COPD (chronic obstructive pulmonary disease) Depression Descending thoracic aortic aneurysm Edema Elevated glucose Encounter for routine adult health examination with abnormal findings Encounter to establish care Family history of diabetes mellitus Fatigue Follow up GERD (gastroesophageal reflux disease) History of gastric ulcer History of lung cancer History of tobacco abuse Hospital discharge follow-up Hypersomnia Hypertension Hypoxia IBS (irritable bowel syndrome) Left shoulder pain rn long term care current use of therapeutic drug Lung cancer Mixed hyperlipidemia Nausea Need for influenza vaccination Obstructive sleep apnea 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 Personal history of nicotine dependence Polycythemia Pulmonary hypertension PVD (peripheral vascular disease) SOB (shortness of breath) Systolic CHF Tobacco abuse Vitamin B12 deficiency Vitamin D deficiency Weakness Surgical History Surgical History History of appendectomy History of hysterectomy History of lobectomy of lung Stented coronary artery Social History Social History Smoking packs per day: 0.5 Smoking cigarettes per day: 10.0 Years smoked: 55 Smoking pack-years: 27.50 Smoking status: Former smoker Tobacco type: cigarettes Second hand tobacco smoke exposure: Yes Additional smoking assessment comments: She states she quit 1 month ago Alcohol intake: former Drinks per week: 1 Substance use: never Gender identity (if verbalized by the patient): Female Sexual Orientation (if Verbalized by the Patient): Straight or Heterosexual
--- NOTE | 2022-04-30 07:44 | ECG_ITS ---
Measurements Intervals [place] Rate: 87 P: 83 SD: 148 QRS: 12 QRSD: 126 T: 131 QT: 399 QTc: 483 Interpretive Statements SINUS RHYTHM VENTRICULAR TRIGEMINY LEFT BUNDLE BRANCH BLOCK BASELINE ARTIFACT- I, II, III, AVR, AVL, V1-V3 ABNORMAL ECG Electronically Signed On 04-30-2022 8:10:21 CDT by Todd Sam D.O.
[2022-04-30] MEDS: IPRATROPIUM BR 0.02% INH SOLN 0.5 MG/2.5 ML VIAL INHALATION (08:08)
[2022-04-30] MEDS: ALBUTEROL SULFATE NEB 2.5 MG/3 ML INH 5 MG INHALATION ×3 (08:08→08:42)
[2022-04-30 08:31] LABS: Basophils Absolute Auto 0.1 K/mm3 (0.0-0.1); Basophils Percent Auto 0.9 % (0.2-1.2); Eosinophils Absolute Auto 0.1 K/mm3 (0-0.3); Eosinophils Percent Auto 1.2 % (0-4.4); Hematocrit 28.1 % (37.0-47.0); Hemoglobin 7.6 g/dL (12.0-15.0); Immature Granulocyte Absolute 0.03 K/mm3 (0.00-0.031); Immature Granulocyte Percent A 0.5 % (0-0.5); Lymphocytes Percent Auto 12.3 % (18.3-44.2); Mean Corpuscular Hemoglobin 19.6 pg (26-34); Mean Corpuscular Volume 72.4 fl (80-100); Mean Platelet Volume 9.3 fl (7.4-10.4); Monocytes Absolute Auto 0.6 K/mm3 (0.1-0.6); Neutrophils Percent Auto 76.1 % (45.5-73.1); Platelet Count Result 291 k/mm3 (150-375); Red Blood Count 3.88 M/mm3 (4.2-5.4); Red Cell Distribution Width 18.2 % (11.5-14.5); White Blood Count 6.5 K/mm3 (4.5-10.0)
[2022-04-30 08:42] LABS: INR 1.1; Partial Thromboplastin Time 30.8 SECONDS (22.3-36.8); Prothrombin Time 13.7 Seconds (11.1-14.7)
[2022-04-30] MEDS: predniSONE 20 MG TABLET 60 MG PO (08:42)
[2022-04-30 08:50] LABS: Platelet Estimate Adequate (Adequate)
[2022-04-30 08:51] LABS: Hypochromasia 2+ (NORMAL); Ovalocytes 1+ (NORMAL)
[2022-04-30 09:42] LABS: Alanine Aminotransferase 11 U/L (6-35); Albumin Level 3.4 g/dL (3.5-5.1); Alkaline Phosphatase 68 U/L (38-126); Anion Gap 2 mmol/L (8-16); Aspartate Amino Transferase 23 U/L (14-36); Bilirubin,Total 0.5 mg/dL (0.2-1.3); Blood Urea Nitrogen 12 mg/dL (7-17); Calcium 8.2 mg/dL (8.4-10.2); Carbon Dioxide 32 mmol/L (22-30); Chloride 101 mmol/L (98-107); Estimated Glomerular Filt Rate > 60; Glucose 114 mg/dL (65-110); Potassium 4.1 mmol/L (3.4-5.0); Sodium 135 mmol/L (137-145)
[2022-04-30 09:54] LABS: NT Pro B Type Natriuretic Pept 1560 pg/mL (5-100); Troponin I < 0.012 ng/mL (0.000-0.034)
[2022-04-30] MEDS: PANTOPRAZOLE SODIUM IV 40 MG VIAL IV PUSH ×2 (10:54→22:19)
--- NOTE | 2022-04-30 12:25 | PC.NURSE ---
Pt to GI lab
[2022-04-30 12:26] LABS: Hematocrit 28.9 % (37.0-47.0); Hemoglobin 7.7 g/dL (12.0-15.0)
--- NOTE | 2022-04-30 12:47 | PC.NURSE ---
3 [facility] STATES THEY WILL HAVE NURSE CALL BACK STEVEN
--- NOTE | 2022-04-30 12:52 | PC.NURSE ---
[facility] WAS MADE AWARE THAT THE PT IS IN GI LAB AND IF THEY WANT REPORT FROM US THEY CAN CALL BACK. OTHERWISE THE PT WILL BE COMING DIRECTLY FROM GI LAB AND CAN GET REPORT FROM THEM.
[2022-04-30] MEDS: LACTATED RINGERS 1,000 ML 150 ML IV CONT (12:55)
--- NOTE | 2022-04-30 13:07 | WPDGICN ---
Assessment and Plan Assessment and plan (1) GI bleed: Code(s): K92.2 - Gastrointestinal hemorrhage, unspecified Status: Acute Assessment and Plan: drop her blood count suggest that she may have recurrent ulcers with gradual bleeding. She has not seen blood in her stools. She states her stools have been dark from time to time. (2) COPD (chronic obstructive pulmonary disease): Qualifiers: COPD type: unspecified COPD Qualified Code(s): J44.9 - Chronic obstructive pulmonary disease, unspecified Code(s): J44.9 - Chronic obstructive pulmonary disease, unspecified Status: Acute Assessment and Plan: This is a chronic problem for which she uses oxygen. She denies having been on steroids recently. She is on multiple inhalers (3) Anemia: Code(s): D64.9 - Anemia, unspecified Status: Acute Assessment and Plan: Her blood counts have gradually dropped since October of this year. I suspect that her anemia may be multifactorial but given her history of ulcers I think that it is imperative that we rule out recurrent ulcers. It has also been several years, about 7 since her last colonoscopy and we may need to consider that as well. (4) Peptic ulcer disease: Code(s): K27.9 - Peptic ulcer, site unspecified, unspecified as acute or chronic, without hemorrhage or perforation Status: Acute Assessment and Plan: multiple gastric ulcers were found 2 years ago. Given that history will schedule her for EGD today suspected recurrence of ulcers tripping to her anemia GI Consult Note Consult date/time: 04/30/22 13:07 HPI: Hetal Stone is a 76 year old female Who presented to the emergency room today with shortness of breath. She does have chronic obstructive lung disease and assumed that this was an exacerbation. She was found however to be anemic with a hemoglobin of 7.7. It was 12 in October of this year. She has not seen any blood in her stools. Her stools are sometimes dark. She states she has had a great deal of difficulty with constipation. This of course is a chronic problem she often needs to strain to have a bowel movement then might pass some mucus. She however does not see any bright red blood in her stool . Two years ago she had endoscopy elsewhere also found to have multiple gastric ulcers. EGD done about 1 year ago revealed mild localized gastritis. Assess for H pylori was negative at that time. She does take 1 aspirin tablet daily. Otherwise she does not use anti-inflammatory medications. She has chronic abdominal pain. She states that begins in the lower abdomen it comes up in a C-shaped towards her chest and into the left shoulder. At times she feels that in her neck or substernally. Who she has had no weight loss. She does have excessive bruising which is a chronic problem particularly a on her upper extremities. Review of Systems Review of Systems: All systems reviewed & are unremarkable except as noted in HPI and below [facility] Past Medical History Medical History AAA (abdominal aortic aneurysm) Abdominal pain ASHD (arteriosclerotic heart disease) Benign essential hypertension BMI 27.0-27.9,adult BMI 28.0-28.9,adult BMI 29.0-29.9,adult CAD (coronary artery disease) Cataract Cervical radiculopathy Cervicalgia Chronic depression Constipation COPD (chronic obstructive pulmonary disease) emphysema COPD (chronic obstructive pulmonary disease) Depression Descending thoracic aortic aneurysm Edema Elevated glucose Encounter for routine adult health examination with abnormal findings Encounter to establish care Family history of diabetes mellitus Fatigue Follow up GERD (gastroesophageal reflux disease) History of gastric ulcer History of lung cancer History of tobacco abuse Hospital discharge follow-up Hypersomnia Hypertension Hypoxia IBS (irritable bowel syndrome) Le
--- NOTE | 2022-04-30 13:12 | WPDANESEPPF ---
Anes - Initial Pre Proc Eval Procedure: Operation Date: 04/30/22 15:00 Proposed Procedures p Esophagogastroduodenoscopy - Bill Nance MD Date/Time: 04/30/22 13:12 Surgeon: Neil Omer MD Pre Op Diagnosis: GI Bleed/Anemia/Dyspnea Patient Data Age: 76 Gender: F Height: 1.6 m Weight: 75 kg Last Vital Signs Temp 97.5 F L 04/30/22 12:49 Pulse 89 04/30/22 12:49 Resp 20 04/30/22 12:49 BP 140/66 04/30/22 12:49 Pulse Ox 99 04/30/22 12:49 O2 Del Method Room Air 04/30/22 12:49 O2 Flow Rate 2 04/30/22 08:00 Allergies Allergy/AdvReac Type Severity Reaction Status Date / Time atorvastatin Allergy Unknown leg cramps Verified 04/30/22 12:42 ezetimibe Allergy Unknown drowsiness Verified 04/30/22 12:42 fluticasone Allergy Unknown Asthma Verified 04/30/22 12:42 pravastatin Allergy Unknown leg cramps Verified 04/30/22 12:42 salmeterol [Advair Diskus] Allergy Unknown Asthma Verified 04/30/22 12:42 rosuvastatin AdvReac Unknown muscle Verified 04/30/22 12:42 cramps hydrocodone AdvReac Vomiting Verified 04/30/22 12:42 melatonin AdvReac Unknown Verified 04/30/22 12:42 Home Medications Medication Instructions Recorded Confirmed Type aspirin 81 mg tablet,delayed 81 mg PO DAILY 06/11/20 03/17/22 History release (Adult Low Dose Aspirin) rosuvastatin 40 mg tablet 40 mg PO DAILY #90 tabs 04/20/21 03/17/22 Rx bupropion HCl 75 mg tablet 150 mg PO BID #120 tabs 05/13/21 03/17/22 Rx albuterol sulfate 2.5 mg/3 mL 2.5 mg inhalation Q6H PRN 06/05/21 03/17/22 History (0.083 %) solution for nebulization Shortness Of Breath Or Wheezing plecanatide 3 mg tablet (Trulance) 3 mg PO DAILY PRN Constipation 06/05/21 03/17/22 History nicotine 21 mg/24 hr daily 1 patch transdermal DAILY #28 ea 06/08/21 03/17/22 Rx transdermal patch (Nicoderm CQ) guaifenesin 600 mg tablet, 600 mg PO Q12HR PRN Allergy 09/28/21 03/17/22 History extended release 12 hr (Mucus Symptoms Relief ER) fluticasone propionate 50 1 spray intranasal Q12HR #1 g 10/09/21 03/17/22 Rx mcg/actuation nasal spray,suspension furosemide 40 mg tablet 40 mg PO DAILY 0 days #270 tabs 10/09/21 03/17/22 Rx buspirone 10 mg tablet 10 mg PO TID #90 tabs 12/24/21 03/17/22 Rx tramadol 50 mg tablet 50 mg PO Q6H PRN pain #30 tabs 01/04/22 03/17/22 Rx fluticasone fur. 200 mcg-umeclid See Rx Instructions .Route 01/25/22 03/17/22 Rx 62.5 mcg-vilant 25 mcg .COMPLEX #60 ea inhalat.powder (Trelegy Ellipta) promethazine 25 mg tablet See Rx Instructions .Route 02/01/22 03/17/22 Rx .COMPLEX #30 tabs losartan 100 mg tablet See Rx Instructions .Route 02/08/22 03/17/22 Rx .COMPLEX #90 tabs pantoprazole 40 mg tablet,delayed 40 mg PO BID #180 tabs 02/18/22 03/17/22 Rx release alprazolam 0.5 mg tablet 0.5 mg PO TID #90 tabs 03/08/22 03/17/22 Rx potassium chloride 20 mEq See Rx Instructions .Route 03/22/22 Rx tablet,extended release .COMPLEX #30 tabs benzonatate 200 mg capsule See Rx Instructions .Route 04/14/22 Rx .COMPLEX #45 caps cyclobenzaprine 5 mg tablet 5 mg PO TID PRN muscle spasm #30 04/19/22 Rx tabs roflumilast 250 mcg tablet See Rx Instructions .Route 04/19/22 Rx (Daliresp) .COMPLEX #30 tabs albuterol sulfate 90 mcg/actuation See Rx Instructions .Route 04/28/22 Rx aerosol inhaler .COMPLEX #18 ea clopidogrel 75 mg tablet See Rx Instructions .Route 04/29/22 04/30/22 Rx .COMPLEX #30 tabs Laboratory Tests 04/30/22 04/30/22 04/30/22 07:59 07:59 07:59 WBC 6.5 K/mm3 K/mm3 (4.5-10.0) RBC 3.88 M/mm3 L M/mm3 (4.2-5.4) Hgb 7.6 g/dL L g/dL (12.0-15.0) Hct 28.1 % L % (37.0-47.0) MCV 72.4 fl L fl (80-100) MCH 19.6 pg L pg (26-34) MCHC 27.0 g/dl L g/dl (32-36) RDW 18.2 % H % (11.5-14.5) Plt Count 291 k/mm3 k/mm3 (150-375) MPV 9.3 fl fl (7.4-10.4) Immature Gran % (Auto) 0.5 % %
--- NOTE | 2022-04-30 15:21 | SUR.PREOP ---
Pt assisted to the bathroom via wheelchair
--- NOTE | 2022-04-30 15:46 | PM.IMHP ---
H&P: HPI History of Present Illness Date/Time: 04/30/22 15:46 Chief Complaint: Shortness of breath Narrative: 76yo female with hx of COPD, CAD, chronic respiratory failure and lung cancer who presents to the emergency room with complaints of shortness of breath. Patient has been having increasing shortness of breath over the past 2 days. She wears 2L at rest and 3L with exertion and at sleep without change. She does not wear NIV. She uses the Albuterol neb treatments once daily and frequent use of albuerol inhaler 2puffs when she exerts herself (even going to the bedside commode). She has had occasional dry cough. Chest pain. No nausea or vomiting but has had upper abdominal pain. Diarrhea or constipation issues past few days but does have symptoms off and on related to her irritable bowel syndrome. No melena or hematochezia. No dysuria hematuria. She stopped her diuretic therapy about a month ago but did start this back 2 days ago because of the increasing shortness of breath. She has increasing weakness. No fever or chills. She quit smoking 1 year ago. No chest pain. Her last colonoscopy listed here was May 2020 which showed descending colon polyp and rectal polyp. EGD at that time showed duodenitis, gastritis and chronic gastric ulcer. Patient was hospitalized here in May 2021 for abdominal pain with EGD at that time showing nonerosive reflux disease and mild antral gastritis. Due to the increasing shortness of breath, patient presented to the emergency room for evaluation. In the emergency room, patient was hemodynamically stable. White count and platelet count were normal. Hemoglobin was 7.6 with microcytosis. She had a normal hemoglobin up until December of this year when she had a hemoglobin of 10.3. BNP was 1560. Renal function was normal. Troponin was negative. Chest x-ray was clear. EKG showed normal sinus rhythm with left bundle branch block and trigeminy. Left bundle branch block is chronic. She was given nebulizer treatments and a dose of prednisone. She was started on Protonix. She was admitted for further care. GI was consulted and patient taken down for EGD. Review of Systems Review of Systems: All systems reviewed & are unremarkable except as noted in HPI and below PMFSH Past Medical History Medical History AAA (abdominal aortic aneurysm) CAD (coronary artery disease) Cataract Cervical radiculopathy Cervicalgia Constipation COPD (chronic obstructive pulmonary disease) emphysema Depression Descending thoracic aortic aneurysm Encounter for routine adult health examination with abnormal findings GERD (gastroesophageal reflux disease) History of gastric ulcer History of lung cancer History of tobacco abuse Hypersomnia Hypertension Hypoxia IBS (irritable bowel syndrome) 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 Lung cancer Rt lobectomy but no chemo or XRT Mixed hyperlipidemia Obstructive sleep apnea On skilled nursing drug therapy Polycythemia Pulmonary hypertension PVD (peripheral vascular disease) Systolic CHF Tobacco abuse Vitamin B12 deficiency Vitamin D deficiency Weakness Surgical History Surgical History History of appendectomy History of hysterectomy History of lobectomy of lung Stented coronary artery stent x2 to RCA and LAD 2-3 years ago Family History Family History (Updated 04/30/22 @ 18:22 by Andres Omer MD) Father Heart disease Sibling Heart disease Social History Social History (Updated 04/30/22 @ 18:24 by Andres Omer MD) Social History: Smoked tobacco 1ppd x 55 yrs but quit 1 year ago. Lives at home with her with family that live near by who are helpful. Drinks 1-2 drinks per day. Denies drug use. Full code. She nominates Her to be the 1 to make medical decisions for her if she is unable. Years smoked
[2022-04-30 17:58] LABS: Hematocrit 29.3 % (37.0-47.0); Hemoglobin 7.8 g/dL (12.0-15.0)
--- NOTE | 2022-04-30 18:35 | ADMGEN ---
This patient, Hetal Stone, was admitted to Medical Room 343-01. Patient/family oriented to hospital policies and general routines including ID bracelet, bed and alarms, visiting hours, pain management, procedures, bathroom and other care routines, personal items, smoking policy, room service/diet, and visiting hours. Information on how to activate the Rapid Response Team has been discussed. Patient/Family are encouraged to report perceived risks to care and to ask questions if they do not understand what they are told or what they should do.
[2022-04-30 18:36] LABS: Iron 25 ug/dL (37-170)
[2022-04-30 18:46] LABS: Percent Iron Saturation 5 % (20-50)
[2022-04-30 19:13] LABS: Ferritin 8.83 ng/mL (11.1-264)
[2022-04-30 19:16] LABS: Folic Acid 5.5 ng/mL (2.76->20)
[2022-04-30] MEDS: traMADol HCL (*CRX) 50 MG TABLET PO (19:37)
[2022-04-30] MEDS: SODIUM CHLORIDE 0.9% IV 1,000 ML 75 ML IV CONT (19:38)
[2022-04-30] MEDS: ALPRAZolam (*CRX) 0.5 MG TABLET PO (19:40)
[2022-04-30] MEDS: busPIRone HCL 10 MG TABLET PO (22:18)
[2022-04-30] MEDS: FUROSEMIDE INJ 40 MG/4 ML VIAL 20 MG IV PUSH (22:20)
[2022-04-30] MEDS: buPROPion HCL 75 MG TABLET 150 MG PO (22:24)
[2022-04-30 23:53] LABS: Hematocrit 28.5 % (37.0-47.0); Hemoglobin 7.6 g/dL (12.0-15.0)
[2022-05-01 00:52] VITALS: BP 131/59; PULSE 88; RESP 20; TEMP 37.1; O2SAT 100
[2022-05-01 04:54] VITALS: BP 151/92; PULSE 110; RESP 22; TEMP 37.1; O2SAT 94
[2022-05-01 05:36] LABS: Basophils Percent Auto 0.3 % (0.2-1.2); Hematocrit 29.9 % (37.0-47.0); Hemoglobin 7.9 g/dL (12.0-15.0); Immature Granulocyte Absolute 0.04 K/mm3 (0.00-0.031); Immature Granulocyte Percent A 0.6 % (0-0.5); Lymphocytes Absolute Auto 0.95 K/mm3 (0.9-3.2); Mean Corpuscular HGB Conc 26.4 g/dl (32-36); Mean Corpuscular Hemoglobin 19.2 pg (26-34); Mean Corpuscular Volume 72.7 fl (80-100); Mean Platelet Volume 9.3 fl (7.4-10.4); Monocytes Absolute Auto 0.9 K/mm3 (0.1-0.6); Monocytes Percent Auto 13.7 % (2.6-8.5); Neutrophils Absolute Auto 4.8 K/mm3 (1.3-6.7); Neutrophils Percent Auto 71.4 % (45.5-73.1); Platelet Count Result 333 k/mm3 (150-375); Red Blood Count 4.11 M/mm3 (4.2-5.4); White Blood Count 6.8 K/mm3 (4.5-10.0)
[2022-05-01 05:38] LABS: Anion Gap 6 mmol/L (8-16); Blood Urea Nitrogen 15 mg/dL (7-17); Calcium 8.6 mg/dL (8.4-10.2); Carbon Dioxide 31 mmol/L (22-30); Chloride 99 mmol/L (98-107); Estimated CRCL calculation 45 ml/min; Estimated Glomerular Filt Rate > 60; Glucose 93 mg/dL (65-110); Magnesium 2.2 mg/dL (1.6-2.3); Phosphorus 4.6 mg/dL (2.5-4.5); Potassium 4.1 mmol/L (3.4-5.0); Sodium 136 mmol/L (137-145)
[2022-05-01 05:52] LABS: Anisocytosis 1+ (NORMAL); Hypochromasia 3+ (NORMAL); Microcytosis 1+ (NORMAL); Platelet Estimate Adequate (Adequate)
[2022-05-01 08:00] VITALS: O2SAT 99
--- NOTE | 2022-05-01 08:02 | WPDANESPN ---
Anes - Prog Note Post-Op Date/Time: 05/01/22 08:02 Vital Signs: Last Vital Signs Temp 37.1 C 05/01/22 04:54 Pulse 110 H 05/01/22 04:54 Resp 22 H 05/01/22 04:54 BP 151/92 H 05/01/22 04:54 Pulse Ox 94 05/01/22 04:54 O2 Del Method Nasal Cannula 04/30/22 20:00 O2 Flow Rate 2 04/30/22 20:00 Pain Score (VAS): 12/10 I/O: Intake & Output 04/30/22 05/01/22 05/01/22 23:59 07:59 15:59 Intake Total 700 100 Output Total 900 Balance 700 -800 Laboratory Tests 05/01/22 05:10 05/01/22 05:10 04/30/22 04/30/22 04/30/22 07:59 07:59 07:59 WBC 6.5 RBC 3.88 L Hgb 7.6 L Hct 28.1 L MCV 72.4 L MCH 19.6 L MCHC 27.0 L RDW 18.2 H Plt Count 291 MPV 9.3 Immature Gran % (Auto) 0.5 Neut % (Auto) 76.1 H Lymph % (Auto) 12.3 L [place] % (Auto) 9.0 H Eos % (Auto) 1.2 Baso % (Auto) 0.9 Lymph # (Auto) 0.80 L [place] # (Auto) 0.6 Eos # (Auto) 0.1 Baso # (Auto) 0.1 Abs Immat Gran (auto) 0.03 Absolute Neuts (auto) 5.0 Absolute Nucleated RBC 0.0 Nucleated RBC % 0.0 Platelet Estimate Adequate Hypochromasia 2+ Anisocytosis Microcytosis Ovalocytes 1+ PT 13.7 INR 1.1 APTT 30.8 Sodium 135 L Potassium 4.1 Chloride 101 Carbon Dioxide 32 H Anion Gap 2 L BUN 12 D Creatinine 0.90 Estim Creat Clear Calc Not Reportable Estimated GFR > 60 Glucose 114 H Calcium 8.2 L Phosphorus Magnesium Iron TIBC % Saturation Ferritin Total Bilirubin 0.5 AST 23 ALT 11 Alkaline Phosphatase 68 Troponin I < 0.012 NT-Pro-B Natriuret Pep 1560 H Total Protein 6.0 L Albumin 3.4 L Vitamin B12 Folate 04/30/22 04/30/22 04/30/22 12:20 17:43 17:43 WBC RBC Hgb 7.7 L 7.8 L Hct 28.9 L 29.3 L MCV MCH MCHC RDW Plt Count MPV Immature Gran % (Auto) Neut % (Auto) Lymph % (Auto) [place] % (Auto) Eos % (Auto) Baso % (Auto) Lymph # (Auto) [place] # (Auto) Eos # (Auto) Baso # (Auto) Abs Immat Gran (auto) Absolute Neuts (auto) Absolute Nucleated RBC Nucleated RBC % Platelet Estimate Hypochromasia Anisocytosis Microcytosis Ovalocytes PT INR APTT Sodium Potassium Chloride Carbon Dioxide Anion Gap BUN Creatinine Estim Creat Clear Calc Estimated GFR Glucose Calcium Phosphorus Magnesium Iron 25 L TIBC 513 H % Saturation 5 L Ferritin 8.83 L Total Bilirubin AST ALT Alkaline Phosphatase Troponin I NT-Pro-B Natriuret Pep Total Protein Albumin Vitamin B12 Folate 04/30/22 04/30/22 05/01/22 17:43 23:39 05:10 WBC RBC Hgb 7.6 L Hct 28.5 L MCV MCH MCHC RDW Plt Count MPV Immature Gran % (Auto) Neut % (Auto) Lymph % (Auto) [place] % (Auto) Eos % (Auto) Baso % (Auto) Lymph # (Auto) [place] # (Auto) Eos # (Auto) Baso # (Auto) Abs Immat Gran (auto) Absolute Neuts (auto) Absolute Nucleated RBC Nucleated RBC % Platelet Estimate Hypochromasia Anisocytosis Microcytosis Ovalocytes PT INR APTT Sodium 136 L Potassium 4.1 Chloride 99 Carbon Dioxide 31 H Anion Gap 6 L BUN 15 Creatinine 0.90 Estim Creat Clear Calc 45 Estimated GFR > 60 Glucose 93 Calcium 8.6 Phosphorus 4.6 H Magnesium 2.2 Iron TIBC % Saturation Ferritin Total Bilirubin AST ALT Alkaline Phosphatase Troponin I NT-Pro-B Natriuret Pep Total Protein Albumin 4.0 Vitamin B12 812.0 Folate 5.5 05/01/22 05:10 WBC 6.8 RBC 4.11 L Hgb 7.9 L Hct 29.9 L MCV 72.7 L MCH 19.2 L MCHC 26.4 L RDW 18.0 H Plt Count 333 MPV 9.3 Immature Gran % (Auto) 0.6 H Neut % (Auto) 71.4 Lymph % (Auto) 14.0 L Mo
[2022-05-01] MEDS: FLUTICASONE/UMECLIDIN/VILANTER 200-62.5-25 MCG ELLIPTA 1 PUFF INHALATION (08:04)
[2022-05-01 08:05] VITALS: O2SAT 91
[2022-05-01] MEDS: FLUTICASONE PROPIONATE 0.05% NA SPR 16 GM BTL (*BKC) 1 SPRAY NASAL (08:45)
[2022-05-01] MEDS: BENZONATATE 100 MG CAPSULE 200 MG PO (08:46)
[2022-05-01] MEDS: POTASSIUM CHLORIDE 20 MEQ TABLET.ER BY MOUTH (08:47)
[2022-05-01] MEDS: ALPRAZolam (*CRX) 0.5 MG TABLET PO ×2 (08:48→12:29)
[2022-05-01] MEDS: busPIRone HCL 10 MG TABLET PO ×2 (08:48→12:29)
[2022-05-01] MEDS: buPROPion HCL 75 MG TABLET 150 MG PO (08:49)
[2022-05-01] MEDS: PANTOPRAZOLE SODIUM IV 40 MG VIAL IV PUSH (08:49)
[2022-05-01] MEDS: LOSARTAN POTASSIUM 100 MG TABLET BY MOUTH (08:49)
[2022-05-01] MEDS: IRON SUCROSE COMPLEX 100 MG in SODIUM CHLORIDE 0.9% IV 50 ML 220 MG IVPB (08:50)
[2022-05-01] MEDS: FUROSEMIDE INJ 40 MG/4 ML VIAL IV PUSH (10:35)
--- NOTE | 2022-05-01 13:56 | WPDGIPROGNO ---
Progress Note: A&P Assessment and Plan (1) Anemia: Code(s): D64.9 - Anemia, unspecified Status: Acute Assessment and Plan: hb low but stable patient denies active bleeding egd yesterday showed moderate gastritis without active bleeding continue with ppi daily and avoid nsaid's had colonoscopy 05/2020 with only small polyps, no need to repeat [place], call if questions (2) Erosive gastritis: Code(s): K29.60 - Other gastritis without bleeding Status: Acute Assessment and Plan: on ppi (3) Chronic respiratory failure with hypoxia: Code(s): J96.11 - Chronic respiratory failure with hypoxia Status: Chronic (4) Acute exacerbation of chronic obstructive pulmonary disease: Code(s): J44.1 - Chronic obstructive pulmonary disease with (acute) exacerbation Status: Acute Assessment and Plan: on treatment h/o lung surgery and quit smoking 1 year ago Subjective Date/time seen: 05/01/22 13:56 Interval history: she is breathing better today. EGD showed moderate gastritis without active bleeding Review of Systems Review of Systems: All systems reviewed & are unremarkable except as noted in HPI and below Exam Const: General: alert Orientation/consciousness: patient oriented x3 HENMT: General nose exam: Normal nares present Eyes: General: appearance normal, both eyes and all related structures Neck: Neck: supple Resp: Auscultation: wheezes Cardio: Rhythm: regular rhythm GI: GI Palp: Yes Soft to palpation, No Tenderness to palpation present (GI) and No Guarding due to palpation present (GI) Auscultation: normal bowel sounds Skin: General skin exam: no rashes or lesions noted Neuro: General: patient oriented x3 Psych: Mental Status: mental status grossly normal Objective Data Vital Signs Vital Signs: Vital Signs - 24 hr 04/30/22 16:48 04/30/22 16:58 04/30/22 17:08 Temperature Pulse Rate 94 95 95 Respiratory Rate 24 H 22 H 22 H Blood Pressure 140/72 157/77 H 142/77 H Pulse Oximetry 97 100 100 Oxygen Delivery Nasal Cannula Nasal Cannula Nasal Cannula Oxygen Flow Rate 4 2 2 04/30/22 17:30 04/30/22 18:00 04/30/22 18:30 Temperature 97.7 F 96.9 F L 98.1 F Pulse Rate 94 92 93 Respiratory Rate 20 20 20 Blood Pressure 151/67 H 150/72 H 153/68 H Pulse Oximetry 100 100 100 Oxygen Delivery Oxygen Flow Rate 04/30/22 19:42 04/30/22 20:00 05/01/22 00:52 Temperature 98.5 F 98.8 F Pulse Rate 95 95 88 Respiratory Rate 20 20 20 Blood Pressure 153/82 H 131/59 L Pulse Oximetry 99 99 100 Oxygen Delivery Nasal Cannula Oxygen Flow Rate 2 05/01/22 04:54 05/01/22 08:05 05/01/22 08:00 Temperature 98.7 F Pulse Rate 110 H Respiratory Rate 22 H Blood Pressure 151/92 H Pulse Oximetry 94 91 99 Oxygen Delivery Nasal Cannula Nasal Cannula Oxygen Flow Rate 2 2 05/01/22 10:17 05/01/22 11:16 Temperature Pulse Rate Respiratory Rate Blood Pressure Pulse Oximetry Oxygen Delivery Nasal Cannula Nasal Cannula Oxygen Flow Rate 2 2 Intake/Output Intake/Output: Intake & Output 04/28/22 04/29/22 04/30/22 05/01/22 23:59 23:59 23:59 23:59 Intake Total 800 1115 Output Total 900 Balance 800 215 Meds/Results Medications: Active Medications Generic Name Dose Route Start Last Admin Trade Name Freq PRN Reason Stop Dose Admin Albuterol 2.5 mg 04/30/22 18:37 Albuterol Sulfate Neb 2.5 Mg/3 Ml Inh INHALATION Q6H PRN Shortness Of Breath Or Wheezing Alprazolam 0.5 mg 04/30/22 18:50 05/01/22 12:29 Alprazolam (*Crx) 0.5 Mg Tablet PO 0.5 mg TID JOSE Administration Benzonatate 200 mg 04/30/22 19:12 05/01/22 08:46 Benzonatate 100 Mg Capsule PO 200 mg TID PRN Administration Cough Bupropion HCl 150 mg 04/30/22 18:50 05/01/22 08:49 Bupropion Hcl 75 Mg Tablet PO 150 mg BID JOSE Administration Buspirone HCl 10 mg 04/30/22 18:50
[2022-05-01 15:00] VITALS: BP 108/59; PULSE 89; RESP 20; TEMP 36.4; O2SAT 99
--- NOTE | 2022-05-01 15:22 | PM.DS ---
DS: Admitting Diagnosis Discharge Date 05/01/22 Admitting Diagnosis Shortness of breath DS: Discharge Diagnosis Discharge Diagnosis (1) Anemia: Code(s): D64.9 - Anemia, unspecified Status: Acute (2) Dyspnea: Code(s): R06.00 - Dyspnea, unspecified Status: Acute (3) Erosive gastritis: Code(s): K29.60 - Other gastritis without bleeding Status: Acute (4) GI bleed: Code(s): K92.2 - Gastrointestinal hemorrhage, unspecified Status: Acute (5) Chronic respiratory failure with hypoxia: Code(s): J96.11 - Chronic respiratory failure with hypoxia Status: Chronic (6) COPD (chronic obstructive pulmonary disease): Qualifiers: COPD type: unspecified COPD Qualified Code(s): J44.9 - Chronic obstructive pulmonary disease, unspecified Code(s): J44.9 - Chronic obstructive pulmonary disease, unspecified Status: Acute (7) Hypertension: Code(s): I10 - Essential (primary) hypertension Status: Acute (8) CAD (coronary artery disease): Qualifiers: Coronary Disease-Associated Artery/Lesion type: unspecified vessel or lesion type [place] vs. transplanted heart: [place] heart Associated angina: unspecified whether angina present Qualified Code(s): I25.10 - Atherosclerotic heart disease of [place] coronary artery without angina pectoris Code(s): I25.10 - Atherosclerotic heart disease of [place] coronary artery without angina pectoris Status: Acute DS: Summary Hospital Course Reason for hospitalization: 76yo female with hx of COPD, CAD, chronic respiratory failure and lung cancer who presents to the emergency room with complaints of shortness of breath.??Please see H&P for details. Hospital Course: Patient presents with increasing shortness of breath and found to be anemic with a hemoglobin is 7.6. Suspect dyspnea related to the anemia worsened by the chronic respiratory failure and that she is off her Lasix. She probably has very little reserve. Normal hemoglobin in October. History of peptic ulcer disease. She takes aspirin and Plavix but is also on pantoprazole b.i.d.. Stool was guaiac positive. Suspect small, chronic blood loss since microcytic. GI was consulted and EGD performed. EGD showing nonerosive reflux disease and gastritis. Serial Hgb was stable. Iron studies showing irn deficiency. She receied IV iron x 1. She was started on oral iron. We resumed Lasix as IV. We resumed inhalers and other home medications. GI did not feel a colonoscopy was warranted since she had one n 2020. Hgb stable and no pans for further GI workup at this time. Will discharge home on oral iron and increase her PPI to BID. She remained stable on her 2L oxygen. Status at Discharge Cognitive/behavioral status at discharge: Stable Time Spent with Patient Time attestation: Total time spent providing and/or coordinating discharge services: 34 minutes Time spent: Greater than 30 minutes Exam Narrative: AF 97.5 108/59 89 20 99% 2L Gen - NARD sitting up in bed Chest -few scattered end expiratory wheezes. nml RR CV - RRR. Distant S1-S2. Abd - soft, obese, NT, +BS Ext - no pedal edema Psych - Pleasant and cooperative. Skin - warm and dry DS: Data Data Completed and Pending Labs on day of discharge: Labs from last 24 hours 05/01/22 05/01/22 04/30/22 05:10 05:10 23:39 WBC 6.8 RBC 4.11 L Hgb 7.9 L 7.6 L Hct 29.9 L 28.5 L MCV 72.7 L MCH 19.2 L MCHC 26.4 L RDW 18.0 H Plt Count 333 MPV 9.3 Immature Gran % (Auto) 0.6 H Neut % (Auto) 71.4 Lymph % (Auto) 14.0 L Nicholas % (Auto) 13.7 H Eos % (Auto) 0.0 Baso % (Auto) 0.3 Lymph # (Auto) 0.95 Nicholas # (Auto) 0.9 H Eos # (Auto) 0.0 Baso # (Auto) 0.0 Abs Immat Gran (auto) 0.04 H Absolute Neuts (auto) 4.8 Absolute Nucleated RBC 0.0 Nucleated RBC % 0.0 Platelet Estimate Adequate Hypochromasia
== END 2022-05-01 16:30 | disposition home or self-care (01) | DRG 378 ==
LOC: ANHED 11:26 → ANH3MED 12:20
PROVIDERS: Internal Medicine Gastroenterology; Admitting Provider Internal Medicine; Emergency Provider Emergency Medicine; PCP Internal Medicine; Visit Provider Internal Medicine
PROC: 0DJ08ZZ Inspection of Upper Intestinal Tract, Via Natural or Artificial Opening Endoscopic (ICD-10-PCS; CPT 43235; principal; 2022-04-30 15:00)
DX: K29.61 Other gastritis with bleeding (principal); I50.20 Unspecified systolic (congestive) heart failure; J44.1 Chronic obstructive pulmonary disease with (acute) exacerbation; J96.11 Chronic respiratory failure with hypoxia; D64.9 Anemia, unspecified; I10 Essential (primary) hypertension; I25.10 Atherosclerotic heart disease of native coronary artery without angina pectoris; I73.9 Peripheral vascular disease, unspecified; G47.33 Obstructive sleep apnea (adult) (pediatric); Z85.118 Personal history of other malignant neoplasm of bronchus and lung; E78.2 Mixed hyperlipidemia; E53.8 Deficiency of other specified B group vitamins; E55.9 Vitamin D deficiency, unspecified; K21.9 Gastro-esophageal reflux disease without esophagitis; I27.20 Pulmonary hypertension, unspecified; Z99.81 Dependence on supplemental oxygen; Z90.2 Acquired absence of lung [part of]; Z79.899 Other long term (current) drug therapy; Z79.82 Long term (current) use of aspirin; Z87.891 Personal history of nicotine dependence
CPT/HCPCS: 36415; 71046; 80053; 80069; 82607; 82728; 82746; 83540; 83550; 83735; 83880; 84484; 85014; 85018; 85025; 85610; 85730; 87081; 93005; 94640; 97161; 97165; A9270; C9113; J0131; J1756; J1940; J2001; J2704; J7030; J7120; J7512

== ENCOUNTER 2022-05-17 12:31 | Emergency (ER) | payer MEDICARE, SELFPAY ==
[2022-05-17] VITALS (27 sets, daily range): BP systolic 126–144; BP diastolic 70–80; PULSE 62–105; RESP 18–32; TEMP 36.3; O2SAT 86–100
--- NOTE | ~2022-05-17 | XR_ITS ---
EXAMINATION: XR chest 2V DATE: 05/17/2022 13:10 INDICATION: Shortness of breath. Hypotension. TECHNIQUE: PA and lateral views of the chest were obtained. COMPARISON: Chest radiograph dated 04/30/[address] dated 09/29/2021 FINDINGS: Increased lucency and architectural nodules in the left upper lung zone consistent with presumable be tter appreciated on prior CT. Postoperative change of prior partial pneumonectomy with suture lines a t the medial and lateral right upper lung zone and volume loss and chronic pleural parenchymal scarri ng along the elevated right hemidiaphragm. Calcified nodules in the left upper lung zone consistent w ith old granulomatous disease. No new airspace opacities, pulmonary edema, pleural effusion or pneumo thorax. Heart size is normal. Aneurysmal dilation of the thoracic aorta at the thoracic hiatus. Moder ate degenerative skeletal changes in the spine and at both shoulders. IMPRESSION: 1. Emphysema and postoperative change of prior partial right pneumonectomy. No acute cardiopulmonary disease. 2. Aneurysmal dilation of the distal descending thoracic aorta. Reviewed, dictated and finalized at location A.
--- NOTE | 2022-05-17 12:40 | ECG_ITS ---
Measurements Intervals [place] Rate: 92 P: 77 HI: 173 QRS: -18 QRSD: 129 T: 117 QT: 374 QTc: 463 Interpretive Statements SINUS RHYTHM FREQUENT VENTRICULAR PREMATURE COMPLEXES POSSIBLE LEFT ATRIAL ENLARGEMENT LEFT BUNDLE BRANCH BLOCK BASELINE WANDER- V6 ABNORMAL ECG Electronically Signed On 05-17-2022 18:41:40 CDT by Todd Sam D.O.
--- NOTE | 2022-05-17 12:40 | PC.NURSE ---
Pt placed on 6L/NC O2 in triage. SPO2 improved to 93%.
[2022-05-17 13:20] LABS: Basophils Absolute Auto 0.1 K/mm3 (0.0-0.1); Eosinophils Absolute Auto 0.1 K/mm3 (0-0.3); Eosinophils Percent Auto 1.3 % (0-4.4); Hematocrit 36.5 % (37.0-47.0); Hemoglobin 9.8 g/dL (12.0-15.0); Immature Granulocyte Absolute 0.04 K/mm3 (0.00-0.031); Immature Granulocyte Percent A 0.7 % (0-0.5); Lymphocytes Absolute Auto 0.85 K/mm3 (0.9-3.2); Lymphocytes Percent Auto 14.3 % (18.3-44.2); Mean Corpuscular HGB Conc 26.8 g/dl (32-36); Mean Corpuscular Hemoglobin 21.7 pg (26-34); Mean Corpuscular Volume 80.8 fl (80-100); Mean Platelet Volume 10.3 fl (7.4-10.4); Monocytes Absolute Auto 0.5 K/mm3 (0.1-0.6); Monocytes Percent Auto 8.2 % (2.6-8.5); Neutrophils Absolute Auto 4.4 K/mm3 (1.3-6.7); Neutrophils Percent Auto 74.5 % (45.5-73.1); Platelet Count Result 340 k/mm3 (150-375); Red Blood Count 4.52 M/mm3 (4.2-5.4); Red Cell Distribution Width 27.4 % (11.5-14.5)
[2022-05-17 13:30] LABS: Alanine Aminotransferase 12 U/L (6-35); Albumin Level 3.9 g/dL (3.5-5.1); Alkaline Phosphatase 66 U/L (38-126); Anion Gap 7 mmol/L (8-16); Aspartate Amino Transferase 28 U/L (14-36); Bilirubin,Total 0.6 mg/dL (0.2-1.3); Blood Urea Nitrogen 14 mg/dL (7-17); Calcium 9.2 mg/dL (8.4-10.2); Carbon Dioxide 31 mmol/L (22-30); Chloride 100 mmol/L (98-107); Estimated CRCL calculation 26 ml/min; Estimated Glomerular Filt Rate 31; Glucose 94 mg/dL (65-110); Potassium 3.7 mmol/L (3.4-5.0); Sodium 138 mmol/L (137-145)
[2022-05-17 13:59] LABS: Anisocytosis 2+ (NORMAL); Poikilocytosis 1+ (NORMAL)
[2022-05-17 14:00] LABS: Hypochromasia 1+ (NORMAL); Platelet Estimate Adequate (Adequate)
--- NOTE | 2022-05-17 15:13 | ED.GENADULT ---
HPI - General Adult General Chief complaint: Shortness of Breath/Dyspnea Stated complaint: shortness of breath and low blood pressure Time Seen by Provider: 05/17/22 14:54 History of Present Illness HPI narrative: 76-year-old female history of COPD with an oxygen requirement of 2 to 3 L by nasal cannula at home presents to the emergency department for evaluation of of a low pulse ox at home. Patient was evaluated by home health and they stated that she was saturating at 85% on 5 L. Patient states she does have a history of COPD. Patient does have a history of a partial lobectomy due to prior lung cancer. Patient states that she is not very active at baseline and states that she has no worsening shortness of breath compared to baseline. Patient previously had been using nebulized albuterol along with an albuterol rescue inhaler but she was told to stop using the nebulized albuterol and only use the albuterol inhaler. Patient states she does not use a spacer with the albuterol inhaler. Related Data Home Medications Medication Instructions Recorded Confirmed aspirin 81 mg tablet,delayed 81 mg PO DAILY 06/11/20 05/05/22 release (Adult Low Dose Aspirin) plecanatide 3 mg tablet (Trulance) 3 mg PO DAILY PRN Constipation 06/05/21 05/05/22 fluticasone propionate 50 1 spray intranasal DAILY 04/30/22 05/05/22 mcg/actuation nasal spray,suspension albuterol sulfate 90 mcg/actuation 2 inh inhalation Q4-6H PRN 05/05/22 05/05/22 aerosol inhaler Shortness Of Breath Or Wheezing bupropion HCl 75 mg tablet 75 mg PO BID 05/05/22 05/05/22 clopidogrel 75 mg tablet 75 mg PO DAILY 05/05/22 05/05/22 cyanocobalamin (vitamin B-12) 1,000 mcg PO DAILY 05/05/22 05/05/22 1,000 mcg tablet ferrous sulfate 325 mg (65 mg 325 mg PO BIDWM 05/05/22 05/05/22 iron) tablet fluticasone fur. 200 mcg-umeclid 1 inh inhalation DAILY 05/05/22 05/05/22 62.5 mcg-vilant 25 mcg inhalat.powder (Trelegy Ellipta) losartan 100 mg tablet 100 mg PO DAILY 05/05/22 05/05/22 potassium chloride 20 mEq 20 meq PO DAILY 05/05/22 05/05/22 tablet,extended release roflumilast 250 mcg tablet 250 mcg PO DAILY 05/05/22 05/05/22 (Daliresp) tramadol 50 mg tablet 50 mg PO Q6H PRN Pain (Scale Score 05/05/22 05/05/22 4-6) Allergies Allergy/AdvReac Type Severity Reaction Status Date / Time ezetimibe Allergy Unknown drowsiness Verified 04/30/22 12:42 fluticasone Allergy Unknown Asthma Verified 04/30/22 12:42 pravastatin Allergy Unknown leg cramps Verified 04/30/22 12:42 salmeterol [Advair Diskus] Allergy Unknown Asthma Verified 04/30/22 12:42 atorvastatin AdvReac Unknown leg cramps Verified 05/05/22 12:47 rosuvastatin AdvReac Unknown muscle Verified 04/30/22 12:42 cramps hydrocodone AdvReac Vomiting Verified 04/30/22 12:42 melatonin AdvReac Nausea Verified 05/05/22 12:47 Review of Systems Review of Systems: CONSTITUTIONAL: Denies fever, chills, or sweats. EYES: Denies visual changes, redness, or discharge. ENT: Denies rhinorrhea, congestion, sore throat, or otalgia. CARDIOVASCULAR: Denies chest pain, palpitations, or edema. RESPIRATORY: Reports shortness of breath at her baseline. GASTROINTESTINAL: Denies abdominal pain, nausea, vomiting, or diarrhea. GENITOURINARY: Denies dysuria or hematuria. SKIN: Denies rash or itching. MUSCULOSKELETAL: Denies back pain, joint pain, or myalgia. NEUROLOGIC: Denies headache, numbness, or weakness. [facility] Past Medical History Medical History (Updated 05/17/22 @ 17:17 by Sam Tena MD) AAA (abdominal aortic aneurysm) CAD (coronary artery disease) Cataract Cervical radiculopathy Cervicalgia Constipation COPD (chronic obstructive pulmonary disease) emphysema Depression Descending thoracic aortic aneurysm Encounter for routine adult health examination with abnormal findings Erosive gastritis GERD (gastroesophageal reflux disease) History of gastric ulcer History of lung cancer History of tobacco abuse Hypersomni
[2022-05-17] MEDS: ALBUTEROL SULFATE NEB 2.5 MG/3 ML INH 5 MG INHALATION (15:35)
[2022-05-17 16:28] LABS: SARS-CoV-2 RNA PCR Negative
== END 2022-05-17 17:30 | disposition home or self-care (01) ==
PROVIDERS: Emergency Medicine; Emergency Provider Emergency Medicine; PCP Internal Medicine
DX: J43.9 Emphysema, unspecified (principal); R09.02 Hypoxemia; Z20.822 Contact with and (suspected) exposure to COVID-19; I25.10 Atherosclerotic heart disease of native coronary artery without angina pectoris; I50.20 Unspecified systolic (congestive) heart failure; I11.0 Hypertensive heart disease with heart failure; K58.9 Irritable bowel syndrome, unspecified; E78.2 Mixed hyperlipidemia; G47.33 Obstructive sleep apnea (adult) (pediatric); I27.20 Pulmonary hypertension, unspecified; I49.3 Ventricular premature depolarization; E55.9 Vitamin D deficiency, unspecified; E53.8 Deficiency of other specified B group vitamins; K21.9 Gastro-esophageal reflux disease without esophagitis; Z85.118 Personal history of other malignant neoplasm of bronchus and lung; Z99.81 Dependence on supplemental oxygen; Z90.2 Acquired absence of lung [part of]; Z95.5 Presence of coronary angioplasty implant and graft; Z87.891 Personal history of nicotine dependence; I44.7 Left bundle-branch block, unspecified; R94.31 Abnormal electrocardiogram [ECG] [EKG]
CPT/HCPCS: 36415; 71046; 80053; 83605; 85025; 87040; 93005; 94640; 99284; C9803; U0003; U0005

== ENCOUNTER 2022-08-19 16:13 | Outpatient (CLI) | payer MEDICARE, SELFPAY ==
[2022-08-19 16:56] LABS: Basophils Percent Auto 0.5 % (0.2-1.2); Eosinophils Absolute Auto 0.1 K/mm3 (0-0.3); Eosinophils Percent Auto 1.2 % (0-4.4); Hematocrit 37.1 % (37.0-47.0); Hemoglobin 11.9 g/dL (12.0-15.0); Immature Granulocyte Absolute 0.05 K/mm3 (0.00-0.031); Immature Granulocyte Percent A 0.7 % (0-0.5); Lymphocytes Absolute Auto 0.88 K/mm3 (0.9-3.2); Lymphocytes Percent Auto 11.9 % (18.3-44.2); Mean Corpuscular HGB Conc 32.1 g/dl (32-36); Mean Corpuscular Hemoglobin 31.1 pg (26-34); Mean Corpuscular Volume 96.9 fl (80-100); Mean Platelet Volume 9.3 fl (7.4-10.4); Monocytes Absolute Auto 0.6 K/mm3 (0.1-0.6); Monocytes Percent Auto 7.8 % (2.6-8.5); Neutrophils Absolute Auto 5.8 K/mm3 (1.3-6.7); Neutrophils Percent Auto 77.9 % (45.5-73.1); Platelet Count Result 284 k/mm3 (150-375); Red Blood Count 3.83 M/mm3 (4.2-5.4); Red Cell Distribution Width 14.7 % (11.5-14.5); White Blood Count 7.4 K/mm3 (4.5-10.0)
[2022-08-19 17:05] LABS: Alanine Aminotransferase 15 U/L (6-35); Albumin Level 4.1 g/dL (3.5-5.1); Alkaline Phosphatase 114 U/L (38-126); Anion Gap 7 mmol/L (8-16); Aspartate Amino Transferase 25 U/L (14-36); Bilirubin,Total 0.6 mg/dL (0.2-1.3); Blood Urea Nitrogen 14 mg/dL (7-17); Calcium 9.3 mg/dL (8.4-10.2); Carbon Dioxide 37 mmol/L (22-30); Chloride 96 mmol/L (98-107); Cholesterol 232 mg/dL (0-200); Estimated Glomerular Filt Rate > 60; Glucose 114 mg/dL (65-110); HDL Direct 76 mg/dL; Potassium 3.5 mmol/L (3.4-5.0); Sodium 140 mmol/L (137-145); Triglycerides 124 mg/dL (<150)
[2022-08-19 17:15] LABS: LDL Cholesterol Direct 123 mg/dL
[2022-08-19 17:23] LABS: Hemoglobin A1C 4.8 % (<5.7)
[2022-08-19 18:26] LABS: Vitamin D 25 Hydroxy < 12.8 ng/mL
== END 2022-08-19 16:14 | disposition home or self-care (01) ==
PROVIDERS: PCP Internal Medicine; Visit Provider Internal Medicine
DX: E78.2 Mixed hyperlipidemia (principal); Z13.1 Encounter for screening for diabetes mellitus; R73.09 Other abnormal glucose; Z13.29 Encounter for screening for other suspected endocrine disorder; F41.9 Anxiety disorder, unspecified; E55.9 Vitamin D deficiency, unspecified; I10 Essential (primary) hypertension; Z79.899 Other long term (current) drug therapy
CPT/HCPCS: 36415; 80053; 80061; 82306; 83036; 84439; 84443; 85025

== ENCOUNTER 2022-08-26 14:50 | Outpatient (CLI) | payer MEDICARE, SELFPAY ==
--- NOTE | ~2022-08-26 | CT_ITS ---
EXAMINATION: CTA abdomen pelvis DATE: 08/26/2022 15:34 INDICATION: Abdominal aortic aneurysm TECHNIQUE: Computed tomographic angiography (CTA) of the abdomen and pelvis was performed with 100 mL Omnipaque-350 intravenous contrast. Maximum intensity projection 3D-reconstructions of the aorta and other arteries were constructed by the technologist on a separate workstation. The dose-length produ ct (DLP) was 1064.47 mGy-cm. Automated exposure control and iterative reconstruction technique were e mployed. COMPARISON: 11/20/2020 FINDINGS: There is a stable 5.2 x 3.8 cm fusiform aneurysm of the distal descending thoracic aorta. T here is a stable 3.2 x 2.8 cm fusiform infrarenal abdominal aortic aneurysm. There is no evidence of dissection. There is calcified atherosclerosis of the aorta and many of the other arteries. There is mild atherosclerosis of the celiac axis and superior mesenteric artery at their origins single renal arteries are present. The inferior artery is unremarkable. A stone is present in the nondistended gal lbladder. There is a 1.8 cm cyst of the liver. The spleen and pancreas are normal. Again noted is chr onic mild nodularity of the adrenal glands. The kidneys are unremarkable. There is no free intraperit reaves gas or evidence of bowel obstruction. No pathologically enlarged abdominal or pelvic lymph node s are identified. Colonic diverticulosis is present without evidence of diverticulitis. There is mode rate lumbar spondylosis. A fat-containing umbilical hernia is noted. IMPRESSION: 1. Stable fusiform aneurysms of the distal descending thoracic aorta and infrarenal abdominal aorta. Reviewed, dictated and finalized at location A. IMPRESSION: 1. Stable fusiform aneurysms of the distal descending thoracic aorta and infrar enal abdominal aorta.
== END 2022-08-26 14:51 | disposition home or self-care (01) ==
PROVIDERS: PCP Internal Medicine; Visit Provider Internal Medicine
DX: I71.40 Abdominal aortic aneurysm, without rupture, unspecified (principal)
CPT/HCPCS: 74174; Q9967

== ENCOUNTER 2022-11-06 19:43 | Emergency (ER) | payer MEDICARE, SELFPAY ==
--- NOTE | ~2022-11-06 | XR_ITS ---
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 shortness of breath. Comparison: 05/17/22. RESULT: Lines, tubes, and devices: Surgical staple lines in the right hilum and right upper lung. Lungs and pleura: Chronic pleural parenchymal scarring in the right lower thorax. Senescent and emph ysematous change. Cardiomediastinal silhouette: Stable. Other: No acute osseous or upper abdominal finding. IMPRESSION: No acute cardiopulmonary process. Reviewed, dictated and finalized at location K. BOX OPERATOR
--- NOTE | 2022-11-06 19:50 | ED.SOB ---
HPI - SOB/Dyspnea General Chief Complaint: Upper Respiratory Infection Stated Complaint: ambulance Time Seen by Provider: 11/06/22 19:45 Source: patient, EMS and RN notes reviewed Mode of arrival: EMS Limitations: no limitations History of Present Illness HPI Narrative: patient states she was diagnosed with COVID 6 days ago. She has gotten more short of breath over the last 3 days. She has a history of chronic COPD. She is on 3 L of oxygen constantly at home. She is already being treated with Paxlovid. She is not on any steroids. She has nebulizer treatments at home. MD elicited complaint: shortness of breath Pertinent past history: COPD and other ( COVID) Onset (ago): day(s) (3) Context: recent illness ( COVID) and anxiety Timing: constant Severity: moderate Known history of: COPD Treatment prior to arrival: bronchodilator (at home) Related Data Home oxygen amount: 3 liters Home Medications Medication Instructions Recorded Confirmed aspirin 81 mg tablet,delayed 81 mg PO DAILY 06/11/20 11/06/22 release (Adult Low Dose Aspirin) fluticasone propionate 50 1 spray intranasal DAILY 04/30/22 11/06/22 mcg/actuation nasal spray,suspension clopidogrel 75 mg tablet 75 mg PO DAILY 05/05/22 11/06/22 cyanocobalamin (vitamin B-12) 1,000 mcg PO DAILY 05/05/22 11/06/22 1,000 mcg tablet cholecalciferol (vitamin D3) 50 50 mcg PO DAILY 08/23/22 11/06/22 mcg (2,000 unit) capsule Allergies Allergy/AdvReac Type Severity Reaction Status Date / Time ezetimibe Allergy Unknown drowsiness Verified 11/06/22 20:51 fluticasone Allergy Unknown Asthma Verified 11/06/22 20:51 pravastatin Allergy Unknown leg cramps Verified 11/06/22 20:51 salmeterol [Advair Diskus] Allergy Unknown Asthma Verified 11/06/22 20:51 atorvastatin AdvReac Unknown leg cramps Verified 11/06/22 20:51 rosuvastatin AdvReac Unknown muscle Verified 11/06/22 20:51 cramps hydrocodone AdvReac Vomiting Verified 11/06/22 20:51 melatonin AdvReac Nausea Verified 11/06/22 20:51 [facility] Past Medical History Medical History (Updated 11/06/22 @ 21:28 by Jose Rice MD) AAA (abdominal aortic aneurysm) BMI 32.0-32.9,adult BMI 33.0-33.9,adult CAD (coronary artery disease) Cataract Cervical radiculopathy Cervicalgia Chronic low back pain Constipation COPD (chronic obstructive pulmonary disease) emphysema Depression Descending thoracic aortic aneurysm Edema Encounter for routine adult health examination with abnormal findings Erosive gastritis GERD (gastroesophageal reflux disease) History of gastric ulcer History of lung cancer History of tobacco abuse Hypersomnia Hypertension Hypoxia IBS (irritable bowel syndrome) Left shoulder pain correction current use of therapeutic drug Lung cancer Rt lobectomy but no chemo or XRT Mixed hyperlipidemia Obstructive sleep apnea On skilled nursing drug therapy Other specified diseases of anus and rectum Polycythemia Pulmonary hypertension PVD (peripheral vascular disease) Systolic CHF Tobacco abuse Vitamin B12 deficiency Vitamin D deficiency Weakness Surgical History Surgical History History of appendectomy History of hysterectomy History of lobectomy of lung Hx of pneumonectomy Stented coronary artery stent x2 to RCA and LAD 2-3 years ago Family History Family History Father Heart disease Sibling Heart disease Social History Social History Social History: Smoked tobacco 1ppd x 55 yrs but quit 1 year ago. Lives at home with her with family that live near by who are helpful. Drinks 1-2 drinks per day. Denies drug use. Full code. She nominates Her to be the 1 to make medical decisions for her if she is unable. Smoking packs per day: 1 Smoking cigarettes per day: 20.0 Years smoked: 50 Smoking pack-years: 50.00 [place]
[2022-11-06 19:51] VITALS: O2SAT 100
[2022-11-06 19:52] VITALS: BP 142/73; PULSE 77; RESP 16; TEMP 36.6; O2SAT 100
[2022-11-06 20:25] LABS: Base Excess ABG 17.3 mmol/L (0-2); HCO3 ABG 43.2 mmol/L (23-29); Oxygen Content ABG 18.9 %vol (16.0-22.0); Oxygen Saturation ABG 97.6 % (95-97); Oxyhemoglobin 97.1 % (94-100); PCO2 ABG 55.1 mmHg (35-45); PO2 ABG 101.1 mmHg (75-85); Total Hemoglobin 13.8 g/dL (12.0-18.0); pH ABG 7.51 (7.35-7.45)
[2022-11-06 20:33] LABS: Device NASAL CANNULA; Modified Allen's Test Pass; Site Drawn LEFT RADIAL
[2022-11-06 20:37] LABS: Basophils Absolute Auto 0.01 K/mm3 (0.00-0.10); Basophils Percent Auto 0.1 % (0.0-1.0); Eosinophils Absolute Auto 0.06 K/mm3 (0.02-0.50); Eosinophils Percent Auto 0.7 % (1.0-6.0); Hematocrit 38.7 % (35.0-42.0); Hemoglobin 12.7 g/dL (11.7-13.8); Immature Granulocyte Absolute 0.03 K/mm3 (0.00-0.00); Immature Granulocyte Percent A 0.3 % (0.0-0.0); Lymphocytes Absolute Auto 0.86 K/mm3 (1.10-4.50); Mean Corpuscular HGB Conc 32.8 g/dL (32.0-36.0); Mean Corpuscular Hemoglobin 30.5 pg (27.0-31.0); Mean Corpuscular Volume 92.8 fL (78.0-102.0); Mean Platelet Volume 10.3 fl (9.2-11.8); Monocytes Absolute Auto 0.68 K/mm3 (0.10-0.90); Monocytes Percent Auto 7.9 % (2.0-11.0); Platelet Count Result 224 K/mm3 (150-420); Red Blood Count 4.17 M/mm3 (4.20-5.40); Red Cell Distribution Width 13.4 % (11.6-14.4); White Blood Count 8.6 K/mm3 (4.8-10.8)
[2022-11-06 20:43] VITALS: BP 123/101; PULSE 99; RESP 20; TEMP 36.7; O2SAT 99
[2022-11-06 20:52] LABS: Magnesium 2.4 mg/dL (1.8-2.4)
[2022-11-06 20:57] LABS: Lactic Acid Reflex 1.3 mmol/L (0.4-2.0)
[2022-11-06 21:17] LABS: Blood Urea Nitrogen 35 mg/dL (7-18); Carbon Dioxide > 45 mmol/L (21-32); Chloride 95 mmol/L (98-108); Estimated Glomerular Filt Rate 30; Sodium 144 mmol/L (136-145)
[2022-11-06 21:18] LABS: Alanine Aminotransferase 29 U/L (14-59); Albumin Level 3.4 g/dL (3.4-5.0); Alkaline Phosphatase 70 U/L (46-116); Aspartate Amino Transferase 28 U/L (15-37); Bilirubin,Total 0.5 mg/dL (0.00-1.00); Calcium 9.5 mg/dL (8.5-10.1); Glucose 123 mg/dL (70-99); Osmolality Calculated 307 mOsm/kg (285-295); Total Protein 7.3 g/dL (6.4-8.2)
[2022-11-06 21:19] LABS: Potassium 2.1 mmol/L (3.5-5.1)
[2022-11-06] MEDS: POTASSIUM BICARBONATE 25 MEQ TABEF 50 MEQ PO (21:23)
[2022-11-06] MEDS: traZODone HCL 50 MG TABLET PO (21:34)
[2022-11-06 21:43] VITALS: BP 121/81; PULSE 69; RESP 20; TEMP 36.7; O2SAT 100
== END 2022-11-06 21:45 | disposition home or self-care (01) ==
PROVIDERS: Emergency Provider Emergency Medicine; PCP Internal Medicine
DX: J44.9 Chronic obstructive pulmonary disease, unspecified (principal); U07.1 COVID-19; E87.6 Hypokalemia; Z99.81 Dependence on supplemental oxygen; I11.0 Hypertensive heart disease with heart failure; I50.20 Unspecified systolic (congestive) heart failure; I25.10 Atherosclerotic heart disease of native coronary artery without angina pectoris; I71.40 Abdominal aortic aneurysm, without rupture, unspecified; K21.9 Gastro-esophageal reflux disease without esophagitis; E78.2 Mixed hyperlipidemia; G47.33 Obstructive sleep apnea (adult) (pediatric); I49.3 Ventricular premature depolarization; E55.9 Vitamin D deficiency, unspecified; E53.8 Deficiency of other specified B group vitamins; Z95.5 Presence of coronary angioplasty implant and graft; Z85.118 Personal history of other malignant neoplasm of bronchus and lung; Z90.2 Acquired absence of lung [part of]; Z87.891 Personal history of nicotine dependence; Z79.82 Long term (current) use of aspirin; Z79.02 Long term (current) use of antithrombotics/antiplatelets; Z79.51 Long term (current) use of inhaled steroids
CPT/HCPCS: 36415; 36600; 71045; 80053; 82805; 83605; 83735; 85025; 96372; 99283; A9270; J1100

== ENCOUNTER 2022-11-16 15:09 | Outpatient (CLI) | payer MEDICARE, SELFPAY ==
--- NOTE | ~2022-11-16 | XR_ITS ---
EXAMINATION: XR abdomen/kub 1V DATE: 11/16/2022 15:50 INDICATION: Gaseous abdominal distention. Abdominal pain. TECHNIQUE: A supine view of the abdomen on 2 radiographs was obtained. COMPARISON: CT abdomen and pelvis 08/26/2022 FINDINGS: There are no dilated loops of bowel. There is a small volume of stool in the colon. There a re vascular calcifications in the abdomen and pelvis. There is chronic scarring at right lung base. IMPRESSION: 1. Normal bowel gas pattern. Reviewed, dictated and finalized at location A. EL DINKEY OPERATOR
== END 2022-11-16 15:10 | disposition home or self-care (01) ==
PROVIDERS: PCP Internal Medicine; Visit Provider Internal Medicine Gastroenterology
DX: R14.0 Abdominal distension (gaseous) (principal)
CPT/HCPCS: 74018

== ENCOUNTER 2022-11-18 06:06 | Emergency (ER) | payer MEDICARE, SELFPAY ==
[2022-11-18] VITALS (10 sets, daily range): BP systolic 135–155; BP diastolic 58–91; PULSE 69–89; RESP 18–20; TEMP 36.2–37; O2SAT 95–100
--- NOTE | ~2022-11-18 | CT_ITS ---
Non-contrast CT scan of the Abdomen and Pelvis Clinical indication: Abdominal pain Technique: 5 mm axial scans were obtained through the abdomen and pelvis without intravenous or oral contrast. Dose reduction technique was used on this scan by utilizing automated exposure control and iterative reconstruction technique. The dose-length product (DLP) was 467.72 mGy-cm. COMPARISON: 08/26/2022 Findings: Images through the lung bases reveal stable basilar scarring. Stable aneurysmal dilatation of the distal descending thoracic aorta at the aortic hiatus region is present. There is no evidence of renal or ureteral calculi. The kidneys and the ureters are nondilated. Stable hepatic cyst noted. Small calcified gallstone present. Stable low-density right adrenal nodule , compatible with adenoma. The spleen, pancreas, and left adrenal gland appear normal. There is minim al aneurysmal dilatation of the infrarenal abdominal aorta which measures up to maximum of 3.4 cm in transverse dimension. There is no evidence of bowel obstruction. Images through the pelvis were performed. There is no evidence of ascites or lymphadenopathy. Urinary bladder unremarkable. Patient is status post hysterectomy. No pelvic mass evident. Impression: Stable aneurysmal dilatation of the distal descending thoracic aorta. Stable mild aneurysmal dilatation of the infrarenal abdominal aorta. Cholelithiasis. Reviewed, dictated and finalized at location . NESS OBJECTS ARCHITECT Impression: Stable aneurysmal dilatation of the distal descending thoracic aorta. Stable mild aneurysmal dilatation of the infrarenal abdominal aorta. Cholelithiasis.
--- NOTE | ~2022-11-18 | XR_ITS ---
Clinical Indication: Shortness of breath AP and lateral views of the chest: Comparison: 11/06/2022 Findings: Stable blunting of the right costophrenic angle noted. Stable suture lines in the right graham g. Left lung clear.. Cardiomediastinal silhouette is within normal limits. Bones and soft tissues ar e unremarkable. Impression: Probable chronic changes in the left lung including suture lines and probable chronic blunting of the right costophrenic angle. Small right pleural effusion not excluded. No definite acute abnormality seen. Reviewed, dictated and finalized at location M. OWN MACHINE OPERATOR Impression: Probable chronic changes in the left lung including suture lines and probable c hronic blunting of the right costophrenic angle. Small right pleural effusion n ot excluded. No definite acute abnormality seen.
--- NOTE | 2022-11-18 06:08 | ED.ABDPAIN ---
HPI - Abdominal Pain General Chief Complaint: Abdominal Pain <Vaughn Soliz MD - Last Filed: 11/27/22 07:09> Stated Complaint: Abd Pain <Vaughn Soliz MD - Last Filed: 11/27/22 07:09> Time Seen by Provider: 11/18/22 06:07 <Vaughn Soliz MD - Last Filed: 11/27/22 07:09> Source: patient <Vaughn Soliz MD - Last Filed: 11/27/22 07:09> Mode of arrival: ambulatory <Vaughn Soliz MD - Last Filed: 11/27/22 07:09> Limitations: no limitations <Vaughn Soliz MD - Last Filed: 11/27/22 07:09> History of Present Illness HPI narrative: 77-year-old female, ex-smoker with a history of anxiety/ depression, hypertension, DEBBIE, lung cancer status post right lobectomy, COPD on home oxygen, coronary artery disease status post RCA / lad stent, atrial fibrillation, CHF, peripheral vascular disease, gastritis, constipation, AAA presents to the ER with a 12 hour history of -- diffuse abdominal pain. No radiation of the pain. No exacerbating or relieving factors. -- Nausea with multiple episodes of vomiting. No diarrhea. No fever. The patient has chronic abdominal pain. She was seen by GI specialist on 11/16/2022 and noted to have gastritis. She had an abdominal KUB which was unremarkable. The patient tested positive for COVID on 10/31/2022 and was treated with Paxlovid. She presented with shortness of breath and presented to the ER on 11/06/2022. She was noted to have acute renal failure. <Vaughn Soliz MD - Last Filed: 11/27/22 07:09> MD elicited complaint: abdominal pain <Vaughn Soliz MD - Last Filed: 11/27/22 07:09> Pertinent past history: constipation and gastritis <Vaughn Soliz MD - Last Filed: 11/27/22 07:09> Onset (ago): hour(s) ( She has chronic abdominal pain. Her current episode of abdominal pain started after supper last night) <Vaughn Soliz MD - Last Filed: 11/27/22 07:09> Pain Consistency: constant <Vaughn Soliz MD - Last Filed: 11/27/22 07:09> Location: diffuse <Vaughn Soliz MD - Last Filed: 11/27/22 07:09> Severity: moderate <Vaughn Soliz MD - Last Filed: 11/27/22 07:09> Quality: aching <Vaughn Soliz MD - Last Filed: 11/27/22 07:09> Radiation: none <Vaughn Soliz MD - Last Filed: 11/27/22 07:09> Migration to: no migration <Vaughn Soliz MD - Last Filed: 11/27/22 07:09> Exacerbating factors: nothing <Vaughn Soliz MD - Last Filed: 11/27/22 07:09> Relieving factors: nothing <Vaughn Soliz MD - Last Filed: 11/27/22 07:09> Associated symptoms: nausea and vomiting <Vaughn Soliz MD - Last Filed: 11/27/22 07:09> Related Data Home Medications: Home Medications Medication Instructions Recorded Confirmed aspirin 81 mg tablet,delayed 81 mg PO DAILY 06/11/20 11/18/22 release (Adult Low Dose Aspirin) fluticasone propionate 50 1 spray intranasal DAILY 04/30/22 11/18/22 mcg/actuation nasal spray,suspension clopidogrel 75 mg tablet 75 mg PO DAILY 05/05/22 11/18/22 cyanocobalamin (vitamin B-12) 1,000 mcg PO DAILY 05/05/22 11/18/22 1,000 mcg tablet cholecalciferol (vitamin D3) 50 50 mcg PO DAILY 08/23/22 11/18/22 mcg (2,000 unit) capsule <Vaughn Soliz MD - Last Filed: 11/27/22 07:09> Allergies/Adverse Reactions: Allergies Allergy/AdvReac Type Severity Reaction Status Date / Time fluticasone Allergy Unknown Asthma Verified 11/23/22 09:03 pravastatin Allergy Unknown leg cramps Verified 11/23/22 09:03 salmeterol [Advair Diskus] Allergy Unknown Asthma Verified 11/23/22 09:03 atorvastatin AdvReac Unknown leg cramps Verified 11/23/22 09:03 ezetimibe AdvReac Unknown drowsiness Verified 11/23/22 09:03 rosuvastatin AdvReac Unknown muscle Verified 11/23/22 09:03 cramps hydrocodone AdvReac Vomiting Verified 11/23/22 09:03 melatonin AdvReac Nausea Verified 11/23/22 09:03 Chuckie Thrasher
[2022-11-18] MEDS: MORPHINE SULFATE (*CRX) 4 MG/ML INJ IM (06:27)
[2022-11-18] MEDS: ONDANSETRON HCL ODT 4 MG TABLET PO (06:29)
--- NOTE | 2022-11-18 06:40 | PC.NURSE ---
req to start IV x2 patient refused, stating in too much pain to have IV. changed meds to IM & PO
[2022-11-18 06:43] LABS: Basophils Absolute Auto 0.02 K/mm3 (0.00-0.10); Basophils Percent Auto 0.2 % (0.0-1.0); Eosinophils Absolute Auto 0.05 K/mm3 (0.02-0.50); Eosinophils Percent Auto 0.4 % (1.0-6.0); Hematocrit 39.7 % (35.0-42.0); Hemoglobin 13.5 g/dL (11.7-13.8); Immature Granulocyte Absolute 0.12 K/mm3 (0.00-0.00); Immature Granulocyte Percent A 0.9 % (0.0-0.0); Lymphocytes Absolute Auto 0.49 K/mm3 (1.10-4.50); Lymphocytes Percent Auto 3.8 % (18.0-42.0); Mean Corpuscular Hemoglobin 30.8 pg (27.0-31.0); Mean Corpuscular Volume 90.6 fL (78.0-102.0); Mean Platelet Volume 10.3 fl (9.2-11.8); Monocytes Absolute Auto 0.53 K/mm3 (0.10-0.90); Monocytes Percent Auto 4.1 % (2.0-11.0); Neutrophils Absolute Auto 11.7 K/mm3 (1.7-7.2); Neutrophils Percent Auto 90.6 % (50.0-70.0); Platelet Count Result 271 K/mm3 (150-420); Red Blood Count 4.38 M/mm3 (4.20-5.40); Red Cell Distribution Width 13.4 % (11.6-14.4); White Blood Count 12.9 K/mm3 (4.8-10.8)
[2022-11-18 06:58] LABS: Prothrombin Time 10.5 Seconds (9.50-12.10)
[2022-11-18 07:02] LABS: Alanine Aminotransferase 53 U/L (14-59); Albumin Level 3.3 g/dL (3.4-5.0); Alkaline Phosphatase 82 U/L (46-116); Aspartate Amino Transferase 31 U/L (15-37); Blood Urea Nitrogen 26 mg/dL (7-18); Calcium 9.1 mg/dL (8.5-10.1); Chloride 90 mmol/L (98-108); Estimated CRCL calculation 26 ml/min; Estimated Glomerular Filt Rate 28; Glucose 203 mg/dL (70-99); Lipase 43 U/L (16-77); Osmolality Calculated 306 mOsm/kg (285-295); Sodium 143 mmol/L (136-145); Total Protein 6.4 g/dL (6.4-8.2)
[2022-11-18 07:04] LABS: Lactic Acid Reflex 1.9 mmol/L (0.4-2.0); Potassium 1.7 mmol/L (3.5-5.1)
[2022-11-18 07:05] LABS: Troponin I 160.3 ng/L (0.00-60.4)
--- NOTE | 2022-11-18 07:10 | ECG_ITS ---
Measurements Intervals [place] Rate: 80 P: 93 UT: 176 QRS: 40 QRSD: 142 T: 118 QT: 458 QTc: 530 Interpretive Statements SINUS RHYTHM VENTRICULAR COUPLET AND VENTRICULAR PREMATURE COMPLEXES LEFT BUNDLE BRANCH BLOCK BASELINE ARTIFACT- I, III, AVL, AVF, V1, V4-V6 ABNORMAL ECG COMPARED TO ECG 05/17/2022 13:00:41 NO SIGNIFICANT CHANGES Electronically Signed On 11-18-2022 7:54:31 COIL WINDER REPAIR by Todd Sam D.O.
[2022-11-18 07:12] LABS: Carbon Dioxide > 45 mmol/L (21-32)
[2022-11-18] MEDS: PANTOPRAZOLE SODIUM IV 40 MG VIAL IV PUSH (07:27)
[2022-11-18] MEDS: LACTATED RINGERS 500 ML 999 ML IV CONT (07:27)
[2022-11-18] MEDS: KCL 20 MEQ/SW 100 ML 100 ML 50 MEQ IVPB (07:28)
[2022-11-18 07:33] LABS: CRP < 0.5 mg/dL (0.0-0.9)
[2022-11-18 07:34] LABS: SARS-CoV-2 RNA PCR Negative (Negative)
[2022-11-18 07:45] LABS: Add Urine Microscopic? YES; Appearance Urine Clear (Clear); Bilirubin Urine Negative (Negative); Blood Urine Trace-Intact (Negative); Color Urine Light Yellow (Yellow); Glucose Urine UA Negative (Negative); Ketones Urine Negative (Negative); Leukocyte Esterase Ur Trace LEU/UL (Negative); Nitrate Urine Negative (Negative); Protein Urine Negative (Negative); Urobilinogen Urine 0.2 mg/dL (0.2-1.0)
--- NOTE | 2022-11-18 07:45 | PC.NURSE ---
pt strongly refuses iv potassium. pt educated on administration tech with fluids in tandem to reduce discomfort. informed of need for this medication. pt continues to refuse. erp at bedside providing risks and benefits.
[2022-11-18 07:49] LABS: RBC Urine 0-2 /hpf (0-2); WBC Urine 0-3 /hpf (0-3)
[2022-11-18 07:50] LABS: Bacteria Urine Trace /hpf; Squamous Epithelial Cell Urine Few /hpf (Few)
[2022-11-18] MEDS: POTASSIUM BICARBONATE 25 MEQ TABEF 50 MEQ PO ×2 (08:06→10:07)
[2022-11-18] MEDS: MORPHINE SULFATE (*CRX) 2 MG/ML INJ IV PUSH (10:07)
--- NOTE | 2022-11-18 10:51 | PC.NURSE ---
[facility] house nursing animal trainer supervisor called. bed assignment delayed, waiting for discharges at this time. may be a few hours. will call back when bed opens up.
[2022-11-18] MEDS: ONDANSETRON INJ 4 MG/2 ML VIAL IV PUSH (11:28)
[2022-11-18] MEDS: HYDROmorphone HCL INJ (*CRX) 2 MG/ML VIAL 0.5 MG IV PUSH (13:21)
--- NOTE | 2022-11-18 13:38 | PC.NURSE ---
[facility] paged for transfer. pt informed of impending transfer. no emesis since last zofran dose.
== END 2022-11-18 14:01 | disposition short-term general hospital (02) ==
PROVIDERS: Internal Medicine Critical Care Medicine; Emergency Provider Emergency Medicine; PCP Internal Medicine
DX: R10.9 Unspecified abdominal pain (principal); F41.9 Anxiety disorder, unspecified; J44.9 Chronic obstructive pulmonary disease, unspecified; I25.10 Atherosclerotic heart disease of native coronary artery without angina pectoris; I48.91 Unspecified atrial fibrillation; I11.0 Hypertensive heart disease with heart failure; I50.9 Heart failure, unspecified; Z85.118 Personal history of other malignant neoplasm of bronchus and lung; Z99.81 Dependence on supplemental oxygen; Z87.891 Personal history of nicotine dependence; Z20.822 Contact with and (suspected) exposure to COVID-19; Z79.82 Long term (current) use of aspirin
CPT/HCPCS: 36415; 71046; 74176; 80053; 81001; 83605; 83690; 84484; 85025; 85610; 86140; 93005; 96361; 96365; 96372; 96375; 99285; A9270; C9113; J1170; J2270; J2405; J3480; J7120; U0003; U0005

== ENCOUNTER 2022-11-18 14:55 | Inpatient (IN) | payer MEDICARE, SELFPAY ==
--- NOTE | ~2022-11-18 | US_ITS ---
EXAMINATION: US renal BI DATE: 11/18/2022 20:52 INDICATION: Acute renal failure. TECHNIQUE: Multiple ultrasound grayscale images of the kidneys were obtained. COMPARISON: CT abdomen and pelvis 11/18/22 FINDINGS: The right kidney measures 9.5 x 3.8 x 4.7 cm. The left kidney measures 9.0 x 4.4 x 4.6 cm. The kidney s demonstrate normal parenchymal echogenicity. There is no hydronephrosis. The bladder is decompresse d. IMPRESSION: 1. Normal kidneys. No hydronephrosis. Reviewed, dictated and finalized at location A. RESSIONAL REPRESENTATIVE
--- NOTE | ~2022-11-18 | US_ITS ---
EXAMINATION: US right upper quadrant DATE: 11/20/2022 08:27 INDICATION: Abdominal pain. TECHNIQUE: Multiple grayscale and Doppler ultrasound images of the abdomen were obtained. COMPARISON: CT abdomen and pelvis 11/18/22 FINDINGS: The visualized portions of the head and body of the pancreas are normal. There is a 1.9 cm cyst in the liver. There is normal flow in main portal vein. The gallbladder is normal in size and co ntains a gallstone. No gallbladder wall thickening or sonographic Denney sign. The common duct is nor mal and measures 4 mm. IMPRESSION: 1. Cholelithiasis. No evidence of acute cholecystitis. Reviewed, dictated and finalized at location A. TENANCE MAN
--- NOTE | ~2022-11-18 | NM_ITS ---
EXAMINATION: NM hepatobiliary wo pharm DATE: 11/26/2022 11:38 INDICATION: Cholelithiasis. Abdominal pain and bloating. COMPARISON: CT abdomen and pelvis 11/18/22, ultrasound 11/20/2022 TECHNIQUE: 4.0 mCi Tc-99m mebrofenin (Choletec) was administered intravenously. Scintigraphic images of the abdomen were obtained for one hour. FINDINGS: There is normal clearance of radiotracer from the blood pool. There is homogeneous tracer u ptake by the liver. Activity progresses to the bowel and gallbladder. IMPRESSION: 1. Patent cystic duct and common duct. No evidence of acute cholecystitis. Reviewed, dictated and finalized at location A. ING ENGINEER
--- NOTE | 2022-11-18 14:57 | ADMGEN ---
This patient, Hetal Stone, was admitted to [facility] Surg Room 315-01. Patient/family oriented to hospital policies and general routines including ID bracelet, bed and alarms, visiting hours, pain management, procedures, bathroom and other care routines, personal items, smoking policy, room service/diet, and visiting hours. Information on how to activate the Rapid Response Team has been discussed. Patient/Family are encouraged to report perceived risks to care and to ask questions if they do not understand what they are told or what they should do.
[2022-11-18 15:15] VITALS: BMI 29.5
[2022-11-18 15:39] VITALS: O2SAT 92
--- NOTE | 2022-11-18 15:59 | PM.IMHP ---
H&P: HPI History of Present Illness Date/Time: 11/18/22 15:59 Chief Complaint: Abdominal pain Narrative: This is a 77-year-old female patient who resides with her . She has a history of obstructive sleep apnea hypertension depression and lung cancer. She has had a right lobectomy and COPD with chronic oxygen 2-3 L at home. The patient has chronic abdominal pain she does see a GI specialist and the last time she saw her GI specialist was 11/16/2022. The patient had tested positive for COVID on 10/31/2022 and was treated with Paxlovid. The patient was also feeling short of breath. The patient stated that she is always low on potassium. Patient's potassium level was found to be 1.7. Troponin was elevated to 160.3. As per [place] lab value. Her WBCs are 12.9. Her creatinine was 1.7 with a baseline summer between 1.2-1.66. [facility] attempted to give her IV potassium and the patient could not tolerated. The patient stated that it was burning severely and she could not he had all the IV solution. The patient was given p.o. potassium. The patient's CT was read as stable aneurysmal dilation of the distal descending thoracic aorta. Stable mild aneurysmal dilation of the infrarenal abdominal aorta. Cholelithiasis. She denies any nausea vomiting or diarrhea. Chest x-ray was read as probable chronic changes in the left lung including suture lines and probable chronic blunting of the right costophrenic angle. Small right pleural effusion not excluded. No definite acute abnormality seen. The patient is a direct admit from [place] S inpatient admission on the date of service of 11/18/2022. Review of Systems Review of Systems: See HPI All systems reviewed & are unremarkable except as noted in HPI and below Constitutional: Constitutional: Reports as per HPI and Reports no additional constitutional complaints Eyes: Eyes: Reports as per HPI and Reports no additional eye complaints ENT: Reports system reviewed and no additional complaints, except as documented and Reports Normal hearing present Cardiovascular: Cardiovascular: Reports no additional cardiovascular complaints Respiratory: Respiratory: Reports no additional respiratory complaints and Reports no additional respiratory complaints Gastrointestinal: Gastrointestinal: Reports as per HPI and Reports no additional gastrointestinal complaints Musculoskeletal: Musculoskeletal: Reports no additional musculoskeletal complaints Integumentary/Breasts: Skin/Breast: Reports system reviewed and no additional complaints, except as docu and Reports as per HPI Neurologic: Reports system reviewed and no additional complaints, except as documented, Reports as per HPI and Reports Normal hearing present Psychiatric: Psychiatric: Reports no additional psychiatric complaints and Reports as per HPI Endocrine: Endocrine: Reports no additional endocrine complaints Hematologic/Lymphatic: Hematologic/Lymphatic: Reports no additional hematologic/lymphatic complaints Allergic/Immunologic: Allergic/Immunologic: Reports no additional allergic/immunologic complaints [facility] Past Medical History Medical History AAA (abdominal aortic aneurysm) BMI 32.0-32.9,adult BMI 33.0-33.9,adult CAD (coronary artery disease) Cataract Cervical radiculopathy Cervicalgia Chronic low back pain Constipation COPD (chronic obstructive pulmonary disease) emphysema Depression Descending thoracic aortic aneurysm Edema Encounter for routine adult health examination with abnormal findings Erosive gastritis GERD (gastroesophageal reflux disease) History of gastric ulcer History of lung cancer History of tobacco abuse Hypersomnia Hypertension Hypoxia IBS (irritable bowel syndrome) 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
[2022-11-18 16:00] VITALS: BP 131/94; PULSE 91; PULSE 96; RESP 20; TEMP 36; O2SAT 90
[2022-11-18] MEDS: POTASSIUM CHLORIDE 20 MEQ PACKET (FOR LIQUID) 40 MEQ PO ×2 (17:09→23:35)
[2022-11-18 18:13] LABS: Magnesium 2.2 mg/dL (1.6-2.3)
[2022-11-18 18:20] LABS: Blood Urea Nitrogen 35 mg/dL (7-17); Calcium 8.4 mg/dL (8.4-10.2); Carbon Dioxide > 40 mmol/L (22-30); Chloride 81 mmol/L (98-107); Estimated CRCL calculation 28 ml/min; Estimated Glomerular Filt Rate 34; Glucose 108 mg/dL (65-110); Potassium 2.5 mmol/L (3.4-5.0); Sodium 137 mmol/L (137-145)
[2022-11-18] MEDS: PANTOPRAZOLE 40 MG TABLET BY MOUTH (18:25)
[2022-11-18] MEDS: busPIRone HCL 10 MG TABLET BY MOUTH (18:25)
[2022-11-18] MEDS: buPROPion HCL 75 MG TABLET BY MOUTH (18:25)
[2022-11-18 20:00] VITALS: BP 108/88; PULSE 112; PULSE 93; RESP 14; TEMP 37.2; O2SAT 95; O2SAT 96
[2022-11-18] MEDS: ALPRAZolam (*CRX) 0.5 MG TABLET PO (20:59)
[2022-11-18 22:22] LABS: Blood Urea Nitrogen 34 mg/dL (7-17); Calcium 8.3 mg/dL (8.4-10.2); Carbon Dioxide > 40 mmol/L (22-30); Chloride 83 mmol/L (98-107); Estimated CRCL calculation 22 ml/min; Estimated Glomerular Filt Rate 26; Glucose 169 mg/dL (65-110); Potassium 2.7 mmol/L (3.4-5.0); Sodium 136 mmol/L (137-145)
[2022-11-19] VITALS (9 sets, daily range): BP systolic 114–129; BP diastolic 47–97; PULSE 70–106; RESP 14–20; TEMP 35.9–36.6; O2SAT 92–100
[2022-11-19] MEDS: SUCRALFATE 1 GM TABLET 2 GM BY MOUTH ×2 (05:56→16:39)
[2022-11-19 06:11] LABS: Basophils Percent Auto 0.1 % (0.2-1.2); Eosinophils Percent Auto 0.2 % (0-4.4); Hematocrit 31.4 % (37.0-47.0); Hemoglobin 10.3 g/dL (12.0-15.0); Immature Granulocyte Absolute 0.07 K/mm3 (0.00-0.031); Immature Granulocyte Percent A 0.7 % (0-0.5); Lymphocytes Absolute Auto 0.87 K/mm3 (0.9-3.2); Lymphocytes Percent Auto 8.4 % (18.3-44.2); Mean Corpuscular HGB Conc 32.8 g/dl (32-36); Mean Corpuscular Hemoglobin 30.2 pg (26-34); Mean Corpuscular Volume 92.1 fl (80-100); Mean Platelet Volume 10.5 fl (7.4-10.4); Monocytes Absolute Auto 0.7 K/mm3 (0.1-0.6); Monocytes Percent Auto 6.9 % (2.6-8.5); Neutrophils Absolute Auto 8.7 K/mm3 (1.3-6.7); Neutrophils Percent Auto 83.7 % (45.5-73.1); Platelet Count Result 221 k/mm3 (150-375); Red Blood Count 3.41 M/mm3 (4.2-5.4); Red Cell Distribution Width 13.9 % (11.5-14.5); White Blood Count 10.3 K/mm3 (4.5-10.0)
[2022-11-19 06:48] LABS: Alanine Aminotransferase 38 U/L (6-35); Alkaline Phosphatase 56 U/L (38-126); Aspartate Amino Transferase 34 U/L (14-36); Bilirubin,Total 0.9 mg/dL (0.2-1.3); Blood Urea Nitrogen 36 mg/dL (7-17); Calcium 7.9 mg/dL (8.4-10.2); Carbon Dioxide > 40 mmol/L (22-30); Chloride 82 mmol/L (98-107); Estimated CRCL calculation 24 ml/min; Estimated Glomerular Filt Rate 27; Glucose 104 mg/dL (65-110); Lactic Acid Reflex 1.1 mmol/L (0.7-2.0); Potassium 2.6 mmol/L (3.4-5.0); Sodium 130 mmol/L (137-145)
[2022-11-19 07:27] LABS: Erythrocyte Sedimentation Rate 16 mm/hr (0-20)
[2022-11-19 07:52] LABS: Thyroid Stimulating Hormone Reflex 0.133 uIU/mL (0.465-4.68)
[2022-11-19] MEDS: CHOLECALCIFEROL 1,000 UNITS TABLET 2000 UNITS PO (08:16)
[2022-11-19] MEDS: CYANOCOBALAMIN 1,000 MCG TABLET 1000 MCG PO (08:16)
[2022-11-19] MEDS: ASPIRIN 81 MG ENTERIC TABLET PO (08:16)
[2022-11-19] MEDS: FERROUS SULFATE 324 MG TABLET PO ×2 (08:17→16:39)
[2022-11-19] MEDS: busPIRone HCL 10 MG TABLET BY MOUTH ×3 (08:17→16:39)
[2022-11-19] MEDS: POTASSIUM CHLORIDE 20 MEQ PACKET (FOR LIQUID) 40 MEQ PO ×3 (08:17→16:38)
[2022-11-19] MEDS: FLUTICASONE PROPIONATE 0.05% NA SPR 16 GM BTL (*BKC) 1 SPRAY NASAL (08:17)
[2022-11-19] MEDS: buPROPion HCL 75 MG TABLET BY MOUTH ×2 (08:17→16:39)
[2022-11-19] MEDS: CLOPIDOGREL BISULFATE 75 MG TABLET PO (08:17)
[2022-11-19] MEDS: KCL 40 MEQ/0.9% SOD CHL 1,000 ML 75 ML IV CONT ×2 (08:22→22:23)
[2022-11-19 08:44] LABS: Free T4 Free Thyroxine Reflex 1.75 ng/dL (0.78-2.19)
[2022-11-19] MEDS: FLUTICASONE/UMECLIDIN/VILANTER 200-62.5-25 MCG ELLIPTA 1 PUFF INHALATION (09:24)
[2022-11-19] MEDS: PANTOPRAZOLE 40 MG TABLET BY MOUTH ×2 (10:17→16:39)
[2022-11-19 11:15] LABS: Total Triiodothyronine (T3) 0.95 NG/ML (0.97-1.69)
--- NOTE | 2022-11-19 13:05 | PM.IMPN ---
Progress Note: A&P Assessment and Plan (1) Hypokalemia due to loss of potassium: Code(s): E87.6 - Hypokalemia Status: Acute (2) GERD (gastroesophageal reflux disease): Qualifiers: Esophagitis presence: esophagitis presence not specified Qualified Code(s): K21.9 - Gastro-esophageal reflux disease without esophagitis Code(s): K21.9 - Gastro-esophageal reflux disease without esophagitis Status: Acute (3) Acute renal failure: Qualifiers: Acute renal failure type: unspecified Qualified Code(s): N17.9 - Acute kidney failure, unspecified Code(s): N17.9 - Acute kidney failure, unspecified Status: Acute (4) Hypertension: Code(s): I10 - Essential (primary) hypertension Status: Acute (5) Abdominal distension: Code(s): R14.0 - Abdominal distension (gaseous) Status: Acute (6) AAA (abdominal aortic aneurysm): Qualifiers: Presence of rupture: without rupture Qualified Code(s): I71.4 - Abdominal aortic aneurysm, without rupture Code(s): I71.4 - Abdominal aortic aneurysm, without rupture Status: Acute (7) Atrial fibrillation: Code(s): I48.91 - Unspecified atrial fibrillation Status: Acute (8) Acute and chronic respiratory failure with hypoxia: Code(s): J96.21 - Acute and chronic respiratory failure with hypoxia Status: Acute Plan CRF And gentle hydration. Avoid nephrotoxic drugs. Monitor antihypertensive drugs Avoid NSAIDs. Routine CMP monitor GFR. Monitor electrolytes potassium levels. Potassium level of 1.7 critically low will replace IV and p.o. Dose antibiotics depending on creatinine clearance Routine follow-up with PCP and restorative care technician recommended Patient advice to quit smoking. Bronchodilators. Spirometry and chest x-ray 2D echo cardiac catheterization done 02/11/2022 ejection fraction 60% Coronary angiogram showed LAD lesion 80% status post angioplasty for severe coronary disease due to multiple drug allergies not on statins, Alex, beta-alyssa, Continue with aspirin and Plavix Keeping BMI less than 25. Routine exercises. Pneumoniae and flu vaccines as advised Pulmonary rehab if indicated. For disease management to follow GOLD guidelines. Screen for Vitamine D deficency. Evaluation for home O2 if saturations less than 88% on room air Aneurysm is stable continue to monitor. Monitor blood pressure abdominal pain and cholelithiasis able get ultrasound of the gallbladder Subjective Date/time seen: 11/19/22 13:05 Interval history: In seen very anxious and not sure why she is in the hospital the does complain of some abdominal pain recently seen by GI 2 days prior to admission has also been tested positive for COVID on October 31, 2022 finish her course of paxlovid. CT of the abdomen shows cholelithiasis no signs of acute cholecystitis Exam Narrative: GENERAL: Well appearing, well-nourished, non-toxic, in no acute distress. HEAD: Normocephalic, atraumatic. NECK: Supple. No adenopathy, no masses. RESPIRATORY: Airway patent, respirations nonlabored. Clear to auscultation bilaterally, no rales, rhonchi, wheezing. CARDIOVASCULAR: Regular rate and rhythm without murmurs, rubs, or gallops. Peripheral pulses 2+ and equal bilaterally. ABDOMINAL: Soft, nontender, nondistended, no hepatosplenomegaly. Normoactive BS. MUSCULOSKELETAL: no Epigastric and no hypochondrial tenderness SKIN: Warm, dry, normal color. No rashes. NEURO: A&O X3. Moves all extremities PSYCHIATRIC: Appropriate mood and affect. Normal interaction. Objective Data Vital Signs Vital Signs: Vital Signs - 24 hr 11/18/22 15:39 11/18/22 16:00 11/18/22 16:00 Temperature 36.0 C L Pulse Rate 96 91 Respiratory Rate 20 Blood Pressure 131/94 H Pulse Oximetry 92 90 Oxygen Delivery Nasal Cannula Oxygen Flow Rate 3 11/18/22 20:00 11/19/22 00:00 11/18/22 20:00 Temperature 37.2 C 36.3 C L Puls
[2022-11-19 14:47] LABS: Complement C3 88 mg/dL (88-165)
[2022-11-19 15:21] LABS: Creatine Kinase 43 U/L (30-135); Magnesium 2.2 mg/dL (1.6-2.3); Phosphorus 3.6 mg/dL (2.5-4.5)
[2022-11-19] MEDS: HYDROmorphone HCL INJ (*CRX) 1 MG/ML SYR IV PUSH (17:58)
[2022-11-19] MEDS: ALPRAZolam (*CRX) 0.5 MG TABLET PO (22:24)
[2022-11-20] VITALS (8 sets, daily range): BP systolic 109–139; BP diastolic 50–76; PULSE 56–96; RESP 18–24; TEMP 35.6–36.3; O2SAT 90–96
[2022-11-20 03:11] LABS: Hepatitis B Surface Antigen Negative (Negative)
[2022-11-20 03:16] LABS: Hepatitis B Core IgM Result Negative (Negative)
[2022-11-20 03:28] LABS: Hepatitis B Surface Anti Res Negative; Hepatitis C Virus Antibody Negative (Negative)
[2022-11-20 05:12] LABS: HIV 1/2 Ab P24 Ag Result Negative (Negative)
--- NOTE | 2022-11-20 05:14 | PC.NURSE ---
Pt has been NPO since midnight. Pt had nosebleed early in the shift. It was stopped and bubbler was offered to pt. Pt refused bubbler and requested a fan. Pt stated that she wanted pain medication so nurse pulled tramadol. Pt refused and tramadol was returned to the [facility] with Petey HSIEH as a witness. Pt has no complaint and is sleeping at this time. Will continue to monitor pt.
[2022-11-20] MEDS: busPIRone HCL 10 MG TABLET BY MOUTH ×3 (08:48→16:05)
[2022-11-20] MEDS: FLUTICASONE PROPIONATE 0.05% NA SPR 16 GM BTL (*BKC) 1 SPRAY NASAL (08:48)
[2022-11-20] MEDS: POTASSIUM CHLORIDE 20 MEQ PACKET (FOR LIQUID) 40 MEQ PO ×3 (08:48→16:06)
[2022-11-20] MEDS: FERROUS SULFATE 324 MG TABLET PO ×2 (08:48→16:05)
[2022-11-20] MEDS: buPROPion HCL 75 MG TABLET BY MOUTH ×2 (08:48→16:05)
[2022-11-20] MEDS: ASPIRIN 81 MG ENTERIC TABLET PO (08:48)
[2022-11-20] MEDS: CLOPIDOGREL BISULFATE 75 MG TABLET PO (08:48)
[2022-11-20] MEDS: PANTOPRAZOLE 40 MG TABLET BY MOUTH ×2 (08:48→16:05)
[2022-11-20] MEDS: CHOLECALCIFEROL 1,000 UNITS TABLET 2000 UNITS PO (08:48)
[2022-11-20] MEDS: CYANOCOBALAMIN 1,000 MCG TABLET 1000 MCG PO (08:48)
[2022-11-20] MEDS: FLUTICASONE/UMECLIDIN/VILANTER 200-62.5-25 MCG ELLIPTA 1 PUFF INHALATION (08:52)
[2022-11-20 08:56] LABS: Hematocrit 33.4 % (37.0-47.0); Hemoglobin 10.4 g/dL (12.0-15.0); Mean Corpuscular HGB Conc 31.1 g/dl (32-36); Mean Corpuscular Hemoglobin 30.2 pg (26-34); Mean Corpuscular Volume 97.1 fl (80-100); Mean Platelet Volume 9.9 fl (7.4-10.4); Platelet Count Result 213 k/mm3 (150-375); Red Blood Count 3.44 M/mm3 (4.2-5.4); Red Cell Distribution Width 14.5 % (11.5-14.5); White Blood Count 7.9 K/mm3 (4.5-10.0)
[2022-11-20 09:18] LABS: Alanine Aminotransferase 36 U/L (6-35); Albumin Level 3.3 g/dL (3.5-5.1); Alkaline Phosphatase 63 U/L (38-126); Aspartate Amino Transferase 34 U/L (14-36); Bilirubin,Total 0.9 mg/dL (0.2-1.3); Blood Urea Nitrogen 25 mg/dL (7-17); Calcium 8.2 mg/dL (8.4-10.2); Carbon Dioxide > 40 mmol/L (22-30); Chloride 94 mmol/L (98-107); Estimated CRCL calculation 32 ml/min; Estimated Glomerular Filt Rate 40; Glucose 101 mg/dL (65-110); Potassium 4.7 mmol/L (3.4-5.0); Sodium 134 mmol/L (137-145)
[2022-11-20] MEDS: HYDROmorphone HCL INJ (*CRX) 1 MG/ML SYR IV PUSH (09:58)
--- NOTE | 2022-11-20 11:22 | PM.IMPN ---
Progress Note: A&P Assessment and Plan (1) Hypokalemia due to loss of potassium: Code(s): E87.6 - Hypokalemia Status: Acute (2) GERD (gastroesophageal reflux disease): Qualifiers: Esophagitis presence: esophagitis presence not specified Qualified Code(s): K21.9 - Gastro-esophageal reflux disease without esophagitis Code(s): K21.9 - Gastro-esophageal reflux disease without esophagitis Status: Acute (3) Acute renal failure: Qualifiers: Acute renal failure type: unspecified Qualified Code(s): N17.9 - Acute kidney failure, unspecified Code(s): N17.9 - Acute kidney failure, unspecified Status: Acute (4) Hypertension: Code(s): I10 - Essential (primary) hypertension Status: Acute (5) Abdominal distension: Code(s): R14.0 - Abdominal distension (gaseous) Status: Acute (6) AAA (abdominal aortic aneurysm): Qualifiers: Presence of rupture: without rupture Qualified Code(s): I71.4 - Abdominal aortic aneurysm, without rupture Code(s): I71.4 - Abdominal aortic aneurysm, without rupture Status: Acute (7) Atrial fibrillation: Code(s): I48.91 - Unspecified atrial fibrillation Status: Acute (8) Acute and chronic respiratory failure with hypoxia: Code(s): J96.21 - Acute and chronic respiratory failure with hypoxia Status: Acute Plan CRF And gentle hydration. Avoid nephrotoxic drugs. Monitor antihypertensive drugs Avoid NSAIDs. Routine CMP monitor GFR. Monitor electrolytes potassium levels. Potassium level of 4.7 critically low will replace p.o. Dose antibiotics depending on creatinine clearance Routine follow-up with PCP and rn primary care recommended Patient advice to quit smoking. Bronchodilators. Spirometry and chest x-ray 2D echo cardiac catheterization done 02/11/2022 ejection fraction 60% Coronary angiogram showed LAD lesion 80% status post angioplasty for severe coronary disease due to multiple drug allergies not on statins, Alex, beta-alyssa, Continue with aspirin and Plavix Keeping BMI less than 25. Routine exercises. Pneumoniae and flu vaccines as advised Pulmonary rehab if indicated. For disease management to follow GOLD guidelines. Screen for Vitamine D deficency. Evaluation for home O2 if saturations less than 88% on room air Aneurysm is stable continue to monitor. Monitor blood pressure abdominal pain and cholelithiasis on ultrasound No acute cholecystitis Subjective Date/time seen: 11/20/22 11:22 Interval history: Patient is very anxious. Patient's IV site is out does not want any more IVs because of multiple bruises on her arm she is okay to take potassium orally still complains of vague abdominal pain which is relieved with Dilaudid. Exam Narrative: GENERAL: Well appearing, well-nourished, non-toxic, in no acute distress. HEAD: Normocephalic, atraumatic. NECK: Supple. No adenopathy, no masses. RESPIRATORY: Airway patent, respirations nonlabored. Clear to auscultation bilaterally, no rales, rhonchi, wheezing. CARDIOVASCULAR: Regular rate and rhythm without murmurs, rubs, or gallops. Peripheral pulses 2+ and equal bilaterally. ABDOMINAL: Soft, nontender, nondistended, no hepatosplenomegaly. Normoactive BS. MUSCULOSKELETAL: no Epigastric and no hypochondrial tenderness SKIN: Warm, dry, normal color. No rashes. NEURO: A&O X3. Moves all extremities PSYCHIATRIC: Appropriate mood and affect. Normal interaction. Objective Data Vital Signs Vital Signs: Vital Signs - 24 hr 11/19/22 12:00 11/19/22 12:00 11/19/22 16:00 Temperature 36.4 C Pulse Rate 85 93 86 Respiratory Rate 20 Blood Pressure 114/76 Pulse Oximetry 98 Oxygen Delivery Oxygen Flow Rate 11/19/22 16:00 11/19/22 21:01 11/19/22 21:25 Temperature 35.9 C L Pulse Rate 70 Respiratory Rate 20 Blood Pressure 123/93 H Pulse Oximetry 92 98 97 Oxygen Delivery Nasal Cannu
[2022-11-20] MEDS: ALPRAZolam (*CRX) 0.25 MG TABLET PO ×2 (13:33→19:56)
[2022-11-20] MEDS: ALBUTEROL SULFATE (*SP) AEROSOL 1 PUFF 2 PUFF INHALATION (13:48)
[2022-11-20] MEDS: SUCRALFATE 1 GM TABLET 2 GM BY MOUTH (16:05)
[2022-11-20] MEDS: traMADol HCL (*CRX) 50 MG TABLET 100 MG PO (18:46)
--- NOTE | 2022-11-20 18:53 | PC.NURSE ---
Spoke with Dr Delgado regarding patient receiving a new IV, stated he doesn't want her to receive an iv. Give her tylenol and not Dilaudid. Order for tylenol entered.
[2022-11-20] MEDS: CYCLOBENZAPRINE HCL 5 MG TABLET PO (19:56)
[2022-11-20] MEDS: BELLADONNA ALK/PHENOB ELIX 10 ML, MAG HYDROX/ALUMINUM HYD/SIMETH 30 ML, LIDOCAINE HCL 2... PO (23:33)
[2022-11-21] VITALS (8 sets, daily range): BP systolic 118–138; BP diastolic 82–109; PULSE 53–117; RESP 20–24; TEMP 35.1–36.3; O2SAT 90–94
[2022-11-21] MEDS: HYDROmorphone HCL INJ (*CRX) 1 MG/ML SYR 0.5 MG IV PUSH ×2 (00:57→04:49)
--- NOTE | 2022-11-21 01:01 | PM.EVENT ---
Event Note Event Note Event Note: S: I received several calls about the patient from her nurse this evening. The patient continues to complain of severe, diffuse abdominal pain which she has difficulties describing. She does not indicate that there was 1 particular area that is worse than another. She has not noticed any pattern as to when this pain occurs but this time she has been having symptoms for several days. She complains of significant nausea and reports having some episodes of nonbilious, nonbloody emesis though not in significant quantities. At times her stool is formed, sometimes it is small and hard, and today she has had watery dark yellow/brown colored stools. She has not noticed any blood or mucus in the stool. She denies hematemesis. She has had usual amounts of belching and flatus. She does feel as though her abdomen is somewhat bloated. She has not had fever, chills, or sweats. No chest pain. O: Chronically ill-appearing female. She does not appear toxic. Vital signs are stable. She occasionally moans in pain and seems anxious. She has only mild tenderness to deeper palpation throughout the upper abdomen, she does not grimace with palpation when distracted. Bowel sounds are slightly hypoactive. No rebound tenderness. A: Abdominal pain. P: Etiology of the abdominal pain is not entirely clear. Possible gallbladder dysfunction though CT of the abdomen and pelvis and right upper quadrant ultrasound in the last couple of days showed no evidence of cholecystitis, only cholelithiasis. With reports of watery, bile like stools today it may be prudent to obtain a HIDA scan though I am not sure that is what is causing her problems here. She may be suffering from irritable bowel syndrome. Abdominal migraine considered. I think anxiety is playing a part.
--- NOTE | 2022-11-21 01:53 | PC.NURSE ---
Pt. was in a lot of pain yelling and calling out in pain.I called hospitalist to get some pain medication nothing that I gave showed any relief of pain. Calli assessed the pt we bladder scanned her and strait cathed her with no concerning finds. pt. was then given dilaudid 0.5mg and is now more showing some relief.
[2022-11-21] MEDS: SUCRALFATE 1 GM TABLET 2 GM BY MOUTH ×2 (06:00→18:01)
[2022-11-21] MEDS: FLUTICASONE/UMECLIDIN/VILANTER 200-62.5-25 MCG ELLIPTA 1 PUFF INHALATION (08:58)
[2022-11-21] MEDS: ALBUTEROL SULFATE (*SP) AEROSOL 1 PUFF 2 PUFF INHALATION (09:17)
[2022-11-21] MEDS: ASPIRIN 81 MG ENTERIC TABLET PO (10:33)
[2022-11-21] MEDS: FERROUS SULFATE 324 MG TABLET PO ×2 (10:33→18:02)
[2022-11-21] MEDS: CYANOCOBALAMIN 1,000 MCG TABLET 1000 MCG PO (10:34)
[2022-11-21] MEDS: CLOPIDOGREL BISULFATE 75 MG TABLET PO (10:34)
[2022-11-21] MEDS: buPROPion HCL 75 MG TABLET BY MOUTH ×2 (10:34→18:01)
[2022-11-21] MEDS: POTASSIUM CHLORIDE 20 MEQ PACKET (FOR LIQUID) 40 MEQ PO ×2 (10:34→18:02)
[2022-11-21] MEDS: PANTOPRAZOLE 40 MG TABLET BY MOUTH ×2 (10:34→18:02)
[2022-11-21] MEDS: CHOLECALCIFEROL 1,000 UNITS TABLET 2000 UNITS PO (10:34)
[2022-11-21] MEDS: FLUTICASONE PROPIONATE 0.05% NA SPR 16 GM BTL (*BKC) 1 SPRAY NASAL (10:34)
[2022-11-21] MEDS: busPIRone HCL 10 MG TABLET BY MOUTH ×3 (10:34→18:01)
[2022-11-21] MEDS: ALPRAZolam (*CRX) 0.25 MG TABLET PO ×3 (10:35→18:07)
--- NOTE | 2022-11-21 10:48 | PC.NURSE ---
Patient is very anxious. Yelled at current RN saying we will not give her the pain medication dilaudid and that is the only thing that works for her! Spoke with hospitalist regarding this situation and he is aware.
--- NOTE | 2022-11-21 11:03 | PC.NURSE ---
RN was in room with Hospitalist Shaina. Patient stating she will not leave if discharged because she needs dilaudid and cannot go home. If we discharge her she will go to [facility] so she can recieve dilaudid. Patient is stating she is not in pain at this time but in 10 minutes she will be. Patient is on phone with now screaming for him to come up here so she can get dilaudid. Spoke with hospitalist and GI consult to be put in.
--- NOTE | 2022-11-21 11:50 | PM.IMPN ---
Progress Note: A&P Assessment and Plan (1) Hypokalemia due to loss of potassium: Code(s): E87.6 - Hypokalemia Status: Acute (2) GERD (gastroesophageal reflux disease): Qualifiers: Esophagitis presence: esophagitis presence not specified Qualified Code(s): K21.9 - Gastro-esophageal reflux disease without esophagitis Code(s): K21.9 - Gastro-esophageal reflux disease without esophagitis Status: Acute (3) Acute renal failure: Qualifiers: Acute renal failure type: unspecified Qualified Code(s): N17.9 - Acute kidney failure, unspecified Code(s): N17.9 - Acute kidney failure, unspecified Status: Acute (4) Hypertension: Code(s): I10 - Essential (primary) hypertension Status: Acute (5) Abdominal distension: Code(s): R14.0 - Abdominal distension (gaseous) Status: Acute (6) AAA (abdominal aortic aneurysm): Qualifiers: Presence of rupture: without rupture Qualified Code(s): I71.4 - Abdominal aortic aneurysm, without rupture Code(s): I71.4 - Abdominal aortic aneurysm, without rupture Status: Acute (7) Atrial fibrillation: Code(s): I48.91 - Unspecified atrial fibrillation Status: Acute (8) Acute and chronic respiratory failure with hypoxia: Code(s): J96.21 - Acute and chronic respiratory failure with hypoxia Status: Acute Plan CRF And gentle hydration. Avoid nephrotoxic drugs. Monitor antihypertensive drugs Avoid NSAIDs. Routine CMP monitor GFR. Monitor electrolytes potassium levels. Potassium level of 4.7 was critically low will replace p.o. 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 Bronchodilators. Spirometry and chest x-ray 2D echo cardiac catheterization done 02/11/2022 ejection fraction 60% Coronary angiogram showed LAD lesion 80% status post angioplasty for severe coronary disease due to multiple drug allergies not on statins, Alex, beta-alyssa, Continue with aspirin and Plavix Keeping BMI less than 25. Routine exercises. Pneumoniae and flu vaccines as advised Pulmonary rehab if indicated. For disease management to follow GOLD guidelines. Screen for Vitamine D deficency. Evaluation for home O2 if saturations less than 88% on room air Aneurysm is stable continue to monitor. Monitor blood pressure abdominal pain and cholelithiasis on ultrasound No acute cholecystitis Demanding IV Dilaudid which was denied by the MD. spoke to patient family and the nursing staff in detail will get a GI consult it appears that patient is drug-seeking. Very anxious will give Ativan IV x1 Threatening to leave AMA if narcotics given Subjective Date/time seen: 11/21/22 11:50 Interval history: Patient still complaining of abdominal pain demanding IV Dilaudid refuses to take IV morphine refused to take tramadol orally refused to take [place] orally. Very anxious dividing to leave AMA spoke to the patient try to calm her down also spoke to patient's on the phone. All the findings have been discussed with patient in detail ultrasound of the gallbladder was negative CT of the abdomen is negative no known pathology for abdominal pain patient appears to be seeking narcotics IV only. Exam Narrative: GENERAL: Well appearing, well-nourished, non-toxic, in no acute distress. HEAD: Normocephalic, atraumatic. NECK: Supple. No adenopathy, no masses. RESPIRATORY: Airway patent, respirations nonlabored. Clear to auscultation bilaterally, no rales, rhonchi, wheezing. CARDIOVASCULAR: Regular rate and rhythm without murmurs, rubs, or gallops. Peripheral pulses 2+ and equal bilaterally. ABDOMINAL: Soft, nontender, nondistended, no hepatosplenomegaly. Normoactive BS. MUSCULOSKELETAL: no Epigastric and no hypochondrial tenderness SKIN: Warm, dry, normal color. No rashes. NEURO: A&O X3. Moves all extremitie
--- NOTE | 2022-11-21 13:02 | PC.NURSE ---
Patient refusing to take Tylenol and will only take one Tramadol not two. Patient is making threats at nurse to leave and go to [facility].
[2022-11-21] MEDS: traMADol HCL (*CRX) 50 MG TABLET 100 MG PO ×2 (13:06→19:39)
[2022-11-21] MEDS: ONDANSETRON INJ 4 MG/2 ML VIAL IV PUSH (18:08)
[2022-11-21] MEDS: CYCLOBENZAPRINE HCL 5 MG TABLET PO (19:39)
[2022-11-21] MEDS: hydrALAZINE HCL 20 MG/ML VIAL 10 MG IV PUSH (20:25)
[2022-11-21] MEDS: ACETAMINOPHEN 500 MG TABLET 1000 MG PO (21:10)
[2022-11-22 00:15] VITALS: BP 154/62; PULSE 113; RESP 22; TEMP 36.1; O2SAT 99
[2022-11-22] MEDS: SUCRALFATE 1 GM TABLET 2 GM BY MOUTH ×2 (06:37→16:45)
[2022-11-22] MEDS: traMADol HCL (*CRX) 50 MG TABLET 100 MG PO ×2 (06:37→21:39)
[2022-11-22 07:58] LABS: Hematocrit 38.2 % (37.0-47.0); Hemoglobin 11.6 g/dL (12.0-15.0); Mean Corpuscular HGB Conc 30.4 g/dl (32-36); Mean Corpuscular Hemoglobin 30.3 pg (26-34); Mean Corpuscular Volume 99.7 fl (80-100); Mean Platelet Volume 10.8 fl (7.4-10.4); Platelet Count Result 260 k/mm3 (150-375); Red Blood Count 3.83 M/mm3 (4.2-5.4); White Blood Count 21.2 K/mm3 (4.5-10.0)
[2022-11-22 08:00] VITALS: BP 147/99; PULSE 57; RESP 20; TEMP 36.4; O2SAT 96; O2SAT 97
[2022-11-22] MEDS: ALBUTEROL SULFATE (*SP) AEROSOL 1 PUFF 2 PUFF INHALATION ×2 (08:26→15:22)
[2022-11-22] MEDS: FLUTICASONE/UMECLIDIN/VILANTER 200-62.5-25 MCG ELLIPTA 1 PUFF INHALATION (08:26)
[2022-11-22 08:27] VITALS: RESP 20
[2022-11-22] MEDS: ONDANSETRON INJ 4 MG/2 ML VIAL IV PUSH ×2 (08:49→16:47)
[2022-11-22] MEDS: CYCLOBENZAPRINE HCL 5 MG TABLET PO ×2 (08:49→21:39)
[2022-11-22] MEDS: buPROPion HCL 75 MG TABLET BY MOUTH (08:55)
[2022-11-22] MEDS: CYANOCOBALAMIN 1,000 MCG TABLET 1000 MCG PO (08:55)
[2022-11-22] MEDS: busPIRone HCL 10 MG TABLET BY MOUTH ×2 (08:55→14:10)
[2022-11-22] MEDS: PANTOPRAZOLE 40 MG TABLET BY MOUTH (08:55)
[2022-11-22] MEDS: CLOPIDOGREL BISULFATE 75 MG TABLET PO (08:56)
[2022-11-22] MEDS: POTASSIUM CHLORIDE 20 MEQ PACKET (FOR LIQUID) 40 MEQ PO (08:56)
[2022-11-22] MEDS: FERROUS SULFATE 324 MG TABLET PO (08:56)
[2022-11-22] MEDS: CHOLECALCIFEROL 1,000 UNITS TABLET 2000 UNITS PO (08:57)
[2022-11-22] MEDS: FLUTICASONE PROPIONATE 0.05% NA SPR 16 GM BTL (*BKC) 1 SPRAY NASAL (08:57)
[2022-11-22] MEDS: ASPIRIN 81 MG ENTERIC TABLET PO (08:57)
[2022-11-22] MEDS: ALPRAZolam (*CRX) 0.25 MG TABLET PO ×2 (09:21→16:47)
[2022-11-22 11:43] LABS: Alanine Aminotransferase 92 U/L (6-35); Albumin Level 3.8 g/dL (3.5-5.1); Alkaline Phosphatase 70 U/L (38-126); Anion Gap 5 mmol/L (8-16); Aspartate Amino Transferase 68 U/L (14-36); Bilirubin,Total 1.6 mg/dL (0.2-1.3); Blood Urea Nitrogen 36 mg/dL (7-17); Carbon Dioxide 30 mmol/L (22-30); Chloride 95 mmol/L (98-107); Estimated CRCL calculation 28 ml/min; Estimated Glomerular Filt Rate 34; Glucose 92 mg/dL (65-110); Potassium 6.6 mmol/L (3.4-5.0); Sodium 130 mmol/L (137-145)
--- NOTE | 2022-11-22 12:32 | PM.IMPN ---
Progress Note: A&P Assessment and Plan (1) Hypokalemia due to loss of potassium: Code(s): E87.6 - Hypokalemia Status: Acute Assessment and Plan: pt is hyperkalemic today potassium is over 6 pt has been on potassium supplements (2) GERD (gastroesophageal reflux disease): Qualifiers: Esophagitis presence: esophagitis presence not specified Qualified Code(s): K21.9 - Gastro-esophageal reflux disease without esophagitis Code(s): K21.9 - Gastro-esophageal reflux disease without esophagitis Status: Acute Assessment and Plan: pt is on protonix and sucralfate pt to complains of gerd complaints consult gi pt may need scopes (3) Acute renal failure: Qualifiers: Acute renal failure type: unspecified Qualified Code(s): N17.9 - Acute kidney failure, unspecified Code(s): N17.9 - Acute kidney failure, unspecified Status: Acute Assessment and Plan: Ld creat is 1.5 And gentle hydration. Avoid nephrotoxic drugs. Monitor antihypertensive drugs Avoid NSaids (4) Hypertension: Code(s): I10 - Essential (primary) hypertension Status: Acute Assessment and Plan: bp chronic and stable (5) Abdominal distension: Code(s): R14.0 - Abdominal distension (gaseous) Status: Acute Assessment and Plan: Aneurysm is stable continue to monitor. abdominal pain and cholelithiasis on ultrasound No acute cholecystitis order cdiff toxin pt complains of loose stool and abdominal pains (6) AAA (abdominal aortic aneurysm): Qualifiers: Presence of rupture: without rupture Qualified Code(s): I71.4 - Abdominal aortic aneurysm, without rupture Code(s): I71.4 - Abdominal aortic aneurysm, without rupture Status: Acute Assessment and Plan: Aneurysm is stable continue to monitor. abdominal pain and cholelithiasis on ultrasound No acute cholecystitis (7) Atrial fibrillation: Code(s): I48.91 - Unspecified atrial fibrillation Status: Acute Assessment and Plan: 2D echo cardiac catheterization done 02/11/2022 ejection fraction 60% Coronary angiogram showed LAD lesion 80% status post angioplasty for severe coronary disease due to multiple drug allergies not on statins, Alex, beta-layssa, Continue with aspirin and Plavix (8) Acute and chronic respiratory failure with hypoxia: Code(s): J96.21 - Acute and chronic respiratory failure with hypoxia Status: Acute Assessment and Plan: resolved Subjective Date/time seen: 11/22/22 12:32 pt admitted with abdominal pain, hypokalemia history of aaa, ld Possible gallbladder dysfunction though CT of the abdomen and pelvis and right upper quadrant ultrasound in the last couple of days showed no evidence of cholecystitis, only cholelithiasis. pt complains of nausea and loose stools I have ordered Cdiff stool test and Gi consultation today pt potassium is over 6 today has been receiving potassium supplementation here Review of Systems Review of Systems: nausea abdominal pains and loose stools Exam Narrative: GENERAL: Well appearing, well-nourished, non-toxic, in no acute distress. HEAD: Normocephalic, atraumatic. NECK: Supple. No adenopathy, no masses. RESPIRATORY: Airway patent, respirations nonlabored. Clear to auscultation bilaterally, no rales, rhonchi, wheezing. CARDIOVASCULAR: Regular rate and rhythm without murmurs, rubs, or gallops. Peripheral pulses 2+ and equal bilaterally. ABDOMINAL: Soft, nontender, nondistended, no hepatosplenomegaly. Normoactive BS. MUSCULOSKELETAL: no Epigastric and no hypochondrial tenderness SKIN: Warm, dry, normal color. No rashes. NEURO: A&O X3. Moves all extremities PSYCHIATRIC: Appropriate mood and affect. Normal interaction. Objective Data Vital Signs Vital Signs: Vital Signs - 24 hr 11/21/22 16:00 11/21/22 20:00 11/22/22 00:15 Temperature 36.3 C L 36.1 C L 36.1 C L Pu
--- NOTE | 2022-11-22 15:12 | WPDGICN ---
Assessment and Plan Assessment and plan (1) Abdominal distension: Code(s): R14.0 - Abdominal distension (gaseous) Status: Acute Assessment and Plan: Her main complaint is abdominal distension and discomfort.? When asked where she runs her hands across and around the entire abdomen.? She attributes this to her ?ulcer? I explained her that she does not have an ulcer.? Last year on endoscopy we found some gastritis.? She then said that that is what she is feeling.? I told her that she would not have pain throughout the abdomen or distention throughout the abdomen due to gastritis.? (2) Abdominal pain: Code(s): R10.9 - Unspecified abdominal pain Status: Acute Assessment and Plan: She has been on pantoprazole 40 mg twice a day and Carafate for several months.? I told her that with that combination she would not have an ulcer.? She said that she was told that she has had ulcer for the past 2 years.? She does not use NSAIDs but she does take a coated 81 mg aspirin each morning she she she has had no significant change in bowel habits but they are erratic.? She has had red blood her stools once or twice.? She said that she thought that would be from her bleeding ulcers. given the lack of a good explanation for symptoms, I will schedule her for EGD to be done tomorrow she is distraught that opioids have been discontinued other than oral tramadol which she states does not do me any good (3) Edema: Code(s): R60.9 - Edema, unspecified Status: Acute Assessment and Plan: last week in the office, She wanted to show me several times however her legs are uncomfortable and tight because of all the fluid she is retaining.? I told her that I do not think that she is retaining fluid in her abdomen.? She was seen a which she can do about her legs stating that nobody seems to be helping her with that. she has been on diuretics. Unfortunately she has had fluctuations or potassium at times being too low in today being too high. (4) Thoracic aortic aneurysm without rupture: Code(s): I71.20 - Thoracic aortic aneurysm, without rupture, unspecified Status: Acute Assessment and Plan: This is stable but she is concerned ab (5) COPD (chronic obstructive pulmonary disease): Qualifiers: COPD type: unspecified COPD Qualified Code(s): J44.9 - Chronic obstructive pulmonary disease, unspecified Code(s): J44.9 - Chronic obstructive pulmonary disease, unspecified Status: Acute Assessment and Plan: out it. She is tachypneic and dyspneic and cannot complete a sentence without stopping to catch her breath. (6) Hyperkalemia: Code(s): E87.5 - Hyperkalemia Status: Acute Assessment and Plan: Today her potassium was 6.6 (7) Erosive gastritis: Code(s): K29.60 - Other gastritis without bleeding Status: Acute Assessment and Plan: she is under the impression that she has an ulcer. I told her that to try to investigate her symptoms I will perform EGD tomorrow (8) Transaminitis: Code(s): R74.01 - Elevation of levels of liver transaminase levels Status: Acute Assessment and Plan: today her bilirubin is up to 1.6, AST doubled at 68 and ALT up to92. This may be due to chronic passive congestion. I doubt that she has significant chronic liver disease as these parameters were normal just a few days ago. We will follow and trend these while she is here GI Consult Note Consult date/time: 11/22/22 15:12 HPI: Hetal Stone is a 77 year old female who was admitted because of abdominal pain on transfer from [facility] last week. I had seen her Tuesday in the office with complaints of severe abdominal pain due to ulcers . I had explained to her that time that her last endoscopy only showed some mild gastritis. Her complaint was that her abdomen is large in tight. I performed a KUB that day which was negati
[2022-11-22 15:23] VITALS: RESP 20
[2022-11-22 17:02] LABS: Albumin 2.9 g/dL (3.8-4.8); Alpha 1 Globulin 0.3 g/dL (0.2-0.3); Alpha 2 Globulin 0.6 g/dL (0.5-0.9); Beta 1 Globulin 0.3 g/dL (0.4-0.6); Gamma Globulin 0.5 g/dL (0.8-1.7); Protein, Total 4.9 g/dL (6.1-8.1)
[2022-11-22 20:00] VITALS: O2SAT 93
[2022-11-22 20:56] LABS: SM Antibody <1.0; SM/RNP Antibody <1.0
[2022-11-22] MEDS: ACETAMINOPHEN 500 MG TABLET 1000 MG PO (21:38)
[2022-11-22 22:11] VITALS: BP 165/76; PULSE 110; RESP 22; TEMP 36.1; O2SAT 93
[2022-11-23] VITALS (10 sets, daily range): BP systolic 116–144; BP diastolic 55–92; PULSE 73–112; RESP 16–22; TEMP 36.1–36.3; O2SAT 91–100
[2022-11-23] MEDS: ALBUTEROL SULFATE (*SP) AEROSOL 1 PUFF 2 PUFF INHALATION (02:18)
[2022-11-23] MEDS: SUCRALFATE 1 GM TABLET 2 GM BY MOUTH ×2 (06:45→16:31)
[2022-11-23 06:48] LABS: Anion Gap 1 mmol/L (8-16); Blood Urea Nitrogen 34 mg/dL (7-17); Calcium 8.9 mg/dL (8.4-10.2); Carbon Dioxide 35 mmol/L (22-30); Chloride 94 mmol/L (98-107); Estimated CRCL calculation 28 ml/min; Estimated Glomerular Filt Rate 34; Glucose 64 mg/dL (65-110); Potassium 5.2 mmol/L (3.4-5.0); Sodium 130 mmol/L (137-145)
[2022-11-23] MEDS: busPIRone HCL 10 MG TABLET BY MOUTH ×3 (08:36→16:32)
[2022-11-23] MEDS: FLUTICASONE PROPIONATE 0.05% NA SPR 16 GM BTL (*BKC) 1 SPRAY NASAL (08:37)
[2022-11-23] MEDS: buPROPion HCL 75 MG TABLET BY MOUTH ×2 (08:37→16:32)
[2022-11-23] MEDS: FERROUS SULFATE 324 MG TABLET PO ×2 (08:37→16:31)
[2022-11-23] MEDS: CHOLECALCIFEROL 1,000 UNITS TABLET 2000 UNITS PO (08:37)
[2022-11-23] MEDS: CYANOCOBALAMIN 1,000 MCG TABLET 1000 MCG PO (08:37)
[2022-11-23] MEDS: ASPIRIN 81 MG ENTERIC TABLET PO (08:37)
[2022-11-23] MEDS: CLOPIDOGREL BISULFATE 75 MG TABLET PO (08:37)
[2022-11-23] MEDS: ALPRAZolam (*CRX) 0.25 MG TABLET PO ×2 (08:42→18:42)
--- NOTE | 2022-11-23 09:04 | WPDANESEPPF ---
Anes - Initial Pre Proc Eval Procedure: Operation Date: 11/23/22 11:00 Proposed Procedures p Esophagogastroduodenoscopy - Yossi Yousif MD Date/Time: 11/23/22 09:04 Surgeon: Anjum Garcia MD Pre Op Diagnosis: abdominal pain Patient Data Age: 77 Gender: F Height: 1.61 m Weight: 77 kg Last Vital Signs Temp 36.1 C L 11/23/22 06:06 Pulse 73 11/23/22 06:06 Resp 22 H 11/23/22 06:06 BP 144/71 H 11/23/22 06:06 Pulse Ox 91 11/23/22 06:06 O2 Del Method Nasal Cannula 11/22/22 20:00 O2 Flow Rate 3 11/22/22 20:00 Allergies Allergy/AdvReac Type Severity Reaction Status Date / Time fluticasone Allergy Unknown Asthma Verified 11/23/22 09:03 pravastatin Allergy Unknown leg cramps Verified 11/23/22 09:03 salmeterol [Advair Diskus] Allergy Unknown Asthma Verified 11/23/22 09:03 atorvastatin AdvReac Unknown leg cramps Verified 11/23/22 09:03 ezetimibe AdvReac Unknown drowsiness Verified 11/23/22 09:03 rosuvastatin AdvReac Unknown muscle Verified 11/23/22 09:03 cramps hydrocodone AdvReac Vomiting Verified 11/23/22 09:03 melatonin AdvReac Nausea Verified 11/23/22 09:03 Home Medications Medication Instructions Recorded Confirmed Type aspirin 81 mg tablet,delayed 81 mg PO DAILY 06/11/20 11/18/22 History release (Adult Low Dose Aspirin) cyclobenzaprine 5 mg tablet 5 mg PO TID PRN muscle spasm #30 04/19/22 11/18/22 Rx tabs fluticasone propionate 50 1 spray intranasal DAILY 04/30/22 11/18/22 History mcg/actuation nasal spray,suspension clopidogrel 75 mg tablet 75 mg PO DAILY 05/05/22 11/18/22 History cyanocobalamin (vitamin B-12) 1,000 mcg PO DAILY 05/05/22 11/18/22 History 1,000 mcg tablet buspirone 10 mg tablet See Rx Instructions .Route 08/09/22 11/18/22 Rx .COMPLEX #90 tabs benzonatate 200 mg capsule 200 mg PO TID PRN cough #30 caps 08/12/22 11/18/22 Rx pantoprazole 40 mg tablet,delayed See Rx Instructions .Route 08/16/22 11/18/22 Rx release .COMPLEX #180 tabs cholecalciferol (vitamin D3) 50 50 mcg PO DAILY 08/23/22 11/18/22 History mcg (2,000 unit) capsule fluticasone fur. 200 mcg-umeclid See Rx Instructions .Route 08/23/22 11/18/22 Rx 62.5 mcg-vilant 25 mcg .COMPLEX #60 ea inhalat.powder (Trelegy Ellipta) potassium chloride 20 mEq See Rx Instructions .Route 08/23/22 11/18/22 Rx tablet,extended release .COMPLEX #30 tabs ferrous sulfate 325 mg (65 mg 325 mg PO BIDWM #60 tabs 08/24/22 11/18/22 Rx iron) tablet losartan 100 mg tablet See Rx Instructions .Route 08/27/22 11/18/22 Rx .COMPLEX #90 tabs ERASTO thigh high hose #4 ea 09/15/22 11/18/22 Rx furosemide 80 mg tablet 80 mg PO QAM #90 tabs 09/15/22 11/18/22 Rx metolazone 2.5 mg tablet 2.5 mg PO .3x/week #45 tabs 09/15/22 11/18/22 Rx benzocaine 15 mg lozenges 15 mg mucous membrane Q3H PRN 09/28/22 11/18/22 Rx mouth irritation #18 ea bupropion HCl 75 mg tablet See Rx Instructions .Route 09/30/22 11/18/22 Rx .COMPLEX #180 tabs alprazolam 0.5 mg tablet 0.5 mg PO TID PRN anxiety #90 tabs 10/04/22 11/18/22 Rx tramadol 50 mg tablet 100 mg PO Q6H PRN pain #60 tabs 10/04/22 11/18/22 Rx albuterol sulfate 90 mcg/actuation See Rx Instructions .Route 10/18/22 11/18/22 Rx aerosol inhaler .COMPLEX #18 ea roflumilast 250 mcg tablet 250 mcg PO DAILY #28 tabs 10/18/22 11/18/22 Rx (Daliresp) sucralfate 1 gram tablet (Carafate) See Rx Instructions .Route 11/03/22 11/18/22 Rx .COMPLEX #60 tabs dexamethasone 4 mg tablet See Rx Instructions .Route 11/06/22 11/18/22 Rx .COMPLEX #21 tabs Laboratory Tests 11/19/22 11/19/22 11/19/22 06:01 06:01 06:01 Sodium Potassium Chloride Carbon Dioxide Anion Gap BUN Creatinine Estim Creat Clear Calc Estimated GFR Glucose Serum Osmolality 287 mOsm/kg mOsm/kg (278-305) Calcium Total Bilirubin
[2022-11-23] MEDS: LACTATED RINGERS 1,000 ML 150 ML IV CONT (09:19)
[2022-11-23] MEDS: BENZOCAINE (*SP) 60 ML SPRAY CAN (HURRICAINE) 1 SPRAY MUCOUS MEM (09:20)
--- NOTE | 2022-11-23 11:52 | PM.IMPN ---
Progress Note: A&P Assessment and Plan (1) Hypokalemia due to loss of potassium: Code(s): E87.6 - Hypokalemia Status: Acute Assessment and Plan: pt is hyperkalemic today potassium is over 5 pt has been on potassium supplements (2) GERD (gastroesophageal reflux disease): Qualifiers: Esophagitis presence: esophagitis presence not specified Qualified Code(s): K21.9 - Gastro-esophageal reflux disease without esophagitis Code(s): K21.9 - Gastro-esophageal reflux disease without esophagitis Status: Acute Assessment and Plan: pt is on protonix and sucralfate pt to complains of gerd complaints consult gi pt going for egd today (3) Acute renal failure: Qualifiers: Acute renal failure type: unspecified Qualified Code(s): N17.9 - Acute kidney failure, unspecified Code(s): N17.9 - Acute kidney failure, unspecified Status: Acute Assessment and Plan: Ld creat is 1.5 And gentle hydration. Avoid nephrotoxic drugs. Monitor antihypertensive drugs Avoid NSaids (4) Hypertension: Code(s): I10 - Essential (primary) hypertension Status: Acute Assessment and Plan: bp chronic and stable (5) Abdominal distension: Code(s): R14.0 - Abdominal distension (gaseous) Status: Acute Assessment and Plan: Aneurysm is stable continue to monitor. abdominal pain and cholelithiasis on ultrasound No acute cholecystitis I did order cdiff toxin pt complains of loose stool and abdominal pains Cdiff can be cancelled stools are not so watery (6) AAA (abdominal aortic aneurysm): Qualifiers: Presence of rupture: without rupture Qualified Code(s): I71.4 - Abdominal aortic aneurysm, without rupture Code(s): I71.4 - Abdominal aortic aneurysm, without rupture Status: Acute Assessment and Plan: Aneurysm is stable continue to monitor. abdominal pain and cholelithiasis on ultrasound No acute cholecystitis (7) Atrial fibrillation: Code(s): I48.91 - Unspecified atrial fibrillation Status: Acute Assessment and Plan: 2D echo cardiac catheterization done 02/11/2022 ejection fraction 60% Coronary angiogram showed LAD lesion 80% status post angioplasty for severe coronary disease due to multiple drug allergies not on statins, Alex, beta-alyssa, Continue with aspirin and Plavix (8) Acute and chronic respiratory failure with hypoxia: Code(s): J96.21 - Acute and chronic respiratory failure with hypoxia Status: Acute Assessment and Plan: Resolved pt has history of copd Subjective Date/time seen: 11/23/22 11:52 Pt admitted with abdominal pain, pt has history of hypokalemia history of aaa, ld, copd Possible gallbladder dysfunction though CT of the abdomen and pelvis and right upper quadrant ultrasound in the last couple of days showed no evidence of cholecystitis, only cholelithiasis. Pt seen by GI going for EGD Pt has history of gastritis and possible ulcer Review of Systems Review of Systems: Pt complains of nausea and loose stools All systems reviewed & are unremarkable except as noted in HPI and below Exam Narrative: GENERAL: Well appearing, well-nourished, non-toxic, in no acute distress. HEAD: Normocephalic, atraumatic. NECK: Supple. No adenopathy, no masses. RESPIRATORY: Airway patent, respirations nonlabored. Clear to auscultation bilaterally, no rales, rhonchi, wheezing. CARDIOVASCULAR: Regular rate and rhythm without murmurs, rubs, or gallops. Peripheral pulses 2+ and equal bilaterally. ABDOMINAL: Soft, nontender, nondistended, no hepatosplenomegaly. Normoactive BS. MUSCULOSKELETAL: no Epigastric and no hypochondrial tenderness SKIN: Warm, dry, normal color. No rashes. NEURO: A&O X3. Moves all extremities PSYCHIATRIC: Appropriate mood and affect. Normal interaction. Objective Data Vital Signs Vital Signs: Vital Signs - 24 hr 11/22/22 15
[2022-11-23] MEDS: SODIUM ZIRCONIUM CYCLOSILICATE 10 GM POWD.PACK PO (12:14)
[2022-11-23 15:15] LABS: Glucose Point of Care 37 mg/dl (65-105)
[2022-11-23] MEDS: traMADol HCL (*CRX) 50 MG TABLET 100 MG PO (16:36)
[2022-11-23 19:40] LABS: Anion Gap 3 mmol/L (8-16); Blood Urea Nitrogen 31 mg/dL (7-17); Calcium 8.9 mg/dL (8.4-10.2); Carbon Dioxide 34 mmol/L (22-30); Chloride 94 mmol/L (98-107); Estimated CRCL calculation 30 ml/min; Estimated Glomerular Filt Rate 36; Glucose 62 mg/dL (65-110); Potassium 4.6 mmol/L (3.4-5.0); Sodium 131 mmol/L (137-145)
[2022-11-23 19:46] LABS: Anti Streptolysin O Screen <50 IU/mL (<200)
[2022-11-23] MEDS: CYCLOBENZAPRINE HCL 5 MG TABLET PO (20:10)
[2022-11-23] MEDS: ACETAMINOPHEN 500 MG TABLET 1000 MG PO (20:10)
[2022-11-24] VITALS (7 sets, daily range): BP systolic 114–147; BP diastolic 54–80; PULSE 53–110; RESP 12–18; TEMP 35.8–36.2; O2SAT 81–100; BMI 29.5
[2022-11-24] MEDS: SUCRALFATE 1 GM TABLET 2 GM BY MOUTH ×2 (05:30→16:46)
--- NOTE | 2022-11-24 06:17 | WPDGIPROGNO ---
Progress Note: A&P Assessment and Plan (1) Abdominal distension: Code(s): R14.0 - Abdominal distension (gaseous) Status: Acute Assessment and Plan: Her main complaint is abdominal distension and discomfort.? When asked where she runs her hands across and around the entire abdomen.? She attributes this to her ?ulcer? I explained her that she does not have an ulcer.? Last year on endoscopy we found some gastritis.? She then said that that is what she is feeling.? I told her that she would not have pain throughout the abdomen or distention throughout the abdomen due to gastritis.? her abdomen is actually soft today. She is not complaining as I palpate her abdomen during conversation. (2) Abdominal pain: Code(s): R10.9 - Unspecified abdominal pain Status: Acute Assessment and Plan: She has been on pantoprazole 40 mg twice a day and Carafate for several months.? I told her that with that combination she would not have an ulcer.? She said that she was told that she has had ulcer for the past 2 years.? She does not use NSAIDs but she does take a coated 81 mg aspirin each morning she she she has had no significant change in bowel habits but they are erratic.? She has had red blood her stools once or twice.? She said that she thought that would be from her bleeding ulcers. given the lack of a good explanation for symptoms, I will schedule her for EGD to be done tomorrow she is distraught that opioids have been discontinued other than oral tramadol which she states does not do me any good 11/24/2022 she is not complaining of abdominal pain this morning. All of her complaints center around her extremities and breathing. I discussed with her the results of the EGD yesterday which was basically unremarkable. H pylori was negative (3) Edema: Code(s): R60.9 - Edema, unspecified Status: Acute Assessment and Plan: last week in the office, She wanted to show me several times however her legs are uncomfortable and tight because of all the fluid she is retaining.? I told her that I do not think that she is retaining fluid in her abdomen.? She was seen a which she can do about her legs stating that nobody seems to be helping her with that. she has been on diuretics. Unfortunately she has had fluctuations or potassium at times being too low in today being too high. (4) COPD (chronic obstructive pulmonary disease): Qualifiers: COPD type: unspecified COPD Qualified Code(s): J44.9 - Chronic obstructive pulmonary disease, unspecified Code(s): J44.9 - Chronic obstructive pulmonary disease, unspecified Status: Acute Assessment and Plan: She is tachypneic and dyspneic and cannot complete a sentence without stopping to catch her breath. she states that she had not been on home oxygen until after her coronary stents were placed little over a year ago. 11/24/2022 she was in a talkative but not complaining mood today. Therefore it engage her in conversation for a while, talking about her past history, coronary disease, how she quit smoking and her can discern that her lungs are getting worse despite the fact she no longer smokes. (5) Hyperkalemia: Code(s): E87.5 - Hyperkalemia Status: Acute Assessment and Plan: Her potassium had been as high as 6.6 she expresses frustration that her electrolytes especially potassium jump up and down. (6) Erosive gastritis: Code(s): K29.60 - Other gastritis without bleeding Status: Acute Assessment and Plan: she is under the impression that she has an ulcer. I told her that to try to investigate her symptoms I will perform EGD tomorrow 11/24/2022 discussed results of her EGD done yesterday by Dr. Somers. No ulcer and no significant gastritis or other source of gastrointestinal/abdominal symptoms (7) Transaminitis: Code(s): R74.01 - Elevation of levels of liver transaminase levels
[2022-11-24 07:15] LABS: Basophils Percent Auto 0.2 % (0.2-1.2); Eosinophils Absolute Auto 0.1 K/mm3 (0-0.3); Eosinophils Percent Auto 0.9 % (0-4.4); Hematocrit 30.5 % (37.0-47.0); Hemoglobin 9.5 g/dL (12.0-15.0); Immature Granulocyte Absolute 0.04 K/mm3 (0.00-0.031); Immature Granulocyte Percent A 0.7 % (0-0.5); Lymphocytes Absolute Auto 0.55 K/mm3 (0.9-3.2); Mean Corpuscular HGB Conc 31.1 g/dl (32-36); Mean Corpuscular Hemoglobin 30.4 pg (26-34); Mean Corpuscular Volume 97.8 fl (80-100); Mean Platelet Volume 10.3 fl (7.4-10.4); Monocytes Absolute Auto 0.4 K/mm3 (0.1-0.6); Monocytes Percent Auto 6.3 % (2.6-8.5); Neutrophils Absolute Auto 4.5 K/mm3 (1.3-6.7); Neutrophils Percent Auto 81.9 % (45.5-73.1); Platelet Count Result 192 k/mm3 (150-375); Red Blood Count 3.12 M/mm3 (4.2-5.4); Red Cell Distribution Width 15.5 % (11.5-14.5); White Blood Count 5.5 K/mm3 (4.5-10.0)
--- NOTE | 2022-11-24 07:42 | P.PNAN_ITS ---
Anes - Prog Note Post-Op Date/Time: 11/24/22 07:42 Cardiovascular status: normal Respiratory status: normal Airway patency: baseline Mental status: baseline Post-Op hydration status: normal Vital Signs: Last Vital Signs Temp 97.2 F L 11/24/22 06:00 Pulse 94 11/24/22 06:00 Resp 18 11/24/22 06:00 BP 128/65 11/24/22 06:00 Pulse Ox 93 11/24/22 06:00 O2 Del Method Nasal Cannula 11/23/22 20:00 O2 Flow Rate 3 11/23/22 20:00 Pain Score (VAS): 0 I/O: Intake & Output 11/23/22 11/23/22 11/24/22 15:59 23:59 07:59 Intake Total 50 890 Output Total 1150 200 Balance 50 -260 -200 Laboratory Tests 11/24/22 06:59 11/23/22 18:53 11/19/22 11/23/22 11/23/22 06:01 15:09 18:53 WBC RBC Hgb Hct MCV MCH MCHC RDW Plt Count MPV Immature Gran % (Auto) Neut % (Auto) Lymph % (Auto) [place] % (Auto) Eos % (Auto) Baso % (Auto) Lymph # (Auto) [place] # (Auto) Eos # (Auto) Baso # (Auto) Abs Immat Gran (auto) Absolute Neuts (auto) Absolute Nucleated RBC Nucleated RBC % Sodium 131 L Potassium 4.6 Chloride 94 L Carbon Dioxide 34 H Anion Gap 3 L BUN 31 H Creatinine 1.40 H Estim Creat Clear Calc 30 Estimated GFR 36 L Glucose 62 L POC Capillary Glucose 37 L* Calcium 8.9 Procalcitonin Anti-Streptolysin Scrn <50 11/24/22 11/24/22 06:59 06:59 WBC 5.5 RBC 3.12 L Hgb 9.5 L Hct 30.5 L MCV 97.8 MCH 30.4 MCHC 31.1 L RDW 15.5 H Plt Count 192 MPV 10.3 Immature Gran % (Auto) 0.7 H Neut % (Auto) 81.9 H Lymph % (Auto) 10.0 L [place] % (Auto) 6.3 Eos % (Auto) 0.9 Baso % (Auto) 0.2 Lymph # (Auto) 0.55 L [place] # (Auto) 0.4 Eos # (Auto) 0.1 Baso # (Auto) 0.0 Abs Immat Gran (auto) 0.04 H Absolute Neuts (auto) 4.5 Absolute Nucleated RBC 0.0 Nucleated RBC % 0.0 Sodium Potassium Chloride Carbon Dioxide Anion Gap BUN Creatinine Estim Creat Clear Calc Estimated GFR Glucose POC Capillary Glucose Calcium Procalcitonin Pending Anti-Streptolysin Scrn Post-procedural complaints: none Patient Feedback: Patient satisfied with anesthetic care.
[2022-11-24 07:44] LABS: Procalcitonin 0.2 ng/mL
[2022-11-24] MEDS: traMADol HCL (*CRX) 50 MG TABLET 100 MG PO ×2 (09:32→23:06)
[2022-11-24] MEDS: ASPIRIN 81 MG ENTERIC TABLET PO (09:33)
[2022-11-24] MEDS: CHOLECALCIFEROL 1,000 UNITS TABLET 2000 UNITS PO (09:33)
[2022-11-24] MEDS: ALPRAZolam (*CRX) 0.25 MG TABLET PO ×2 (09:33→19:26)
[2022-11-24] MEDS: busPIRone HCL 10 MG TABLET BY MOUTH ×3 (09:33→16:46)
[2022-11-24] MEDS: FERROUS SULFATE 324 MG TABLET PO ×2 (09:34→16:46)
[2022-11-24] MEDS: CLOPIDOGREL BISULFATE 75 MG TABLET PO (09:34)
[2022-11-24] MEDS: buPROPion HCL 75 MG TABLET BY MOUTH ×2 (09:34→16:46)
[2022-11-24] MEDS: FLUTICASONE PROPIONATE 0.05% NA SPR 16 GM BTL (*BKC) 1 SPRAY NASAL (09:34)
[2022-11-24] MEDS: CYANOCOBALAMIN 1,000 MCG TABLET 1000 MCG PO (09:34)
[2022-11-24] MEDS: FLUTICASONE/UMECLIDIN/VILANTER 200-62.5-25 MCG ELLIPTA 1 PUFF INHALATION (11:11)
[2022-11-24] MEDS: SODIUM ZIRCONIUM CYCLOSILICATE 10 GM POWD.PACK PO (11:39)
[2022-11-24] MEDS: CYCLOBENZAPRINE HCL 5 MG TABLET PO (13:36)
[2022-11-24 13:44] LABS: Glucose Point of Care 125 mg/dl (65-105)
[2022-11-24 13:44] LABS: Complement Total CH50 56 U/mL (31-60)
--- NOTE | 2022-11-24 17:32 | PM.IMPN ---
Progress Note: A&P Assessment and Plan (1) Hypokalemia due to loss of potassium: Code(s): E87.6 - Hypokalemia Status: Acute Assessment and Plan: pt i presented with severe hypokalemia replaced continue to monitor (2) GERD (gastroesophageal reflux disease): Qualifiers: Esophagitis presence: esophagitis presence not specified Qualified Code(s): K21.9 - Gastro-esophageal reflux disease without esophagitis Code(s): K21.9 - Gastro-esophageal reflux disease without esophagitis Status: Acute Assessment and Plan: pt is on protonix and sucralfate pt to complains of gerd complaints consulted GI underwent EGD on 11/23/2022. Gastritis mildly in the antrum no ulcers or erosions. Biopsies were taken (3) Acute renal failure: Qualifiers: Acute renal failure type: unspecified Qualified Code(s): N17.9 - Acute kidney failure, unspecified Code(s): N17.9 - Acute kidney failure, unspecified Status: Acute Assessment and Plan: Ld creat is 1.5 And gentle hydration. Avoid nephrotoxic drugs. Monitor antihypertensive drugs Avoid NSaids This is resolved (4) Hypertension: Code(s): I10 - Essential (primary) hypertension Status: Acute Assessment and Plan: bp chronic and stable (5) Abdominal distension: Code(s): R14.0 - Abdominal distension (gaseous) Status: Acute Assessment and Plan: Aneurysm is stable continue to monitor. abdominal pain and cholelithiasis on ultrasound No acute cholecystitis this has been chronic and nonspecific with negative workup so far H pylori was negative (6) AAA (abdominal aortic aneurysm): Qualifiers: Presence of rupture: without rupture Qualified Code(s): I71.4 - Abdominal aortic aneurysm, without rupture Code(s): I71.4 - Abdominal aortic aneurysm, without rupture Status: Acute Assessment and Plan: Aneurysm is stable continue to monitor. abdominal pain and cholelithiasis on ultrasound No acute cholecystitis (7) Atrial fibrillation: Code(s): I48.91 - Unspecified atrial fibrillation Status: Acute Assessment and Plan: 2D echo cardiac catheterization done 02/11/2022 ejection fraction 60% Coronary angiogram showed LAD lesion 80% status post angioplasty for severe coronary disease due to multiple drug allergies not on statins, Alex, beta-alyssa, Continue with aspirin and Plavix (8) Acute and chronic respiratory failure with hypoxia: Code(s): J96.21 - Acute and chronic respiratory failure with hypoxia Status: Acute Assessment and Plan: Resolved pt has history of copd Plan Cervical spinal stenosis is to see pain management. she has received injections in her neck in the past Has been referred to Neurosurgery. CKD stage 3 with mild LD on admission. Improving history of right lobectomy Cor COPD with chronic oxygen 2-3 L Chronic abdominal pain CTA done showed stable 3.2 x 2.8 cm fusiform infrarenal abdominal aortic aneurysm. No evidence of dissection calcified atherosclerosis of the aorta and many of the other arteries. Mild atherosclerosis of the celiac axis and superior mesenteric artery at their origins inferior mesenteric artery unremarkable. hypoglycemia noted in the labs. Random blood sugar checked today of 125 unclear etiology. Does not have diabetes. Subjective Date/time seen: 11/24/22 17:32 Interval history: patient has multiple complaints. Reports left shoulder is hurting and tingles and numb throughout her left upper extremity. She also have intermittent abdominal pain which has been recurrent without any obvious etiology found so far. Patient has been seeking IV narcotics several times during the hospital stay. Review of Systems Review of Systems: All systems reviewed & are unremarkable except as noted in HPI and below Exam Narrative: GENERAL: Well appearing, well-nourished, non-toxic,
[2022-11-24 19:41] LABS: Strep DNASE B Antibody <95 U/mL (<301)
[2022-11-24] MEDS: TROLAMINE SALICYLATE 10% (*BKC) 113 GM CREAM 1 APPLIC TOPICAL (20:10)
[2022-11-24 20:13] LABS: Anti Glomerular Basement Memb <1.0 AI (<1.0)
[2022-11-25] VITALS (9 sets, daily range): BP systolic 119–149; BP diastolic 57–74; PULSE 69–109; RESP 18–20; TEMP 35.9–36.3; O2SAT 97–100
[2022-11-25] MEDS: ALPRAZolam (*CRX) 0.25 MG TABLET PO ×2 (01:23→20:54)
[2022-11-25] MEDS: SUCRALFATE 1 GM TABLET 2 GM BY MOUTH ×2 (06:01→17:01)
[2022-11-25] MEDS: traMADol HCL (*CRX) 50 MG TABLET 100 MG PO ×2 (06:04→20:54)
[2022-11-25 06:10] LABS: Basophils Percent Auto 0.2 % (0.2-1.2); Eosinophils Percent Auto 0.7 % (0-4.4); Hematocrit 26.9 % (37.0-47.0); Hemoglobin 8.7 g/dL (12.0-15.0); Immature Granulocyte Absolute 0.03 K/mm3 (0.00-0.031); Immature Granulocyte Percent A 0.7 % (0-0.5); Lymphocytes Absolute Auto 0.44 K/mm3 (0.9-3.2); Mean Corpuscular HGB Conc 32.3 g/dl (32-36); Mean Corpuscular Hemoglobin 30.4 pg (26-34); Mean Corpuscular Volume 94.1 fl (80-100); Monocytes Absolute Auto 0.3 K/mm3 (0.1-0.6); Monocytes Percent Auto 7.7 % (2.6-8.5); Neutrophils Absolute Auto 3.5 K/mm3 (1.3-6.7); Neutrophils Percent Auto 80.7 % (45.5-73.1); Platelet Count Result 161 k/mm3 (150-375); Red Blood Count 2.86 M/mm3 (4.2-5.4); Red Cell Distribution Width 15.6 % (11.5-14.5); White Blood Count 4.4 K/mm3 (4.5-10.0)
[2022-11-25 06:33] LABS: Alanine Aminotransferase 45 U/L (6-35); Alkaline Phosphatase 74 U/L (38-126); Anion Gap 1 mmol/L (8-16); Aspartate Amino Transferase 29 U/L (14-36); Bilirubin,Total 0.7 mg/dL (0.2-1.3); Blood Urea Nitrogen 18 mg/dL (7-17); Calcium 8.3 mg/dL (8.4-10.2); Carbon Dioxide 35 mmol/L (22-30); Chloride 94 mmol/L (98-107); Estimated CRCL calculation 32 ml/min; Estimated Glomerular Filt Rate 40; Glucose 118 mg/dL (65-110); Magnesium 2.2 mg/dL (1.6-2.3); Potassium 3.5 mmol/L (3.4-5.0); Sodium 130 mmol/L (137-145)
[2022-11-25] MEDS: CHOLECALCIFEROL 1,000 UNITS TABLET 2000 UNITS PO (09:20)
[2022-11-25] MEDS: FLUTICASONE PROPIONATE 0.05% NA SPR 16 GM BTL (*BKC) 1 SPRAY NASAL (09:20)
[2022-11-25] MEDS: buPROPion HCL 75 MG TABLET BY MOUTH ×2 (09:20→17:01)
[2022-11-25] MEDS: CYANOCOBALAMIN 1,000 MCG TABLET 1000 MCG PO (09:21)
[2022-11-25] MEDS: busPIRone HCL 10 MG TABLET BY MOUTH ×3 (09:21→17:01)
[2022-11-25] MEDS: CLOPIDOGREL BISULFATE 75 MG TABLET PO (09:21)
[2022-11-25] MEDS: ASPIRIN 81 MG ENTERIC TABLET PO (09:22)
[2022-11-25] MEDS: FERROUS SULFATE 324 MG TABLET PO ×2 (09:23→17:01)
[2022-11-25] MEDS: SODIUM ZIRCONIUM CYCLOSILICATE 10 GM POWD.PACK PO (09:35)
[2022-11-25] MEDS: FLUTICASONE/UMECLIDIN/VILANTER 200-62.5-25 MCG ELLIPTA 1 PUFF INHALATION (10:18)
[2022-11-25 11:57] LABS: Iron 41 ug/dL (37-170)
[2022-11-25 12:06] LABS: Percent Iron Saturation 16 % (20-50)
[2022-11-25 13:03] LABS: Folic Acid 3.4 ng/mL (2.76->20)
[2022-11-25] MEDS: CYCLOBENZAPRINE HCL 5 MG TABLET PO ×2 (13:28→20:54)
--- NOTE | 2022-11-25 13:41 | PC.NURSE ---
Patient is refusing new placement of IV. Bilateral arms are bruised and very sore. Patient is not currently getting any IV medication. Will notify .
--- NOTE | 2022-11-25 14:13 | PM.IMPN ---
Progress Note: A&P Assessment and Plan (1) Hypokalemia due to loss of potassium: Code(s): E87.6 - Hypokalemia Status: Acute Assessment and Plan: pt i presented with severe hypokalemia replaced continue to monitor (2) GERD (gastroesophageal reflux disease): Qualifiers: Esophagitis presence: esophagitis presence not specified Qualified Code(s): K21.9 - Gastro-esophageal reflux disease without esophagitis Code(s): K21.9 - Gastro-esophageal reflux disease without esophagitis Status: Acute Assessment and Plan: pt is on protonix and sucralfate pt to complains of gerd complaints consulted GI underwent EGD on 11/23/2022. Gastritis mildly in the antrum no ulcers or erosions. Biopsies were taken (3) Acute renal failure: Qualifiers: Acute renal failure type: unspecified Qualified Code(s): N17.9 - Acute kidney failure, unspecified Code(s): N17.9 - Acute kidney failure, unspecified Status: Acute Assessment and Plan: Ld creat is 1.5 And gentle hydration. Avoid nephrotoxic drugs. Monitor antihypertensive drugs Avoid NSaids This is resolved (4) Hypertension: Code(s): I10 - Essential (primary) hypertension Status: Acute Assessment and Plan: bp chronic and stable (5) Abdominal distension: Code(s): R14.0 - Abdominal distension (gaseous) Status: Acute Assessment and Plan: Aneurysm is stable continue to monitor. abdominal pain and cholelithiasis on ultrasound No acute cholecystitis this has been chronic and nonspecific with negative workup so far H pylori was negative with intermittent pains, wonder if this is biliary colic. which makes these gall stones symptomatic, without any evdience of cholecysttiis. will consult general surgery for evaluation and if cholecystectomy would be helpful (6) AAA (abdominal aortic aneurysm): Qualifiers: Presence of rupture: without rupture Qualified Code(s): I71.4 - Abdominal aortic aneurysm, without rupture Code(s): I71.4 - Abdominal aortic aneurysm, without rupture Status: Acute Assessment and Plan: Aneurysm is stable continue to monitor. abdominal pain and cholelithiasis on ultrasound No acute cholecystitis (7) Atrial fibrillation: Code(s): I48.91 - Unspecified atrial fibrillation Status: Acute Assessment and Plan: 2D echo cardiac catheterization done 02/11/2022 ejection fraction 60% Coronary angiogram showed LAD lesion 80% status post angioplasty for severe coronary disease due to multiple drug allergies not on statins, Alex, beta-alyssa, Continue with aspirin and Plavix (8) Acute and chronic respiratory failure with hypoxia: Code(s): J96.21 - Acute and chronic respiratory failure with hypoxia Status: Acute Assessment and Plan: Resolved pt has history of copd Plan Cervical spinal stenosis is to see pain management. she has received injections in her neck in the past Has been referred to Neurosurgery. CKD stage 3 with mild LD on admission. Improving history of right lobectomy Cor COPD with chronic oxygen 2-3 L Chronic abdominal pain CTA done showed stable 3.2 x 2.8 cm fusiform infrarenal abdominal aortic aneurysm. No evidence of dissection calcified atherosclerosis of the aorta and many of the other arteries. Mild atherosclerosis of the celiac axis and superior mesenteric artery at their origins inferior mesenteric artery unremarkable. follows with vascular surgeron in [facility] area hypoglycemia noted in the labs. Random blood sugar checked today of 125 unclear etiology. Does not have diabetes. Subjective Date/time seen: 11/25/22 14:13 Interval history: no new complaints. feels okay. husbaand at bedside. she having recurrent abdominal pain. upon discussion, no obvious etiology evident. gall stone found but unclear whether or not this is the problem. gi findings and evaluation reviewed.
--- NOTE | 2022-11-25 15:03 | PC.NURSE ---
Patient states that she ripped out her IV last night because it was hurting and bothering her. No IV access today. Bilateral arms are very bruised and hardened. Patient refused new IV today. Dr. Silva put in order for HIDA scan, requiring IV access. Patient states she would be willing to let ultrasound nurse try for IV. Maritza Aguiar RN states that she will come up at 7am tomorrow to try to get IV access. Nuc Med aware and will come get patient for HIDA scan shortly after. Dr. Silva aware. Dr. silva states that if patient refuses IV again she can be discharged from his stand point. Patient to be NPO after midnight with no narcotics after this time. Will inform night nurse.
--- NOTE | 2022-11-25 15:16 | PM.CNGS ---
Assessment and Plan Assessment and plan (1) Epigastric abdominal pain: Code(s): R10.13 - Epigastric pain Status: Acute Assessment and Plan: Present on admission and the reason she came to the emergency room in [place]. Came on after a fatty meal and resolved after narcotic analgesics. Associated with nausea and vomiting. Patient has gallstones by imaging but no evidence of cholecystitis. Sounds suspicious for gallstones and chronic cholecystitis. HIDA scan is pending, to be done tomorrow after IV access placed. Patient is a difficult IV stick. (2) Cholelithiasis: Code(s): K80.20 - Calculus of gallbladder without cholecystitis without obstruction Status: Chronic Assessment and Plan: Noted on ultrasound and CT scan. No evidence of gallbladder inflammation however. Please see above. (3) Stented coronary artery: Code(s): Z95.5 - Presence of coronary angioplasty implant and graft Status: Chronic Assessment and Plan: Placed to 2 or 3 years ago. (4) Antiplatelet or antithrombotic long-term use: Code(s): Z79.02 - USP (current) use of antithrombotics/antiplatelets Status: Chronic Assessment and Plan: If surgery is indicated, patient would half to have her clopidogrel gel stopped for 5-6 days before surgery. It is currently being given while in the hospital. Aspirin may be continued while clopidogrel gel has been stopped. (5) Chronic respiratory failure with hypoxia: Code(s): J96.11 - Chronic respiratory failure with hypoxia Status: Chronic Assessment and Plan: On 2-3 L per nasal cannula home oxygen (6) COPD (chronic obstructive pulmonary disease): Code(s): J44.9 - Chronic obstructive pulmonary disease, unspecified Status: Chronic (7) Personal history of malignant neoplasm of bronchus and lung: Code(s): Z85.118 - Personal history of other malignant neoplasm of bronchus and lung Status: Chronic Assessment and Plan: Probably right upper lobectomy was performed. Patient did not have chemotherapy or radiation therapy. Procedure was performed in 1986. History of Present Illness Consult details Consult date: 11/25/22 Reason for consult: abdominal pain Requesting physician: Chepe Colbert MD Narrative: Patient is a 77-year-old woman who 7 or 8 days ago, she was not sure, had a supper consisting of mesh potatoes and gravy, sausage, and corn. Soon thereafter she experienced severe epigastric abdominal pain. She went to the emergency room in [place]. Besides having abdominal pain she was also noted to have a very low serum potassium. She was given pain medicine for the abdominal pain and then transferred to [place] for inpatient treatment. Her potassium was corrected and in fact her potassium went too high a couple of days later. Her abdominal pain subsided after having 2 or 3 rounds of narcotic analgesics. Since then, she has not had any recurrence of this pain. She has had pain, predominantly in the upper abdomen, but mostly nausea for a couple of years. She had thought this was from ulcer disease. She was seen by Gastroenterology on this admission. They clarified that her previous EGD had shown only gastritis, not an ulcer. She also had another EGD yesterday or the day before and this was negative for any type of gastritis or ulcer disease. Patient reports that when she did have this severe pain that brought her to the hospital, she also had nausea and vomiting. Her initial CT scan on admission showed gallstones but no signs of cholecystitis. Five days ago she had an ultrasound of the right upper quadrant which also showed gallstones but no signs of inflammation. She also describes bloating and abdominal distention. She is seen now in consultation regarding her gallstones and this episode of severe epigastric abdominal pain after a fatty meal that brought her to the hospital. She has other significant maren
[2022-11-25 22:31] LABS: ANCA Screen Negative (Negative)
[2022-11-26] VITALS (7 sets, daily range): BP systolic 124–166; BP diastolic 70–85; PULSE 60–113; RESP 16–20; TEMP 35.9–36.8; O2SAT 80–100
[2022-11-26] MEDS: SUCRALFATE 1 GM TABLET 2 GM BY MOUTH ×2 (05:29→16:30)
[2022-11-26 06:17] LABS: Glucose Point of Care 93 mg/dl (65-105)
--- NOTE | 2022-11-26 06:33 | PM.PNGS ---
Progress Note: A&P Assessment and Plan (1) Epigastric abdominal pain: Code(s): R10.13 - Epigastric pain Status: Acute Assessment and Plan: No recurrence of pain. Suspicious for biliary colic as described in consultation. Patient to have HIDA scan today after IV access obtained. (2) Cholelithiasis: Code(s): K80.20 - Calculus of gallbladder without cholecystitis without obstruction Status: Chronic Assessment and Plan: Imaging shows gallstones but no gallbladder wall inflammation or signs of cholecystitis. 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 This will need to be stopped before she has surgery for at least 5 days. Subjective Subjective Date/Time Seen: 11/26/22 06:33 Patient reports: no new complaints (Had a quiet night.), pain is less (No recurrence of epigastric pain.) and afebrile Review of Systems Review of Systems: All systems reviewed & are unremarkable except as noted in HPI and below (HPI and those items noted below) Constitutional: Constitutional: Denies chills and Denies fever(s) Cardiovascular: Cardiovascular: Denies chest pain, Denies diaphoresis, Denies dyspnea and Denies paroxysmal nocturnal dyspnea Respiratory: Respiratory: Denies chest congestion, Denies cough and Denies dyspnea Integumentary/Breasts: Skin/Breast: Denies lesions and Denies rash Exam Const: General: comfortable and no acute distress; No confusion Orientation/consciousness: patient oriented x3 and No confusion GI: Inspection: normal to inspection, non-distended, scar and no visible herniation GI Palp: Yes Soft to palpation, No Tenderness to palpation present (GI), No Guarding due to palpation present (GI) and No Rebound tenderness present Auscultation: normal bowel sounds Neuro: General: patient oriented x3, no focal motor deficits and No confusion Extrem: General: no calf tenderness and no edema Psych: Affect: normal affect Insight: Good insight present (Psych) Judgement: Good judgement present (Psych) Objective Data Vital Signs Vital Signs: Vital Signs - 24 hr 11/25/22 08:00 11/25/22 10:20 11/25/22 12:00 Temperature 35.9 C L 36.0 C L Pulse Rate 95 69 94 Respiratory Rate 20 20 20 Blood Pressure 133/73 132/59 L Pulse Oximetry 100 100 Oxygen Delivery Oxygen Flow Rate Fraction of Inspired Oxygen 11/25/22 10:30 11/25/22 12:58 11/25/22 09:17 Temperature Pulse Rate 70 69 Respiratory Rate 20 20 Blood Pressure Pulse Oximetry 98 98 Oxygen Delivery Nasal Cannula Nasal Cannula Oxygen Flow Rate 3 3 Fraction of Inspired Oxygen 32 11/25/22 16:00 11/25/22 20:00 11/25/22 20:00 Temperature 36.2 C L 36.1 C L Pulse Rate 109 H 99 Respiratory Rate 20 19 Blood Pressure 119/65 130/57 L Pulse Oximetry 100 97 100 Oxygen Delivery Nasal Cannula Oxygen Flow Rate 3 Fraction of Inspired Oxygen 11/26/22 04:00 Temperature 35.9 C L Pulse Rate 90 Respiratory Rate 19 Blood Pressure 166/77 H Pulse Oximetry 100 Oxygen Delivery Oxygen Flow Rate Fraction of Inspired Oxygen Intake/Output Intake/Output: Intake & Output 11/23/22 11/24/22 11/25/22 11/26/22 23:59 23:59 23:59 23:59 Intake Total 940 1122 2084 Output Total 1500 200 900 200 Balance -899 373 3864 -200 Meds/Results Medications: Active Medications Generic Name Dose Route Start Last Admin Trade Name Freq PRN Reason Stop Dose Admin Acetaminophen 1,000 mg 11/20/22 18:55 11/23/22 20:10 Acetaminophen 500 Mg Tablet PO 1,000 mg Q6H PRN Administration Mild Pain (1-3) or Fever Albuterol 2 puff 11/18/22 17:05 11/23/22 02:18 Albuterol Sulfate (*Sp) Aerosol 1 Puff INHALATION 2 puff Q4HRT PRN Administration SHORTNESS OF BREATH/WEEZING Alprazolam 0.25 mg 11/20/22 11:38 11/25/22 20:54
[2022-11-26 06:42] LABS: Basophils Percent Auto 0.3 % (0.2-1.2); Eosinophils Percent Auto 0.8 % (0-4.4); Hematocrit 30.2 % (37.0-47.0); Hemoglobin 9.7 g/dL (12.0-15.0); Immature Granulocyte Absolute 0.03 K/mm3 (0.00-0.031); Immature Granulocyte Percent A 0.8 % (0-0.5); Lymphocytes Absolute Auto 0.44 K/mm3 (0.9-3.2); Lymphocytes Percent Auto 11.3 % (18.3-44.2); Mean Corpuscular HGB Conc 32.1 g/dl (32-36); Mean Corpuscular Hemoglobin 30.4 pg (26-34); Mean Corpuscular Volume 94.7 fl (80-100); Monocytes Absolute Auto 0.3 K/mm3 (0.1-0.6); Monocytes Percent Auto 8.8 % (2.6-8.5); Platelet Count Result 173 k/mm3 (150-375); Red Blood Count 3.19 M/mm3 (4.2-5.4); White Blood Count 3.9 K/mm3 (4.5-10.0)
[2022-11-26 06:52] LABS: Alanine Aminotransferase 42 U/L (6-35); Albumin Level 3.3 g/dL (3.5-5.1); Alkaline Phosphatase 67 U/L (38-126); Anion Gap 2 mmol/L (8-16); Aspartate Amino Transferase 31 U/L (14-36); Bilirubin,Total 0.8 mg/dL (0.2-1.3); Blood Urea Nitrogen 16 mg/dL (7-17); Calcium 8.3 mg/dL (8.4-10.2); Carbon Dioxide 36 mmol/L (22-30); Chloride 96 mmol/L (98-107); Estimated CRCL calculation 32 ml/min; Estimated Glomerular Filt Rate 40; Glucose 86 mg/dL (65-110); Magnesium 2.2 mg/dL (1.6-2.3); Potassium 3.5 mmol/L (3.4-5.0); Sodium 134 mmol/L (137-145)
[2022-11-26] MEDS: ALBUTEROL SULFATE (*SP) AEROSOL 1 PUFF 2 PUFF INHALATION (08:25)
[2022-11-26] MEDS: FLUTICASONE/UMECLIDIN/VILANTER 200-62.5-25 MCG ELLIPTA 1 PUFF INHALATION (08:25)
[2022-11-26] MEDS: ALPRAZolam (*CRX) 0.25 MG TABLET PO ×2 (09:35→16:27)
--- NOTE | 2022-11-26 10:24 | PC.NURSE ---
Pt NPO for HIDA scan, will administer medication after HIDA is complete.
[2022-11-26] MEDS: FLUTICASONE PROPIONATE 0.05% NA SPR 16 GM BTL (*BKC) 1 SPRAY NASAL (12:09)
[2022-11-26] MEDS: busPIRone HCL 10 MG TABLET BY MOUTH ×2 (12:09→16:30)
[2022-11-26] MEDS: CHOLECALCIFEROL 1,000 UNITS TABLET 2000 UNITS PO (12:09)
[2022-11-26] MEDS: ASPIRIN 81 MG ENTERIC TABLET PO (12:09)
[2022-11-26] MEDS: FERROUS SULFATE 324 MG TABLET PO ×2 (12:09→16:30)
[2022-11-26] MEDS: CLOPIDOGREL BISULFATE 75 MG TABLET PO (12:09)
[2022-11-26] MEDS: CYANOCOBALAMIN 1,000 MCG TABLET 1000 MCG PO (12:09)
[2022-11-26] MEDS: buPROPion HCL 75 MG TABLET BY MOUTH ×2 (12:09→16:30)
--- NOTE | 2022-11-26 15:25 | PM.IMPN ---
Progress Note: A&P Assessment and Plan (1) Hypokalemia due to loss of potassium: Code(s): E87.6 - Hypokalemia Status: Acute Assessment and Plan: pt i presented with severe hypokalemia replaced continue to monitor (2) GERD (gastroesophageal reflux disease): Qualifiers: Esophagitis presence: esophagitis presence not specified Qualified Code(s): K21.9 - Gastro-esophageal reflux disease without esophagitis Code(s): K21.9 - Gastro-esophageal reflux disease without esophagitis Status: Acute Assessment and Plan: pt is on protonix and sucralfate pt to complains of gerd complaints consulted GI underwent EGD on 11/23/2022. Gastritis mildly in the antrum no ulcers or erosions. Biopsies were taken (3) Acute renal failure: Qualifiers: Acute renal failure type: unspecified Qualified Code(s): N17.9 - Acute kidney failure, unspecified Code(s): N17.9 - Acute kidney failure, unspecified Status: Acute Assessment and Plan: Ld creat is 1.5 And gentle hydration. Avoid nephrotoxic drugs. Monitor antihypertensive drugs Avoid NSaids This is resolved (4) Hypertension: Code(s): I10 - Essential (primary) hypertension Status: Acute Assessment and Plan: bp chronic and stable (5) Abdominal distension: Code(s): R14.0 - Abdominal distension (gaseous) Status: Acute Assessment and Plan: Aneurysm is stable continue to monitor. abdominal pain and cholelithiasis on ultrasound No acute cholecystitis this has been chronic and nonspecific with negative workup so far H pylori was negative with intermittent pains, wonder if this is biliary colic. which makes these gall stones symptomatic, without any evdience of cholecysttiis. consulted general surgery for evaluation and if cholecystectomy would be helpful hida scan is normal which rules out acute cholecystitis await further gen surg recs will check her cardiac history which is not able to be obtained currently ,if no recent stents, should be able to stop her clopidogrel. (6) AAA (abdominal aortic aneurysm): Qualifiers: Presence of rupture: without rupture Qualified Code(s): I71.4 - Abdominal aortic aneurysm, without rupture Code(s): I71.4 - Abdominal aortic aneurysm, without rupture Status: Acute Assessment and Plan: Aneurysm is stable continue to monitor. abdominal pain and cholelithiasis on ultrasound No acute cholecystitis (7) Atrial fibrillation: Code(s): I48.91 - Unspecified atrial fibrillation Status: Acute Assessment and Plan: 2D echo cardiac catheterization done 02/11/2022 ejection fraction 60% Coronary angiogram showed LAD lesion 80% status post angioplasty for severe coronary diseaseThis was on 2019 due to multiple drug allergies not on statins, Alex, beta-alyssa, Continue with aspirin and Plavix Will hold Plavix since the last and was 3 years ago on 09/04/2020 (8) Acute and chronic respiratory failure with hypoxia: Code(s): J96.21 - Acute and chronic respiratory failure with hypoxia Status: Acute Assessment and Plan: Resolved pt has history of copd Plan Cervical spinal stenosis is to see pain management. she has received injections in her neck in the past Has been referred to Neurosurgery. CKD stage 3 with mild LD on admission. Improving history of right lobectomy Cor COPD with chronic oxygen 2-3 L Chronic abdominal pain CTA done showed stable 3.2 x 2.8 cm fusiform infrarenal abdominal aortic aneurysm. No evidence of dissection calcified atherosclerosis of the aorta and many of the other arteries. Mild atherosclerosis of the celiac axis and superior mesenteric artery at their origins inferior mesenteric artery unremarkable. follows with vascular surgeron in [facility] area hypoglycemia noted in the labs. Random blood sugar checked today of 125 unclear etiology. Does not have diabetes. S
[2022-11-26 18:33] LABS: IFOB Positive Control Positive; Immunochemical Fecal Occult Bl Negative (N)
[2022-11-26] MEDS: CYCLOBENZAPRINE HCL 5 MG TABLET PO (18:52)
[2022-11-27] VITALS (7 sets, daily range): BP systolic 110–144; BP diastolic 79–88; PULSE 87–105; RESP 18–20; TEMP 35.7–36.3; O2SAT 90–100
[2022-11-27] MEDS: ALPRAZolam (*CRX) 0.25 MG TABLET PO ×3 (04:39→21:20)
[2022-11-27] MEDS: SUCRALFATE 1 GM TABLET 2 GM BY MOUTH ×2 (05:22→16:50)
[2022-11-27 06:48] LABS: Basophils Percent Auto 0.6 % (0.2-1.2); Eosinophils Percent Auto 1.2 % (0-4.4); Hemoglobin 8.8 g/dL (12.0-15.0); Immature Granulocyte Absolute 0.01 K/mm3 (0.00-0.031); Immature Granulocyte Percent A 0.3 % (0-0.5); Lymphocytes Absolute Auto 0.43 K/mm3 (0.9-3.2); Lymphocytes Percent Auto 12.7 % (18.3-44.2); Mean Corpuscular HGB Conc 31.4 g/dl (32-36); Mean Corpuscular Volume 98.6 fl (80-100); Mean Platelet Volume 9.8 fl (7.4-10.4); Monocytes Absolute Auto 0.4 K/mm3 (0.1-0.6); Monocytes Percent Auto 11.2 % (2.6-8.5); Neutrophils Absolute Auto 2.5 K/mm3 (1.3-6.7); Platelet Count Result 160 k/mm3 (150-375); Red Blood Count 2.84 M/mm3 (4.2-5.4); Red Cell Distribution Width 16.5 % (11.5-14.5); White Blood Count 3.4 K/mm3 (4.5-10.0)
[2022-11-27 06:59] LABS: Alanine Aminotransferase 34 U/L (6-35); Albumin Level 2.8 g/dL (3.5-5.1); Alkaline Phosphatase 75 U/L (38-126); Anion Gap 1 mmol/L (8-16); Aspartate Amino Transferase 28 U/L (14-36); Bilirubin,Total 0.5 mg/dL (0.2-1.3); Blood Urea Nitrogen 15 mg/dL (7-17); Calcium 8.1 mg/dL (8.4-10.2); Carbon Dioxide 34 mmol/L (22-30); Chloride 100 mmol/L (98-107); Estimated CRCL calculation 35 ml/min; Estimated Glomerular Filt Rate 44; Glucose 109 mg/dL (65-110); Potassium 3.4 mmol/L (3.4-5.0); Sodium 135 mmol/L (137-145)
[2022-11-27] MEDS: CYANOCOBALAMIN 1,000 MCG TABLET 1000 MCG PO (08:08)
[2022-11-27] MEDS: FERROUS SULFATE 324 MG TABLET PO ×2 (08:08→16:50)
[2022-11-27] MEDS: busPIRone HCL 10 MG TABLET BY MOUTH ×3 (08:08→16:50)
[2022-11-27] MEDS: ACETAMINOPHEN 500 MG TABLET 1000 MG PO ×2 (08:08→14:08)
[2022-11-27] MEDS: buPROPion HCL 75 MG TABLET BY MOUTH ×2 (08:08→16:50)
[2022-11-27] MEDS: CYCLOBENZAPRINE HCL 5 MG TABLET PO ×3 (08:08→21:20)
[2022-11-27] MEDS: ASPIRIN 81 MG ENTERIC TABLET PO (08:08)
[2022-11-27] MEDS: CHOLECALCIFEROL 1,000 UNITS TABLET 2000 UNITS PO (08:08)
[2022-11-27] MEDS: FLUTICASONE PROPIONATE 0.05% NA SPR 16 GM BTL (*BKC) 1 SPRAY NASAL (08:09)
[2022-11-27] MEDS: FLUTICASONE/UMECLIDIN/VILANTER 200-62.5-25 MCG ELLIPTA 1 PUFF INHALATION (08:50)
[2022-11-27] MEDS: ALBUTEROL SULFATE (*SP) AEROSOL 1 PUFF 2 PUFF INHALATION (08:50)
--- NOTE | 2022-11-27 13:19 | PM.IMPN ---
Progress Note: A&P Assessment and Plan (1) Hypokalemia due to loss of potassium: Code(s): E87.6 - Hypokalemia Status: Acute Assessment and Plan: pt i presented with severe hypokalemia replaced continue to monitor (2) GERD (gastroesophageal reflux disease): Qualifiers: Esophagitis presence: esophagitis presence not specified Qualified Code(s): K21.9 - Gastro-esophageal reflux disease without esophagitis Code(s): K21.9 - Gastro-esophageal reflux disease without esophagitis Status: Acute Assessment and Plan: pt is on protonix and sucralfate pt to complains of gerd complaints consulted GI underwent EGD on 11/23/2022. Gastritis mildly in the antrum no ulcers or erosions. Biopsies were taken (3) Acute renal failure: Qualifiers: Acute renal failure type: unspecified Qualified Code(s): N17.9 - Acute kidney failure, unspecified Code(s): N17.9 - Acute kidney failure, unspecified Status: Acute Assessment and Plan: Ld creat is 1.5 And gentle hydration. Avoid nephrotoxic drugs. Monitor antihypertensive drugs Avoid NSaids This is resolved (4) Hypertension: Code(s): I10 - Essential (primary) hypertension Status: Acute Assessment and Plan: bp chronic and stable (5) Abdominal distension: Code(s): R14.0 - Abdominal distension (gaseous) Status: Acute Assessment and Plan: Aneurysm is stable continue to monitor. abdominal pain and cholelithiasis on ultrasound No acute cholecystitis this has been chronic and nonspecific with negative workup so far H pylori was negative with intermittent pains, wonder if this is biliary colic. which makes these gall stones symptomatic, without any evdience of cholecysttiis. consulted general surgery for evaluation and if cholecystectomy would be helpful hida scan is normal which rules out acute cholecystitis await further gen surg recs will check her cardiac history which is not able to be obtained currently ,if no recent stents, should be able to stop her clopidogrel. General surgery recommends no cholecystectomy currently and to follow-up as an outpatient if another similar attack happens (6) AAA (abdominal aortic aneurysm): Qualifiers: Presence of rupture: without rupture Qualified Code(s): I71.4 - Abdominal aortic aneurysm, without rupture Code(s): I71.4 - Abdominal aortic aneurysm, without rupture Status: Acute Assessment and Plan: Aneurysm is stable continue to monitor. abdominal pain and cholelithiasis on ultrasound No acute cholecystitis (7) Atrial fibrillation: Code(s): I48.91 - Unspecified atrial fibrillation Status: Acute Assessment and Plan: 2D echo cardiac catheterization done 02/11/2022 ejection fraction 60% Coronary angiogram showed LAD lesion 80% status post angioplasty for severe coronary diseaseThis was on 2020 due to multiple drug allergies not on statins, Alex, beta-alyssa, Continue with aspirin and Plavix Will hold Plavix since the last and was 3 years ago on 09/04/2020. May restart and have her follow-up with Cardiology if continued Plavix dizzy needed. They have not followed up with cardiology since 2019. (8) Acute and chronic respiratory failure with hypoxia: Code(s): J96.21 - Acute and chronic respiratory failure with hypoxia Status: Acute Assessment and Plan: Resolved pt has history of copd Plan Cervical spinal stenosis is to see pain management. she has received injections in her neck in the past Has been referred to Neurosurgery. CKD stage 3 with mild LD on admission. Improving history of right lobectomy Cor COPD with chronic oxygen 2-3 L Chronic abdominal pain CTA done showed stable 3.2 x 2.8 cm fusiform infrarenal abdominal aortic aneurysm. No evidence of dissection calcified atherosclerosis of the aorta and many of the other arteries. Mild atherosclerosis of the celiac
[2022-11-27] MEDS: traMADol HCL (*CRX) 50 MG TABLET 100 MG PO (21:20)
[2022-11-28] MEDS: ACETAMINOPHEN 500 MG TABLET 1000 MG PO (02:10)
[2022-11-28] MEDS: ALPRAZolam (*CRX) 0.25 MG TABLET PO ×2 (04:31→15:21)
[2022-11-28] MEDS: traMADol HCL (*CRX) 50 MG TABLET 100 MG PO (04:31)
[2022-11-28] MEDS: SUCRALFATE 1 GM TABLET 2 GM BY MOUTH (05:48)
[2022-11-28 06:00] VITALS: BP 153/78; PULSE 100; RESP 20; TEMP 36.4; O2SAT 100
[2022-11-28 06:01] LABS: Basophils Percent Auto 0.5 % (0.2-1.2); Eosinophils Absolute Auto 0.1 K/mm3 (0-0.3); Eosinophils Percent Auto 1.3 % (0-4.4); Hematocrit 26.4 % (37.0-47.0); Hemoglobin 8.4 g/dL (12.0-15.0); Immature Granulocyte Absolute 0.03 K/mm3 (0.00-0.031); Immature Granulocyte Percent A 0.8 % (0-0.5); Lymphocytes Absolute Auto 0.53 K/mm3 (0.9-3.2); Lymphocytes Percent Auto 13.6 % (18.3-44.2); Mean Corpuscular HGB Conc 31.8 g/dl (32-36); Mean Corpuscular Hemoglobin 29.8 pg (26-34); Mean Corpuscular Volume 93.6 fl (80-100); Mean Platelet Volume 9.7 fl (7.4-10.4); Monocytes Absolute Auto 0.4 K/mm3 (0.1-0.6); Monocytes Percent Auto 10.3 % (2.6-8.5); Neutrophils Absolute Auto 2.9 K/mm3 (1.3-6.7); Neutrophils Percent Auto 73.5 % (45.5-73.1); Platelet Count Result 163 k/mm3 (150-375); Red Blood Count 2.82 M/mm3 (4.2-5.4); White Blood Count 3.9 K/mm3 (4.5-10.0)
[2022-11-28 06:13] LABS: Chloride 100 mmol/L (98-107)
[2022-11-28 06:17] LABS: Alanine Aminotransferase 31 U/L (6-35); Albumin Level 2.8 g/dL (3.5-5.1); Alkaline Phosphatase 73 U/L (38-126); Anion Gap 4 mmol/L (8-16); Aspartate Amino Transferase 26 U/L (14-36); Bilirubin,Total 0.6 mg/dL (0.2-1.3); Blood Urea Nitrogen 17 mg/dL (7-17); Calcium 8.1 mg/dL (8.4-10.2); Carbon Dioxide 32 mmol/L (22-30); Estimated CRCL calculation 38 ml/min; Estimated Glomerular Filt Rate 48; Glucose 102 mg/dL (65-110); Magnesium 2.2 mg/dL (1.6-2.3); Potassium 3.1 mmol/L (3.4-5.0); Sodium 136 mmol/L (137-145)
[2022-11-28] MEDS: FLUTICASONE/UMECLIDIN/VILANTER 200-62.5-25 MCG ELLIPTA 1 PUFF INHALATION (07:41)
[2022-11-28 07:43] VITALS: O2SAT 92
[2022-11-28] MEDS: ASPIRIN 81 MG ENTERIC TABLET PO (09:07)
[2022-11-28] MEDS: FERROUS SULFATE 324 MG TABLET PO (09:07)
[2022-11-28] MEDS: CHOLECALCIFEROL 1,000 UNITS TABLET 2000 UNITS PO (09:07)
[2022-11-28] MEDS: buPROPion HCL 75 MG TABLET BY MOUTH (09:07)
[2022-11-28] MEDS: busPIRone HCL 10 MG TABLET BY MOUTH ×2 (09:07→15:21)
[2022-11-28] MEDS: FLUTICASONE PROPIONATE 0.05% NA SPR 16 GM BTL (*BKC) 1 SPRAY NASAL (09:08)
[2022-11-28] MEDS: CYANOCOBALAMIN 1,000 MCG TABLET 1000 MCG PO (09:08)
[2022-11-28] MEDS: POTASSIUM CHLORIDE 20 MEQ TABLET 40 MEQ PO (09:08)
--- NOTE | 2022-11-28 14:15 | PM.DS ---
DS: Admitting Diagnosis Discharge Date 11/28/2022 Admitting Diagnosis abdominal pain DS: Discharge Diagnosis Discharge Diagnosis (1) Hypokalemia due to loss of potassium: Code(s): E87.6 - Hypokalemia Status: Acute (2) GERD (gastroesophageal reflux disease): Qualifiers: Esophagitis presence: esophagitis presence not specified Qualified Code(s): K21.9 - Gastro-esophageal reflux disease without esophagitis Code(s): K21.9 - Gastro-esophageal reflux disease without esophagitis Status: Acute (3) Acute renal failure: Qualifiers: Acute renal failure type: unspecified Qualified Code(s): N17.9 - Acute kidney failure, unspecified Code(s): N17.9 - Acute kidney failure, unspecified Status: Acute (4) Hypertension: Code(s): I10 - Essential (primary) hypertension Status: Acute (5) Abdominal distension: Code(s): R14.0 - Abdominal distension (gaseous) Status: Acute (6) AAA (abdominal aortic aneurysm): Qualifiers: Presence of rupture: without rupture Qualified Code(s): I71.4 - Abdominal aortic aneurysm, without rupture Code(s): I71.4 - Abdominal aortic aneurysm, without rupture Status: Acute (7) Atrial fibrillation: Code(s): I48.91 - Unspecified atrial fibrillation Status: Acute (8) Acute and chronic respiratory failure with hypoxia: Code(s): J96.21 - Acute and chronic respiratory failure with hypoxia Status: Acute DS: Summary Hospital Course Hospital Course: # abdominal pain acute on chronic with associated abdominal distention bloating sensation. Ultrasound with cholelithiasis with no findings of acute cholecystitis. CT reviewed with stable aortic aneurysm. H pylori was negative. EGD was negative except for mild gastritis With intermittent pain suspected biliary colic and hence general surgery was consulted. HIDA scan was done which was normal. With her chronic issues difficult to a certain what caused the acute abdominal pain however she has not had any further attack during the hospital stay and hence deferred gallbladder surgery per General surgery. She will follow-up with general surgeon outpatient basis in case her symptoms recur or remained persistent. This was discussed thoroughly with the patient in the family during the hospital stay. # severe hypokalemia replaced was on metolazone and Lasix which was stopped. Restart Lasix for lower extremity edema which is chronic with potassium supplementation. Stop metolazone at discharge due to severe hypokalemia. Needs labs and monitoring as an outpatient basis # GERD: pt is on protonix and sucralfate pt to complains of gerd complaints ?consulted GI underwent EGD on 11/23/2022.? Gastritis mildly in the antrum no ulcers or erosions.? Biopsies were taken # ANEL : creat is 1.5 And up to 1.9 during the hospital stay likely due to diuresis. Avoid nephrotoxic drugs. Monitor antihypertensive drugs Avoid NSaids This is resolved And back to baseline Restart on Lasix due to ongoing issue with chronic lower extremity edema # hypertension: bp chronic and stable # Abdominal aortic aneurysm: Aneurysm is stable continue to monitor. # coronary artery disease status post stent in 09/04/2020 on aspirin Plavix. She has not followed up with Cardiology since then. Advised her to follow-up with cardiology and see if she can go off Plavix # chronic respiratory failure with hypoxia on home oxygen # COPD: Home medication not in exacerbation # Cervical spinal stenosis and chronic pain related to this. She has seen pain management and received injection in the past she has more recently been sent to Neurosurgery for further evaluation. She has yet to see the neurosurgeon. #CKD stage 3 with mild ANEL on admission.? Improving #?history of right lobectomy # COPD with chronic oxygen 2-3 L #Chronic abdominal pain? CTA done showed stable 3.2 x 2.8
[2022-11-28 14:45] VITALS: BP 117/50; PULSE 95; RESP 16; TEMP 36.6; O2SAT 93
--- NOTE | 2022-11-28 16:33 | PCCCNOTE ---
Bedside RN called CC stating that patient will be dc home with PT/OT recs for home health. CC sent face-sheet to [facility]
== END 2022-11-28 16:45 | disposition home or self-care (01) | DRG 391 ==
PROVIDERS: Family Medicine; Internal Medicine; Internal Medicine Gastroenterology; Nurse Practitioner; Admitting Provider Family Medicine; PCP Internal Medicine; Referring Provider Internal Medicine Gastroenterology; Visit Provider Internal Medicine
PROC: 0DJ08ZZ Inspection of Upper Intestinal Tract, Via Natural or Artificial Opening Endoscopic (ICD-10-PCS; CPT 43235; principal; 2022-11-23 11:00)
DX: K29.00 Acute gastritis without bleeding (principal); J96.21 Acute and chronic respiratory failure with hypoxia; N17.9 Acute kidney failure, unspecified; I13.0 Hypertensive heart and chronic kidney disease with heart failure and stage 1 through stage 4 chronic kidney disease, or unspecified chronic kidney disease; I50.22 Chronic systolic (congestive) heart failure; E87.6 Hypokalemia; K21.9 Gastro-esophageal reflux disease without esophagitis; R14.0 Abdominal distension (gaseous); N18.30 Chronic kidney disease, stage 3 unspecified; I71.40 Abdominal aortic aneurysm, without rupture, unspecified; I48.91 Unspecified atrial fibrillation; G47.33 Obstructive sleep apnea (adult) (pediatric); J44.9 Chronic obstructive pulmonary disease, unspecified; I25.10 Atherosclerotic heart disease of native coronary artery without angina pectoris; M54.12 Radiculopathy, cervical region; M48.02 Spinal stenosis, cervical region; K80.20 Calculus of gallbladder without cholecystitis without obstruction; K58.9 Irritable bowel syndrome, unspecified; E78.2 Mixed hyperlipidemia; F41.9 Anxiety disorder, unspecified; D72.829 Elevated white blood cell count, unspecified; E87.5 Hyperkalemia; F32.9 Major depressive disorder, single episode, unspecified; I73.9 Peripheral vascular disease, unspecified; E16.2 Hypoglycemia, unspecified; D64.9 Anemia, unspecified; Z99.81 Dependence on supplemental oxygen; Z85.118 Personal history of other malignant neoplasm of bronchus and lung; Z90.49 Acquired absence of other specified parts of digestive tract; Z90.710 Acquired absence of both cervix and uterus; Z95.5 Presence of coronary angioplasty implant and graft; Z87.891 Personal history of nicotine dependence; Z79.82 Long term (current) use of aspirin
CPT/HCPCS: 36415; 74018; 76705; 76775; 78226; 80048; 80053; 80069; 80076; 82274; 82550; 82595; 82607; 82728; 82746; 82948; 83520; 83540; 83550; 83605; 83735; 83930; 84100; 84145; 84155; 84165; 84439; 84443; 84480; 85025; 85027; 85652; 86036; 86038; 86039; 86060; 86140; 86160; 86162; 86215; 86225; 86235; 86703; 86705; 86706; 86803; 87340; 88305; 94640; 97161; 97165; A9270; A9537; G0432; J0131; J0360; J1170; J2405; J2704; J7120

== ENCOUNTER 2022-12-03 01:00 | Emergency (ER) | payer MEDICARE, SELFPAY ==
--- NOTE | ~2022-12-03 | XR_ITS ---
Portable chest x-ray Comparison: 11/18/2022 Clinical History: Shortness of breath Findings: There is probable chronic blunting at the right costophrenic angle, possibly postsurgical in nature, with suture lines in the right lung. Left lung is clear. Cardiomediastinal silhouette is stable. Bones and soft tissues are unremarkable. Impression: Postsurgical change, with probable chronic blunting of the right costophrenic angle. No definite acute abnormality seen. Reviewed, dictated and finalized at [facility]. TY CORONER Impression: Postsurgical change, with probable chronic blunting of the right costophrenic a ngle. No definite acute abnormality seen.
--- NOTE | ~2022-12-03 | XR_ITS ---
Right Shoulder Technique: AP and scapular Y views were obtained. Clinical History: Pain Findings: No fracture or dislocation is seen. Osseous alignment is anatomic. There is mild AC joint d egenerative change. Glenohumeral joint is preserved. Soft tissues are unremarkable. Impression: Mild AC joint degenerative change. Reviewed, dictated and finalized at location . D DYNAMICIST Impression: Mild AC joint degenerative change.
--- NOTE | ~2022-12-03 | XR_ITS ---
Left Shoulder Technique: AP and scapular Y views were obtained. Clinical History: Pain Findings: No fracture or dislocation is seen. Osseous alignment is anatomic. There is mild AC joint d egenerative change. There is mild to moderate glenohumeral joint degenerative change, with inferomedi al humeral head osteophyte. Soft tissues are unremarkable. Impression: Degenerative changes, as detailed above. No fracture or dislocation. Reviewed, dictated and finalized at location M. [facility] [employer] COORDINATOR Impression: Degenerative changes, as detailed above. No fracture or dislocation.
[2022-12-03 00:55] VITALS: BP 113/89; PULSE 94; RESP 18; TEMP 36.4; O2SAT 100
--- NOTE | 2022-12-03 01:24 | ECG_ITS ---
Measurements Intervals [place] Rate: 79 P: 83 [place]: 169 QRS: -10 QRSD: 129 T: 149 QT: 462 QTc: 532 Interpretive Statements SINUS RHYTHM LEFT BUNDLE BRANCH BLOCK [120+ ms QRS DURATION, 80+ ms Q/S IN V1/V2, 85+ ms R IN I/aVL/V5/V6] COMPARED TO ECG 11/18/2022 07:19:00 VENTRICULAR ECTOPICS ARE NOT PRESENT Electronically Signed On 12-03-2022 14:46:21 OPERATING COST CLERK by Get Gee M.D.
--- NOTE | 2022-12-03 01:34 | PC.NURSE ---
Pt. to X-ray
[2022-12-03] MEDS: predniSONE 40 MG, predniSONE 10 MG 50 MG PO (02:59)
[2022-12-03] MEDS: MORPHINE SULFATE INJ (*CRX) 10 MG/ML AMP 4 MG IM (03:00)
[2022-12-03 03:02] VITALS: BP 110/70; PULSE 95; RESP 17; TEMP 36.6; O2SAT 100
--- NOTE | 2022-12-03 04:45 | ED.EXTPRO ---
HPI - Extremity Problem General Chief complaint: Extremity Problem,Nontraumatic Stated complaint: RIGHT SHOULDER PAIN Time Seen by Provider: 12/03/22 02:26 History of Present Illness HPI Narrative: Patient with history of cervical radiculopathy for the past year that mostly affected her left upper extremity/shoulder now has pain in her right shoulder ongoing for the last few months, she came in today because she states that the pain was bad even with the tramadol that she takes. She states that over the past month, she is starting to have more weakness and numbness in her right upper extremity when before it was only in her left. She already has follow-up with neurosurgery in the next few days. No new symptoms other than increased severity, no chest or back pain, nausea or vomiting. No ANGELO Related Data Home Medications Medication Instructions Recorded Confirmed aspirin 81 mg tablet,delayed 81 mg PO DAILY 06/11/20 11/18/22 release (Adult Low Dose Aspirin) fluticasone propionate 50 1 spray intranasal DAILY 04/30/22 11/18/22 mcg/actuation nasal spray,suspension clopidogrel 75 mg tablet 75 mg PO DAILY 05/05/22 11/18/22 cyanocobalamin (vitamin B-12) 1,000 mcg PO DAILY 05/05/22 11/18/22 1,000 mcg tablet cholecalciferol (vitamin D3) 50 50 mcg PO DAILY 08/23/22 11/18/22 mcg (2,000 unit) capsule sucralfate 1 gram tablet 2 g PO BID 11/28/22 11/28/22 Allergies Allergy/AdvReac Type Severity Reaction Status Date / Time fluticasone Allergy Unknown Asthma Verified 11/23/22 09:03 pravastatin Allergy Unknown leg cramps Verified 11/23/22 09:03 salmeterol [Advair Diskus] Allergy Unknown Asthma Verified 11/23/22 09:03 atorvastatin AdvReac Unknown leg cramps Verified 11/23/22 09:03 ezetimibe AdvReac Unknown drowsiness Verified 11/23/22 09:03 rosuvastatin AdvReac Unknown muscle Verified 11/23/22 09:03 cramps hydrocodone AdvReac Vomiting Verified 11/23/22 09:03 melatonin AdvReac Nausea Verified 11/23/22 09:03 Review of Systems Review of Systems: CONST: No fever. HEENT: No sore throat C/V: No chest pain RESP: No cough GI: No nausea or vomiting : No dysuria. M/S: Bilateral shoulder pain SKIN: No rash. NEURO: Numbness and tingling and weakness in left upper extremity, increasing tingling and weakness in right upper extremity PSYCH: [No depression] [facility] Past Medical History Medical History AAA (abdominal aortic aneurysm) BMI 32.0-32.9,adult BMI 33.0-33.9,adult CAD (coronary artery disease) Cataract Cervical radiculopathy Cervicalgia Chronic low back pain Constipation COPD (chronic obstructive pulmonary disease) emphysema Depression Descending thoracic aortic aneurysm Edema Encounter for routine adult health examination with abnormal findings Erosive gastritis GERD (gastroesophageal reflux disease) History of gastric ulcer History of lung cancer History of tobacco abuse Hypersomnia Hypertension Hypoxia IBS (irritable bowel syndrome) Left shoulder pain FCI current use of therapeutic drug Lung cancer Rt lobectomy but no chemo or XRT Mixed hyperlipidemia Obstructive sleep apnea On senior care drug therapy Other specified diseases of anus and rectum Polycythemia Pulmonary hypertension PVD (peripheral vascular disease) Systolic CHF Tobacco abuse Vitamin B12 deficiency Vitamin D deficiency Weakness Surgical History Surgical History History of appendectomy History of hysterectomy History of lobectomy of lung Hx of pneumonectomy Stented coronary artery stent x2 to RCA and LAD 2-3 years ago Family History Family History Father Heart disease Sibling Heart disease Social History Social History Social History: She Smoked tobacco 1ppd x 55 yrs but quit 1 year ago. She Lives at home with her
== END 2022-12-03 03:17 | disposition home or self-care (01) ==
PROVIDERS: Emergency Provider Emergency Medicine; PCP Internal Medicine
DX: G89.29 Other chronic pain (principal); M54.12 Radiculopathy, cervical region; I25.10 Atherosclerotic heart disease of native coronary artery without angina pectoris; I11.0 Hypertensive heart disease with heart failure; I50.20 Unspecified systolic (congestive) heart failure; I73.9 Peripheral vascular disease, unspecified; J43.9 Emphysema, unspecified; E78.2 Mixed hyperlipidemia; E55.9 Vitamin D deficiency, unspecified; E53.8 Deficiency of other specified B group vitamins; K21.9 Gastro-esophageal reflux disease without esophagitis; K58.9 Irritable bowel syndrome, unspecified; G47.33 Obstructive sleep apnea (adult) (pediatric); D75.1 Secondary polycythemia; Z95.5 Presence of coronary angioplasty implant and graft; Z90.2 Acquired absence of lung [part of]; Z90.710 Acquired absence of both cervix and uterus; Z85.118 Personal history of other malignant neoplasm of bronchus and lung; Z87.891 Personal history of nicotine dependence; Z79.82 Long term (current) use of aspirin; I44.7 Left bundle-branch block, unspecified
CPT/HCPCS: 71045; 73030; 93005; 96374; 99284; J2270; J7512

== ENCOUNTER 2022-12-06 14:51 | Outpatient (NON) | payer MEDICARE, SELFPAY ==
[2022-12-06 16:48] LABS: Basophils Percent Auto 0.5 % (0.2-1.2); Hematocrit 26.3 % (37.0-47.0); Hemoglobin 8.1 g/dL (12.0-15.0); Immature Granulocyte Absolute 0.03 K/mm3 (0.00-0.031); Immature Granulocyte Percent A 0.8 % (0-0.5); Lymphocytes Absolute Auto 0.58 K/mm3 (0.9-3.2); Lymphocytes Percent Auto 15.1 % (18.3-44.2); Mean Corpuscular HGB Conc 30.8 g/dl (32-36); Mean Corpuscular Hemoglobin 29.8 pg (26-34); Mean Corpuscular Volume 96.7 fl (80-100); Mean Platelet Volume 9.4 fl (7.4-10.4); Monocytes Absolute Auto 0.4 K/mm3 (0.1-0.6); Monocytes Percent Auto 9.4 % (2.6-8.5); Neutrophils Absolute Auto 2.8 K/mm3 (1.3-6.7); Neutrophils Percent Auto 73.2 % (45.5-73.1); Platelet Count Result 270 k/mm3 (150-375); Red Blood Count 2.72 M/mm3 (4.2-5.4); Red Cell Distribution Width 16.9 % (11.5-14.5); White Blood Count 3.8 K/mm3 (4.5-10.0)
[2022-12-06 17:06] LABS: Alanine Aminotransferase 17 U/L (6-35); Albumin Level 2.6 g/dL (3.5-5.1); Alkaline Phosphatase 84 U/L (38-126); Aspartate Amino Transferase 23 U/L (14-36); Bilirubin,Total 0.6 mg/dL (0.2-1.3); Blood Urea Nitrogen 15 mg/dL (7-17); Calcium 8.2 mg/dL (8.4-10.2); Carbon Dioxide > 40 mmol/L (22-30); Chloride 93 mmol/L (98-107); Estimated Glomerular Filt Rate 54; Glucose 117 mg/dL (65-110); Potassium 3.1 mmol/L (3.4-5.0); Sodium 136 mmol/L (137-145)
== END 2022-12-06 14:52 | disposition home or self-care (01) ==
PROVIDERS: PCP Internal Medicine; Visit Provider Internal Medicine
DX: D72.829 Elevated white blood cell count, unspecified (principal); K80.20 Calculus of gallbladder without cholecystitis without obstruction; R10.13 Epigastric pain; R74.01 Elevation of levels of liver transaminase levels
CPT/HCPCS: 80053; 85025

== ENCOUNTER 2022-12-27 13:18 | Outpatient (NON) | payer MEDICARE, SELFPAY ==
[2022-12-27 13:50] LABS: Blood Urea Nitrogen 18 mg/dL (7-17); Calcium 9.4 mg/dL (8.4-10.2); Carbon Dioxide > 40 mmol/L (22-30); Chloride 93 mmol/L (98-107); Estimated Glomerular Filt Rate 44; Glucose 109 mg/dL (65-110); Potassium 3.8 mmol/L (3.4-5.0); Sodium 136 mmol/L (137-145)
[2022-12-27 13:51] LABS: Hematocrit 32.5 % (37.0-47.0); Hemoglobin 9.9 g/dL (12.0-15.0); Mean Corpuscular HGB Conc 30.5 g/dl (32-36); Mean Corpuscular Hemoglobin 29.8 pg (26-34); Mean Corpuscular Volume 97.9 fl (80-100); Mean Platelet Volume 9.8 fl (7.4-10.4); Platelet Count Result 360 k/mm3 (150-375); Red Blood Count 3.32 M/mm3 (4.2-5.4); Red Cell Distribution Width 16.9 % (11.5-14.5); White Blood Count 6.1 K/mm3 (4.5-10.0)
== END 2022-12-27 13:19 | disposition home or self-care (01) ==
PROVIDERS: PCP Internal Medicine; Visit Provider Internal Medicine
DX: D64.9 Anemia, unspecified (principal); E87.6 Hypokalemia
CPT/HCPCS: 80048; 85027

== ENCOUNTER 2023-01-26 13:42 | Outpatient (CLI) | payer MEDICARE, SELFPAY ==
--- NOTE | ~2023-01-26 | US_ITS ---
EXAMINATION: US venous doppler UE LT DATE: 01/26/2023 14:39 INDICATION: Left upper limb deep vein thrombosis. TECHNIQUE: Grayscale ultrasound images without and with compression and Doppler ultrasound images of the left upper extremity veins were obtained. COMPARISON: None. FINDINGS: The visualized portions of the left internal jugular vein, subclavian vein, axillary vein, brachial v eins, basilic vein, cephalic vein, radial vein, and ulnar vein are patent. IMPRESSION: 1. No deep venous thrombosis. Reviewed, dictated and finalized at location A.
--- NOTE | ~2023-01-26 | MR_ITS ---
EXAMINATION: MR cervical spine wo con DATE: 01/26/2023 16:14 INDICATION: Neck pain. TECHNIQUE: Magnetic resonance imaging (MRI) of the cervical spine was performed without intravenous c ontrast. COMPARISON: None FINDINGS: There is 2 mm anterolisthesis of C4 on C5 and C5 on C6. Vertebral body heights are normal. There is mildly decreased disc height at C5-C6 and severely decreased disc height at C6-C7. The spina l cord signal intensity is normal. The following disc levels are specifically discussed: C2-C3: There is a central protrusion. There is mild right uncovertebral joint osteoarthritis. There i s severe bilateral facet joint osteoarthritis. There is mild bilateral neural foraminal stenosis. The re is mild central canal stenosis. C3-C4: There is a central protrusion. There is no uncovertebral joint osteoarthritis. There is severe bilateral facet joint osteoarthritis. There is mild bilateral neural foraminal stenosis. There is mi ld central canal stenosis. C4-C5: The disc does not extend beyond the endplate margin. There is mild bilateral uncovertebral tom nt osteoarthritis. There is severe bilateral facet joint osteoarthritis. There is mild right and mode rate left neural foraminal stenosis. There is no central canal stenosis. C5-C6: The disc is bulging. There is severe bilateral uncovertebral joint osteoarthritis. There is mi ld right and severe left facet joint osteoarthritis. There is moderate bilateral neural foraminal madie nosis. There is mild central canal stenosis. C6-C7: The disc is bulging. There is severe bilateral uncovertebral joint osteoarthritis. There is se rod bilateral facet joint osteoarthritis. There is moderate bilateral neural foraminal stenosis. The re is mild central canal stenosis. C7-T1: There is a central extrusion. There is no uncovertebral joint osteoarthritis. There is severe bilateral facet joint osteoarthritis. There is mild bilateral neural foraminal stenosis. There is mil d central canal stenosis. IMPRESSION: 1. Severe cervical spondylosis. Reviewed, dictated and finalized at location A.
--- NOTE | ~2023-01-26 | XR_ITS ---
XR shoulder LT min 2V DATE: 01/26/2023 15:13 INDICATION: Left shoulder pain TECHNIQUE: 4 views COMPARISON: December 03, 2022 left shoulder FINDINGS: There is joint space narrowing and spurring at the left acromioclavicular joint consistent with moderate degenerative change. There is osteoarthritis of moderate No fracture, dislocation, periosteal reaction or bone destruction of the left shoulder or significant abnormal left shoulder soft tissue calcification is noted. Radiopaque sutures overlie the left perihilar area. There is thoracic aortic calcification. Degree at the left glenohumeral joint. IMPRESSION: Degenerative change at left acromioclavicular joint Moderately prominent left glenohumeral osteoarthritis Reviewed, dictated and finalized at location B.
== END 2023-01-26 13:43 | disposition home or self-care (01) ==
PROVIDERS: PCP Internal Medicine; Visit Provider Neurological Surgery
DX: M47.812 Spondylosis without myelopathy or radiculopathy, cervical region (principal); M79.89 Other specified soft tissue disorders; Z09 Encounter for follow-up examination after completed treatment for conditions other than malignant neoplasm; R60.9 Edema, unspecified; M25.519 Pain in unspecified shoulder; M19.012 Primary osteoarthritis, left shoulder
CPT/HCPCS: 72141; 73030; 93971

== ENCOUNTER 2023-03-30 13:16 | Outpatient (CLI) | payer MEDICARE, SELFPAY ==
--- NOTE | ~2023-03-30 | XR_ITS ---
EXAMINATION: XR lg joint inject/asp w image DATE: 03/30/2023 14:24 INDICATION: Left glenohumeral joint primary osteoarthritis. TECHNIQUE: A time-out was performed to verify the patient's name, date of , and procedure to b e performed. The procedure including the risks, benefits, and alternatives was discussed with the pat ient. Risks discussed included bleeding and infection. The patient understood the risks and agreed to proceed. The skin overlying the left glenohumeral joint was prepped and draped in usual sterile fas hion. Anesthetic was administered with 1% lidocaine subcutaneously. A 22 G needle was advanced unde r fluoroscopic guidance into the joint. Subsequently, injectate consisting of 2 mL 1% lidocaine and 2 mL 10 mg/mL Kenalog was instilled. The needle was removed and the entry site was cleaned and dress ed. There were no immediate complications. Fluoroscopy exposure time was 0.1 minutes. The total numb er of images was 1. FINDINGS: Real-time fluoroscopy demonstrates the needle in the left glenohumeral joint. Patient's medardo n prior to procedure:3/10. Patient's pain following the procedure: 0/10. IMPRESSION: 1. Fluoroscopy guided left glenohumeral joint injection of local anesthetic and steroid with decrease in the patient's presenting pain. Reviewed, dictated and finalized at location A.
== END 2023-03-30 13:17 | disposition home or self-care (01) ==
PROVIDERS: PCP Internal Medicine; Visit Provider Orthopaedic Surgery
DX: M19.012 Primary osteoarthritis, left shoulder (principal)
CPT/HCPCS: 20610; 77002; J3301

== ENCOUNTER 2023-05-24 17:14 | Outpatient (CLI) | payer MEDICARE, SELFPAY ==
[2023-05-25 00:57] LABS: Hemoglobin A1C 4.5 % (<5.7)
[2023-05-25 06:24] LABS: Folic Acid 10.7 ng/mL (2.76->20)
== END 2023-05-24 17:15 | disposition home or self-care (01) ==
PROVIDERS: PCP Family Medicine; Visit Provider Family Medicine
DX: R73.9 Hyperglycemia, unspecified (principal); E53.8 Deficiency of other specified B group vitamins
CPT/HCPCS: 36415; 82607; 82746; 83036

== ENCOUNTER 2023-06-23 11:25 | Emergency (ER) | payer MEDICARE, SELFPAY ==
[2023-06-23] VITALS (13 sets, daily range): BP systolic 129–152; BP diastolic 67–89; PULSE 84–99; RESP 15–22; TEMP 36.3; O2SAT 91–100
--- NOTE | 2023-06-23 11:34 | ECG_ITS ---
Measurements Intervals [place] Rate: 85 P: 52 GA: 168 QRS: -12 QRSD: 129 T: 84 QT: 396 QTc: 472 Interpretive Statements SINUS RHYTHM LEFT BUNDLE BRANCH BLOCK [120+ ms QRS DURATION, 80+ ms Q/S IN V1/V2, 85+ ms R IN I/aVL/V5/V6] COMPARED TO ECG 12/03/2022 01:32:19 NO SIGNIFICANT CHANGES Electronically Signed On 06-23-2023 15:39:53 CDT by Vianey Mojica M.D.
--- NOTE | 2023-06-23 13:26 | ED.GENADULT ---
HPI - General Adult General Chief complaint: Back Pain/Injury Stated complaint: BACK PAIN Time Seen by Provider: 06/23/23 13:00 Source: patient and family () Mode of arrival: EMS Limitations: no limitations History of Present Illness HPI narrative: Patient presents to the emergency department for left upper extremity pain. Patient states that she has a slipped disc in her neck, has had MRIs in the recent past, admits to seeing a neurosurgeon approximately six months ago, and was told she is not a good surgical candidate, and has also been referred to orthopedics for her left shoulder. Patient states she received injections in her left shoulder and was told by the orthopedic surgeon that while she has arthritis in her left shoulder, her left upper extremity discomfort for the past six months is more consistent with a pinched nerve. Patient has not followed back up with neurosurgery. Patient admits to a history of going through physical therapy. Patient admits to taking [id number] analgesics without any relief. Patient states this pain feels the same as her typical pain that starts on the left side of her neck and radiates down to her entire left upper extremity And she frequently has this and usually rests and waits for it to go away. Patient denies any recent injuries, recent illness, cough, chest pain, shortness of breath, nausea, vomiting, abdominal pain, lightheadedness, headache, vision, changes, sore throat, weakness, urinary incontinence, still incontinence. Patient states this episode of pain started sporadically yesterday, gradual in onset, has not noticed anything making the pain better, has not noticed anything making the pain worse, pain is unchanged since onset, feels the same as her history of this pain. Related Data Home Medications Medication Instructions Recorded Confirmed aspirin 81 mg tablet,delayed 81 mg PO DAILY 06/11/20 05/24/23 release (Adult Low Dose Aspirin) fluticasone propionate 50 1 spray intranasal DAILY 04/30/22 05/24/23 mcg/actuation nasal spray,suspension cyanocobalamin (vitamin B-12) 1,000 mcg PO DAILY 05/05/22 05/24/23 1,000 mcg tablet cholecalciferol (vitamin D3) 50 50 mcg PO DAILY 08/23/22 05/24/23 mcg (2,000 unit) capsule sucralfate 1 gram tablet 2 g PO BID 11/28/22 05/24/23 acetaminophen 500 mg tablet 500 mg PO Q6H PRN 12/08/22 05/24/23 (Tylenol Extra Strength) bupropion HCl 100 mg tablet 100 mg PO DAILY 12/08/22 05/24/23 dextromethorphan HBr 5 mg/5 mL See Rx Instructions .Route 12/08/22 05/24/23 oral syrup .COMPLEX PRN loperamide 2 mg tablet (Imodium See Rx Instructions .Route 12/08/22 05/24/23 A-D) .COMPLEX PRN oxygen-air delivery systems 12/08/22 05/24/23 sertraline 50 mg tablet 50 mg PO DAILY 05/02/23 05/24/23 Allergies Allergy/AdvReac Type Severity Reaction Status Date / Time fluticasone Allergy Unknown Asthma Verified 06/23/23 11:43 pravastatin Allergy Unknown leg cramps Verified 06/23/23 11:43 salmeterol [Advair Diskus] Allergy Unknown Asthma Verified 06/23/23 11:43 atorvastatin AdvReac Unknown leg cramps Verified 06/23/23 11:43 ezetimibe AdvReac Unknown drowsiness Verified 06/23/23 11:43 rosuvastatin AdvReac Unknown muscle Verified 06/23/23 11:43 cramps hydrocodone AdvReac Vomiting Verified 06/23/23 11:43 melatonin AdvReac Nausea Verified 06/23/23 11:43 Review of Systems Review of Systems: A 10 system review of systems was completed on the patient and is negative except for what is stated in the HPI. Nursing and ancillary documentation was reviewed. [facility] Past Medical History Medical History AAA (abdominal aortic aneurysm) BMI 32.0-32.9,adult BMI 33.0-33.9,adult CAD (coronary artery disease) Cataract Cervical radiculopathy Cervicalgia Chronic low back pain Constipation COPD (chronic obstructive pulmonary disease) emphysema Depression Descending thoracic aortic aneurysm Edema Encounte
[2023-06-23] MEDS: diazePAM (*CRX) 5 MG TABLET 10 MG PO (14:16)
== END 2023-06-23 14:29 | disposition home or self-care (01) ==
PROVIDERS: Emergency Provider Student in an Organized Health Care Education/Training Program; PCP Family Medicine
DX: M54.12 Radiculopathy, cervical region (principal); E78.2 Mixed hyperlipidemia; J44.9 Chronic obstructive pulmonary disease, unspecified; I11.0 Hypertensive heart disease with heart failure; I50.20 Unspecified systolic (congestive) heart failure; Z85.118 Personal history of other malignant neoplasm of bronchus and lung; Z87.891 Personal history of nicotine dependence
CPT/HCPCS: 93005; 99283; A9270

== ENCOUNTER 2024-03-28 16:12 | Outpatient (CLI) | payer MEDICARE, SELFPAY ==
[2024-03-28 17:33] LABS: Basophils Percent Auto 0.4 % (0.2-1.2); Eosinophils Absolute Auto 0.1 K/mm3 (0-0.3); Eosinophils Percent Auto 1.5 % (0-4.4); Hematocrit 33.6 % (37.0-47.0); Hemoglobin 10.2 g/dL (12.0-15.0); Immature Granulocyte Absolute 0.05 K/mm3 (0.00-0.031); Immature Granulocyte Percent A 0.6 % (0-0.5); Lymphocytes Absolute Auto 0.82 K/mm3 (0.9-3.2); Lymphocytes Percent Auto 9.2 % (18.3-44.2); Mean Corpuscular HGB Conc 30.4 g/dl (32-36); Mean Corpuscular Hemoglobin 29.7 pg (26-34); Mean Corpuscular Volume 97.7 fl (80-100); Monocytes Absolute Auto 0.6 K/mm3 (0.1-0.6); Monocytes Percent Auto 7.2 % (2.6-8.5); Neutrophils Absolute Auto 7.2 K/mm3 (1.3-6.7); Neutrophils Percent Auto 81.1 % (45.5-73.1); Platelet Count Result 355 k/mm3 (150-375); Red Blood Count 3.44 M/mm3 (4.2-5.4); Red Cell Distribution Width 15.1 % (11.5-14.5); White Blood Count 8.9 K/mm3 (4.5-10.0)
[2024-03-28 19:18] LABS: Alanine Aminotransferase 14 U/L (6-35); Albumin Level 4.2 g/dL (3.5-5.1); Alkaline Phosphatase 101 U/L (38-126); Anion Gap 6 mmol/L (4-12); Aspartate Amino Transferase 26 U/L (14-36); Bilirubin,Total 0.7 mg/dL (0.2-1.3); Blood Urea Nitrogen 26 mg/dL (7-17); Calcium 9.4 mg/dL (8.4-10.2); Carbon Dioxide 38 mmol/L (22-30); Chloride 96 mmol/L (98-107); Estimated Glomerular Filt Rate 27; Glucose 95 mg/dL (65-110); Potassium 3.3 mmol/L (3.4-5.0); Sodium 140 mmol/L (137-145)
[2024-03-30 08:09] LABS: Triiodothyronine T3 Free 2.7 pg/mL (2.3-4.2)
== END 2024-03-28 16:13 | disposition home or self-care (01) ==
LOC: ANHLAB 16:14
PROVIDERS: PCP Family Medicine; Visit Provider Physician Assistant
DX: D50.0 Iron deficiency anemia secondary to blood loss (chronic) (principal); E07.9 Disorder of thyroid, unspecified; E53.8 Deficiency of other specified B group vitamins; I25.10 Atherosclerotic heart disease of native coronary artery without angina pectoris; R94.6 Abnormal results of thyroid function studies
CPT/HCPCS: 36415; 80053; 82607; 84439; 84443; 84481; 85025

== ENCOUNTER 2024-06-11 09:17 | Outpatient (CLI) | payer MEDICARE, SELFPAY ==
--- NOTE | ~2024-06-11 | NM_ITS ---
EXAMINATION: NM leonidas stress w perfusion DATE: 06/11/2024 11:29 INDICATION: Chest pain. TECHNIQUE: Rest images were obtained following intravenous administration of 9.3 mCi Tc99m tetrofosmi n (Myoview). The patient was infused intravenously with Lexiscan (regadenoson). Then, 29 mCi Tc99m te trofosmin (Myoview) was administered intravenously, and stress images were obtained. Data was reconst ructed into short axis and horizontal and vertical long axis SPECT images. Gated SPECT images were al so obtained. COMPARISON: None. FINDINGS: There is no definite reversible or fixed perfusion abnormality to suggest ischemia or infar ction. There is no segmental wall motion abnormality. Left ventricular ejection fraction measures 6 3%. IMPRESSION: 1. No definite ischemia or infarct. 2. Normal left ventricular ejection fraction measuring 63%. Reviewed, dictated and finalized at location A.
--- NOTE | 2024-06-11 09:24 | EST_ITS ---
Patient Info Name: Hetal Stone Age: 78 years : 1945 Gender: Female Ht: 63 in Wt: 167 lbs BSA: 1.86 m2 Exam Date: 06/11/2024 10:22 AM Exam Location: Echo Lab Patient Status: Outpatient Admit Date: 06/11/2024 Staff Ordering Physician: Todd Sam DO Attending Provider: Todd Sam DO Exercise Technologist: Maddison Lora CT Exercise Physician: Todd Sam DO Exam Type: CA stress leonidas w NM Study Info Indications R07.9 - Chest pain, unspecified A regadenoson stress test was performed. Summary 1. 1. Inconclusive lexiscan stress test for ischemic ST changes by ECG criteria due to baseline LBBB. 2. 2. Stable hemodynamics throughout the test. 3. 3. Nuclear scan to follow and will be reported separately. Please correlate with it. 4. 4. Patient informed of the above results. Protocol: Lexiscan Stress ECG Details Stage: REST Duration (min): 1 min : 13 sec HR (bpm): 95 SBP (mmHg): 138 DBP (mmHg): 61 Stage: REST Duration (min): 11 min : 52 sec HR (bpm): 92 SBP (mmHg): 138 DBP (mmHg): 61 Stage: STAGE 1 Duration (min): 0 min : 59 sec HR (bpm): 101 SBP (mmHg): 138 DBP (mmHg): 61 Stage: RECOVERY Duration (min): 1 min : 0 sec HR (bpm): 104 SBP (mmHg): 129 DBP (mmHg): 38 Stage: RECOVERY Duration (min): 2 min : 0 sec HR (bpm): 104 SBP (mmHg): 129 DBP (mmHg): 38 Stage: RECOVERY Duration (min): 3 min : 0 sec HR (bpm): 102 SBP (mmHg): 129 DBP (mmHg): 38 Stage: RECOVERY Duration (min): 3 min : 27 sec HR (bpm): 101 SBP (mmHg): 129 DBP (mmHg): 38 Rest HR: 92 bpm Peak HR: 106 bpm Rest Sys BP: 138 mmHg Peak Sys BP: 129 mmHg Max Pred HR: 142 bpm % Max Pred HR: 75 % Target HR: 121 bpm Max RPP: 13,674 bpm*mmHg Termination Reason: Completed protocol Cardiac Symptoms: Shortness of breath Total Time: 1 min : 0 sec Rest Velez BP: 61 mmHg Peak Velez BP: 38 mmHg Total Dose: 0.4 mg Resting ECG Sinus rhythm, LBBB. Stress ECG No ST changes. Arrhythmias None. Report Signatures
--- NOTE | 2024-06-11 09:39 | ECHO_ITS ---
Patient Info Name: Hetal Stone Age: 78 years : 1945 Gender: Female Ht: 63 in Wt: 167 lbs BSA: 1.86 m2 HR: 90 bpm BP: 138 / 61 mmHg Heart Rhythm: Sinus Rhythm Technical Quality: Fair Exam Date: 06/11/2024 10:53 AM Exam Location: Echo Lab Patient Status: Outpatient Admit Date: 06/11/2024 Staff Ordering Physician: Todd Sam DO Set Illustrator: Martina Reyes RDCS Attending Provider: Todd Sam DO Referring Physician: Flaco GEE; Exam Type: CA echo dop color flow w con Study Info Indications R06.09 - Other forms of dyspnea Complete two-dimensional, color flow and Doppler transthoracic echocardiogram is performed with contrast to opacify the left ventricle and to improve the deliniation of the left ventricle endocardial borders. Contrast/Agitated Saline Contrast/Ag. Saline: Definity Amount: 2.50 ml Administered By: Martina Reyes RDCS Existing IV Access: Yes IV Access Condition: patent with no signs of infiltration Site Condition: IV removed Summary 1. Definity contrast administered improved wall motion interpretation. 2. Left ventricular chamber dimension is normal. 3. Left ventricular systolic function is normal, estimated at 60-65%. 4. The left ventricular diastolic function is abnormal. 5. E/e' 18 is elevated. 6. There is mild aortic valve sclerosis. 7. No pulmonary hypertension, estimated pulmonary arterial systolic pressure is 34 mmHg. Left Ventricle E/e' 18 is elevated. Definity contrast administered improved wall motion interpretation. Left ventricular chamber dimension is normal. Left ventricular systolic function is normal, estimated at 60-65%. The left ventricular diastolic function is abnormal. Right Ventricle Right ventricular chamber dimension is normal. Right ventricular systolic function is normal. Left Atria Left atrial chamber dimension is normal. Right Atria Right atrial chamber dimension is normal. Aortic Valve The aortic valve is trileaflet. There is mild aortic valve sclerosis. There is no aortic valve stenosis. There is no aortic valve regurgitation. Pulmonic Valve There is no pulmonic regurgitation. Mitral Valve There is no mitral valve stenosis. There is no mitral valve regurgitation. Tricuspid Valve There is no tricuspid valve regurgitation. No pulmonary hypertension, estimated pulmonary arterial systolic pressure is 34 mmHg. Pericardium/Pleural There is no pericardial effusion. Inferior Vena Cava Normal inferior vena cava with >50% collapse upon inspiration consistent with normal right atrial pressure, 5 mmHg. Aorta The aortic root size at the sinus of Valsalva is normal. Left Ventricular Outflow Tract Name Value Normal LVOT 2D LVOT Diameter 1.99 cm LVOT Doppler LVOT Peak Gradient 8 mmHg LVOT Mean Gradient 4 mmHg LVOT VTI 23.73 cm LVOT VTI/AV VTI Ratio 0.91 LVOT Stroke Volume 73.59 ml LVOT CO 6.67 l/min LVOT CI 3.59 L/min/m2 Pulmonic Valve
[2024-06-11] MEDS: PERFLUTREN LIPID MICROSPHERES 1.5 ML VIAL DILUTED TO 10 ML TOTAL VOLUME IV PUSH (12:00)
--- NOTE | 2024-06-11 12:51 | IVDEFINITY ---
Prior to administration of IV Definity the patient was educated on the risks and benefits of the imaging enhancing agent including potential adverse side effects. The patient verbalized understanding. Allergies were verified. No exclusion criteria were identified and at least one of the following inclusion criteria were met: 1) physician request, 2) patient technically difficult to image (per the [place] [employer] Echocardi[employer] guidelines of two or more segments not discernable within the apical view), or 3) questionable left ventricular function. ?
== END 2024-06-11 09:18 | disposition home or self-care (01) ==
PROVIDERS: PCP Family Medicine; Visit Provider Internal Medicine Cardiovascular Disease
DX: R06.09 Other forms of dyspnea (principal); I50.30 Unspecified diastolic (congestive) heart failure; I35.8 Other nonrheumatic aortic valve disorders
CPT/HCPCS: 78452; 93017; A9502; C8929; J2785; Q9957

== ENCOUNTER 2024-07-17 15:57 | Outpatient (CLI) | payer MEDICARE, SELFPAY ==
[2024-07-17 16:29] LABS: Basophils Percent Auto 0.5 % (0.2-1.2); Eosinophils Absolute Auto 0.1 K/mm3 (0-0.3); Eosinophils Percent Auto 1.9 % (0-4.4); Hematocrit 37.6 % (37.0-47.0); Hemoglobin 11.7 g/dL (12.0-15.0); Immature Granulocyte Absolute 0.02 K/mm3 (0.00-0.031); Immature Granulocyte Percent A 0.3 % (0-0.5); Lymphocytes Absolute Auto 0.87 K/mm3 (0.9-3.2); Lymphocytes Percent Auto 14.7 % (18.3-44.2); Mean Corpuscular HGB Conc 31.1 g/dl (32-36); Mean Corpuscular Hemoglobin 29.7 pg (26-34); Mean Corpuscular Volume 95.4 fl (80-100); Monocytes Absolute Auto 0.5 K/mm3 (0.1-0.6); Monocytes Percent Auto 8.8 % (2.6-8.5); Neutrophils Absolute Auto 4.4 K/mm3 (1.3-6.7); Neutrophils Percent Auto 73.8 % (45.5-73.1); Platelet Count Result 241 k/mm3 (150-375); Red Blood Count 3.94 M/mm3 (4.2-5.4); Red Cell Distribution Width 13.2 % (11.5-14.5); White Blood Count 5.9 K/mm3 (4.5-10.0)
[2024-07-17 16:42] LABS: Alanine Aminotransferase 13 U/L (6-35); Albumin Level 3.7 g/dL (3.5-5.1); Alkaline Phosphatase 82 U/L (38-126); Aspartate Amino Transferase 28 U/L (14-36); Bilirubin,Total 0.8 mg/dL (0.2-1.3); Blood Urea Nitrogen 17 mg/dL (7-17); Calcium 8.8 mg/dL (8.4-10.2); Carbon Dioxide > 40 mmol/L (22-30); Chloride 85 mmol/L (98-107); Estimated Glomerular Filt Rate 34; Glucose 87 mg/dL (65-110); Sodium 136 mmol/L (137-145)
[2024-07-17 17:35] LABS: Iron 119 ug/dL (37-170)
[2024-07-17 17:44] LABS: Percent Iron Saturation 36 % (20-50)
== END 2024-07-17 15:58 | disposition home or self-care (01) ==
LOC: ANHLAB 16:02
PROVIDERS: PCP Family Medicine; Visit Provider Physician Assistant
DX: I50.30 Unspecified diastolic (congestive) heart failure (principal); I48.0 Paroxysmal atrial fibrillation; D64.9 Anemia, unspecified; D50.0 Iron deficiency anemia secondary to blood loss (chronic)
CPT/HCPCS: 36415; 80053; 83540; 83550; 85025

== ENCOUNTER 2024-10-10 14:19 | Outpatient (CLI) | payer MEDICARE, SELFPAY ==
[2024-10-10 16:49] LABS: Blood Urea Nitrogen 29 mg/dL (7-17); Calcium 9.4 mg/dL (8.4-10.2); Carbon Dioxide > 40 mmol/L (22-30); Chloride 94 mmol/L (98-107); Estimated Glomerular Filt Rate 24; Glucose 79 mg/dL (65-110); Potassium 3.2 mmol/L (3.4-5.0); Sodium 138 mmol/L (137-145)
== END 2024-10-10 14:20 | disposition home or self-care (01) ==
LOC: ANHLAB 14:21
PROVIDERS: PCP Family Medicine; Visit Provider Student in an Organized Health Care Education/Training Program
DX: E87.6 Hypokalemia (principal)
CPT/HCPCS: 36415; 80048

== ENCOUNTER 2025-01-10 13:15 | Outpatient (CLI) | payer MEDICARE, SELFPAY ==
--- NOTE | ~2025-01-10 | US_ITS ---
Limited Abdominal Sonogram: Real-time sonographic imaging of the right upper quadrant was performed. Clinical History: Cirrhosis Findings: The liver appears normal with no evidence of mass lesion or bile duct dilatation. Main por heather vein demonstrates normal direction of flow. The gallbladder is well distended, and contains small layering gallstones. No gallbladder wall thickening. The common bile duct measures 6 mm. The visual ized pancreas, aorta, and IVC are unremarkable. Impression: Cholelithiasis. Reviewed, dictated and finalized at location M. Impression: Cholelithiasis.
--- OUTSIDE RECORDS SUMMARY | 2025-01-10 15:00 | XMS_ITS | Clinical Summary ---
Author Organization [facility] Address [address] [place] [address] Care Team Providers Care Tin Assorter Name Role Phone Ray Nelson MD Primary Care Provider [phone] Yohannes Dunham MD Unavailable Unavailabl e Allergies No known active allergies Medications aspirin (ASPIRIN CHILDRENS) 81 MG chewable tablet Chew 1 tablet by mouth daily. 6 Active cloNIDine (CATAPRES) 0.1 MG tablet Catapres (clonidine hcl) tablet 0.1 mg; take 1 tablet by mouth at bedtime; 0; -Oct-2015; Active 6 Active montelukast 10 MG tablet Take 1 tablet by mouth daily. 6 Active NIFEdipine 60 MG 24 hr tablet Take 1 tablet by mouth daily. 6 Active tiotropium (SPIRIVA HANDIHALER) 18 MCG inhalation capsule Spiriva with HandiHaler (tiotropium bromide) capsule, w/inhalation device 18 mcg; inhale 1 contents of capsule by mouth once a day; 0; -Oct-2015; Active 6 Active PROAIR HFA 108 (90 BASE) MCG/ACT inhaler USE 2 PUFFS Q 4 H PRF SOB 1 7 Active ibuprofen 200 MG tablet Take 200 mg by mouth every 6 (six) hours as needed for Pain. Active diphenhydrAMINE 25 MG capsule Take 25 mg by mouth nightly at bedtime. Active COMPRESSION STOCKINGSIndica tions:Localized edema 30-40mmHG knee high compression stockings 2 Container 1 8 Active Active Problems Problem Noted Date Diagnosed Date PAD (peripheral artery disease) 07/10/2017 PFO (patent foramen ovale) ([facility]) 06/27/2016 Polycythemia 06/27/2016 COPD (chronic obstructive pu lmonary disease) ([facility]) 06/27/2016 Lung cancer ([facility]) 06/27/2016 Mixed hyperlipidemia 06/27/2016 Anxiety 06/27/2016 Depression 06/27/2016 Abdominal aortic aneurysm without rupture 2015 Aneurysm of thoracic aorta 06/27/2016 GERD (gastroesophageal reflux disease) 6 Family History Medical History Relation Comments Heart Attack Brother h/o VA Heart Attack Father h/o VA CHF Mother h/o CHF Heart Attack Paternal Grandfather h/o VA h/o coronary thrombus Paternal Grandmother Coronary artery disease Neg Hx No sylwia ture coronary artery disease Relation Status Comments Brother Father Mother Paternal Grandfather Paternal Grandmother Social History Tobacco Use Types Packs/Day Years Used Date Smoking Tobacco: Some Days Smokeless Tobacco: Never Tobacco Cessation:Ready to Q uit: Yes; Counseling Given: Yes Alcohol Use Standard Drinks/Week Comments Yes 0 (1 standard drink = 0.6 oz pur e alcohol) Social Comments Unknown Sex and Gender Information Value Date Recorded Sex Assigned at Not on file Legal Sex Female 10:12 PM CDT Gender Identity Not on file Sexual Orientation Not on file Occupation Industry Job Start Date Job End Date Retired Not on file Not on file Not on file Last Filed Vital Signs Vital Sign Reading Time Taken Comments Blood Pressure 124/68 05/31/2018 2:43 PM CDT Pulse 91 05/31/2018 2:43 PM CDT Temperature - - Respiratory Rate 16 05/31/2018 2:43 PM CDT Oxygen Saturation 91% 05/31/2018 2:43 PM CDT Inhaled Oxygen Concentration - - Weight 67.6 kg (149 lb) 05/31/2018 2:43 PM CDT Height 161.3 cm (5' 3.5 ) 05/31/2018 2:43 PM CDT Body Mass Index 25.98 05/31/2018 2:43 PM CDT Plan of Treatment Health Maintenance Due Date Last Done Comments ASCVD LDL 1945 ASCVD Statin 1945 Pneumococcal Vaccine: 65+ Ye ars (1 of 2 - PCV) 1951 Hepatitis C 1963 DTaP, Tdap and Td Vaccines ( 1 - Tdap) 1964 Zoster Vaccines (1 of 2) 1995 Annual Medicare Wellness Visit 2010 Dexa Scan (General) 2010 RSV Immunization or 60+ Years (1 - 1-dose 75+ series) 2020 COVID-19 Vaccine (1 - 2023-2 5 season) 2024 Influenza Adult (#1) 2024 Meningococcal B Vaccine Aged Out No l onger eligible based on patient's age to complete this topic Meningococcal Vaccine Aged Out No irma ambrose eligible based on patient's age to complete this topic RSV Immunizations Under 20 Months Aged Out No longer eligible based on patient's age to complete this topic Insurance MEDICARE [facility]IC[facility] Care Teams Tin Assorter Relationship Specialty Start Date End Date Ray Nelson MD [address] [place] [phone] PCP - General INTERNAL MEDICINE 06/16/16 Yohannes Dunham MD [address] [place] [id number] [place] Business Control Specialist CARDIOVASCULAR DISEASE 06/16/16
--- OUTSIDE RECORDS SUMMARY | 2025-01-10 15:00 | XMS_ITS | Encounter Summary ---
Author Organization [facility] Address [facility] [place] [address] Care Team Providers Care Core Manager Name Role Phone Ray Nelson MD Primary Care Provider [phone] Yohannes Dunham MD Unavailable Unavailabl e Jay Jay Hay MD Unavailable Unavailab le Encounter Details Date Type Department Care Team (Late st Contact Info) Description 03/11/2016 [facility] [address] [place] [address] Abdullahi Beltran MD Social History Tobacco Use Types Packs/Day Years Used Date Smoking Tobacco: Some Days Alcohol Use Standard Drinks/Week Comments Yes 0 [...] file Not on file Not on file documented as of this encounter Plan of Treatment Not on file documented as of this encounter Visit Diagnoses Not on filedocumented in this encounter Care Teams Core Manager Relationship Specialty Start Date End Date Ray Nelson MD [address] [place] [address] PCP - General INTERNAL MEDICINE 06/16/16 Yohannes Dunham MD [address] [place] [address] [place] Still Photographer CARDIOVASCULAR DISEASE 06/16/16 Jay Jay Hay MD [address] [place] [address] [place] Still Photographer INTERVENTIONAL CARDIOLOGY 03/01/18 12/11/18 documented as of this encounter
--- OUTSIDE RECORDS SUMMARY | 2025-01-10 15:00 | XMS_ITS | Patient Health Summary ---
Author Organization [facility] [employer] Address [address] [place] [address] Care Team Providers Care Student Finance Specialist Name Role Phone Donald Macario MD Primary Care Provider [phone] Note from [facility],non-owned Affiliates and Associated Physician Practices is amultiple site organization consisting of ambulatory clinics and hospital sitesin [place], [place], [place] and [place]. This disclosure is being madepursuant to the Care Everywhere program and may not contain all information available regarding this patient. Last updated 18.[facility] Allergies No known active allergies Medications * Be aware that medications may not be up to date on this document. Alwaysverify current medications with the patient. * albuterol (PROVENTIL;VENTOLIN) (2.5 MG/3ML) 0.083% nebulizer solution Inhale 2.5 mg by mouth 4 times daily as needed for Shortness of Breath or Wheezing * ALPRAZolam (XANAX) 0.5 MG tablet Take 0.5 mg by mouth 3 times daily * aspirin (ASPIRIN) 81 MG chew tablet Take 81 mg by mouth once daily * benzonatate (TESSALON) 100 MG capsule Take 100 mg by mouth 3 times daily as needed for Cough * buPROPion SR 12hr (ZYBAN) 150 MG tablet Take 150 mg by mouth 2 times daily * busPIRone (BUSPAR) 10 MG tablet Take 10 mg by mouth 3 times daily * citalopram (CELEXA) 40 MG tablet Take 40 mg by mouth once daily * clopidogrel (PLAVIX) 75 MG tablet Take 75 mg by mouth once daily * cyclobenzaprine (FLEXERIL) 5 MG tablet Take 5 mg by mouth 3 times daily as needed * furosemide (LASIX) 40 MG tablet Take 40 mg by mouth once daily * guaiFENesin ER 12hr (MUCINEX) 600 MG tablet Take 600 mg by mouth every 12 hours * losartan (COZAAR) 100 MG tablet Take 100 mg by mouth once daily * nicotine (NICODERM CQ) 21 MG/24HR patch Apply 1 patch to skin once daily * pantoprazole EC (PROTONIX) 40 MG tablet Take 40 mg by mouth 2 times daily * plecanatide (TRULANCE) 3 MG tablet Take 3 mg by mouth once daily as needed * potassium chloride ER (KLOR-CON M) 20 MEQ tablet Take 20 mEq by mouth once daily * promethazine (PHENERGAN) 25 MG tablet Take 25 mg by mouth every 6 hours as needed for Nausea/Vomiting * Roflumilast (DALIRESP) 250 MCG tablet Take 250 mcg by mouth once daily * traMADol (ULTRAM) 50 MG tablet Take 50 mg by mouth every 6 hours as needed for Pain Social History Tobacco Use Types Packs/Day Years Used Date Smoking Tobacco: Never Assessed AUDIT-C Answer Date Recorded Q1: How often do you have a drink containing alcohol? 4 or more times a week 04/03/2022 Q2: How many drinks containi ng alcohol do you have on a typical day when you are drinking? 3 or 4 Q3: How often do you have si x or more drinks on one occasion? Never 04/03/2022 Sex and Gender Information Value Date Recorded Sex Assigned at Not on file Gender Identity Not on file Sexual Orientation Not on file Last Filed Vital Signs Vital Sign Reading Time Taken Comments Blood Pressure 134/59 04/04/2022 11:19 AM CDT Pulse 77 04/04/2022 11:19 AM CDT Temperature 36.4 C (97.5 F) 04/04/2022 11:19 AM CDT Respiratory Rate 22 04/04/2022 11:1 9 AM CDT Oxygen Saturation 100% 04/04/2022 11: 19 AM CDT 2L NC - baseline Inhaled Oxygen Concentration - - Weight 73.9 kg (163 lb) 04/03/2022 11:4 7 AM CDT Height 160 cm (5' 3 ) 04/03/2022 11:47 AM CDT Body Mass Index 28.87 04/03/2022 11:47 AM CDT Procedures * SARS-COV-2 (COVID-19) RAPID(Performed 04/03/2022) * DRUG SCREEN TOX LIMITED BLD PNL 3 INHOUSE(Performed 04/03/2022) * TSH REFLEX FREE T4(Performed 04/03/2022) * COMPREHENSIVE METABOLIC PANEL(Performed 04/03/2022) * CBC W AUTO DIFFERENTIAL(Performed 04/03/2022) Results * SARS-COV-2 (COVID-19) RAPID (04/03/2022 5:33 PM CDT) COVID-19 PCR Not detected Not detected 04/03/20 6:20 PM CDT [facility] Microbiology SPECIMEN FROM NASOPHARYNGEAL STRUCTURE / Unknown Collection / Unknown 04/03/2022 5:33 PM CDT 04/03/2022 5:37 PM CDT Narrative [facility] - 04/03/2022 6:20 PM CDT The CepYuMingleid Xpert Xpress SARS-COV-2 has been authorized by the Food and Drug Administration (FDA) under an Emergency Use Authorization (EUA). This test has been validated in accordance with the FDA's guidance document Policy for Diagnostic Testing in Laboratories Certified to perform High Complexity Testing under CLIA prior to Emergency Use Authorization for Coronavirus Disease-2019 during the Public Health Emergency issued on December 29, 2019. FDA independent review of this validation is pending. This test is only authorized for the duration of the time the declaration that circumstances exist justifying the authorization of emergency use of in vitro diagnostic tests for detection of SARS-COV-2 virus and/or diagnosis of COVID-19 infection under 564(b) (1) of the Act. 21 U.S.C. 360bbb-3 (b) (1), unless the authorization is terminated or revoked sooner. Fact Sheets for this EUA assay are available upon request. Argentina Zimmerman MD LAB - MICROBIOLOGY O RDERABLES [facility] [address] [place] [id number] * (ABNORMAL) DRUG SCREEN TOX LIMITED BLD PNL 3 INHOUSE (04/03/2022 2:33 PM CDT) Acetaminophen <3.0(L) 10.0 - 30.0 ug/mL 04/03/2022 2:55 PM CDT [facility] Ethanol <10.0 <10 mg/dL 04/03/2022 2:55 PM CDT [facility] Salicylate <5.0(L) 15.0 - 30.0 mg/dL 04/03/2022 2:55 PM CDT [facility] Blood BLOOD SPECIMEN / Unknown Venipuncture / Unknown 04/03/2022 2:33 PM CDT 04/03/2022 2:37 PM CDT Narrative [facility] - 04/03/2022 2:55 PM CDT M ACETAMINOPHEN COMMENT Critical values: 4 Hours Post Ingestion: Critical value > 200 g/mL 12 Hours Post Ingestion: Critical value > 50 g/mL For acute ingestion, please refer to Acetaminophen nomogram to determine the risk of toxicity based on time since ingestion and acetaminophen level (see link provided). Note the nomogram disclaimer. WARNING: Assessing the potential toxicity of an acetaminophen level on a standard risk nomogram must take into consideration many factors including any uncertainty of the time since ingestion or the possibility of other medications that may alter the peak level. Contact the [place] [facility] at or reserved for healthcare professionals to assist you in evaluating potentially toxic acetaminophen levels. Kenan Elizondo MD LAB - CHEMISTRY ORD ERABLES [facility] [address] [place] [address] * TSH REFLEX FREE T4 (04/03/2022 2:33 PM CDT) TSH 0.979 0.350 - 4.940 uIU/mL 04/03/2022 3:15 PM CDT [facility] Blood BLOOD SPECIMEN / Unknown Venipuncture / Unknown 04/03/2022 2:33 PM CDT 04/03/2022 2:37 PM CDT Kenan Elizondo MD LAB - CHEMISTRY ORD ERABLES [facility] [address] [place] [address] * (ABNORMAL) CBC W AUTO DIFFERENTIAL (04/03/2022 2:33 PM CDT) WBC 7.8 4.4 - 10.7 x10E9/L 04/03/2022 2:50 PM CDT [facility] WBC Corrected 04/03/2022 2:50 PM CDT [facility] RBC 4.60 3.80 - 5.20 x10E12/L 04/03/2022 2:50 PM CDT [facility] Hemoglobin 9.5(L) 12.0 - 15.6 gm/dL 04/03/2022 2:50 PM CDT [facility] Hematocrit 34.7(L) 35.9 - 45.5 % 04/03/2022 2:50 PM CDT [facility] MCV 75.4(L) 80.7 - 98.3 fl 04/03/2022 2:50 PM CDT [facility] MCH 20.7(L) 26.7 - 34.0 pg 04/03/2022 2:50 PM CDT [facility] MCHC 27.4(L) 30.8 - 35.9 gm/dL 04/03/2022 2:50 PM CDT [facility] Platelet Count 348 153 - 416 x10E9/L 04/03/2022 2:50 PM CDT [facility] RDW-CV 16.6(H) 12.1 - 14.9 % 04/03/2022 2:50 PM CDT [facility] MPV 9.4 9.4 - 12.9 fl 04/03/2022 2:50 PM CDT [facility] Neutrophils % 76.0(H) 44.0 - 73.0 % 04/03/2022 2:50 PM CDT [facility] Lymphocytes % 12.9(L) 20.0 - 43.0 % 04/03/2022 2:50 PM CDT [facility] Monocytes % 8.5 5.0 - 13.0 % 04/03/2022 2:50 PM CDT [facility] Eosinophils % 1.3 0.0 - 6.0 % 04/03/2022 2:50 PM CDT [facility] Basophils % 0.9 0.0 - 2.0 % 04/03/2022 2:50 PM CDT [facility] Immature Granulocytes 0.4 0 - 1 % 04/03/2022 2:50 PM CDT [facility] Neutrophil Absolute 5.91 2.01 - 7.14 x10E9/L 04/03/2022 2:50 PM CDT [facility] Lymphocytes Absolute 1.00(L) 1.07 - 3.94 x10E9/L 04/03/2022 2:50 PM CDT [facility] Monocytes Absolute 0.66 0.26 - 1.07 x10E9/L 04/03/2022 2:50 PM CDT [facility] Eosinophils Absolute 0.10 0 - 0.47 x10E9/L 04/03/2022 2:50 PM CDT [facility] Basophils Absolute 0.07 0 - 0.08 x10E9/L 04/03/2022 2:50 PM CDT [facility] Immature Granulocytes Absolute 0.03 0.00 - 0.06 x10E9/L 04/03/2022 2:50 PM CDT [facility] nRBC Auto 0 /100 WBC 04/03/2022 2:50 PM CDT [facility] Blood BLOOD SPECIMEN / Unknown Venipuncture / Unknown 04/03/2022 2:33 PM CDT 04/03/2022 2:37 PM CDT Kenan Elizondo MD LAB - HEMATOLOGY OR DERABLES [facility] [address] [place] [address] * (ABNORMAL) COMPREHENSIVE METABOLIC PANEL (04/03/2022 2:33 PM CDT) [facility] Glucose 104 70 - 105 mg/dL 04/03/2022 2:55 PM CDT [facility] Sodium 136 136 - 145 mmol/L 04/03/2022 2:55 PM CDT [facility] Potassium 4.0 3.5 - 5.1 mmol/L 04/03/2022 2:55 PM CDT [facility] Chloride 101 98 - 107 mmol/L 04/03/2022 2:55 PM CDT [facility] CO2 27 23 - 31 mmol/L 04/03/2022 2:55 PM CDT [facility] Calcium 8.8 8.4 - 10.4 mg/dL 04/03/2022 2:55 PM CDT [facility] Anion Gap 8 8 - 18 mmol/L 04/03/2022 2:55 PM CDT [facility] BUN 13 9.8 - 20.1 mg/dL 04/03/2022 2:55 PM CDT [facility] Creatinine 1.06 0.57 - 1.11 mg/dL 04/03/2022 2:55 PM CDT [facility] Alkaline Phosphatase 78 40 - 150 U/L 04/03/2022 2:55 PM CDT [facility] ALT 9 0 - 61 U/L 04/03/2022 2:55 PM CDT [facility] AST 15 5 - 34 U/L 04/03/2022 2:55 PM CDT [facility] Protein Total 6.2(L) 6.4 - 8.3 gm/dL 04/03/2022 2:55 PM CDT [facility] Albumin 3.6 3.2 - 4.6 gm/dL 04/03/2022 2:55 PM CDT [facility] Bilirubin Total 0.5 0.2 - 1.2 mg/dL 04/03/2022 2:55 PM CDT [facility] eGFR by CKD-EPI 54(L) >=90 mL/min/1.7 3 m2 04/03/2022 2:55 PM CDT [facility] Blood BLOOD SPECIMEN / Unknown Venipuncture / Unknown 04/03/2022 2:33 PM CDT 04/03/2022 2:37 PM CDT Kenan Elizondo MD LAB - CHEMISTRY ORD ERABLES [facility] [address] [place] [address] Care Teams Student Finance Specialist Relationship Specialty Start Date End Date Donald Macario MD [address] [place] [address] PCP - General Internal Medicine 04/03/22
--- OUTSIDE RECORDS SUMMARY | 2025-01-10 15:00 | XMS_ITS | Referral Summary ---
Author Organization [facility] [employer] Address [address] [place] [address] Care Team Providers Care Sleeve Wheel Maker Name Role Phone Donald Macario MD Primary Care Provider [phone] Source Comments [facility] [employer],non-owned Affiliates and Associated Physician Practices is amultiple site organization consisting of ambulatory clinics and hospital sitesin [place], [place], [place] and [place]. This disclosure is being madepursuant to the Care Everywhere program and may not contain all information available regarding this patient. Last updated 18.[facility] [employer] Allergies No known active allergies Medications * Be aware that medications may not be up to date on this document. Alwaysverify current medications with the patient. Medication Sig Dispensed Refills Start Date End Date Status albuterol (PROVENTIL;VENTOLIN) (2.5 MG/3ML) 0.083% nebulizer solution Inhale 2.5 mg by mouth 4 times daily as needed for Shortness of Breath or Wheezing Active ALPRAZolam (XANAX) 0.5 MG tablet Take 0.5 mg by mouth 3 times daily Active aspirin (ASPIRIN) 81 MG chew tablet Take 81 mg by mouth once daily Active benzonatate (TESSALON) 100 MG capsule Take 100 mg by mouth 3 times daily as needed for Cough Active buPROPion SR 12hr (ZYBAN) 150 MG tablet Take 150 mg by mouth 2 times daily Active busPIRone (BUSPAR) 10 MG tablet Take 10 mg by mouth 3 times daily Active citalopram (CELEXA) 40 MG tablet Take 40 mg by mouth once daily Active clopidogrel (PLAVIX) 75 MG tablet Take 75 mg by mouth once daily Active cyclobenzaprine (FLEXERIL) 5 MG tablet Take 5 mg by mouth 3 times daily as needed Active furosemide (LASIX) 40 MG tablet Take 40 mg by mouth once daily Active guaiFENesin ER 12hr (MUCINEX) 600 MG tablet Take 600 mg by mouth every 12 hours Active losartan (COZAAR) 100 MG tablet Take 100 mg by mouth once daily Active nicotine (NICODERM CQ) 21 MG/24HR patch Apply 1 patch to skin once daily Active pantoprazole EC (PROTONIX) 40 MG tablet Take 40 mg by mouth 2 times daily Active plecanatide (TRULANCE) 3 MG tablet Take 3 mg by mouth once daily as needed Active potassium chloride ER (KLOR-CON M) 20 MEQ tablet Take 20 mEq by mouth once daily Active promethazine (PHENERGAN) 25 MG tablet Take 25 mg by mouth every 6 hours as needed for Nausea/Vomiting Active Roflumilast (DALIRESP) 250 MCG tablet Take 250 mcg by mouth once daily Active traMADol (ULTRAM) 50 MG tablet Take 50 mg by mouth every 6 hours as needed for Pain Active Social History Tobacco Use Types Packs/Day Years [...] Mass Index 28.87 04/03/2022 11:47 AM CDT Plan of Treatment Not on file Care Teams Sleeve Wheel Maker Relationship Specialty Start Date End Date Donald Macario MD [address] [place] [id number] PCP - General Internal Medicine 04/03/22
--- OUTSIDE RECORDS SUMMARY | 2025-01-10 15:00 | XMS_ITS ---
Author Organization [facility] [employer] Address [address] [address] Care Team Providers Care Senior Cobol Developer Name Role Phone Ruchi Brito Primary Care Provider SEJAL Newton Unavailable [phone] Encounters Encounter Location Date Provider Diagnosis [facility] [address] [place] [id number] 12/10/2024 SEJAL OWEN PLAN OF TREATMENT Next Appt Details Provider Name:SEJAL OWEN, 0 01/14/2025 10:30:00 AM, [address] [facility] [facility] [address], [address], [place], [address], Progress Notes * Hetal STONEDOB: [birth year] (79 yo F)Acc No.[id number]:12/10/2024 Patient: Hetal STONE :1945 Age:79 Y Sex:Female [address] [place] [place] [address] * true * Date:
--- OUTSIDE RECORDS SUMMARY | 2025-01-10 15:00 | XMS_ITS ---
Author Organization [facility] [employer] Address [address] [address] Care Team Providers Care Building Rental Manager Name Role Phone Ruchi Brito Primary Care Provider SEJAL Newton Unavailable [phone] Encounters Encounter Location Date Provider Diagnosis [facility] Pall[facility] [address] [place] [phone] 12/11/2024 SEJAL OWEN PLAN OF TREATMENT Next Appt Details Provider Name:SEJAL OWEN, 0 01/14/2025 10:30:00 AM, [address] [facility], [address], [place], [address], Progress Notes * Hetal STOENDOB: [birth year] (79 yo F)Acc No.[id number]:12/11/2024 Patient: Hetal STONE :1945 Age:79 Y Sex:Female [address] [place] [address] * true * Date:
--- OUTSIDE RECORDS SUMMARY | 2025-01-10 15:00 | XMS_ITS | Encounter Summary ---
Author Organization [facility] Address [facility] [place] [address] Care Team Providers Care Claims Representative Name Role Phone Ray Nelson MD Primary Care Provider [phone] Yohannes Dunham MD Unavailable Unavailabl e Jay Jay Hay MD Unavailable Unavailab le Encounter Details Date Type Department Care Team (Late st Contact Info) Description 11/04/2016 [facility] [address] [place] [address] Jay Jay Hay MD Social History Tobacco Use Types Packs/Day [...] on filedocumented in this encounter Care Teams Claims Representative Relationship Specialty Start Date End Date Ray Nelson MD [address] [place] [address] PCP - General INTERNAL MEDICINE 06/16/16 Yohannes Dunham MD [address] [place] [address] [employer] Analytical Clerk CARDIOVASCULAR DISEASE 06/16/16 Jay Jay Hay MD [address] [place] [address] [employer] Analytical Clerk INTERVENTIONAL CARDIOLOGY 03/01/18 2 documented as of this encounter
--- OUTSIDE RECORDS SUMMARY | 2025-01-10 15:00 | XMS_ITS | Encounter Summary ---
Author Organization [facility] Address [facility] [place] [address] Care Team Providers Care Geodetic Technician Name Role Phone Ray Nelson MD Primary Care Provider [phone] Yohannes Dunham MD Unavailable Unavailabl e Jay Jay Hay MD Unavailable Unavailab le Encounter Details Date Type Department Care Team (Late st Contact Info) Description 01/14/2018 Abstract [facility] [address] [place] [address] , Generic ConversionMD Social History Tobacco Use Types Packs/Day Years [...] on filedocumented in this encounter Care Teams Geodetic Technician Relationship Specialty Start Date End Date Ray Nelson MD [address] [place] [address] PCP - General INTERNAL MEDICINE 06/16/16 Yohannes Dunham MD [address] [place] [address] [employer] Senior Associate CARDIOVASCULAR DISEASE 06/16/16 Jay Jay Hay MD [address] [place] [address] [employer] Senior Associate INTERVENTIONAL CARDIOLOGY 03/01/18 12/11/18 documented as of this encounter
--- OUTSIDE RECORDS SUMMARY | 2025-01-10 15:00 | XMS_ITS ---
Author Organization [facility] Address [address] [address] Care Team Providers Care Card Stripper Name Role Phone Jennmichelle Ruchi Primary Care Provider SEJAL Newton Unavailable [phone] ALLERGIES Allergen (clinical drug ingredient) Drug/Non Drug Allergy documented on EMR Reaction Allergy Type Onset Date Status melatonin Melatonin Unknown Drug Allergy Active REASON FOR VISIT Follow up COPD, Follow up CHF, Follow up Depression and Anxiety, Follow up Cervical radiculopathy MEDICATIONS Medication SIG (Take, Route, Frequency, Duration) Notes Start Date End Date Status ALPRAZolam 0.5 MG TAKE 1 TABLET BY MOUTH THREE TIMES A DAY for 30 11/04/2024 Active Potassium Chloride ER 20 MEQ TAKE 1 TABLET BY MOUTH TWICE A DAY Oral Active SEROquel 50 MG 1 tablet at bedtime Orally Once a day for 30 day(s) Active Gabapentin 100 MG 100 Orally twice daily state controlled substance: [phone]; ISAIAS: [id number] Collaborative supervisor leaf spring fabrication: Dr. Nafisa Hubbard Active Ondansetron HCl 4 MG 1 tablet Orally every 8 hours as neede for n/v Active Sertraline HCl 100 MG take 1 tablet Oral once daily Active busPIRone HCl 10 MG 1 tablet Orally Twice a day Active traMADol HCl 50 MG 1.5 tablet as needed Oral every 6 hours as needed for pain for 30 day(s) Active ALPRAZolam 0.5 MG 1 tablet Oral three times daily for 30 day(s) Active diphenhydrAMINE HCl 25 MG 1 or 2 capsules Orally every 6 hours as needed for anxiety Active Ventolin HFA 108 (90 Base) MCG/ACT Inhalation Active Benzonatate 200 MG TAKE 1 CAPSULE BY MOUTH THREE TIMES A DAY NEEDED FOR COUGH Oral Active Acetaminophen Extra Strength 500 MG 2 tablets as needed Orally every 6 hrs Active Aspirin 81 81 MG 1 tablet Orally Once a day Active Ipratropium Peculiar 0.06 % 2 SPRAY INTRANASALLY TWICE A DAY NEEDED FOR ALLERGY SYMPTOMS ADMINISTER INTO EACH NOSTRIL Nasal Active Trelegy Ellipta 200-62.5-25 MCG/ACT 1 puff Inhalation Once a day Active Albuterol Sulfate HFA 108 (90 Base) MCG/ACT Inhalation Active Pantoprazole Sodium 40 MG 1 tablet Oral Once a day for 90 Days Active Clopidogrel Bisulfate 75 MG 1 tablet Oral Once a day Active Furosemide 40 MG take 1 tablet Oral once daily Active Roflumilast 250 MCG 1 tablet Oral Once a day Active Ferrous Sulfate 325 (65 Fe) MG TAKE 1 TABLET BY MOUTH TWICE A DAY WITH FOOD Oral for 30 Days Active buPROPion HCl ER (SR) 150 MG 1 tablet in the morning Orally Once a day for 30 day(s) Active SOCIAL HISTORY Tobacco Use: Social History Observation Description Date Details (start date - stop date) Former Smoker 10/31/1959 - 10/31/2019 Sex Assigned At : Social History Observation Description Sex Assigned At Unknown Tobacco Use/Smoking Question Answer Notes Are you a former smoker When did you start smoking? 10/31/1959 When did you stop smoking? 10/31/2019 Additional Findings: Tobacco User Heavy cigarett e smoker (20-39 cigs/day) VITAL SIGNS Height 5 ft 3 in in 12/17/2024 Heart Rate 73 /min 12/17/2024 Oximetry 99 % 12/17/2024 Blood pressure systolic 132 mm Hg 12/17/19 25 Blood pressure diastolic 70 mm Hg 025 Respiratory Rate 20 /min 12/17/2024 Temperature 96.5 degrees Fahrenheit 12/17/19 25 Encounters Encounter Location Date Provider Diagnosis [facility] [address] [place] [address] 12/17/2024 SEJAL LEXIE Chronic pain G89.29 ; COPD, severe J44.9 ; Encounter for palliative care Z51.5 and Cervical radiculopathy M54.12 ASSESSMENTS Encounter Date Diagnosis Assessment Notes Treatment Notes Treatment Clinical Notes Section Notes 12/17/2024 Chronic pain (ICD-10 - G89.29) Continue taking medications as prescribed. 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 12/17/2024 Encounter for palliative care (ICD-10 - Z51.5) PPS 40% Full Code Patient is not a candidate for hospice at this time. No recent hospitalization s. Dyspnea with moderate exertion, oxygen at 3 lpm via nasal cannula. 12/17/2024 Cervical radiculopathy (ICD-10 - M54.12) Continue gabapentin, Tramadol and Tylenol prn. Continue ROM exercises that were taught by PT. PLAN OF TREATMENT Medication Medication Name Sig Start Date Stop Date Notes Gabapentin 100 MG 100 Orally twice daily state controlled substance: [phone]; ISAIAS: [id number] Collaborative supervisor leaf spring fabrication: Dr. Nafisa Hubbard traMADol HCl 50 MG 1.5 tablet as needed Oral every 6 hours as needed for pain for 30 day(s) ALPRAZolam 0.5 MG 1 tablet Oral three times daily for 30 day(s) Ventolin HFA 108 (90 Base) MCG/ACT Inhalation Benzonatate 200 MG TAKE 1 CAPSULE BY MOUTH THREE TIMES A DAY NEEDED FOR COUGH Oral Acetaminophen Extra Strength 500 MG 2 tablets as needed Orally every 6 hrs Ipratropium Peculiar 0.06 % 2 SPRAY INTRANASALLY TWICE A DAY NEEDED FOR ALLERGY SYMPTOMS ADMINISTER INTO EACH NOSTRIL Nasal Trelegy Ellipta 200-62.5-25 MCG/ACT 1 puff Inhalation Once a day Albuterol Sulfate HFA 108 (90 Base) MCG/ACT Inhalation Roflumilast 250 MCG 1 tablet Oral Once a day Treatment Notes Assessment Notes Cervical radiculopathy Continue gabapent in, Tramadol and Tylenol prn. Continue ROM exercises that were taught by PT. Next Appt Details Follow Up: 4 Weeks, Reason: Cervical radiculopathy, COPD, CHF Provider Name:Praveena GUZMAN 01/14/2025 10:30:00 AM, [address], [address], [place], [address], Progress Notes * Hetal STONEDOB: [birth year] (79 yo F)Acc No.[id number]:12/17/2024 Progress Notes Patient: Hetal STONE Provider: SEJAL OWEN APN :1945 Age:79 Y Sex:Female Date:12/17/2024 [id number] Pcp:Ruchi Brito Subjective: * Chief Complaints: * Follow up COPDFollow up CHFFollow up Depression and AnxietyFollow up Cervical radiculopathy * HPI: Depression Screening: PHQ-2 (2015 Edition) Little interest or pleasure in doing things? Several days, Feeling down, depressed, or hopeless? Several days, Total Score 2. Palliative Care: Follow Up Visit 79 year old white female presenting for follow up and palliative care visit. present for the visit. C hronic Pain T akes Tramadol and gabapentin for pain. She has no pain at this time but states that she has no relief ever. She is wanting to have surgery for her cervical stenosis but was told she was not a candidate. states that he believes that the gabapentin has made a difference in pain as she does not complains about pain as often. She states she takes tramadol 1-2 times per day. Pain remains to be in left neck and left arm. 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 She is on 3L continuous oxygen. She does not ambulate much. She has a bedside commode that she keeps by the couch where she is most of the time. She does complain of dapsone with moderate exertion. A ABEBA genao reports that recent CT scan shows aneurysm to be about 6.4cm large. This is increase from last measurement. She will be seeing a vascular surgeon for recommendations when called to be scheduled. A nxiety/depression S he continues to use antidepressants and routine Xanax that is prescribed by a mental health specialist. She states that she is down because she wants to do things but her body does not allow her to do them due to the COPD and pain. . Advance care planning Full code. * ROS: General/Constitutional: Patient Endorses change in appetite, fatigue. Ophthalmologic: Patient Denies diminished visual acuity. ENT: Patient Endorses decreased hearing, decreased sense of smell and taste, decreased hearing, Denies difficulty swallowing. Admits Sore throat, Sore throat x 1 day Drainage in throat No fever or chills. Admits Swollen glands. Respiratory: Patient Denies chronic cough, Endorses shortness of breath with activities, oxygen use continuous. Cardiovascular: Patient dyspnea on exertion, weakness. Gastrointestinal: Patient Denies change in bowel habits, constipation, diarrhea. Genitourinary: Patient Denies difficulty urinating. Musculoskeletal: Patient Endorses arthritis, pain in shoulder(s), painful joints. Skin: Patient Endorses dry skin. Neurologic: Patient Endorses balance difficulty, loss of strength, gait abnormality, walker/rollator use. Psychiatric: Patient Endorses depressed mood, disabling anxiety at times. * Medical History: * Surgical History: Lung cancer surgery - 2 lower lobes right lung with lymph nodes removed 10/1986 * Hospitalization/Major Diagno stic Procedure: Unplanned - Inflamed gall bladder 10/2022Lung cancer surgery 10/1986 * Social History: Tobacco Use: Tobacco Use/Smoking Are you a former smoker, When did you start smoking? 10/31/1959, When did you stop smoking? 10/31/2019, Additional Findings: Tobacco User Heavy cigarette smoker (20-39 cigs/day). * Medications: TakingRoflumilast 250 MCG Tablet 1 tablet Oral Once a day Ipratropium Peculiar 0.06 % Solution 2 SPRAY INTRANASALLY TWICE A DAY NEEDED FOR ALLERGY SYMPTOMS ADMINISTER INTO EACH NOSTRIL Nasal Trelegy Ellipta 200-62.5-25 MCG/ACT Aerosol Powder Breath Activated 1 puff Inhalation Once a day Albuterol Sulfate HFA 108 (90 Base) MCG/ACT Aerosol Solution Inhalation Ventolin HFA 108 (90 Base) MCG/ACT Aerosol Solution Inhalation Benzonatate 200 MG Capsule TAKE 1 CAPSULE BY MOUTH THREE TIMES A DAY NEEDED FOR COUGH Oral Acetaminophen Extra Strength 500 MG Tablet 2 tablets as needed Orally every 6 hrs traMADol HCl 50 MG Tablet 1.5 tablet as needed Oral every 6 hours as needed for pain Gabapentin 100 MG Capsule Orally twice daily 2 caps in AM and 3 in PM, Notes to Pharmacist: state controlled substance: [phone]; ISAIAS: [id number] Collaborative supervisor leaf spring fabrication: Dr. Nafisa Del Castillorosemide 40 MG Tablet take 1 tablet Oral once daily buPROPion HCl ER (SR) 150 MG Tablet Extended Release 12 Hour 1 tablet in the morning Orally Once a day Ferrous Sulfate 325 (65 Fe) MG Tablet TAKE 1 TABLET BY MOUTH TWICE A DAY WITH FOOD Oral Pantoprazole Sodium 40 MG Tablet Delayed Release 1 tablet Oral Once a day Clopidogrel Bisulfate 75 MG Tablet 1 tablet Oral Once a day Aspirin 81 81 MG Tablet Chewable 1 tablet Orally Once a day diphenhydrAMINE HCl 25 MG Capsule 1 or 2 capsules Orally every 6 hours as needed for anxiety Ondansetron HCl 4 MG Tablet 1 tablet Orally every 8 hours as neede for n/v busPIRone HCl 10 MG Tablet 1 tablet Orally Twice a day Sertraline HCl 100 MG Tablet take 1 tablet Oral once daily Potassium Chloride ER 20 MEQ Tablet Extended Release TAKE 1 TABLET BY MOUTH TWICE A DAY Oral ALPRAZolam 0.5 MG Tablet TAKE 1 TABLET BY MOUTH THREE TIMES A DAY SEROquel 50 MG Tablet 1 tablet at bedtime Orally Once a day Taking Roflumilast 250 MCG Tablet 1 tablet Oral Once a day Taking Ipratropium Peculiar 0.06 % Solution 2 SPRAY INTRANASALLY TWICE A DAY NEEDED FOR ALLERGY SYMPTOMS ADMINISTER INTO EACH NOSTRIL Nasal Taking Trelegy Ellipta 200-62.5-25 MCG/ACT Aerosol Powder Breath Activated 1 puff Inhalation Once a day Taking Albuterol Sulfate HFA 108 (90 Base) MCG/ACT Aerosol Solution Inhalation Taking Ventolin HFA 108 (90 Base) MCG/ACT Aerosol Solution Inhalation Taking Benzonatate 200 MG Capsule TAKE 1 CAPSULE BY MOUTH THREE TIMES A DAY NEEDED FOR COUGH Oral Taking Acetaminophen Extra Strength 500 MG Tablet 2 tablets as needed Orally every 6 hrs Taking traMADol HCl 50 MG Tablet 1.5 tablet as needed Oral every 6 hours as needed for pain Taking Gabapentin 100 MG Capsule Orally twice daily 2 caps in AM and 3 in PM, Notes to Pharmacist: state controlled substance: [phone]; ISAIAS: [id number] Collaborative supervisor leaf spring fabrication: Dr. Nafisa Stokes Furosemide 40 MG Tablet take 1 tablet Oral once daily Taking buPROPion HCl ER (SR) 150 MG Tablet Extended Release 12 Hour 1 tablet in the morning Orally Once a day Taking Ferrous Sulfate 325 (65 Fe) MG Tablet TAKE 1 TABLET BY MOUTH TWICE A DAY WITH FOOD Oral Taking Pantoprazole Sodium 40 MG Tablet Delayed Release 1 tablet Oral Once a day Taking Clopidogrel Bisulfate 75 MG Tablet 1 tablet Oral Once a day Taking Aspirin 81 81 MG Tablet Chewable 1 tablet Orally Once a day Taking diphenhydrAMINE HCl 25 MG Capsule 1 or 2 capsules Orally every 6 hours as needed for anxiety Taking Ondansetron HCl 4 MG Tablet 1 tablet Orally every 8 hours as neede for n/v Taking busPIRone HCl 10 MG Tablet 1 tablet Orally Twice a day Taking Sertraline HCl 100 MG Tablet take 1 tablet Oral once daily Taking Potassium Chloride ER 20 MEQ Tablet Extended Release TAKE 1 TABLET BY MOUTH TWICE A DAY Oral Taking ALPRAZolam 0.5 MG Tablet TAKE 1 TABLET BY MOUTH THREE TIMES A DAY Taking SEROquel 50 MG Tablet 1 tablet at bedtime Orally Once a day DiscontinuedLosartan Potassium 100 MG Tablet 1 tablet Oral Once a day Discontinued Losartan Potassium 100 MG Tablet 1 tablet Oral Once a day * Allergies: Melatoninno[Allergies Verified] Objective: * Vitals: Inhaled Oxygen Flow Rate (L/min):3, BP:132/70mm Hg, HR:73/min, RR:20/min, Temp:96.5F, Oxygen sat %:99%, PPS:40%, Pain scale:00-10, PX:>6, Ht:5 ft 3 in. * Examination: General Examination: GENERAL APPEARANCE: pleasant, alert, well hydrated, in no acute distress. DISTRESS: None . PSYCH: Alert, Oriented, cooperative with exam, good eye contact, cognitive function intact. ENMT: pharynx normal, tonsils normal, no exudate. CV: WNL, no edema. RESP: Oxygen at 2.5 L per minute nasal cannula Diminished breath sounds throughout, even and unlabored. : Deferred. MUSCULOSKELETAL: Generalized Weakness, pain with ROM left shoulder, Decreased ROM left shoulder. SKIN: WNL. NEUROLOGIC: WNL, cooperative with exam. NECK/THYROID: neck supple, no cervical lymphadenopathy. EXTREMITIES: no edema. Assessment: * Assessment: 1. Chronic pain - G89.29 (Primary) 2. COPD, severe - J44.9 3. Encounter for palliative care - Z51.5 4. Cervical radiculopathy - M54.12 Plan: * Treatment: 2. COPD, severe Continue Roflumilast Tablet, 250 MCG, 1 tablet, Oral, Once a day; Continue Ipratropium Peculiar Solution, 0.06 %, 2 SPRAY INTRANASALLY TWICE A DAY NEEDED FOR ALLERGY SYMPTOMS ADMINISTER INTO EACH NOSTRIL, Nasal; Continue Trelegy Ellipta Aerosol Powder Breath Activated, 200-62.5-25 MCG/ACT, 1 puff, Inhalation, Once a day; Continue Albuterol Sulfate HFA Aerosol Solution, 108 (90 Base) MCG/ACT, Inhalation; Continue Ventolin HFA Aerosol Solution, 108 (90 Base) MCG/ACT, Inhalation; Continue Benzonatate Capsule, 200 MG, TAKE 1 CAPSULE BY MOUTH THREE TIMES A DAY NEEDED FOR COUGH, Oral. Clinical Notes: Continue oxygen at 3 liters per minute via nasal cannula. 3. Encounter for palliative care Continue ALPRAZolam Tablet, 0.5 MG, 1 tablet, Oral, three times daily, 30 day(s), 90 Tablet, Refills 0. Clinical Notes: PPS 40% Full Code Patient is not a candidate for hospice at this time. No recent hospitalizations. Dyspnea with moderate exertion, oxygen at 3 lpm via nasal cannula. 4. Cervical radiculopathy Notes: Continue gabapentin, Tramadol and Tylenol prn. Continue ROM exercises that were taught by PT. * Procedure Codes: G8734 ELDER MALTX SCR DOC NEG NO F/U RQR * Preventive Medicine: Screenings: Falls Risk Screening: No falls in the past year. Advance Care Planning Date of last Advance Care Plannin11/23/2023 Full code. No medical POA.. Elder Maltreatment Type of tool(s) used EASI, Findings of Screening Negative. Pain Assessment Follow up Follow Up plan discussed Yes Continue Tramadol and Tylenol . Tobacco Use Tobacco Counseling not done Non-smoker. Dementia Caregiver education and support provided No, Reason Not applicable. * Follow Up: 4 Weeks (Reason: Cervical radiculopathy, COPD, CHF) Care Plan: * Problems: * Billing Information: * Visit Code: 22458 Subsequent Home Care 3 (40 mins). 1123F ACP Documented - Non-billable. * Procedure Codes: G8734 ELDER MALTX SCR DOC NEG NO F/U RQR. Care Plan Details* * Sign off status: Completed true * Provider: SEJAL OWEN APN Date: 12/17/2024 History and Physical Notes * HPI (History of Present Illness) Category Sub-Category Detail Notes Category Not es Palliative Care Advance care planning Full code Follow Up Visit 79 year old white female presenting for follow up and palliative care visit. present for the visit. Chronic Pain Takes Tramadol and gabapentin for pain. She has no pain at this time but states that she has no relief ever. She is wanting to have surgery for her cervical stenosis but was told she was not a candidate. states that he believes that the gabapentin has made a difference in pain as she does not complains about pain as often. She states she takes tramadol 1-2 times per day. Pain remains to be in left neck and left arm. 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 She is on 3L continuous oxygen. She does not ambulate much. She has a bedside commode that she keeps by the couch where she is most of the time. She does complain of dapsone with moderate exertion. [employer] reports that recent CT scan shows aneurysm to be about 6.4cm large. This is increase from last measurement. She will be seeing a vascular surgeon for recommendations when called to be scheduled. Anxiety/depression She continues to use antidepressants and routine Xanax that is prescribed by a mental health specialist. She states that she is down because she wants to do things but her body does not allow her to do them due to the COPD and pain. Depression Screening PHQ-2 (2015 Edition) Little interest or pleasure in doing things?: Several days Feeling down, depressed, or hopeless?: S everal days Total Score: 2 Examination Category Sub-Category Detail Notes Category Not es General Examination GENERAL APPEARANCE: pleasant , alert, well hydrated, in no acute distress ENMT: pharynx normal, tons ils normal, no exudate NECK/THYROID: neck supple, no cerv ical lymphadenopathy CV: WNL, no edema RESP: Oxygen at 2.5 L per minute nasal cannula Diminished breath sounds throughout, even and unlabored NEUROLOGIC: WNL, cooperative wit h exam SKIN: WNL EXTREMITIES: no edema MUSCULOSKELETAL: Generalized Weakness , pain with ROM left shoulder, Decreased ROM left shoulder PSYCH: Alert, Oriented, 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
--- OUTSIDE RECORDS SUMMARY | 2025-01-10 15:00 | XMS_ITS | Clinical Summary ---
Author Organization [facility] Address [address] [place] [address] Care Team Providers Care Elementary Esl Teacher Name Role Phone Dnoald Macario MD Primary Care Provider [phone] Source Comments [facility],non-owned Affiliates and Associated Physician Practices is amultiple site organization consisting of ambulatory clinics and hospital sitesin [place], [place], [place] and [place]. This disclosure is being madepursuant to the Care Everywhere program and may not contain all information available regarding this patient. Last updated 18.[facility] Allergies No known active allergies Medications * [...] 04/03/2022 11:47 AM CDT Plan of Treatment Health Maintenance Due Date Last Done Comments BONE DENSITY TESTING 1945 MEDICARE AWV 12 MONTHS 1945 DTAP/TDAP/TD VACCINES (1 - Tdap) 1964 PNEUMOCOCCAL VACCINE 50+ (1 of 1 - PCV) 1995 ZOSTER VACCINE (1 of 2) 1995 Respiratory Syncytial Virus (RSV) Vaccine Pt: or over 60 yrs (1 - 1-dose 75+ series) 2020 COVID-19 VACCINE (3 - 2023- season) 2024 06/03/2021, 05/13/2021 INFLUENZA VACCINE (#1) 2024 , 01/02/2021, 08/08/2019, Additional history exists DEPRESSION SCREENING 10/31/2024 HEPATITIS B VACCINE Aged Out No longe r eligible based on patient's age to complete this topic HIB VACCINE Aged Out No longer eligi ble based on patient's age to complete this topic HPV VACCINE Aged Out No longer eligi ble based on patient's age to complete this topic MENINGOCOCCAL (Group B) VACCINE SHARED DECISION-MAKING Aged Out No longer eligible based on patient's age to complete this topic MENINGOCOCCAL GROUPS A/C/Y/W VACCINE Aged Out No longer eligible based on patient's age to complete this topic Care Teams Elementary Esl Teacher Relationship Specialty Start Date End Date Donald Macario MD [address] [place] [address] PCP - General Internal Medicine 04/03/22
--- OUTSIDE RECORDS SUMMARY | 2025-01-10 15:01 | XMS_ITS | Patient Health Record ---
Author Organization [facility] Address [address] [address] Care Team Providers Care Medical Records Assistant Name Role Phone JenntoyinRuchi drake Primary Care Provider SEJAL Newton Unavailable [phone] NATHAN LANDRUM Unavailable [phone] SACHIN FINLEY Unavailable ALLERGIES Allergen (clinical drug ingredient) Drug/Non Drug Allergy documented on EMR Reaction Allergy Type Onset Date Status melatonin Melatonin Unknown Drug Allergy Active REASON FOR REFERRAL Reason please refer to [facility] for physical therapy and occupational therapy evaluation and treatment Diagnosis 1 Cervical radiculopat hy (M54.12) Diagnosis 2 Chronic pain (G89.29 ) Referral Organization [facility] Referring Provider First Name NATHAN Referring Provider Last Name LUCITA Referring Provider Speciality Nurse Vijay arguello Referred Provider Specialty Physical The rapist Referral Priority Routine Reason [facility] P T/OT Diagnosis 1 Cervical radiculopat hy (M54.12) Diagnosis 2 Chronic pain (G89.29 ) Referral Organization [facility] Referring Provider First Name NATHAN Referring Provider Last Name LUCITA Referring Provider Speciality Nurse Vijay arguello Referred Provider Specialty Physical The rapist Referral Priority Routine MEDICATIONS Medication SIG (Take, Route, Frequency, Duration) Notes Start Date End Date Status Roflumilast 250 MCG 1 tablet Oral Once a day Active Ipratropium [place] 0.06 % 2 SPRAY INTRANASALLY TWICE A DAY NEEDED FOR ALLERGY SYMPTOMS ADMINISTER INTO EACH NOSTRIL Nasal Active Trelegy Ellipta 200-62.5-25 MCG/ACT 1 puff Inhalation Once a day Active Albuterol Sulfate HFA 108 (90 Base) MCG/ACT Inhalation Active Gabapentin 100 MG 100 Orally twice daily state controlled substance: [id number]; ISAIAS: [id number] Collaborative cabin cleaning supervisor: Dr. Nafisa Hubbard Active Ventolin HFA 108 (90 Base) MCG/ACT Inhalation Active Benzonatate 200 MG TAKE 1 CAPSULE BY MOUTH THREE TIMES A DAY NEEDED FOR COUGH Oral Active Acetaminophen Extra Strength 500 MG 2 tablets as needed Orally every 6 hrs Active traMADol HCl 50 MG 1.5 tablet as needed Oral every 6 hours as needed for pain for 30 day(s) Active Furosemide 40 MG take 1 tablet Oral once daily Active ALPRAZolam 0.5 MG TAKE 1 TABLET BY MOUTH THREE TIMES A DAY for 30 11/04/2024 Active Potassium Chloride ER 20 MEQ TAKE 1 TABLET BY MOUTH TWICE A DAY Oral Active Ferrous Sulfate 325 (65 Fe) MG TAKE 1 TABLET BY MOUTH TWICE A DAY WITH FOOD Oral for 30 Days Active buPROPion HCl ER (SR) 150 MG 1 tablet in the morning Orally Once a day for 30 day(s) Active SEROquel 50 MG 1 tablet at bedtime Orally Once a day for 30 day(s) Active Ondansetron HCl 4 MG 1 tablet Orally every 8 hours as neede for n/v Active diphenhydrAMINE HCl 25 MG 1 or 2 capsules Orally every 6 hours as needed for anxiety Active Sertraline HCl 100 MG take 1 tablet Oral once daily Active busPIRone HCl 10 MG 1 tablet Orally Twice a day Active Pantoprazole Sodium 40 MG 1 tablet Oral Once a day for 90 Days Active Aspirin 81 81 MG 1 tablet Orally Once a day Active Clopidogrel Bisulfate 75 MG 1 tablet Oral Once a day Active ALPRAZolam 0.5 MG 1 tablet Oral three times daily for 30 day(s) Active SOCIAL HISTORY Tobacco [...] User Heavy cigarett e smoker (20-39 cigs/day) PROBLEMS Problem Type ICD Code Onset Dates Problem Status W/U Status Risk SNOMED Code Notes Problem Anxiety (F41.9) Active confirmed Anxiet y (31375102) Problem Chronic pain (G89.29) Active confirmed 53347718 Problem CHF (congestive heart failure) (I50.9) Active confirmed 85795992 Problem Cervical radiculopathy (M54.12) Active confirmed Cervical radiculopathy (63884952) Problem COPD, 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) Active confirmed 809795894 VITAL SIGNS Heart Rate 73 /min 12/17/2024 Temperature 96.5 degrees Fahrenheit 12/17/2024 Respiratory Rate 20 /min 12/17/2024 Oximetry 99 % 12/17/2024 Blood pressure diastolic 70 mm Hg 12/17/2024 Height 5 ft 3 in in 12/17/2024 Blood pressure systolic 132 mm Hg 12/17/2024 Encounters Encounter Location Date Provider Diagnosis [facility] [address] [address] 02/02/2024 NATHAN LANDRUM [facility] [address] [place] [address] 05/15/2024 SEJAL LEXIE [facility] [address] [place] [address] 07/06/2024 SEJAL LEXIE [facility] [address] [place] [address] 07/24/2024 SEJAL LEXIE [facility] [address] [address] 10/15/2024 NATHAN LANDRUM Chronic pain G89.29 ; COPD, severe J44.9 ; Encounter for palliative care Z51.5 and Cervical radiculopathy M54.12 [facility] [address] [address] 01/19/2024 SACHIN FINLEY COPD, severe J44.9 ; Chronic pain G89.29 ; CHF (congestive heart failure) I50.9 and Encounter for palliative care Z51.5 [facility] [address] [address] 03/29/2024 NATHAN LANDRUM Chronic pain G89.29 ; COPD, severe J44.9 and Encounter for palliative care Z51.5 [place] [address] [place] [address] 04/11/2024 NATHAN MUNOZEBCHE Chronic pain G89.29 ; COPD, severe J44.9 ; Encounter for palliative care Z51.5 and Cervical radiculopathy M54.12 [place] [address] [address] 05/01/2024 NATHAN LANDRUM Chronic pain G89.29 ; COPD, severe J44.9 ; Encounter for palliative care Z51.5 and Cervical radiculopathy M54.[address] [address] 05/16/2024 SEJAL LEXIE Chronic pain G89.29 ; COPD, severe J44.9 ; Encounter for palliative care Z51.5 and Cervical radiculopathy M54.12 [place] [address] [address] 05/29/2024 SEJAL LEXIE Chronic pain G89.29 ; COPD, severe J44.9 ; Encounter for palliative care Z51.5 and Cervical radiculopathy M54.[address] [address] 06/18/2024 SEJAL LEXIE COPD, severe J44.9 ; Chronic pain G89.29 ; Encounter for palliative care Z51.5 and Cervical radiculopathy M54.12 [place] [address] [address] 07/10/2024 SEJAL LEXIE COPD, severe J44.9 ; Chronic pain G89.29 ; Encounter for palliative care Z51.5 and Cervical radiculopathy M54.12 [place] [address] [address] 07/31/2024 SEJAL LEXIE Chronic pain G89.29 ; COPD, severe J44.9 ; Encounter for palliative care Z51.5 ; Cervical radiculopathy M54.12 and Anxiety F41.[address] [address] 08/13/2024 SEJAL LEXIE COPD, severe J44.9 ; Chronic pain G89.29 ; Encounter for palliative care Z51.5 ; Cervical radiculopathy M54.12 ; Anxiety F41.9 and CHF (congestive heart failure) I50.9 [facility] [address] [address] 08/27/2024 SEJAL LEXIE Chronic pain G89.29 ; COPD, severe J44.9 ; Encounter for palliative care Z51.5 ; Cervical radiculopathy M54.12 ; Anxiety F41.9 and CHF (congestive heart failure) I50.9 [facility] [address] [address] 09/11/2024 SEJAL LEXIE Chronic pain G89.29 ; COPD, severe J44.9 ; Encounter for palliative care Z51.5 ; Cervical radiculopathy M54.12 ; Anxiety F41.9 ; CHF (congestive heart failure) I50.9 and Nausea R11.0 [facility] [address] [address] 09/20/2024 NATHAN GUEBERT Chronic pain G89.29 ; COPD, severe J44.9 ; Encounter for palliative care Z51.5 and Cervical radiculopathy M54.12 [facility] [address] [address] 10/04/2024 NATHAN GUEBERT Chronic pain G89.29 ; COPD, severe J44.9 ; Encounter for palliative care Z51.5 and Cervical radiculopathy M54.12 [facility] [address] [address] 11/01/2024 NATHAN GUEBERT Chronic pain G89.29 ; COPD, severe J44.9 ; Encounter for palliative care Z51.5 and Cervical radiculopathy M54.12 [facility] [address] [address] 12/17/2024 SEJAL LEXIE Chronic pain G89.29 ; COPD, severe J44.9 ; Encounter for palliative care Z51.5 and Cervical radiculopathy M54.12 [facility] [place] [address] [place] [address] 02/10/2024 NATHAN LANDRUM Encounter for palliative care Z51.5 [facility] [place] [address] [place] [address] 02/10/2024 NATHAN LANDRUM [facility] [address] [place] [address] 03/28/2024 NATHAN LANDRUM [facility] [address] [place] [address] 05/28/2024 SEJAL LEXIE [facility] - [address] [address] 06/26/2024 SEJAL LEXIE Chronic pain G89.29 [facility] [place] [address] [place] [address] 07/24/2024 SEJAL LEXIE [facility] [place] [address] [place] [address] 09/25/2024 NATHAN LANDRUM Encounter for palliative care Z51.5 [facility] - [address] [address] 10/15/2024 NATHAN LANDRUM [facility] [address] [place] [address] 12/10/2024 SEJAL LEXIE [facility] [address] [place] [address] 12/11/2024 SEJAL LEXIE ASSESSMENTS Encounter Date Diagnosis Assessment Notes Treatment Notes Treatment Clinical Notes Section Notes 02/10/2024 Encounter for palliative care (ICD-10 - Z51.5) 03/29/2024 Chronic pain (ICD-10 - G89.29) Complains of severe pain left neck and left arm. Reports minimal use of left arm due to pain. Takes Tylenol PRN. Reports good relief with tramadol 2-3 times per day. Patient to follow up with pain management regarding physical therapy. 04/11/2024 Chronic pain (ICD-10 - G89.29) Patient has followed with pain management and has decided to trial home health, physical therapy and occupational therapy. Nurse practitioner to order [facility] per patient request. 05/01/2024 Chronic pain (ICD-10 - G89.29) TIN FLIPPER to send referral for [facility] PT and OT for cervical radiculopathy 05/16/2024 Chronic pain (ICD-10 - G89.29) TIN FLIPPER to send referral for [facility] PT and OT for cervical radiculopathy 05/29/2024 Chronic pain (ICD-10 - G89.29) [facility] PT and OT for cervical radiculopathy TIN FLIPPER to review notes from pain management recent MRI after receipt. 06/18/2024 COPD, severe (ICD-10 - J44.9) Continue oxygen at 3-4 L per minute via nasal cannula. Reinforced rest periods. Reinforced nebulizer use as needed. 06/26/2024 Chronic pain (ICD-10 - G89.29) 07/10/2024 COPD, severe (ICD-10 - J44.9) Continue oxygen at 3-4 L per minute via nasal cannula. Reinforced rest periods. Reinforced nebulizer use as needed. 07/31/2024 Chronic pain (ICD-10 - G89.29) [facility] PT and OT for cervical radiculopathy TIN FLIPPER to review notes from pain management recent MRI after receipt. Increase tramadol to 1-1.5 tabs every 6 hours PRN 08/13/2024 COPD, severe (ICD-10 - J44.9) Continue oxygen at 3-4 L per minute via nasal cannula. Reinforced rest periods. Reinforced nebulizer use as needed. Needs treatment now 08/27/2024 Chronic pain (ICD-10 - G89.29) Continue pain medication. Discussed the need to do home therapy exercise learn from PT. Also discussed with patient that she will have some pain. Most likely we cannot get her pain to zero consistently. The goal is to get her pain management so that she can resume some of her ADLs. 09/11/2024 Chronic pain (ICD-10 - G89.29) Plan: increase gabapentin to 300mg in PM x 1 week and if tolerated increase AM dose to 200mg. Continue pain medication. Discussed the need to do home therapy exercise learn from PT. Also discussed with patient that she will have some pain. Most likely we cannot get her pain to zero consistently. The goal is to get her pain managed so that she can resume some of her ADLs. 09/20/2024 Chronic pain (ICD-10 - G89.29) Plan: trial and increase of gabapentin to 200 mg in the morning and 300 mg at night or 100 mg in the morning, 100 mg in the afternoon, and 300 mg at night. Continue pain medication. Discussed the need to do home therapy exercise learn from PT. Also discussed with patient that she will have some pain. Most likely we cannot get her pain to zero consistently. The goal is to get her pain managed so that she can resume some of her ADLs. 09/25/2024 Encounter for palliative care (ICD-10 - Z51.5) 10/04/2024 Chronic pain (ICD-10 - G89.29) Plan: continue trial of gabapentin to 200 mg in the morning and 300 mg at night. Continue physical therapy exercises at home. Follow with PCP at scheduled appointment next week. 10/15/2024 Chronic pain (ICD-10 - G89.29) Plan: continue trial of gabapentin to 200 mg in the morning and 300 mg at night. Continue physical therapy exercises at home. Follow with PCP at scheduled appointment next week. 11/01/2024 Chronic pain (ICD-10 - G89.29) Patient is taking 100 mg gabapentin in the morning and 300 mg gabapentin in the evening. She did trial increase dose, but it did not improve pain. 12/17/2024 Chronic pain (ICD-10 - G89.29) Continue taking medications as prescribed. Encouraged to do ROM exercises learned with therapy 11/01/2024 COPD, severe (ICD-10 - J44.9) Continue oxygen at 2.5 liters per minute via nasal cannula. 10/15/2024 COPD, severe (ICD-10 - J44.9) Continue oxygen at 2.5 - 4 L per minute via nasal cannula. Reinforced rest periods. Reinforced nebulizer use as needed. 12/17/2024 COPD, severe (ICD-10 - J44.9) Continue oxygen at 3 liters per minute via nasal cannula. 10/04/2024 COPD, severe (ICD-10 - J44.9) Continue oxygen at 2.5 - 4 L per minute via nasal cannula. Reinforced rest periods. Reinforced nebulizer use as needed. 09/20/2024 COPD, severe (ICD-10 - J44.9) Continue oxygen at 2.5 - 4 L per minute via nasal cannula. Reinforced rest periods. Reinforced nebulizer use as needed. 09/11/2024 COPD, severe (ICD-10 - J44.9) Continue oxygen at 3-4 L per minute via nasal cannula. Reinforced rest periods. Reinforced nebulizer use as needed. 08/27/2024 COPD, severe (ICD-10 - J44.9) Continue oxygen at 3-4 L per minute via nasal cannula. Reinforced rest periods. Reinforced nebulizer use as needed. Needs treatment now 08/13/2024 Chronic pain (ICD-10 - G89.29) Continue pain medication. Discussed the need to do home therapy exercise learn from PT. Also discussed with patient that she will have some pain. Most likely we cannot get her pain to zero consistently. The goal is to get her pain management so that she can resume some of her ADLs. 07/31/2024 COPD, severe (ICD-10 - J44.9) Continue oxygen at 3-4 L per minute via nasal cannula. Reinforced rest periods. Reinforced nebulizer use as needed. 07/10/2024 Chronic pain (ICD-10 - G89.29) [facility] PT and OT for cervical radiculopathy TIN FLIPPER to review notes from pain management recent MRI after receipt. Increase tramadol to 1-1.5 tabs every 6 hours PRN 06/18/2024 Chronic pain (ICD-10 - G89.29) [facility] PT and OT for cervical radiculopathy TIN FLIPPER to review notes from pain management recent MRI after receipt. Increase tramadol to 1-1.5 tabs every 6 hours PRN 05/29/2024 COPD, severe (ICD-10 - J44.9) Continue oxygen at 3-4 L per minute via nasal cannula. Reinforced rest periods. Reinforced nebulizer use as needed. 05/16/2024 COPD, severe (ICD-10 - J44.9) Continue oxygen at 3-4 L per minute via nasal cannula. Reinforced rest periods. Reinforced nebulizer use as needed. 05/01/2024 COPD, severe (ICD-10 - J44.9) Continue oxygen at 3-4 L per minute via nasal cannula. Reinforced rest periods. Reinforced nebulizer use as needed. 04/11/2024 COPD, severe (ICD-10 - J44.9) Continue oxygen at 3-4 L per minute via nasal cannula. Reinforced rest periods. Reinforced nebulizer use as needed. 03/29/2024 COPD, severe (ICD-10 - J44.9) Continue oxygen at 3 L per minute via nasal cannula. Reinforced rest periods. Reinforced nebulizer use as needed. 01/19/2024 COPD, severe (ICD-10 - J44.9) Patient O2 dependent with very minimal activity noted. She sleeps nearly upright on the couch with 4 pillows. Needs assistance with adl's and mobility. Continue medication as prescribed. Discussed reasons to call palliative care and/or PCP and when to call 911. Complains of occasional cough with white sputum. Denies shortness of breath at rest. Using nebulizer treatments 2 times daily. States that she knows she should be using the nebulizer treatments more frequently. Has O2 at 3 liters per nasal cannula. Using tessalon perles 1-2 times per day PRN cough. Denies wheezes. Patient walked 30+ feeet with nurse practitioner with hand hold assist and nurse practitioner. O2 at 3 liters with stable oxygen levels. Gait stable and patient tolerated well with minimal anxiety. Encouraged use of nebulizer treatments routinely every 4-6 hours while patient has increased cough, shortness of breath, and/or wheezing. Nurse practitioner to follow up in 2 weeks and PRN. 01/19/2024 Chronic pain (ICD-10 - G89.29) Complains of severe pain left neck and left arm. Reports minimal use of left arm due to pain. Takes Tylenol PRN. Reports good relief with tramadol 2-3 times per day. Patient scheduled for neurosurgery appointment on 01/20/2024 related left neck/arm pain. Nurse practitioner to follow up in 2 weeks. 04/11/2024 Encounter for palliative care (ICD-10 - Z51.5) PPS 40% No advanced directive, but patient wishes to be full code Spouse continues to wish to have POA completed by hobbing press operator 03/29/2024 Encounter for palliative care (ICD-10 - Z51.5) PPS 40% No advanced directive, but patient wishes to be full code Nurse practitioner educated on palliative care role in helping formulate POLST. Patient and spouse refused at this time. Spouse states he will have documents formulated prior to next palliative care visit in two weeks. 05/01/2024 Encounter for palliative care (ICD-10 - Z51.5) PPS 40% No advanced directive, but patient wishes to be full code Spouse continues to wish to have POA completed by hobbing press operator 05/16/2024 Encounter for palliative care (ICD-10 - Z51.5) PPS 40% No advanced directive, but patient wishes to be full code Spouse continues to wish to have POA completed by hobbing press operator 05/29/2024 Encounter for palliative care (ICD-10 - Z51.5) PPS 40% No advanced directive, but patient wishes to be full code Spouse continues to wish to have POA completed by hobbing press operator 06/18/2024 Encounter for palliative care (ICD-10 - Z51.5) PPS 40% No advanced directive, but patient wishes to be full code Spouse continues to wish to have POA completed by hobbing press operator 07/10/2024 Encounter for palliative care (ICD-10 - Z51.5) PPS 40% No advanced directive, but patient wishes to be full code Spouse continues to wish to have POA completed by hobbing press operator 07/31/2024 Encounter for palliative care (ICD-10 - Z51.5) PPS 40% No advanced directive, but patient wishes to be full code Spouse continues to wish to have POA completed by hobbing press operator 08/13/2024 Encounter for palliative care (ICD-10 - Z51.5) PPS 40% No advanced directive, but patient wishes to be full code Spouse continues to wish to have POA completed by hobbing press operator 08/27/2024 Encounter for palliative care (ICD-10 - Z51.5) PPS 40% No advanced directive, but patient wishes to be full code Spouse continues to wish to have POA completed by hobbing press operator 09/11/2024 Encounter for palliative care (ICD-10 - Z51.5) PPS 40% No advanced directive, but patient wishes to be full code 09/20/2024 Encounter for palliative care (ICD-10 - Z51.5) PPS 40% No advanced directive, but patient wishes to be full code 10/15/2024 Encounter for palliative care (ICD-10 - Z51.5) PPS 40% No advanced directive, but patient wishes to be full code. Patient and spouse informed of hospice and palliative care services. Patient is not a candidate for hospice at this time. She has had no recent hospitalizations , weight loss, or decline in function. 10/04/2024 Encounter for palliative care (ICD-10 - Z51.5) PPS 40% No advanced directive, but patient wishes to be full code. Patient and spouse informed of hospice and palliative care services. Patient is not a candidate for hospice at this time. She has had no recent hospitalizations , weight loss, or decline in function. 11/01/2024 Encounter for palliative care (ICD-10 - Z51.5) PPS 40% Full Code Patient is not a candidate for hospice at this time. No recent hospitalizations . Dyspnea with moderate exertion, oxygen at 2.5 lpm via nasal cannula. 12/17/2024 Encounter for palliative care (ICD-10 - Z51.5) PPS 40% Full Code Patient is not a candidate for hospice at this time. No recent hospitalizations . Dyspnea with moderate exertion, oxygen at 3 lpm via nasal cannula. 12/17/2024 Cervical radiculopathy (ICD-10 - M54.12) Continue gabapentin, Tramadol and Tylenol prn. Continue ROM exercises that were taught by PT. 11/01/2024 Cervical radiculopathy (ICD-10 - M54.12) Refill Tramadol. Continue Tramadol and Tylenol prn. Continue ROM exercises that were taught by PT. 10/04/2024 Cervical radiculopathy (ICD-10 - M54.12) Trial increased gabapentin. Reinforced physical therapy exercise exercises. Continue tramadol and Tylenol as needed. 10/15/2024 Cervical radiculopathy (ICD-10 - M54.12) Trial increased gabapentin. Reinforced physical therapy exercise exercises. Continue tramadol and Tylenol as needed. 09/11/2024 Cervical radiculopathy (ICD-10 - M54.12) Continue physical therapy and pain medication. Increase gabapentin to 100mg in AM and 300mg in PM x 1 week if tolerated well increase to 300mg BID. 09/20/2024 Cervical radiculopathy (ICD-10 - M54.12) Trial increased gabapentin. Reinforced physical therapy exercise exercises. Continue tramadol and Tylenol as needed. 08/13/2024 Cervical radiculopathy (ICD-10 - M54.12) Continue physical therapy and pain medication 08/27/2024 Cervical radiculopathy (ICD-10 - M54.12) Continue physical therapy and pain medication. Increase gabapentin to 100mg in AM and 300mg in PM x 1 week if tolerated well increase to 300mg BID. 07/31/2024 Cervical radiculopathy (ICD-10 - M54.12) Continue physical therapy and pain medication 07/10/2024 Cervical radiculopathy (ICD-10 - M54.12) Continue physical therapy and pain medication 06/18/2024 Cervical radiculopathy (ICD-10 - M54.12) Refer to [facility], physical therapy, and occupational therapy for evaluation and treatment Continue medication 05/29/2024 Cervical radiculopathy (ICD-10 - M54.12) Refer to [facility] health, physical therapy, and occupational therapy for evaluation and treatment Continue medication 05/16/2024 Cervical radiculopathy (ICD-10 - M54.12) Refer to [facility] health, physical therapy, and occupational therapy for evaluation and treatment 05/01/2024 Cervical radiculopathy (ICD-10 - M54.12) Refer to [facility] health, physical therapy, and occupational therapy for evaluation and treatment 04/11/2024 Cervical radiculopathy (ICD-10 - M54.12) Refer to [facility] health, physical therapy, and occupational therapy for evaluation and treatment 01/19/2024 CHF (congestive heart failure) (ICD-10 - I50.9) Patient reports mild bloating in her abdomen. No edema in her lower legs/feet. Continue medication as prescribed. Encouraged daily weights with patient and spouse. Recommend low sodium diet. 01/19/2024 Encounter for palliative care (ICD-10 - Z51.5) Ambulated 30+ feet with nurse practitioner and hand hold assist; tolerated well with mild anxiety and shortness of breath near end of walk with minimal time required to recover. Patient O2 dependent with generalized weakness. Fearful of falling with activity, so she reports using the wheelchair within her home. Has bedside commode set up next to couch. Requires assistance with getting off couch. Reports seeing a mental health [facility] for her anxiety and depression. Both patient and report severe and disabling anxiety with any out of the home trips, ie to doctor's office. Continue prescribed medications for depression and anxiety. Nurse practitioner to follow up in 2 weeks. 07/31/2024 Anxiety (ICD-10 - F41.9) Continue all medications. Advised I will follow up with mental health provider to see if there are any other options for her to use for times when anxiety is very high associated with going out of the house. 08/13/2024 Anxiety (ICD-10 - F41.9) Continue all medications. Advised I will follow up with mental health provider to see if there are any other options for her to use for times when anxiety is very high associated with going out of the house. 08/27/2024 Anxiety (ICD-10 - F41.9) Continue all medications. Advised I will follow up with mental health provider to see if there are any other options for her to use for times when anxiety is very high associated with going out of the house. 09/11/2024 Anxiety (ICD-10 - F41.9) Continue all medications. Advised I will follow up with mental health provider to see if there are any other options for her to use for times when anxiety is very high associated with going out of the house. 08/27/2024 CHF (congestive heart failure) (ICD-10 - I50.9) 08/13/2024 CHF (congestive heart failure) (ICD-10 - I50.9) 09/11/2024 CHF (congestive heart failure) (ICD-10 - I50.9) 09/11/2024 Nausea (ICD-10 - R11.0) 03/29/2024 Other 09/20/2024 Other PLAN OF TREATMENT Next Appt Details Provider Name:SEJAL OWEN, Praveena 01/14/2025 10:30:00 AM, [address], [address], [place], [address], Insurance Providers Payer Name Payer Address Payer Phone Subscriber Number Group Number Insured Name Patient Relationship to Insured Coverage Start Date Coverage End Date [employer] [place] [address] [address] [place] [phone] [id number] Hetal Argueta Self - patient is the insured MEDICAL (GENERAL) HISTORY Medical History History ICD Code COPD CHF Depression and Anxiety Lung cancer Chronic pain Cervical radiculopathy 2 Cardiac stents Surgical History Surgery Date(Month/Year) Lung cancer surgery - 2 lowe r lobes right lung with lymph nodes removed 10/1986 Hospitalization History Reason Date(Month/Year) Unplanned - Inflamed gall bladder 3 Lung cancer surgery 10/1986
== END 2025-01-10 13:16 | disposition home or self-care (01) ==
PROVIDERS: PCP Family Medicine; Visit Provider Physician Assistant
DX: R93.2 Abnormal findings on diagnostic imaging of liver and biliary tract (principal); K80.20 Calculus of gallbladder without cholecystitis without obstruction
CPT/HCPCS: 76705